=== PATIENT | female | born 1965 | race African-American/Black ===

== ENCOUNTER 2019-05-20 13:03 | Inpatient (IN) | payer MEDICAID ==
[~2019-05-20] VITALS: Ht 172.7 cm; Wt 117.5 kg
--- NOTE | 2019-05-20 13:17 | NUR ---
Patient BIBA ALS accompanied by DENNIS 183, transferred to bed 8. RN evaluating patient at bedside.
[2019-05-20 13:26] VITALS: BP 178/109
--- NOTE | 2019-05-20 13:53 | NUR ---
54 Y/O FEMALE BIB ALS C/O SOB AND DIFFICULTY BREATHING AND HEADACHE AND BILATERAL SHOULDER PAIN X 1 DAY . PT STATES WAS ADMITTED TO [facility] 05/16 FOR SIMILAR CC . PT STATES HAS A COUGH WITH INTERMITTENT YELLOW MUCOUS AND HAS BEEN SLEEPING SITTING UP. VS --> HR 63, RR 26, BP 160/104, TEMP 98.1, 100% ON MASK AT 6 LITERS. BED LOCKED AND IN LOW POSITION, 1 SIDERAIL UP. MEDICAL HX: HTN/CHF/COPD/DM/ASTHMA/SCIATIC PAIN ALLERGIES: MOTRIN/IBUPROFEN/TRAMADOL/KETAMINE
--- NOTE | 2019-05-20 15:02 | NUR ---
LAB AT BEDSIDE
--- NOTE | 2019-05-20 15:25 | NUR ---
PT SITTING UPRIGHT IN BED. VSS. WILL CONTINUE TO MONITOR .
[2019-05-20 15:33] LABS: ALBUMIN 2.9 g/dL (3.4-5.0); ANION GAP 11.9 (8-16); CARBON DIOXIDE 32.1 mmol/L (21-32); CREATININE 0.9 mg/dL (0.6-1.3); TOTAL BILIRUBIN 0.3 mg/dL (0.0-1.0)
[2019-05-20] MEDS ORDERED: MORPHINE SULFATE 4 MG/ML SYR IVP ONE (17:10)
[2019-05-20] MEDS ORDERED: FUROSEMIDE 100 MG/10 ML VIAL IVP ONE (17:15)
[2019-05-20] MEDS ORDERED: LANTUS SUBQ (17:38)
[2019-05-20] MEDS ORDERED: FURO-570 PO (17:38)
[2019-05-20] MEDS ORDERED: CARV3.12 PO (17:38)
--- NOTE | 2019-05-20 17:51 | NUR ---
PT ASSISTED TO BATHROOM VIA W/C.
--- NOTE | 2019-05-20 18:06 | NUR ---
PT SEMI-FOWLERS IN BED. RR EVEN AND UNLABORED. 1 SIDERAIL UP, BED LOW AND LOCKED. VSS. WILL CONTINUE TO MONITOR.
--- NOTE | 2019-05-20 18:16 | NUR ---
PER PT HER PCP HAS HER ON A 2 LITER FLUID RESTRICITON PER DAY. DR. PEDROZA MADE AWARE.
--- NOTE | 2019-05-20 19:15 | NUR ---
RECEIVED BEDSIDE REPORT FROM ER NURSE. PATIENT IS AWAKE, ALERT, AND COOPERATIVE. ADMITTING DIAGNOSIS RESPIRATORY DISTRESS. RESPIRATION EVEN UNLABORED ON 2L NC O2. NO DISTRESS NOTED. SKIN IS WARM AND DRY. IV PATENT AND INTACT. HEART RATE REGULAR. S1&S2 NOTED. BOWEL SOUNDS PRESENT IN ALL QUADRANTS. ABDOMEN SOFT AND NON-TENDER. LAST BM 05/20/19. MRSA SCREEN DONE. VITALS WERE TAKEN. PLAN OF CARE WAS DISCUSSED. ALL SAFETY MEASURES IN PLACE. ORIENT PATIENT TO THE ROOM, STAFF, AND CALL LIGHT. BED IS AT LOW POSITION. CALL LIGHT WITHIN REACH AND VERBALIZES ITS USE. WILL CONTINUE TO MONITOR.
[2019-05-20] MEDS ORDERED: GABA300C PO (19:16)
--- NOTE | 2019-05-20 19:17 | NUR ---
Patient will be admitted to care of DR KING. Admited to TELE. Will go to room 104B. Belongings list completed. Report to BELINDA LEVIN.
[2019-05-20] MEDS ORDERED: LORazepam 2 MG/ML VIAL IVP PRN (19:30)
[2019-05-20] MEDS ORDERED: ONDANSETRON 4 MG/2 ML VIAL IVP PRN (19:30)
[2019-05-20] MEDS ORDERED: ALBUTEROL 0.083% 2.5 MG/3 ML NEBU INH PRN (19:30)
[2019-05-20] MEDS ORDERED: HYDROcodone/APAP 5/325 MG 1 TAB TAB PO PRN (19:30)
[2019-05-20] MEDS ORDERED: ACETAMINOPHEN 325 MG TAB PO PRN (19:30)
[2019-05-20] MEDS ORDERED: DEXTROSE 50% 50 ML SYR IVP PRN (19:30)
[2019-05-20 20:30] LABS: HEMOGLOBIN 11.1 g/dL (12.0-16.0); RED BLOOD CELL COUNT(AUTO) 4.72 MIL/uL (4.20-5.40); WHITE BLOOD COUNT (AUTO) 5.9 K/uL (4.8-10.8)
[2019-05-20 20:31] LABS: MEAN CORPUSCULAR HEMOGLOBIN 24 pg (27-31); MEAN CORPUSCULAR HGB CONC 31 g/dL (33-37); PLATELET COUNT (AUTO) 300 K/uL (140-450); RED CELL DISTRIBUTION WIDTH 19.1 % (11.6-13.7)
--- NOTE | 2019-05-20 20:35 | NUR ---
PATIENT IS HUNGRY PROVIDED SANDWICH AND JUICE
--- NOTE | 2019-05-20 21:00 | NUR ---
[facility] CALLED REGARDING DR. FERNANDO GLOVER ORDER FOR LANTUS. ASKED PATIENT WHATS THE DOSAGE OF HER LANTUS MEDICATION AND THE FREQUENCY. PER PATIENT SHE TAKES 18UNITS OF LANTUS AT BEDTIME. CALLED DR. KING. TO NOTIFY AND VERIFY HIS ORDER. SAID OKAY TO ADMINISTER LANTUS DAILY AT BEDTIME 18 UNITS.
--- NOTE | 2019-05-20 21:40 | NUR ---
ALL SCHEDULED MEDS WERE GIVEN PER ORDER. PATIENT COMPLAINED OF 9/10 BACK PAIN. PRN PAIN MED ADMINISTERED PER ORDER. WILL CONTINUE TO MONITOR.
[2019-05-20] MEDS: MORPHINE SULFATE 2 MG/ML SYR IVP PRN (21:44)
[2019-05-20] MEDS: CARVEDILOL 3.125 MG TAB PO SCH (21:45)
[2019-05-20] MEDS: GABAPENTIN 300 MG CAP PO SCH (21:45)
[2019-05-20] MEDS: BLOOD GLUCOSE MONITORING 1 DEV DEV FS SCH (21:48)
[2019-05-20] MEDS: INSULIN LISPRO SLIDING SCALE 100 UNITS/ML VIAL SUBQ PRN (21:55)
[2019-05-20 21:58] LABS: LYMPHOCYTES % (MANUAL) 43 % (20-46)
[2019-05-20 21:59] LABS: BASOPHILS % (MANUAL) 0 % (0-2); EOSINOPHILS % (MANUAL) 0 % (0-4); MONOCYTES % (MANUAL) 0 % (5-12)
[2019-05-20 23:28] VITALS: BP 159/121
[2019-05-20 23:54] LABS: CREATINE KINASE MB 0.9 ng/mL (0-3.6)
[2019-05-21] VITALS: BP 129/52
--- NOTE | 2019-05-21 | NUR ---
VITALS WERE TAKEN. PATIENT IN STABLE CONDITION. NO DISTRESS NOTED. WILL CONTINUE TO MONITOR.
[2019-05-21] MEDS: IPRATROPIUM 0.02% 0.5 MG/2.5 ML NEBU INH SCH ×4 (01:23→20:08)
[2019-05-21] MEDS: MORPHINE SULFATE 2 MG/ML SYR IVP PRN ×3 (02:03→20:28)
--- NOTE | 2019-05-21 02:04 | NUR ---
PATIENT WOKE UP FROM BACK PAIN 01/03. PRN PAIN MED ADMINISTERED PER ORDER. WILL CONTINUE TO MONITOR.
[2019-05-21 04:00] VITALS: BP 150/100
--- NOTE | 2019-05-21 04:36 | NUR ---
VITALS WERE TAKEN. PATIENT IS IN STABLE CONDITION. NO DISTRESS NOTED. WILL CONTINUE TO MONITOR.
[2019-05-21] MEDS: BLOOD GLUCOSE MONITORING 1 DEV DEV FS SCH ×4 (06:39→21:44)
--- NOTE | 2019-05-21 07:16 | NUR ---
ENDORSED PATIENT TO DAY SHIFT NURSE. PATIENT IS IN STABLE CONDITION.
--- NOTE | 2019-05-21 07:17 | NUR ---
RECEIVED PATIENT FROM DYNAMITE CARTRIDGE CRIMPER NURSE LISA. RESPIRATIONS EVEN AND UNLABORED, ROOM AIR. SKIN ASSESSMENT COMPLETE. SKIN WARM, DRY AND INTACT. IV SITE PATENT AND INTACT. PATIENT IS AMBULATORY AND CONTINENT OF BOWEL AND BLADDER. NO C/O PAIN. NO S/SX ACUTE DISTRESS. PATIENT ORIENTED TO ROOM, STAFF AND CALL LIGHT. CALL LIGHT WITHIN REACH. WILL CONTINUE TO MONITOR.
[2019-05-21 08:00] VITALS: BP 153/99
[2019-05-21 08:22] LABS: BASOPHILS % (AUTO) 0.5 % (0.0-2.0); EOSINOPHILS # (AUTO) 0.1 K/uL (0-0.4); HEMATOCRIT 34.5 % (36-48); HEMOGLOBIN 10.6 g/dL (12.0-16.0); LYMPHOCYTES # (AUTO) 1.8 K/uL (2.5-16.5); MEAN CORPUSCULAR HEMOGLOBIN 23 pg (27-31); MEAN CORPUSCULAR HGB CONC 31 g/dL (33-37); MEAN CORPUSCULAR VOLUME 74.1 fL (80-94); MONOCYTES # (AUTO) 0.3 K/uL (0.8-1.0); MONOCYTES % (AUTO) 7.4 % (1.7-9.3); NEUTROPHILS # (AUTO) 2.4 K/uL (1.8-7.7); NEUTROPHILS % (AUTO) 52.1 % (42.2-75.2); PLATELET COUNT (AUTO) 269 K/uL (140-450); RED BLOOD CELL COUNT(AUTO) 4.65 MIL/uL (4.20-5.40); RED CELL DISTRIBUTION WIDTH 18.6 % (11.6-13.7); WHITE BLOOD COUNT (AUTO) 4.7 K/uL (4.8-10.8)
[2019-05-21 08:27] LABS: CARBON DIOXIDE 35.9 mmol/L (21-32); POTASSIUM 3.9 mmol/L (3.5-5.1)
--- NOTE | 2019-05-21 08:35 | NUR ---
DISCHARGE PLANNING: THIS IS A 54 Y/O OLD FEMALE PATIENT FROM HOME, WHO CAME IN DUE TO SOB. PAST MEDICAL HISTORY INCLUDE ASTHMA, CORONARY ARTERY DISEASE, COPD, DIABETES, CHF AND SCIATICA. INITIAL DIAGNOSIS OF RESPIRATORY DISTRESS. CURRENT LABS INCLUDE WBC 4.8, H/H 10.6/34.5, NA/K 143/3.9, BUN/CREA 17/1.0. MRSA NARES PENDING. ON LASIX IV. CARDIO AND PULMO CONSULTS IN PLACE. DC PLAN BACK TO HOME ONCE STABLE.
--- NOTE | 2019-05-21 08:38 | NUR ---
PATIENT HAS BEEN SCREENED AND CATEGORIZED MODERATE NUTRITION RISK. PATIENT WILL BE SEEN WITHIN 3-5 DAYS OF ADMISSION. 05/23/19 05/25/[address]
[2019-05-21 08:43] LABS: CREATINE KINASE MB 0.9 ng/mL (0-3.6)
[2019-05-21] MEDS: FUROSEMIDE 40 MG/4 ML VIAL IVP SCH ×2 (08:59→17:42)
[2019-05-21] MEDS ORDERED: INSULIN LANTUS 100 UNITS/ML 10 ML VIAL SUBQ SCH (09:00)
[2019-05-21] MEDS: GABAPENTIN 300 MG CAP PO SCH ×2 (09:00→21:32)
[2019-05-21] MEDS: CARVEDILOL 3.125 MG TAB PO SCH ×2 (09:00→21:33)
--- NOTE | 2019-05-21 09:00 | NUR ---
GAVE ORDERED DUE MEDICATIONS AT THIS TIME. PT TOLERATED WELL. BED IN LOW POSITION, CALL LIGHT AT BEDSIDE. WILL CONTINUE TO MONITOR.
[2019-05-21 11:17] LABS: MAGNESIUM 1.4 mg/dL (1.8-2.4)
--- NOTE | 2019-05-21 11:56 | NUR ---
PT IN RESTROOM AT THIS TIME. WILL CONTINUE TO MONITOR.
[2019-05-21 12:00] VITALS: BP 159/92
--- NOTE | 2019-05-21 13:13 | NUR ---
PT STATED DISLIKE FOR HOSPITAL FOOD. RETRIEVED BUTTER AND EXTRA SAUCE FOR MEAL FROM [facility]. PT IN STABLE CONDITION. BED IN LOW POSITION, CALL LIGHT AT BEDSIDE. WILL CONTINUE TO MONITOR.
--- NOTE | 2019-05-21 15:10 | NUR ---
GUY REPORTED TO DR KING PLACED I L N\C
[2019-05-21 16:00] VITALS: BP 158/98
--- NOTE | 2019-05-21 17:24 | NUR ---
PT EATING DINNER AT THIS TIME IN STABLE CONDITION. BED IN LOW POSITION, CALL LIGHT AT BEDSIDE. WILL CONTINUE TO MONITOR.
--- NOTE | 2019-05-21 19:24 | NUR ---
GAVE REPORT TO JUKE BOX SERVICER NURSE ZACHARY FOR CONTINUITY OF CARE. PT IN STABLE CONDITION.
--- NOTE | 2019-05-21 19:25 | NUR ---
RECEIVED BEDSIDE REPORT FROM AM SHIFT NURSE. PATIENT IS LYING ON BED, AWAKE AND ALERT. NO SOB OR DISTRESS NOTED ON 1 LPM VIA NASAL CANNULA. PATIENT IS AMBULATORY. IV ACCESS ON LEFT HAND 20 GAUGE, SALINE LOCK. PATENT AND INTACT. INITIAL ASSESSMENT DONE. BOARD UPDATED. BED IN LOW, SAFETY MEASURES IN PLACE. CALL LIGHT PLACED WITHIN PATIENT REACH. WILL CONTINUE TO MONITOR PATIENT.
[2019-05-21 20:00] VITALS: BP 147/95
--- NOTE | 2019-05-21 20:17 | NUR ---
RECEIVED PATIENT ON 1L NASAL CANNULA, PULSE OX SAT 98%. SCHEDULED BREATHING TREATMENT ADMINISTERED. TOLERATED TX WELL WITHOUT ADVERSE SIDE EFFECTS. PT MADE AWARE OF ORDERED MEDICATION FREQUENCY AND INSTRUCTED TO CALL NEEDED FOR SOB. NO ACUTE RESPIRATORY DISTRESS NOTED AT THIS TIME. WILL CONTINUE TO MONITOR.
[2019-05-21] MEDS: INSULIN LANTUS 100 UNITS/ML 10 ML VIAL SUBQ SCH (21:41)
[2019-05-21] MEDS: INSULIN LISPRO SLIDING SCALE 100 UNITS/ML VIAL SUBQ PRN (21:43)
--- NOTE | 2019-05-21 21:44 | NUR ---
PATIENT HAS A BLOOD GLUCOSE RESULT OF 244 WITH 4 UNITS OF REGULAR HUMALOG INSULIN GIVEN AT THIS TIME.
[2019-05-22 00:05] VITALS: BP 143/98
--- NOTE | 2019-05-22 00:05 | NUR ---
VITALS TAKEN AT THIS VISIBLE CHEST RISE AND FALL NOTED. WILL CONTINUE TO MONITOR PATIENT.
[2019-05-22] MEDS: IPRATROPIUM 0.02% 0.5 MG/2.5 ML NEBU INH SCH ×4 (01:50→18:49)
--- NOTE | 2019-05-22 01:59 | NUR ---
SCHEDULED BREATHING TREATMENT ADMINISTERED. TOLERATED TX WELL WITHOUT ADVERSE SIDE EFFECTS. NO ACUTE RESPIRATORY DISTRESS NOTED AT THIS TIME. WILL CONTINUE TO MONITOR.
--- NOTE | 2019-05-22 03:28 | NUR ---
ROUNDS DONE. NO SOB OR DISTRESS NOTED. CALL LIGHT PLACED WITHIN PATIENT REACH. WILL CONTINUE TO MONITOR PATIENT.
[2019-05-22 04:05] VITALS: BP 148/94
--- NOTE | 2019-05-22 04:05 | NUR ---
VITALS TAKEN AT THIS TIME. NO DISTRESS NOTED. WILL CONTINUE TO MONITOR PATIENT.
[2019-05-22] MEDS: BLOOD GLUCOSE MONITORING 1 DEV DEV FS SCH ×4 (06:50→20:55)
--- NOTE | 2019-05-22 06:51 | NUR ---
PATIENT HAD A BLOOD GLUCOSE OF 109. NO INSULIN COVERAGE NEEDED.
--- NOTE | 2019-05-22 07:15 | NUR ---
RECEIVED BEDSDIE REPORT FROM WOOD BORING MACHINE OPERATOR NURSE ZACHARY. PT IS AWAKE AND ALERT GETTING A BREATHING TX AT THIS TIME. PT IN NO ACUTE DISTRESS. PT NOT ON FALL PRECAUTIONS. PT IS ON 1 L O1 NC. IV SITE L HAND 20 G, SALINE LOCKED. SKIN IS INTACT. CALL LIGHT IS WITHIN REACH.
[2019-05-22 08:00] VITALS: BP 152/93
[2019-05-22] MEDS: GABAPENTIN 300 MG CAP PO SCH ×2 (09:35→20:57)
[2019-05-22] MEDS: FUROSEMIDE 40 MG/4 ML VIAL IVP SCH ×2 (09:35→16:30)
[2019-05-22] MEDS: CARVEDILOL 3.125 MG TAB PO SCH ×2 (09:35→20:57)
--- NOTE | 2019-05-22 09:45 | NUR ---
AM MEDS ADMINISTERED, PT TOLERATED WELL. PT IS CURRENTLY SATTING 94-97% ON ROOM AIR. DAUGHTER IS VISITING AT BEDSIDE. PT IN NO ACUTE RESPIRATORY DISTRESS. C/O BACK PAIN, WILL ADMINISTER PRN IV MORPHINE.
[2019-05-22] MEDS: MORPHINE SULFATE 2 MG/ML SYR IVP PRN ×3 (10:01→21:07)
--- NOTE | 2019-05-22 10:15 | NUR ---
PT ASKING TO TALK TO A DIETITIAN ABOUT HER MEAL OPTIONS. PT DOES NOT LIKE THE HOSPITAL'S MEAL OFFERS. I CALLED [facility] AND LEFT A MESSAGE FOR A DIETITIAN OR A GOLD LETTERER TO COME TALK TO THE PT.
[2019-05-22 12:00] VITALS: BP 152/91
[2019-05-22] MEDS: INSULIN LISPRO SLIDING SCALE 100 UNITS/ML VIAL SUBQ PRN ×2 (12:15→21:14)
[2019-05-22 16:00] VITALS: BP 135/91
--- NOTE | 2019-05-22 18:53 | NUR ---
RECEIVED PT FROM AM SHIFT. PT IN NO APPARENT RESPIRATORY DISTRESS AT THIS TIME; HR 94, RR 18, SPO2 96% ON ROOM AIR AND A CLEAR BREATH SOUNDS ON THE UPPER LOBES; DIMINISHED BREATH SOUNDS ON LOWER LOBES. HHN TX GIVEN ORDERED WITH NO ADVERSE REACTION. PT INFORMED TO CALL RN OR SUPPLY CHAIN ASSISTANT FOR HHN PRN TX WHEN EXPERIENCING SOB. HOB > 30. FAMILY AT BEDSIDE. WILL CONTINUE TO MONITOR PT.
--- NOTE | 2019-05-22 19:22 | NUR ---
RECIEVED PT AAOX4 , NID - 02 SAT WNL , IV SITE INTACT AND PATENT , C/O FUENTES - WILL MEDICATED . PLAN OF CARE DISCUSSED AND VERBALIZE UNDERSTANDING , ON SAFETY PRECAUTION PROTOCOL - CALL LIGHT WITHIN REACH . WILL CONT. TO MONITOR.
--- NOTE | 2019-05-22 19:22 | NUR ---
ENDORSED PT TO WIRE RIGGER NURSE IN STABLE CONDITION.
[2019-05-22 20:00] VITALS: BP 130/80
[2019-05-22] MEDS: INSULIN LANTUS 100 UNITS/ML 10 ML VIAL SUBQ SCH (21:02)
--- NOTE | 2019-05-22 22:00 | NUR ---
MADE ROUNDS , PROVIDE SANDWICH FOR SNACKS , REDUCED FUENTES SHE SAID , ISMAEL. TO MONITOR.
[2019-05-23] VITALS: BP 133/75
--- NOTE | 2019-05-23 | NUR ---
MADE ROUNDS , NO S/S OF ACUTE DISTRESS NOTED AT THIS TIME , WILL CONT. TO MONITOR , CALL LIGHT WITHIN REACH.
[2019-05-23] MEDS: IPRATROPIUM 0.02% 0.5 MG/2.5 ML NEBU INH SCH ×2 (00:18→11:00)
--- NOTE | 2019-05-23 01:40 | NUR ---
MADE ROUNDS , NO S/ S OF ACUTE DISTRESS NOTED AT THIS TIME . CALL LIGHT WITHIN REACH.
[2019-05-23] MEDS: MORPHINE SULFATE 2 MG/ML SYR IVP PRN (03:37)
[2019-05-23 04:00] VITALS: BP 125/80
--- NOTE | 2019-05-23 04:00 | NUR ---
MADE ROUNDS , NO S/ S OF ACUTE DISTRESS NOTED AT THIS TIME , JUST MEDICATED W/ MORPHINE - WILL CONT. TO MONITOR.
[2019-05-23] MEDS: BLOOD GLUCOSE MONITORING 1 DEV DEV FS SCH ×2 (05:58→11:30)
--- NOTE | 2019-05-23 06:09 | NUR ---
MADE ROUNDS , NO COMPLAIN MADE AT THIS TIME , LATEST HGT 11O
--- NOTE | 2019-05-23 07:10 | NUR ---
ENDORSED - PT -STABLE.
--- NOTE | 2019-05-23 07:15 | NUR ---
RECEIVED PT FROM HUMAN RESOURCES COORDINATOR NURSE, SEBAS, PT IS AWAKE AND SEATED ON THE BED WITH SIDE RAILS UP AND CALL LIGHT WITHIN REACH, IV LINE ON THE LEFT HAND G. 20 ON SALINE LOCK, PT IS ON ROOM AIR AND DENIES PAIN AND NO SIGN OF DISTRESS NOTED AND WILL MONITOR PT.
[2019-05-23 08:00] VITALS: BP 150/96
--- NOTE | 2019-05-23 08:22 | NUR ---
PATIENT HAS BEEN SCREENED AND CATEGORIZED MODERATE NUTRITION RISK. PATIENT WILL BE SEEN WITHIN 3-5 DAYS OF ADMISSION. 05/25/19 05/27/[address] Addendum: 05/23/19 at [address] DISREGARD NOTE ABOVE.
[2019-05-23] MEDS ORDERED: LANTUS SUBQ (08:56)
[2019-05-23] MEDS: GABAPENTIN 300 MG CAP PO SCH (09:03)
[2019-05-23] MEDS: FUROSEMIDE 40 MG/4 ML VIAL IVP SCH (09:03)
--- NOTE | 2019-05-23 09:03 | NUR ---
PT WAS GIVEN THE SCHEDULED AM MEDICATIONS, PARAMETER CHECKED, BP IS 150/96, TEMP IS 97.9,PULSE IS 80 MANUALLY, WILL MONITOR PT.
[2019-05-23] MEDS: CARVEDILOL 3.125 MG TAB PO SCH (09:05)
[2019-05-23 09:33] LABS: EOSINOPHILS # (AUTO) 0.1 K/uL (0-0.4); HEMOGLOBIN 10.6 g/dL (12.0-16.0); NEUTROPHILS # (AUTO) 2.2 K/uL (1.8-7.7); WHITE BLOOD COUNT (AUTO) 4.8 K/uL (4.8-10.8)
[2019-05-23 09:40] LABS: HEMATOCRIT 33.2 % (36-48); MEAN CORPUSCULAR HEMOGLOBIN 23 pg (27-31); MEAN CORPUSCULAR HGB CONC 32 g/dL (33-37); MEAN CORPUSCULAR VOLUME 70.9 fL (80-94); PLATELET COUNT (AUTO) 211 K/uL (140-450); RED BLOOD CELL COUNT(AUTO) 4.69 MIL/uL (4.20-5.40); RED CELL DISTRIBUTION WIDTH 19.3 % (11.6-13.7)
[2019-05-23 09:43] LABS: BASOPHILS # (AUTO) 0.1 K/uL (0.00-0.22); BASOPHILS % (AUTO) 1.5 % (0.0-2.0); EOSINOPHILS % (AUTO) 1.8 % (0.0-4.0); LYMPHOCYTES # (AUTO) 2.2 K/uL (2.5-16.5); LYMPHOCYTES % (AUTO) 44.9 % (20.5-51.1); MONOCYTES # (AUTO) 0.3 K/uL (0.8-1.0); MONOCYTES % (AUTO) 6.3 % (1.7-9.3); NEUTROPHILS % (AUTO) 45.5 % (42.2-75.2)
[2019-05-23 09:46] LABS: ANION GAP 7.3 (8-16); CARBON DIOXIDE 36.2 mmol/L (21-32); CREATININE 1.1 mg/dL (0.6-1.3); POTASSIUM 3.5 mmol/L (3.5-5.1)
--- NOTE | 2019-05-23 11:30 | NUR ---
PT'S BLOOD GLUCOSE WAS CHECKED AND RESULT IS 147, NO INSULIN COVERAGE NEEDED. WILL MONITOR PT.
[2019-05-23 12:00] VITALS: BP 136/87
--- NOTE | 2019-05-23 14:55 | NUR ---
DISCHARGED PT. TO HOME. ACCOMPANIED BY FAMILY. IV LINE AND ARMBANDS REMOVED. HEART MONITOR REMOVED. DISCHARGED TEACHING GIVEN TO PT. AND PT. VERBALIZES UNDERSTANDING. PT. DENIES PAIN AND STABLE AT THIS TIME.
== END 2019-05-23 14:55 | disposition home or self-care (01) | DRG 133 ==
LOC: MED 13:03 → MTU 18:44
PROVIDERS: ADMIT Preventive Medicine Preventive Medicine/Occupational Environmental Medicine; ATTEND Preventive Medicine Preventive Medicine/Occupational Environmental Medicine
DX: J96.01 Acute respiratory failure with hypoxia (principal); I42.9 Cardiomyopathy, unspecified; E11.40 Type 2 diabetes mellitus with diabetic neuropathy, unspecified; E11.65 Type 2 diabetes mellitus with hyperglycemia; E88.09 Other disorders of plasma-protein metabolism, not elsewhere classified; I50.9 Heart failure, unspecified; I11.0 Hypertensive heart disease with heart failure; I25.10 Atherosclerotic heart disease of native coronary artery without angina pectoris; J44.9 Chronic obstructive pulmonary disease, unspecified; M54.30 Sciatica, unspecified side; Z88.8 Allergy status to other drugs, medicaments and biological substances; Z98.51 Tubal ligation status
CPT/HCPCS: 36415; 36600; 71045; 80048; 80053; 82550; 82553; 82803; 82948; 83735; 83880; 84100; 84484; 85025; 87081; 93005; 94640; 96374; 96375; 99285; J1815; J1940; J2270; J7613; J7644; Q0092

== ENCOUNTER 2019-05-30 19:41 | Inpatient (IN) | payer MEDICAID ==
[~2019-05-30] VITALS: Ht 172.7 cm; Wt 115.2 kg
[~2019-05-30 19:41] MED LIST: CARV3.12 PO; FURO-570 PO; GABA300C PO; LANTUS SUBQ
[2019-05-30 19:45] VITALS: BP 161/120
[2019-05-30] MEDS ORDERED: methylPREDNISolone SS 125 MG in WATER STERILE 2 ML IVP ONE (20:50)
[2019-05-30] MEDS ORDERED: FUROSEMIDE 40 MG/4 ML VIAL IVP ONE (20:50)
[2019-05-30] MEDS ORDERED: ALBUTEROL SULFATE/IPRATROPIU 3 ML SOL IH ONE (20:50)
[2019-05-30] MEDS ORDERED: MORPHINE SULFATE 4 MG/ML SYR IVP ONE (20:50)
[2019-05-30] MEDS ORDERED: MAG SULF 2000 MG/WATER PREMIX 50 ML IV ONE (20:50)
[2019-05-30] MEDS ORDERED: ENALAPRILAT 2.5 MG/2 ML VIAL IVP ONE (20:50)
[2019-05-30] MEDS ORDERED: methylPREDNISolone SS 125 MG/2 ML VIAL ONE (20:57)
[2019-05-30] MEDS ORDERED: WATER STERILE 10 ML MC ONE (20:57)
[2019-05-30] MEDS ORDERED: ONDANSETRON 4 MG/2 ML VIAL IVP ONE (21:05)
[2019-05-30 21:28] LABS: BASOPHILS # (AUTO) 0.2 K/uL (0.00-0.22); BASOPHILS % (AUTO) 2.5 % (0.0-2.0); EOSINOPHILS # (AUTO) 0.1 K/uL (0-0.4); EOSINOPHILS % (AUTO) 1.7 % (0.0-4.0); HEMATOCRIT 35.5 % (36-48); HEMOGLOBIN 11.4 g/dL (12.0-16.0); LYMPHOCYTES # (AUTO) 2.4 K/uL (2.5-16.5); LYMPHOCYTES % (AUTO) 38.3 % (20.5-51.1); MEAN CORPUSCULAR HEMOGLOBIN 23 pg (27-31); MEAN CORPUSCULAR HGB CONC 32 g/dL (33-37); MEAN CORPUSCULAR VOLUME 71.4 fL (80-94); MONOCYTES # (AUTO) 0.5 K/uL (0.8-1.0); MONOCYTES % (AUTO) 7.5 % (1.7-9.3); NEUTROPHILS # (AUTO) 3.1 K/uL (1.8-7.7); PLATELET COUNT (AUTO) 192 K/uL (140-450); RED BLOOD CELL COUNT(AUTO) 4.97 MIL/uL (4.20-5.40); RED CELL DISTRIBUTION WIDTH 18.9 % (11.6-13.7); WHITE BLOOD COUNT (AUTO) 6.3 K/uL (4.8-10.8)
[2019-05-30 21:37] LABS: APPEARANCE,URINE CLEAR (CLEAR); BILIRUBIN,URINE NEGATIVE (NEGATIVE); BLOOD, URINE TRACE-I (NEGATIVE); COLOR,URINE YELLOW (YELLOW); LEUKOCYTE ESTERASE ,URINE NEGATIVE (NEGATIVE); NITRITE, URINE NEGATIVE (NEGATIVE); PH,URINE 5.5 (5.0-9.0); UGLUCOSE NEGATIVE (NEGATIVE)
[2019-05-30 21:38] LABS: ALBUMIN 3.3 g/dL (3.4-5.0); ANION GAP 12.4 (8-16); CARBON DIOXIDE 28.6 mmol/L (21-32); CREATININE 1.2 mg/dL (0.6-1.3); TOTAL BILIRUBIN 0.3 mg/dL (0.0-1.0)
[2019-05-31] MEDS ORDERED: ACETAMINOPHEN EXTRA STRENGTH 500 MG TAB PO ONE (01:10)
[2019-05-31] MEDS ORDERED: hydrALAZINE 20 MG/ML VIAL IVP ONE (01:10)
[2019-05-31 02:00] VITALS: BP 161/100
[2019-05-31] MEDS ORDERED: DEXTROSE 50% 50 ML SYR IVP PRN (02:55)
[2019-05-31] MEDS ORDERED: cloNIDine 0.1 MG TAB PO PRN (02:55)
[2019-05-31] MEDS ORDERED: HYDROcodone/APAP 5/325 MG 1 TAB TAB PO PRN ×2 (02:55→13:35)
[2019-05-31] MEDS ORDERED: HYDROcodone/APAP 10/325 MG 1 TAB TAB ONE (03:23)
[2019-05-31 04:00] VITALS: BP 129/81
[2019-05-31] MEDS: BLOOD GLUCOSE MONITORING 1 DEV DEV FS SCH ×4 (06:53→21:14)
[2019-05-31] MEDS: INSULIN LISPRO SLIDING SCALE 100 UNITS/ML VIAL SUBQ PRN ×4 (06:53→21:37)
[2019-05-31 07:22] LABS: HEMATOCRIT 35.1 % (36-48); HEMOGLOBIN 10.9 g/dL (12.0-16.0); MEAN CORPUSCULAR HEMOGLOBIN 23 pg (27-31); MEAN CORPUSCULAR HGB CONC 31 g/dL (33-37); MEAN CORPUSCULAR VOLUME 73.5 fL (80-94); PLATELET COUNT (AUTO) 166 K/uL (140-450); RED BLOOD CELL COUNT(AUTO) 4.78 MIL/uL (4.20-5.40); RED CELL DISTRIBUTION WIDTH 18.8 % (11.6-13.7); WHITE BLOOD COUNT (AUTO) 8.5 K/uL (4.8-10.8)
[2019-05-31 07:48] LABS: ALBUMIN 3.1 g/dL (3.4-5.0); ANION GAP 10.2 (8-16); CARBON DIOXIDE 30.3 mmol/L (21-32); CREATININE 1.3 mg/dL (0.6-1.3); POTASSIUM 4.5 mmol/L (3.5-5.1); TOTAL BILIRUBIN 0.4 mg/dL (0.0-1.0)
[2019-05-31 08:00] VITALS: BP 140/84
[2019-05-31] MEDS ORDERED: ONDANSETRON 4 MG/2 ML VIAL ONE (09:20)
[2019-05-31 09:30] LABS: LYMPHOCYTES % (MANUAL) 10 % (20-46); MONOCYTES % (MANUAL) 3 % (5-12)
[2019-05-31] MEDS ORDERED: ONDANSETRON 4 MG/2 ML VIAL IVP PRN (09:30)
[2019-05-31] MEDS: GABAPENTIN 300 MG CAP PO SCH ×2 (09:32→21:10)
[2019-05-31] MEDS: FUROSEMIDE 40 MG TAB PO SCH ×2 (09:32→21:10)
[2019-05-31] MEDS: CARVEDILOL 3.125 MG TAB PO SCH ×2 (09:33→21:10)
[2019-05-31] MEDS: methylPREDNISolone SS 40 MG/ML VIAL IVP SCH ×2 (09:33→21:09)
[2019-05-31 12:00] VITALS: BP 143/77
[2019-05-31] MEDS ORDERED: ACETAMINOPHEN 325 MG TAB PO PRN (13:35)
[2019-05-31] MEDS ORDERED: LORazepam 2 MG/ML VIAL IVP PRN (13:35)
[2019-05-31] MEDS ORDERED: ALBUTEROL 0.083% 2.5 MG/3 ML NEBU INH PRN (13:35)
[2019-05-31 14:14] LABS: CREATINE KINASE MB 1.3 ng/mL (0-3.6)
[2019-05-31 16:00] VITALS: BP 144/80
[2019-05-31] MEDS: IPRATROPIUM 0.02% 0.5 MG/2.5 ML NEBU INH SCH (19:09)
[2019-05-31 20:00] VITALS: BP 128/76
[2019-05-31] MEDS: INSULIN LANTUS 100 UNITS/ML 10 ML VIAL SUBQ SCH (21:13)
[2019-05-31] MEDS: ONDANSETRON 4 MG/2 ML VIAL IVP PRN (21:23)
[2019-06-01] VITALS: BP 148/78
[2019-06-01] MEDS: IPRATROPIUM 0.02% 0.5 MG/2.5 ML NEBU INH SCH ×4 (01:00→19:40)
[2019-06-01 04:00] VITALS: BP 145/85
[2019-06-01] MEDS: INSULIN LISPRO SLIDING SCALE 100 UNITS/ML VIAL SUBQ PRN ×4 (06:49→20:19)
[2019-06-01 07:18] LABS: BASOPHILS # (AUTO) 0.1 K/uL (0.00-0.22); BASOPHILS % (AUTO) 1.3 % (0.0-2.0); EOSINOPHILS % (AUTO) 0.1 % (0.0-4.0); HEMATOCRIT 34.8 % (36-48); HEMOGLOBIN 10.9 g/dL (12.0-16.0); LYMPHOCYTES # (AUTO) 1.4 K/uL (2.5-16.5); LYMPHOCYTES % (AUTO) 20.9 % (20.5-51.1); MEAN CORPUSCULAR HEMOGLOBIN 23 pg (27-31); MEAN CORPUSCULAR HGB CONC 31 g/dL (33-37); MEAN CORPUSCULAR VOLUME 73.5 fL (80-94); MONOCYTES # (AUTO) 0.2 K/uL (0.8-1.0); MONOCYTES % (AUTO) 3.4 % (1.7-9.3); NEUTROPHILS # (AUTO) 5.1 K/uL (1.8-7.7); NEUTROPHILS % (AUTO) 74.3 % (42.2-75.2); PLATELET COUNT (AUTO) 193 K/uL (140-450); RED BLOOD CELL COUNT(AUTO) 4.73 MIL/uL (4.20-5.40); RED CELL DISTRIBUTION WIDTH 18.9 % (11.6-13.7); WHITE BLOOD COUNT (AUTO) 6.8 K/uL (4.8-10.8)
[2019-06-01] MEDS: BLOOD GLUCOSE MONITORING 1 DEV DEV FS SCH ×4 (07:37→20:15)
[2019-06-01 07:38] LABS: ANION GAP 11.6 (8-16); CARBON DIOXIDE 29.7 mmol/L (21-32); CREATININE 1.3 mg/dL (0.6-1.3); POTASSIUM 4.3 mmol/L (3.5-5.1)
[2019-06-01 07:42] LABS: MAGNESIUM 1.7 mg/dL (1.8-2.4)
[2019-06-01 08:00] VITALS: BP 145/84
[2019-06-01] MEDS: ONDANSETRON 4 MG/2 ML VIAL IVP PRN ×3 (08:12→20:18)
[2019-06-01] MEDS: methylPREDNISolone SS 40 MG/ML VIAL IVP SCH ×2 (08:15→20:15)
[2019-06-01] MEDS: GABAPENTIN 300 MG CAP PO SCH ×2 (08:16→20:15)
[2019-06-01] MEDS: FUROSEMIDE 40 MG TAB PO SCH ×2 (08:16→20:15)
[2019-06-01] MEDS: CARVEDILOL 3.125 MG TAB PO SCH ×2 (08:17→20:15)
[2019-06-01 12:00] VITALS: BP 125/84
[2019-06-01 14:32] LABS: CREATINE KINASE MB 0.9 ng/mL (0-3.6)
[2019-06-01 16:00] VITALS: BP 138/78
[2019-06-01] MEDS: ACETAMINOPHEN 325 MG TAB PO PRN (18:23)
[2019-06-01] MEDS: HYDROcodone/APAP 10/325 MG 1 TAB TAB PO PRN (18:59)
[2019-06-01 20:00] VITALS: BP 139/67
[2019-06-01] MEDS: INSULIN LANTUS 100 UNITS/ML 10 ML VIAL SUBQ SCH (20:16)
[2019-06-01] MEDS: MORPHINE SULFATE 2 MG/ML SYR IVP PRN (23:22)
[2019-06-02] VITALS: BP 134/89
[2019-06-02] MEDS: IPRATROPIUM 0.02% 0.5 MG/2.5 ML NEBU INH SCH ×4 (01:00→19:52)
[2019-06-02] MEDS: CHLORHEXADINE GLUC 2% CLOTH TP SCH ×2 (01:48→13:03)
[2019-06-02 04:00] VITALS: BP 146/86
[2019-06-02] MEDS: MORPHINE SULFATE 2 MG/ML SYR IVP PRN ×4 (04:30→21:13)
[2019-06-02] MEDS: BLOOD GLUCOSE MONITORING 1 DEV DEV FS SCH ×4 (06:25→21:10)
[2019-06-02] MEDS: INSULIN LISPRO SLIDING SCALE 100 UNITS/ML VIAL SUBQ PRN ×4 (06:26→21:35)
[2019-06-02 08:00] VITALS: BP 134/88
[2019-06-02] MEDS: MUPIROCIN CA NASAL 2% 1GM TUBE NS SCH (08:11)
[2019-06-02] MEDS: FUROSEMIDE 40 MG TAB PO SCH ×2 (08:11→21:12)
[2019-06-02] MEDS: methylPREDNISolone SS 40 MG/ML VIAL IVP SCH ×2 (08:11→21:11)
[2019-06-02] MEDS: GABAPENTIN 300 MG CAP PO SCH ×2 (08:12→21:11)
[2019-06-02] MEDS: HYDROcodone/APAP 10/325 MG 1 TAB TAB PO PRN (08:12)
[2019-06-02] MEDS: CARVEDILOL 3.125 MG TAB PO SCH ×2 (08:12→21:11)
[2019-06-02] MEDS ORDERED: MUPIROCIN CA NASAL 2% 1GM TUBE NS SCH (09:00)
[2019-06-02 12:00] VITALS: BP 130/88
[2019-06-02 16:00] VITALS: BP 143/81
[2019-06-02 20:00] VITALS: BP 150/88
[2019-06-02] MEDS: INSULIN LANTUS 100 UNITS/ML 10 ML VIAL SUBQ SCH (21:13)
[2019-06-02] MEDS: ONDANSETRON 4 MG/2 ML VIAL IVP PRN (21:34)
[2019-06-03] VITALS: BP 158/100
[2019-06-03] MEDS: CHLORHEXADINE GLUC 2% CLOTH TP SCH ×2 (01:00→13:36)
[2019-06-03] MEDS: IPRATROPIUM 0.02% 0.5 MG/2.5 ML NEBU INH SCH ×3 (01:23→15:32)
[2019-06-03 04:00] VITALS: BP 140/88
[2019-06-03] MEDS: MORPHINE SULFATE 2 MG/ML SYR IVP PRN ×2 (04:32→11:32)
[2019-06-03] MEDS: BLOOD GLUCOSE MONITORING 1 DEV DEV FS SCH ×3 (06:20→17:03)
[2019-06-03] MEDS: INSULIN LISPRO SLIDING SCALE 100 UNITS/ML VIAL SUBQ PRN ×3 (07:07→17:53)
[2019-06-03 08:00] VITALS: BP 170/80
[2019-06-03] MEDS: MUPIROCIN CA NASAL 2% 1GM TUBE NS SCH (09:04)
[2019-06-03] MEDS: FUROSEMIDE 40 MG TAB PO SCH (09:05)
[2019-06-03] MEDS: GABAPENTIN 300 MG CAP PO SCH (09:05)
[2019-06-03] MEDS: CARVEDILOL 3.125 MG TAB PO SCH (09:05)
[2019-06-03] MEDS: ACETAMINOPHEN 325 MG TAB PO PRN (09:05)
[2019-06-03] MEDS: ONDANSETRON 4 MG/2 ML VIAL IVP PRN (09:11)
[2019-06-03] MEDS: methylPREDNISolone SS 40 MG/ML VIAL IVP SCH (09:18)
[2019-06-03 12:00] VITALS: BP 156/107
[2019-06-03 16:00] VITALS: BP 156/91
[2019-06-03] MEDS ORDERED: PRED20TA5 PO (17:41)
[2019-06-03] MEDS ORDERED: PRED10TA5 PO (17:41)
[2019-06-03 17:59] VITALS: BP 156/91
== END 2019-06-03 20:02 | disposition home or self-care (01) | DRG 140 ==
LOC: MED 19:41 → MTU 05-31 00:51
PROVIDERS: ADMIT Preventive Medicine Preventive Medicine/Occupational Environmental Medicine; ATTEND Preventive Medicine Preventive Medicine/Occupational Environmental Medicine
DX: J44.1 Chronic obstructive pulmonary disease with (acute) exacerbation (principal); J96.00 Acute respiratory failure, unspecified whether with hypoxia or hypercapnia; I11.0 Hypertensive heart disease with heart failure; I50.9 Heart failure, unspecified; E11.65 Type 2 diabetes mellitus with hyperglycemia; D64.9 Anemia, unspecified; E83.52 Hypercalcemia; E66.9 Obesity, unspecified; E88.09 Other disorders of plasma-protein metabolism, not elsewhere classified; Z88.8 Allergy status to other drugs, medicaments and biological substances; Z79.4 Long term (current) use of insulin; Z68.38 Body mass index [BMI] 38.0-38.9, adult
CPT/HCPCS: 36415; 71045; 80048; 80053; 81003; 82550; 82553; 82948; 83735; 83880; 84100; 84484; 85025; 87081; 93005; 94640; 96365; 96375; 99285; J0360; J1815; J1940; J2270; J2405; J2920; J2930; J3475; J3490; J7613; J7644

== ENCOUNTER 2019-06-05 12:30 | Inpatient (IN) | payer MEDICAID ==
[~2019-06-05] VITALS: Ht 172.7 cm; Wt 113.4 kg
[~2019-06-05 12:30] MED LIST changes: +PRED10TA5 PO; +PRED20TA5 PO
[2019-06-05 12:33] VITALS: BP 150/96
[2019-06-05] MEDS ORDERED: IPRATROPIUM 0.02% 0.5 MG/2.5 ML NEBU INH ONE (12:50)
[2019-06-05] MEDS ORDERED: LEVALBUTEROL 1.25 MG/0.5 ML NEBU INH ONE (12:50)
--- NOTE | 2019-06-05 12:50 | NUR ---
ERMD AT BEDSIDE EVALUATING PT
[2019-06-05] MEDS ORDERED: MORPHINE SULFATE 2 MG/ML SYR IVP ONE (12:55)
[2019-06-05] MEDS ORDERED: ASPIRIN 81 MG TAB.CHEW PO ONE (12:55)
[2019-06-05] MEDS ORDERED: ONDANSETRON 4 MG/2 ML VIAL IVP ONE (12:55)
--- NOTE | 2019-06-05 13:00 | NUR ---
BIBA W C/O INCREASING SOB/CHEST PAIN X2 DAYS. PT WAS RECENTLY D/C FROM [facility] 1 WEEK AGO FOR PNEUMONIA. BREATHING IS LABORED AND SHALLOW, PT IS TACHYPNEIC. O2 SAT 94% RA, PT ARRIVED TO ER ON BREATHING TX. PT CHEST PAIN 6/10, NON RADIATING. PT DENIES N/V. PT SKIN WARM/DRY. PT ALERT AND ANSWERING QUESTIONS APPROPRIATELY. SIDE RAIL UP X1, PT PLACED ON BEDSIDE SEO EXPERT AT THIS TIME.
[2019-06-05 13:47] LABS: BASOPHILS # (AUTO) 0.1 K/uL (0.00-0.22); EOSINOPHILS # (AUTO) 0.1 K/uL (0-0.4); EOSINOPHILS % (AUTO) 0.7 % (0.0-4.0); HEMATOCRIT 36.6 % (36-48); HEMOGLOBIN 11.5 g/dL (12.0-16.0); LYMPHOCYTES # (AUTO) 1.7 K/uL (2.5-16.5); MEAN CORPUSCULAR HEMOGLOBIN 23 pg (27-31); MEAN CORPUSCULAR HGB CONC 31 g/dL (33-37); MEAN CORPUSCULAR VOLUME 73.5 fL (80-94); MONOCYTES # (AUTO) 0.4 K/uL (0.8-1.0); MONOCYTES % (AUTO) 4.3 % (1.7-9.3); NEUTROPHILS # (AUTO) 6.3 K/uL (1.8-7.7); PLATELET COUNT (AUTO) 254 K/uL (140-450); RED BLOOD CELL COUNT(AUTO) 4.98 MIL/uL (4.20-5.40); RED CELL DISTRIBUTION WIDTH 18.8 % (11.6-13.7); WHITE BLOOD COUNT (AUTO) 8.6 K/uL (4.8-10.8)
[2019-06-05 14:10] LABS: ANION GAP 11.2 (8-16); CARBON DIOXIDE 34.2 mmol/L (21-32); POTASSIUM 3.4 mmol/L (3.5-5.1)
[2019-06-05 14:14] LABS: ALBUMIN 3.1 g/dL (3.4-5.0); TOTAL BILIRUBIN 0.5 mg/dL (0.0-1.0)
--- NOTE | 2019-06-05 14:40 | NUR ---
PT RESTING IN BED, NO NEW NEEDS AT THIS TIME. STATES CHEST PAIN IS 2/10 AT THIS TIME.
--- NOTE | 2019-06-05 15:54 | NUR ---
PT C/O HEADACHE & CHEST PAIN 09/03 RADIATING TO BACK AT THIS TIME, NOTIFIED DR. JONES
[2019-06-05] MEDS ORDERED: MORPHINE SULFATE 2 MG/ML SYR IVP SCH (16:15)
[2019-06-05] MEDS ORDERED: ACETAMINOPHEN EXTRA STRENGTH 500 MG TAB PO SCH (16:15)
--- NOTE | 2019-06-05 16:40 | NUR ---
RECEIVED PATIENT FROM ER VIA GURNEY. RECEIVED BEDSIDE REPORT FROM BELINDA ESCOBAR. PATIENT IS ALERT, AWAKE, AND ORIENTED X4. INTRODUCED SELF. PLANS OF CARE DISCUSSED. PATIENT WITH IV INTACT AND PATENT TO RIGHT HAND 22G. PT ON O2 @ 3L, O2 SAT 100%. PER REPORT PATIENT RECEIVED TYLENOL FOR HEADACHE AND MORPHINE FOR PAIN PRIOR TO TRANSFERRING TO UNIT. UPON TRANSFER TO UNIT PATIENT WAS ABLE TO AMBULATE TO THE RESTROOM WITH NO DISTRESS NOTED. SKIN INTACT. WILL CONTINUE TO MONITOR.
--- NOTE | 2019-06-05 16:43 | NUR ---
Patient will be admitted to care of DR. KING. Admited to TELEMETRY. Will go to room 115. Belongings list completed. Report to BELINDA AZAR.
[2019-06-05 16:45] VITALS: BP 165/100
--- NOTE | 2019-06-05 16:50 | NUR ---
PATIENT'S BP ELEVATED 165/100. WILL PAGE DR. KING.
--- NOTE | 2019-06-05 17:35 | NUR ---
NOTIFIED DR. KING IN REGARDS TO PATIENT'S ELEVATED BP 165/100. RECEIVED ORDER TO GIVE CLONIDINE 0.1MG PO Q6H PRN FOR SBP > 150.
[2019-06-05] MEDS ORDERED: LORazepam 2 MG/ML VIAL IVP PRN (17:50)
[2019-06-05] MEDS ORDERED: HYDROcodone/APAP 5/325 MG 1 TAB TAB PO PRN (17:50)
[2019-06-05] MEDS: cloNIDine 0.1 MG TAB PO PRN ×2 (18:01→23:41)
--- NOTE | 2019-06-05 19:05 | NUR ---
PATIENT IN STABLE CONDITION. WILL ENDORSE TO NIGHT NURSE FOR CONTINUITY OF CARE.
--- NOTE | 2019-06-05 19:06 | NUR ---
RECEIVED PT SITTING UP ON BED, NO SOB NOTED AT THIS TIME, ABLE TO SPEAK IN FULL SENTENCES, ON O2 AT 3L NC, PT COMPLAINING OF BACK PAIN, OFFERED NORCO BUT STATED IT'S NOT RELIEVING THE PAIN, WILL PAGE DR Dane KING, PLAN OF CARE DISCUSSED, SAFETY MEASURES IN PLACE, BED LOCKED AND IN LOWEST POSITION, CALL LIGHT WITHIN REACH.
[2019-06-05] MEDS: IPRATROPIUM 0.02% 0.5 MG/2.5 ML NEBU INH SCH (19:49)
[2019-06-05] MEDS: ALBUTEROL 0.083% 2.5 MG/3 ML NEBU INH PRN (19:49)
[2019-06-05 20:00] VITALS: BP 166/109
[2019-06-05] MEDS ORDERED: DEXTROSE 50% 50 ML SYR IVP PRN (20:00)
[2019-06-05] MEDS: MORPHINE SULFATE 2 MG/ML SYR IVP PRN ×2 (20:18→23:42)
[2019-06-05] MEDS: ONDANSETRON 4 MG/2 ML VIAL IVP PRN ×2 (20:22→23:42)
[2019-06-05] MEDS: CARVEDILOL 3.125 MG TAB PO SCH (20:30)
[2019-06-05] MEDS: GABAPENTIN 300 MG CAP PO SCH (20:30)
[2019-06-05] MEDS: methylPREDNISolone SS 40 MG/ML VIAL IVP SCH (20:30)
--- NOTE | 2019-06-05 20:30 | NUR ---
BLOOD SUGAR CHECKED WITH 158 RESULT, DUE MEDS ADMINISTERED WITH EDUCATION PROVIDED, BEDTIME SNACK GIVEN BUT PREFER ONLY FRUIT AND JUICE, ALL NEEDS ATTENDED.
[2019-06-05] MEDS: BLOOD GLUCOSE MONITORING 1 DEV DEV FS SCH (20:35)
[2019-06-05] MEDS: INSULIN LANTUS 100 UNITS/ML 10 ML VIAL SUBQ SCH (20:35)
[2019-06-05] MEDS: INSULIN LISPRO SLIDING SCALE 100 UNITS/ML VIAL SUBQ PRN (20:36)
[2019-06-05 22:18] LABS: CREATINE KINASE MB 0.5 ng/mL (0-3.6)
[2019-06-05 23:20] VITALS: BP 170/95
--- NOTE | 2019-06-05 23:27 | NUR ---
PT HAD A CHANGE OF MENTATION, PT SEEN WITH EYES CLOSED AND KEEP ON SPEAKING DA DA DA, OPEN EYES TO NAME AND SHAKING BUT WITH FLAT AFFECT, UNABLE TO FOLLOW COMMAND ,VITAL SIGNS TAKEN:SAT-98%, HR-103, BP-170/95, TEMP-102.4, RR-18, NO SOB NOTED, BLOOD SUGAR CHECKED WITH 204 RESULT, COOLING MEASURES INITIATED, FAMILY ARRIVED, DAUGHTER STATED THAT THEY ARE FACE TIMING ON THE PHONE AND SUDDENLY THE PT JUST DROPPED THE PHONE AND STOPPED RESPONDING, STILL NO CHANGE IN CONDITION, CALLED RAPID RESPONSE, AFTER SEVERAL MINUTES PT STARTED TO BE MORE AWAKE AND VERBALLY RESPONSIVE, DOESN'T REMEMBER WHAT HAPPENED, ABLE TO TAKE TYLENOL PO NOW, PT COMPLAINING OF BACK PAIN AND HEADACHE, WILL MEDICATE PRN, DR Shadi KING PAGED, AWAITNG CALL BACK, MONITORED CLOSELY.
[2019-06-06] MEDS ORDERED: FUROSEMIDE 40 MG/4 ML VIAL IVP SCH
--- NOTE | 2019-06-06 00:05 | NUR ---
PAGED DR Dane KING AND UPDATED ON PT'S CHANGE OF MENTATION AND ELEVATED BP, ORDERED CT OF HEAD AND TO GIVE 1 DOSE OF LASIX IVP, AND STATED NOT TO GIVE MORPHINE FOR THE MEANTIME, SANAM FROM RADIOLOGY MADE AWARE OF STAT ORDER, PT SLEEPING AT THIS TIME, PT'S FAMILY AT BEDSIDE MADE AWARE OF DOCTOR'S ORDERS, PT'S FAMILY REQUESTING DIAPER FOR PT BEFORE GIVING LASIX, MONITORED CLOSELY.
--- NOTE | 2019-06-06 01:18 | NUR ---
BP RECHECKED 124/73, HR-91, PT EASILY AROUSABLE BUT DROWSY, VERBALLY RESPONSIVE, LASIX IVP GIVEN ORDERED, I TOLD PT WE WILL PUT DIAPER BUT PT PREFER BEDSIDE COMMODE, FOR SAFETY REASON DUE TO WEAKNESS AND DROWSY, PT IS AMENABLE WITH DIAPER FOR NOW, MONITORED CLOSELY, FAMILY MEMBERS AT BEDSIDE.
--- NOTE | 2019-06-06 03:40 | NUR ---
PT SLEEPING, EASILY AROUSABLE, VITAL SIGNS STABLE, AFEBRILE, DENIES PAIN, NO SOB NOTED, MONITORED CLOSELY, DAUGHTER AT BEDSIDE.
[2019-06-06 04:00] VITALS: BP 123/65
--- NOTE | 2019-06-06 04:30 | NUR ---
PT AMBULATED TO BR WITH STANDBY ASSIST, VOIDED FREELY, BACK TO BED, NO SOB NOTED, PT WENT BACK TO SLEEP, MONITORED CLOSELY.
[2019-06-06] MEDS: INSULIN LISPRO SLIDING SCALE 100 UNITS/ML VIAL SUBQ PRN ×3 (05:53→21:17)
--- NOTE | 2019-06-06 05:55 | NUR ---
PT SLEEPING, EASILY AROUSABLE, BLOOD SUGAR CHECKED WITH 295 RESULT, COVERAGE GIVEN, NO C/O PAIN, NO SOB NOTED, CONTINUE TO O2 AT 3L NC, MONITORED CLOSELY, DAUGHTER AT BEDSIDE.
[2019-06-06] MEDS: BLOOD GLUCOSE MONITORING 1 DEV DEV FS SCH ×4 (06:37→21:03)
[2019-06-06 06:50] LABS: BASOPHILS # (AUTO) 0.1 K/uL (0.00-0.22); BASOPHILS % (AUTO) 1.3 % (0.0-2.0); EOSINOPHILS % (AUTO) 0.1 % (0.0-4.0); HEMATOCRIT 37.3 % (36-48); HEMOGLOBIN 11.7 g/dL (12.0-16.0); LYMPHOCYTES # (AUTO) 1.3 K/uL (2.5-16.5); LYMPHOCYTES % (AUTO) 12.9 % (20.5-51.1); MEAN CORPUSCULAR HEMOGLOBIN 23 pg (27-31); MEAN CORPUSCULAR HGB CONC 32 g/dL (33-37); MEAN CORPUSCULAR VOLUME 72.9 fL (80-94); MONOCYTES # (AUTO) 0.2 K/uL (0.8-1.0); MONOCYTES % (AUTO) 1.9 % (1.7-9.3); NEUTROPHILS # (AUTO) 8.5 K/uL (1.8-7.7); NEUTROPHILS % (AUTO) 83.8 % (42.2-75.2); PLATELET COUNT (AUTO) 254 K/uL (140-450); RED BLOOD CELL COUNT(AUTO) 5.12 MIL/uL (4.20-5.40)
[2019-06-06 07:10] LABS: ANION GAP 8.7 (8-16); CREATININE 1.3 mg/dL (0.6-1.3); POTASSIUM 4.7 mmol/L (3.5-5.1)
[2019-06-06 07:18] LABS: CREATINE KINASE MB 0.5 ng/mL (0-3.6)
--- NOTE | 2019-06-06 07:18 | NUR ---
SEEN PT AWAKE TALKING ON HER CELLPHONE, NO SIGNS OF DISTRESS, BEDSIDE REPORT GIVEN TO BELINDA ROBERTSON FOR CONTINUITY OF CARE.
--- NOTE | 2019-06-06 07:19 | NUR ---
RECEIVED REPORT FROM SUPPORT DBA NURSE AMEILA FOR CONTINUITY OF CARE. PT IN STABLE CONDITION. RESPIRATIONS EVEN AND UNLABORED. IV INTACT AND PATENT. SAFETY MEASURES IN PLACE. BED IN LOW POSITION. BED ALARM ON. CALL LIGHT AT BEDSIDE. WILL CONTINUE TO MONITOR.
[2019-06-06] MEDS: ALBUTEROL 0.083% 2.5 MG/3 ML NEBU INH PRN ×2 (07:29→13:06)
[2019-06-06] MEDS: IPRATROPIUM 0.02% 0.5 MG/2.5 ML NEBU INH SCH ×3 (07:30→19:00)
[2019-06-06 07:55] LABS: WHITE BLOOD COUNT (AUTO) 10.1 K/uL (4.8-10.8)
[2019-06-06 08:00] VITALS: BP 136/75
--- NOTE | 2019-06-06 08:23 | NUR ---
PATIENT HAS BEEN SCREENED AND CATEGORIZED MODERATE NUTRITION RISK. PATIENT WILL BE SEEN WITHIN 3-5 DAYS OF ADMISSION. 06/08/19 06/10/[address]
[2019-06-06] MEDS: FUROSEMIDE 40 MG/4 ML VIAL IVP SCH ×2 (09:29→17:05)
[2019-06-06] MEDS: GABAPENTIN 300 MG CAP PO SCH ×2 (09:30→21:02)
[2019-06-06] MEDS: methylPREDNISolone SS 40 MG/ML VIAL IVP SCH ×2 (09:30→21:01)
--- NOTE | 2019-06-06 09:30 | NUR ---
GAVE ORDERED DUE MEDICATIONS AT THIS TIME. PT TOLERATED WELL. BED IN LOW POSITION. CALL LIGHT AT BEDSIDE. WILL CONTINUE TO MONITOR.
[2019-06-06] MEDS: CARVEDILOL 3.125 MG TAB PO SCH ×2 (09:31→21:02)
--- NOTE | 2019-06-06 11:15 | NUR ---
PT SLEEP AT THIS TIME. RESPIRATIONS EVEN AND UNLABORED. BED IN LOW POSITION. CALL LIGHT AT BEDSIDE. WILL CONTINUE TO MONITOR.
[2019-06-06 12:00] VITALS: BP 144/84
--- NOTE | 2019-06-06 13:33 | NUR ---
PT TALKING WITH SON AT BEDSIDE. PT IN STABLE CONDITION. BED IN LOW POSITION. CALL LIGHT AT BEDSIDE. WILL CONTINUE TO MONITOR.
--- NOTE | 2019-06-06 14:00 | NUR ---
PT ASKING FOR ORANGE JUICE AND REGINA CRACKERS AT THIS TIME. EXPLAINED TO PT ABOUT DIABETIC DIET AT THIS TIME. PT VERBALIZED UNDERSTANDING. BED IN LOW POSITION. CALL LIGHT AT BEDSIDE. WILL CONTINUE TO MONITOR.
[2019-06-06 16:00] VITALS: BP 140/81
--- NOTE | 2019-06-06 17:50 | NUR ---
PT UPSET HAMBURGER FROM [employer] WAS COLD. PT CALLED DAUGHTER TO BRING OUTSIDE FOOD. PT IN STABLE CONDITION.
--- NOTE | 2019-06-06 19:15 | NUR ---
GAVE REPORT TO PROPOSAL MANAGER NURSE AMELIA FOR CONTINUITY OF CARE. PT IN STABLE CONDITION.
--- NOTE | 2019-06-06 19:16 | NUR ---
RECEIVED PT ON BED, AAOX4, ABLE TO MAKE NEEDS KNOWN, COMPLAINING OF MILD BACK PAIN BUT PT DOESN'T WANT TO TAKE ANY NARCOTIC AT THIS TIME, ON O2 AT 2L NC, NO SOB NOTED, PLAN OF CARE DISCUSSED, SAFETY MEASURES IN PLACE, MAINTAINED ON CONTACT PRECAUTION, CALL LIGHT WITHIN REACH.
--- NOTE | 2019-06-06 19:19 | NUR ---
PT REFUSED HHN TX. PT SAT 98% ON 2LNC. PT STATES SHE HAS NO SOB. WILL CONT TO MONITOR
[2019-06-06 20:00] VITALS: BP 153/94
[2019-06-06] MEDS: ACETAMINOPHEN 325 MG TAB PO PRN (20:24)
[2019-06-06] MEDS: guaiFENesin DM 200/20 MG-10 ML 10 ML UDC PO PRN (20:58)
--- NOTE | 2019-06-06 21:05 | NUR ---
BLOOD SUGAR CHECKED WITH 461 RESULT, PT ASYMPTOMATIC, PAGED DR KING, AWAITING CALL BACK, RISS AND DUE LANTUS 18 UNITS GIVEN, DUE MEDS ADMINISTERED, ALL NEEDS ATTENDED.
[2019-06-06] MEDS: INSULIN LANTUS 100 UNITS/ML 10 ML VIAL SUBQ SCH (21:17)
--- NOTE | 2019-06-06 23:40 | NUR ---
PT SLEEPING, EASILY AROUSABLE, VITAL SIGNS STABLE, DENIES PAIN, NO SOB NOTED, PT WENT BACK TO SLEEP, CONTINUE TO MONITOR CLOSELY.
[2019-06-07] VITALS: BP 142/90
[2019-06-07] MEDS: IPRATROPIUM 0.02% 0.5 MG/2.5 ML NEBU INH SCH ×4 (01:02→19:08)
--- NOTE | 2019-06-07 01:20 | NUR ---
BREATHING TX DONE BY RT [place], PT REQUESTING FOR REGINA CRACKERS AND APPLE JUICE, TOLERATED WELL, DENIES PAIN AT THIS TIME, NO SOB NOTED, MONITORED CLOSELY.
[2019-06-07 04:00] VITALS: BP 150/89
--- NOTE | 2019-06-07 04:00 | NUR ---
PT SLEEPING, EASILY AROUSABLE, VITAL SIGNS TAKEN, BP SLIGHTLY ELEVATED, DENIES ANY PAIN, NO SOB NOTED, MONITORED CLOSELY.
[2019-06-07] MEDS: ACETAMINOPHEN 325 MG TAB PO PRN ×3 (05:59→23:36)
[2019-06-07] MEDS: INSULIN LISPRO SLIDING SCALE 100 UNITS/ML VIAL SUBQ PRN ×2 (06:05→20:50)
--- NOTE | 2019-06-07 06:05 | NUR ---
PT EASILY AROUSABLE, AAOX4, BLOOD SUGAR CHECKED WITH 279 RESULT, COVERAGE GIVEN, COMPLAINING OF HEADACHE, MEDICATED PRN WITH TYLENOL, MONITORED CLOSELY.
[2019-06-07] MEDS: BLOOD GLUCOSE MONITORING 1 DEV DEV FS SCH ×4 (06:33→20:51)
[2019-06-07 06:35] LABS: BASOPHILS % (AUTO) 0.9 % (0.0-2.0); EOSINOPHILS % (AUTO) 0.1 % (0.0-4.0); HEMATOCRIT 39.5 % (36-48); HEMOGLOBIN 12.2 g/dL (12.0-16.0); LYMPHOCYTES # (AUTO) 1.4 K/uL (2.5-16.5); LYMPHOCYTES % (AUTO) 24.6 % (20.5-51.1); MEAN CORPUSCULAR HEMOGLOBIN 23 pg (27-31); MEAN CORPUSCULAR HGB CONC 31 g/dL (33-37); MEAN CORPUSCULAR VOLUME 72.8 fL (80-94); MONOCYTES # (AUTO) 0.2 K/uL (0.8-1.0); MONOCYTES % (AUTO) 4.1 % (1.7-9.3); NEUTROPHILS # (AUTO) 3.9 K/uL (1.8-7.7); NEUTROPHILS % (AUTO) 70.3 % (42.2-75.2); PLATELET COUNT (AUTO) 264 K/uL (140-450); RED BLOOD CELL COUNT(AUTO) 5.43 MIL/uL (4.20-5.40); RED CELL DISTRIBUTION WIDTH 19.1 % (11.6-13.7); WHITE BLOOD COUNT (AUTO) 5.6 K/uL (4.8-10.8)
[2019-06-07 07:14] LABS: MAGNESIUM 1.8 mg/dL (1.8-2.4)
--- NOTE | 2019-06-07 07:15 | NUR ---
PT SLEEPING, NO SIGNS OF DISTRESS, REPORT GIVEN TO BELINDA ROBERTSON FOR CONTINUITY OF CARE.
--- NOTE | 2019-06-07 07:16 | NUR ---
RECEIVED REPORT FROM SERVICE DEPARTMENT MANAGER NURSE AMELIA FOR CONTINUITY OF CARE. PT IN STABLE CONDITION. RESPIRATIONS EVEN AND UNLABORED. IV INTACT AND PATENT. SAFETY MEASURES IN PLACE. BED IN LOW POSITION. CALL LIGHT AT BEDSIDE. WILL CONTINUE TO MONITOR.
[2019-06-07 07:28] LABS: CARBON DIOXIDE 39.5 mmol/L (21-32); CREATININE 1.1 mg/dL (0.6-1.3); POTASSIUM 4.5 mmol/L (3.5-5.1)
[2019-06-07 08:00] VITALS: BP 115/82
[2019-06-07] MEDS: methylPREDNISolone SS 40 MG/ML VIAL IVP SCH ×2 (08:55→20:35)
[2019-06-07] MEDS: FUROSEMIDE 40 MG/4 ML VIAL IVP SCH ×2 (08:56→17:51)
[2019-06-07] MEDS: ONDANSETRON 4 MG/2 ML VIAL IVP PRN ×2 (08:56→20:41)
[2019-06-07] MEDS: GABAPENTIN 300 MG CAP PO SCH ×2 (08:57→20:36)
[2019-06-07] MEDS: CARVEDILOL 3.125 MG TAB PO SCH ×2 (08:57→20:35)
--- NOTE | 2019-06-07 09:13 | NUR ---
GAVE ORDERED DUE MEDICATIONS AT THIS TIME. PT TOLERATED WELL. BELEN YANEZ AT BEDSIDE FOR ASSESSMENT AT THIS TIME. PT IN STABLE CONDITION.
--- NOTE | 2019-06-07 10:40 | NUR ---
PT REQUEST TEMP CHECK AT THIS TIME. TEMP 99.0 PT IN STABLE CONDITION. WILL CONTINUE TO MONITOR.
[2019-06-07 12:00] VITALS: BP 132/89
--- NOTE | 2019-06-07 12:11 | NUR ---
DISCHARGE PLANNING: THIS IS A 54 Y/O FEMALE PATIENT FROM HOME, WHO CAME IN DUE TO SOB. PAST MEDICAL HISTORY INCLUDE ASTHMA, CHF, COPD, DIABETES AND HTN. INITIAL DIAGNOSIS OF CHF/COPD. CURRENT LABS INCLUDE WBC 5.6, H/H 12.2/39.5, BUN/CREA 137/4.5, BUN/CREA 20/1.1 AND GLU 298. MRSA NARES PENDING. CARDIO AND PULMO CONSULTS IN PLACE. ON SOLU MEDROL AND LASIX V. DC PLAN BACK TO HOME ONCE STABLE. Addendum: 06/08/19 at 1148 by Bhargavi Cannon CM DC PLANNING CONTINUE CURRENT MANAGEMENT AND TREATMENT AND WEANING FROM IV STEROIDS SOLU-MEDROL ,AWAITING FOR CARDIO AND PULMO CONSULT. CM TO FOLLOW
--- NOTE | 2019-06-07 14:22 | NUR ---
PT SLEEP AT THIS TIME. RESPIRATIONS EVEN AND UNLABORED. BED IN LOW POSITION. BED ALARM ON. CALL LIGHT AT BEDSIDE. WILL CONTINUE TO MONITOR.
[2019-06-07 16:00] VITALS: BP 164/95
--- NOTE | 2019-06-07 16:25 | NUR ---
PT TALKING ON PHONE AT THIS TIME. BED IN LOW POSITION. BED ALARM ON. CALL LIGHT AT BEDSIDE. WILL CONTINUE TO MONITOR.
--- NOTE | 2019-06-07 18:08 | NUR ---
PT C/PO HEADACHE. GAVE PRN MEDICATION AT THIS TIME. PT TOLERATED WELL. BED IN LOW POSITION. BED ALARM ON. CALL LIGHT AT BEDSIDE. WILL CONTINUE TO MONITOR.
--- NOTE | 2019-06-07 19:00 | NUR ---
RECEIVED REPORT FROM DAY SHIFT NURSE. PATIENT IS AWAKE, ALERT, AND COOPERATIVE. RESPIRATION EVEN UNLABORED ON 3L NC O2. NO DISTRESS NOTED. SKIN IS WARM AND DRY. IV PATENT AND INTACT. SALINE LOCKED. PLAN OF CARE WAS DISCUSSED. ALL SAFETY MEASURES IN PLACE. BED IS AT LOW POSITION. CALL LIGHT WITHIN REACH AND VERBALIZES ITS USE. WILL CONTINUE TO MONITOR.
--- NOTE | 2019-06-07 19:08 | NUR ---
GAVE REPORT TO SUPERVISOR INDUSTRIAL GARMENT NURSE AT THIS TIME. PT C/O PAIN AT THIS TIME. SUPERVISOR INDUSTRIAL GARMENT NURSE AWARE. PT IN STABLE CONDITION.
[2019-06-07 20:00] VITALS: BP 130/89
--- NOTE | 2019-06-07 20:00 | NUR ---
INITIAL ASSESSMENT DONE. VITALS WERE TAKEN. PATIENT IS IN STABLE CONDITION. WILL CONTINUE TO MONITOR.
--- NOTE | 2019-06-07 20:35 | NUR ---
ALL SCHEDULED MEDS WERE GIVEN PER ORDER. NO ASE NOTED. WILL CONTINUE TO MONITOR.
[2019-06-07] MEDS: guaiFENesin DM 200/20 MG-10 ML 10 ML UDC PO PRN (20:40)
--- NOTE | 2019-06-07 20:40 | NUR ---
PATIENT COMPLAINED OF COUGH. PRN COUGH MEDICINE IS GIVEN PER ORDER. PATIENT WANT ZOFRAN BEFORE GIVING SOLU-MEDROL. PER PATIENT SHE GETS NAUSEOUS WHENEVER SHE GETS SOLUMEDROL. WILL CONTINUE TO MONITOR.
[2019-06-07] MEDS: INSULIN LANTUS 100 UNITS/ML 10 ML VIAL SUBQ SCH (20:49)
--- NOTE | 2019-06-07 22:47 | NUR ---
ALL SCHEDULED MEDS WERE GIVEN PER ORDER. NO ASE NOTED. WILL CONTINUE TO MONITOR. Addendum: 06/07/19 at 2248 by Candelaria Izquierdo RN WRONG TIME
--- NOTE | 2019-06-07 22:48 | NUR ---
CHECKED PATIENT. PATIENT WATCHING TV. RESPIRATION EVEN UNLABORED ON 3L NC O2. NO DISTRESS NOTED. WILL CONTINUE TO MONITOR.
--- NOTE | 2019-06-07 23:36 | NUR ---
ROUNDS MADE. PATIENT VERBALIZED HEADACHE 06/03. TYLENOL GIVEN ORDERED. WILL CONTINUE TO MONITOR.
[2019-06-08] VITALS: BP 159/100
--- NOTE | 2019-06-08 | NUR ---
VITALS WERE TAKEN. PATIENT IS IN STABLE CONDITION. NO DISTRESS NOTED. WILL CONTINUE TO MONITOR.
[2019-06-08] MEDS: IPRATROPIUM 0.02% 0.5 MG/2.5 ML NEBU INH SCH ×3 (01:00→13:16)
--- NOTE | 2019-06-08 01:33 | NUR ---
no hhn tx given. pt refused tx and said to come back in the morning.saturations were good. pt remains on o2. will cont to monitor
--- NOTE | 2019-06-08 02:19 | NUR ---
ROUNDS MADE. PATIENT LYING IN BED SLEEPING. NO SIGNS OF DISTRESS NOTED. SAFETY MEASURES IN PLACE. BED IN LOWEST POSITION, SIDE RAILS RAISED, CALL LIGHT WITHIN REACH. KEPT COMFORTABLE. WILL CONTINUE TO MONITOR.
[2019-06-08 04:00] VITALS: BP 168/107
[2019-06-08] MEDS: cloNIDine 0.1 MG TAB PO PRN (04:18)
--- NOTE | 2019-06-08 04:18 | NUR ---
ROUNDS DONE. VITAL SIGNS TAKEN. BP 168/107. PRN CLONDINE GIVEN ORDERED. PATIENT DENIES ANY DISTRESS. SAFETY MEASURES IN PLACE. WILL CONTINUE TO MONITOR.
[2019-06-08] MEDS: INSULIN LISPRO SLIDING SCALE 100 UNITS/ML VIAL SUBQ PRN ×2 (06:09→12:25)
[2019-06-08 06:23] LABS: BASOPHILS # (AUTO) 0.1 K/uL (0.00-0.22); BASOPHILS % (AUTO) 0.8 % (0.0-2.0); EOSINOPHILS % (AUTO) 0.2 % (0.0-4.0); HEMATOCRIT 40.3 % (36-48); HEMOGLOBIN 12.7 g/dL (12.0-16.0); LYMPHOCYTES # (AUTO) 0.8 K/uL (2.5-16.5); LYMPHOCYTES % (AUTO) 9.1 % (20.5-51.1); MEAN CORPUSCULAR HEMOGLOBIN 23 pg (27-31); MEAN CORPUSCULAR HGB CONC 31 g/dL (33-37); MEAN CORPUSCULAR VOLUME 72.9 fL (80-94); MONOCYTES # (AUTO) 0.7 K/uL (0.8-1.0); MONOCYTES % (AUTO) 7.2 % (1.7-9.3); NEUTROPHILS # (AUTO) 7.6 K/uL (1.8-7.7); NEUTROPHILS % (AUTO) 82.7 % (42.2-75.2); PLATELET COUNT (AUTO) 263 K/uL (140-450); RED BLOOD CELL COUNT(AUTO) 5.53 MIL/uL (4.20-5.40); RED CELL DISTRIBUTION WIDTH 18.9 % (11.6-13.7); WHITE BLOOD COUNT (AUTO) 9.2 K/uL (4.8-10.8)
[2019-06-08] MEDS: BLOOD GLUCOSE MONITORING 1 DEV DEV FS SCH ×2 (06:32→11:17)
[2019-06-08 06:45] LABS: ANION GAP 7.6 (8-16); CARBON DIOXIDE 39.6 mmol/L (21-32); CREATININE 1.1 mg/dL (0.6-1.3); POTASSIUM 4.2 mmol/L (3.5-5.1)
--- NOTE | 2019-06-08 07:13 | NUR ---
ENDORSED TO DAY SHIFT NURSE. PATIENT IN STABLE CONDITION. NO PAIN NOTED AT THIS TIME. SAFETY MEASURES IN PLACE. KEPT COMFORTABLE.
--- NOTE | 2019-06-08 07:18 | NUR ---
RECEIVED PATIENT FROM MAIL CARRIER TECHNICIAN NURSE FOR CONTINUITY OF CARE. PATIENT IS SLEEPING AT THIS TIME. NO SIGNS OF DISTRESS NOTED. RESPIRATIONS EVEN AND UNLABORED, ON 2L O2 VIA NC. LUNG SOUNDS CLEAR. VISIBLE CHEST RISE NOTED. ON TELE MONITORING. SKIN WARM, DRY, AND INTACT. IV IN THE RIGHT HAND GAUGE 22, SALINE LOCK. FLUSHED WELL. PATIENT IS INCONTINENT. PATIENT IS ON CARDIAC DIET. STANDARD ISOLATION. UNIVERSAL FALL PRECAUTIONS. BED IN LOW POSITION. CALL LIGHT IS WITHIN REACH. WILL CONTINUE TO MONITOR.
[2019-06-08 08:00] VITALS: BP 156/98
[2019-06-08] MEDS: FUROSEMIDE 40 MG/4 ML VIAL IVP SCH (08:07)
[2019-06-08] MEDS: ONDANSETRON 4 MG/2 ML VIAL IVP PRN (08:08)
[2019-06-08] MEDS: methylPREDNISolone SS 40 MG/ML VIAL IVP SCH (08:08)
[2019-06-08] MEDS: CARVEDILOL 3.125 MG TAB PO SCH (08:08)
[2019-06-08] MEDS: GABAPENTIN 300 MG CAP PO SCH (08:08)
--- NOTE | 2019-06-08 08:10 | NUR ---
GIVEN MORNING MEDICATIONS PO. GIVEN ZOFRAN PRIOR TO SOLUMEDROL VIA IVP. EXPLAINED MEDICATIONS AND SIDE EFFECTS. PATIENT VERBALIZED UNDERSTANDING. BED IN LOW POSITION. CALL LIGHT IS WITHIN REACH. WILL CONTINUE TO MONITOR.
--- NOTE | 2019-06-08 10:07 | NUR ---
CHANGED NASAL CANNULA PER PATIENT'S REQUEST
--- NOTE | 2019-06-08 10:25 | NUR ---
TRYING TO WEAN OFF PATIENT FROM OXYGEN SUPPLEMENTATION 2L O2 VIA NC. EXPLAINED THAT IF SHE STARTS FEELING SOB, TO CALL ME SO I CAN PUT THE OXYGEN BACK. WILL RECHECK PATIENT'S O2SAT
[2019-06-08 10:28] VITALS: BP 156/98
--- NOTE | 2019-06-08 10:45 | NUR ---
PATIENT DENIES SOB. DENIES PAIN. BED IN LOW POSITION. CALL LIGHT IS WITHIN REACH. WILL CONTINUE TO MONITOR
--- NOTE | 2019-06-08 11:17 | NUR ---
BLOOD GLUCOSE CHECK: 183. WILL GIVE INSULIN COVERAGE
--- NOTE | 2019-06-08 11:32 | NUR ---
PATIENT'S O2SAT IS 83. PUT HER BACK TO 2L O2 VIA NC.
[2019-06-08 12:00] VITALS: BP 107/57
[2019-06-08] MEDS ORDERED: DEXT5SYR3 PO (14:35)
--- NOTE | 2019-06-08 15:24 | NUR ---
GIVEN DISCHARGE INSTRUCTIONS: BRING PRESCRIPTION GUAIFENESIN TO THE PREFERRED PHARMACY. EXPLAINED THAT IF HER SYMPTOMS GET WORSE, CALL 911 OR GO TO EMERGENCY DEPARTMENT. FOLLOW UP WITH PCP. PATIENT VERBALIZE UNDERSTANDING. PATIENT SIGNED DISCHARGE PAPERWORK. NO FURTHER QUESTIONS
--- NOTE | 2019-06-08 15:26 | NUR ---
PATIENT IS UP TO DATE WITH PNA AND FLU VACCINES.
--- NOTE | 2019-06-08 15:30 | NUR ---
DISCONTINUED IV AND REMOVED ID BAND.
--- NOTE | 2019-06-08 15:33 | NUR ---
DISCHARGE PATIENT VIA WHEELCHAIR AND ACCOMPANIED BY JACQUELYN CRUZ. PATIENT DENIES SOB. NO PAIN. PATIENT IS IN STABLE CONDITION.
== END 2019-06-08 15:35 | disposition home or self-care (01) | DRG 194 ==
LOC: MED 12:30 → MTU 15:16
PROVIDERS: ADMIT Preventive Medicine Preventive Medicine/Occupational Environmental Medicine; ATTEND Preventive Medicine Preventive Medicine/Occupational Environmental Medicine
DX: I13.0 Hypertensive heart and chronic kidney disease with heart failure and stage 1 through stage 4 chronic kidney disease, or unspecified chronic kidney disease (principal); J96.00 Acute respiratory failure, unspecified whether with hypoxia or hypercapnia; J44.1 Chronic obstructive pulmonary disease with (acute) exacerbation; I50.43 Acute on chronic combined systolic (congestive) and diastolic (congestive) heart failure; E11.22 Type 2 diabetes mellitus with diabetic chronic kidney disease; N18.9 Chronic kidney disease, unspecified; E11.65 Type 2 diabetes mellitus with hyperglycemia; E87.5 Hyperkalemia; E88.09 Other disorders of plasma-protein metabolism, not elsewhere classified; I25.10 Atherosclerotic heart disease of native coronary artery without angina pectoris; Z98.51 Tubal ligation status; Z95.810 Presence of automatic (implantable) cardiac defibrillator; D64.9 Anemia, unspecified; R79.89 Other specified abnormal findings of blood chemistry
CPT/HCPCS: 36415; 70450; 71045; 80048; 80053; 82550; 82553; 82948; 83735; 83880; 84100; 84484; 85025; 87081; 93005; 94640; 96374; 96375; 96376; 99285; J1815; J1940; J2270; J2405; J2920; J7612; J7613; J7644; Q0092

== ENCOUNTER 2019-07-30 22:59 | Inpatient (IN) | payer MEDICAID ==
[~2019-07-30] VITALS: Ht 170.2 cm; Wt 116.6 kg
--- NOTE | 2019-07-30 22:53 | NUR ---
REASSESSED BP ON PT. BP WAS 139/93. PT RESTING IN BED NO SIGNS OF DISTRESS NOTED. TELE MONITOR ATTACHED AND CALL LIGHT WITHIN REACH
[~2019-07-30 22:59] MED LIST changes: +DEXT5SYR3 PO; -PRED10TA5 PO; -PRED20TA5 PO
[2019-07-30 23:12] VITALS: BP 169/111
--- NOTE | 2019-07-30 23:12 | NUR ---
54/F presents to ED, c/o SOB, x2-3 days, exacerbated with activity/laying flat. Pt reports albuterol inh and home O2 2L not relieving SOB. Reports L sided chest pressure radiating to L neck and L arm, x2-3 days. Pt denies fever/chills, cough/congestion, n/v. Pt awake and alert, skin normal color warm and dry, Spo2 96-99% on RA, RR 20-24 even and mildly labored. Lung sounds clear BL. S1S2 present, ST@108 on monitor. BLE edema noted +2 Hx CHF, COPD, asthma, HTN, DM, sciatica, tubal ligation
--- NOTE | 2019-07-30 23:17 | NUR ---
pt walk in to ED c/o CP and SOB. Bedside triage in bed 10 done. Pt is aaax4, conversant. EKG on process. Pt care to Treva TREVINO. Dr Anglin at the bedside. Covid precautions initiated.
--- NOTE | 2019-07-30 23:20 | NUR ---
DR. BOONE AT BEDSIDE EVALUATING PT.
[2019-07-30] MEDS ORDERED: ONDANSETRON 4 MG/2 ML VIAL IVP ONE (23:30)
[2019-07-30] MEDS ORDERED: FUROSEMIDE 40 MG/4 ML VIAL IVP ONE (23:30)
[2019-07-30] MEDS ORDERED: MORPHINE SULFATE 4 MG/ML SYR IVP ONE (23:30)
[2019-07-30 23:39] LABS: BASOPHILS # (AUTO) 0.1 K/uL (0.00-0.22); BASOPHILS % (AUTO) 2.3 % (0.0-2.0); EOSINOPHILS # (AUTO) 0.1 K/uL (0-0.4); EOSINOPHILS % (AUTO) 1.9 % (0.0-4.0); HEMATOCRIT 35.4 % (36-48); HEMOGLOBIN 11.1 g/dL (12.0-16.0); LYMPHOCYTES # (AUTO) 2.3 K/uL (2.5-16.5); LYMPHOCYTES % (AUTO) 42.5 % (20.5-51.1); MEAN CORPUSCULAR HEMOGLOBIN 22 pg (27-31); MEAN CORPUSCULAR HGB CONC 31 g/dL (33-37); MEAN CORPUSCULAR VOLUME 71.6 fL (80-94); MONOCYTES # (AUTO) 0.2 K/uL (0.8-1.0); MONOCYTES % (AUTO) 3.8 % (1.7-9.3); NEUTROPHILS # (AUTO) 2.7 K/uL (1.8-7.7); NEUTROPHILS % (AUTO) 49.5 % (42.2-75.2); PLATELET COUNT (AUTO) 252 K/uL (140-450); RED BLOOD CELL COUNT(AUTO) 4.94 MIL/uL (4.20-5.40); WHITE BLOOD COUNT (AUTO) 5.4 K/uL (4.8-10.8)
--- NOTE | 2019-07-30 23:50 | NUR ---
XRAY AT BEDSIDE WEARING PROPER PPE
[2019-07-30 23:52] LABS: ANION GAP 9.7 (8-16); CARBON DIOXIDE 31.7 mmol/L (21-32); CREATININE 1.5 mg/dL (0.6-1.3); POTASSIUM 4.4 mmol/L (3.5-5.1); TOTAL BILIRUBIN 0.4 mg/dL (0.0-1.0)
--- NOTE | 2019-07-30 23:57 | NUR ---
INFORMED DR. BOONE BP IS 158/110. NO NEW ORDERS AT THIS TIME.
[2019-07-30 23:59] LABS: RED CELL DISTRIBUTION WIDTH 20.8 % (11.6-13.7)
--- NOTE | 2019-07-31 00:17 | NUR ---
RESTING IN BED, RR EVEN AND UNLABORED. BED IN LOWEST POSITION, SIDE RAIL UP X2. WILL CONTINUE TO MONITOR.
[2019-07-31] MEDS ORDERED: HUM SUBQ (01:16)
[2019-07-31] MEDS ORDERED: MORPHINE SULFATE 4 MG/ML SYR IVP ONE (01:30)
--- NOTE | 2019-07-31 01:30 | NUR ---
PT RESTING IN BED, GAVE ICE CHIPS, BED LOW AND LOCKED, 2 SIDERAILS UP, VSS, WILL CONTINUE TO MONITOR.
--- NOTE | 2019-07-31 01:35 | NUR ---
INFORMED PT C/O PAIN. HE STATED HE WILL PUT IN A NEW ORDER FOR PAIN MEDICATION .
[2019-07-31 01:55] VITALS: BP 160/114
--- NOTE | 2019-07-31 01:55 | NUR ---
RECEIVED PATIENT FROM ED VIA GURNEY. PATIENT WAS ESCORTED BY ED NURSE. OBTAINED BEDSIDE REPORT FROM NURSE VEGA FOR CONTINUITY OF CARE. PATIENT AWAKE AND ALERT X4. NO SIGNS OF DISTRESS NOTED. RESPIRATIONS EVEN AND UNLABORED ON RA. TELE MONITOR ATTACHED, SAFETY MEASURES IN PLACE AND CALL LIGHT WITHIN REACH. PT ORIENTED TO ROOM AND CALL LIGHT. PT COMPLAINED OF 7/10 PAIN WAS MEDICATED IN ED AT 0139. RECEIVED ON REPORT PATIENT HAD ELEVATED BP 163/114 BUT ED DOCTOR WAS AWARE AND DID NOT GIVE ORDERS FOR MEDICATION. ON ARRIVAL TO UNIT PT BP IS 160/114.
--- NOTE | 2019-07-31 01:55 | NUR ---
Patient will be admitted to care of . Admited to MST. Will go to room 105 B. Belongings list completed. Report GIVEN TO BELINDA ROSS, WHO ASSUMED CARE OF PT AT THIS TIME.
--- NOTE | 2019-07-31 03:18 | NUR ---
ADMITTING MD DR. BELEN KING WAS PAGED TO OBTAIN ORDERS FOR THE NEW ADMISSION. WAITING ON RESPONSE FROM MD. PT IS RESTING IN BED NO SIGNS OF DISTRESS NOTED. TELE MONITOR ATTACHED AND CALL LIGHT WITHIN REACH
[2019-07-31 04:00] VITALS: BP 162/110
[2019-07-31] MEDS ORDERED: cloNIDine 0.1 MG TAB PO PRN (04:55)
[2019-07-31] MEDS ORDERED: ACETAMINOPHEN 325 MG TAB PO PRN ×3 (05:15→13:24)
[2019-07-31] MEDS ORDERED: DEXTROSE 50% 50 ML SYR IVP PRN ×2 (05:15→13:10)
[2019-07-31] MEDS ORDERED: ONDANSETRON 4 MG/2 ML VIAL IVP PRN ×2 (05:15→13:10)
--- NOTE | 2019-07-31 05:15 | NUR ---
RECEIVED CALL BACK FROM DR. Dane KING. ORDERS READ BACK AND INPUT INTO THE SYSTEM PER MD REQUEST
--- NOTE | 2019-07-31 05:30 | NUR ---
CALLED MD TO OBTAIN PRN MEDICATION FOR PAIN AND NAUSEA FOR PATIENT
--- NOTE | 2019-07-31 06:32 | NUR ---
ADMINISTERED PRN CLONODINE FOR ELEVATED BP. REASSESS DUE AT 0802. WILL ENDORSE REASSESSMENT TO DAYSOKFT NURSE
[2019-07-31] MEDS: BLOOD GLUCOSE MONITORING 1 DEV DEV FS SCH ×4 (06:42→20:47)
[2019-07-31] MEDS: INSULIN LISPRO SLIDING SCALE 100 UNITS/ML VIAL SUBQ PRN ×3 (06:45→20:30)
--- NOTE | 2019-07-31 07:15 | NUR ---
ENDORSED PATIENT TO DAYSHIFT NURSE AT BEDSIDE FOR CONTINUITY OF CARE. PT IN STABLE CONDITION AWAKE AND ALERT IN BED NO SIGNS OF DISTRESS NOTED
--- NOTE | 2019-07-31 07:16 | NUR ---
RECEIVED REPORT FROM ACCOUNT RESOLUTION SPECIALIST. AOX4. NO SIGNS OF DISTRESS NOTED. NO C/O PAIN, RESPIRATIONS EVEN AND UNLABORED. ON RA. TELE MONITOR ATTACHED, SAFETY MEASURES IN PLACE AND CALL LIGHT WITHIN REACH. PLAN OF CARE DISCUSSED. PT VERBALIZED UNDERSTANDING. WILL CONT TO MONITOR
[2019-07-31 08:00] VITALS: BP 150/92
[2019-07-31] MEDS: CARVEDILOL 3.125 MG TAB PO SCH ×2 (08:18→20:33)
[2019-07-31] MEDS: GABAPENTIN 300 MG CAP PO SCH ×2 (08:18→20:33)
--- NOTE | 2019-07-31 08:45 | NUR ---
UE MORNING MEDS GIVEN. TOLERATED WELL
--- NOTE | 2019-07-31 09:00 | NUR ---
PATIENT HAS BEEN SCREENED AND CATEGORIZED HIGH NUTRITION RISK. PATIENT WILL BE SEEN WITHIN 1-2 DAYS OF ADMISSION. 07/31/19-08/01/[address]
[2019-07-31] MEDS: FUROSEMIDE 40 MG/4 ML VIAL IVP SCH (09:19)
--- NOTE | 2019-07-31 10:00 | NUR ---
PT IN BED TALKING TO FAMILY ON PHONE. ALL NEEDS MET AT THIS TIME
[2019-07-31 12:00] VITALS: BP 155/92
--- NOTE | 2019-07-31 12:10 | NUR ---
BLOOD SUGAR 244. COVERAGE GIVEN
[2019-07-31] MEDS ORDERED: LORazepam 2 MG/ML VIAL IVP PRN (13:10)
[2019-07-31] MEDS ORDERED: ALBUTEROL 0.083% 2.5 MG/3 ML NEBU INH PRN (13:10)
--- NOTE | 2019-07-31 13:13 | NUR ---
07/31/19 RD INITIAL ASSESSMENT COMPLETED PLEASE REFER TO NUTRITION ASSESSMENT UNDER CARE ACTIVITY FOR ESTIMATED NUTRITIONAL NEEDS. 1. CONTINUE CARDIAC AND CCHO 60GM DIET TOLERATED 2. RD TO GIVE NUTRITION EDUCATION ON CARDIAC DIET 3. RD TO FOLLOW-UP 3-5 DAYS, MODERATE RISK NKECHI TODD, RD
--- NOTE | 2019-07-31 14:10 | NUR ---
PT IN BED TALKING TO FAMILY ON PHONE. NO COMPLAINTS AT THIS TIME
--- NOTE | 2019-07-31 14:27 | NUR ---
DISCHARGE PLANNING: THIS IS A 54 Y/O FEMALE PATIENT FROM HOME, WHO CAME IN DUE TO SOB. PAST MEDICAL HISTORY INCLUDE HTN, COPD, HYPERTENSIVE CARDIOVASCULAR DISEASE, DM II, DYSLIPIDEMIA AND OBESITY. INITIAL DIAGNOSIS OF CONGESTIVE HEART FAILURE. CURRENT LABS INCLUDE WBC 5.4, H/H 11.1/35.4, NA/K 139/4.4, BUN/CREA 25/1.5 AND TROP 0.212 AND 0.233. BNP 2600. ON LASIX IV. CARDIO CONSULT IN PLACE. CXR ON ADMISSION SHOWED LEFT MID LUNG ATELECTASIS AND STABLE CARDIOMEGALY. DC PLAN BACK TO HOME ONCE STABLE. Addendum: 08/01/19 at 0977 by Tanya Sharif CM RECEIVED A CALL FROM JOSE COORDINATOR FROM [facility], REQUESTING UPDATES ON THE PATIENT'S CONDITION. UPDATES PROVIDED. SHE ALSO REQUESTED TO SEND CLINICALS TO [phone] FOR THEM TO REVIEW. CLINICALS SENT. SHE PROVIDED ME WITH HER DIRECT NUMBER [phone]. DARYA ROSE IS THE ASSIGNED CM FOR TODAY. PROVIDED HER WITH MY CONTACT NUMBER IF MORE INFO IS NEEDED. Addendum: 08/02/19 at 1543 by Tanya Sharif CM FOR DC TO HOME TODAY.
[2019-07-31 15:46] LABS: CREATINE KINASE MB 1.1 ng/mL (0-3.6)
[2019-07-31 16:00] VITALS: BP 124/84
--- NOTE | 2019-07-31 16:45 | NUR ---
BLOOD SUGAR 152. COVERAGE GIVEN.
[2019-07-31] MEDS: INSULIN LISPRO 100 UNITS/ML VIAL SUBQ SCH (17:00)
--- NOTE | 2019-07-31 19:05 | NUR ---
ENDORSED TO COMMISSARY PRODUCTION SUPERVISOR NURSE FOR CONTINUITY OF CARE. IN STABLE CONDITION
--- NOTE | 2019-07-31 19:06 | NUR ---
RECEIVED BEDSIDE REPORT FROM DAYSUTFT NURSE CHARLIE FOR CONTINUITY OF CARE. PATIENT AWAKE AND ALERT NO SIGNS OF DISTRESS NOTED RESPIRATIONS EVEN AND UNLABORED ON RA. IV SITE PATENT. TELE MONITOR ATTACHED BED IN LOW POSITION AND CALL LIGHT WITHIN REACH
[2019-07-31 20:00] VITALS: BP 102/81
[2019-07-31] MEDS: INSULIN LANTUS 100 UNITS/ML 10 ML VIAL SUBQ SCH (20:14)
--- NOTE | 2019-07-31 20:26 | NUR ---
ADMINISTERED 2100 MEDICATIONS TO PATIENT. PT REQUESTED SOMETHING STRONGER THAN TYLENOL FOR PAIN. ADMINISTERED PRN NORCO FOR A STATE PAIN LEVEL OF 6/10. NO SIGNS OF DISTRESS NOTED. ALSO PROVIDED EVENING SNACK FOR INSULIN AND PROVIDED 2 UNITS OF INSULIN COVERAGE. PT TOLERATED WELL NO SIGNS OF DISTRESS NOTED, CALL LIGHT WITHIN REACH AND TELE MONITOR ATTACHED. WILL CONTINUE TO MONITOR
[2019-07-31] MEDS: HYDROcodone/APAP 5/325 MG 1 TAB TAB PO PRN (20:33)
--- NOTE | 2019-07-31 22:53 | NUR ---
REASSESSED PT BP. BP IS 139/93. PT RESTING IN BED NO SIGNS OF DISTRESS NOTED. RESPIRATIONS EVEN AND UNLABORED. TELE MONITOR ATTACHED AND CALL LIGHT WITHIN REACH
[2019-08-01] VITALS: BP 127/98
--- NOTE | 2019-08-01 00:41 | NUR ---
ROUNDING PT RESTING NO SIGNS OF DISTRESS NOTED. RESPIRATIONS EVEN AND UNLABORED. BED IN LOW POSITION TELE MONITOR ATTACHED AND CALL LIGHT WITHIN REACH. WILL CONTNUE TO MONITOR
[2019-08-01] MEDS: HYDROcodone/APAP 5/325 MG 1 TAB TAB PO PRN ×2 (02:29→07:59)
--- NOTE | 2019-08-01 02:29 | NUR ---
ADMINISTERED PRN NORCO FOR PATIENTS COMPLAINT OF 6/10 PAIN DESCRIBED THROBBING HEAD PAIN. PT TOLERATED WELL. RESPIRATIONS 20, BP:129/98 HR 79 PRIOR TO ADMINISTERING MEDICATION
[2019-08-01 04:00] VITALS: BP 130/71
--- NOTE | 2019-08-01 04:20 | NUR ---
OBTAINED MORNING VITALS FROM PATIENT. PT TOLERATED WELL NO SIGNS OF DISTRESS NOTED. TELE MONITOR ATTACHED CALL LIGHT WITHIN REACH
[2019-08-01] MEDS: BLOOD GLUCOSE MONITORING 1 DEV DEV FS SCH ×4 (06:00→20:05)
--- NOTE | 2019-08-01 06:00 | NUR ---
OBTAINED A MORNING BS OF 122. NO COVERAGE REQUIRED. PT TOLERATED WELL. PT IS AWAKE AND ALERT NO SIGNS OF DISTRESS NOTED. TELE MONITOR ATTACHED AND CALL LIGHT WITHIN REACH
--- NOTE | 2019-08-01 07:15 | NUR ---
ENDORSED PATIENT TO DAYSHIFT NURSE FOR CONTINUITY OF CARE. PATIENT AWAKE AND ALERT IN BED NO SIGNS OF DISTRESS NOTED. TELE MONITOR ATTACHED AND CALL LIGHT WITHIN REACH
--- NOTE | 2019-08-01 07:16 | NUR ---
RECEIVED REPORT FROM FIBERGLASS BOAT FINISHER NURSE FOR CONTINUITY OF CARE. PT IS AA&OX4, SITTING UP IN BED. L HAND 2OG IV IS PATENT AND INTACT, SALINE LOCK. RESPIRATIONS ARE EVEN AND UNLABORED, BREATHING TO NC @ 2LPM. REVIEWED PLAN OF CARE. TELE MONITOR ATTACHED. SAFETY MEASURES IN PLACE, CALL LIGHT WITHIN REACH, BED IN LOW POSITION. NO DISTRESS NOTED. WILL CONTINUE TO MONITOR.
[2019-08-01 07:21] LABS: BASOPHILS # (AUTO) 0.1 K/uL (0.00-0.22); BASOPHILS % (AUTO) 1.6 % (0.0-2.0); EOSINOPHILS # (AUTO) 0.1 K/uL (0-0.4); EOSINOPHILS % (AUTO) 3.1 % (0.0-4.0); HEMATOCRIT 34.6 % (36-48); HEMOGLOBIN 10.6 g/dL (12.0-16.0); LYMPHOCYTES # (AUTO) 2.5 K/uL (2.5-16.5); LYMPHOCYTES % (AUTO) 53.6 % (20.5-51.1); MEAN CORPUSCULAR HEMOGLOBIN 22 pg (27-31); MEAN CORPUSCULAR HGB CONC 31 g/dL (33-37); MONOCYTES # (AUTO) 0.4 K/uL (0.8-1.0); MONOCYTES % (AUTO) 8.6 % (1.7-9.3); NEUTROPHILS # (AUTO) 1.6 K/uL (1.8-7.7); NEUTROPHILS % (AUTO) 33.1 % (42.2-75.2); PLATELET COUNT (AUTO) 217 K/uL (140-450); RED BLOOD CELL COUNT(AUTO) 4.81 MIL/uL (4.20-5.40); RED CELL DISTRIBUTION WIDTH 20.2 % (11.6-13.7); WHITE BLOOD COUNT (AUTO) 4.8 K/uL (4.8-10.8)
[2019-08-01 07:54] LABS: ANION GAP 7.8 (8-16); CARBON DIOXIDE 33.4 mmol/L (21-32); CREATININE 1.6 mg/dL (0.6-1.3); POTASSIUM 4.2 mmol/L (3.5-5.1)
--- NOTE | 2019-08-01 07:59 | NUR ---
PT COMPLAINED OF 6/10 RT SIDED HEAD AND NECK PAIN. PRN NORCO GIVEN.WILL REASSESS. SAFETY MEASURES IN PLACE, CALL LIGHT WITHIN REACH.
[2019-08-01 08:00] VITALS: BP 134/94
--- NOTE | 2019-08-01 08:59 | NUR ---
RECEIVED PHONE CALL FROM CYNTHIA FROM THE LAB , REPORTING A TROPONIN OF O.171. TROPONIN IS TRENDING DOWN; TROPONIN ON 07/31/2019: 0.233 AND 0.217.
[2019-08-01] MEDS: FUROSEMIDE 40 MG/4 ML VIAL IVP SCH (09:21)
[2019-08-01] MEDS: GABAPENTIN 300 MG CAP PO SCH ×2 (09:21→21:07)
[2019-08-01] MEDS: CARVEDILOL 3.125 MG TAB PO SCH ×2 (09:21→21:06)
[2019-08-01 09:33] LABS: MAGNESIUM 1.6 mg/dL (1.8-2.4); PHOSPHORUS 5.1 mg/dL (2.5-4.9)
[2019-08-01] MEDS: INSULIN LISPRO 100 UNITS/ML VIAL SUBQ SCH ×3 (09:36→17:35)
--- NOTE | 2019-08-01 09:39 | NUR ---
SCHEDULED MEDICATIONS GIVEN. MEDICATION EDUCATION PROVIDED, WITH PT VERBALIZING UNDERSTANDING. PT TOLERATED PO MEDS WELL. BGL: 257. BP: 134/94. L HAND IV WAS FLUSHED, BEFORE, AND AFTER, ADMINISTRATION OF IVP LASIX. NO DISTRESS NOTED. SAFETY MEASURES IN PLACE. WILL CONTINUE TO MONITOR.
--- NOTE | 2019-08-01 10:37 | NUR ---
PT COMPLAINS OF 7/10 RT SIDED HEAD PAIN, WHICH IS RADIATING DOWN HER NECK. DR KING CALLED. PER DR KING, PO IBUPROFEN SHOULD BE GIVEN; IBUPROFEN 600 MG PO TID.
--- NOTE | 2019-08-01 10:54 | NUR ---
PT ALLERGIC TO IBUPROFEN, WILL COORDINATE WITH MD. PT IS IN STABLE CONDITION.
--- NOTE | 2019-08-01 11:04 | NUR ---
MANAGER MEDICAL AFFAIRS NOTE: Basic Screen: Yes High Risk DC Screen Rosalie: NAYA SHELL [place] Relationship: CHILD Pre-Admission Living Arrangements: Lives with Other Prior ADL Needs Assistance Current Home Health Name/Tel: N/A Current DME/02 Name/Tel: WHEELCHAIR, OXYGEN, WALKER Current Hospice Name/Tel: N/A Current Dialysis Name/Tel: N/A Healthcare Decision Maker: Patient Advance Directive No Physician Orders for Life Sustaining Treatment Form No Patient/Family Have Educational Needs No Discipline: Case Mgt/Social Svcs Tentative Discharge Plan/Destination: No Needs Identified Will require assistance post discharge: No Referred to Metal Fabricating Inspector: No Tentative Discharge Plan Summary: PATIENT IS A 54 YEAR OLD FEMALE ADMITTED FOR CHF. PATIENT HAS PMHX OF ASTHMA, CHF, COPD, DIABETES AND HYPETENSION. PATIENT WAS ADMITTED FROM HOME WHERE SHE LIVES WITH HER DAUGHTER AND FOSTER CHILDREN. PATIENT CONTACTED NAYA SHELL [phone]. PER NAYA, SHE IS THE PRIMARY CAREGIVER OF PATIENT. NAYA STATED THAT SHE ASSISTS PATIENT WITH BATHING, PREPARING MEALS, AND TRANSPORTATION TO DOCTOR APPOINTMENTS. NAYA STATED THAT FOSTER CHILDREN ALSO ASSIST PATIENT. NAYA REPORTED NO HISTORY OF MENTAL HEATLH AND NO HISTORY OF SUBSTANCE ABUSE. Signature: BERTHA OSMAN Date: August 01, 2019 Time: 11:00
--- NOTE | 2019-08-01 11:19 | NUR ---
DR KING CALLED TO INFORM HIM,OF ABNORMAL LAB VALUE; MAGNESIUM: 1.6. MESSAGE LEFT.
--- NOTE | 2019-08-01 11:35 | NUR ---
PT FOUND LYING ON THE FLOOR. PT STATED THAT SHE GOT UP TO USE THE RESTROOM, LOST HER BALANCE TRYING TO PUT ON HER SANDAL, AND FELL. PT DENIES HITTING HER HEAD, STATED THAT SHE HAS PAIN IN HER RT KNEE AND THIGH. ASSISTED PT BACK TO BED, AND THEN TO THE RESTROOM. SHE CURRENTLY DENIES ANY DIZZINESS. HEAD BUCKER IN ROOM WITH PT. WILL CONTINUE TO MONITOR.
[2019-08-01 12:00] VITALS: BP 139/91
[2019-08-01] MEDS: IPRATROPIUM 0.02% 0.5 MG/2.5 ML NEBU INH SCH ×3 (12:59→19:00)
--- NOTE | 2019-08-01 15:06 | NUR ---
RECEIVED PHONE CALL FROM LAB INFORMING ME OF LAB RESULT; TROPONIN: 0.166.
[2019-08-01 16:00] VITALS: BP 135/93
--- NOTE | 2019-08-01 16:01 | NUR ---
DR KING INFORMED THAT BGL IS 120. PER DR KING, THE 1300 DOSE OF HUMALOG SHOULD NOT BE GIVEN. WILL REASSESS BGL FOR 1700 DOSE.
--- NOTE | 2019-08-01 16:45 | NUR ---
CALLED DR KING REGARDING MAGNESIUM LEVEL OF 1.6. PER DR KING, 2G MAG SULFATE TO BE GIVEN.
--- NOTE | 2019-08-01 17:25 | NUR ---
BGL: 185. SCHEDULED 12 UNITS OF INSULIN GIVEN.
--- NOTE | 2019-08-01 17:54 | NUR ---
MAGNESIUM HUNG, AND RUNNING PER ORDERS. MAG LEVEL: 1.6.
[2019-08-01] MEDS ORDERED: MAG SULF 2000 MG/WATER PREMIX 50 ML IV SCH (18:00)
[2019-08-01] MEDS ORDERED: HYDROcodone/APAP 10/325 MG 1 TAB TAB PO PRN (18:00)
--- NOTE | 2019-08-01 19:35 | NUR ---
ENDORSED TO ASSOCIATE PROFESSOR OF HISTORY NURSE FOR CONTINUITY OF CARE. PT IS IN STABLE CONDITION.
--- NOTE | 2019-08-01 19:36 | NUR ---
RECEIVED REPORT FROM INSTRUMENTATION AND CONTROL TECHNICIAN NURSE FOR CONTINUITY OF CARE. PT IS AA&OX4, SITTING UP IN BED. L HAND 2OG IV IS PATENT AND INTACT, SALINE LOCK. RESPIRATIONS ARE EVEN AND UNLABORED, RA, REVIEWED PLAN OF CARE. TELE MONITOR ATTACHED. SAFETY MEASURES IN PLACE, CALL LIGHT WITHIN REACH, BED IN LOW POSITION. NO DISTRESS NOTED. WILL CONTINUE TO MONITOR.
[2019-08-01 20:00] VITALS: BP 129/90
[2019-08-01] MEDS: INSULIN LISPRO SLIDING SCALE 100 UNITS/ML VIAL SUBQ PRN (20:20)
[2019-08-01] MEDS: INSULIN LANTUS 100 UNITS/ML 10 ML VIAL SUBQ SCH (20:40)
--- NOTE | 2019-08-01 20:48 | NUR ---
C/O OF PAIN BODY PAIN, RIGHT KNEE AND THIGH GIVEN NORCO ORDERED BY Dane YANEZ EARLIER DURING ROUNDS
--- NOTE | 2019-08-01 21:48 | NUR ---
REASSESSMENT FOR PAIN DONE, PT RESTING AT THIS TIME NO COMPLAINTS
[2019-08-02] VITALS: BP 127/87
--- NOTE | 2019-08-02 00:15 | NUR ---
PT SLEEPING NOW, ASSISTED TO BATHROOM, PT STANDBY ASSIST VOIDED WITH EASE
[2019-08-02] MEDS: IPRATROPIUM 0.02% 0.5 MG/2.5 ML NEBU INH SCH ×3 (01:00→13:25)
--- NOTE | 2019-08-02 01:27 | NUR ---
ENDORSED TO TAMIKA, SLEEPING, NO COMPLAINTS NOT IN RESPIRATORY DISTRESS WITH LEFT HAND G 20 SALINE LOCK.
--- NOTE | 2019-08-02 01:28 | NUR ---
RECEIVED BEDSIDE REPORT FROM ALISTAIR. PT IS SLEEPING COMFORTABLY IN BED WITH EYES CLOSED. CHEST RISE AND FALL NOTED. PT IS ON ROOM AIR NO S/S OF DISTRESS. SKIN INTACT PER RN. IV ON L HAND 20G SL. C/C CH SOB. DX CHF EXACERBATION. PT ON FALL PRECAUTION WITH BED ALARM ON. CALL LIGHT IS WITHIN REACH. WILL MONITOR FREQUENTLY.
[2019-08-02 04:00] VITALS: BP 122/88
--- NOTE | 2019-08-02 04:00 | NUR ---
VITAL SIGNS ARE WITHIN NORMAL LIMITS. NO S/S OF DISTRESS. CALL LIGHT IS WITHIN REACH. WILL CONTINUE TO MONITOR.
--- NOTE | 2019-08-02 05:30 | NUR ---
GAVE PT CUP OF ICE CHIPS PER REQUEST. CALL LIGHT IS WITHIN REACH
[2019-08-02 06:24] LABS: BASOPHILS # (AUTO) 0.2 K/uL (0.00-0.22); BASOPHILS % (AUTO) 2.5 % (0.0-2.0); EOSINOPHILS # (AUTO) 0.3 K/uL (0-0.4); EOSINOPHILS % (AUTO) 4.4 % (0.0-4.0); HEMATOCRIT 34.7 % (36-48); HEMOGLOBIN 10.7 g/dL (12.0-16.0); LYMPHOCYTES # (AUTO) 2.6 K/uL (2.5-16.5); LYMPHOCYTES % (AUTO) 39.9 % (20.5-51.1); MEAN CORPUSCULAR HEMOGLOBIN 23 pg (27-31); MEAN CORPUSCULAR HGB CONC 31 g/dL (33-37); MEAN CORPUSCULAR VOLUME 72.7 fL (80-94); MONOCYTES # (AUTO) 0.6 K/uL (0.8-1.0); MONOCYTES % (AUTO) 9.8 % (1.7-9.3); NEUTROPHILS # (AUTO) 2.8 K/uL (1.8-7.7); NEUTROPHILS % (AUTO) 43.4 % (42.2-75.2); PLATELET COUNT (AUTO) 317 K/uL (140-450); RED BLOOD CELL COUNT(AUTO) 4.77 MIL/uL (4.20-5.40); RED CELL DISTRIBUTION WIDTH 20.6 % (11.6-13.7); WHITE BLOOD COUNT (AUTO) 6.4 K/uL (4.8-10.8)
[2019-08-02] MEDS: BLOOD GLUCOSE MONITORING 1 DEV DEV FS SCH ×2 (06:41→13:12)
[2019-08-02 06:48] LABS: ANION GAP 7.3 (8-16); CARBON DIOXIDE 33.7 mmol/L (21-32); CREATININE 1.5 mg/dL (0.6-1.3)
--- NOTE | 2019-08-02 07:00 | NUR ---
BLOOD SUGAR 129 NO COVERAGE NEEDED. PT RESTING COMFORTABLY IN BED. WILL ENDORSE TO DAY RN. PT IS STABLE.
--- NOTE | 2019-08-02 07:11 | NUR ---
RECEIVED REPORT FROM FIELD MANAGER NURSE FOR CONTINUITY OF CARE. PT IS AA&OX4, LYING IN BED, SUPINE. L HAND 2OG IV IS PATENT AND INTACT, SALINE LOCK. RESPIRATIONS ARE EVEN AND UNLABORED, BREATHING TO NC @ 2LPM. REVIEWED PLAN OF CARE WITH PATIENT. TELE MONITOR ATTACHED. SAFETY MEASURES IN PLACE, CALL LIGHT WITHIN REACH, BED IN LOW POSITION. NO DISTRESS NOTED. WILL CONTINUE TO MONITOR.
[2019-08-02 07:52] VITALS: BP 146/84
--- NOTE | 2019-08-02 08:03 | NUR ---
CENTRAL SUPPLY CALLED FOR THE SCDS ORDERED FOR THE PATIENT.
--- NOTE | 2019-08-02 08:21 | NUR ---
ASSISTED PT TO THE RESTROOM AND BACK TO BED. BED ALARM ON. APPLIED SCDS TO PT'S LEGS, AND TURNED ON. PT IS SITTING UP IN BED GETTING READY TO EAT HER BREAKFAST. NO DISTRESS NOTED. SAFETY MEASURES IN PLACE. WILL CONTINUE TO MONITOR.
[2019-08-02] MEDS ORDERED: ACET-9525 PO (08:49)
[2019-08-02] MEDS: CARVEDILOL 3.125 MG TAB PO SCH (10:11)
[2019-08-02] MEDS: GABAPENTIN 300 MG CAP PO SCH (10:12)
[2019-08-02] MEDS: INSULIN LISPRO 100 UNITS/ML VIAL SUBQ SCH ×2 (10:22→13:00)
--- NOTE | 2019-08-02 10:27 | NUR ---
SCHEDULED MEDS GIVEN. MEDICATION EDUCATION GIVEN, WITH PT VERBALIZING UNDERSTANDING. PT TOLERATED PO MEDS WELL. BP: 146/84. BGL: 202. NO DISTRESS NOTED. WILL CONTINUE TO [id number].
--- NOTE | 2019-08-02 11:56 | NUR ---
POUNCER NOTE: TAMMY CONTACTED DR. BELEN KING'S OFFICE [phone] AND SPOKE TO LES TO SCHEDULE POST DISCHARGE APPOINTMENT. PER LES, PATIENT ARRANGED FOR APPOINTMENT TO BE ON 08/21/2019 @ 1400 AT [address] [facility] [address] [address] [place] [id number]. NO FURTHER NEEDS IDENTIFIED.
--- NOTE | 2019-08-02 12:05 | NUR ---
SPOKE TO DR. DALE KING AND MADE A TELEPHONE ORDER THAT PT IS STABLE FOR DISCHARGE.
--- NOTE | 2019-08-02 13:17 | NUR ---
DR. WAYNE GERMAIN CALLED AND MADE A TELEPHONE ORDER THAT PT IS STABLE FOR DISCHARGE, SAID THAT HE WILL BE ROUNDING AT 1400. RN INFORMED.
--- NOTE | 2019-08-02 16:20 | NUR ---
DISCHARGE PAPERWORK EXPLAINED, WITH PT VERBALIZING UNDERSTANDING. ALL DISCHARGE PAPERWORK SIGNED. PRESCRIPTION GIVEN. PT'S DAUGHTER TO PICK HER UP AND BRING HER HOME. ARM BANDS, TELE MONITOR, AND IV REMOVED, WITH CATHETER INTACT. PT ASSCORTED OFF UNIT IN A WHEEELCHAIR BY NANCY. PT IN STABLE CONDITION.
== END 2019-08-02 16:20 | disposition home or self-care (01) | DRG 190 ==
LOC: MED 22:59 → MTU 07-31 01:23
PROVIDERS: ADMIT Preventive Medicine Preventive Medicine/Occupational Environmental Medicine; ATTEND Preventive Medicine Preventive Medicine/Occupational Environmental Medicine
DX: I21.A1 Myocardial infarction type 2 (principal); J96.01 Acute respiratory failure with hypoxia; I50.43 Acute on chronic combined systolic (congestive) and diastolic (congestive) heart failure; N17.9 Acute kidney failure, unspecified; E11.22 Type 2 diabetes mellitus with diabetic chronic kidney disease; E66.01 Morbid (severe) obesity due to excess calories; I27.20 Pulmonary hypertension, unspecified; E11.40 Type 2 diabetes mellitus with diabetic neuropathy, unspecified; I13.0 Hypertensive heart and chronic kidney disease with heart failure and stage 1 through stage 4 chronic kidney disease, or unspecified chronic kidney disease; D64.9 Anemia, unspecified; E11.65 Type 2 diabetes mellitus with hyperglycemia; E83.51 Hypocalcemia; E88.09 Other disorders of plasma-protein metabolism, not elsewhere classified; I25.10 Atherosclerotic heart disease of native coronary artery without angina pectoris; N18.9 Chronic kidney disease, unspecified; Z88.4 Allergy status to anesthetic agent; Z88.8 Allergy status to other drugs, medicaments and biological substances; Z20.828 Contact with and (suspected) exposure to other viral communicable diseases; E66.9 Obesity, unspecified; I42.9 Cardiomyopathy, unspecified; J44.9 Chronic obstructive pulmonary disease, unspecified
CPT/HCPCS: 36415; 71045; 80048; 80053; 82550; 82553; 82948; 83735; 83880; 84100; 84484; 85025; 87081; 93005; 94640; 96374; 96375; 96376; 99285; J1644; J1815; J1940; J2270; J2405; J3475; J7644; Q0092

== ENCOUNTER 2019-08-10 23:27 | Inpatient (IN) | payer MEDICAID ==
[~2019-08-10] VITALS: Ht 170.2 cm; Wt 130.6 kg
[~2019-08-10 23:27] MED LIST changes: +ACET-9525 PO; -DEXT5SYR3 PO; +HUM SUBQ
[2019-08-10 23:30] VITALS: BP 182/119
--- NOTE | 2019-08-10 23:30 | NUR ---
PT TAKEN TO BED 11
--- NOTE | 2019-08-10 23:32 | NUR ---
Dr. Yan examining patient.
--- NOTE | 2019-08-10 23:40 | NUR ---
54 Y/O FEMALE PRESENTS TO ER WITH C/O EXACERBATION OF COPD, AND SOB X 1 DAY. C/O 10/10 IN BILATERAL LOWER EXTREMITY. CRACKLES AUSCULTATED BILATERALLY IN LOWER LOBES, DENIES COUGH, NO COUGH NOTED. BILATERAL EXTREMITY EDEMA WITH PITTING +1. BILATERAL POSTERIOR TIBIALIS AND PEDAL PULSE NOT FELT ON PALPATION. SIDE RAIL X 1, BED IN LOW POSITION, WILL CONTINUE TO MONITOR ALLERGIES: DEXAMETHASONE, IBUPROFEN, KETAMINE PMH: CHF, COPD, HTN, DM, ASTHMA, SCIATICA, PINCH NERVE RIGHT SHOULDER
[2019-08-11 00:09] LABS: HEMATOCRIT 35.8 % (36-48); HEMOGLOBIN 10.9 g/dL (12.0-16.0); MEAN CORPUSCULAR HEMOGLOBIN 22 pg (27-31); MEAN CORPUSCULAR HGB CONC 31 g/dL (33-37); MEAN CORPUSCULAR VOLUME 71.7 fL (80-94); PLATELET COUNT (AUTO) 241 K/uL (140-450); RED BLOOD CELL COUNT(AUTO) 4.99 MIL/uL (4.20-5.40); RED CELL DISTRIBUTION WIDTH 20.7 % (11.6-13.7)
[2019-08-11] MEDS: FUROSEMIDE 40 MG/4 ML VIAL IVP ONE ×2 (00:17→00:24)
[2019-08-11] MEDS: MORPHINE SULFATE 4 MG/ML SYR IVP ONE ×2 (00:19→00:25)
[2019-08-11] MEDS: ONDANSETRON 4 MG/2 ML VIAL IVP ONE ×2 (00:20→00:24)
[2019-08-11 00:31] LABS: ALBUMIN 2.9 g/dL (3.4-5.0); ANION GAP 10.7 (8-16); CARBON DIOXIDE 29.2 mmol/L (21-32); CREATININE 1.6 mg/dL (0.6-1.3); POTASSIUM 3.9 mmol/L (3.5-5.1); TOTAL BILIRUBIN 0.5 mg/dL (0.0-1.0)
[2019-08-11 00:35] LABS: EOSINOPHILS % (MANUAL) 3 % (0-4); LYMPHOCYTES % (MANUAL) 51 % (20-46); MONOCYTES % (MANUAL) 4 % (5-12)
--- NOTE | 2019-08-11 00:39 | NUR ---
X-Ray at bedside.
[2019-08-11 00:41] LABS: CREATINE KINASE MB 0.5 ng/mL (0-3.6)
[2019-08-11] MEDS ORDERED: ASPIRIN 325 MG TAB PO ONE (01:25)
[2019-08-11] MEDS ORDERED: MORPHINE SULFATE 10 MG/ML VIAL IVP ONE (01:25)
--- NOTE | 2019-08-11 02:10 | NUR ---
PT BROUGHT UP BY JUNIOR TO ROOM 111A AND AMBULATED TO BED B. PT IS AOX4 SHE HAS 2 LITERS RUNNING VIA N/C. PT SKIN INTACT, HOWEVER SHE DOES HAVE NON PITTING EDEMA OF BILATERAL LOWER LEGS. SHE 2 IV SITE BOTH IN THE RIGHT AND LEFT AC 20 G INTACT AND ASYMPTOMATIC. V/S FOLLOWS: T 97.6 P 88 R 18 B/P 157/105. 02 98% WITH 2 LITERS VIA N/C. FINGERSTICK IS 250. WILL PAGE MD KING FOR ADDITIONAL ORDERS.
--- NOTE | 2019-08-11 02:15 | NUR ---
Patient will be admitted to care of DR. KING. Admited to TELE. Will go to room 111A. Belongings list completed. Report to BELINDA MAURER.
--- NOTE | 2019-08-11 03:55 | NUR ---
MD KING PAGED X2 AWAITING CALL BACK PT IS IN BED ASLEEP WITH 2 LITERS VIA N/C. WILL RECHECK V/S AGAIN TRY AND REACH MD FOR ADDITIONAL ORDERS.
--- NOTE | 2019-08-11 04:47 | NUR ---
STILL AWAITING RETURN CALL FROM FERNANDO Vela REGARDING TO CONTINUE WITH HOME MEDS; ANY FLUID ORDERS AND ORDERS FOR FINGERSTICKS AND S/S. CHARGE NURSE AMELIA MADE AWARE, WILL ENDORSE TO AM SHIFT TO FOLLOW UP ORDERS.
[2019-08-11 05:07] VITALS: BP 157/105
--- NOTE | 2019-08-11 06:00 | NUR ---
FERNANDO CALLED BACK NEW ORDERS NOTED, PT SLEEPING SOUNDLY
[2019-08-11] MEDS ORDERED: HYDROcodone/APAP 5/325 MG 1 TAB TAB PO PRN ×2 (06:20→10:55)
[2019-08-11] MEDS ORDERED: DEXTROSE 50% 50 ML SYR IVP PRN (06:20)
--- NOTE | 2019-08-11 07:15 | NUR ---
RECEIVED REPORT FROM NIGHT NURSE PT IS ON 2LPM OXYGEN VIA NC ON TELEMETRY MONITORING. SAFETY MEASURES IN PLACE, CALL LIGHT WITHIN REACH. WILL CONTINUE TO MONITOR.
[2019-08-11] MEDS: BLOOD GLUCOSE MONITORING 1 DEV DEV FS SCH ×4 (07:30→20:49)
[2019-08-11 07:45] LABS: BASOPHILS # (AUTO) 0.1 K/uL (0.00-0.22); BASOPHILS % (AUTO) 2.1 % (0.0-2.0); EOSINOPHILS # (AUTO) 0.1 K/uL (0-0.4); HEMATOCRIT 35.1 % (36-48); WHITE BLOOD COUNT (AUTO) 5.3 K/uL (4.8-10.8)
[2019-08-11 07:53] LABS: EOSINOPHILS % (AUTO) 2.2 % (0.0-4.0); HEMOGLOBIN 10.8 g/dL (12.0-16.0); LYMPHOCYTES # (AUTO) 2.7 K/uL (2.5-16.5); LYMPHOCYTES % (AUTO) 50.9 % (20.5-51.1); MEAN CORPUSCULAR HEMOGLOBIN 22 pg (27-31); MEAN CORPUSCULAR HGB CONC 31 g/dL (33-37); MEAN CORPUSCULAR VOLUME 71.6 fL (80-94); MONOCYTES # (AUTO) 0.4 K/uL (0.8-1.0); NEUTROPHILS % (AUTO) 36.8 % (42.2-75.2); PLATELET COUNT (AUTO) 226 K/uL (140-450); RED CELL DISTRIBUTION WIDTH 20.2 % (11.6-13.7)
[2019-08-11 08:00] VITALS: BP_SYST 139; BP_SYST 147; BP_DIAS 107; BP_DIAS 114
[2019-08-11] MEDS: GABAPENTIN 300 MG CAP PO SCH ×2 (08:27→20:55)
[2019-08-11] MEDS: CARVEDILOL 3.125 MG TAB PO SCH ×2 (08:27→16:45)
[2019-08-11] MEDS: INSULIN LISPRO SLIDING SCALE 100 UNITS/ML VIAL SUBQ PRN ×3 (08:34→16:43)
--- NOTE | 2019-08-11 08:35 | NUR ---
BLOOD GLUCOSE MONITORING DONE, AND MEDICATIONS DUE GIVEN. CHECK VITAL SIGNS PRIOR TO MEDICATION. BP 139/107, NJ 77. PT COMPLAINS OF CHEST PAINS AND HEADACHE AND DID NOT SLEEP WELL LAST NIGHT. WILL CONTINUE TO MONITOR.
--- NOTE | 2019-08-11 08:49 | NUR ---
PT COMPLAINS OF CHEST PAIN AND HEADACHE, NAUSEA AND VOMITED. CALLED DR KING AND WAITING FOR HIS CALL. WILL CONTINUE TO MONITOR.
[2019-08-11] MEDS ORDERED: FUROSEMIDE 40 MG TAB PO SCH (09:00)
[2019-08-11 09:13] LABS: ANION GAP 15.8 (8-16); CARBON DIOXIDE 28.6 mmol/L (21-32); CREATININE 1.6 mg/dL (0.6-1.3); POTASSIUM 4.4 mmol/L (3.5-5.1)
--- NOTE | 2019-08-11 09:23 | NUR ---
RECEIVED CRITICAL VALUE FROM LAB TROPONIN 0.176. REPORTED TO DR KING AND REFERRED PAT TO CARDI CONSULT.
[2019-08-11] MEDS ORDERED: ONDANSETRON 4 MG/2 ML VIAL IVP PRN ×2 (10:55→17:15)
[2019-08-11] MEDS ORDERED: ACETAMINOPHEN EXTRA STRENGTH 500 MG TAB PO PRN (10:55)
--- NOTE | 2019-08-11 11:30 | NUR ---
CHECK BLOOD SUGAR 206 MG/DL GAVE INSULIN 4 UNITS. CHECK VITAL SIGNS BP 147/114 VT 86, INFORMED DR KING. SAFETY MEASURES IN PLACE CALL LIGHT WITHIN REACH. WILL CONTINUE TO MONITOR.
[2019-08-11 12:00] VITALS: BP 147/114
[2019-08-11] MEDS ORDERED: LOSARTAN 25 MG TAB PO SCH ×2 (13:00)
[2019-08-11] MEDS: FUROSEMIDE 20 MG/2 ML VIAL IVP SCH (13:43)
--- NOTE | 2019-08-11 13:47 | NUR ---
MEDICATIONS DUE GIVEN PT BP 136/84 MD 77. PT IS STABLE NO DISTRESS NOTED. SAFETY MEASURES IN PLACE AND CALL LIGHT WITHIN REACH. WILL CONTINUE TO MONITOR.
--- NOTE | 2019-08-11 14:30 | NUR ---
BLOOD GLUCOSE MONITORING DONE AND PT IS STABLE, SLEEPING COMFORTABLE, NO DISTRESS NOTED. SAFETY MEASURES IN PLACE, CALL LIGHT WITHIN REACH. WILL CONTINUE TO MONITOR.
--- NOTE | 2019-08-11 15:02 | NUR ---
DISCHARGE PLANNING: THIS IS A 54 Y/O FEMALE PATIENT FROM HOME, WHO CAME IN DUE SOB. PAST MEDICAL HISTORY INCLUDE ASTHMA, CHF, COPD, DIABETES AND HTN. INITIAL DIAGNOSIS OF CHF. CURRENT LABS INCLUDE WBC 5.2, H/H 10.8/35.1, BUN/CREA 27/1.6. TROPS 0.176, BNP 2190. CXR SHOWED CARDIOMEGALY, INCREASED DENSITY RIGHT LUNG BASE LATERALLY COULD REPRESENT ATELECTASIS OF INFILTRATE. ON LASIX IV. SEEN BY CARDIO - RECOMMENDED TO CONTINUE CURRENT CARDIAC THERAPIES. DC PLAN BACK TO HOME ONCE STABLE. Addendum: 08/12/19 at 1150 by Bhargavi Cannon CM DC PLANNING: SEEN BY A&P MECHANIC DR IONA Iyer RECOMMENDED CONTINUE WITH CURRENT CARDIAC MEDS AND FOLLOW UP WITH RENAL FUNCTIONS THAT IS BUN/CREATININE AND K+LEVEL. DC PLAN TO GO HOME WHEN STABLE . CM TO FOLLOW Addendum: 08/14/19 at 1145 by Bhargavi Cannon CM DC PLANNING: SEEN BY VITREO RETINAL SURGEON DR MARCELLUS BLACK ADJUSTED MEDS AND STATED STABLE FOR DISCHARGE AND RECOMMENDED TO FOLLOW UP IN OUTPATIENT CLINIC 2-4 WEEK POST DISCHARGE. DC PLAN TO GO HOME WHEN STABLE. CM TO FOLLOW Addendum: 08/14/19 at 1437 by Linda Keys CM CONTACTED PCP [phone] TO SCHEDULE APPOINTMENT. SPOKE TO KEMAR PATIENTS APPOINTMENT SCHEDULED NEXT Monday08/21/2019 AT 2:00 PM FOR A TELEPHONE APPOINTMENT.
[2019-08-11 16:00] VITALS: BP 137/89
[2019-08-11] MEDS ORDERED: LORazepam 2 MG/ML VIAL IVP PRN (17:15)
[2019-08-11] MEDS ORDERED: ACETAMINOPHEN 325 MG TAB PO PRN (17:15)
--- NOTE | 2019-08-11 18:51 | NUR ---
RECEIVED CRITICAL VALUE FROM THE LAB MATHIEU AT THIS TIME, REPORTED TO DR KING AND WAITING FOR ORDERS.
--- NOTE | 2019-08-11 19:10 | NUR ---
ENDORSED PT TO NIGHT NURSE. PT IS AWAKE AND STABLE.
--- NOTE | 2019-08-11 19:11 | NUR ---
RECEIVED BEDSIDE SHIFT REPORT FROM DAYSHIFT NURSE FOR CONTINUITY OF CARE. PATIENT AWAKE AND ALERT IN BED TALKING ON THE TELEPHONE. NO SIGNS OF DISTRESS NOTED. PT ON 2L O2 VIA NC RESPIRATIONS EVEN AND UNLABORED. CALL LIGHT WITHIN REACH. WILL CONTINUE TO MONITOR
--- NOTE | 2019-08-11 19:34 | NUR ---
[facility] NURSE ENDORSED THAT SHE PAGED FOR DR. Shadi KING TO REPORT A CRITICAL LAB VALUE WAITING ON Shadi KING TO CALL BACK. AT 193 RECEIVED A RETURN CALL FROM . REPORTED ELEVATED TROPONIN OF 0.170 THAT IS TRENDING DOWN PREVIOUS READING 0.176. NO NEW ORDERS OBTAINED FROM .
[2019-08-11 20:00] VITALS: BP 139/90
[2019-08-11] MEDS: IPRATROPIUM 0.02% 0.5 MG/2.5 ML NEBU INH SCH (20:14)
--- NOTE | 2019-08-11 20:14 | NUR ---
PATIENT TALKING ON PHONE AT THIS TIME. PATIENT REFUSED TX AT THIS TIME AND ASKED RT TO COME BACK AT LATER TIME FOR TREATMENT. NO ACUTE RESPIRATORY DISTRESS NOTED. WILL CONTINUE TO MONITOR.
[2019-08-11] MEDS: INSULIN LANTUS 100 UNITS/ML 10 ML VIAL SUBQ SCH (20:51)
[2019-08-11] MEDS: ATORVASTATIN 20 MG TAB PO SCH (20:55)
--- NOTE | 2019-08-11 20:55 | NUR ---
ADMINISTERED 2100 MEDICATIONS TO PATIENT WITH THE EXCEPTION OF LANTUS. OBTAINED A BEDSIDE BS OF 135. PT TOLERATED MEDICATION WELL NO SIGNS OF DISTRESS NOTED. CALL LIGHT WITHIN REACH WILL CONTINUE TO MONITOR
--- NOTE | 2019-08-11 22:56 | NUR ---
ROUNDING. PATIENT AWAKE IN BED WATCHING TELEVISION. NO SIGNS OF DISTRESS NOTED. RESPIRATIONS ARE EVEN AND UNLABORED ON 2L O2 VIA NC. CALL LIGHT WITHIN REACH. WILL CONTINUE TO MONITOR
[2019-08-12] VITALS: BP 149/94
--- NOTE | 2019-08-12 01:03 | NUR ---
ROUNDING, PATIENT AWAKE IN BED. NO SIGNS OF DISTRESS NOTED. RESPIRATIONS EVEN AND UNLABORED ON 2LO2 VIA NC. TELE MONITOR ATTACHED AND CALL LIGHT WITHIN REACH.
[2019-08-12] MEDS: IPRATROPIUM 0.02% 0.5 MG/2.5 ML NEBU INH SCH ×4 (01:32→19:44)
--- NOTE | 2019-08-12 03:16 | NUR ---
ROUNDING PATIENT RESTING NO SIGNS OF DISTRESS NOTED. CALL LIGHT WITHIN REACH
[2019-08-12 04:00] VITALS: BP 145/92
[2019-08-12] MEDS: BLOOD GLUCOSE MONITORING 1 DEV DEV FS SCH ×4 (06:20→20:17)
[2019-08-12 07:03] LABS: ALBUMIN 2.8 g/dL (3.4-5.0); ANION GAP 7.7 (8-16); CARBON DIOXIDE 33.7 mmol/L (21-32); CREATININE 1.4 mg/dL (0.6-1.3); MAGNESIUM 1.5 mg/dL (1.8-2.4); PHOSPHORUS 4.6 mg/dL (2.5-4.9); POTASSIUM 4.4 mmol/L (3.5-5.1); TOTAL BILIRUBIN 0.6 mg/dL (0.0-1.0)
--- NOTE | 2019-08-12 07:20 | NUR ---
RECEIVED REPORT FROM FINANCE CLERK NURSE FOR CONTINUITY OF CARE. PATIENT LYING DOWN IN BED SLEEPING, AROUSABLE BY VOICE. NO DISTRESS NOTED. DENIES ANY PAIN. AAOX4, CALM, COOPERATIVE, SKIN COLOR APPROPRIATE TO ETHNICITY, WARM TO TOUCH. SKIN INTACT. RESPIRATIONS EVEN, UNLABORED, ON O2 2L/MIN VIA NC. ABDOMEN SOFT, NON-DISTENDED. IV SITE INTACT, PATENT, ON SALINE LOCK. REVIEWED PLAN OF CARE WITH PATIENT. PATIENT VERBALIZED UNDERSTANDING. SAFETY MEASURES IN PLACE, CALL LIGHT WITHIN REACH. WILL CONTINUE TO MONITOR.
[2019-08-12 07:37] LABS: BASOPHILS # (AUTO) 0.1 K/uL (0.00-0.22); EOSINOPHILS # (AUTO) 0.1 K/uL (0-0.4); HEMATOCRIT 36.2 % (36-48); LYMPHOCYTES # (AUTO) 1.9 K/uL (2.5-16.5); LYMPHOCYTES % (AUTO) 39.8 % (20.5-51.1); MEAN CORPUSCULAR HEMOGLOBIN 22 pg (27-31); MEAN CORPUSCULAR HGB CONC 30 g/dL (33-37); MEAN CORPUSCULAR VOLUME 72.4 fL (80-94); MONOCYTES # (AUTO) 0.3 K/uL (0.8-1.0); MONOCYTES % (AUTO) 7.1 % (1.7-9.3); NEUTROPHILS # (AUTO) 2.3 K/uL (1.8-7.7); NEUTROPHILS % (AUTO) 48.1 % (42.2-75.2); PLATELET COUNT (AUTO) 209 K/uL (140-450); RED CELL DISTRIBUTION WIDTH 20.5 % (11.6-13.7); WHITE BLOOD COUNT (AUTO) 4.8 K/uL (4.8-10.8)
[2019-08-12 08:00] VITALS: BP 127/91
[2019-08-12] MEDS ORDERED: LOSARTAN 25 MG TAB PO SCH ×2 (09:00)
[2019-08-12] MEDS: FUROSEMIDE 20 MG/2 ML VIAL IVP SCH ×2 (09:44→14:46)
[2019-08-12] MEDS: CARVEDILOL 3.125 MG TAB PO SCH ×2 (09:44→17:45)
--- NOTE | 2019-08-12 09:44 | NUR ---
PATIENT HAS BEEN SCREENED AND CATEGORIZED MODERATE NUTRITION RISK. PATIENT WILL BE SEEN WITHIN 3-5 DAYS OF ADMISSION. 08/13/19 08/15/[address]
[2019-08-12] MEDS: GABAPENTIN 300 MG CAP PO SCH ×2 (09:45→21:41)
--- NOTE | 2019-08-12 09:51 | NUR ---
PATIENT SITTING IN BED TALKING WITH HER FAMILY AT BEDSIDE. NO DISTRESS NOTED. DENIES ANY PAIN. SCHEDULED MEDICATIONS DUE GIVEN. WILL CONTINUE TO MONITOR.
--- NOTE | 2019-08-12 10:10 | NUR ---
ASSUMED CARE FROM STOCK PLAN ADMINISTRATOR NURSE. PT AAOX4. NO SOB NOTED.
--- NOTE | 2019-08-12 11:24 | NUR ---
BELT WORKER NOTE: Basic Screen: Yes High Risk DC Screen [place]: NAYA SHELL Home Relationship: DAUGHTER Pre-Admission Living Arrangements: Lives with Other Prior ADL Needs Assistance Current Home Health Name/Tel: N/A Current DME/02 Name/Tel: [facility], WALKER Current Hospice Name/Tel: N/A Current Dialysis Name/Tel: N/A Healthcare Decision Maker: Patient Advance Directive No Physician Orders for Life Sustaining Treatment Form No Patient/Family Have Educational Needs No Information Taught: Community Resources Person Taught: Patient Teaching Tools: Community Resources Computer Generated Print Factors Affecting Learning: None Participation Level: Active Evaluation: Verbalizes Understanding Needs Additional Education: No Discipline: Case Mgt/Social Svcs Tentative Discharge Plan/Destination: No Needs Identified Will require assistance post discharge: No Referred to Storage Worker: No Tentative Discharge Plan Summary: PATIENT IS A 54-YEAR-OLD FEMALE ADMITTED FOR CHF. PATIENT WAS ADMITTED FOR ASTHMA, COPD, CHF, DIABETES, AND HYPERTENSION. PATIENT WAS ADMITTED FROM HOME WHERE SHE LIVES WITH HER DAUGHTER. SW SPOKE WITH PATIENT AT BEDSIDE TO VERIFY DEMOGRAPHICS. PER PATIENT, HER DAUGHTER NAYA SHELL IS HER PRIMARY CAREGIVER AND IS REIMBURSED THROUGH [facility]. PATIENT REQUESTED ADDITIONAL [facility] INFORMATION. SW PROVIDED SS RESOURCES. PATIENT STATED THAT SHE REQUIRES ASSISTANCE WITH BATHING, CLEANING, AND PREPARING MEALS. PATIENT REPORTED NO HISTORY OF MENTAL HEALTH OR SUBSTANCE ABUSE. TENTATIVE DISCHARGE PLAN IS FOR PATIENT TO RETURN HOME. NO FURTHER NEEDS IDENTIFIED. Signature: BERTHA OSMAN Date: August 12, 2019 Time: 11:23
[2019-08-12 12:00] VITALS: BP 145/96
[2019-08-12] MEDS: INSULIN LISPRO SLIDING SCALE 100 UNITS/ML VIAL SUBQ PRN (12:28)
[2019-08-12] MEDS ORDERED: MAG SULF 2000 MG/WATER PREMIX 50 ML IV SCH (14:15)
[2019-08-12 16:00] VITALS: BP 129/86
[2019-08-12 16:12] LABS: URINE TOTAL PROTEIN 15.1 mg/dL (0-12)
--- NOTE | 2019-08-12 19:10 | NUR ---
PT AWAKE, WATCHING TV. NO SOB NOTED. NO COMPLAINTS MADE. WILL ENDORSE TO NEXT SHIFT NURSE FOR CONTINUITY OF CARE.
--- NOTE | 2019-08-12 19:11 | NUR ---
URINE SPECIMEN COLLECTED AND SENT TO LAB.
--- NOTE | 2019-08-12 19:30 | NUR ---
RECEIVED BEDSIDE SHIFT REPORT FROM DAYSHIFT NURSE FOR CONTINUITY OF CARE. PATIENT AWAKE AND ALERT ON 2L O2 VIA NC. IV PATENT. TELE MONITOR ATTACHED AND CALL LIGHT WITHIN REACH. WILL CONTINUE TO MONITOR.
[2019-08-12] MEDS: ALBUTEROL 0.083% 2.5 MG/3 ML NEBU INH PRN (19:51)
[2019-08-12 20:00] VITALS: BP 150/95
--- NOTE | 2019-08-12 20:17 | NUR ---
OBTAINED BEDSIDE BLOOD GLUCOSE READING OF 130. PATIENT DID NOT REQUIRE COVERAGE PER MD SLIDING SCALE. THE SCHEDULED 18 UNITS OF LANTUS WAS HELD DUE TO THE LONG ACTING NATURE OF THE INSULIN AND CURRENT BS READING
[2019-08-12] MEDS: INSULIN LANTUS 100 UNITS/ML 10 ML VIAL SUBQ SCH (20:18)
[2019-08-12] MEDS: ATORVASTATIN 20 MG TAB PO SCH (21:41)
--- NOTE | 2019-08-12 21:41 | NUR ---
ADMINISTERED 2100 MEDICATIONS TO PATIENT. PATIENT TOLERATED WELL. NO SIGNS OF DISTRESS NOTED. DURING ADMINISTRATION OF MEDICATION PATIENT COMPLAINED OF HEADACHE 6/10 BUT "GETTING WORSE." PATIENT REQUESTED A DIFFERENT MEDICATION FOR PAIN BECAUSE STATES NORCO JUST PUTS HER TO SLEEP BUT DOES NOT HELP WITH PAIN. I EXPLAINED THAT I WOULD NEED TO PAGE THE PHYSICIAN TO HAVE HIM REQUEST A CHANGE IN PAIN MEDICATION IF HE CHOOSES. PATIENT OPTED FOR NORCO FOR NOW AND CALL MD TO SEE IF ORDER CAN BE CHANGES FOR NEXT TIME.
[2019-08-12] MEDS: HYDROcodone/APAP 5/325 MG 1 TAB TAB PO PRN (21:46)
--- NOTE | 2019-08-12 21:46 | NUR ---
MD Shadi KING RETURNED PAGE. STATES DUE TO PATIENTS CURRENT MEDICATION ALLERGY LIST HE WOULD FEEL BEST TO KEEP PATIENT ON NORCO FOR PAIN. I EXPLAINED THE RESPONSE TO THE PATIENT AND SHE WAS OK WITH MD RESPONSE. NO FURTHER ACTION REQUIRED.
[2019-08-12 21:54] LABS: APPEARANCE,URINE CLEAR (CLEAR); BILIRUBIN,URINE NEGATIVE (NEGATIVE); BLOOD, URINE NEGATIVE (NEGATIVE); COLOR,URINE YELLOW (YELLOW); LEUKOCYTE ESTERASE ,URINE NEGATIVE (NEGATIVE); NITRITE, URINE NEGATIVE (NEGATIVE); UGLUCOSE NEGATIVE (NEGATIVE)
--- NOTE | 2019-08-12 23:13 | NUR ---
ROUNDING. PATIENT RESTING IN BED. NO SIGNS OF DISTRESS NOTED. RESPIRATIONS EVEN AND UNLABORED ON 2L O2 VIA NC. TELE MONITOR ATTACHED AND CALL LIGHT WITHIN REACH WILL CONTINUE TO MONITOR HER.
[2019-08-13] VITALS: BP 128/76
--- NOTE | 2019-08-13 00:10 | NUR ---
ROUNDING PATIENT RESTING. NO SIGNS OF DISTRESS NOTED. RESPIRATIONS EVEN AND UNLABORED ON 2L O2 VIA NC. TELE MONITOR ATTACHED AND CALL LIGHT WITHIN REACH. WILL CONTINUE TO MONITOR
[2019-08-13] MEDS: IPRATROPIUM 0.02% 0.5 MG/2.5 ML NEBU INH SCH ×4 (01:00→19:23)
--- NOTE | 2019-08-13 02:31 | NUR ---
ROUNDING, PATIENT RESTING. NO SIGNS OF DISTRESS NOTED. RESPIRATIONS EVEN AND UNLABORED. TELE MONITOR ATTACHED AND CALL LIGHT WITHIN REACH
[2019-08-13 04:00] VITALS: BP 146/94
[2019-08-13] MEDS: HYDROcodone/APAP 5/325 MG 1 TAB TAB PO PRN ×3 (04:33→16:33)
--- NOTE | 2019-08-13 04:33 | NUR ---
OBTAINED AM VITALS AND MEDICATED PATIENT FOR A COMPLAINT OF FUENTES 6/10 PAIN. PATIENT TOLERATED WELL NO SIGNS OF DISTRESS NOTED. WILL CONTINUE TO MONITOR
[2019-08-13] MEDS: BLOOD GLUCOSE MONITORING 1 DEV DEV FS SCH ×4 (05:57→20:32)
[2019-08-13] MEDS: INSULIN LISPRO SLIDING SCALE 100 UNITS/ML VIAL SUBQ PRN ×2 (05:58→12:21)
--- NOTE | 2019-08-13 06:00 | NUR ---
OBTAINED MORNING BS OF 226. ADMINISTERED INSULIN PER MD SLIDING SCALE. PATIENT TOLERATED WELL NO SIGNS OF DISTRESS NOTED. RESPIRATIONS EVEN AND UNLABORED ON 2L O2. TELE MONITOR ATTACHED AND CALL LIGHT WITHIN REACH WILL CONTINUE TO MONITOR
[2019-08-13 06:45] LABS: BASOPHILS # (AUTO) 0.1 K/uL (0.00-0.22); BASOPHILS % (AUTO) 1.8 % (0.0-2.0); EOSINOPHILS # (AUTO) 0.1 K/uL (0-0.4); EOSINOPHILS % (AUTO) 3.2 % (0.0-4.0); HEMATOCRIT 32.5 % (36-48); HEMOGLOBIN 9.9 g/dL (12.0-16.0); LYMPHOCYTES # (AUTO) 1.7 K/uL (2.5-16.5); LYMPHOCYTES % (AUTO) 36.7 % (20.5-51.1); MEAN CORPUSCULAR HEMOGLOBIN 22 pg (27-31); MEAN CORPUSCULAR HGB CONC 31 g/dL (33-37); MEAN CORPUSCULAR VOLUME 71.1 fL (80-94); MONOCYTES # (AUTO) 0.4 K/uL (0.8-1.0); MONOCYTES % (AUTO) 9.5 % (1.7-9.3); NEUTROPHILS # (AUTO) 2.2 K/uL (1.8-7.7); NEUTROPHILS % (AUTO) 48.8 % (42.2-75.2); PLATELET COUNT (AUTO) 196 K/uL (140-450); RED BLOOD CELL COUNT(AUTO) 4.57 MIL/uL (4.20-5.40); RED CELL DISTRIBUTION WIDTH 20.3 % (11.6-13.7); WHITE BLOOD COUNT (AUTO) 4.6 K/uL (4.8-10.8)
[2019-08-13 07:07] LABS: MAGNESIUM 1.5 mg/dL (1.8-2.4); PHOSPHORUS 4.3 mg/dL (2.5-4.9)
--- NOTE | 2019-08-13 07:18 | NUR ---
ENDORSED PATIENT TO DAYSHIFT NURSE AT BEDSIDE FOR CONTINUITY OF CARE.PT IN STABLE CONDITION
[2019-08-13 07:23] LABS: ANION GAP 5.5 (8-16); CARBON DIOXIDE 35.5 mmol/L (21-32); CREATININE 1.3 mg/dL (0.6-1.3)
--- NOTE | 2019-08-13 07:28 | NUR ---
RECEIVED REPORT FROM SPANISH TRANSLATOR NURSE FOR CONTINUITY OF CARE. PT IS AAOX4, CALM, COOPERATIVE, SKIN COLOR APPROPRIATE TO ETHNICITY, WARM TO TOUCH. SKIN INTACT. RESPIRATIONS EVEN, UNLABORED, ON O2 2L/MIN VIA NC. ABDOMEN SOFT, NON-DISTENDED. IV SITE INTACT, PATENT, ON SALINE LOCK. REVIEWED PLAN OF CARE WITH PATIENT. PATIENT VERBALIZED UNDERSTANDING. SAFETY MEASURES IN PLACE, CALL LIGHT WITHIN REACH, BED IN LOW POSITION. WILL MONITOR PT CLOSELY THROUGHOUT THE SHIFT.
[2019-08-13 08:00] VITALS: BP 140/86
--- NOTE | 2019-08-13 08:02 | NUR ---
PAGED TO NOTIFY THAT T MAG IS 1.5 EVEN THOUGH PT HAD MAG MEE YESTERDAY FRO MAG OF 1.5. PER MD, REPEAT MAG MEE 2GM FRO PT. ORDER PLACED.
--- NOTE | 2019-08-13 08:40 | NUR ---
ADMINISTERED MORNING MEDS TO PT. PT TOLERATED WELL. ALL NEEDS MET. WILL CONTINUE TO ROUND FREQUENTLY ON PT.
[2019-08-13] MEDS: CARVEDILOL 3.125 MG TAB PO SCH ×2 (08:59→16:33)
[2019-08-13] MEDS: GABAPENTIN 300 MG CAP PO SCH ×2 (08:59→20:33)
[2019-08-13] MEDS: LOSARTAN 50 MG TAB PO SCH (08:59)
[2019-08-13] MEDS: FUROSEMIDE 20 MG/2 ML VIAL IVP SCH ×2 (08:59→14:09)
--- NOTE | 2019-08-13 11:14 | NUR ---
PT RESTING IN BED WATCHING TV. ALL NEEDS MET. WILL CONTINUE TO ROUND FREQUENTLY ON PT.
[2019-08-13 12:00] VITALS: BP 136/80
[2019-08-13] MEDS ORDERED: MAG SULF 2000 MG/WATER PREMIX 50 ML IV SCH (12:00)
--- NOTE | 2019-08-13 13:13 | NUR ---
PT TALKING ON PHONE WITH FAMILY. ALL NEEDS MET. WILL CONTINUE TO ROUND FREQUENTLY ON PT.
--- NOTE | 2019-08-13 15:48 | NUR ---
PT SLEEPING. ALL NEEDS MET. ORDER DISPATCHER REPOSITIONING PT. PT TOLERATING WELL. ALL NEEDS MET. WILL CONTINUE TO ROUND ON PT.
[2019-08-13 16:00] VITALS: BP 133/77
--- NOTE | 2019-08-13 16:21 | NUR ---
PT BLOOD SUGAR 156. PT REFUSING HUMALOG INSULIN AT THIS TIME. WILL GIVE OTHER MEDS DUE.
--- NOTE | 2019-08-13 18:55 | NUR ---
PT RESTING IN BED. ALL NEEDS MET.
--- NOTE | 2019-08-13 19:30 | NUR ---
RECEIVED PATIENT ON ROOM AIR, PULSE OX SAT 96%. SCHEDULED BREATHING TREATMENT ADMINISTERED. TOLERATED TX WELL WITHOUT ADVERSE SIDE EFFECTS. NO ACUTE RESPIRATORY DISTRESS NOTED AT THIS TIME. PT MADE AWARE OF ORDERED MEDICATION FREQUENCY ADN INSTRUCTED TO CALL NEEDED FOR SOB. WILL CONTINUE TO MONITOR.
--- NOTE | 2019-08-13 19:32 | NUR ---
RECEIVED PT IN STABLE CONDITION FROM AM NURSE. AWAKE, ALERT AND ORIENTED X4. ON TELE MONITOR. WITH NO S/S OF ANY DISCOMFORT NOR PAIN NOTED. HL ON THE LT AC g#20 . CLEAR AND PATENT. PLAN OF CARE DISCUSSED AND VERBALIZED UNDERSTANDING. FREQ ROUNDS NEEDED. SIDE RAILS UP X2 AND CALL LIGHT PLACED WITHIN EASY REACH. INSTRUCTED TO CALL FOR ANY ASSISTANCE. WILL CONTINUE TO MONITOR.
[2019-08-13 20:00] VITALS: BP 147/93
[2019-08-13] MEDS: ATORVASTATIN 20 MG TAB PO SCH (20:34)
--- NOTE | 2019-08-13 20:35 | NUR ---
BLOOD SUGAR WAS CHECKED RESULT 150. NO COVERAGE BUT LANTUS ROUTINE TONIGHT GIVEN . PROVIDED WITH SOME SANDWICH. WILL CONTINUE TO MONITOR.
[2019-08-13] MEDS: INSULIN LANTUS 100 UNITS/ML 10 ML VIAL SUBQ SCH (20:39)
--- NOTE | 2019-08-13 22:30 | NUR ---
STILL AWAKE. WATCHING TV. NO C/O [place] DISCOMFORT NOTED.
--- NOTE | 2019-08-13 23:00 | NUR ---
PT COMPLAINED OF PAIN /DISCOMFORT ON LT AC IV ACCESS. DISCONTINUED AND STARTED A NEW IV ON LT HAND G#22. CLEAR AND PATENT.
[2019-08-14 00:30] VITALS: BP 150/93
--- NOTE | 2019-08-14 00:45 | NUR ---
PT ASLEEP. ON O22L NC. NO SOB NOTED. WILL CONTINUE TO MONITOR.
--- NOTE | 2019-08-14 02:00 | NUR ---
MADE ROUNDS. PT AWAKE. TELE MONITOR PATCH CHANGED.
[2019-08-14] MEDS: IPRATROPIUM 0.02% 0.5 MG/2.5 ML NEBU INH SCH ×4 (02:22→19:00)
[2019-08-14 04:29] VITALS: BP 153/96
[2019-08-14] MEDS: HYDROcodone/APAP 5/325 MG 1 TAB TAB PO PRN (04:31)
[2019-08-14] MEDS: ALBUTEROL 0.083% 2.5 MG/3 ML NEBU INH PRN (05:12)
--- NOTE | 2019-08-14 05:22 | NUR ---
PT COMPLAINS OF FEELING SOB. PRN BREATHING TX ADMINISTERED. TOLERATED TX WELL WITHOUT ADVERSE SIDE EFFECTS. NO ACUTE DISTRESS NOTED. WILL CONTINUE TO MONITOR.
[2019-08-14 06:29] LABS: ANION GAP 5.3 (8-16); CARBON DIOXIDE 34.6 mmol/L (21-32); CREATININE 1.1 mg/dL (0.6-1.3); POTASSIUM 3.9 mmol/L (3.5-5.1)
[2019-08-14] MEDS: BLOOD GLUCOSE MONITORING 1 DEV DEV FS SCH ×3 (06:50→17:24)
--- NOTE | 2019-08-14 06:50 | NUR ---
MADE ROUNDS. PT ASLEEP. NO S/S OF ANY DISTRESS NOTED.
[2019-08-14 06:57] LABS: MAGNESIUM 1.5 mg/dL (1.8-2.4); PHOSPHORUS 3.5 mg/dL (2.5-4.9)
[2019-08-14 07:25] LABS: BASOPHILS # (AUTO) 0.1 K/uL (0.00-0.22); BASOPHILS % (AUTO) 1.5 % (0.0-2.0); EOSINOPHILS # (AUTO) 0.1 K/uL (0-0.4); EOSINOPHILS % (AUTO) 1.8 % (0.0-4.0); HEMATOCRIT 31.6 % (36-48); HEMOGLOBIN 9.9 g/dL (12.0-16.0); LYMPHOCYTES # (AUTO) 1.1 K/uL (2.5-16.5); LYMPHOCYTES % (AUTO) 20.8 % (20.5-51.1); MEAN CORPUSCULAR HEMOGLOBIN 22 pg (27-31); MEAN CORPUSCULAR HGB CONC 31 g/dL (33-37); MEAN CORPUSCULAR VOLUME 70.8 fL (80-94); MONOCYTES # (AUTO) 0.5 K/uL (0.8-1.0); MONOCYTES % (AUTO) 8.9 % (1.7-9.3); NEUTROPHILS # (AUTO) 3.5 K/uL (1.8-7.7); PLATELET COUNT (AUTO) 187 K/uL (140-450); RED BLOOD CELL COUNT(AUTO) 4.46 MIL/uL (4.20-5.40); RED CELL DISTRIBUTION WIDTH 20.6 % (11.6-13.7); WHITE BLOOD COUNT (AUTO) 5.2 K/uL (4.8-10.8)
--- NOTE | 2019-08-14 07:28 | NUR ---
RECEIVED REPORT FROM PARCEL CARRIER NURSE HAO-RN. PT AOX4, ON 2L/NC, WITH LEFT HAND #22G/HEPLOCK. DISCUSSED PLAN OF CARE AND PT VERBALIZED UNDERSTANDING. NO S/S OF RESPIRATORY DISTRESS OR DISCOMFORT NOTED AT THIS TIME. WILL CONTINUE TO MONITOR.
--- NOTE | 2019-08-14 07:28 | NUR ---
ENDORSED PT IN STABLE CONDITION TO AM NURSE FOR CONTINUITY OF CARE.
[2019-08-14 08:00] VITALS: BP 126/76
[2019-08-14] MEDS: FUROSEMIDE 20 MG/2 ML VIAL IVP SCH ×2 (08:26→14:45)
[2019-08-14] MEDS: CARVEDILOL 3.125 MG TAB PO SCH ×2 (08:27→17:24)
[2019-08-14] MEDS: GABAPENTIN 300 MG CAP PO SCH (08:27)
[2019-08-14] MEDS: LOSARTAN 50 MG TAB PO SCH (08:27)
--- NOTE | 2019-08-14 08:27 | NUR ---
SCHEDULED MEDICATIONS GIVEN AND TOLERATED WELL. NO S/S OF RESPIRATORY DISTRESS OR DISCOMFORT NOTED AT THIS TIME. WILL CONTINUE TO MONITOR.
--- NOTE | 2019-08-14 11:30 | NUR ---
BLOOD GLUCOSE 193- WILL ADMINISTER INSULIN COVERAGE.
[2019-08-14 12:00] VITALS: BP 139/96
[2019-08-14] MEDS ORDERED: MAG SULF 2000 MG/WATER PREMIX 100 ML IV SCH (12:00)
[2019-08-14] MEDS ORDERED: ATOR20TA40 PO (12:36)
[2019-08-14] MEDS ORDERED: LOSA50TA1 PO (12:36)
--- NOTE | 2019-08-14 12:44 | NUR ---
MAG RIDDER STARTED. PT TOLERATING WELL. NO S/S OF RESPIRATORY DISTRESS OR DISCOMFORT NOTED AT THIS TIME. WILL CONTINUE TO MONITOR.
[2019-08-14] MEDS: INSULIN LISPRO SLIDING SCALE 100 UNITS/ML VIAL SUBQ PRN ×2 (12:54→17:25)
--- NOTE | 2019-08-14 12:54 | NUR ---
INSULIN COVERAGE GIVEN. MAG-RIDDER CAUSING PAIN AND RATE WAS DECREASED TO 20ML/HR. ICE PACK GIVEN AND TOLERATING WELL. WILL CONTINUE TO MONITOR.
--- NOTE | 2019-08-14 14:45 | NUR ---
SCHEDULED MEDICATION LASIX GIVEN AND TOLERATED WELL. PT TOLERATING MAGNESIUM RIDDER WELL AND INCREASED TO 21ML/HR. NO S/S OF RESPIRATORY DISTRESS OR DISCOMFORT NOTED AT THIS TIME. WILL CONTINUE TO MONITOR.
[2019-08-14 16:00] VITALS: BP 151/96
--- NOTE | 2019-08-14 16:14 | NUR ---
SECOND BACK OF MAG RIDDER STARTED. PT RESTING IN BED. NO S/S OF RESPIRATORY DISTRESS OR DISCOMFORT NOTED AT THIS TIME. WILL CONTINUE TO MONITOR.
--- NOTE | 2019-08-14 16:27 | NUR ---
08/14/19 RD INITIAL ASSESSMENT COMPLETED PLEASE REFER TO NUTRITION ASSESSMENT UNDER CARE ACTIVITY FOR ESTIMATED NUTRITIONAL NEEDS. 1. CONTINUE CARDIAC AND CCHO 60GM DIET TOLERATED 2. RD PROVIDED PATIENT WITH RECOMMENDATIONS TO REDUCE SATURATED FAT INTAKE AND SODIUM INTAKE 3. RD TO FOLLOW-UP 3-5 DAYS, MODERATE RISK NKECHI TODD, RD
--- NOTE | 2019-08-14 17:25 | NUR ---
SCHEDULED MEDICATION COREG GIVEN AND TOLERATED WELL. INSULIN COVERAGE ALSO GIVEN AND TOLERATED WELL. NO S/S OF RESPIRATORY DISTRESS OR DISCOMFORT NOTED AT THIS TIME. WILL CONTINUE TO MONITOR.
--- NOTE | 2019-08-14 19:27 | NUR ---
RECEIVED BEDSIDE REPORT FROM DAY SHIFT NURSESHAWN. PT IN STABLE CONDITION. AWAKE, ALERT AND ORIENTED X4. ON TELE MONITOR. WITH NO S/S OF ANY DISCOMFORT NOR PAIN NOTED. IV SITE ON THE LAC G20. PATENT AND INTACT. WAITING FOR MAG LAB RESULT. IF IT IS WITHIN NORMAL RANGE, PT WILL BE DISCHARGE. SIDE RAILS UP X2 AND CALL LIGHT PLACED WITHIN REACH.
[2019-08-14 20:20] VITALS: BP 123/90
--- NOTE | 2019-08-14 20:30 | NUR ---
MAG 2.3, WITHIN NORMAL RANGE. INFORMED PT AND GOT SIGNATURE ON DISCHARGE DOCUMENT. GIVEN DISCHARGE EDUCATION. EXPLAINED PRESCRIPTION AND FOLLOW UP APPOINTMENT. PT VERBALIZED UNDERSTANDING.
--- NOTE | 2019-08-14 21:15 | NUR ---
FAMILY CAME IN FRONT OF MAIN LOBBY. REMOVED IV, TELEMONITOR, NAME ID BAND. JOHNSON CRUZ TOOK PATIENT TO MAIN LOBBY USING WHEELCHAIR. PT LEFT.
== END 2019-08-14 21:20 | disposition home or self-care (01) | DRG 469 ==
LOC: MED 23:27 → MTU 08-11 01:37
PROVIDERS: ADMIT Preventive Medicine Preventive Medicine/Occupational Environmental Medicine; ATTEND Preventive Medicine Preventive Medicine/Occupational Environmental Medicine
DX: N17.9 Acute kidney failure, unspecified (principal); J96.00 Acute respiratory failure, unspecified whether with hypoxia or hypercapnia; I21.A1 Myocardial infarction type 2; E83.42 Hypomagnesemia; E11.21 Type 2 diabetes mellitus with diabetic nephropathy; I42.8 Other cardiomyopathies; E11.65 Type 2 diabetes mellitus with hyperglycemia; J44.1 Chronic obstructive pulmonary disease with (acute) exacerbation; N18.3 Chronic kidney disease, stage 3 (moderate); I13.0 Hypertensive heart and chronic kidney disease with heart failure and stage 1 through stage 4 chronic kidney disease, or unspecified chronic kidney disease; J45.901 Unspecified asthma with (acute) exacerbation; E11.22 Type 2 diabetes mellitus with diabetic chronic kidney disease; E83.52 Hypercalcemia; I50.9 Heart failure, unspecified; E87.70 Fluid overload, unspecified; I25.10 Atherosclerotic heart disease of native coronary artery without angina pectoris; E78.5 Hyperlipidemia, unspecified; D64.9 Anemia, unspecified; D72.819 Decreased white blood cell count, unspecified; Z98.51 Tubal ligation status; Z88.6 Allergy status to analgesic agent; Z88.8 Allergy status to other drugs, medicaments and biological substances; Z79.899 Other long term (current) drug therapy; Z79.4 Long term (current) use of insulin
CPT/HCPCS: 36415; 71045; 80048; 80053; 81003; 82043; 82550; 82553; 82570; 82948; 83690; 83735; 83880; 84100; 84484; 85025; 85651; 87081; 93005; 94640; 96374; 96375; 96376; 99285; J1815; J1940; J2270; J2405; J3475; J7613; J7644; Q0092

== ENCOUNTER 2019-08-17 13:57 | Inpatient (IN) | payer MEDICAID, SELFPAY ==
[~2019-08-17] VITALS: Ht 172.7 cm; Wt 123.8 kg
[~2019-08-17 13:57] MED LIST changes: +ATOR20TA40 PO; +LOSA50TA1 PO
--- NOTE | 2019-08-17 14:04 | NUR ---
Patient ambulated to bed 6. RN evaluating patient at bedside.
[2019-08-17 14:06] VITALS: BP 170/110
--- NOTE | 2019-08-17 14:14 | NUR ---
Dr. Holguin is evaluating the patient at bedside.
--- NOTE | 2019-08-17 14:20 | NUR ---
PHLEB at bedside for blood draw.
--- NOTE | 2019-08-17 14:20 | NUR ---
PT C/O SOB, NAUSEA, AND LEFT-SIDED CP RADIATING TO LEFT SHOULDER SINCE THIS MORNING. PT STATES SHE IS NOT ABLE TO SLEEP DURING NIGHT TIME DUE TO THE SEVERE SOB AND SHE HAS TO SIT UP TO EASE SOB. PT DENIES COUGH, FEVER, ABDOMINAL PAIN, DIARRHEA OR VOMITING. SECONDARY TO CHF EXACERBATION. +3 PITTING EDEMA ON BILATERAL LOWER EXTREMITIES NOTICED UPON ASSESSMENT. PATIENT STATES PAIN OF 10/10 AT THIS TIME; VSS; PATIENT POSITIONED FOR COMFORT; HOB ELEVATED; BEDRAILS UP X2; BED DOWN. ER MD MADE AWARE OF PT STATUS. PT IS ON THE MONITOR.
[2019-08-17 14:38] LABS: BASOPHILS # (AUTO) 0.1 K/uL (0.00-0.22); EOSINOPHILS # (AUTO) 0.2 K/uL (0-0.4); EOSINOPHILS % (AUTO) 2.8 % (0.0-4.0); HEMATOCRIT 33.5 % (36-48); HEMOGLOBIN 10.3 g/dL (12.0-16.0); LYMPHOCYTES % (AUTO) 32.2 % (20.5-51.1); MEAN CORPUSCULAR HEMOGLOBIN 22 pg (27-31); MEAN CORPUSCULAR HGB CONC 31 g/dL (33-37); MEAN CORPUSCULAR VOLUME 71.3 fL (80-94); MONOCYTES # (AUTO) 0.4 K/uL (0.8-1.0); MONOCYTES % (AUTO) 5.8 % (1.7-9.3); NEUTROPHILS # (AUTO) 3.6 K/uL (1.8-7.7); NEUTROPHILS % (AUTO) 58.2 % (42.2-75.2); PLATELET COUNT (AUTO) 232 K/uL (140-450); RED CELL DISTRIBUTION WIDTH 20.5 % (11.6-13.7); WHITE BLOOD COUNT (AUTO) 6.2 K/uL (4.8-10.8)
--- NOTE | 2019-08-17 14:42 | NUR ---
X-Ray at bedside.
[2019-08-17] MEDS ORDERED: FUROSEMIDE 40 MG/4 ML VIAL IVP ONE (14:45)
[2019-08-17 14:53] LABS: ALBUMIN 2.8 g/dL (3.4-5.0); CARBON DIOXIDE 29.7 mmol/L (21-32); CREATININE 1.1 mg/dL (0.6-1.3); POTASSIUM 3.7 mmol/L (3.5-5.1); TOTAL BILIRUBIN 0.6 mg/dL (0.0-1.0)
[2019-08-17] MEDS ORDERED: MORPHINE SULFATE 4 MG/ML SYR IVP ONE ×2 (15:20→17:30)
[2019-08-17] MEDS ORDERED: hydrALAZINE 20 MG/ML VIAL IVP ONE (16:10)
--- NOTE | 2019-08-17 16:29 | NUR ---
PT IS RESTING IN THE BED. BP 161/103 MMHG AFTER 10MH HYDRALAZINE IV PUSH. WILL CONTINUE MONITOR PT'S VITAL SIGNS.
--- NOTE | 2019-08-17 17:26 | NUR ---
pt states she has 10/[address] Holguin notified.
--- NOTE | 2019-08-17 17:58 | NUR ---
PT IS EATING CARDIAC DINNER IN THE BED.
--- NOTE | 2019-08-17 18:40 | NUR ---
RECEIVED PATIENT FROM ED NURSE FOR CONTINUITY OF CARE. PATIENT IS AAOX4, FAROESE SPEAKING. RESPIRATIONS EVEN AND UNALBORED, ON 2L O2 VIA NC. CC: SOB. DENIES SOB AT THIS TIME. PATIENT HAS HX OF ASTHMA AND COPD. VISIBLE CHEST RISE AND FALL NOTED. DX OF CHF. PATIENT HAS HX OF HTN, CHF. ON TELE MONITORING. SKIN WARM, DRY, AND INTACT. IV ON THE RIGHT HAND G22, SALINE LOCK. PATIENT IS AMBULATORY WITH ASSIST/WALKER. BED IN LOW POSITION. CALL LIGHT IS WITHIN REACH. WILL CONTINUE TO MONITOR.
--- NOTE | 2019-08-17 18:40 | NUR ---
Patient will be admitted to care of CHF. Admited to TELEMTERY. Will go to room 121B. Belongings list completed. Report to BELINDA LEVIN.
--- NOTE | 2019-08-17 18:47 | NUR ---
MRSA NARES SWAB COLLECTED. PATIENT TOLERATED WELL. VS CHECKED. Addendum: 08/17/19 at 1901 by Princess Myra Hernandez RN BP 178/121, HR 116, O2SAT 98% ON 2L O2 VIA NC, RESP 20, TEMP 98.4.
--- NOTE | 2019-08-17 18:52 | NUR ---
PAGED DR. Shadi KING FOR ORDERS. BP IS HIGH 171/120, HR 116. WILL WAIT FOR CALL BACK
[2019-08-17] MEDS ORDERED: cloNIDine 0.1 MG TAB PO PRN (19:15)
--- NOTE | 2019-08-17 19:15 | NUR ---
RECEIVED ORDER FROM A PALIWAL, CLONIDINE 0.1 MG PO PRN Q6H FOR ELEVATED BP. WILL CARRY OUT ORDER
--- NOTE | 2019-08-17 19:29 | NUR ---
ENDORSED TO MACHINE TOOL REBUILDER NURSE FOR CONTINUITY OF CARE, REPORTED NEW ORDER FROM A PALIWAL FOR CLONIDINE. SITTING UP IN BED ON 2L NC.
[2019-08-17 19:45] VITALS: BP 168/113
[2019-08-17] MEDS ORDERED: DEXTROSE 50% 50 ML SYR IVP PRN ×2 (21:15→23:15)
[2019-08-17] MEDS ORDERED: INSULIN LISPRO SLIDING SCALE 100 UNITS/ML VIAL SUBQ PRN (21:15)
--- NOTE | 2019-08-17 21:30 | NUR ---
PAGED DR KING EARLIER TO OBTAIN AN ORDER FOR BLOOD SUGAR CHECK AND INSULIN COVERAGE. DR KING CALLED BACK AND SPOKE WITH HIM. NEW ORDERS GIVEN AND WILL CARRY IT OUT.
--- NOTE | 2019-08-17 21:55 | NUR ---
PATIENT BLOOD PRESSURE STILL HIGH AFTER GIVING CLONIDINE 0.1MG . BP IS 163/106. PAGED DR KING AGAIN TO NOTIFY MD OF THE PATIENT BP AND TO GET AN ORDER TO RESUME THE PATIENT HOME MEDICATIONS. SPOKE WITH MD AND NEW ORDERS GIVEN AND CARRIED OUT. WILL CONTINUE POC AND MONITORING.
[2019-08-17] MEDS ORDERED: HYDROcodone/APAP 5/325 MG 1 TAB TAB PO PRN (22:00)
[2019-08-17] MEDS ORDERED: BLOOD GLUCOSE MONITORING 1 DEV DEV FS SCH ×2 (22:00)
--- NOTE | 2019-08-17 22:03 | NUR ---
RECEIVED REPORT FROM AM RN REGARDING THE PATIENT. RECEIVED PATIENT A/A/OX4,SITTING UP IN BED WATCHING TV. PATIENT DENIES ANY PAIN,CHEST PAIN AND SOB AT THIS TIME. ON 2L/NC [id number] PATIENT ABLE TO WALKED IN THE BATHROOM WITH NO ASSISTANCE. ADMISSION HISTORY OBTAINED FROM THE PATIENT. ST WITH BBB ON DISABILITY HEARING OFFICER,HR-112. ORIENTED THE PATIENT TO THE ROOM SETTING AND USE OF CALL LIGHT SYSTEM. FALL PRECAUTION IMPLEMENTED. INSTRUCTED TO CALL FOR ASSISTANCE AT ALL TIMES. PATIENT VERBALIZED UNDERSTANDING WITH THE PLAN OF CARE. CALL LIGHT WITHIN REACH. WILL CONTINUE MONITORING AND POC.
[2019-08-17] MEDS ORDERED: ONDANSETRON 4 MG/2 ML VIAL IVP PRN (23:15)
[2019-08-17] MEDS ORDERED: LORazepam 2 MG/ML VIAL IVP PRN (23:15)
[2019-08-17] MEDS ORDERED: ALBUTEROL 0.083% 2.5 MG/3 ML NEBU INH PRN (23:15)
[2019-08-17] MEDS ORDERED: ACETAMINOPHEN 325 MG TAB PO PRN (23:15)
[2019-08-17] MEDS: CARVEDILOL 3.125 MG TAB PO SCH (23:23)
[2019-08-17] MEDS: ATORVASTATIN 20 MG TAB PO SCH (23:23)
[2019-08-17] MEDS: HYDROcodone/APAP 5/325 MG 1 TAB TAB PO PRN (23:26)
[2019-08-17] MEDS: INSULIN LANTUS 100 UNITS/ML 10 ML VIAL SUBQ SCH (23:26)
[2019-08-18 00:12] LABS: CREATINE KINASE MB 0.8 ng/mL (0-3.6)
[2019-08-18 00:37] VITALS: BP 123/84
--- NOTE | 2019-08-18 00:37 | NUR ---
LATEST BP TAKEN 123/84,HR-90. NO C/O ANY PAIN NOTED.
--- NOTE | 2019-08-18 02:30 | NUR ---
PT WOKE UP AND ASKED FOR ICE CHIPS. PLACED PT ON FLUID RESTRICTION. PT AWARE AND COMPLIANT SO FAR. NO COMPALIN AT THIS TIME. CALL LIGHT WITHIN REACH. WILL CONTINUE POC AND MONITORING.
--- NOTE | 2019-08-18 03:00 | NUR ---
SCD MACHINE TO BLE APPLIED ORDERED. PT AWARE OF THE PURPOSE/BENEFIT OF THE MACHINE.
[2019-08-18 04:00] VITALS: BP 125/80
[2019-08-18] MEDS: HYDROcodone/APAP 5/325 MG 1 TAB TAB PO PRN (04:31)
--- NOTE | 2019-08-18 04:45 | NUR ---
CHECKED PT VS EARLIER AND PT COMPLAINED THAT SHE HAS A HEADACHE 12/04. PRN NORCO GIVEN ORDERED. WILL RE ASSESS PATIENT PAIN IN AN HOUR.
--- NOTE | 2019-08-18 05:31 | NUR ---
PT ASLEEP AND EASILY TO AROUSED. REASSESSED THE PT PAIN AND STATED THAT HER PAIN IS 0/10. SAFETY PRECAUTION IMPLEMENTED.
[2019-08-18 06:01] LABS: BASOPHILS # (AUTO) 0.1 K/uL (0.00-0.22); BASOPHILS % (AUTO) 1.8 % (0.0-2.0); EOSINOPHILS # (AUTO) 0.3 K/uL (0-0.4); EOSINOPHILS % (AUTO) 5.5 % (0.0-4.0); HEMATOCRIT 31.2 % (36-48); HEMOGLOBIN 9.6 g/dL (12.0-16.0); LYMPHOCYTES # (AUTO) 1.6 K/uL (2.5-16.5); LYMPHOCYTES % (AUTO) 33.3 % (20.5-51.1); MEAN CORPUSCULAR HEMOGLOBIN 22 pg (27-31); MEAN CORPUSCULAR HGB CONC 31 g/dL (33-37); MEAN CORPUSCULAR VOLUME 71.1 fL (80-94); MONOCYTES # (AUTO) 0.4 K/uL (0.8-1.0); MONOCYTES % (AUTO) 7.9 % (1.7-9.3); NEUTROPHILS # (AUTO) 2.4 K/uL (1.8-7.7); NEUTROPHILS % (AUTO) 51.5 % (42.2-75.2); PLATELET COUNT (AUTO) 193 K/uL (140-450); RED CELL DISTRIBUTION WIDTH 21.1 % (11.6-13.7); WHITE BLOOD COUNT (AUTO) 4.7 K/uL (4.8-10.8)
[2019-08-18] MEDS: BLOOD GLUCOSE MONITORING 1 DEV DEV FS SCH ×4 (06:12→21:30)
[2019-08-18 06:18] LABS: ANION GAP 7.2 (8-16); CARBON DIOXIDE 34.1 mmol/L (21-32); CREATININE 1.2 mg/dL (0.6-1.3); POTASSIUM 3.3 mmol/L (3.5-5.1)
[2019-08-18 06:23] LABS: MAGNESIUM 1.3 mg/dL (1.8-2.4); PHOSPHORUS 4.6 mg/dL (2.5-4.9)
--- NOTE | 2019-08-18 06:28 | NUR ---
CHECKED THE PATIENT BLOOD SUGAR, 145. NO SLIDING SCALE INSULIN NEEDED PER ORDER.CALL LIGHT WITHIN REACH.
[2019-08-18] MEDS: IPRATROPIUM 0.02% 0.5 MG/2.5 ML NEBU INH SCH ×3 (06:48→19:32)
--- NOTE | 2019-08-18 06:48 | NUR ---
PAGED DR KING TO NOTIFY MD OF THE PATIENT ABNORMAL LAB RESULTS FOR TODAY. SPOKE WITH THE EXCHANGE AND AWAITING FOR MD TO CALL BACK.
--- NOTE | 2019-08-18 07:25 | NUR ---
ENDORSED THE PATIENT TO THE ONCOMING RN FOR CONTINUITY OF CARE. PT AWAKE AND LAYING IN BED. NOT IN ANY DISTRESS. NO COMPLAIN OF ANYTHING FROM THE PATIENT AT THIS TIME. UNEVENTFUL SHIFT THROUGHOUT THE NIGHT. ENDORSED TO AM RN THAT WE PAGED DR KING REGARDING THE PATIENT LATEST LAB RESULTS THIS MORNING.ALL NEEDS ATTENDED. CALL LIGHT WITHIN REACH. SIGNING OFF.
--- NOTE | 2019-08-18 07:25 | NUR ---
RECEIVED BEDSIDE REPORT FROM PM RN. PT IS AWAKE IN BED, AAOX4 SPEAKS [place]EN[place], ABLE TO MAKE NEEDS KNOWN. PT IS ON 2LPM O2 VIA NC, RESPIRATION EVEN AND UNLABORED, WITHOUT ANY SIGN AND SYMPTOMS OF ACUTE DISTRESS. IV SITE AT RIGHT HAND 22 GAUGE, DRY, INTACT, SALINE LOCKED. SKIN IS DRY AND INTACT. PT IS AMBULATORY AND CONTINENT. BED IN LOW, BED LOCKED. FALL PRECAUTION AND SAFETY MEASURES IN PLACE. CALL LIGHT WITHIN REACH. TELE MONITOR IN PLACE. WILL CONTINUE TO MONITOR.
[2019-08-18 08:00] VITALS: BP 128/88
[2019-08-18] MEDS ORDERED: FUROSEMIDE 40 MG TAB PO SCH (09:00)
[2019-08-18] MEDS: GABAPENTIN 300 MG CAP PO SCH ×2 (09:24→21:27)
[2019-08-18] MEDS: LOSARTAN 50 MG TAB PO SCH (09:25)
[2019-08-18] MEDS: CARVEDILOL 3.125 MG TAB PO SCH ×2 (09:25→21:27)
--- NOTE | 2019-08-18 09:30 | NUR ---
CHECKED BP PRIOR TO MED ADMINISTER, BP 136/99, MAP 111, PULSE 79, ADMINISTERED SCHEDULED MEDS, MEDS EDUCATION PROVIDED TO PT, PT VERBALIZED UNDERSTANDING. PT TOLERATED PO MEDS WELL. PT AWAKE AND RESTING ON BED AT THIS TIME. ALL NEEDS MET. NO SIGNS OF DISTRESS NOTED. TELE MONITOR ATTACHED. SAFETY MEASURES IN PLACE.
--- NOTE | 2019-08-18 09:37 | NUR ---
DR FERNANDO Vela IS TALKING TO PT AT BEDSIDE.
--- NOTE | 2019-08-18 09:39 | NUR ---
INFORMED DR FERNANDO Hsu THAT MAG IS 1.3L AND K 3.3L FROM AM LAB. DR KING WAS AWARE AND SAID HE WILL INPUT ORDER.
--- NOTE | 2019-08-18 11:03 | NUR ---
US TECH IS DOING U/S LOW EXTREMITIES AT BEDSIDE. NO SIGNS OF DISTRESS NOTED. TELE MONITOR ATTACHED.
[2019-08-18 12:00] VITALS: BP 131/90
--- NOTE | 2019-08-18 12:00 | NUR ---
CHECKED VITAL SIGNS, ALL WITHIN NORMAL LIMIT. CHECKED BLOOD GLUCOSE LEVEL, 165. NO INSULIN COVERAGE IS NEEDED. PT IS TALKING ON THE PHONE, ALERT AND ORIENTED. NO SIGN OF ACUTE DISTRESS NOTED. CALL LIGHT WITHIN REACH. TELE MONITOR ATTACHED. BED IS LOCKED, IN LOW POSITION. SAFETY MEASURE IN PLACE. Addendum: 08/18/19 at 1318 by Valarie Connelly RN 2 UNIT OF HUMALOG GIVEN.
--- NOTE | 2019-08-18 12:30 | NUR ---
OBTAINED CONSENT FOR CT ANGIO CHEST, AND COMPLETED QUESTIONNAIRE. PT REQUESTED TO CHANGE HER LUNCH TRAY, CALLED [facility] AND SWITCHED GRILLED CHICKEN WITH GRAVEY. PT IS TALKING ON HER PHONE AT THIS TIME. NO SIGNS OF DISTRESS NOTED. TELE MONITOR ATTACHED. SAFETY MEASURES IN PLACE.
--- NOTE | 2019-08-18 12:47 | NUR ---
DR JORDAN IS TALKING TO PATIENT AT BEDSIDE. NO SIGNS OF DISTRESS. TELE MONITOR ATTACHED.
[2019-08-18] MEDS ORDERED: POTASSIUM CHLORIDE 10 MEQ TABER PO SCH (12:50)
[2019-08-18] MEDS ORDERED: FUROSEMIDE 40 MG/4 ML VIAL IVP SCH (12:54)
[2019-08-18] MEDS: INSULIN LISPRO SLIDING SCALE 100 UNITS/ML VIAL SUBQ PRN ×3 (12:55→21:32)
[2019-08-18] MEDS ORDERED: MAG SULF 2000 MG/WATER PREMIX 50 ML IV SCH (13:00)
--- NOTE | 2019-08-18 13:10 | NUR ---
ADMINISTERED MEDS PER MD ORDER, MEDS ED PROVIDED, AND PT TOLERATED WELL. PT IS EATING LUNCH, ADMINISTERED 2 UNITS OF HUMALOG FOR BG 165. NO SIGNS OF DISTRESS NOTED. TELE MONITOR ATTACHED. SAFETY MEASURES IN PLACE.
--- NOTE | 2019-08-18 14:20 | NUR ---
ATTEMPTED TO START IV ON AC, TRIED TWICE, UNABLE TO ESTABLISH. WILL RE-ATTEMPT AGAIN. ASSISTED PT TO GO BATHROOM AND WENT BACK ON BED SAFELY. PT IS TALKING ON HER CELLPHONE, NO SIGNS OF DISTRESS NOTED. TELE MONITOR ATTACHED.SAFETY MEASURES IN PLACE.
--- NOTE | 2019-08-18 14:45 | NUR ---
IV INFILTRATED ON R HAND, REMOVED IV AND CANNULA INTACT, NO BLEEDING ON IV SITE.
--- NOTE | 2019-08-18 15:38 | NUR ---
PT IS SLEEP ON BED AT THIS TIME. RESPIRATION EVEN AND UNLABORED, VISIBLE CHEST RISE AND FALL NOTED. NO SIGN OF DISTRESS. ROLLS MILL OPERATOR ATTEMPTED TO START IV ON LEFT AC, NOT SUCCEED. CALL ED AND AWAITING FOR ED NURSE TO START IV. CALL LIGHT WITHIN PT'S REACH. BED LOCKED, IN LOW POSITION. TELE MONITOR ATTACHED. ALL SAFETY MEASURE IN PLACE.
--- NOTE | 2019-08-18 15:55 | NUR ---
ED RN HOLLEY STARTED IV ON RAC 20G, CONTINUE INFUSING MAG RIDER AT 25 ML/HR. CALLED [facility] DEPT AND TALK TO RAD FREELANCE MAKEUP ARTIST THAT IV ESTABLISHED AND CONSENT SIGNED. PER TECH, HE HAS SOME PTS FROM ED, ONCE HE FINISHES HE WILL GET PT SOON HE CAN. PT IS AWAKE AND RESTING ON BED. NO SIGNS OF DISTRESS NOTED. TELE MONITOR ATTACHED. SAFETY MEASURE IN PLACE.
[2019-08-18 16:00] VITALS: BP 136/97
[2019-08-18] MEDS: FUROSEMIDE 40 MG/4 ML VIAL IVP SCH (17:02)
--- NOTE | 2019-08-18 17:14 | NUR ---
CHECKED BP AND 132/88, MAP 99, PULSE 79. CHECKED BG AND RECEIVED 159. ADMINISTERED SCHEDULED MED LASIX VIA IVP PER MD ORDER, MED ED PROVIDED AND PT VERBALIZED UNDERSTANDING. WILL ADMINISTER INSULIN COVERAGE WHEN DINNER ARRIVES. PT COMPLAINED 9/10 SHOULDER PAIN, AND STATED "NORCO DOESN'T HELP AND I NEED SOME IV MED." REPOSITIONED AND TAUGHT RELAXATION TECHNIQUE, AND SHE SAID, " THE PAIN DIDN'T GO AWAY." WILL MEDICATED FOR PAIN. PT IS RESTING ON BED AT THIS TIME. TELE MONITOR ATTACHED. SAFETY MEASURES IN PLACE.
[2019-08-18] MEDS: MORPHINE SULFATE 2 MG/ML SYR IVP PRN ×2 (17:32→22:24)
--- NOTE | 2019-08-18 17:33 | NUR ---
ASSISTED PT TO BATHROOM AND BACK ON BED SAFELY. SCD ON BILATERALLY. MEDICATED WITH PRN MORPHINE VIA IVP FOR 9/10 PAIN, MED ED PROVIDED AND PT VERBALIZED UNDERSTANDING. PT IS TALKING ON HER PHONE AT THIS TIME. NO ACUTE DISTRESS NOTED. TELE MONITOR ATTACHED. SAFETY MEASURES IN PLACE.
--- NOTE | 2019-08-18 17:38 | NUR ---
DINNER ARRIVES. ADMINISTERED 2 UNIT OF HUMALOG FOR BG 159, MED ED PROVIDED. PT IS TALKING ON HER CELLPHONE AT THIS TIME. NO SIGNS OF DISTRESS NOTED. TELE MONITOR ATTACHED. SAFETY MEASURES IN PLACE.
--- NOTE | 2019-08-18 18:00 | NUR ---
CALLED CT SCAN [phone] ANGIO CHEST 2X, NO ONE ANSWER AND NO MAIL BOX SET UP.
--- NOTE | 2019-08-18 19:07 | NUR ---
ENDORSED PT TO [place] STILL OPERATOR RN AT BEDSIDE. PT IS TALKING ON THE PHONE. PT IS IN STABLE CONDITION. SAFETY MEASURE IN PLACE.
--- NOTE | 2019-08-18 19:20 | NUR ---
RECEIVED PT IN STABLE CONDITION FROM A M NURSE. ON TELE MONITOR. WITH O2 2L/NC . NO SOB NOTED. NO C/O ANY DISCOMFORT NOR PAIN NOTED AT THIS TIME. CAN BE BRP WITH STANDBY ASSIST. HAS HL ON THE RT AC G#20 . FLUSHED WITH NS 10 ML . CLEAR AND PATENT. BED ON LOW POSITION. SIDE RAILS UP X2/ CALL LIGHT PLACED WITHIN EASY REACH. PLAN OF CARE DISCUSSED AND VERBALIZED UNDERSTANDING. WILL CONTINUE TO MONITOR.
--- NOTE | 2019-08-18 19:40 | NUR ---
RECEIVED PATIENT ON 2L NASAL CANNULA, PULSE OX SAT 100%. SCHEDULED BREATHING TREATMENT ADMINISTERED. TOLERATED TX WELL WITHOUT ADVERSE SIDE EFFECTS. PT MADE AWARE OF ORDERED MEDICATION FREQUENCY AND INSTRUCTED TO CALL NEEDED FOR SOB. NO ACUTE RESPIRATORY DISTRESS NOTED AT THIS TIME. WILL CONTINUE TO MONITOR.
--- NOTE | 2019-08-18 19:40 | NUR ---
SYSTEMS CHECKOUT MECHANIC CALLED REGARDING CT ANGIO CHEST WIT CONTRAST. PT JUST HAD A REGINA CRACKERS . TECH MADE AWARE, NEEDED TO BE NPO FOR 1 HOUR. INSTRUCTED PT NOT TO TAKE ANYTHING FOR THE TEST. VERBALIZED UNDERSTANDING.
[2019-08-18 20:00] VITALS: BP 141/90
--- NOTE | 2019-08-18 20:50 | NUR ---
PICKED UP BY RUBBER CALENDER HELPER BY WHEELCHAIR AND O2 2L/NC. IV ACCESS CLEAR AND PATENT ON THE RT AC G#20. .
--- NOTE | 2019-08-18 21:10 | NUR ---
BACK FROM CT DEPT BY WHEELCHAIR. WILL FOLLOW UP RESULT OF CT ANGIO /CHEST WITH CONTRAST.
[2019-08-18] MEDS: ATORVASTATIN 20 MG TAB PO SCH (21:27)
[2019-08-18] MEDS: INSULIN LANTUS 100 UNITS/ML 10 ML VIAL SUBQ SCH (21:31)
--- NOTE | 2019-08-18 21:32 | NUR ---
BLOOD SUGAR WAS CHECKED RESULT 156. INSULIN COVERAGE GIVEN AND PROVIDED WITH SOME SNACK , SANDWICH REQUESTED.
[2019-08-19] VITALS: BP 142/89
[2019-08-19 00:07] LABS: CREATINE KINASE MB 0.9 ng/mL (0-3.6)
--- NOTE | 2019-08-19 00:30 | NUR ---
MADE ROUNDS. ASLEEP. NO S/S OF ANY DISCOMFORT NOTED.
--- NOTE | 2019-08-19 01:45 | NUR ---
SCHEDULED BREATHING TREATMENT ADMINISTERED. TOLERATED TX WELL WITHOUT ADVERSE SIDE EFFECTS. NO ACUTE RESPIRATORY DISTRESS NOTED AT THIS TIME. WILL CONTINUE TO MONITOR.
[2019-08-19] MEDS: IPRATROPIUM 0.02% 0.5 MG/2.5 ML NEBU INH SCH ×4 (01:46→19:06)
--- NOTE | 2019-08-19 03:00 | NUR ---
MADE ROUNDS ASLEEP. NO S/S OF ANY DISCOMFORT NOR PAIN NOTED.
[2019-08-19 04:15] VITALS: BP 140/92
--- NOTE | 2019-08-19 04:30 | NUR ---
GOT UP TO THE BATHROOM . VOIDED. THEN BACK TO BED. C/O SEVERE HEADACHE. MEDICATED ORDERED.
[2019-08-19] MEDS: MORPHINE SULFATE 2 MG/ML SYR IVP PRN ×3 (04:37→20:46)
[2019-08-19 05:44] LABS: BASOPHILS # (AUTO) 0.1 K/uL (0.00-0.22); BASOPHILS % (AUTO) 1.3 % (0.0-2.0); EOSINOPHILS # (AUTO) 0.2 K/uL (0-0.4); EOSINOPHILS % (AUTO) 5.8 % (0.0-4.0); HEMATOCRIT 34.1 % (36-48); HEMOGLOBIN 10.6 g/dL (12.0-16.0); LYMPHOCYTES # (AUTO) 1.9 K/uL (2.5-16.5); LYMPHOCYTES % (AUTO) 44.9 % (20.5-51.1); MEAN CORPUSCULAR HEMOGLOBIN 22 pg (27-31); MEAN CORPUSCULAR HGB CONC 31 g/dL (33-37); MEAN CORPUSCULAR VOLUME 71.2 fL (80-94); MONOCYTES # (AUTO) 0.3 K/uL (0.8-1.0); MONOCYTES % (AUTO) 6.2 % (1.7-9.3); NEUTROPHILS # (AUTO) 1.7 K/uL (1.8-7.7); NEUTROPHILS % (AUTO) 41.8 % (42.2-75.2); PLATELET COUNT (AUTO) 221 K/uL (140-450); RED BLOOD CELL COUNT(AUTO) 4.79 MIL/uL (4.20-5.40); RED CELL DISTRIBUTION WIDTH 21.2 % (11.6-13.7); WHITE BLOOD COUNT (AUTO) 4.1 K/uL (4.8-10.8)
[2019-08-19] MEDS: BLOOD GLUCOSE MONITORING 1 DEV DEV FS SCH ×4 (06:04→20:49)
--- NOTE | 2019-08-19 06:05 | NUR ---
BLOOD SUGAR CHECKED RESULT 131. NO INSULIN NEEDED THIS AM.
[2019-08-19 06:06] LABS: ANION GAP 8.2 (8-16); CARBON DIOXIDE 33.8 mmol/L (21-32); CREATININE 1.2 mg/dL (0.6-1.3)
[2019-08-19 06:18] LABS: MAGNESIUM 1.6 mg/dL (1.8-2.4); PHOSPHORUS 5.3 mg/dL (2.5-4.9)
--- NOTE | 2019-08-19 07:15 | NUR ---
ENDORSED PT IN STABLE CONDITION TO AM NURSE.
--- NOTE | 2019-08-19 07:15 | NUR ---
ENDORSED PT IN STABLE CONDITION TO AM VAHID. Addendum: 08/19/19 at 0730 by Lisa Sweet RN CANCEL ABOVE NOTES. DUPLICATE.
--- NOTE | 2019-08-19 07:17 | NUR ---
RECEIVED BEDSIDE REPORT FROM CARD ASSEMBLER NURSE HAO FOR CONTINUITY OF CARE. PT IS ASLEEP AT THIS TIME AND AROUSABLE TO VOICE. RESPIRATION EVEN AND UNLABORED ON 2 LPM VIA NC. NO SIGNS OF ACUTE DISTRESS NOTED. IV SITE AT [facility] 20 GAUGE, DRY, INTACT, SL PER MD ORDER. SKIN DRY AND INTACT. PT IS AMBULATORY WITH STANDBY ASSIST AND CONTINENT. TELE MONITOR ATTACHED. SAFETY MEASURES IN PLACE. BED IN LOW, BED LOCKED. CALL LIGHT WITHIN REACH. SCD ON BILATERALLY.
[2019-08-19 08:00] VITALS: BP 151/96
[2019-08-19] MEDS: GABAPENTIN 300 MG CAP PO SCH ×2 (08:53→20:46)
[2019-08-19] MEDS: LOSARTAN 50 MG TAB PO SCH (08:53)
[2019-08-19] MEDS: CARVEDILOL 3.125 MG TAB PO SCH ×2 (08:54→20:46)
[2019-08-19] MEDS: FUROSEMIDE 40 MG/4 ML VIAL IVP SCH ×2 (08:54→17:50)
--- NOTE | 2019-08-19 09:00 | NUR ---
ATTENDED TO CALL LIGHT AND PT COMPLAINED OF 9/10 PAIN ON HER SHOULDERS. CHECKED BP AND RECEIVED 146/85 PULSE 78, MEDICATED WITH PRN PAIN MED MORPHINE VIA IVP, MED ED PROVIDED. ADMINISTERED AM SCHEDULED MED PER MD ORDER, MEDS EDUCATION PROVIDED AND PT VERBALIZED UNDERSTANDING. PT IS FACE TIMING WITH HER FAMILY AT THIS TIME. NO SIGNS OF ACUTE DISTRESS NOTED. SAFETY MEASURES IN PLACE. TELE MONITOR ATTACHED.
[2019-08-19] MEDS ORDERED: MAG SULF 2000 MG/WATER PREMIX 50 ML IV SCH (10:00)
--- NOTE | 2019-08-19 10:29 | NUR ---
DR MAHAN IS TALKING TO PATIENT AT BEDSIDE.
--- NOTE | 2019-08-19 10:42 | NUR ---
ADMINISTERED MAG SULFATE FOR LOW AM LAB 1.6, MED ED PROVIDED AND PT VERBALIZED UNDERSTANDING. PT IS FACE TIMING WITH HER SON AT THIS TIME. NO SIGNS OF DISTRESS NOTED. TELE MONITOR ATTACHED. SAFETY MEASURES IN PLACE.
--- NOTE | 2019-08-19 11:23 | NUR ---
CHECKED BG AND RECEIVED 185, WILL ADMINISTER COVERAGE WHEN LUNCH ARRIVES. VITAL SIGNS TAKEN. PT AWAKE AND TALKING ON HER PHONE ON BED AT THIS TIME. NO SIGNS OF DISTRESS NOTED. TELE MONITOR ATTACHED. SAFETY MEASURES IN PLACE.
--- NOTE | 2019-08-19 11:36 | NUR ---
PATIENT HAS BEEN SCREENED AND CATEGORIZED HIGH NUTRITION RISK. PATIENT WILL BE SEEN WITHIN 1-2 DAYS OF ADMISSION. 08/18/19 - 08/19/19 AMMON ROJAS MBA, RD
[2019-08-19 12:00] VITALS: BP 139/87
--- NOTE | 2019-08-19 12:03 | NUR ---
ATTENDED TO CALL LIGHT. ASSISTED PT TO GO BATHROOM AND BACK ON BED SAFELY. NO SIGNS OF DISTRESS NOTED. TELE MONITOR ATTACHED. SAFETY MEASURES IN PLACE. SCD ON BILATERALLY.
[2019-08-19] MEDS: INSULIN LISPRO SLIDING SCALE 100 UNITS/ML VIAL SUBQ PRN ×3 (12:18→20:48)
--- NOTE | 2019-08-19 12:19 | NUR ---
RECEIVED LUNCH TRAY, ADMINISTERED 2 UNITS OF HUMALOG, PT TOLERATED WELL. PT IS TALKING ON THE PHONE AT THIS TIME. NO SIGNS OF DISTRESS NOTED. TELE MONITOR ATTACHED.
--- NOTE | 2019-08-19 13:26 | NUR ---
PT IS TALKING ON HER PHONE AT THIS TIME. NO SIGNS OF DISTRESS NOTED. TELE MONITOR ATTACHED. SAFETY MEASURES IN PLACE.
--- NOTE | 2019-08-19 15:26 | NUR ---
PT IS ASLEEP COMFORTABLY ON BED. AROUSABLE TO VOICE. RESPIRATION EVEN AND UNLABORED ON 2 LPM VIA NC. NO SIGNS OF DISTRESS NOTED. TELE MONITOR ATTACHED. CALL LIGHT WITHIN REACH. BED IN LOW POSITION. SAFETY MEASURES IN PLACE.
[2019-08-19 16:00] VITALS: BP 142/87
--- NOTE | 2019-08-19 16:34 | NUR ---
CHECKED BG AND RECEIVED 181, WILL ADMINISTER COVERAGE WHEN DINNER ARRIVES. PT AWAKE AND WATCHING TV ON BED AT THIS TIME. NO SIGNS OF DISTRESS NOTED. TELE MONITOR ATTACHED. SAFETY MEASURES IN PLACE.
--- NOTE | 2019-08-19 17:56 | NUR ---
ECHO WAS DONE 05/21/2019 BELEN BONILLA SAID DONT REPEAT ECHOCARDIOGRAM
--- NOTE | 2019-08-19 17:58 | NUR ---
PT RECEIVED DINNER TRAY. ADMINISTERED 2 UNITS HUMALOG FOR BG 181, AND SCHEDULED MED PER MD ORDER, MED ED PROVIDED. PT COMPLAINED SHE DOESN'T LIKE HER DINNER. CALLED [facility] AND REQUESTED [employer] WITH [facility]. NO SIGNS OF DISTRESS NOTED. TELE MONITOR ATTACHED. SAFETY MEASURES IN PLACE.
--- NOTE | 2019-08-19 19:23 | NUR ---
RECEIVED BEDSIDE REPORT FROM AM SHIFT NURSE. PATIENT IS LYING IN BED IN HIGH FOWLERS, AWAKE AND ALERT. NO SOB OR DISTRESS NOTED. PATIENT IS RECEIVING BREATHING TREATMENT FROM RT AT THIS TIME. IV ACCESS ON RIGHT AC 20 GAUGE, SALINE LOCK. INITIAL ASSESSMENT DONE. SKIN IS INTACT. BED IN LOW, BED LOCKED. SAFETY MEASURES IN PLACE. CALL LIGHT WITHIN PATIENT REACH. WILL CONTINUE TO MONITOR PATIENT.
--- NOTE | 2019-08-19 19:23 | NUR ---
ENDORSED PATIENT TO DAYSHIFT NURSE FOR CONTINUITY OF CARE. PATIENT IS GETTING BREATHING TREATMENT AT THIS TIME, RT BY BEDSIDE. PT IS IN STABLE CONDITION. TELE MONITOR ATTACHED.
[2019-08-19 20:20] VITALS: BP 121/79
--- NOTE | 2019-08-19 20:46 | NUR ---
PRN MORPHINE GIVEN PER PATIENT REQUEST FOR SEVERE PAIN. WILL CONTINUE TO MONITOR PATIENT.
[2019-08-19] MEDS: MAGNESIUM OXIDE 400 MG TAB PO SCH (20:47)
[2019-08-19] MEDS: ATORVASTATIN 20 MG TAB PO SCH (20:47)
--- NOTE | 2019-08-19 20:48 | NUR ---
PATIENT HAD A BLOOD GLUCOSE RESULT OF 185 WITH 2 UNITS OF REGULAR HUMALOG INSULIN GIVEN.
[2019-08-19] MEDS: INSULIN LANTUS 100 UNITS/ML 10 ML VIAL SUBQ SCH (20:49)
[2019-08-20 00:20] VITALS: BP 125/65
[2019-08-20] MEDS: IPRATROPIUM 0.02% 0.5 MG/2.5 ML NEBU INH SCH ×4 (00:53→19:44)
--- NOTE | 2019-08-20 00:53 | NUR ---
PATIENT SAID SHE DID NOT NEED HHNTX AT THIS TIME. WILL CALL IF SHE NEEDS ONE. NO SOB NOTED. PATIENT WEARING NC AT 2L
[2019-08-20] MEDS: MORPHINE SULFATE 2 MG/ML SYR IVP PRN ×3 (00:54→19:51)
--- NOTE | 2019-08-20 00:54 | NUR ---
PRN MORPHINE GIVEN PER PATIENT REQUEST FOR SEVERE PAIN. WILL CONTINUE TO MONITOR PATIENT.
--- NOTE | 2019-08-20 02:15 | NUR ---
ROUNDS DONE. PATIENT RESTING WITH EYES CLOSED. NO DISTRESS NOTED. CALL LIGHT WITHIN PATIENT REACH. WILL CONTINUE TO MONITOR PATIENT.
--- NOTE | 2019-08-20 04:15 | NUR ---
VITALS TAKEN. VISIBLE CHEST RISE AND FALL NOTED. CALL LIGHT WITHIN PATIENT REACH. WILL CONTINUE TO MONITOR PATIENT.
[2019-08-20 04:20] VITALS: BP 124/72
[2019-08-20 05:40] LABS: ANION GAP 8.3 (8-16); CARBON DIOXIDE 35.4 mmol/L (21-32); CREATININE 1.1 mg/dL (0.6-1.3); POTASSIUM 3.7 mmol/L (3.5-5.1)
--- NOTE | 2019-08-20 05:43 | NUR ---
PRN MORPHINE GIVEN AT THIS TIME PER PATIENT REQUEST FOR SEVERE PAIN.
[2019-08-20 05:48] LABS: MAGNESIUM 1.5 mg/dL (1.8-2.4); PHOSPHORUS 5.1 mg/dL (2.5-4.9)
[2019-08-20 05:52] LABS: BASOPHILS # (AUTO) 0.1 K/uL (0.00-0.22); BASOPHILS % (AUTO) 1.9 % (0.0-2.0); EOSINOPHILS # (AUTO) 0.3 K/uL (0-0.4); EOSINOPHILS % (AUTO) 6.7 % (0.0-4.0); HEMATOCRIT 32.1 % (36-48); LYMPHOCYTES # (AUTO) 1.6 K/uL (2.5-16.5); MEAN CORPUSCULAR HEMOGLOBIN 22 pg (27-31); MEAN CORPUSCULAR HGB CONC 31 g/dL (33-37); MEAN CORPUSCULAR VOLUME 70.6 fL (80-94); MONOCYTES # (AUTO) 0.3 K/uL (0.8-1.0); MONOCYTES % (AUTO) 7.5 % (1.7-9.3); NEUTROPHILS # (AUTO) 1.7 K/uL (1.8-7.7); NEUTROPHILS % (AUTO) 42.9 % (42.2-75.2); PLATELET COUNT (AUTO) 219 K/uL (140-450); RED BLOOD CELL COUNT(AUTO) 4.54 MIL/uL (4.20-5.40); RED CELL DISTRIBUTION WIDTH 20.5 % (11.6-13.7)
[2019-08-20] MEDS: INSULIN LISPRO SLIDING SCALE 100 UNITS/ML VIAL SUBQ PRN ×2 (06:22→17:44)
--- NOTE | 2019-08-20 06:22 | NUR ---
PATIENT HAD A BLOOD GLUCOSE OF 161 WITH 2 UNITS OF REGULAR HUMALOG INSULIN GIVEN. WILL CONTINUE TO MONITOR PATIENT.
[2019-08-20] MEDS: BLOOD GLUCOSE MONITORING 1 DEV DEV FS SCH ×4 (07:03→20:39)
--- NOTE | 2019-08-20 07:20 | NUR ---
PATIENT IN STABLE CONDITION. NO SOB OR DISTRESS NOTED. ENDORSED TO AM SHIFT NURSE FOR CONTINUITY OF CARE.
--- NOTE | 2019-08-20 07:21 | NUR ---
REPORT RECEIVED FROM MEDICAL TECHNOLOGIST MICROBIOLOGY NURSE. PATIENT IN STABLE CONDITION LYING IN BED WATCHING TV. RESPIRATIONS EVEN AND UNLABORED. NO DISTRESS NOTED. PATIENT DENIES PAIN AT THIS TIME. IV SITE IS PATENT AND INTACT. WILL CONTINUE TO MONITOR.
[2019-08-20 08:00] VITALS: BP 133/67
[2019-08-20] MEDS: FUROSEMIDE 40 MG/4 ML VIAL IVP SCH ×2 (08:52→17:39)
[2019-08-20] MEDS: LOSARTAN 50 MG TAB PO SCH (08:52)
[2019-08-20] MEDS: MAGNESIUM OXIDE 400 MG TAB PO SCH ×2 (08:52→20:46)
[2019-08-20] MEDS: CARVEDILOL 3.125 MG TAB PO SCH ×2 (08:53→20:45)
[2019-08-20] MEDS: GABAPENTIN 300 MG CAP PO SCH ×2 (08:53→20:45)
--- NOTE | 2019-08-20 09:04 | NUR ---
SCHEDULED MEDICATIONS GIVEN. PATIENT TOLERATED WELL. MEDICATION EDUCATION GIVEN TO PATIENT, PT VERBALIZED UNDERSTANDING. WILL CONTINUE TO MONITOR.
--- NOTE | 2019-08-20 10:33 | NUR ---
BUSINESS INTEGRATION ANALYST NOTE: Basic Screen: Yes High Risk DC Screen Yes Re-Admission: Other Name: NAYA SHELL Home Relationship: DAUGHTER Pre-Admission Living Arrangements: Lives with Other Prior ADL Needs Assistance Current Home Health Name/Tel: N/A Current DME/02 Name/Tel: N/A Current Hospice Name/Tel: N/A Current Dialysis Name/Tel: N/A Discipline: Case Mgt/Social Svcs Tentative Discharge Plan/Destination: No Needs Identified Tentative Discharge Plan Summary: SW MET WITH PATIENT AT BEDSIDE. ASSESSMENT IS CONSISTENT WITH THAT OF PREVIOUS HOSPITALIZATION ON 08-11-2019. PATIENT IS A 54-YEAR-OLD FEMALE ADMITTED FOR CHF. PATIENT WAS ADMITTED FOR ASTHMA, COPD, CHF, DIABETES, AND HYPERTENSION. PATIENT WAS ADMITTED FROM HOME WHERE SHE LIVES WITH HER DAUGHTER. SW SPOKE WITH PATIENT AT BEDSIDE TO VERIFY DEMOGRAPHICS. PER PATIENT, HER DAUGHTER NAYA SHELL IS HER PRIMARY CAREGIVER AND IS REIMBURSED THROUGH [facility]. PATIENT REQUESTED ADDITIONAL SS INFORMATION. SW PROVIDED IHSS RESOURCES. PATIENT STATED THAT SHE REQUIRES ASSISTANCE WITH BATHING, CLEANING, AND PREPARING MEALS. PATIENT REPORTED NO HISTORY OF MENTAL HEALTH OR SUBSTANCE ABUSE. TENTATIVE DISCHARGE PLAN IS FOR PATIENT TO RETURN HOME. NO FURTHER NEEDS IDENTIFIED. Signature: BERTHA OSMAN Date: August 20, 2019 Time: 10:33
--- NOTE | 2019-08-20 11:15 | NUR ---
DC PLANNIN YRS OLD FEMALE PATIENT WAS ADMITTED FROM HOME WITH A DX OF CHF. PATIENT WAS DISCHARGED FROM THE HOSPITAL A WEEK AGO. PATIENT HAS A HX OF COPD ,CHF, AND DM. PT HAS HOME O2. CXR SHOWED MILD LEFT BASILAR PROBABLE ATELECTASIS AND STABLE MILD CARDIOMEGALY. ADMINISTERED BREATHING TREATMENT PER RT PROTOCOL , CONTINUE HOME MEDS, CARDIO AND PULMO CONSULT. DC PLAN TO GO HOME WITH HOME HEALTH FOR SAFETY EVAL. FAXED THE REQUEST TO [employer] [facility] . DARYA TO FOLLOW. Addendum: 08/20/19 at 1333 by Linda Keys CM FAXED OVER PACKET TO DARYA GARCIA AT [facility] [phone] FAX NUMBER [phone] FOR AUTH FOR PROCEDURE TO BE DONE AT [facility]. I WILL FOLLOW UP TO SEE IF IT HAS BEEN APPROVED. Addendum: 08/20/19 at 1500 by Tanya Sharif CM SPOKE TO DARYA GARCIA OF [facility], SHE STATED SHE NEEDED THE CPT CODE FOR THE PROCEDURE AND WILL FIND OUT IF [facility] AND DR. Antoni KING ARE CONTRACTED WITH THEM. INFORMED HER THAT I WILL FIND OUT. SPOKE TO JESUS OF [employer], SHE STATED SHE COULD NOT PROVIDE THE EXACT CODES UNTIL THE PROCEDURE IS DONE BUT MAY USE [id number]. PROVIDED THE CPT CODES TO DARYA GARCIA. SHE ALSO STATED THAT [facility] AND DR Jaylon KING ARE ALL CONTRACTED WITH [facility] AND SHE WILL ETIENNE ME BACK WITH THE AUTH. CONTACTED [employer]AXON [facility] OR OUTSIDE LABORER AND MADE HER AWARE OF THE REFERRAL AND PENDING AUTH. JAXON PROVIDED ME WITH FAX NUMBER [phone]. REFERRAL SENT. WILL FOLLOW UP. DR. Antoni KING MADE AWARE. Addendum: 08/20/19 at 1637 by Tanya Sharif RECEIVED A CALL FROM JAXON OF [facility], ASKING IF THE PATIENT HAS BEEN TESTED FOR COVID AND INFORMED HER THAT PATIENT HAS NOT BEEN TESTED SINCE NO SYMPTOMS. SHE STATED THAT IT IS THEIR POLICY NOW TO DO COVID TESTING FOR ALL THEIR OUTPATIENTS. DR Jaylon KING MADE AWARE AND STATED TO PLACE ORDER. Addendum: 08/20/19 at 1642 by Tanya Sharif CONT. I ALSO ASKED HIM IF HE WANTS ME TO SEND IT OVER TO [facility] INSTEAD. HE STATED HE SPOKE TO THE INSURANCE ALREADY. CHARGE NURSE MADE AWARE THAT ORDER FOR COVID TEST IS IN. Addendum: 08/21/19 at 0925 by Linda Keys SPOKE TO BRET AT [facility], THEY WILL BE ACCEPTING PATIENT FOR HOME HEALTH [phone], WILL FOLLOW UP ONCE PATIENTS PROCEDURE IS DONE AND WE RECEIVE DISCHARGE ORDER. WE RECEIVED AUTH FOR PATIENT TO HAVE PROCEDURE DONE AT [facility]. Addendum: 08/21/19 at 1237 by Bhargavi Cannon DC PLANNING: CALLED [facility] SPOKE WITH BRYAN STATED WAITING FOR THE BUSINESS OFFICE TO CLEAR THE CASE TO SCHEDULE THE CARDIAC CATH. CALLED [facility] [phone] SPOKE WITH JOSE LACKEY CLARIFIED THE AUTHORIZATION. NILA ADAMS NEEDS TO CLARIFY FROM THE BUSINESS OFFICE AND WILL CALL BACK TO SCHEDULE THE PROCEDURE. CM TO FOLLOW Addendum: 08/21/19 at 1501 by Bhargavi Cannon CM DC PLANNING: CALLED [facility] SPOKE WITH BRYAN ,STATED WAS APPROVED BY THE BUSINESS OFFICE , THE PROCEDURE SCHEDULED AT 11 AM MEDICAL RECORD TECHNICIAN TIME WILL BE 7 AM . ARRANGED TRANSPORT WITH [employer] [phone] [facility] FAXED THE REQUEST TO [phone] MEDICAL RECORD TECHNICIAN TIME 7AM. REFERENCE NUMBER [id number] WILL CALL FOR ETA. DARYA TO FOLLOW . NOTIFIED KATIE CHARGE NURSE. Addendum: 08/21/19 at 1509 by Linda Keys CM PROVIDED PATIENT WILL FOLLOW UP APPOINTMENT ON August AT 315 PM. APPOINTMENT WILL BE A TELEPHONE APPY Addendum: 08/23/19 at 1056 by Linda Keys CM AUTH PROVIDED BY JOSE [facility]ATH[facility] [id number]. Addendum: 08/23/19 at 1156 by Linda Keys CM SPOKE TO BRET AT [facility] AND PROVIDED AUTH # [id number]. HOME HEALTH NURSE WILL BE OUT TOMORROW ON Monday08/24/2019
--- NOTE | 2019-08-20 11:30 | NUR ---
BLOOD SUGAR CHECKED. WNL, NO COVERAGE NEEDED. WILL CONTINUE TO MONITOR
[2019-08-20 12:00] VITALS: BP 119/76
--- NOTE | 2019-08-20 13:18 | NUR ---
PT STATES SHE IS DOING GOOD WITH HER BREATHING HAS REFUSED TX NO SIGNS OF SOB OR DISTRESS NOTED AT THIS TIME. O2 SAT ON ROOM AIR IS 99%
--- NOTE | 2019-08-20 13:30 | NUR ---
PATIENT IS IN BED ON HER CELL PHONE. NO DISTRESS NOTED. RESPIRATIONS EVEN AND UNLABORED. 02 SAT IS 98% ON ROOM AIR. REPORTS NO SOB. WILL CONTINUE TO MONITOR.
--- NOTE | 2019-08-20 15:37 | NUR ---
PATIENT RESTING IN BED WATCHING TV. NO DISTRESS NOTED. O2 SAT 99% ON ROOM AIR. WILL CONTINUE TO MONITOR.
[2019-08-20 16:00] VITALS: BP 134/86
--- NOTE | 2019-08-20 17:46 | NUR ---
SCHEDULED MEDICATIONS GIVEN. PT TOLERATED WELL. MEDICATION EDUCATION PROVIDED, PATIENT VERBALIZED UNDERSTANDING. PT IS REFUSING COVID TESTING AT THIS TIME, PROVIDER NOTIFIED. WILL CONTINUE TO MONITOR.
--- NOTE | 2019-08-20 19:25 | NUR ---
GAVE REPORT TO NIGHT NURSE FOR CONTINUITY OF CARE, PT IS STABLE.
--- NOTE | 2019-08-20 19:26 | NUR ---
RECEIVED BEDSIDE REPORT FROM DAY RN. PT IS AAOX4. RESPIRATIONS ARE EQUAL AND UNLABORED ON ROOM AIR. PT TALKING ON CELLPHONE NO S/S OF DISTRESS. IV ON RAC 20G SL. SKIN IS WARM AND DRY AND INTACT. PT ON FALL PRECAUTIONS. C/C SOB AND CHEST PAIN. DX CHF. PLAN TO TX FOR R&L CARDIAC CATH AND POSSIBLE STENT PLACEMENT. NEW ORDER TO SWAB FOR COVID-19 SINCE PT WILL BE TRANSFERRED PT VERBALIZED UNDERSTANDING. POC DISCUSSED. CALL LIGHT IS WITHIN REACH. WILL CONTINUE TO MONITOR.
--- NOTE | 2019-08-20 19:51 | NUR ---
ADMINISTERED PRN MORPHINE FOR BACK PAIN 01/03. COVID SWAB OBTAINED AND SENT TO LAB. PT TOLERATED WELL. WILL CONTINUE TO MONITOR.
--- NOTE | 2019-08-20 19:56 | NUR ---
RECEIVED PATIENT ON ROOM AIR, PULSE OX SAT 97%. SCHEDULED BREATHING TREATMENT ADMINISTERED. TOLERATED TX WELL WITHOUT ADVERSE SIDE EFFECTS. PT MADE AWARE OF SCHEDULED MEDICATION FREQUENCY AND INSTRUCTED TO CALL NEEDED FOR SOB. NO ACUTE RESPIRATORY DISTRESS NOTED AT THIS TIME. WILL CONTINUE TO MONITOR.
[2019-08-20 20:00] VITALS: BP 149/96
[2019-08-20] MEDS: INSULIN LANTUS 100 UNITS/ML 10 ML VIAL SUBQ SCH (20:44)
[2019-08-20] MEDS: ATORVASTATIN 20 MG TAB PO SCH (20:45)
--- NOTE | 2019-08-20 20:45 | NUR ---
VSS. BG 143. LING MEDICATIONS GIVEN PER ORDERS. PT TOLERATED WELL. SAFETY MEASURES ARE IN PLACE. WILL CONTINUE TO MONITOR.
--- NOTE | 2019-08-20 22:00 | NUR ---
PT SITTING COMFORTABLY IN BED TALKING ON CELLPHONE. NO S/S OF DISTRESS. SAFETY MEASURES ARE IN PLACE. WILL CONTINUE TO MONITOR.
[2019-08-21] VITALS: BP 141/91
[2019-08-21] MEDS: MORPHINE SULFATE 2 MG/ML SYR IVP PRN ×5 (00:05→21:25)
--- NOTE | 2019-08-21 00:05 | NUR ---
VSS. ADMINISTERED PRN MORPHINE FOR PAIN 11/03. PT TOLERATED WELL. ALL SAFETY MEASURES ARE IN PLACE. CALL LIGHT IS WITHIN REACH.
--- NOTE | 2019-08-21 02:14 | NUR ---
PATIENT IS SLEEPING COMFORTABLY IN BED WITH EYES CLOSED. CHEST RISE AND FALL NOTED. NO S/S OF DISTRESS. CALL LIGHT IS WITHIN REACH.
[2019-08-21] MEDS: IPRATROPIUM 0.02% 0.5 MG/2.5 ML NEBU INH SCH ×4 (02:49→19:26)
--- NOTE | 2019-08-21 02:50 | NUR ---
SCHEDULED BREATHING TREATMENT ADMINISTERED. TOLERATED TX WELL WITHOUT ADVERSE SIDE EFFECTS. NO ACUTE RESPIRATORY DISTRESS NOTED AT THIS TIME. WILL CONTINUE TO MONITOR.
[2019-08-21 04:00] VITALS: BP 119/80
--- NOTE | 2019-08-21 04:13 | NUR ---
VSS. ADMINISTERED PRN MORPHINE FOR PAIN 11/03. PT TOLERATED WELL. ALL SAFETY MEASURES ARE IN PLACE. WILL CONTINUE TO MONITOR.
[2019-08-21 06:16] LABS: BASOPHILS # (AUTO) 0.1 K/uL (0.00-0.22); BASOPHILS % (AUTO) 1.6 % (0.0-2.0); EOSINOPHILS # (AUTO) 0.2 K/uL (0-0.4); EOSINOPHILS % (AUTO) 3.8 % (0.0-4.0); HEMOGLOBIN 10.4 g/dL (12.0-16.0); LYMPHOCYTES # (AUTO) 1.9 K/uL (2.5-16.5); LYMPHOCYTES % (AUTO) 47.5 % (20.5-51.1); MEAN CORPUSCULAR HEMOGLOBIN 22 pg (27-31); MEAN CORPUSCULAR HGB CONC 31 g/dL (33-37); MEAN CORPUSCULAR VOLUME 71.2 fL (80-94); MONOCYTES # (AUTO) 0.4 K/uL (0.8-1.0); MONOCYTES % (AUTO) 9.8 % (1.7-9.3); NEUTROPHILS # (AUTO) 1.5 K/uL (1.8-7.7); NEUTROPHILS % (AUTO) 37.3 % (42.2-75.2); PLATELET COUNT (AUTO) 242 K/uL (140-450); RED BLOOD CELL COUNT(AUTO) 4.63 MIL/uL (4.20-5.40); RED CELL DISTRIBUTION WIDTH 20.6 % (11.6-13.7); WHITE BLOOD COUNT (AUTO) 4.1 K/uL (4.8-10.8)
[2019-08-21 06:22] LABS: ANION GAP 5.4 (8-16); CREATININE 1.2 mg/dL (0.6-1.3); POTASSIUM 3.4 mmol/L (3.5-5.1)
[2019-08-21 06:26] LABS: MAGNESIUM 1.6 mg/dL (1.8-2.4); PHOSPHORUS 3.9 mg/dL (2.5-4.9)
[2019-08-21] MEDS: INSULIN LISPRO SLIDING SCALE 100 UNITS/ML VIAL SUBQ PRN ×3 (06:38→21:46)
--- NOTE | 2019-08-21 06:38 | NUR ---
BG 155 ADMINISTERED INSULIN PER SLIDING SCALE. ALL NEEDS MET AT THIS TIME. CALL LIGHT IS WITHIN REACH.
[2019-08-21] MEDS: BLOOD GLUCOSE MONITORING 1 DEV DEV FS SCH ×4 (06:39→21:20)
--- NOTE | 2019-08-21 07:10 | NUR ---
GAVE BEDSIDE REPORT TO DAY RN. PT ENDORSED IN STABLE CONDITION. ALL SAFETY MEASURES ARE IN PLACE.
--- NOTE | 2019-08-21 07:11 | NUR ---
RECEIVED BEDSIDE REPORT FROM AUTO CLOCKS REPAIRER NURSE. AOX4, NO SOB, FLACC 0, RESPIRATIONS ARE EVEN UNLABORED. SKIN INTACT. PT IS AMBULATORY. WITH 2L O2 VIA NC. IV INTACT AND PATENT. IV SITE RAC 20G ON SL. PLAN OF CARE UPDATED. SAFETY MEASURES IN PLACE. BED IN LOW POSITION. CALL LIGHT WITHIN REACH. WILL CONTINUE TO MONITOR.
[2019-08-21 08:00] VITALS: BP 150/94
[2019-08-21] MEDS: FUROSEMIDE 40 MG/4 ML VIAL IVP SCH ×2 (08:30→17:15)
[2019-08-21] MEDS: CARVEDILOL 3.125 MG TAB PO SCH ×2 (08:30→21:14)
[2019-08-21] MEDS: MAGNESIUM OXIDE 400 MG TAB PO SCH ×2 (08:30→21:15)
[2019-08-21] MEDS: LOSARTAN 50 MG TAB PO SCH (08:30)
[2019-08-21] MEDS: GABAPENTIN 300 MG CAP PO SCH ×2 (08:30→21:15)
--- NOTE | 2019-08-21 08:30 | NUR ---
DUE MEDS GIVEN. TOLERATED WELL
--- NOTE | 2019-08-21 09:00 | NUR ---
WITH C/O BACK PAIN 11/03. MORPHINE IVP GIVEN ORDERED
--- NOTE | 2019-08-21 10:45 | NUR ---
PT IN BED TALKING TO FAMILY ON THE PHONE. NO C/O PAIN, NO SOB
[2019-08-21] MEDS ORDERED: POTASSIUM CHLORIDE 10 MEQ TABER PO SCH (11:00)
[2019-08-21] MEDS ORDERED: MAG SULF 2000 MG/WATER PREMIX 50 ML IV SCH (11:00)
--- NOTE | 2019-08-21 11:20 | NUR ---
BLOOD SUGAR 140. NO COVERAGE NEEDED
[2019-08-21 12:00] VITALS: BP 138/85
--- NOTE | 2019-08-21 12:30 | NUR ---
PT IN BED EATING LUNCH. NO COMPLAINTS AT THIS TIME
--- NOTE | 2019-08-21 15:02 | NUR ---
PT ASLEEP IN BED. NO APPARENT DISTRESS
[2019-08-21 16:00] VITALS: BP 147/96
--- NOTE | 2019-08-21 16:45 | NUR ---
BLOOD SUGAR 202. COVERAGE GIVEN
--- NOTE | 2019-08-21 19:00 | NUR ---
NO C/O PAIN, NO SOB. IN STABLE CONDITION. WILL ENDORSE TO NEXT SHIFT.
--- NOTE | 2019-08-21 19:15 | NUR ---
RECEIVED PT AAOX4 , NID 02 SAT WNL - RA , C/O PAIN - LEGS PAIN , ON TELE MONITOR . ON SL - INTACT AND PATENT . FOR TRANSFER TO [facility] - FOR CARDIO ANGIOGRAM - NPO POST [place] . SAFETY MEASURES IN PLACE . POC DISCUSSED AND VERBALIZE UNDERSTANDING . WILL CONT. TO MONITOR.
[2019-08-21 20:00] VITALS: BP 122/76
[2019-08-21] MEDS: ATORVASTATIN 20 MG TAB PO SCH (21:14)
[2019-08-21] MEDS: INSULIN LANTUS 100 UNITS/ML 10 ML VIAL SUBQ SCH (21:20)
--- NOTE | 2019-08-21 22:00 | NUR ---
MADE ROUNDS , REDUCED PAIN SWETHA SAID - WILL CONT. TO MONITOR
[2019-08-22] VITALS: BP 122/69
[2019-08-22] MEDS: IPRATROPIUM 0.02% 0.5 MG/2.5 ML NEBU INH SCH (01:00)
--- NOTE | 2019-08-22 01:52 | NUR ---
PT REFUSED Tx PT WAS SLEEPING COMFORTABLY SAT IN 90S HR IN 80S PT FELL BACK ASLEEP
--- NOTE | 2019-08-22 02:00 | NUR ---
SLEEPING - CHEST RISE AND FALL EQUALLY.
[2019-08-22 03:57] VITALS: BP 118/69
[2019-08-22 04:00] VITALS: BP 140/80
--- NOTE | 2019-08-22 04:00 | NUR ---
MADE ROUNDS . NO S/S OF ACUTE DISTRESS NOTED , WILL CONT. TO MONITOR.
[2019-08-22] MEDS: MORPHINE SULFATE 2 MG/ML SYR IVP PRN (04:52)
--- NOTE | 2019-08-22 05:40 | NUR ---
PT'S SIGNED THE DISCHARGE PAPERS - MAINTAIN NPO REMINDS PT.
[2019-08-22 05:53] LABS: BASOPHILS # (AUTO) 0.1 K/uL (0.00-0.22); BASOPHILS % (AUTO) 2.5 % (0.0-2.0); EOSINOPHILS # (AUTO) 0.2 K/uL (0-0.4); EOSINOPHILS % (AUTO) 5.9 % (0.0-4.0); HEMATOCRIT 33.7 % (36-48); HEMOGLOBIN 10.4 g/dL (12.0-16.0); LYMPHOCYTES # (AUTO) 1.7 K/uL (2.5-16.5); LYMPHOCYTES % (AUTO) 42.9 % (20.5-51.1); MEAN CORPUSCULAR HEMOGLOBIN 22 pg (27-31); MEAN CORPUSCULAR HGB CONC 31 g/dL (33-37); MEAN CORPUSCULAR VOLUME 70.9 fL (80-94); MONOCYTES # (AUTO) 0.4 K/uL (0.8-1.0); MONOCYTES % (AUTO) 10.9 % (1.7-9.3); NEUTROPHILS # (AUTO) 1.5 K/uL (1.8-7.7); NEUTROPHILS % (AUTO) 37.8 % (42.2-75.2); PLATELET COUNT (AUTO) 234 K/uL (140-450); RED BLOOD CELL COUNT(AUTO) 4.75 MIL/uL (4.20-5.40); RED CELL DISTRIBUTION WIDTH 20.3 % (11.6-13.7)
[2019-08-22] MEDS: BLOOD GLUCOSE MONITORING 1 DEV DEV FS SCH (06:05)
[2019-08-22 06:16] LABS: ANION GAP 7.5 (8-16); CARBON DIOXIDE 36.5 mmol/L (21-32); CREATININE 1.2 mg/dL (0.6-1.3)
[2019-08-22 06:33] LABS: MAGNESIUM 1.9 mg/dL (1.8-2.4); PHOSPHORUS 4.1 mg/dL (2.5-4.9)
--- NOTE | 2019-08-22 06:38 | NUR ---
INFORM MYRA / KETTLE LOADER THRU RECORDER MACHINE - PT FOR TRANSFER TODAY FOR THE ORDERED PROCEDURE. Addendum: 08/22/19 at 0759 by Lizeth Barnhart RN CHARGE NURSE [place] AWARE ABOUT CYNTHIA SCHUMACHER
--- NOTE | 2019-08-22 07:15 | NUR ---
SEISMIC PLOTTER BY EMS - PT STABLE - DICHARGE PAPERS GIVEN , ON SL . REPORT GIVEN TO EMS .
[2019-09-15] MEDS ORDERED: BACL10TA4 PO (10:06)
== END 2019-08-22 07:10 | disposition short-term general hospital (02) | DRG 190 ==
LOC: MED 13:57 → MTU 18:20 → EEVIPCON 18:20
PROVIDERS: ADMIT Preventive Medicine Preventive Medicine/Occupational Environmental Medicine; ATTEND Preventive Medicine Preventive Medicine/Occupational Environmental Medicine
DX: I21.4 Non-ST elevation (NSTEMI) myocardial infarction (principal); J96.21 Acute and chronic respiratory failure with hypoxia; I50.41 Acute combined systolic (congestive) and diastolic (congestive) heart failure; N17.9 Acute kidney failure, unspecified; I13.0 Hypertensive heart and chronic kidney disease with heart failure and stage 1 through stage 4 chronic kidney disease, or unspecified chronic kidney disease; I11.0 Hypertensive heart disease with heart failure; E11.21 Type 2 diabetes mellitus with diabetic nephropathy; E87.6 Hypokalemia; E83.42 Hypomagnesemia; E83.52 Hypercalcemia; J44.9 Chronic obstructive pulmonary disease, unspecified; D64.9 Anemia, unspecified; N18.9 Chronic kidney disease, unspecified; E11.65 Type 2 diabetes mellitus with hyperglycemia; E83.51 Hypocalcemia; E78.5 Hyperlipidemia, unspecified; E11.22 Type 2 diabetes mellitus with diabetic chronic kidney disease; D72.819 Decreased white blood cell count, unspecified; Z20.828 Contact with and (suspected) exposure to other viral communicable diseases; E66.2 Morbid (severe) obesity with alveolar hypoventilation; Z68.41 Body mass index [BMI] 40.0-44.9, adult; Z98.51 Tubal ligation status; Z95.0 Presence of cardiac pacemaker; Z79.899 Other long term (current) drug therapy; Z88.6 Allergy status to analgesic agent; Z88.8 Allergy status to other drugs, medicaments and biological substances; I25.2 Old myocardial infarction
CPT/HCPCS: 36415; 36600; 71045; 71275; 80048; 80053; 82550; 82553; 82803; 82948; 83735; 83880; 84100; 84484; 85025; 85379; 87081; 93005; 93970; 94640; 96374; 96375; 96376; 99285; J0360; J1815; J1940; J2270; J3475; J7613; J7644; Q0092; Q9967; U0003-CS

== ENCOUNTER 2019-09-02 02:13 | Inpatient (IN) | payer MEDICAID, SELFPAY ==
[~2019-09-02] VITALS: Ht 172.7 cm; Wt 117.0 kg
[2019-09-02 02:20] VITALS: BP 160/111
--- NOTE | 2019-09-02 02:20 | NUR ---
54 YEAR OLD FEMALE COMPLAINS OF CHEST PAIN THAT RADIATES TO LEFT ARM AND BACK THROUGHOUT THE DAY, HAS WORSENED IN THE LAST 1-2 HOURS. PT STATES PAIN IS THROBBING SENSATION. PT DENIES SHORTNESS OF BREATHE. PT AOX4, BREATHING LABORED/EVEN, SKIN WARM AND DRY. EMT AT BEDSIDE WITH CHANDELIER MAKER. BED IN LOWEST POSITION, LOCKED, BED RAIL UPX1. PT PLACED ON MONITOR, ERMD MADE AWARE OF STATUS. PMH - CHF, COPD, DM2, HTN ALLERGIES - IBUPROFEN, TRAMADOL, PREDNISONE, KETAMINE
--- NOTE | 2019-09-02 02:30 | NUR ---
ERMD AT BEDSIDE
--- NOTE | 2019-09-02 03:02 | NUR ---
PT STATES STILL PAIN, ERMD MADE AWARE
[2019-09-02 03:03] LABS: ALBUMIN 3.1 g/dL (3.4-5.0); ANION GAP 11.1 (8-16); CARBON DIOXIDE 27.7 mmol/L (21-32); CREATININE 1.3 mg/dL (0.6-1.3); POTASSIUM 3.8 mmol/L (3.5-5.1); TOTAL BILIRUBIN 0.4 mg/dL (0.0-1.0)
[2019-09-02] MEDS ORDERED: ONDANSETRON 4 MG/2 ML VIAL IVP ONE (03:05)
[2019-09-02] MEDS ORDERED: MORPHINE SULFATE 4 MG/ML SYR IVP ONE ×2 (03:05→05:25)
[2019-09-02 03:19] LABS: BASOPHILS # (AUTO) 0.1 K/uL (0.00-0.22); BASOPHILS % (AUTO) 1.9 % (0.0-2.0); EOSINOPHILS # (AUTO) 0.2 K/uL (0-0.4); EOSINOPHILS % (AUTO) 3.7 % (0.0-4.0); HEMATOCRIT 34.5 % (36-48); HEMOGLOBIN 10.7 g/dL (12.0-16.0); LYMPHOCYTES # (AUTO) 2.5 K/uL (2.5-16.5); LYMPHOCYTES % (AUTO) 46.2 % (20.5-51.1); MEAN CORPUSCULAR HEMOGLOBIN 22 pg (27-31); MEAN CORPUSCULAR HGB CONC 31 g/dL (33-37); MEAN CORPUSCULAR VOLUME 71.5 fL (80-94); MONOCYTES # (AUTO) 0.3 K/uL (0.8-1.0); MONOCYTES % (AUTO) 5.8 % (1.7-9.3); NEUTROPHILS # (AUTO) 2.3 K/uL (1.8-7.7); NEUTROPHILS % (AUTO) 42.4 % (42.2-75.2); PLATELET COUNT (AUTO) 258 K/uL (140-450); RED BLOOD CELL COUNT(AUTO) 4.83 MIL/uL (4.20-5.40); WHITE BLOOD COUNT (AUTO) 5.4 K/uL (4.8-10.8)
[2019-09-02 03:34] LABS: RED CELL DISTRIBUTION WIDTH 20.7 % (11.6-13.7)
--- NOTE | 2019-09-02 03:43 | NUR ---
PT RESTING WITH EYES CLOSED, BREATHING EVEN AND UNLABORED
[2019-09-02] MEDS ORDERED: FUROSEMIDE 40 MG/4 ML VIAL IVP ONE (04:00)
--- NOTE | 2019-09-02 04:23 | NUR ---
BEDSIDE COMMODE PLACED BY PATIENT
--- NOTE | 2019-09-02 04:37 | NUR ---
PT O2 SATURATION DIPPED TO 90%, PLACED ON 2L NC. ERMD MADE AWARE
--- NOTE | 2019-09-02 04:39 | NUR ---
O2 SATURATION 100%
--- NOTE | 2019-09-02 05:22 | NUR ---
PT REQUESTING PAIN MEDICATION, ERMD AWARE
--- NOTE | 2019-09-02 06:35 | NUR ---
Patient will be admitted to care of Dr Crystal. Admited to Tele. Will go to room 107B. Belongings list completed. Report to Leda TREVINO.
--- NOTE | 2019-09-02 06:40 | NUR ---
RECEIVED PT FROM ER VIA JUNIOR REPORT GIVEN AT BED SIDE PT IS AAOX4 AMBULATORY HL ON LEFT HAND GAUGE # 22 PATENT, ON TELEMETRY SR N , SKIN IS INTACT, MRSA NARES SWAB PROTOCOL TAKEN AND SENT TO LAB , PT VOIDING WELL AND PT IS ORIENTED TO THE FLOOR CALL LIGHT WITHIN REACH
--- NOTE | 2019-09-02 06:56 | NUR ---
PT WILL BE ENDORSED TO DAY SHIFT NURSE FOR CONTINUE OF CARE
[2019-09-02 07:10] VITALS: BP 145/92
--- NOTE | 2019-09-02 07:10 | NUR ---
RECEIVED REPORT FROM BUTADIENE CONVERTER UTILITY OPERATOR NURSE CECE. PT WAS IN BED AT THE TIME OF GIVING REPORT. PT IS AWAKE AND RESPONSIVE. IV LINE INTACT. NO DISTRESS OF COMPLAINS OF CHEST PAIN REPORTED. SAFETY MEASURES IN PLACE. LUNG ASSESSMENT CLEAR. SKIN INTACT. ADMISSION ASSESSMENT DONE. CALL LIGHT IN REACH.
--- NOTE | 2019-09-02 09:08 | NUR ---
PATIENT HAS BEEN SCREENED AND CATEGORIZED MODERATE NUTRITION RISK. PATIENT WILL BE SEEN WITHIN 3-5 DAYS OF ADMISSION. 09/03/19 09/05/[address]
--- NOTE | 2019-09-02 09:30 | NUR ---
PT IS IN BED TAKING TO FAMILY OVER PHONE. MORNING MEDICATIONS GIVEN PER DR KING ORDERED OVER PHONE. WILL CONTINUE TO MONITOR. CALL LIGHT IN REACH.
[2019-09-02] MEDS: FUROSEMIDE 40 MG TAB PO SCH ×2 (09:32→17:16)
[2019-09-02] MEDS: GABAPENTIN 300 MG CAP PO SCH ×2 (09:32→20:03)
[2019-09-02] MEDS: LOSARTAN 50 MG TAB PO SCH (09:33)
[2019-09-02] MEDS: CARVEDILOL 3.125 MG TAB PO SCH ×2 (09:33→20:03)
[2019-09-02] MEDS ORDERED: ONDANSETRON 4 MG/2 ML VIAL IVP PRN (09:55)
--- NOTE | 2019-09-02 10:39 | NUR ---
DC PLANNIN YRS OLD FEMALE PATIENT WAS ADMITTED FROM HOME WITH A DX OF CHF. PT HAS A HX OF CARDIAC DISORDER RECENTLY D/C FROM [facility] TO [facility] FOR CARDIAC CATHETERIZATION BY DR FERNANDO Corrales. CXR SHOWED CLEAR LUNGS AND STABLE CARDIOMEGALY. TROPONIN ELEVATED X2 AND BNP. ADMINISTERED IV LASIX AND IV MORPHINE. CONSULTED WITH PEDIATRIC PHYSIATRIST DR FERNANDO Corrales. DC PLAN TO GO HOME WHEN STABLE CM TO FOLLOW. Addendum: 09/03/19 at 1119 by Tanya Sharif CM SEEN BY PULGINNY - PLAN FOR SLEEP STUDY AND BE PLACED ON CPAP OR BIPAP AND SHOULD BE FOLLOWED OP WITH HER CONTRACTED INSURANCE. COORDINATOR JOSE OF [facility] MADE AWARE. INFORMED HER THAT NO ORDERS YET AT THIS TIME BUT THAT'S PULMO'S RECOMMENDATION. SHE STATED IF IN ANY CASE WE GET THE ORDER TO SEND IT OVER TO [facility]. SHE STATED THE CM IN CHARGE FOR THIS PATIENT IS DARYA ROSE AND SHE IS THE COORDINATOR. Addendum: 09/03/19 at 1420 by Tanya Sharif CM TROP TRENDING - LATEST 0.177. Addendum: 09/04/19 at 1101 by Tanya Sharif CM PT COORDINATOR JOSE OF [facility] UPDATED OF THE PATIENT'S CONDITION AND MIGHT BE NEEDING SLEEP STUDY AND CPAP/BIPAP PENDING ORDER. SHE STATED JUST TO GO AHEAD AND FAX THE ORDER IN ONCE I HAVE IT. Addendum: 09/04/19 at 1545 by Tanya Sharif CM [facility]TA[facility]ED [facility] [phone], NO ANSWER. LEFT MESSAGE. WILL FOLLOW UP Addendum: 09/05/19 at 1212 by Linda Keys CALLED TO SCHEDULED A FOLLOW UP APPOINTMENT FOR PATIENT [phone]. OFFICE IS CLOSED DAILY FOR LUNCH FROM 12:00-2:00 PM, WILL CALL BACK AFTER 2:00 Addendum: 09/05/19 at 1342 by Tanya Sharif DISCUSSED LUCIA'S RECOMMENDATIONS FOR SLEEP STUDY AND CPAP/BIPAP. HE STATED HE WILL HAVE HIS OFFICE PROCESS THE REQUEST. I ALSO INFORMED HIM THAT THE INSURANCE IS AWARE. JOSE [facility] MADE AWARE.
--- NOTE | 2019-09-02 11:39 | NUR ---
PT IS SITTING IN BED. NO COMPLAINS OF PAIN REPORTED. PT TALKING TO FAMILY OVER PHONE. SAFETY MEASURES IN PLACE. CALL LIGHT IN REACH.
--- NOTE | 2019-09-02 11:51 | NUR ---
HAIRPIECE STYLIST NOTE: Basic Screen: Yes High Risk DC Screen [place]: NAYA SHELL Home Relationship: DAUGHTER Pre-Admission Living Arrangements: Lives with Other Prior ADL Independent Current Home Health Name/Tel: N/A Current DME/02 Name/Tel: [facility], [facility] Current Hospice Name/Tel: N/A Current Dialysis Name/Tel: N/A Healthcare Decision Maker: Patient Advance Directive No Physician Orders for Life Sustaining Treatment Form No Patient/Family Have Educational Needs No Information Taught: Community Resources Person Taught: Patient Teaching Tools: Verbal Factors Affecting Learning: None Participation Level: Active Evaluation: Verbalizes Understanding Needs Additional Education: No Discipline: Case Mgt/Social Svcs Tentative Discharge Plan/Destination: No Needs Identified Will require assistance post discharge: No Referred to Plunger Machine Operator: No Tentative Discharge Plan Summary: PATIENT IS A 54-YEAR-OLD FEMALE ADMITTED FOR CHF. PATIENT HAS PMHX OF ASTHMA, CHF, COPD, DIABETES, AND HYPERTENSION. PATIENT WAS ADMITTED FROM HOME WHERE SHE LIVES WITH HER DAUGHTER. SW MET PATIENT AT BEDSIDE TO VERIFY DEMOGRAPHICS. PATIENT STATED THAT SHE REQUIRES ASSISTANCE WITH ADLS. PATIENT STATED THAT HER DAUGHTER NAYA SHELL LIVES WITH HER AND IS HER IHSS WORKER. PATIENT STATED THAT PATIENT RECEIVES 55 HOURS MONTHLY THROUGH IHSS. PATIENT STATED THAT HER DAUGHTER ASSISTS WITH PREPARING MEALS, TOILETING, AND SHOWERING. PATIENT STATED THAT ALL OF HER NEEDS ARE BEING MET AND REQUESTED IHSS RESOURCES FOR ADDITIONAL HOURS. SW PROVIDED IHSS RESOURCES TO PATIENT. PATIENT REPORTS NO HISTORY OF SUBSTANCE ABUSE OR MENTAL HEALTH. TENTATIVE DISCHARGE PLAN IS FOR PATIENT TO RETURN HOME. NO FURTHER NEEDS IDENTIFIED. Signature: BERTHA OSMAN Date: Sep 02, 2019 Time: 11:51
[2019-09-02 12:00] VITALS: BP 163/97
[2019-09-02] MEDS ORDERED: cloNIDine 0.1 MG TAB PO PRN (12:25)
[2019-09-02] MEDS: BLOOD GLUCOSE MONITORING 1 DEV DEV FS SCH ×3 (12:26→20:03)
--- NOTE | 2019-09-02 12:30 | NUR ---
DR KING ASSESSED PATIENT. PT WAS EATING LUNCH AT THIS TIME. NO DISTRESS NOTED. NO COMPLAINS OF PAIN REPORTED. WILL CONTINUE TO MONITOR. CALL LIGHT IN REACH.
[2019-09-02] MEDS: INSULIN LISPRO SLIDING SCALE 100 UNITS/ML VIAL SUBQ PRN ×3 (12:33→20:09)
[2019-09-02] MEDS ORDERED: ACETAMINOPHEN 325 MG TAB PO PRN (13:00)
[2019-09-02] MEDS ORDERED: DEXTROSE 50% 50 ML SYR IVP PRN (13:00)
[2019-09-02] MEDS ORDERED: LORazepam 2 MG/ML VIAL IVP PRN (13:00)
[2019-09-02] MEDS ORDERED: HYDROcodone/APAP 5/325 MG 1 TAB TAB PO PRN (13:00)
[2019-09-02 13:53] LABS: CREATINE KINASE MB 0.8 ng/mL (0-3.6)
--- NOTE | 2019-09-02 14:30 | NUR ---
PT IS RESTING IN BED WITH EYES OPEN. PT IS COMFORTABLE. NO C/O OF CHEST PAIN. NO DISTRESS NOTED. CALL LIGHT IN REACH. WILL CONTINUE TO MONITOR
--- NOTE | 2019-09-02 14:42 | NUR ---
DR BORREGO WAS INFORMED OF ABG RESULTS PH 7.30 CO2 54.1 HCO3 26.3 PO2 62.9 BE -0.7 DR BORREGO STATED HE WOULD LIKE PT ON NOC BIPAP FOR 6 H 02/28 12
[2019-09-02 16:00] VITALS: BP 107/97
--- NOTE | 2019-09-02 17:57 | NUR ---
PT IS HAVING DINNER AT THIS TIME. PT IS COMFORTABLE. NO C/O OF CHEST PAIN. NO DISTRESS NOTED. CALL LIGHT IN REACH. WILL CONTINUE TO MONITOR
--- NOTE | 2019-09-02 19:22 | NUR ---
SHIFT REPORT GIVEN TO SCALE EXPERT NURSE FOR CONTINUATION OF CARE. PT STABLE. CALL LIGHT IN REACH.
--- NOTE | 2019-09-02 19:23 | NUR ---
RECEIVED BEDSIDE REPORT FROM DAY SHIFT NURSEBELTRAN. PT RESTING IN THE BED, BREATHING EVEN AND UNLABORED TO O2 3LPM VIA NC. SKIN INTACT, WARM AND DRY TO TOUCH. IV SITED ON LH 22G, SL, PATENT, INTACT AND ASYMPTOMATIC. POC REVIEWED WITH PT AND DISCUSSED, PT VERBALIZED UNDERSTANDING. BED IN LOW POSITION, CALL LIGHT WITHIN REACH.
[2019-09-02 20:00] VITALS: BP 128/89
[2019-09-02] MEDS: ATORVASTATIN 20 MG TAB PO SCH (20:03)
[2019-09-02] MEDS: INSULIN LANTUS 100 UNITS/ML 10 ML VIAL SUBQ SCH (20:09)
--- NOTE | 2019-09-02 20:09 | NUR ---
BS CHECKED, 228, GIVEN HUMALOG AND SCHEDULE LANTUS MD ORDERED. GIVEN COREG, LIPITOR, GABAPENTIN MD ORDERED. PT TOLERATED WELL. PUT MEDICATIONS MANUALLY D/T SCANNER WAS NOT WORKING.
--- NOTE | 2019-09-02 21:00 | NUR ---
PT C/O 01/03 BACK PAIN AND WANTED STRONGER PAIN MED THAN NORCO WHEN RN OFFERED IT. PAGED DR. KING REGARDING PT'S PAIN.
[2019-09-02] MEDS ORDERED: MORPHINE SULFATE 2 MG/ML SYR IVP ONE (21:25)
--- NOTE | 2019-09-02 21:28 | NUR ---
RECEIVED CALL FROM DR. FERNANDO Hsu AND RECEIVED ORDER FOR MORPHINE 2MG IVP ONCE. FERNANDO
--- NOTE | 2019-09-02 21:39 | NUR ---
GIVEN MORPHINE MD ORDERED. PT TOLERATED WELL.
--- NOTE | 2019-09-02 22:10 | NUR ---
PT RESTING IN BED. NO ACUTE DISTRESS NOTED.
--- NOTE | 2019-09-02 23:04 | NUR ---
RECEIVED CALL FROM LAB FOR TROPONIN 0.207. NOT REPORTED TO SINCE IT IS TRENDING DOWN.
[2019-09-03] VITALS: BP 120/90
--- NOTE | 2019-09-03 | NUR ---
VS WITHIN PT'S BASELINE. WILL CONTINUE TO MONITOR.
--- NOTE | 2019-09-03 02:10 | NUR ---
PT SLEEPING IN BED COMFORTABLY. NO ACUTE DISTRESS NOTED.
[2019-09-03] MEDS: HYDROcodone/APAP 5/325 MG 1 TAB TAB PO PRN (03:47)
--- NOTE | 2019-09-03 03:47 | NUR ---
PT C/O 09/03 BACK PAIN, GIVEN NORCO MD ORDERED. PT TOLERATED WELL.
[2019-09-03 04:00] VITALS: BP 140/103
--- NOTE | 2019-09-03 04:00 | NUR ---
VS CHECKED, WITHIN PT'S BASELINE. WILL CONTINUE TO MONITOR.
[2019-09-03] MEDS: BLOOD GLUCOSE MONITORING 1 DEV DEV FS SCH ×4 (05:56→21:15)
--- NOTE | 2019-09-03 05:56 | NUR ---
BS CHECKED, 127. NO INSULIN COVERAGE NEEDED.
--- NOTE | 2019-09-03 06:49 | NUR ---
PT IN STABLE CONDITION. WILL ENDORSE TO DAY SHIFT NURSE FOR CONTINUOUS CARE.
[2019-09-03 07:03] LABS: CARBON DIOXIDE 29.5 mmol/L (21-32); CREATININE 1.4 mg/dL (0.6-1.3); POTASSIUM 4.5 mmol/L (3.5-5.1)
--- NOTE | 2019-09-03 07:10 | NUR ---
RECEIVED REPORT FROM NIGHT NURSE FOR CONTINUITY OF CARE, PT IS ASLEEP BUT WOKE UP AND INTRODUCE SELF, PT IS AAOX4, PT AMBULATES, PT HAS LEFT HAND 22G SALINE LOCK, PT IS STABLE, NO SIGNS OF DISTRESS NOTED, RESPIRATIONS ARE EVEN AND UNLABORED ON 2 LITERS NASAL CANNULA, UPDATED WHITEBOARD, SAFETY MEASURES IN PLACE, ALL NEEDS MET AT THIS TIME, WILL CONTINUE TO MONITOR, CALL LIGHT WITHIN REACH.
[2019-09-03 07:26] LABS: BASOPHILS # (AUTO) 0.1 K/uL (0.00-0.22); BASOPHILS % (AUTO) 1.4 % (0.0-2.0); EOSINOPHILS # (AUTO) 0.3 K/uL (0-0.4); EOSINOPHILS % (AUTO) 5.8 % (0.0-4.0); HEMATOCRIT 33.5 % (36-48); HEMOGLOBIN 10.4 g/dL (12.0-16.0); LYMPHOCYTES # (AUTO) 1.8 K/uL (2.5-16.5); LYMPHOCYTES % (AUTO) 36.6 % (20.5-51.1); MEAN CORPUSCULAR HEMOGLOBIN 22 pg (27-31); MEAN CORPUSCULAR HGB CONC 31 g/dL (33-37); MEAN CORPUSCULAR VOLUME 71.4 fL (80-94); MONOCYTES # (AUTO) 0.5 K/uL (0.8-1.0); MONOCYTES % (AUTO) 9.5 % (1.7-9.3); NEUTROPHILS # (AUTO) 2.3 K/uL (1.8-7.7); NEUTROPHILS % (AUTO) 46.7 % (42.2-75.2); PLATELET COUNT (AUTO) 233 K/uL (140-450); RED BLOOD CELL COUNT(AUTO) 4.69 MIL/uL (4.20-5.40); RED CELL DISTRIBUTION WIDTH 20.7 % (11.6-13.7)
[2019-09-03 08:00] VITALS: BP 120/80
[2019-09-03] MEDS: CARVEDILOL 3.125 MG TAB PO SCH ×2 (08:15→21:14)
[2019-09-03] MEDS: GABAPENTIN 300 MG CAP PO SCH ×2 (08:16→21:13)
[2019-09-03] MEDS: LOSARTAN 50 MG TAB PO SCH (08:16)
[2019-09-03] MEDS: FUROSEMIDE 40 MG TAB PO SCH ×2 (08:16→17:19)
--- NOTE | 2019-09-03 08:18 | NUR ---
ADMINISTERED SCHEDULED MEDICATION, MEDICATION EDUCATION GIVEN, PT VERBALIZED UNDERSTANDING, PT IS STABLE, NO SIGNS OF DISTRESS NOTED, RESPIRATIONS ARE EVEN AND UNLABORED ON 2L NASAL CANNULA, CALL LIGHT WITHIN REACH.
--- NOTE | 2019-09-03 10:43 | NUR ---
CALLED DR. RENE NARANJO AT [facility] [phone] TO CLARIFY FREQUENCY ON BIPAP ORDER PLACED AT 1021 SPOKE TO KENNY AVALOS MD NOT IN OFFICE WILL PAGE GAVE CALL BACK NO. [phone] Addendum: 09/03/19 at 1101 by Efraín Oropeza RT REVIEWED PLAN/REPORT AT 0419
--- NOTE | 2019-09-03 11:11 | NUR ---
PT IS RESTING IN BED, PT TALKING ON THE PHONE, PT IS STABLE, NO SIGNS OF DISTRESS NOTED, RESPIRATIONS ARE EVEN AND UNLABORED ON 2L OXYGEN VIA NASAL CANNULA, CALL LIGHT WITHIN REACH.
[2019-09-03 12:00] VITALS: BP 127/94
[2019-09-03] MEDS: INSULIN LISPRO SLIDING SCALE 100 UNITS/ML VIAL SUBQ PRN ×2 (12:14→21:16)
--- NOTE | 2019-09-03 12:16 | NUR ---
ADMINISTERED HUMALOG 2 UNITS FOR BLOOD GLUCOSE OF 167, MEDICATION EDUCATION GIVEN, PT VERBALIZED UNDERSTANDING, PT STABLE, PT TOLERATED WELL, CALL LIGHT WITHIN REACH.
[2019-09-03 12:30] LABS: CREATINE KINASE MB 1.2 ng/mL (0-3.6)
--- NOTE | 2019-09-03 13:30 | NUR ---
PT ASLEEP IN BED, NO SIGNS OF DISTRESS NOTED, RESPIRATIONS ARE EVEN AND UNLABORED ON 2L NASAL CANNULA OXYGEN, PT IS STABLE, CALL LIGHT WITHIN REACH.
--- NOTE | 2019-09-03 15:56 | NUR ---
PT RESTING IN BED, PT ON HER CELLPHONE TALKING TO FAMILY, PT IS STABLE, NO SIGNS OF DISTRESS NOTED, RESPIRATIONS ARE EVEN AND UNLABORED ON 2L NASAL CANNULA OXYGEN, CALL LIGHT WITHIN REACH.
[2019-09-03 16:00] VITALS: BP 131/91
--- NOTE | 2019-09-03 17:26 | NUR ---
ADMINISTERED SCHEDULED MEDICATION, MEDICATION EDUCATION GIVEN, PT VERBALIZED UNDERSTANDING, PT TOLERATED WELL, PT IS STABLE, RESPIRATIONS ARE EVEN AND UNLABORED ON 2L NASAL CANULA O2, CALL LIGHT WITHIN REACH.
[2019-09-03] MEDS ORDERED: MUPIROCIN CA NASAL 2% 1GM TUBE NS SCH (18:00)
[2019-09-03] MEDS ORDERED: CHLORHEXADINE GLUC 2% CLOTH TP SCH (18:00)
--- NOTE | 2019-09-03 19:14 | NUR ---
RECEIVED TORB FOR MORPHINE IVP 2MG ONCE FOR SEVERE PAIN, WILL INPUT ORDERS Addendum: 09/03/19 at 1925 by Anahi Cruz RN TORB FROM [facility]
--- NOTE | 2019-09-03 19:20 | NUR ---
GAVE REPORT TO NIGHT NURSE FOR CONTINUITY OF CARE, PT IS STABLE
[2019-09-03] MEDS ORDERED: MORPHINE SULFATE 2 MG/ML SYR IVP ONE (19:30)
--- NOTE | 2019-09-03 19:30 | NUR ---
RECEIVED REPORT FROM AM RN REGARDING THE PT FOR CONTINUITY OF CARE. PATIENT A/A/OX4, SITTING UPRIGHT IN BED TALKING ON THE PHONE. DENIES PAIN,CHEST PAIN AND SOB AT THIS TIME. ON MOTORIZED SQUAD CAPTAIN, SHOWING SR WITH BBB & ST DEPRESSION,HR-80'S. DISCUSSED POC WITH THE PT AND VERBALIZED UNDERSTANDING.CALL LIGHT WITHIN REACH. WILL CONTINUE POC AND MONITORING.
[2019-09-03 20:00] VITALS: BP 124/87
[2019-09-03] MEDS ORDERED: MORPHINE SULFATE 2 MG/ML SYR ONE (21:10)
[2019-09-03] MEDS: ATORVASTATIN 20 MG TAB PO SCH (21:13)
[2019-09-03] MEDS: INSULIN LANTUS 100 UNITS/ML 10 ML VIAL SUBQ SCH (21:18)
--- NOTE | 2019-09-03 21:30 | NUR ---
ADMINISTERED ALL THE SCHEDULED MEDICATIONS ORDERED AND PT TOLERATED IT WELL. SAFETY PRECAUTION IN PLACED. CALL LIGHT WITHIN REACH.
--- NOTE | 2019-09-03 23:50 | NUR ---
NEW BIPAP NOC START. SKIN GEL BARRIER IN PLACE. SKIN INTACT. EDUCATED PATIENT ON DONNING AND DOFFING OF EQUIPMENT. WILL CONTINUE TO MONITOR.
[2019-09-04] VITALS: BP 117/67
[2019-09-04] MEDS: HYDROcodone/APAP 5/325 MG 1 TAB TAB PO PRN ×2 (00:10→14:08)
--- NOTE | 2019-09-04 00:10 | NUR ---
PT COMPLAINING OF GENERALIZED PAIN AND REQUESTED TO HAVE HER NORCO, GIVEN ORDERED. VSS, AFEBRILE, SATING 99% ON 2L/NC. PT IS ON BIPAP AT THIS TIME ORDERED.
--- NOTE | 2019-09-04 00:15 | NUR ---
PT REQUESTED TO TAKE OFF THE BIPAP AND STATED " I COULDN'T TAKE IT, IT MAKES ME FEEL CLAUSTROPHOBIC". EXPLAINED TO THE PATIENT WHY SHE HAS TO WEAR IT BEFORE GOING TO SLEEP AND THE BENIFIT OF THE BIPAP. PT VERBALIZED UNDERSTANDING AND REQUESTED TO TAKE THE BIPAP OFF. RESPIRATORY THERAPIST IS OUTSIDE AND MADE HER AWARE THAT THE PT IS OFF THE BIPAP MACHINE.CALL LIGHT WITHIN REACH.
--- NOTE | 2019-09-04 00:15 | NUR ---
NOTIFIED BY RN THAT PATIENT WANTED TO REMOVE BIPAP. BIPAP ON STANDBY.
--- NOTE | 2019-09-04 00:30 | NUR ---
PATIENT STATED SHE WOULD LIKE TO TRY BIPAP AGAIN. PLACED PATIENT BACK ON BIPAP. COMFORT NEEDS MET AT THIS TIME. PATIENT TOLERATING BIPAP AT THIS TIME. WILL CONTINUE TO MONITOR.
--- NOTE | 2019-09-04 01:00 | NUR ---
WENT TO CHECK THE PT AND NOTICE THAT THE PT IS BACK ON THE BIPAP MACHINE AND CURRENTLY ASLEEP. SAFETY MEASURES IN PLACED.
[2019-09-04 04:00] VITALS: BP 124/79
--- NOTE | 2019-09-04 04:00 | NUR ---
PT STILL ASLEEP AND TOLERATING THE BIPAP WELL. CHECKED PT VS. ITS STABLE,AFEBRILE,SATING 100% ON FiO2 OF 28%. CALL LIGHT WITHIN REACH.
--- NOTE | 2019-09-04 05:20 | NUR ---
PATIENT TAKEN OFF BIPAP.
[2019-09-04] MEDS: BLOOD GLUCOSE MONITORING 1 DEV DEV FS SCH ×2 (06:14→11:15)
[2019-09-04 06:21] LABS: HEMATOCRIT 33.3 % (36-48); HEMOGLOBIN 10.4 g/dL (12.0-16.0); MEAN CORPUSCULAR HEMOGLOBIN 22 pg (27-31); MEAN CORPUSCULAR HGB CONC 31 g/dL (33-37); MEAN CORPUSCULAR VOLUME 71.4 fL (80-94); PLATELET COUNT (AUTO) 209 K/uL (140-450); RED BLOOD CELL COUNT(AUTO) 4.67 MIL/uL (4.20-5.40); RED CELL DISTRIBUTION WIDTH 20.8 % (11.6-13.7); WHITE BLOOD COUNT (AUTO) 4.2 K/uL (4.8-10.8)
--- NOTE | 2019-09-04 06:23 | NUR ---
PT STABLE. NO ACUTE EVENTS OVERNIGHT. NO S/SX OF DISTRESS NOTED AT THIS TIME. CALL LIGHT WITHIN REACH.WILL ENDORSE THE PT TO THE ONCOMING RN FOR CONTINUITY OF CARE.
[2019-09-04 07:02] LABS: ANION GAP 11.5 (8-16); CARBON DIOXIDE 32.3 mmol/L (21-32); CREATININE 1.3 mg/dL (0.6-1.3); POTASSIUM 3.8 mmol/L (3.5-5.1)
--- NOTE | 2019-09-04 07:20 | NUR ---
RECEIVED REPORT FROM LINING STUFFER RN, [place], FOR CONTINUITY OF CARE. PT IS ASLEEP AND IN BED. BIPAP USED BY PT. LAST NIGHT. AAOX4, PT AMBULATES, PT HAS LEFT HAND 22G SALINE LOCK, PT IS STABLE, NO SIGNS OF DISTRESS NOTED, RESPIRATIONS ARE EVEN AND UNLABORED ON 2 LITERS NASAL CANNULA, UPDATED WHITEBOARD, SAFETY MEASURES IN PLACE, ALL NEEDS MET AT THIS TIME, CALL LIGHT WITHIN REACH, POC DISCUSSED, WILL CONTINUE TO MONITOR.
[2019-09-04 07:50] LABS: EOSINOPHILS % (MANUAL) 2 % (0-4); LYMPHOCYTES % (MANUAL) 45 % (20-46); MONOCYTES % (MANUAL) 10 % (5-12)
[2019-09-04 08:00] VITALS: BP 119/80
--- NOTE | 2019-09-04 09:54 | NUR ---
[facility] V60 BIPAP AT BEDSIDE
[2019-09-04] MEDS: CARVEDILOL 3.125 MG TAB PO SCH (10:13)
[2019-09-04] MEDS: LOSARTAN 50 MG TAB PO SCH (10:13)
[2019-09-04] MEDS: GABAPENTIN 300 MG CAP PO SCH (10:16)
[2019-09-04] MEDS: FUROSEMIDE 40 MG TAB PO SCH (10:17)
--- NOTE | 2019-09-04 11:15 | NUR ---
BLOOD GLUCOSE TAKEN WITH VALUE OF 154. INSULIN COVERAGE NEEDED. WILL CONTINUE TO MONITOR.
[2019-09-04] MEDS: INSULIN LISPRO SLIDING SCALE 100 UNITS/ML VIAL SUBQ PRN (11:18)
--- NOTE | 2019-09-04 11:20 | NUR ---
2 UNITS OF HUMALOG GIVEN. NO SIGNS OF DISTRESS. PT. COMPLAINS OF HEADACHE 09/03. WILL MEDICATE WITH NORCO PO. WILL CONTINUE TO MONITOR.
[2019-09-04 12:00] VITALS: BP 129/77
--- NOTE | 2019-09-04 12:50 | NUR ---
DR. KING BY THE BEDSIDE. NEW ORDERS FOR DISCHARGE GIVEN. DISCHARGE TEACHINGS GIVEN TO PT. BY DR. KING. WILL FOLLOW THROUGH.
[2019-09-04 13:57] VITALS: BP 129/77
--- NOTE | 2019-09-04 14:25 | NUR ---
PT. DISCHARGED TO HOME WITH DAUGHTER VIA WHEELCHAIR. NO SIGNS OF DISTRESS NOTED AND PT. VERBALIZES NO PAIN. DISCHARGE TEACHINGS GIVEN, PT. VERBALIZES UNDERSTANDING. DISCHARGE PAPERWORKS SIGNED. IV SITE REMOVED, TELE MONITOR REMOVED AND ARMBANDS REMOVED.
--- NOTE | 2019-09-05 14:23 | NUR ---
SCHEDULED PATIENT FOLLOW UP APPOINTMENT WITH DR. FERNANDO GLOVER ON Monday AT 2:45 PM. SCHEDULED TWO WEEK FOLLOW UP WITH DR. DALE KING ON MONDAY SEPTEMBER 16, 2019 AT 4:30 PM. [phone]. [address] [place] [address] [place] [address]. CALLED PATIENT AND NOTIFIED THEM OF APPOINTMENTS.
[2019-09-15] MEDS ORDERED: BACL10TA4 PO (10:06)
== END 2019-09-04 14:25 | disposition home or self-care (01) | DRG 469 ==
LOC: MED 02:13 → MTU 06:17 → EEVIPCON 06:17
PROVIDERS: ADMIT Preventive Medicine Preventive Medicine/Occupational Environmental Medicine; ATTEND Preventive Medicine Preventive Medicine/Occupational Environmental Medicine
PROC: 5A09357 Assistance with Respiratory Ventilation, Less than 24 Consecutive Hours, Continuous Positive Airway Pressure (ICD-10-PCS; principal; 2019-09-03)
DX: N17.0 Acute kidney failure with tubular necrosis (principal); I50.43 Acute on chronic combined systolic (congestive) and diastolic (congestive) heart failure; J96.10 Chronic respiratory failure, unspecified whether with hypoxia or hypercapnia; I27.20 Pulmonary hypertension, unspecified; E44.0 Moderate protein-calorie malnutrition; E66.2 Morbid (severe) obesity with alveolar hypoventilation; E11.22 Type 2 diabetes mellitus with diabetic chronic kidney disease; E83.51 Hypocalcemia; E11.65 Type 2 diabetes mellitus with hyperglycemia; R07.89 Other chest pain; I25.10 Atherosclerotic heart disease of native coronary artery without angina pectoris; I13.0 Hypertensive heart and chronic kidney disease with heart failure and stage 1 through stage 4 chronic kidney disease, or unspecified chronic kidney disease; D64.9 Anemia, unspecified; E78.5 Hyperlipidemia, unspecified; I27.21 Secondary pulmonary arterial hypertension; I42.0 Dilated cardiomyopathy; N18.9 Chronic kidney disease, unspecified; J44.1 Chronic obstructive pulmonary disease with (acute) exacerbation; Z22.322 Carrier or suspected carrier of Methicillin resistant Staphylococcus aureus; Z86.74 Personal history of sudden cardiac arrest; Z88.8 Allergy status to other drugs, medicaments and biological substances; Z79.4 Long term (current) use of insulin; Z79.899 Other long term (current) drug therapy; Z68.39 Body mass index [BMI] 39.0-39.9, adult; Z83.3 Family history of diabetes mellitus; Z82.3 Family history of stroke; Z82.49 Family history of ischemic heart disease and other diseases of the circulatory system
CPT/HCPCS: 36415; 71045; 80048; 80053; 82550; 82553; 82948; 83880; 84484; 85025; 85610; 85730; 87081; 93005; 94660; 96374; 96375; 96376; 99285; J1815; J1940; J2270; J2405; Q0092

== ENCOUNTER 2019-09-27 22:36 | Emergency (ER) | payer MEDICAID ==
[~2019-09-27] VITALS: Ht 172.7 cm; Wt 117.0 kg
[~2019-09-27 22:36] MED LIST changes: +ALBU0.0912 INH; +ATRMDI IH; +BACL10TA4 PO; -HUM SUBQ
[2019-09-27 22:55] VITALS: BP 160/97
--- NOTE | 2019-09-27 23:25 | NUR ---
PT TRANSFERRED TO BED 04 VIA W/C.
--- NOTE | 2019-09-27 23:40 | NUR ---
54 Y/O FEMALE C/O CHEST PAIN AND SOB X 7 HOURS. 10/10 SHARP, STABBING CHEST PAIN. RADIATING TO NECK AREA. PT TOOK A NORCO AND A COREG. PT USES OXYGEN AT HOME. PLACED ON 2 L NASAL CANNULA. O2 SATURATION 100%. PMH: CHF, COPD, HTN, DM, ASTHMA. ALLX: TRAMADOL, PREDNISONE, IBUPROFEN, KETAMINE.
[2019-09-28] MEDS ORDERED: ONDANSETRON 4 MG/2 ML VIAL IVP ONE (00:15)
[2019-09-28] MEDS ORDERED: ASPIRIN 325 MG TAB PO ONE (00:15)
[2019-09-28] MEDS ORDERED: MORPHINE SULFATE 4 MG/ML SYR IVP ONE ×2 (00:15→02:35)
[2019-09-28] MEDS ORDERED: ALBUTEROL SULFATE/IPRATROPIU 3 ML SOL IH ONE (00:15)
--- NOTE | 2019-09-28 00:45 | NUR ---
PT AT 3L NC WITH SPO2 BEING AT 100%. NO RESP DISTRESS NOTED.
--- NOTE | 2019-09-28 00:47 | NUR ---
CALLED LAB TO DRAW BLOOD AT THIS TIME.
--- NOTE | 2019-09-28 00:59 | NUR ---
LAB AT BEDSIDE.
[2019-09-28 01:15] LABS: BASOPHILS # (AUTO) 0.1 K/uL (0.00-0.22); BASOPHILS % (AUTO) 1.7 % (0.0-2.0); EOSINOPHILS # (AUTO) 0.2 K/uL (0-0.4); EOSINOPHILS % (AUTO) 4.8 % (0.0-4.0); HEMATOCRIT 33.8 % (36-48); HEMOGLOBIN 10.4 g/dL (12.0-16.0); LYMPHOCYTES % (AUTO) 41.6 % (20.5-51.1); MEAN CORPUSCULAR HEMOGLOBIN 22 pg (27-31); MEAN CORPUSCULAR HGB CONC 31 g/dL (33-37); MEAN CORPUSCULAR VOLUME 71.2 fL (80-94); MONOCYTES # (AUTO) 0.2 K/uL (0.8-1.0); MONOCYTES % (AUTO) 4.8 % (1.7-9.3); NEUTROPHILS # (AUTO) 2.2 K/uL (1.8-7.7); NEUTROPHILS % (AUTO) 47.1 % (42.2-75.2); PLATELET COUNT (AUTO) 226 K/uL (140-450); RED BLOOD CELL COUNT(AUTO) 4.74 MIL/uL (4.20-5.40); RED CELL DISTRIBUTION WIDTH 20.3 % (11.6-13.7); WHITE BLOOD COUNT (AUTO) 4.8 K/uL (4.8-10.8)
--- NOTE | 2019-09-28 01:40 | NUR ---
CRITICAL LAB REPORTING: TROP: 0.267 MIRA MACE.
[2019-09-28 01:43] LABS: CREATINE KINASE MB 0.6 ng/mL (0-3.6)
[2019-09-28 01:59] LABS: ALBUMIN 3.2 g/dL (3.4-5.0); ANION GAP 17.1 (8-16); CREATININE 1.3 mg/dL (0.6-1.3); POTASSIUM 4.1 mmol/L (3.5-5.1); TOTAL BILIRUBIN 0.4 mg/dL (0.0-1.0)
--- NOTE | 2019-09-28 02:43 | NUR ---
MEDICATING WITH MORPHINE IVP. NO DISTRESS NOTED.
[2019-09-28 03:24] VITALS: BP 106/70
--- NOTE | 2019-09-28 03:24 | NUR ---
Patient discharged with v/s stable. Written and verbal after care instructions given and explained. Patient verbalized understanding. Wheel Chair Assisted with to car. All questions addressed prior to discharge. ID Band Removed. Advised to follow up with PMD.
== END 2019-09-28 03:24 | disposition home or self-care (01) ==
LOC: MED 22:36
DX: I50.9 Heart failure, unspecified (principal); E11.9 Type 2 diabetes mellitus without complications; I10 Essential (primary) hypertension; J44.9 Chronic obstructive pulmonary disease, unspecified; J45.909 Unspecified asthma, uncomplicated; Z88.6 Allergy status to analgesic agent; Z88.8 Allergy status to other drugs, medicaments and biological substances; Z88.4 Allergy status to anesthetic agent; Z79.899 Other long term (current) drug therapy
CPT/HCPCS: 36415; 71045; 80053; 82550; 82553; 83690; 83880; 84484; 85025; 94640; 96374; 96375; 96376; 99284; J2270; J2405; Q0092

== ENCOUNTER 2019-09-30 08:29 | Inpatient (IN) | payer MEDICAID ==
[~2019-09-30] VITALS: Ht 172.7 cm; Wt 116.6 kg
[2019-09-30 08:30] VITALS: BP 175/122
--- NOTE | 2019-09-30 08:33 | NUR ---
54 Y/O FEMALE FROM HOME C/O CHEST PAIN WITH SOB SINCE LAST NIGHT. PT STATES CONSTANT SHARP/PRESSURE TO LT SIDE OF CHEST THAT RADIATES TO LT ARM AND BACK. 10/10 PAIN AT THIS TIME. RR EVEN AND DEEP, PT SLIGHTLY USING ACCESSORY MUSCLES WITH INCREASED WORK OF BREATHING. HOB IN FOWLERS POSITION FOR COMFORT. AWAKE AND ALERT PLACED ON TERMITE CONTROL REPRESENTATIVE, PULSE OX, AND BP CUFF. MEDHX: HTN, DM, CHF, COPD ALLERGIES: PREDNISONE, IBUPROFEN, TRAMADOL, KETAMINE
--- NOTE | 2019-09-30 08:34 | NUR ---
DR BANKS AT BEDSIDE EXAMINING PT
[2019-09-30] MEDS ORDERED: MORPHINE SULFATE 4 MG/ML SYR IVP ONE ×2 (08:45→10:30)
[2019-09-30] MEDS ORDERED: ONDANSETRON 4 MG/2 ML VIAL IVP ONE (08:45)
[2019-09-30 08:55] LABS: BASOPHILS # (AUTO) 0.1 K/uL (0.00-0.22); BASOPHILS % (AUTO) 1.5 % (0.0-2.0); EOSINOPHILS # (AUTO) 0.2 K/uL (0-0.4); EOSINOPHILS % (AUTO) 3.7 % (0.0-4.0); HEMATOCRIT 34.5 % (36-48); HEMOGLOBIN 10.4 g/dL (12.0-16.0); LYMPHOCYTES # (AUTO) 1.9 K/uL (2.5-16.5); LYMPHOCYTES % (AUTO) 36.5 % (20.5-51.1); MEAN CORPUSCULAR HEMOGLOBIN 22 pg (27-31); MEAN CORPUSCULAR HGB CONC 30 g/dL (33-37); MEAN CORPUSCULAR VOLUME 71.4 fL (80-94); MONOCYTES # (AUTO) 0.3 K/uL (0.8-1.0); NEUTROPHILS # (AUTO) 2.7 K/uL (1.8-7.7); NEUTROPHILS % (AUTO) 52.3 % (42.2-75.2); PLATELET COUNT (AUTO) 256 K/uL (140-450); RED BLOOD CELL COUNT(AUTO) 4.83 MIL/uL (4.20-5.40); RED CELL DISTRIBUTION WIDTH 19.9 % (11.6-13.7); WHITE BLOOD COUNT (AUTO) 5.2 K/uL (4.8-10.8)
--- NOTE | 2019-09-30 09:03 | NUR ---
XRAY AT BEDSIDE
[2019-09-30 09:04] LABS: ANION GAP 10.9 (8-16); CARBON DIOXIDE 29.2 mmol/L (21-32); CREATININE 1.3 mg/dL (0.6-1.3); POTASSIUM 4.1 mmol/L (3.5-5.1)
[2019-09-30 09:09] LABS: PROTHROMBIN TIME 11.4 secs (10.8-13.4)
[2019-09-30 09:10] LABS: ALBUMIN 3.1 g/dL (3.4-5.0); TOTAL BILIRUBIN 0.4 mg/dL (0.0-1.0)
--- NOTE | 2019-09-30 09:33 | NUR ---
TROPONIN 0.282-- CRITICAL VALUE RECEIVED FROM LAB
--- NOTE | 2019-09-30 10:21 | NUR ---
PT RESTING IN BED ON CELL PHONE AWAKE AND ALERT. RR EVEN AND UNLABORED. TOLERABLE PAIN AT THIS TIME. VSS. WILL CONTINUE TO MONITOR
--- NOTE | 2019-09-30 10:28 | NUR ---
PT C/O INCREASED PAIN AT THIS TIME, DR BANKS MADE AWARE
--- NOTE | 2019-09-30 11:23 | NUR ---
DECREASE IN PAIN AFTER MORPHINE. AWAKE AND ALERT. RR EVEN AND UNLABORED. VSS
[2019-09-30 13:05] VITALS: BP 150/100
--- NOTE | 2019-09-30 13:05 | NUR ---
RECEIVED PATIENT VIA GURNEY FROM ER NURSE, RHONDA, FOR CONTINUITY OF CARE. PATIENT IS ABLE TO AMBULATE TOWARDS BED. AAOX4, ABLE TO MAKE NEEDS KNOWN AND FOLLOW COMMANDS. MRSA SWAB TAKEN, NO SIGNS OF DISTRESS NOTED. PATIENT ON UNIVERSAL FALL PRECAUTION. PATIENT IS ON 2LPM O2 VIA NC, RESPIRATIONS EVEN AND UNLABORED, WITH SAO2 AT 100%. IV SITE ON THE RIGHT HAND 20G SL, PATENT AND ABLE TO FLUSH WELL. POC DISCUSSED AND PATIENT VERBALIZES UNDERSTANDING. BED ON LOW, CALL LIGHT WITHIN REACH. WILL CONTINUE TO MONITOR.
--- NOTE | 2019-09-30 13:10 | NUR ---
Patient will be admitted to care of DR MEJIA. Admited to TELE. Will go to room 126B. Belongings list completed. Report to BELINDA LEAVITT.
[2019-09-30] MEDS ORDERED: ACETAMINOPHEN 325 MG TAB PO PRN (13:15)
[2019-09-30] MEDS ORDERED: LORazepam 2 MG/ML VIAL IVP PRN (13:15)
[2019-09-30] MEDS ORDERED: HYDROcodone/APAP 5/325 MG 1 TAB TAB PO PRN ×3 (13:15)
[2019-09-30] MEDS ORDERED: ALBUTEROL HFA MDI 90 MCG/ACTUATION 8 GM INH PRN (13:15)
[2019-09-30] MEDS ORDERED: DEXTROSE 50% 50 ML SYR IVP PRN (13:15)
[2019-09-30] MEDS ORDERED: ONDANSETRON 4 MG/2 ML VIAL IVP PRN (13:15)
--- NOTE | 2019-09-30 13:20 | NUR ---
DR. KING BY THE BEDSIDE. PATIENT IS ASSESSED AND ADMIT ORDERS WERE GIVEN. WILL FOLLOW THROUGH. WILL CONTINUE TO MONITOR.
[2019-09-30] MEDS ORDERED: IPRATROPIUM 0.02% 0.5 MG/2.5 ML NEBU INH PRN (13:40)
[2019-09-30 14:38] LABS: CREATINE KINASE MB 0.9 ng/mL (0-3.6)
[2019-09-30 16:00] VITALS: BP 155/116
[2019-09-30] MEDS: FUROSEMIDE 40 MG TAB PO SCH (16:09)
[2019-09-30] MEDS: BLOOD GLUCOSE MONITORING 1 DEV DEV FS SCH ×2 (16:13→20:20)
[2019-09-30] MEDS: BACLOFEN 10 MG TAB PO SCH (16:13)
--- NOTE | 2019-09-30 16:15 | NUR ---
2 UNITS OF INSULIN GIVEN FOR BLOOD GLUCOSE OF 197. NO SIGNS OF DISTRESS NOTED. AFTERNOON MEDICATIONS GIVEN. WILL CONTINUE TO MONITOR.
[2019-09-30] MEDS: INSULIN LISPRO SLIDING SCALE 100 UNITS/ML VIAL SUBQ PRN ×2 (16:16→20:27)
[2019-09-30] MEDS ORDERED: NON-FORMULARY ITEM (Ipratropium Bromide* (Atrovent Hfa Mdi*) 2 PUFF) IH SCH (17:00)
--- NOTE | 2019-09-30 17:02 | NUR ---
RECEIVED CRITICAL TROPONIN VALUE FROM LAB, CYNTHIA, OF 0.283. REPORTED TO DR. KING, NO NEW ORDERS GIVEN. WILL CONTINUE TO MONITOR.
--- NOTE | 2019-09-30 17:25 | NUR ---
CALLED DR. IKNG REGARDING PATIENT'S HIGH BLOOD PRESSURE OF 155/116. NEW ORDERS TO GIVE CLONIDINE PRN. WILL FOLLOW THROUGH.
--- NOTE | 2019-09-30 19:05 | NUR ---
RECEIVED REPORT FROM DAY SHIFT NURSE. PATIENT IN BED. AWAKE, ALERT, AND ORIENTED. RESPIRATIONS EVEN AND UNLABORED. ON O2 2LPM/NC. SKIN IS WARM, DR, AND INTACT. ABDOMEN IS SOFT AND NON-TENDER. IV ACCESS NOTED ON RIGHT HAND GAUGE 20, SALINE LOCKED. PT DENIES ANY PAIN OR DISTRESS AT THIS TIME. NO REQUESTS MADE. PLAN OF CARE DISCUSSED. PT VERBALIZED UNDERSTANDING. PT KEPT COMFORTABLE. SAFETY MEASURES IN PLACE. CALL LIGHT WITHIN REACH. WILL CONTINUE TO MONITOR.
[2019-09-30] MEDS: CLONIDINE HYDROCHLORIDE 0.1 MG TAB PO PRN (19:29)
--- NOTE | 2019-09-30 19:39 | NUR ---
PT COMPLAINS OF 10/10 PAIN ON HER HEAD,NECK, AND SHOULDERS. PRN PAIN MEDICATION GIVEN ORDERED. WILL CONTINUE TO MONITOR.
[2019-09-30 20:00] VITALS: BP 144/93
[2019-09-30] MEDS: carvediloL 3.125 MG TAB PO SCH (20:18)
[2019-09-30] MEDS: ATORVASTATIN 20 MG TAB PO SCH (20:19)
[2019-09-30] MEDS: GABAPENTIN 300 MG CAP PO SCH (20:19)
[2019-09-30] MEDS: INSULIN LANTUS 100 UNITS/ML 10 ML VIAL SUBQ SCH (20:27)
--- NOTE | 2019-09-30 20:28 | NUR ---
ROUNDS MADE. PT IN BED RESTING. VITAL SIGNS STABLE AT THIS TIME. NO COMPLAINTS OF PAIN AT THIS TIME. SCHEDULED MEDS GIVEN ORDERED. BLOOD SUGAR 231. INSULIN COVERAGE GIVEN ORDERED. NO REQUESTS MADE AT THIS TIME. PT KEPT COMFORTABLE. CALL LIGHT WITHIN REACH. WILL CONTINUE TO MONITOR.
--- NOTE | 2019-09-30 22:11 | NUR ---
PT ASLEEP. HOB ELEVATED. RESPIRATIONS EVEN AND UNLABORED. O2 IN PLACE. SAFETY MEASURES IN PLACE. CALL LIGHT WITHIN REACH. WILL CONTINUE TO MONITOR.
[2019-10-01] VITALS: BP 128/89
--- NOTE | 2019-10-01 00:20 | NUR ---
ROUNDS MADE. VITAL SIGNS STABLE. PT DENIES ANY PAIN OR DISCOMFORT AT THIS TIME. PROVIDED ICE CHIPS REQUESTED. PT KEPT COMFORTABLE. CALL LIGHT WITHIN REACH. WILL CONTINUE TO MONITOR.
--- NOTE | 2019-10-01 02:14 | NUR ---
PT ASLEEP. HOB ELEVATED. O2 IN PLACE. RESPIRATIONS EVEN AND UNLABORED. NO S/SX OF DISTRESS NOTED. PT KEPT COMFORTABLE. WILL CONTINUE TO MONITOR.
[2019-10-01 04:00] VITALS: BP 160/102
[2019-10-01] MEDS: CLONIDINE HYDROCHLORIDE 0.1 MG TAB PO PRN (04:15)
--- NOTE | 2019-10-01 04:15 | NUR ---
VITAL SIGNS TAKEN. BP 160/102. PRN CLONIDINE GIVEN ORDERED. PT DENIES ANY PAIN OR DISCOMFORT AT THIS TIME. ICE CHIPS PROVIDED PER PATIENT REQUEST. SAFETY MEASURES IN PLACE. CALL LIGHT WITHIN REACH. WILL CONTINUE TO MONITOR.
[2019-10-01] MEDS: BLOOD GLUCOSE MONITORING 1 DEV DEV FS SCH ×4 (06:00→21:27)
[2019-10-01] MEDS: INSULIN LISPRO SLIDING SCALE 100 UNITS/ML VIAL SUBQ PRN ×3 (06:06→21:16)
--- NOTE | 2019-10-01 06:08 | NUR ---
BLOOD SUGAR 152. INSULIN COVERAGE GIVEN ORDERED. NO REQUESTS MADE AT THIS TIME. KEPT COMFORTABLE. CALL LIGHT WITHIN REACH. WILL CONTINUE TO MONITOR.
[2019-10-01 06:35] LABS: ANION GAP 9.5 (8-16); CARBON DIOXIDE 31.9 mmol/L (21-32); CREATININE 1.5 mg/dL (0.6-1.3); POTASSIUM 4.4 mmol/L (3.5-5.1)
[2019-10-01 06:47] LABS: MAGNESIUM 1.8 mg/dL (1.8-2.4); PHOSPHORUS 5.7 mg/dL (2.5-4.9)
[2019-10-01 06:57] LABS: BASOPHILS # (AUTO) 0.1 K/uL (0.00-0.22); BASOPHILS % (AUTO) 2.7 % (0.0-2.0); EOSINOPHILS # (AUTO) 0.2 K/uL (0-0.4); EOSINOPHILS % (AUTO) 4.4 % (0.0-4.0); HEMATOCRIT 34.3 % (36-48); HEMOGLOBIN 10.4 g/dL (12.0-16.0); LYMPHOCYTES # (AUTO) 1.6 K/uL (2.5-16.5); LYMPHOCYTES % (AUTO) 37.9 % (20.5-51.1); MEAN CORPUSCULAR HEMOGLOBIN 22 pg (27-31); MEAN CORPUSCULAR HGB CONC 30 g/dL (33-37); MEAN CORPUSCULAR VOLUME 72.7 fL (80-94); MONOCYTES # (AUTO) 0.3 K/uL (0.8-1.0); MONOCYTES % (AUTO) 6.6 % (1.7-9.3); NEUTROPHILS % (AUTO) 48.4 % (42.2-75.2); PLATELET COUNT (AUTO) 246 K/uL (140-450); RED BLOOD CELL COUNT(AUTO) 4.72 MIL/uL (4.20-5.40); RED CELL DISTRIBUTION WIDTH 20.5 % (11.6-13.7); WHITE BLOOD COUNT (AUTO) 4.2 K/uL (4.8-10.8)
--- NOTE | 2019-10-01 07:05 | NUR ---
ENDORSED TO DAY SHIFT NURSE FOR CONTINUITY OF CARE. PT IS IN STABLE CONDITION.
--- NOTE | 2019-10-01 07:05 | NUR ---
RECEIVED REPORT FROM NIGHT NURSE FOR CONTINUITY OF CARE, PT IS STABLE, PT AAOX4, PT IS ASLEEP, NO SIGNS OF DISTRESS NOTED, PT HAS RIGHT HAND 20G SALINE LOCK, PT ON 2L NASAL CANNULA OXYGEN, BED IN LOW POSITION, SAFETY MEASURES IN PLACE, CALL LIGHT WITHIN REACH, WILL CONTINUE TO MONITOR,
[2019-10-01 08:00] VITALS: BP 148/128
[2019-10-01] MEDS: GABAPENTIN 300 MG CAP PO SCH ×2 (08:26→21:25)
[2019-10-01] MEDS: BACLOFEN 10 MG TAB PO SCH ×3 (08:27→17:38)
[2019-10-01] MEDS: carvediloL 3.125 MG TAB PO SCH ×2 (08:27→21:27)
[2019-10-01] MEDS: FUROSEMIDE 40 MG TAB PO SCH ×2 (08:27→17:38)
[2019-10-01] MEDS: LOSARTAN 50 MG TAB PO SCH (08:27)
--- NOTE | 2019-10-01 08:27 | NUR ---
PATIENT HAS BEEN SCREENED AND CATEGORIZED MODERATE NUTRITION RISK. PATIENT WILL BE SEEN WITHIN 3-5 DAYS OF ADMISSION. 10/02/19 10/04/[address]
--- NOTE | 2019-10-01 08:31 | NUR ---
ADMINISTERED SCHEDULED MEDICATION, MEDICATION EDUCATION GIVEN, PT VERBALIZED UNDERSTANDING, PT TOLERATED MEDICATION, PT IS STABLE, NO SIGNS OF DISTRESS NOTED, CALL LIGHT WITHIN REACH.
--- NOTE | 2019-10-01 08:44 | NUR ---
PAN RECLAIM PROCESSOR NOTE: Patient's Orientation Person Situation Place Time Information Provided By PATIENT Comments SW MET WITH PATIENT AT BEDSIDE. PATIENT WAS LAST DISCHARGED 09/21/2019. PREVIOUS ASSESSMENT IS CONSISTENT. Satellite Project Site Monitor, Realtionship and Phone Number ESTEFANIA BOWENS DAUGHTER [phone] Healthcare Power of Wind Turbine Electrical Engineer No Does Patient Have a POLST No Identifying Problems No Social Work Triggers Is A Social Work Consult Needed No Mandate Report Filed No Explanation Of Identifying Problems PATIENT IS A 54-YEAR-OLD FEMALE ADMITTED FOR CHEST PAIN. PATIENT HAS PMHX OF ASTHMA, CHF, COPD, DIABETES, AND HYPERTENSION. Admitted From Home Pre-Admission Level Of Functioning Status Total Care Prior Resources/Services Used In Last 12 Months [facility] Prior Resources/Service Comments PATIENT RECEIVES 40 HOURS A MONTH FROM [facility]. Prior DME Home Oxygen Walker Living Situation Lives With Family House Patient Had Caregiver Yes Name and Contact Number Of Designated Caregiver NAYA SHELL - [phone] Home Support CG/Fam Able To Meet Need Explanation Of Home Support PATIENT'S CAREGIVER/DAUGHTER NAYA SHELL LIVES WITH PATIENT. Financial Issues No Known Financial Issue Referral To The Financial Counselor Needed No Factors/Needs No D/C Needs Identified Pt/Rep Participated In Discharge Plan Yes Patient/Family Agress With Discharge Plan Yes Discharge Plan Comments TENTATIVE DISCHARGE PLAN IS FOR PATIENT TO RETURN HOME. DC Plan Status Initiated
--- NOTE | 2019-10-01 11:30 | NUR ---
PT BLOOD GLUCOSE WAS 147, NO COVERAGE NEEDED
--- NOTE | 2019-10-01 11:35 | NUR ---
PT IS STABLE, RESTING IN BED, NO SIGNS OF DISTRESS NOTED, CALL LIGHT WITHIN REACH.
[2019-10-01 12:00] VITALS: BP 93/73
--- NOTE | 2019-10-01 13:19 | NUR ---
ADMINISTERED SCHEDULED MEDICATION, MEDICATION EDUCATION GIVEN, PT VERBALIZED UNDERSTANDING, PT TOLERATED MEDICATION WELL, PT IS STABLE, NO SIGNS OF DISTRESS NOTED, CALL LIGHT WITHIN REACH.
--- NOTE | 2019-10-01 14:32 | NUR ---
REPORTED TO DR BELEN KING PT COMPLAINING OF SEVERE ABDOMINAL PAIN, PT STATES SHE NEEDS TO POOP, RECEIVED TORB FOR COLACE 100MG BID, GIVE TYLENOL FOR ABDOMINAL PAIN, WILL INPUT THE ORDERS AND CARRY THEM OUT.
[2019-10-01 14:48] LABS: CREATINE KINASE MB 1.3 ng/mL (0-3.6)
--- NOTE | 2019-10-01 14:51 | NUR ---
ADMINISTERED TYLENOL FOR ABDOMINAL PAIN PER MD ORDER, MEDICATION EDUCATION GIVEN, PT STATES IT MAY NOT HELP BUT SHE WOULD TRY IT, PT TOLERATED MEDICATION OKAY, PT IS STABLE, CALL LIGHT WITHIN REACH.
[2019-10-01 16:00] VITALS: BP 132/84
--- NOTE | 2019-10-01 17:40 | NUR ---
ADMINISTERED SCHEDULED MEDICATION, MEDICATION EDUCATION GIVEN, PT VERBALIZED UNDERSTANDING, PT TOLERATED WELL, PT IS STABLE, NO SIGNS OF DISTRESS NOTED, CALL LIGHT WITHIN REACH.
--- NOTE | 2019-10-01 19:14 | NUR ---
ENDORSE PT TO NIGHT NURSE FOR CONTINUITY OF CARE, PT STABLE
--- NOTE | 2019-10-01 19:15 | NUR ---
RECEIVED BEDSIDE REPORT FROM DAY SHIFT NURSE. PT IS AWAKE AND ALERT. A&O X 4. PT IS ON 2L NC AND RESPIRATIONS ARE EVEN AND UNLABORED. SKIN IS WARM, DRY, AND INTACT. RIGHT HAND IV 22 GAUGE SALINE LOCK. IV IS PATENT AND NO SIGNS OF INFECTION. BED IS IN LOWEST POSITION AND CALL LIGHT IS WITHIN REACH. PLAN OF CARE WAS DISCUSSED.
[2019-10-01 20:00] VITALS: BP 158/98
--- NOTE | 2019-10-01 21:00 | NUR ---
PT IS AWAKE AND ALERT. A&O X 4. SHE IS UP TO THE RESTROOM AND HAD A BOWEL MOVEMENT. RESPIRATIONS ARE EVEN AND UNLABORED AT THIS TIME. PT IS STABLE AT THIS TIME.
[2019-10-01] MEDS: INSULIN LANTUS 100 UNITS/ML 10 ML VIAL SUBQ SCH (21:16)
[2019-10-01] MEDS: ATORVASTATIN 20 MG TAB PO SCH (21:25)
[2019-10-01] MEDS: DOCUSATE SODIUM 100 MG GELCAP PO SCH (21:25)
--- NOTE | 2019-10-01 21:53 | NUR ---
PT COMPLAINS OF PAIN IN HER HEAD AND BACK AT A RATING OF 6/10. PT STATES THAT IT IS AN ACHING PAIN. PT WAS GIVEN 5/325 MG TAB OF NORCO. WILL CONTINUE TO MONITOR PT'S PAIN LEVEL.
--- NOTE | 2019-10-01 22:20 | NUR ---
RECEIVED REPORT FROM AM SHIFT. PT SEEN AND ASSESSED. FOUND PT ON 2L NASAL CANNULA WITH SPO2 98%. PT IN NO APPARENT RESPIRATORY DISTRESS AT THIS TIME. PRN TX NOT INDICATED AT THIS TIME. WILL CONTINUE TO MONITOR.
--- NOTE | 2019-10-01 23:45 | NUR ---
PT IS AWAKE IN BED. PT WAS ASSISTED TO THE RESTROOM TO VOID. PT WAS A LITTLE DROWSY FROM PAIN MEDICATION, SHE WAS INSTRUCTED TO USE THE CALL LIGHT FOR A BEDPAN NEXT TIME TILL SHE WAS MORE ALERT. VERBALIZED UNDERSTANDING AND WILL CONTINUE TO MONITOR PT. PT IS ON 2L NC WITH O2 SAT AT 98%. BP READING WAS 125/88. NO DISTRESS NOTED.
[2019-10-02] VITALS: BP 125/88
--- NOTE | 2019-10-02 02:05 | NUR ---
PT IS ASLEEP, CHEST RISE IS SYMMETRICAL, AND BREATHING IS UNLABORED. PT IS ON 2 LC NC AND NO RESPIRATORY DISTRESS IS NOTED. NO APPARENT SIGNS OF PAIN AT THIS TIME. CALL LIGHT IS WITHIN REACH, BED ALARM IS ON, AND BED IS IN THE LOWEST POSITION. WILL CONTINUE TO MONITOR.
--- NOTE | 2019-10-02 03:00 | NUR ---
PT IS AWAKE AND ANSWERING QUESTIONS APPROPRIATELY. PT IS ON 2L NC WITH SATURATION OF 98%. NO RESPIRATORY DISTRESS OR SOB. TWITCHING OF THE HANDS WAS NOTED WHEN SHE WAS AWAKE. SOON PT FELL ASLEEP NO TWITCHING OF THE HANDS WAS NOTED. WILL CONTINUE TO MONITOR.
[2019-10-02 04:00] VITALS: BP 141/97
--- NOTE | 2019-10-02 05:00 | NUR ---
PT IS ASLEEP BUT WOKE UP WHEN CALLED BY NAME. O2 SAT IS 99% ON 2L NC. NO RESPIRATORY DISTRESS NOTED AND NO SOB. BP WAS 142/94 AND HR IS 73 ON TELE MONITORING. TELE MONITORING SHOWS SINUS RHYTHM WITH FIRST DEGREE AV AND BBB. CHEST RISE AND FALL IS SYMMETRICAL. PT IS RESTING WITH NO SIGNS OF DISTRESS.
[2019-10-02] MEDS ORDERED: NALOXONE 0.4 MG/ML VIAL ONE (06:29)
[2019-10-02] MEDS ORDERED: NALOXONE 0.4 MG/ML VIAL IVP ONE (06:30)
--- NOTE | 2019-10-02 06:30 | NUR ---
INFORMED DR. DUNCAN BY PHONE THAT PT IS DROWSY AND HAS TWITCHING OF THE ARMS. INFORMED DOCTOR THAT PT RECEIVED NORCO 3/325 MG ALONG COLACE, COREG, LIPITOR, AND NEURONTIN ORDERED AT 2100. DOCTOR VERBALIZED ORDER FOR CT SCAN OF THE HEAD WITH OUT CONTRAST AND NALAXONE 0.4 MG.
[2019-10-02 06:40] LABS: BASOPHILS # (AUTO) 0.1 K/uL (0.00-0.22); BASOPHILS % (AUTO) 1.8 % (0.0-2.0); EOSINOPHILS # (AUTO) 0.2 K/uL (0-0.4); EOSINOPHILS % (AUTO) 3.5 % (0.0-4.0); HEMATOCRIT 32.3 % (36-48); HEMOGLOBIN 9.9 g/dL (12.0-16.0); LYMPHOCYTES % (AUTO) 21.7 % (20.5-51.1); MEAN CORPUSCULAR HEMOGLOBIN 22 pg (27-31); MEAN CORPUSCULAR HGB CONC 31 g/dL (33-37); MEAN CORPUSCULAR VOLUME 71.1 fL (80-94); MONOCYTES # (AUTO) 0.3 K/uL (0.8-1.0); MONOCYTES % (AUTO) 6.2 % (1.7-9.3); NEUTROPHILS # (AUTO) 3.2 K/uL (1.8-7.7); NEUTROPHILS % (AUTO) 66.8 % (42.2-75.2); PLATELET COUNT (AUTO) 243 K/uL (140-450); RED BLOOD CELL COUNT(AUTO) 4.55 MIL/uL (4.20-5.40); RED CELL DISTRIBUTION WIDTH 20.3 % (11.6-13.7); WHITE BLOOD COUNT (AUTO) 4.8 K/uL (4.8-10.8)
--- NOTE | 2019-10-02 06:50 | NUR ---
PT IS BACK FROM CT SCAN OF THE HEAD. PT TOLERATED PROCEDURE WELL. WILL CONTINUE TO MONITOR.
[2019-10-02 07:00] LABS: ANION GAP 10.5 (8-16); CARBON DIOXIDE 32.7 mmol/L (21-32); CREATININE 1.2 mg/dL (0.6-1.3); POTASSIUM 4.2 mmol/L (3.5-5.1)
--- NOTE | 2019-10-02 07:00 | NUR ---
PT RECEIVED 0.4 MG OF NARCAN IVP TO REVERSE THE POSSIBLE EFFECTS OF THE NORCO 5/325 MG TABLET. PT IS AWAKE AND ALERT. A&O X 4. PT IS LESS DROWSY THAN BEFORE. RESPIRATIONS ARE EVEN AND UNLABORED. NO DISTRESS NOTED. BED IS IN LOWEST POSITION, CALL LIGHT IS IN REACH, AND BED ALARM IS ON.
[2019-10-02] MEDS: BLOOD GLUCOSE MONITORING 1 DEV DEV FS SCH ×2 (07:05→11:30)
--- NOTE | 2019-10-02 07:20 | NUR ---
PT IS LESS DROWSY AND A&O X 4. NO SIGNS OF DISTRESS NOTED. BEDSIDE REPORT WAS GIVEN TO DAY SHIFT NURSE FOR CONTINUITY OF CARE.
--- NOTE | 2019-10-02 07:21 | NUR ---
RECEIVED REPORT FROM NIGHT NURSE FOR CONTINUITY OF CARE, PT IS LESS LETHARGIC, PT IS AA0X4, PT IS STABLE, PT ON 2L OXYGEN VIA NC, PT HAS RIGHT HAND 20G SALINE LOCK, PT NEEDS HELP AMBULATING, BED IN LOW POSITION, SAFETY MEASURES IN PLACE, WILL CONTINUE TO MONITOR, CALL LIGHT WITHIN REACH.
[2019-10-02 08:00] VITALS: BP 135/86
--- NOTE | 2019-10-02 08:57 | NUR ---
GAVE REPORT TO NURSE GOMEZ FOR CONTINUITY OF CARE, PT IS STABLE
[2019-10-02] MEDS: LOSARTAN 50 MG TAB PO SCH (09:00)
--- NOTE | 2019-10-02 09:11 | NUR ---
DISCHARGE PLANNING: RECEIVED A CALL FROM [facility] REQUESTING UPDATED CLINICALS. UPDATED CLINICALS SENT TO [phone] Addendum: 10/02/19 at 1153 by Tanya Sharif CM THIS IS A 54 Y/O FEMALE PATIENT FROM HOME, WHO CAME IN DUE TO ACUTE ONSET OF LEFT SUBSTERNAL CHEST PAIN AND SOB. PAST MEDICAL HISTORY INCLUDE ASTHMA, CHF, COPD, DIABETES AND HTN. CURRENT LABS INCLUDE WBC 4.8, H/H 9.9/32.3, NA/K 140/4.2, BUN/CREA 24/1.2, BNP 397. HEAD CT NEGATIVE. PULMO AND CARDIO CONSULT IN PLACE. DC PLAN BACK TO HOME ONCE STABLE. Addendum: 10/03/19 at 4475 by Tanya Sharif CM RECEIVED A CALL FROM [facility], REQUEST[facility] FOR DISCHARGE SUMMARY. COPY SENT.
[2019-10-02] MEDS: FUROSEMIDE 40 MG TAB PO SCH (11:00)
[2019-10-02] MEDS: BACLOFEN 10 MG TAB PO SCH ×2 (11:00→13:35)
[2019-10-02] MEDS: GABAPENTIN 300 MG CAP PO SCH (11:01)
[2019-10-02] MEDS: carvediloL 3.125 MG TAB PO SCH (11:01)
[2019-10-02] MEDS: DOCUSATE SODIUM 100 MG GELCAP PO SCH (11:01)
[2019-10-02] MEDS ORDERED: DOCU-299 PO (13:18)
[2019-10-02] MEDS: INSULIN LISPRO SLIDING SCALE 100 UNITS/ML VIAL SUBQ PRN (13:35)
[2019-10-02 17:23] VITALS: BP 135/86
[2019-10-14] MEDS ORDERED: CALC200T38 PO (12:41)
[2019-10-14] MEDS ORDERED: FAMO20TA13 PO (12:41)
[2019-10-14] MEDS ORDERED: AMOX250C31 PO (12:41)
[2019-10-21] MEDS ORDERED: NITR0.4T2 SL (13:55)
== END 2019-10-02 18:50 | disposition home or self-care (01) | DRG 198 ==
LOC: MED 08:29 → MMU 10:09
PROVIDERS: ADMIT Preventive Medicine Preventive Medicine/Occupational Environmental Medicine; ATTEND Preventive Medicine Preventive Medicine/Occupational Environmental Medicine
DX: I24.8 Other forms of acute ischemic heart disease (principal); I11.0 Hypertensive heart disease with heart failure; M50.30 Other cervical disc degeneration, unspecified cervical region; D64.9 Anemia, unspecified; E11.65 Type 2 diabetes mellitus with hyperglycemia; J44.9 Chronic obstructive pulmonary disease, unspecified; I25.10 Atherosclerotic heart disease of native coronary artery without angina pectoris; I27.20 Pulmonary hypertension, unspecified; Z88.8 Allergy status to other drugs, medicaments and biological substances; E88.09 Other disorders of plasma-protein metabolism, not elsewhere classified; I50.33 Acute on chronic diastolic (congestive) heart failure; E44.1 Mild protein-calorie malnutrition; J96.10 Chronic respiratory failure, unspecified whether with hypoxia or hypercapnia
CPT/HCPCS: 36415; 70450; 71045; 72052; 80048; 80053; 82550; 82553; 82948; 83690; 83735; 83880; 84100; 84484; 85025; 85610; 85730; 87081; 93005; 96374; 96375; 96376; 99285; J1815; J2270; J2310; J2405; J3535; Q0092

== ENCOUNTER 2019-10-09 21:09 | Emergency (ER) | payer MEDICAID ==
[~2019-10-09] VITALS: Ht 172.7 cm; Wt 117.0 kg
[~2019-10-09 21:09] MED LIST changes: +DOCU-299 PO
[2019-10-09 21:23] VITALS: BP 153/109
--- NOTE | 2019-10-09 21:27 | NUR ---
PT BROUGHT TO BED 03 VIA W/C
--- NOTE | 2019-10-09 22:11 | NUR ---
54 Y/O FEMALE C/O CHEST PAIN AND SOB. PT STATES CHEST PRESSURE PAIN 10/10 RADIATING TO RIGHT SIDE. LUNGS SOUNDS CLEAR, ON NASAL CANNULA 2L. O2 SAT 100%. NON PITTING EDEMA ON BLE. PT ALSO C/O ABD PAIN. ACTIVE BS. ABD SOFT, NON TENDER. PMH: CHF, COPD, HTN, DM, ASTHMA, 2L OXYGEN DEPENDENT. ALLERGIES: NSAID, KETAMINE, TRAMADOL, PREDNISONE
[2019-10-09] MEDS ORDERED: MORPHINE SULFATE 4 MG/ML SYR IVP ONE (22:25)
[2019-10-09 22:49] LABS: BASOPHILS # (AUTO) 0.1 K/uL (0.00-0.22); HEMOGLOBIN 10.1 g/dL (12.0-16.0); MEAN CORPUSCULAR HEMOGLOBIN 22 pg (27-31); MONOCYTES # (AUTO) 0.3 K/uL (0.8-1.0); RED BLOOD CELL COUNT(AUTO) 4.66 MIL/uL (4.20-5.40)
[2019-10-09 22:56] LABS: BASOPHILS % (AUTO) 3.1 % (0.0-2.0); EOSINOPHILS # (AUTO) 0.2 K/uL (0-0.4); EOSINOPHILS % (AUTO) 3.1 % (0.0-4.0); HEMATOCRIT 32.7 % (36-48); LYMPHOCYTES # (AUTO) 1.9 K/uL (2.5-16.5); LYMPHOCYTES % (AUTO) 39.5 % (20.5-51.1); MEAN CORPUSCULAR HGB CONC 31 g/dL (33-37); MEAN CORPUSCULAR VOLUME 70.2 fL (80-94); MONOCYTES % (AUTO) 6.7 % (1.7-9.3); NEUTROPHILS # (AUTO) 2.3 K/uL (1.8-7.7); NEUTROPHILS % (AUTO) 47.6 % (42.2-75.2); PLATELET COUNT (AUTO) 228 K/uL (140-450); WHITE BLOOD COUNT (AUTO) 4.9 K/uL (4.8-10.8)
[2019-10-09 23:04] LABS: ALBUMIN 3.1 g/dL (3.4-5.0); ANION GAP 13.1 (8-16); CARBON DIOXIDE 27.9 mmol/L (21-32); CREATININE 1.2 mg/dL (0.6-1.3); TOTAL BILIRUBIN 0.5 mg/dL (0.0-1.0)
[2019-10-09 23:07] LABS: RED CELL DISTRIBUTION WIDTH 19.9 % (11.6-13.7)
--- NOTE | 2019-10-09 23:36 | NUR ---
Dr. Weiner examining patient.
[2019-10-09] MEDS ORDERED: FUROSEMIDE 40 MG/4 ML VIAL IVP ONE (23:55)
[2019-10-10] MEDS ORDERED: HYDROcodone/APAP 5/325 MG 1 TAB TAB PO ONE (00:50)
[2019-10-10] MEDS ORDERED: ONDANSETRON 4 MG ODT PO ONE (00:50)
[2019-10-10 02:45] VITALS: BP 146/107
--- NOTE | 2019-10-10 02:45 | NUR ---
Patient discharged with v/s stable. Written and verbal after care instructions given and explained. Patient alert, oriented and verbalized understanding of instructions. Wheel Chair Assisted with to car. All questions addressed prior to discharge. ID band removed. IV removed Patient advised to follow up with PMD. Opportunity to ask questions provided and answered.
== END 2019-10-10 02:45 | disposition home or self-care (01) ==
LOC: MED 21:09
DX: R07.9 Chest pain, unspecified (principal); E11.9 Type 2 diabetes mellitus without complications; I10 Essential (primary) hypertension; I50.9 Heart failure, unspecified; J44.9 Chronic obstructive pulmonary disease, unspecified
CPT/HCPCS: 36415; 71045; 80053; 82948; 83880; 84484; 85025; 93005; 96374; 96375; 99285; J1940; J2270; Q0092; Q0162

== ENCOUNTER 2019-10-27 21:36 | Emergency (ER) | payer MEDICAID ==
[~2019-10-27] VITALS: Ht 165.1 cm; Wt 107.0 kg
[~2019-10-27 21:36] MED LIST changes: +AMOX250C31 PO; +CALC200T38 PO; +FAMO20TA13 PO; +NITR0.4T2 SL
[2019-10-27 21:54] VITALS: BP 155/106
[2019-10-27 22:28] LABS: BASOPHILS # (AUTO) 0.1 K/uL (0.00-0.22); BASOPHILS % (AUTO) 1.5 % (0.0-2.0); EOSINOPHILS # (AUTO) 0.1 K/uL (0-0.4); EOSINOPHILS % (AUTO) 2.1 % (0.0-4.0); HEMATOCRIT 31.5 % (36-48); HEMOGLOBIN 9.5 g/dL (12.0-16.0); LYMPHOCYTES % (AUTO) 45.3 % (20.5-51.1); MEAN CORPUSCULAR HEMOGLOBIN 21 pg (27-31); MEAN CORPUSCULAR HGB CONC 30 g/dL (33-37); MEAN CORPUSCULAR VOLUME 70.6 fL (80-94); MONOCYTES # (AUTO) 0.4 K/uL (0.8-1.0); MONOCYTES % (AUTO) 9.7 % (1.7-9.3); NEUTROPHILS # (AUTO) 1.9 K/uL (1.8-7.7); NEUTROPHILS % (AUTO) 41.4 % (42.2-75.2); PLATELET COUNT (AUTO) 257 K/uL (140-450); RED BLOOD CELL COUNT(AUTO) 4.45 MIL/uL (4.20-5.40); WHITE BLOOD COUNT (AUTO) 4.5 K/uL (4.8-10.8)
[2019-10-27 22:41] LABS: RED CELL DISTRIBUTION WIDTH 20.5 % (11.6-13.7)
[2019-10-27 22:44] LABS: ALBUMIN 3.3 g/dL (3.4-5.0); CARBON DIOXIDE 27.8 mmol/L (21-32); CREATININE 1.2 mg/dL (0.6-1.3); POTASSIUM 3.8 mmol/L (3.5-5.1); TOTAL BILIRUBIN 0.4 mg/dL (0.0-1.0)
[2019-10-27 22:50] VITALS: BP 150/100
== END 2019-10-27 23:21 | disposition home or self-care (01) ==
LOC: MED 21:36
DX: F45.8 Other somatoform disorders (principal); R07.9 Chest pain, unspecified; J44.9 Chronic obstructive pulmonary disease, unspecified; I11.0 Hypertensive heart disease with heart failure; I50.9 Heart failure, unspecified; E11.9 Type 2 diabetes mellitus without complications; Z79.4 Long term (current) use of insulin; Z79.899 Other long term (current) drug therapy; Z88.5 Allergy status to narcotic agent; Z88.8 Allergy status to other drugs, medicaments and biological substances
CPT/HCPCS: 36415; 71045; 80053; 82948; 83880; 84484; 85025; 93005; 99285

== ENCOUNTER 2019-10-31 01:50 | Emergency (ER) | payer MEDICAID ==
[~2019-10-31] VITALS: Ht 172.7 cm; Wt 117.0 kg
[2019-10-31 01:50] VITALS: BP 169/114
[2019-10-31] MEDS ORDERED: MORPHINE SULFATE 4 MG/ML SYR IM ONE (02:30)
[2019-10-31] MEDS ORDERED: ONDANSETRON 4 MG ODT ONE (02:37)
[2019-10-31] MEDS ORDERED: ONDANSETRON 4 MG ODT PO ONE (02:40)
[2019-10-31 02:50] VITALS: BP 169/114
== END 2019-10-31 02:50 | disposition home or self-care (01) ==
LOC: MED 01:50
DX: R06.02 Shortness of breath (principal); R07.9 Chest pain, unspecified; I11.0 Hypertensive heart disease with heart failure; I50.9 Heart failure, unspecified; E11.9 Type 2 diabetes mellitus without complications; J44.9 Chronic obstructive pulmonary disease, unspecified; Z88.6 Allergy status to analgesic agent; Z88.8 Allergy status to other drugs, medicaments and biological substances; Z79.899 Other long term (current) drug therapy; Z79.4 Long term (current) use of insulin
CPT/HCPCS: 71045; 96372; 99283; J2270; Q0092; Q0162

== ENCOUNTER 2019-11-06 20:22 | Emergency (ER) | payer MEDICAID ==
[~2019-11-06] VITALS: Ht 172.7 cm; Wt 115.7 kg
[2019-11-06 20:29] VITALS: BP 178/114
--- NOTE | 2019-11-06 20:29 | NUR ---
PT W/C ASSITED TO BED #12
--- NOTE | 2019-11-06 20:40 | NUR ---
EKG PERFORMED AT BEDSIDE. SINUS TACHYCARDIA @ 107
--- NOTE | 2019-11-06 21:05 | NUR ---
IV ESTABLISHED, LABS DRAWN AND AT BEDSIDE
--- NOTE | 2019-11-06 21:23 | NUR ---
PT C/O CHEST TIGHTNESS AND PRESSURE X 2 DAYS WITH SYMPTOMS INCREASINGLY WORSE TODAY. PAIN IS TO LEFT CHEST RADIATING INTO LEFT ARM, BILATERAL SHOULDERS, AND NECK. PT STATES SHE TOOK A NITRO 2 HRS PRIOR TO ARRIVAL WITH NO RELIEF. PT DENIES N/T TO EXTREMITIES, NO N/V/D, C/O DIZZINESS. PT RATES PAIN 10/10. ALSO C/O OF BILATERAL LEG PAIN DUE TO PITTING EDEMA (+2) . PT HAS HX OF CHF, COPD, STATES SHE TAKES HER MEDS REGULARLY BUT CONTINUES TO HAVE THESE SAME SYMPTOMS. PT PLACED ON BEDSIDE MONITOR AND EKG DONE, SHOWING SINUS TACHY AT 107. BED IN LOWEST POSITION AND SIDERAIL UP X 1. ALLERGIES - DEXAMETHASONE, IBUPROFEN, KETAMINE HX - CHF, COPD, DM, KIDNEY DX
[2019-11-06] MEDS ORDERED: MORPHINE SULFATE 4 MG/ML SYR IVP ONE (22:05)
--- NOTE | 2019-11-06 22:18 | NUR ---
X-RAY AT BEDSIDE, LAB PICKED OF BLOOD
[2019-11-06 22:24] LABS: BASOPHILS # (AUTO) 0.1 K/uL (0.00-0.22); EOSINOPHILS # (AUTO) 0.2 K/uL (0-0.4); HEMATOCRIT 32.5 % (36-48); LYMPHOCYTES # (AUTO) 2.3 K/uL (2.5-16.5); LYMPHOCYTES % (AUTO) 44.5 % (20.5-51.1); MEAN CORPUSCULAR HEMOGLOBIN 21 pg (27-31); MEAN CORPUSCULAR HGB CONC 31 g/dL (33-37); MEAN CORPUSCULAR VOLUME 68.6 fL (80-94); MONOCYTES # (AUTO) 0.3 K/uL (0.8-1.0); MONOCYTES % (AUTO) 5.8 % (1.7-9.3); NEUTROPHILS # (AUTO) 2.3 K/uL (1.8-7.7); NEUTROPHILS % (AUTO) 44.7 % (42.2-75.2); PLATELET COUNT (AUTO) 277 K/uL (140-450); RED BLOOD CELL COUNT(AUTO) 4.73 MIL/uL (4.20-5.40); RED CELL DISTRIBUTION WIDTH 20.3 % (11.6-13.7); WHITE BLOOD COUNT (AUTO) 5.1 K/uL (4.8-10.8)
[2019-11-06 22:31] LABS: ANION GAP 11.4 (8-16); CARBON DIOXIDE 32.1 mmol/L (21-32); CREATININE 1.1 mg/dL (0.6-1.3); POTASSIUM 3.5 mmol/L (3.5-5.1)
--- NOTE | 2019-11-06 22:35 | NUR ---
PT STAES PAIN IS A LITTLE BETTER 11/03 NOW. PT REMAINS ON BEDSIDE MONITOR. NO DISTRESS NOTED, RESPIRATIONS REGULAR AND UNLABORED.
[2019-11-06] MEDS ORDERED: FUROSEMIDE 40 MG/4 ML VIAL IVP ONE (23:00)
--- NOTE | 2019-11-06 23:09 | NUR ---
COMMODE PLACED AT BEDSIDE WITHIN REACH OF PT, ALONG WITH WIPES.
[2019-11-07] MEDS ORDERED: ASPIRIN 81 MG TAB.CHEW PO ONE (00:10)
--- NOTE | 2019-11-07 00:14 | NUR ---
PT REMAINS ON BEDSIDE MONITOR, RESPIRATIONS REGULAR, EVEN, AND UNLABORED. WILL CONTINUE TO MONITOR PT.
[2019-11-07] MEDS ORDERED: ASPIRIN 81 MG TAB.CHEW ONE (00:26)
--- NOTE | 2019-11-07 00:28 | NUR ---
PT GIVEN ASPIRIN 162MG PO ORDERED. TOLERATED WELL.
[2019-11-07] MEDS ORDERED: HYDROcodone/APAP 5/325 MG 1 TAB TAB PO ONE (00:35)
[2019-11-07 02:14] VITALS: BP 141/95
== END 2019-11-07 02:14 | disposition home or self-care (01) ==
LOC: MED 20:22
DX: R07.9 Chest pain, unspecified (principal)
CPT/HCPCS: 36415; 71045; 80048; 83880; 84484; 85025; 93005; 96374; 96375; 99285; J1940; J2270

== ENCOUNTER 2019-11-12 01:55 | Emergency (ER) | payer MEDICAID ==
[~2019-11-12] VITALS: Ht 170.2 cm; Wt 115.7 kg
[2019-11-12 02:05] VITALS: BP 158/105
--- NOTE | 2019-11-12 02:07 | NUR ---
PT TAKEN TO BED 11
--- NOTE | 2019-11-12 02:08 | NUR ---
LAB AT BEDSIDE.
[2019-11-12] MEDS ORDERED: FUROSEMIDE 100 MG/10 ML VIAL IVP ONE (02:20)
[2019-11-12 02:23] LABS: BASOPHILS # (AUTO) 0.1 K/uL (0.00-0.22); EOSINOPHILS # (AUTO) 0.1 K/uL (0-0.4)
[2019-11-12 02:30] LABS: BASOPHILS % (AUTO) 1.1 % (0.0-2.0); EOSINOPHILS % (AUTO) 2.3 % (0.0-4.0); HEMOGLOBIN 10.5 g/dL (12.0-16.0); LYMPHOCYTES # (AUTO) 2.1 K/uL (2.5-16.5); LYMPHOCYTES % (AUTO) 34.4 % (20.5-51.1); MEAN CORPUSCULAR HEMOGLOBIN 21 pg (27-31); MEAN CORPUSCULAR HGB CONC 31 g/dL (33-37); MEAN CORPUSCULAR VOLUME 68.2 fL (80-94); MONOCYTES # (AUTO) 0.4 K/uL (0.8-1.0); MONOCYTES % (AUTO) 6.1 % (1.7-9.3); NEUTROPHILS # (AUTO) 3.5 K/uL (1.8-7.7); NEUTROPHILS % (AUTO) 56.1 % (42.2-75.2); PLATELET COUNT (AUTO) 214 K/uL (140-450); RED BLOOD CELL COUNT(AUTO) 4.98 MIL/uL (4.20-5.40); WHITE BLOOD COUNT (AUTO) 6.2 K/uL (4.8-10.8)
[2019-11-12 02:34] LABS: RED CELL DISTRIBUTION WIDTH 20.2 % (11.6-13.7)
[2019-11-12 02:37] LABS: ALBUMIN 3.1 g/dL (3.4-5.0); ANION GAP 10.9 (8-16); CARBON DIOXIDE 32.5 mmol/L (21-32); CREATININE 1.2 mg/dL (0.6-1.3); POTASSIUM 3.4 mmol/L (3.5-5.1); TOTAL BILIRUBIN 0.7 mg/dL (0.0-1.0)
[2019-11-12] MEDS ORDERED: MORPHINE SULFATE 4 MG/ML SYR IVP ONE (02:50)
--- NOTE | 2019-11-12 02:58 | NUR ---
CHEST PAIN WITH SOB X1 DAY. 10/ PAIN AND DESCRIBES IT TIGHTNESS. +LABORED, = TACHYPNEA, AND SHALLOW BREATHING NOTED. EQUAL CHEST RISE AND FALL. +SOB, SPO2 IS 100% ON 2L NC. LUNG SOUNDS ARE CRACKLES THORUGHOUT AND DIMINISHED AT THE BASES. HEART SOUNDS S1S2 PRESENT. +2 PITTING EDEMA ON RT FOOT. A&O X4. W/C ASSIST. MEDHX- HTN, CHF, COPD, DM ALLX- KETAMINE, TRAMADOL, MOTRIN, PREDNISONE
--- NOTE | 2019-11-12 02:58 | NUR ---
CRITICAL LAB VALUE REPORTING: TROP 0.285, MIRA PEDROZA MADE AWARE.
[2019-11-12] MEDS ORDERED: ONDANSETRON 4 MG/2 ML VIAL IVP ONE (03:05)
[2019-11-12] MEDS ORDERED: ONDANSETRON 4 MG/2 ML VIAL ONE (03:06)
--- NOTE | 2019-11-12 03:53 | NUR ---
Dr. Johnson examining patient.
--- NOTE | 2019-11-12 04:26 | NUR ---
MIRA MADE AWARE ABOUT PT BP. STILL OKAY FOR D/C.
[2019-11-12 04:32] VITALS: BP 171/116
--- NOTE | 2019-11-12 04:32 | NUR ---
Patient discharged with v/s stable. Written and verbal after care instructions given and explained. Patient alert, oriented and verbalized understanding of instructions. Wheel Chair Assisted with steady gait. All questions addressed prior to discharge. ID band removed. Patient advised to follow up with PMD. Rx of NORCO given. Patient educated on indication of medication including possible reaction and side effects. Opportunity to ask questions provided and answered.
== END 2019-11-12 04:32 | disposition home or self-care (01) ==
LOC: MED 01:55
DX: R07.89 Other chest pain (principal); R06.02 Shortness of breath; I11.0 Hypertensive heart disease with heart failure; I50.9 Heart failure, unspecified; J44.9 Chronic obstructive pulmonary disease, unspecified; E11.9 Type 2 diabetes mellitus without complications; Z79.4 Long term (current) use of insulin; Z79.899 Other long term (current) drug therapy; Z98.890 Other specified postprocedural states; Z88.5 Allergy status to narcotic agent; Z88.8 Allergy status to other drugs, medicaments and biological substances
CPT/HCPCS: 36415; 71045; 80053; 83880; 84484; 85025; 93005; 96374; 96375; 99285; J2270; J2405; Q0092

== ENCOUNTER 2019-11-15 12:35 | Emergency (ER) | payer MEDICAID ==
[~2019-11-15] VITALS: Ht 170.2 cm; Wt 104.3 kg
[2019-11-15 12:42] VITALS: BP 157/110
--- NOTE | 2019-11-15 12:48 | NUR ---
Pt w/c assisted to bed 7.
--- NOTE | 2019-11-15 12:59 | NUR ---
ticketer at bedside for blood draw
--- NOTE | 2019-11-15 13:24 | NUR ---
54/F C/O LEFT UPPER CHEST PAIN RADIATING TO LEFT ARM AND LEFT NECK AREA, PRESSURE/SHARP SENSATION X 1 DAY. 10/10 PAIN, EXERTIONAL, NOTHING ALLEVIATES X 1 DAY. PER PT EPISODES OF SHORTNESS OF BREATH. DENIES NVD. PT PRESENTS EUPNIC, CALM, CLEAR SPEECH FULL SENTENCES. HX CHF,COPD,DM,HTN,[place], [place] (1996)
--- NOTE | 2019-11-15 13:27 | NUR ---
DR BOONE AT BEDSIDE
--- NOTE | 2019-11-15 13:38 | NUR ---
guitar technician at bedside.
[2019-11-15] MEDS ORDERED: ONDANSETRON 4 MG ODT PO ONE (13:40)
[2019-11-15] MEDS ORDERED: MORPHINE SULFATE 4 MG/ML SYR IM ONE (13:40)
[2019-11-15 14:13] LABS: BASOPHILS # (AUTO) 0.1 K/uL (0.00-0.22); BASOPHILS % (AUTO) 2.3 % (0.0-2.0); EOSINOPHILS # (AUTO) 0.1 K/uL (0-0.4); EOSINOPHILS % (AUTO) 2.1 % (0.0-4.0); HEMATOCRIT 33.3 % (36-48); LYMPHOCYTES # (AUTO) 1.7 K/uL (2.5-16.5); LYMPHOCYTES % (AUTO) 39.9 % (20.5-51.1); MEAN CORPUSCULAR HEMOGLOBIN 21 pg (27-31); MEAN CORPUSCULAR HGB CONC 30 g/dL (33-37); MEAN CORPUSCULAR VOLUME 68.6 fL (80-94); MONOCYTES # (AUTO) 0.3 K/uL (0.8-1.0); MONOCYTES % (AUTO) 6.1 % (1.7-9.3); NEUTROPHILS # (AUTO) 2.1 K/uL (1.8-7.7); NEUTROPHILS % (AUTO) 49.6 % (42.2-75.2); PLATELET COUNT (AUTO) 201 K/uL (140-450); RED BLOOD CELL COUNT(AUTO) 4.86 MIL/uL (4.20-5.40); RED CELL DISTRIBUTION WIDTH 20.4 % (11.6-13.7); WHITE BLOOD COUNT (AUTO) 4.3 K/uL (4.8-10.8)
[2019-11-15 14:30] LABS: ALBUMIN 2.9 g/dL (3.4-5.0); ANION GAP 12.5 (8-16); CARBON DIOXIDE 29.9 mmol/L (21-32); CREATININE 1.4 mg/dL (0.6-1.3); POTASSIUM 3.4 mmol/L (3.5-5.1); TOTAL BILIRUBIN 0.5 mg/dL (0.0-1.0)
--- NOTE | 2019-11-15 15:04 | NUR ---
Patient discharged with v/s stable. Written and verbal after care instructions given and explained. Patient verbalized understanding. Wheel Chair Assisted LOBBY TO WAIT FOR FAMILY MEMBER TO HISTOLOGY TECH PT. All questions addressed prior to discharge. Advised to follow up with PMD.
[2019-11-15 15:07] VITALS: BP 150/105
== END 2019-11-15 15:04 | disposition home or self-care (01) ==
LOC: MED 12:35
DX: R07.9 Chest pain, unspecified (principal); I11.0 Hypertensive heart disease with heart failure; E11.9 Type 2 diabetes mellitus without complications; J44.9 Chronic obstructive pulmonary disease, unspecified; Z88.6 Allergy status to analgesic agent; Z88.8 Allergy status to other drugs, medicaments and biological substances; Z88.2 Allergy status to sulfonamides; Z79.899 Other long term (current) drug therapy
CPT/HCPCS: 36415; 71045; 80053; 83880; 84484; 85025; 93005; 96372; 99285; J2270; Q0092; Q0162

== ENCOUNTER 2019-11-30 10:10 | Emergency (ER) | payer MEDICAID ==
[~2019-11-30] VITALS: Ht 172.7 cm; Wt 117.0 kg
[~2019-11-30 10:10] MED LIST changes: -ATRMDI IH
[2019-11-30 10:15] VITALS: BP_SYST 177; BP_SYST 187; BP_DIAS 105
--- NOTE | 2019-11-30 10:25 | NUR ---
ERMD AT BEDSIDE
--- NOTE | 2019-11-30 10:28 | NUR ---
54 YEAR OLD COMPLAINS OF CHEST PAIN AND SOB X LAST NIGHT. PT STATES SHE TOOK NITRO PATCH LAST NIGHT BUT DID NOT HELP MUCH. PT STATES CHEST PAIN IS SHARP 10/10. PT HAS BILATERAL EDEMA ON BOTH LEGS. PT AOX4, BREATHING TACHYPNIC AT 28 RR, SPO2 100%, LUNGS CLEAR BL. SKIN WARM AND DRY. BED IN LOWEST POSITION, LOCKED, BED RAIL UPX1. PT PLACED ON MONITOR. PMH - ASTHMA, COPD, HTN, DM2, CHF
--- NOTE | 2019-11-30 10:31 | NUR ---
PT BP 177/105, HR 101 MITALID MADE AWARE
[2019-11-30] MEDS ORDERED: NITROGLYCERIN 0.4 MG TAB SL ONE (10:35)
[2019-11-30] MEDS ORDERED: FUROSEMIDE 40 MG/4 ML VIAL IVP ONE ×2 (10:35→13:00)
--- NOTE | 2019-11-30 10:41 | NUR ---
1ST NITRO GIVEN, BP 177/105, HR 104
--- NOTE | 2019-11-30 10:46 | NUR ---
PT STATES STILL REALLY BAD HEADACHE AND CHEST PAIN. BP 162/104, HR 91. PT GIVEN 2ND DOSE OF NITRO
--- NOTE | 2019-11-30 10:46 | NUR ---
Tea montero in ED - 11/30/19 at 1046 by MEDBANDAR 1ST TINY DUMONT, BP 177/105, HR 104
--- NOTE | 2019-11-30 10:50 | NUR ---
PT STATES STILL HAS CHEST PAIN AND THAT THE MED IS ONLY MAKING HEADACHE WORSE, STATES SHE DOES NOT WANT THE THIRD DOSE. BP 175/108, HR 96. ERMD MADE AWARE
[2019-11-30] MEDS ORDERED: MORPHINE SULFATE 4 MG/ML SYR IVP ONE (10:55)
--- NOTE | 2019-11-30 10:55 | NUR ---
XRAY AT BEDSIDE
--- NOTE | 2019-11-30 11:00 | NUR ---
PT ON BEDPAN
[2019-11-30 11:13] LABS: BASOPHILS # (AUTO) 0.1 K/uL (0.00-0.22); BASOPHILS % (AUTO) 2.2 % (0.0-2.0); EOSINOPHILS # (AUTO) 0.1 K/uL (0-0.4); EOSINOPHILS % (AUTO) 2.3 % (0.0-4.0); HEMATOCRIT 33.1 % (36-48); LYMPHOCYTES # (AUTO) 2.1 K/uL (2.5-16.5); LYMPHOCYTES % (AUTO) 44.6 % (20.5-51.1); MEAN CORPUSCULAR HEMOGLOBIN 20 pg (27-31); MEAN CORPUSCULAR HGB CONC 30 g/dL (33-37); MEAN CORPUSCULAR VOLUME 66.4 fL (80-94); MONOCYTES # (AUTO) 0.3 K/uL (0.8-1.0); MONOCYTES % (AUTO) 7.1 % (1.7-9.3); NEUTROPHILS % (AUTO) 43.8 % (42.2-75.2); PLATELET COUNT (AUTO) 279 K/uL (140-450); RED BLOOD CELL COUNT(AUTO) 4.98 MIL/uL (4.20-5.40); RED CELL DISTRIBUTION WIDTH 20.5 % (11.6-13.7); WHITE BLOOD COUNT (AUTO) 4.6 K/uL (4.8-10.8)
[2019-11-30 11:16] LABS: ANION GAP 14.1 (8-16); CARBON DIOXIDE 28.4 mmol/L (21-32); CREATININE 1.3 mg/dL (0.6-1.3); POTASSIUM 3.5 mmol/L (3.5-5.1); TOTAL BILIRUBIN 0.8 mg/dL (0.0-1.0)
[2019-11-30 11:19] LABS: PROTHROMBIN TIME 12.7 secs (10.8-13.4)
[2019-11-30] MEDS ORDERED: INSULIN REGULAR, HUMAN 100 UNIT/ML VIAL SUBQ ONE ×2 (11:55→12:05)
--- NOTE | 2019-11-30 12:55 | NUR ---
PT STATES SHE IS DOING FINE ON PAIN AND MUCH MORE TOLERABLE NOW. PT ALERT AND AWAKE, BREATHING EVEN AND UNLABORED. NO DISTRESS NOTED. 300ML URINE OUTPUT, ERMD MADE AWARE
--- NOTE | 2019-11-30 14:00 | NUR ---
PT RESTING WITH EYES CLOSED, BREATHING EVEN AND UNLABORED. NO DISTRESS NOTED.
[2019-11-30] MEDS ORDERED: HYDROcodone/APAP 5/325 MG 1 TAB TAB PO ONE (14:20)
--- NOTE | 2019-11-30 15:30 | NUR ---
Patient discharged with v/s stable. Written and verbal after care instructions about COPD and heart failure given and explained. Patient verbalized understanding. Ambulatory with steady gait. All questions addressed prior to discharge. Advised to follow up with PMD.
[2019-11-30 15:43] VITALS: BP 154/111
[2019-12-04] MEDS ORDERED: CARV6.25 PO (06:38)
== END 2019-11-30 15:30 | disposition home or self-care (01) ==
LOC: MED 10:10
DX: I11.0 Hypertensive heart disease with heart failure (principal); I50.9 Heart failure, unspecified; J44.9 Chronic obstructive pulmonary disease, unspecified; E11.9 Type 2 diabetes mellitus without complications; Z79.4 Long term (current) use of insulin; Z79.899 Other long term (current) drug therapy; Z88.5 Allergy status to narcotic agent; Z88.8 Allergy status to other drugs, medicaments and biological substances
CPT/HCPCS: 36415; 71045; 80053; 83880; 84484; 85025; 85610; 85730; 93005; 96372; 96374; 96375; 96376; 99285; J1815; J1940; J2270; Q0092

== ENCOUNTER 2020-01-13 02:10 | Emergency (ER) | payer MEDICAID ==
[~2020-01-13] VITALS: Ht 172.7 cm; Wt 122.5 kg
[~2020-01-13 02:10] MED LIST changes: -AMOX250C31 PO; -BACL10TA4 PO; -CALC200T38 PO; -CARV3.12 PO; +CARV6.25 PO; -FAMO20TA13 PO; -GABA300C PO
[2020-01-13 02:19] VITALS: BP 177/105
[2020-01-13] MEDS ORDERED: FUROSEMIDE 100 MG/10 ML VIAL IVP ONE (02:35)
[2020-01-13] MEDS ORDERED: MORPHINE SULFATE 4 MG/ML SYR IVP ONE ×2 (02:35→05:10)
[2020-01-13] MEDS ORDERED: ONDANSETRON 4 MG/2 ML VIAL ONE (02:42)
[2020-01-13] MEDS ORDERED: ONDANSETRON 4 MG/2 ML VIAL IVP ONE (02:45)
[2020-01-13 03:03] LABS: HEMATOCRIT 31.1 % (36-48); HEMOGLOBIN 9.5 g/dL (12.0-16.0); MEAN CORPUSCULAR HEMOGLOBIN 20 pg (27-31); MEAN CORPUSCULAR HGB CONC 31 g/dL (33-37); MEAN CORPUSCULAR VOLUME 64.3 fL (80-94); PLATELET COUNT (AUTO) 267 K/uL (140-450); RED BLOOD CELL COUNT(AUTO) 4.84 MIL/uL (4.20-5.40); RED CELL DISTRIBUTION WIDTH 21.1 % (11.6-13.7); WHITE BLOOD COUNT (AUTO) 5.3 K/uL (4.8-10.8)
[2020-01-13 03:04] LABS: ANION GAP 10.3 (8-16); CREATININE 1.3 mg/dL (0.6-1.3); POTASSIUM 4.3 mmol/L (3.5-5.1); TOTAL BILIRUBIN 0.7 mg/dL (0.0-1.0)
[2020-01-13] MEDS ORDERED: HUM SUBQ (03:45)
[2020-01-13 03:47] LABS: BASOPHILS % (MANUAL) 0 % (0-2); EOSINOPHILS % (MANUAL) 3 % (0-4); LYMPHOCYTES % (MANUAL) 32 % (20-46); MONOCYTES % (MANUAL) 8 % (5-12)
[2020-01-13] MEDS ORDERED: MORPHINE SULFATE 4 MG/ML SYR ONE (05:10)
[2020-01-13] MEDS ORDERED: ENALAPRILAT 2.5 MG/2 ML VIAL IVP ONE ×2 (06:45)
[2020-01-13 07:00] VITALS: BP 173/112
== END 2020-01-13 07:06 | disposition short-term general hospital (02) ==
LOC: MED 02:10
DX: I11.0 Hypertensive heart disease with heart failure (principal); I50.9 Heart failure, unspecified; J44.9 Chronic obstructive pulmonary disease, unspecified; E11.9 Type 2 diabetes mellitus without complications; Z98.890 Other specified postprocedural states; Z79.4 Long term (current) use of insulin; Z79.899 Other long term (current) drug therapy; Z88.5 Allergy status to narcotic agent; Z88.8 Allergy status to other drugs, medicaments and biological substances
CPT/HCPCS: 36415; 71045; 80053; 83880; 84484; 85025; 87426; 93005; 96374; 96375; 96376; 99285; J1940; J2270; J2405; J3490; Q0092

== ENCOUNTER 2020-02-09 21:52 | Emergency (ER) | payer MEDICAID, SELFPAY ==
[~2020-02-09] VITALS: Ht 172.7 cm; Wt 121.1 kg
[~2020-02-09 21:52] MED LIST changes: +CLON0.1T42 PO; +HUM SUBQ; +HYDR-4420 PO; -LOSA50TA1 PO
--- NOTE | 2020-02-09 22:11 | NUR ---
triaged and waiting in lobby.
[2020-02-09 22:14] VITALS: BP 144/102
--- NOTE | 2020-02-09 22:38 | NUR ---
PT TAKEN TO BED 7
--- NOTE | 2020-02-09 22:38 | NUR ---
Tea montero in [facility] - 02/09/20 at 2253 by [email or web address] ERMD AT BEDSIDE.
--- NOTE | 2020-02-09 22:50 | NUR ---
Note winston in EDM - 02/09/20 at 2253 by [email or web address] Patient discharged with v/s stable. Written and verbal after care instructions given and explained to parent/guardian. Parent/Guardian verbalized understanding of instructions. Carried with by parent. All questions addressed prior to discharge. ID band removed. Parent/Guardian advised to follow up with PMD. Rx of MINERAL OIL, GLYCERIN SUPPOSITORY given. Parent/Guardian educated on indication of medication including possible reaction and side effects. Opportunity to ask questions provided and answered.
--- NOTE | 2020-02-09 23:21 | NUR ---
Dr. Yan examining patient.
[2020-02-09] MEDS ORDERED: FUROSEMIDE 40 MG/4 ML VIAL IVP ONE (23:25)
[2020-02-09] MEDS ORDERED: MORPHINE SULFATE 4 MG/ML SYR IVP ONE (23:25)
--- NOTE | 2020-02-09 23:30 | NUR ---
49 YO F BIB SELF WITH C/C OF THROBBING/PRESSURE LIKE 10/10 ON AND OFF CHEST PAIN X1DAY. PT STATED PAIN RADIATES TO SHOULDERS AND ARMS. PT STATED SHE USED 2 NITRO PATCHES PRIOR TO ARRIVAL AND TOOK ASPIRIN WITH NO RELIEF. PT HAS NAUSEA, DENIED VOMITTING . PT ON MUSIC SUPERVISOR AND PULSE OX. SIDE RAILS X2, BED LOCKED IN LOWEST POSITION. PT STATED SHE HAS A RIDE HOME. HX: COPD AND CHF ALLERG: DEXAMETHASONE, IBUPROFEN, KETAMINE, TRAMADOL
--- NOTE | 2020-02-09 23:52 | NUR ---
X-Ray at bedside.
[2020-02-09] MEDS ORDERED: ONDANSETRON 4 MG/2 ML VIAL ONE (23:54)
[2020-02-10] MEDS ORDERED: ONDANSETRON 4 MG/2 ML VIAL IVP ONE (00:20)
--- NOTE | 2020-02-10 00:40 | NUR ---
PT IN STABLE CONDITION. EQUAL RISE AND FALL OF CHEST WALL, UNLABORED BREATHING. PT ON FINANCIAL OPERATIONS CLERK AND PULSE OX. SIDE RAILS X2, BED LOCKED IN LOWEST POSITION.
[2020-02-10 01:12] VITALS: BP 153/96
--- NOTE | 2020-02-10 01:12 | NUR ---
Patient discharged with v/s stable. Written and verbal after care instructions given and explained. Patient verbalized understanding. Ambulatory with steady gait. All questions addressed prior to discharge. Advised to follow up with PMD.
== END 2020-02-10 01:12 | disposition home or self-care (01) ==
LOC: MED 21:52
DX: I50.9 Heart failure, unspecified (principal); R06.00 Dyspnea, unspecified; I11.0 Hypertensive heart disease with heart failure; J45.909 Unspecified asthma, uncomplicated; J44.9 Chronic obstructive pulmonary disease, unspecified; E11.9 Type 2 diabetes mellitus without complications; Z79.4 Long term (current) use of insulin; Z79.899 Other long term (current) drug therapy; Z88.5 Allergy status to narcotic agent; Z88.8 Allergy status to other drugs, medicaments and biological substances
CPT/HCPCS: 71045; 93005; 96374; 96375; 99284; J1940; J2270; J2405

== ENCOUNTER 2020-02-15 22:48 | Emergency (ER) | payer MEDICAID, SELFPAY ==
[~2020-02-15] VITALS: Ht 172.7 cm; Wt 121.1 kg
[2020-02-15 23:10] VITALS: BP 144/109
--- NOTE | 2020-02-15 23:15 | NUR ---
pt connected to the monitoring manager
--- NOTE | 2020-02-15 23:15 | NUR ---
54 Y/O FEMALE C/O 01/03 CHEST PAIN X2 DAYS THAT IS INTERMITTENT AND RADIATES DOWN BILATERAL ARMS. S1, S2 NOTED. CRACKLES NOTED IN BILATERAL BASES OF LUNGS. SWELLING, 2+ PITTING EDEMA IN BILATERAL LOWER EXTREMITIES. PT DENIES, FEVER, N/V AND DIARRHEA. PT IS ON HER PHONE AND NOT IN ANY ACUTE DISTRESS AT THIS TIME. PT CONNECTED TO ETL INFORMATICA ARCHITECT. SAO2 @ 96%. BED IS LOCKED AND IN LOWEST POSITION. SIDE RAILS X1. PMH: HTN, CHF, COPD, CKD STAGE 3 ALLERGIES: NOTED IN CHART
--- NOTE | 2020-02-15 23:26 | NUR ---
XRAY AT BEDSIDE
--- NOTE | 2020-02-16 00:15 | NUR ---
ERMD AT BEDSIDE
[2020-02-16] MEDS ORDERED: MORPHINE SULFATE 2 MG/ML SYR IVP ONE (00:30)
[2020-02-16] MEDS ORDERED: ONDANSETRON 4 MG/2 ML VIAL IVP ONE (00:30)
--- NOTE | 2020-02-16 01:00 | NUR ---
PT IS SITTING IN UPRIGHT POSITION WITH HOB IN HIGH FOWLERS. PT IS NOT IN ANY ACUTE DISTRESS AT THIS TIME. SIDE RAILS X1. BED IS LOCKED AND IN LOWEST POSITION. SAO2 99%.
--- NOTE | 2020-02-16 01:25 | NUR ---
ERMD AWARE OF V/S AND ERMD STATES PT IS READY FOR DISCHARGE
[2020-02-16 01:30] VITALS: BP 144/109
--- NOTE | 2020-02-16 01:30 | NUR ---
Patient discharged with v/s stable. Written and verbal after care instructions given and explained. Patient verbalized understanding. Wheel Chair Assisted with by EMT. All questions addressed prior to discharge. Advised to follow up with PMD.
== END 2020-02-16 01:30 | disposition home or self-care (01) ==
LOC: MED 22:48
DX: R07.9 Chest pain, unspecified (principal); I10 Essential (primary) hypertension; I51.89 Other ill-defined heart diseases; J45.909 Unspecified asthma, uncomplicated; J44.9 Chronic obstructive pulmonary disease, unspecified; Z88.4 Allergy status to anesthetic agent; Z88.6 Allergy status to analgesic agent; Z88.8 Allergy status to other drugs, medicaments and biological substances; Z79.899 Other long term (current) drug therapy
CPT/HCPCS: 71045; 93005; 96374; 96375; 99284; J2270; J2405; 99285

== ENCOUNTER 2020-09-16 00:30 | Inpatient (IN) | payer MEDICAID, SELFPAY ==
[~2020-09-16] VITALS: Ht 172.7 cm; Wt 112.5 kg
[~2020-09-16 00:30] MED LIST changes: +APIX5TAB PO; -HUM SUBQ; -HYDR-4420 PO; +[UNRECOGNIZED DRUG - CODE] PO
[2020-09-16 00:35] VITALS: BP 165/102
--- NOTE | 2020-09-16 00:35 | NUR ---
TO BED VIA WHEELCHAIR
--- NOTE | 2020-09-16 00:52 | NUR ---
55 Y.O FEMALE C/O DIFF OF BREATHING FOR 2 DAYS, BODYACHES, NAUSEA , LIGHTHEADEDNESS. BILATERAL SWELLING OF LOWER EXTREMITY WITH +2 AND +1 PITTING ALONG WITH PAIN UPON PALPATION OF THE LEGS. PAIN A 10/10. AUSCULTATION TO LUNGS DIMINISHED BASES. AAOX4 PMH: CHF, COPD, STAGE 3 KIDNEY FAILURE, HTN, DM ALLERGIES: IBUPROFEN, KETAMINE, TRAMADOL, PREDNISONE
--- NOTE | 2020-09-16 00:58 | NUR ---
EKG PERFORMED AT BEDSIDE. EKG READS SINUS TACHYCARDIA @ 102
[2020-09-16 01:40] LABS: BASOPHILS # (AUTO) 0.1 K/uL (0.00-0.22); BASOPHILS % (AUTO) 2.4 % (0.0-2.0); EOSINOPHILS # (AUTO) 0.1 K/uL (0-0.4); EOSINOPHILS % (AUTO) 1.8 % (0.0-4.0); HEMATOCRIT 36.9 % (36-48); HEMOGLOBIN 11.8 g/dL (12.0-16.0); LYMPHOCYTES # (AUTO) 1.5 K/uL (2.5-16.5); LYMPHOCYTES % (AUTO) 34.6 % (20.5-51.1); MEAN CORPUSCULAR HEMOGLOBIN 26 pg (27-31); MEAN CORPUSCULAR HGB CONC 32 g/dL (33-37); MEAN CORPUSCULAR VOLUME 79.6 fL (80-94); MONOCYTES # (AUTO) 0.3 K/uL (0.8-1.0); NEUTROPHILS # (AUTO) 2.4 K/uL (1.8-7.7); NEUTROPHILS % (AUTO) 54.2 % (42.2-75.2); PLATELET COUNT (AUTO) 198 K/uL (140-450); RED BLOOD CELL COUNT(AUTO) 4.63 MIL/uL (4.20-5.40); RED CELL DISTRIBUTION WIDTH 16.9 % (11.6-13.7); WHITE BLOOD COUNT (AUTO) 4.4 K/uL (4.8-10.8)
[2020-09-16] MEDS ORDERED: ONDANSETRON 4 MG/2 ML VIAL IVP ONE (01:50)
[2020-09-16] MEDS ORDERED: MORPHINE SULFATE 4 MG/ML SYR IVP ONE (01:50)
--- NOTE | 2020-09-16 01:51 | NUR ---
Maricruz swab done and collected. Sent to lab, received by [facility]
[2020-09-16 02:15] LABS: PROTHROMBIN TIME 10.8 secs (10.8-13.4)
--- NOTE | 2020-09-16 02:45 | NUR ---
PER ESAU, NURSE SUPERVISOR MACHINE TO RUN COVID MELVIN IS DOWN AND SPECIMENT WILL BE SENT TO [facility] THEREFORE RESULTS WILL BE DELAY. MIRA MADE AWARE.
--- NOTE | 2020-09-16 03:37 | NUR ---
Dimmed lights, Patient appears to be resting in bed semi-fowlers. Respirations even and unlabored with 2L of O2 going. Safety measures in place. Will continue to monitor patient.
[2020-09-16 03:50] LABS: ALBUMIN 3.3 g/dL (3.4-5.0); ANION GAP 18.2 (8-16); CARBON DIOXIDE 25.4 mmol/L (21-32); CREATININE 1.1 mg/dL (0.6-1.3); POTASSIUM 3.6 mmol/L (3.5-5.1); TOTAL BILIRUBIN 0.6 mg/dL (0.0-1.0)
--- NOTE | 2020-09-16 04:42 | NUR ---
Patient c/o pain that feels like it's starting to slowly creep up but still tolerable. Gave another warm blanket and repositioned for comfort and relieving pain measures. Safety measures in place. Will continue to monitor patient.
--- NOTE | 2020-09-16 05:09 | NUR ---
Patient complaining of pain from the body. ERMD made aware.
--- NOTE | 2020-09-16 05:34 | NUR ---
Called BELINDA Ramirez for report-no answer at this time
--- NOTE | 2020-09-16 05:47 | NUR ---
Patient will be admitted to care of Valdemar Earl MD. Admited to Telemetry. Will go to room 111B. Belongings list completed. Report to BELINDA Ramirez.
--- NOTE | 2020-09-16 06:00 | NUR ---
RECD. PATIENT FROM ER VIA GURNEY, AWAKE, A/OX4. RESPIRATION EVEN AND UNLABORED. ON 02 AT 2 LITERS VIA N/C, SATURATING 97%. SALINE LOCK AT THE LEFT WRIST G22, PATENT AND INTACT. USES CANE AT HOME TO AMBULATE. SKIN IS INTACT. MRSA DONE AND SENT TO LAB. V/S STABLE. DENIES PAIN 0/10. WILL ENDORSE TO AM SHIFT NURSE FOR ADMISSION.
--- NOTE | 2020-09-16 07:35 | NUR ---
RECEIVED REPORT FROM POURER METAL NURSE. PATIENT LYING DOWN IN BED SLEEPING, AROUSABLE BY VOICE. NO DISTRESS NOTED. DENIES ANY PAIN. ON O2 1L/MIN VIA NC. DENIES DYSPNEA. AAOX4, CALM, COOPERATIVE, APPROPRIATE AFFECT. SKIN INTACT. IV SITE INTACT, PATENT, AND ON SALINE LOCK. REVIEWED PLAN OF CARE WITH PATIENT. PATIENT VERBALIZED UNDERSTANDING. SAFETY MEASURES IN PLACE, CALL LIGHT WITHIN REACH. WILL CONTINUE TO MONITOR.
[2020-09-16 08:00] VITALS: BP 146/95
--- NOTE | 2020-09-16 10:45 | NUR ---
PATIENT HAS BEEN SCREENED AND CATEGORIZED MODERATE NUTRITION RISK. PATIENT WILL BE SEEN WITHIN 3-5 DAYS OF ADMISSION. 09/19/20 09/21/[address]
--- NOTE | 2020-09-16 11:30 | NUR ---
PATIENT LYING DOWN IN BED TALKING ON HER PHONE. CONDITION UNCHANGED. WILL CONTINUE TO MONITOR.
[2020-09-16 12:00] VITALS: BP 150/79
[2020-09-16] MEDS ORDERED: ONDANSETRON 4 MG/2 ML VIAL IVP PRN ×2 (12:35→13:05)
[2020-09-16] MEDS ORDERED: HYDROcodone/APAP 10/325 MG 1 TAB TAB PO PRN (13:05)
[2020-09-16] MEDS ORDERED: HYDROcodone/APAP 5/325 MG 1 TAB TAB PO PRN (13:05)
[2020-09-16] MEDS ORDERED: NITROGLYCERIN 0.4 MG TAB SL PRN (13:05)
[2020-09-16] MEDS ORDERED: ACETAMINOPHEN 325 MG TAB PO PRN (13:05)
[2020-09-16] MEDS ORDERED: MORPHINE SULFATE 2 MG/ML SYR IVP PRN (13:05)
[2020-09-16] MEDS ORDERED: CLONIDINE HYDROCHLORIDE 0.1 MG TAB PO PRN (13:05)
[2020-09-16] MEDS ORDERED: LORazepam 2 MG/ML VIAL IVP PRN (13:05)
[2020-09-16] MEDS ORDERED: ALBUTEROL 0.083% 2.5 MG/3 ML NEBU INH PRN (13:30)
--- NOTE | 2020-09-16 14:26 | NUR ---
PATIENT OFF UNIT FOR XRAY OF SPINE. WILL CONTINUE TO MONITOR WHEN PATIENT RETURNS ON UNIT
[2020-09-16 14:47] LABS: CREATINE KINASE MB 1.3 ng/mL (0-3.6)
--- NOTE | 2020-09-16 14:48 | NUR ---
DC PLANNIN YRS OLD FEMALE PATIENT WAS ADMITTED FROM HOME WITH A DX OF CHF. PT HAS A HX OF CHF AND COPD. CXR SHOWED NO ACUTE CARDIOPULMONARY DISEASE AND ENLARGED CARDIAC SILHOUETTE. RAPID COVID TEST NEGATIVE. ON O2 2L/NC SATING 100%. ADMINISTERED LASIX IV, CONTINUED HOME MEDS RT PROTOCOL. TROP 0.328, 0.280 CONSULTED WITH PULMO AND LEAD SECURITY OFFICER. DC PLAN TO GO HOME WHEN STABLE. DARYA TO FOLLOW. Addendum: 09/16/20 at 1508 by Bhargavi Cannon RN DC PLANNING: [facility] [employer] [facility] [phone] SPOKE WITH AVRIL LACKEY NOTIFIED HER THE INPT STATUS. SHE REQUESTED THE CLINICAL TO BE FAXED AND PROVIDE THE AUTH [id number]. FAXED ALL PAPERWORK TO [phone] DARYA TO FOLLOW
[2020-09-16 16:00] VITALS: BP 144/103
[2020-09-16] MEDS ORDERED: hydrALAZINE 20 MG/ML VIAL IVP PRN (16:25)
[2020-09-16] MEDS ORDERED: ALBUTEROL SULFATE/IPRATROPIU 3 ML SOL IH PRN (16:25)
[2020-09-16] MEDS: FUROSEMIDE 40 MG TAB PO SCH (17:52)
--- NOTE | 2020-09-16 17:52 | NUR ---
SCHEDULED MEDICATIONS DUE GIVEN. WILL CONTINUE TO MONITOR.
[2020-09-16] MEDS ORDERED: INSULIN LISPRO SLIDING SCALE 100 UNITS/ML VIAL SUBQ PRN (19:25)
[2020-09-16] MEDS ORDERED: DEXTROSE 50% 50 ML SYR IVP PRN (19:25)
--- NOTE | 2020-09-16 19:26 | NUR ---
GAVE REPORT TO CREDIT RESOLUTION REPRESENTATIVE NURSE FOR CONTINUITY OF CARE. PATIENT IN STABLE CONDITION.
--- NOTE | 2020-09-16 19:27 | NUR ---
RECEIVED BEDSIDE REPORT FROM DAY RN. PATIENT LYING DOWN IN BED APPEARS TO BE ASLEEP. RESPIRATIONS ARE EQUAL AND UNLABORED ON ROOM AIR. NO DISTRESS NOTED. SKIN IS WARM, DRY AND INTACT. IV SITE ON LW22G SL AND LORY 20G SL PT NPO FOR PENDING CT ANGIO TONIGHT. SAFETY MEASURES IN PLACE, CALL LIGHT WITHIN REACH. WILL CONTINUE TO MONITOR.
[2020-09-16 20:00] VITALS: BP 149/101
--- NOTE | 2020-09-16 20:48 | NUR ---
BLOOD SUGAR 218 ADMIN LANTUS PER ORDERS. PO LING MEDICATION HELD PT PENDING CT ANGIO AT 2230. WILL ADMIN AFTER CT ANGIO. PT VERBALIZED UNDERSTANDING. CALL LIGHT IS WITHIN REACH
[2020-09-16] MEDS: ATORVASTATIN 20 MG TAB PO SCH ×2 (20:51→23:40)
[2020-09-16] MEDS: DOCUSATE SODIUM 100 MG GELCAP PO SCH ×2 (20:51→23:40)
[2020-09-16] MEDS: carvediloL 6.25 MG TAB PO SCH ×2 (20:52→23:41)
[2020-09-16] MEDS: APIXABAN 2.5 MG TAB PO SCH ×2 (20:53→23:47)
[2020-09-16] MEDS ORDERED: DOCUSATE SODIUM 250 MG GELCAP PO SCH (21:00)
[2020-09-16] MEDS ORDERED: INSULIN LANTUS 100 UNITS/ML 10 ML VIAL SUBQ SCH (21:00)
[2020-09-16] MEDS: BLOOD GLUCOSE MONITORING 1 DEV DEV FS SCH (21:22)
--- NOTE | 2020-09-16 22:04 | NUR ---
PT RESTING IN BED WAITING FOR PROCEDURE. DENIES ANY S/SX OF DISTRESS. CALL LIGHT IS WITHIN REACH.
--- NOTE | 2020-09-16 22:41 | NUR ---
F/U WITH SANAM BROWN. WILL BE COMING DOWN FOR PATIENT SOON FOR CT ANGIO.
--- NOTE | 2020-09-16 23:23 | NUR ---
PATIENT OFF THE FLOOR FOR CT ANGIO. PT IN STABLE CONDITION.
--- NOTE | 2020-09-16 23:41 | NUR ---
PATIENT IS BACK ON THE FLOOR 2100 LING MEDICATIONS GIVEN NOW AT 2341. MED EDUCATION GIVEN PT VERBALIZED UNDERSTANDING. ASSISTED PT TO BEDSIDE COMMODE. PT BACK IN BED WITH CUP OF ICE CHIPS PER REQUEST. EDUCATED PATIENT ON FLUID RESTRICTIONS. PT VERBALIZED UNDERSTANDING. ALL NEEDS MET. CALL LIGHT IS WITHIN REACH. WILL CONTINUE TO MONITOR.
[2020-09-17] VITALS: BP 152/94
--- NOTE | 2020-09-17 02:10 | NUR ---
ROUNDS MADE. PT APPEARS TO BE ASLEEP. CHEST RISE AND FALL NOTED. CALL LIGHT IS WITHIN REACH.
[2020-09-17 04:00] VITALS: BP 146/103
[2020-09-17 04:59] LABS: BASOPHILS # (AUTO) 0.1 K/uL (0.00-0.22); BASOPHILS % (AUTO) 2.3 % (0.0-2.0); EOSINOPHILS # (AUTO) 0.1 K/uL (0-0.4); HEMATOCRIT 36.1 % (36-48); HEMOGLOBIN 11.6 g/dL (12.0-16.0); LYMPHOCYTES # (AUTO) 1.3 K/uL (2.5-16.5); LYMPHOCYTES % (AUTO) 30.8 % (20.5-51.1); MEAN CORPUSCULAR HEMOGLOBIN 26 pg (27-31); MEAN CORPUSCULAR HGB CONC 32 g/dL (33-37); MEAN CORPUSCULAR VOLUME 80.4 fL (80-94); MONOCYTES # (AUTO) 0.3 K/uL (0.8-1.0); MONOCYTES % (AUTO) 7.9 % (1.7-9.3); NEUTROPHILS # (AUTO) 2.4 K/uL (1.8-7.7); PLATELET COUNT (AUTO) 164 K/uL (140-450); RED BLOOD CELL COUNT(AUTO) 4.49 MIL/uL (4.20-5.40); RED CELL DISTRIBUTION WIDTH 16.6 % (11.6-13.7); WHITE BLOOD COUNT (AUTO) 4.2 K/uL (4.8-10.8)
[2020-09-17 05:31] LABS: CHOL/HDL RATIO 2.8 (1-4.5); THYROID STIMULATING HORMONE 1.61 uIU/mL (0.34-3.74)
--- NOTE | 2020-09-17 06:15 | NUR ---
VITAL SIGNS ARE WITHIN NORMAL LIMITS. ALL SAFETY MEASURE ARE IN PLACE. WILL CONTINUE TO MONITOR
[2020-09-17] MEDS: BLOOD GLUCOSE MONITORING 1 DEV DEV FS SCH ×2 (06:44→12:11)
--- NOTE | 2020-09-17 07:26 | NUR ---
GAVE BEDSIDE REPORT TO DAY RN. PT ENDORSED IN STABLE CONDITION.
[2020-09-17 08:00] VITALS: BP 136/87
[2020-09-17] MEDS: DOCUSATE SODIUM 100 MG GELCAP PO SCH (08:50)
[2020-09-17] MEDS: carvediloL 6.25 MG TAB PO SCH (08:50)
[2020-09-17] MEDS: FUROSEMIDE 40 MG TAB PO SCH (08:50)
[2020-09-17] MEDS: APIXABAN 2.5 MG TAB PO SCH (08:53)
--- NOTE | 2020-09-17 08:54 | NUR ---
SCHEDULED MEDICATIONS DUE GIVEN. WILL CONTINUE TO MONITOR.
--- NOTE | 2020-09-17 10:30 | NUR ---
ASSISTED PATIENT TO BEDSIDE COMMODE AND BACK TO BED. WILL CONTINUE TO MONITOR.
[2020-09-17 12:00] VITALS: BP 131/90
--- NOTE | 2020-09-17 12:34 | NUR ---
REFUSED LUNCH. TALKING WITH EXCHANGE SPECIALIST AT THIS TIME. WILL CONTINUE TO MONITOR.
[2020-09-17 14:04] LABS: CREATINE KINASE MB 1.5 ng/mL (0-3.6)
--- NOTE | 2020-09-17 15:10 | NUR ---
DISCHARGE INSTRUCTIONS PROVIDED TO PATIENT IN PREFERRED LANGUAGE OF [place]. INSTRUCTIONS ON FOLLOW-UP WITH PCP IN 1 WEEK, ADA DIET REGIMEN, TO MAINTAIN FLUID RESTRICTION AT HOME, AND DISEASE PROCESS/MANAGEMENT OF CHF. ANSWERED ALL OF PATIENT'S QUESTIONS REGARDING DISCHARGE. IV SITE REMOVED WITH MINIMAL BLOOD AND LUMEN COMPLETELY INTACT. ID BANDS REMOVED. PATIENT'S SON AT LOBBY. ESCORTED PATIENT DOWN TO LOBBY VIA WHEELCHAIR. PATIENT DISCHARGED AT THIS TIME IN STABLE CONDITION IN PRIVATE VEHICLE.
[2020-09-17 22:08] LABS: ANION GAP 21.5 (8-16); CARBON DIOXIDE 25.6 mmol/L (21-32); CREATININE 1.3 mg/dL (0.6-1.3); POTASSIUM 4.1 mmol/L (3.5-5.1)
[2020-09-17 22:15] LABS: MAGNESIUM 1.6 mg/dL (1.8-2.4)
== END 2020-09-17 15:10 | disposition home or self-care (01) | DRG 133 ==
LOC: MED 00:30 → MTU 03:57
PROVIDERS: ADMIT Preventive Medicine Preventive Medicine/Occupational Environmental Medicine; ATTEND Preventive Medicine Preventive Medicine/Occupational Environmental Medicine
DX: J96.01 Acute respiratory failure with hypoxia (principal); I50.33 Acute on chronic diastolic (congestive) heart failure; E11.22 Type 2 diabetes mellitus with diabetic chronic kidney disease; E11.65 Type 2 diabetes mellitus with hyperglycemia; J44.9 Chronic obstructive pulmonary disease, unspecified; I13.0 Hypertensive heart and chronic kidney disease with heart failure and stage 1 through stage 4 chronic kidney disease, or unspecified chronic kidney disease; E83.51 Hypocalcemia; N18.30 Chronic kidney disease, stage 3 unspecified; E78.5 Hyperlipidemia, unspecified; K59.00 Constipation, unspecified; Z20.822 Contact with and (suspected) exposure to COVID-19; D72.819 Decreased white blood cell count, unspecified; E88.09 Other disorders of plasma-protein metabolism, not elsewhere classified; G89.4 Chronic pain syndrome; I25.10 Atherosclerotic heart disease of native coronary artery without angina pectoris; M54.9 Dorsalgia, unspecified; R79.89 Other specified abnormal findings of blood chemistry; Z79.01 Long term (current) use of anticoagulants; Z79.899 Other long term (current) drug therapy; Z88.8 Allergy status to other drugs, medicaments and biological substances; Z79.4 Long term (current) use of insulin
CPT/HCPCS: 36415; 71045; 71275; 72100; 74018; 80048; 80053; 82550; 82553; 82948; 83735; 83880; 84100; 84443; 84484; 85025; 85610; 85730; 87081; 93005; 96374; 96375; 99291; J1815; J2270; J2405; Q9967

== ENCOUNTER 2020-10-01 22:58 | Inpatient (IN) | payer MEDICAID, SELFPAY ==
[~2020-10-01] VITALS: Ht 172.7 cm; Wt 112.5 kg
[2020-10-01 23:05] VITALS: BP 150/90
--- NOTE | 2020-10-01 23:05 | NUR ---
TO BED VIA WHEELCHAIR
--- NOTE | 2020-10-01 23:46 | NUR ---
Dr. Vu with pt for MSE
[2020-10-01] MEDS ORDERED: MORPHINE SULFATE 4 MG/ML SYR IVP ONE (23:50)
[2020-10-01] MEDS ORDERED: ONDANSETRON 4 MG/2 ML VIAL ONE (23:50)
[2020-10-01] MEDS ORDERED: FUROSEMIDE 40 MG/4 ML VIAL IVP ONE ×2 (23:50→23:51)
[2020-10-01] MEDS ORDERED: NITROGLYCERIN 0.4 MG TAB SL ONE (23:50)
[2020-10-01] MEDS ORDERED: ENOXAPARIN 100 MG/ML SYR SUBQ ONE (23:50)
[2020-10-01] MEDS ORDERED: NITROGLYCERIN 2% 1 GM PKT TP ONE (23:50)
[2020-10-01] MEDS ORDERED: ASPIRIN 325 MG TAB PO ONE (23:50)
[2020-10-01] MEDS ORDERED: ASPIRIN 325 MG TAB ONE (23:51)
[2020-10-01] MEDS ORDERED: MORPHINE SULFATE 4 MG/ML SYR ONE (23:51)
--- NOTE | 2020-10-02 | NUR ---
covid swab collected and sent to lab.
[2020-10-02 00:10] LABS: BASOPHILS % (AUTO) 0.7 % (0.0-2.0); EOSINOPHILS # (AUTO) 0.1 K/uL (0-0.4); EOSINOPHILS % (AUTO) 1.3 % (0.0-4.0); HEMATOCRIT 36.9 % (36-48); HEMOGLOBIN 11.9 g/dL (12.0-16.0); LYMPHOCYTES # (AUTO) 1.1 K/uL (2.5-16.5); LYMPHOCYTES % (AUTO) 22.9 % (20.5-51.1); MEAN CORPUSCULAR HEMOGLOBIN 26 pg (27-31); MEAN CORPUSCULAR HGB CONC 32 g/dL (33-37); MEAN CORPUSCULAR VOLUME 79.3 fL (80-94); MONOCYTES # (AUTO) 0.2 K/uL (0.8-1.0); MONOCYTES % (AUTO) 4.9 % (1.7-9.3); NEUTROPHILS # (AUTO) 3.2 K/uL (1.8-7.7); NEUTROPHILS % (AUTO) 70.2 % (42.2-75.2); PLATELET COUNT (AUTO) 210 K/uL (140-450); RED BLOOD CELL COUNT(AUTO) 4.65 MIL/uL (4.20-5.40); RED CELL DISTRIBUTION WIDTH 17.6 % (11.6-13.7); WHITE BLOOD COUNT (AUTO) 4.6 K/uL (4.8-10.8)
[2020-10-02 00:22] LABS: ALBUMIN 3.1 g/dL (3.4-5.0); ANION GAP 12.2 (8-16); CARBON DIOXIDE 32.3 mmol/L (21-32); CREATININE 1.4 mg/dL (0.6-1.3); POTASSIUM 3.5 mmol/L (3.5-5.1); TOTAL BILIRUBIN 0.8 mg/dL (0.0-1.0)
[2020-10-02] MEDS ORDERED: ONDANSETRON 4 MG/2 ML VIAL IVP ONE (00:40)
[2020-10-02] MEDS ORDERED: NITROGLYCERIN 0.4 MG TAB SL ONE (00:45)
--- NOTE | 2020-10-02 00:57 | NUR ---
provided pt with bedside commode.
--- NOTE | 2020-10-02 01:28 | NUR ---
Assisted patient to beside commode. Urinated 300ml of yellow urine, no foul ordor noted. Patient remains on cardiac moniot. VSS.
[2020-10-02] MEDS ORDERED: MORPHINE SULFATE 4 MG/ML SYR IVP ONE (01:55)
--- NOTE | 2020-10-02 02:02 | NUR ---
reports of pain increasing to 9/[address] Vu made aware
[2020-10-02] MEDS ORDERED: FURO-570 PO (02:10)
--- NOTE | 2020-10-02 04:38 | NUR ---
NAD at this time. pt currently asleep. on 2lpm n/c.
[2020-10-02] MEDS ORDERED: ONDANSETRON 4 MG/2 ML VIAL IVP PRN (04:55)
[2020-10-02] MEDS ORDERED: ACETAMINOPHEN 325 MG TAB PO PRN (04:55)
--- NOTE | 2020-10-02 08:22 | NUR ---
Tea montero in EDM - 10/02/20 at 0879 by MEDBANDAR PT STATES SHE IS HAVNG BILATERAL LEG PAIN AND BACK PAIN 01/03. DR HURT NOTIFIED BY PAGER
--- NOTE | 2020-10-02 08:27 | NUR ---
PT STATES SHE IS HAVNG BILATERAL LEG PAIN AND BACK PAIN 10/10. DR ESCAMILLA NOTIFIED
[2020-10-02] MEDS ORDERED: NITROGLYCERIN 0.4 MG TAB SL SCH (08:30)
[2020-10-02] MEDS ORDERED: CLONIDINE HYDROCHLORIDE 0.1 MG TAB PO PRN (08:30)
[2020-10-02] MEDS ORDERED: HYDROcodone/APAP 5/325 MG 1 TAB TAB PO PRN (08:30)
[2020-10-02] MEDS ORDERED: ALBUTEROL HFA MDI 90 MCG/ACTUATION 8 GM INH PRN (08:30)
[2020-10-02] MEDS: MORPHINE SULFATE 2 MG/ML SYR IVP PRN ×3 (08:52→20:10)
[2020-10-02] MEDS ORDERED: FUROSEMIDE 40 MG/4 ML VIAL IVP SCH (09:00)
--- NOTE | 2020-10-02 09:01 | NUR ---
PATIENT HAS BEEN SCREENED AND CATEGORIZED MODERATE NUTRITION RISK. PATIENT WILL BE SEEN WITHIN 3-5 DAYS OF ADMISSION. 10/04/20 10/06/[address]
[2020-10-02] MEDS: DOCUSATE SODIUM 100 MG GELCAP PO SCH ×2 (09:20→20:14)
[2020-10-02] MEDS: carvediloL 6.25 MG TAB PO SCH ×2 (09:21→20:14)
[2020-10-02] MEDS: APIXABAN 2.5 MG TAB PO SCH ×2 (09:21→20:14)
--- NOTE | 2020-10-02 11:09 | NUR ---
Patient will be admitted to care of Dr Rodriguez. Admited to Tele. Will go to room 125A. Belongings list completed. Report to Loco TREVINO.
--- NOTE | 2020-10-02 11:15 | NUR ---
RECEIVED BEDSIDE REPORT FROM ER NURSE. ADMITTED 55 Y/O FEMALE FROM HOME WITH A CC OF CHEST PAIN AND SOB X1 DAY. ADMITTING DX OF CHF. AOX4, ABLE TO MAKE NEEDS KNOWN. NO C/O PAIN. ON 2L O2 NC, NO RESPIRATORY DISTRESS, WITH C/O MILD SOB. B/B CONTINENT. AMBULATORY. WITH IV LAC 20G ON SL. SKIN S INTACT. CALL LIGHT WITHIN REACH. WILL CONTINUE TO MONITOR
[2020-10-02 11:38] VITALS: BP 161/83
--- NOTE | 2020-10-02 13:30 | NUR ---
PT IN BED EATING LUNCH. NO C/O PAIN, NO APPARENT DISTRESS
[2020-10-02] MEDS: FUROSEMIDE 40 MG/4 ML VIAL IVP SCH (14:05)
[2020-10-02] MEDS ORDERED: POTASSIUM CHLORIDE 10 MEQ TABER PO SCH (14:30)
[2020-10-02 16:00] VITALS: BP 153/85
--- NOTE | 2020-10-02 19:20 | NUR ---
RECEIVED PATIENT FROM AM SHIFT NURSE FOR CONTINUITY OF CARE. ALERT AND ABLE TO MAKE NEEDS KNOWN. RESPIRATIONS EVEN, UNLABORED. CONTINUES ON O2 2L VIA NC, O2SAT 100%. NO S/S RESPIRATORY DISTRESS. S1/S2 AUSCULTATED. TELE MONITORING. SKIN WARM, DRY. SALINE LOCK TO RIGHT WRIST 20G PATENT/INTACT. NO C/O PAIN. ABDOMEN SOFT, NONTENDER, NONDISTENDED. BOWEL SOUNDS ACTIVE x4 QUADRANTS. PATIENT IS CONTINENT OF B/B. PLAN OF CARE DISCUSSED. SAFETY PRECAUTIONS IN PLACE. CALL LIGHT IN REACH.
[2020-10-02 20:00] VITALS: BP 152/84
[2020-10-02] MEDS: INSULIN LANTUS 100 UNITS/ML 10 ML VIAL SUBQ SCH (20:15)
[2020-10-02] MEDS: ATORVASTATIN 20 MG TAB PO SCH (20:15)
--- NOTE | 2020-10-02 21:34 | NUR ---
DUE MEDS GIVEN. PATIENT RESTING COMFORTABLY IN BED. NO S/S ACUTE DISTRESS. NO C/O PAIN. NO S/S RESPIRATORY DISTRESS. CALL LIGHT IN REACH.
--- NOTE | 2020-10-02 23:40 | NUR ---
PATIENT RESTING COMFORTABLY IN BED. NO C/O PAIN. NO S/S RESPIRATORY DISTRESS. CALL LIGHT WITHIN REACH AT ALL TIMES.
[2020-10-03] VITALS: BP 127/87
[2020-10-03] MEDS: MORPHINE SULFATE 2 MG/ML SYR IVP PRN ×3 (00:11→12:42)
--- NOTE | 2020-10-03 01:15 | NUR ---
MADE ROUNDS. PATIENT IS ASLEEP. NO S/S ACUTE DISTRESS. CALL LIGHT IN REACH AT ALL TIMES.
--- NOTE | 2020-10-03 03:07 | NUR ---
PATIENT ASLEEP. NO S/S ACUTE DISTRESS. CALL LIGHT WITHIN REACH AT ALL TIMES.
[2020-10-03 04:00] VITALS: BP 136/76
--- NOTE | 2020-10-03 05:08 | NUR ---
PATIENT IS SLEEPING. NO S/S ACUTE DISTRESS. CALL LIGHT IN REACH AT ALL TIMES.
[2020-10-03 05:59] LABS: BASOPHILS # (AUTO) 0.1 K/uL (0.00-0.22); BASOPHILS % (AUTO) 1.5 % (0.0-2.0); EOSINOPHILS # (AUTO) 0.1 K/uL (0-0.4); EOSINOPHILS % (AUTO) 3.3 % (0.0-4.0); HEMATOCRIT 34.8 % (36-48); HEMOGLOBIN 11.1 g/dL (12.0-16.0); LYMPHOCYTES # (AUTO) 1.2 K/uL (2.5-16.5); LYMPHOCYTES % (AUTO) 29.9 % (20.5-51.1); MEAN CORPUSCULAR HEMOGLOBIN 25 pg (27-31); MEAN CORPUSCULAR HGB CONC 32 g/dL (33-37); MEAN CORPUSCULAR VOLUME 79.7 fL (80-94); MONOCYTES # (AUTO) 0.5 K/uL (0.8-1.0); MONOCYTES % (AUTO) 12.1 % (1.7-9.3); NEUTROPHILS # (AUTO) 2.1 K/uL (1.8-7.7); NEUTROPHILS % (AUTO) 53.2 % (42.2-75.2); PLATELET COUNT (AUTO) 198 K/uL (140-450); RED BLOOD CELL COUNT(AUTO) 4.37 MIL/uL (4.20-5.40); RED CELL DISTRIBUTION WIDTH 17.2 % (11.6-13.7); WHITE BLOOD COUNT (AUTO) 3.9 K/uL (4.8-10.8)
[2020-10-03 06:44] LABS: ANION GAP 7.2 (8-16); CARBON DIOXIDE 33.9 mmol/L (21-32); CREATININE 1.3 mg/dL (0.6-1.3); POTASSIUM 4.1 mmol/L (3.5-5.1)
[2020-10-03 06:47] LABS: MAGNESIUM 1.6 mg/dL (1.8-2.4)
[2020-10-03 08:00] VITALS: BP 123/73
[2020-10-03] MEDS: ASPIRIN 81 MG TAB.CHEW PO SCH (08:25)
[2020-10-03] MEDS: FUROSEMIDE 40 MG/4 ML VIAL IVP SCH ×2 (08:26→12:31)
[2020-10-03] MEDS: carvediloL 6.25 MG TAB PO SCH ×2 (08:26→20:09)
[2020-10-03] MEDS: DOCUSATE SODIUM 100 MG GELCAP PO SCH ×2 (08:27→20:09)
[2020-10-03] MEDS: APIXABAN 2.5 MG TAB PO SCH ×2 (08:28→20:16)
--- NOTE | 2020-10-03 08:38 | NUR ---
CHECKED BP PRIOR TO MED ADMINISTER, BP 126/69 PULSE 75. ADMINISTERED SCHEDULED AM MEDS, MEDS EDUCATION PROVIDED TO PATIENT, PATIENT VERBALIZED UNDERSTANDING. PATIENT REFUSED COLACE AND SAYING " I DON'T NEED IT. I AM GOING TO TO BATHROOM FINE." HOLD COLACE. PATIENT TOLERATED PO AND IV PUSH MEDS WELL. PATIENT IS SITTING UP ON BED AND EATING HER BREAKFAST, DENIED OF ANY DISTRESS. NO SIGNS OF ACUTE DISTRESS NOTED. SAFETY MEASURES IN PLACE. INSTRUCTED PATIENT TO USE THE CALL LIGHT FOR ANY ASSISTANCE AND PATIENT AWARE.
--- NOTE | 2020-10-03 11:05 | NUR ---
PATIENT IS AWAKE AND RESTING ON BED. DENIED OF ANY DISTRESS. SAFETY MEASURES IN PLACE.
[2020-10-03 12:00] VITALS: BP 127/69
--- NOTE | 2020-10-03 12:31 | NUR ---
SCHEDULED LASIX GIVEN, PATIENT IS EATING LUNCH AT THIS TIME. DENIED OF ANY DISTRESS. SAFETY MEASURES IN PLACE.
--- NOTE | 2020-10-03 12:45 | NUR ---
ATTENDED TO CALL LIGHT, PATIENT COMPLAINED SHE HAS 9/10 PAIN ON HER BACK AND LEGS, NON-RADIANT. PATIENT IS FEELING RESTLESS, MOANING, MEDICATED WITH PRN PAIN MED, MED EDUCATION PROVIDED, PATIENT VERBALIZED UNDERSTANDING. PATIENT IS RESTING ON BED AT THIS TIME. SAFETY MEASURES IN PLACE.
--- NOTE | 2020-10-03 13:51 | NUR ---
RECEIVED CRITICAL LAB FOR TROPONIN 0.180, TRENDING DOWN, NOT REPORTED.
--- NOTE | 2020-10-03 15:15 | NUR ---
RECEIVED TORB ORDER FROM DR FERNANDO Vela FOR 2 GM MAG RIDER ONCE VIA IV TO REPLENISH MAG 1.6L FROM AM LAB.
--- NOTE | 2020-10-03 15:25 | NUR ---
ADMINISTERED MAG RIDER 2G FOR LOW MAG FROM AM LAB 1.6, MED EDUCATION PROVIDED TO PATIENT, PATIENT VERBALIZED UNDERSTANDING. SAFETY MEASURES IN PLACE.
[2020-10-03 16:00] VITALS: BP 126/69
[2020-10-03] MEDS ORDERED: MAG SULF 2000 MG/WATER PREMIX 50 ML IV SCH (16:00)
--- NOTE | 2020-10-03 17:34 | NUR ---
ATTENDED TO CALL LIGHT, PATIENT REQUEST FOR CRACKERS, PROVIDED. PATIENT AWAKE AND RESTING ON BED. DENIED OF ANY DISTRESS. SAFETY MEASURES IN PLACE.
--- NOTE | 2020-10-03 19:22 | NUR ---
RECEIVED PATIENT FROM AM SHIFT NURSE FOR CONTINUITY OF CARE. ALERT AND ABLE TO MAKE NEEDS KNOWN. RESPIRATIONS EVEN, UNLABORED. CONTINUES ON O2 2L VIA NC, O2SAT 100%. NO S/S RESPIRATORY DISTRESS. S1/S2 AUSCULTATED. TELE MONITORING. SKIN WARM, DRY. SALINE LOCK TO RIGHT WRIST 20G PATENT/INTACT. NO C/O PAIN. ABDOMEN SOFT, NONTENDER, NONDISTENDED. BOWEL SOUNDS ACTIVE x4 QUADRANTS. PATIENT IS CONTINENT OF B/B. PLAN OF CARE DISCUSSED. SAFETY PRECAUTIONS IN PLACE. CALL LIGHT IN REACH. Addendum: 10/03/20 at 1931 by Pearl Don RN PATIENT IS ON ROOM AIR.
--- NOTE | 2020-10-03 19:22 | NUR ---
ENDORSED PATIENT TO GRAPHIC ENGINEER NURSE FOR CONTINUITY OF CARE. PATIENT IS IN STABLE CONDITION.
[2020-10-03 20:00] VITALS: BP 153/98
[2020-10-03] MEDS: BUMETANIDE 1 MG/4 ML VIAL IV SCH (20:09)
[2020-10-03] MEDS: ATORVASTATIN 20 MG TAB PO SCH (20:16)
[2020-10-03] MEDS: INSULIN LANTUS 100 UNITS/ML 10 ML VIAL SUBQ SCH (20:16)
--- NOTE | 2020-10-03 21:31 | NUR ---
DUE MEDS GIVEN. PATIENT RESTING COMFORTABLY IN BED. CALL LIGHT IN REACH AT ALL TIMES.
--- NOTE | 2020-10-03 23:31 | NUR ---
PATIENT RESTING COMFORTABLY IN BED. CALL LIGHT IN REACH AT ALL TIMES.
[2020-10-04] VITALS: BP 141/75
[2020-10-04] MEDS: MORPHINE SULFATE 2 MG/ML SYR IVP PRN ×4 (00:10→20:48)
--- NOTE | 2020-10-04 01:07 | NUR ---
MADE ROUNDS. PATIENT IS ASLEEP. NO S/S ACUTE DISTRESS. NO S/S RESPIRATORY DISTRESS. CALL LIGHT IN REACH AT ALL TIMES.
--- NOTE | 2020-10-04 03:05 | NUR ---
PATIENT IS ASLEEP.
[2020-10-04 04:00] VITALS: BP 135/81
[2020-10-04 06:22] LABS: ANION GAP 8.6 (8-16); CARBON DIOXIDE 35.1 mmol/L (21-32); CREATININE 1.1 mg/dL (0.6-1.3); POTASSIUM 3.7 mmol/L (3.5-5.1)
[2020-10-04 06:23] LABS: MAGNESIUM 1.6 mg/dL (1.8-2.4); PHOSPHORUS 4.5 mg/dL (2.5-4.9)
[2020-10-04 06:48] LABS: BASOPHILS % (AUTO) 1.1 % (0.0-2.0); EOSINOPHILS # (AUTO) 0.1 K/uL (0-0.4); EOSINOPHILS % (AUTO) 2.6 % (0.0-4.0); HEMATOCRIT 35.5 % (36-48); HEMOGLOBIN 11.3 g/dL (12.0-16.0); LYMPHOCYTES # (AUTO) 1.3 K/uL (2.5-16.5); LYMPHOCYTES % (AUTO) 39.2 % (20.5-51.1); MEAN CORPUSCULAR HEMOGLOBIN 25 pg (27-31); MEAN CORPUSCULAR HGB CONC 32 g/dL (33-37); MEAN CORPUSCULAR VOLUME 79.7 fL (80-94); MONOCYTES # (AUTO) 0.4 K/uL (0.8-1.0); MONOCYTES % (AUTO) 10.7 % (1.7-9.3); NEUTROPHILS # (AUTO) 1.6 K/uL (1.8-7.7); NEUTROPHILS % (AUTO) 46.4 % (42.2-75.2); PLATELET COUNT (AUTO) 207 K/uL (140-450); RED BLOOD CELL COUNT(AUTO) 4.45 MIL/uL (4.20-5.40); RED CELL DISTRIBUTION WIDTH 17.4 % (11.6-13.7); WHITE BLOOD COUNT (AUTO) 3.4 K/uL (4.8-10.8)
[2020-10-04 08:00] VITALS: BP 140/77
[2020-10-04] MEDS: carvediloL 6.25 MG TAB PO SCH ×2 (08:36→20:47)
[2020-10-04] MEDS: ASPIRIN 81 MG TAB.CHEW PO SCH (08:37)
[2020-10-04] MEDS: BUMETANIDE 1 MG/4 ML VIAL IV SCH ×2 (08:37→20:46)
[2020-10-04] MEDS: metOLazone 5 MG TAB PO SCH (08:37)
[2020-10-04] MEDS: APIXABAN 2.5 MG TAB PO SCH ×2 (08:40→20:50)
[2020-10-04] MEDS: DOCUSATE SODIUM 100 MG GELCAP PO SCH ×2 (08:41→20:46)
--- NOTE | 2020-10-04 08:45 | NUR ---
BP CHECKED PRIOR TO MED ADMINISTER, BP 144/88 PULSE 78. ADMINISTERED SCHEDULED MEDS PER MD ORDER, MEDS EDUCATION PROVIDED, PATIENT VERBALIZED UNDERSTANDING, AND PATIENT REFUSED COLACE. PATIENT TOLERATED PO WELL. DISCUSSED PLAN OF CARE WITH PATIENT, PATIENT VERBALIZED UNDERSTANDING. PATIENT AWAKE AND RESTING ON BED AT THIS TIME, USING HER PHONE AT THIS TIME. DENIED OF ANY DISTRESS. SAFETY MEASURES IN PLACE. BED IN LOW POSITION, CALL LIGHT WITHIN REACH. INSTRUCTED PATIENT TO USE THE CALL LIGHT FOR ANY ASSISTANCE.
--- NOTE | 2020-10-04 10:20 | NUR ---
ATTENDED TO CALL LIGHT, PATIENT COMPLAINED 9/10 BACK PAIN, NON-RADIANT, [place], SHE FEELS RESTLESS. MEDICATED WITH PRN PAIN MED, MED EDUCATION PROVIDED. PATIENT VERBALIZED UNDERSTANDING. PATIENT IS RESTING AND LOOKING HER PHONE. SAFETY MEASURES IN PLACE.
--- NOTE | 2020-10-04 11:50 | NUR ---
PATIENT IS RESTING ON BED AND USING HER PHONE AT THIS TIME. DENIED OF ANY DISTRESS. RESPIRATION EVEN, UNLABORED ON ROOM AIR. SAFETY MEASURES IN PLACE.
[2020-10-04 12:00] VITALS: BP 142/72
--- NOTE | 2020-10-04 13:14 | NUR ---
PATIENT AWAKE AND WATCHING TV ON BED AT THIS TIME. NO SIGNS OF ACUTE DISTRESS NOTED. SAFETY MEASURES IN PLACE.
--- NOTE | 2020-10-04 14:06 | NUR ---
DR FERNANDO Hsu MADE AWARE OF LOW MAG 1.6 FROM AM LAB AT NURSING STATION. RECEIVED TORB ORDER FOR 2 GM MAG RIDER VIA IV ONCE, REPEATED AND CONFIRMED ORDER WITH DR FERNANDO Hsu
[2020-10-04] MEDS ORDERED: MAG SULF 2000 MG/WATER PREMIX 50 ML IV SCH (15:00)
--- NOTE | 2020-10-04 15:31 | NUR ---
2 GM MAG RIDER GIVEN, MED EDUCATION PROVIDED. PATIENT STATED SHE HAS 8/10 PAIN ON HER BACK, WILL MEDICATED. PATIENT IS RESTING ON BED AT THIS TIME. SAFETY MEASURES IN PLACE.
--- NOTE | 2020-10-04 15:46 | NUR ---
ATTENDED TO CALL LIGHT, PATIENT STATED SHE HAS 8/10 PAIN ON HER BACK, MEDICATED WITH PRN MORPHINE, MED EDUCATION PROVIDED, PATIENT VERBALIZED UNDERSTANDING. PATIENT ALSO REQUESTS FOR CRACKER AND ICE CHIPS, PROVIDED. PATIENT IS RESTING ON BED AT THIS TIME. SAFETY MEASURES IN PLACE.
[2020-10-04 16:00] VITALS: BP 137/69
--- NOTE | 2020-10-04 17:55 | NUR ---
PATIENT IS EATING DINNER ON BED AT THIS TIME. NO SIGNS OF ACUTE DISTRESS NOTED. SAFETY MEASURES IN PLACE.
--- NOTE | 2020-10-04 19:25 | NUR ---
ENDORSED PATIENT AT BEDSIDE TO LOCKSTITCH LINING SETTER NURSE CARROLL FOR CONTINUITY OF CARE. PATIENT AWAKE AND WATCHING TV ON BED. NO SIGNS OF ACUTE DISTRESS NOTED. PATIENT IS IN STABLE CONDITION.
[2020-10-04 20:00] VITALS: BP 136/84
--- NOTE | 2020-10-04 20:00 | NUR ---
RECEIVED BEDSIDE REPORT EARLIER FROM DAY RN REGARDING THE PATIENT FOR CONTINUITY OF CARE. RECEIVED PATIENT A/A/OX4, SITTING IN BED WATCHING TV. NO S/SX OF DISTRESS NOTED. NOT COMPLAIN AT THIS TIME. VITAL SIGNS STABLE, AFEBRILE, SATING 96% ON RA. FALL PRECAUTION IMPLEMENTED. INSTRUCTED TO CALL FO ASSISTANCE AT ALL TIMES. PT VERBALIZED UNDERSTANDING WITH THE POC. CALL LIGHT WITHIN REACH. WILL CONTINUE POC AND OBSERVATION.
[2020-10-04] MEDS: ATORVASTATIN 20 MG TAB PO SCH (20:47)
[2020-10-04] MEDS: ACETAZOLAMIDE SOD 250 MG TAB PO SCH (20:48)
[2020-10-04] MEDS: INSULIN LANTUS 100 UNITS/ML 10 ML VIAL SUBQ SCH (20:51)
[2020-10-04] MEDS: BLOOD GLUCOSE MONITORING 1 DEV DEV FS SCH (21:00)
--- NOTE | 2020-10-04 22:00 | NUR ---
ADMINISTERED ALL THE SCHEDULED MEDICATIONS ORDERED. PATIENT TOLERATED IT WELL. NO ADVERSE DRUG REACTIONS NOTED. NO COMPLAIN FROM THE PATIENT. WILL CONTINUE TO OBSERVE THE PATIENT.
[2020-10-04] MEDS ORDERED: INSULIN LISPRO SLIDING SCALE 100 UNITS/ML VIAL SUBQ PRN (22:50)
--- NOTE | 2020-10-05 | NUR ---
PATIENT STILL AWAKE AND ASKING FOR SNACKS AGAIN. USED THE BEDSIDE COMMODE ON HER OWN AND TOLERATED IT WELL.
--- NOTE | 2020-10-05 02:00 | NUR ---
Patient asleep at this time. Visible chest rise and fall noted. No sign and symptoms of distress noted. Will continue to observe. Safety measures in placed.
[2020-10-05] MEDS: MORPHINE SULFATE 2 MG/ML SYR IVP PRN ×2 (02:05→13:34)
[2020-10-05 04:00] VITALS: BP 145/84
--- NOTE | 2020-10-05 04:00 | NUR ---
VITAL SIGNS STABLE, AFEBRILE, SATING 97% ON RA. NO S/SX OF DISTRESS NOTED. NO COMPLAIN OF PAIN AT THIS TIME. CALL LIGHT WITHIN REACH.
[2020-10-05 05:52] LABS: BASOPHILS % (AUTO) 0.8 % (0.0-2.0); EOSINOPHILS # (AUTO) 0.1 K/uL (0-0.4); EOSINOPHILS % (AUTO) 2.6 % (0.0-4.0); HEMATOCRIT 36.7 % (36-48); HEMOGLOBIN 11.7 g/dL (12.0-16.0); LYMPHOCYTES % (AUTO) 26.6 % (20.5-51.1); MEAN CORPUSCULAR HEMOGLOBIN 25 pg (27-31); MEAN CORPUSCULAR HGB CONC 32 g/dL (33-37); MEAN CORPUSCULAR VOLUME 79.4 fL (80-94); MONOCYTES # (AUTO) 0.5 K/uL (0.8-1.0); NEUTROPHILS # (AUTO) 2.2 K/uL (1.8-7.7); PLATELET COUNT (AUTO) 215 K/uL (140-450); RED BLOOD CELL COUNT(AUTO) 4.62 MIL/uL (4.20-5.40); RED CELL DISTRIBUTION WIDTH 17.4 % (11.6-13.7); WHITE BLOOD COUNT (AUTO) 3.9 K/uL (4.8-10.8)
--- NOTE | 2020-10-05 06:00 | NUR ---
NO ACUTE EVENTS THROUGHOUT THE NIGHT. PT STABLE. NOT IN ANY DISTRESS AND NO COMPLAIN AT THIS TIME. ALL NEEDS ATTENDED. CALL LIGHT WITHIN REACH. WILL ENDORSE THE PATIENT TO THE ONCOMING RN FOR CONTINUITY OF CARE.
[2020-10-05] MEDS: BLOOD GLUCOSE MONITORING 1 DEV DEV FS SCH ×2 (06:14→11:30)
[2020-10-05 06:17] LABS: ALBUMIN 3.3 g/dL (3.4-5.0); ANION GAP 6.8 (8-16); CARBON DIOXIDE 36.7 mmol/L (21-32); CREATININE 1.3 mg/dL (0.6-1.3); MAGNESIUM 1.9 mg/dL (1.8-2.4); PHOSPHORUS 4.7 mg/dL (2.5-4.9); POTASSIUM 3.5 mmol/L (3.5-5.1); TOTAL BILIRUBIN 0.6 mg/dL (0.0-1.0)
--- NOTE | 2020-10-05 07:36 | NUR ---
ENDORSED THE PATIENT TO BELINDA SOLORIO FOR CONTINUITY OF CARE. PATIENT STABLE. SIGNING OFF.
[2020-10-05] MEDS: BUMETANIDE 1 MG/4 ML VIAL IV SCH (10:39)
[2020-10-05] MEDS: carvediloL 6.25 MG TAB PO SCH (10:40)
[2020-10-05] MEDS: ASPIRIN 81 MG TAB.CHEW PO SCH (10:40)
[2020-10-05] MEDS: APIXABAN 2.5 MG TAB PO SCH (10:42)
[2020-10-05] MEDS: DOCUSATE SODIUM 100 MG GELCAP PO SCH (10:43)
[2020-10-05] MEDS: metOLazone 5 MG TAB PO SCH (10:43)
[2020-10-05] MEDS: ACETAZOLAMIDE SOD 250 MG TAB PO SCH (10:44)
[2020-10-05] MEDS ORDERED: ASPI81CT95 PO (13:53)
[2020-10-05] MEDS ORDERED: BUME1TAB92 PO (13:53)
[2020-10-05] MEDS ORDERED: DIA250 PO (13:53)
[2020-10-05] MEDS ORDERED: METO5TAB9 PO (13:53)
[2020-10-05 15:45] VITALS: BP 130/62
== END 2020-10-05 17:40 | disposition home or self-care (01) | DRG 194 ==
LOC: MED 22:58 → MTU 10-02 04:57 → MMU 10-02 10:58
PROVIDERS: ADMIT Preventive Medicine Preventive Medicine/Occupational Environmental Medicine; ATTEND Preventive Medicine Preventive Medicine/Occupational Environmental Medicine
DX: I13.0 Hypertensive heart and chronic kidney disease with heart failure and stage 1 through stage 4 chronic kidney disease, or unspecified chronic kidney disease (principal); I21.A1 Myocardial infarction type 2; N17.9 Acute kidney failure, unspecified; I82.403 Acute embolism and thrombosis of unspecified deep veins of lower extremity, bilateral; R07.89 Other chest pain; I50.23 Acute on chronic systolic (congestive) heart failure; E11.21 Type 2 diabetes mellitus with diabetic nephropathy; I42.8 Other cardiomyopathies; E66.01 Morbid (severe) obesity due to excess calories; E11.22 Type 2 diabetes mellitus with diabetic chronic kidney disease; E83.51 Hypocalcemia; E88.09 Other disorders of plasma-protein metabolism, not elsewhere classified; D64.9 Anemia, unspecified; D72.819 Decreased white blood cell count, unspecified; Z68.37 Body mass index [BMI] 37.0-37.9, adult; E78.5 Hyperlipidemia, unspecified; I25.10 Atherosclerotic heart disease of native coronary artery without angina pectoris; J44.9 Chronic obstructive pulmonary disease, unspecified; N18.2 Chronic kidney disease, stage 2 (mild); G89.29 Other chronic pain; E03.9 Hypothyroidism, unspecified; I42.9 Cardiomyopathy, unspecified; Z91.19 Patient's noncompliance with other medical treatment and regimen; E11.65 Type 2 diabetes mellitus with hyperglycemia; Z86.718 Personal history of other venous thrombosis and embolism; Z98.51 Tubal ligation status; Z20.822 Contact with and (suspected) exposure to COVID-19
CPT/HCPCS: 36415; 71045; 80048; 80053; 82948; 83735; 83880; 84100; 84443; 84484; 85025; 87081; 93005; 96372; 96374; 96375; 96376; 99291; J1650; J1815; J1940; J2270; J2405; J3475; J3490

== ENCOUNTER 2020-12-12 21:02 | Emergency (ER) | payer MEDICAID, SELFPAY ==
[~2020-12-12] VITALS: Ht 172.7 cm; Wt 112.5 kg
[~2020-12-12 21:02] MED LIST changes: +ASPI81CT95 PO; +BUME1TAB92 PO; +DIA250 PO; +DOCU250C39 PO; -FURO-570 PO; +METO5TAB9 PO; -[UNRECOGNIZED DRUG - CODE] PO
[2020-12-12 21:04] VITALS: BP 176/102
--- NOTE | 2020-12-12 21:04 | NUR ---
TO BED VIA WHEELCHAIR
--- NOTE | 2020-12-12 21:15 | NUR ---
EMT at bedside for EKG
--- NOTE | 2020-12-12 21:15 | NUR ---
55 y/o F BIB self from home with c/c chest pain, SOB and bilateral LE edema x 3-4 days. Patient A&Ox4, wheelchair assisted, states seen at [facility] 3 days ago and discharged home. Ptaient reports chest pain remained since discharge, given Lasix without relief. Reports sternal 9/10, throbbing/pressure/intermittent, radiating to bilateral shoulders and neck. Reports SOB and swelling to bilateral thighs. Denies nausea, vomiting, fever, chills, dizziness, headache. States 81mg ASA x 6 doses and Nitro patch prior to arrival. Pt placed onto school bus monitor and gown. VSS; RR even/unlabored. SpO2 99% on room air; Lung sounds CTA. Skin warm/dry. Bed locked in lowest position, side rails x 2 for pt safety, call light in reach. PMH: Asthma, CHF, COPD, Diabetes, Hypertension A: see list
--- NOTE | 2020-12-12 21:18 | NUR ---
RAD at bedside
--- NOTE | 2020-12-12 21:18 | NUR ---
Lab at bedside for blood draw
[2020-12-12 21:28] LABS: BASOPHILS # (AUTO) 0.1 K/uL (0.00-0.22); BASOPHILS % (AUTO) 1.8 % (0.0-2.0); EOSINOPHILS # (AUTO) 0.1 K/uL (0-0.4); EOSINOPHILS % (AUTO) 2.1 % (0.0-4.0); HEMATOCRIT 34.2 % (36-48); HEMOGLOBIN 11.3 g/dL (12.0-16.0); LYMPHOCYTES # (AUTO) 1.8 K/uL (2.5-16.5); LYMPHOCYTES % (AUTO) 34.5 % (20.5-51.1); MEAN CORPUSCULAR HEMOGLOBIN 25 pg (27-31); MEAN CORPUSCULAR HGB CONC 33 g/dL (33-37); MEAN CORPUSCULAR VOLUME 76.6 fL (80-94); MONOCYTES # (AUTO) 0.3 K/uL (0.8-1.0); MONOCYTES % (AUTO) 5.5 % (1.7-9.3); NEUTROPHILS % (AUTO) 56.1 % (42.2-75.2); PLATELET COUNT (AUTO) 187 K/uL (140-450); RED BLOOD CELL COUNT(AUTO) 4.47 MIL/uL (4.20-5.40); RED CELL DISTRIBUTION WIDTH 19.3 % (11.6-13.7); WHITE BLOOD COUNT (AUTO) 5.3 K/uL (4.8-10.8)
[2020-12-12 21:43] LABS: ALBUMIN 3.1 g/dL (3.4-5.0); CARBON DIOXIDE 31.8 mmol/L (21-32); CREATININE 1.3 mg/dL (0.6-1.3); POTASSIUM 3.8 mmol/L (3.5-5.1); TOTAL BILIRUBIN 0.5 mg/dL (0.0-1.0)
[2020-12-12] MEDS ORDERED: BUMETANIDE 1 MG/4 ML VIAL IV ONE (22:05)
--- NOTE | 2020-12-12 22:11 | NUR ---
Dr. Anglin examining patient.
[2020-12-12] MEDS ORDERED: ONDANSETRON 4 MG ODT PO ONE (22:15)
[2020-12-12] MEDS ORDERED: oxyCODONE/APAP 5/325 MG 1 TAB TAB PO ONE (22:15)
--- NOTE | 2020-12-12 23:10 | NUR ---
Bedside commode provided
[2020-12-12 23:14] VITALS: BP 169/100
--- NOTE | 2020-12-12 23:14 | NUR ---
Patient reports + relief to pain and nausea. Rates pain 8/10 at this time. All pt needs met.
--- NOTE | 2020-12-12 23:31 | NUR ---
Patient ambulated from bed onto bedside commode
== END 2020-12-13 00:05 | disposition home or self-care (01) ==
LOC: MED 21:02
DX: E87.70 Fluid overload, unspecified (principal); G89.29 Other chronic pain; R06.02 Shortness of breath; F43.9 Reaction to severe stress, unspecified; I11.0 Hypertensive heart disease with heart failure; I50.9 Heart failure, unspecified; J44.9 Chronic obstructive pulmonary disease, unspecified; E11.9 Type 2 diabetes mellitus without complications; Z79.899 Other long term (current) drug therapy; Z79.4 Long term (current) use of insulin; Z88.6 Allergy status to analgesic agent; Z88.5 Allergy status to narcotic agent; Z88.8 Allergy status to other drugs, medicaments and biological substances
CPT/HCPCS: 36415; 71045; 80053; 83880; 84484; 85025; 93005; 96374; 99285; J3490; Q0092; Q0162

== ENCOUNTER 2021-05-04 15:29 | Observation (INO) | payer MEDICAID, SELFPAY ==
[~2021-05-04] VITALS: Ht 172.7 cm; Wt 118.8 kg
[~2021-05-04 15:29] MED LIST changes: +AMLO2.5T PO; -DIA250 PO; -DOCU-299 PO; -DOCU250C39 PO; +FURO-570 PO; +HUM SUBQ; +LOSA50TA1 PO; +OXYC5TAB4 PO; +PENI500T20 PO; +SPIR25TA PO
[2021-05-04 15:36] VITALS: BP 173/118
--- NOTE | 2021-05-04 16:00 | NUR ---
COVID MELVIN SWAB DONE.
--- NOTE | 2021-05-04 16:03 | NUR ---
PT TAKEN TO XRAY VIA W/C
--- NOTE | 2021-05-04 16:10 | NUR ---
PT RETURNED FROM XRAY
[2021-05-04 16:33] LABS: BASOPHILS # (AUTO) 0.1 K/uL (0.00-0.22); BASOPHILS % (AUTO) 2.1 % (0.0-2.0); EOSINOPHILS # (AUTO) 0.1 K/uL (0-0.4); EOSINOPHILS % (AUTO) 1.4 % (0.0-4.0); HEMATOCRIT 36.3 % (36-48); HEMOGLOBIN 11.6 g/dL (12.0-16.0); LYMPHOCYTES # (AUTO) 1.1 K/uL (2.5-16.5); LYMPHOCYTES % (AUTO) 27.8 % (20.5-51.1); MEAN CORPUSCULAR HEMOGLOBIN 25 pg (27-31); MEAN CORPUSCULAR HGB CONC 32 g/dL (33-37); MEAN CORPUSCULAR VOLUME 77.8 fL (80-94); MONOCYTES # (AUTO) 0.3 K/uL (0.8-1.0); MONOCYTES % (AUTO) 6.8 % (1.7-9.3); NEUTROPHILS # (AUTO) 2.5 K/uL (1.8-7.7); NEUTROPHILS % (AUTO) 61.9 % (42.2-75.2); PLATELET COUNT (AUTO) 217 K/uL (140-450); RED BLOOD CELL COUNT(AUTO) 4.67 MIL/uL (4.20-5.40); RED CELL DISTRIBUTION WIDTH 17.4 % (11.6-13.7)
[2021-05-04 16:50] LABS: ANION GAP 11.3 (8-16); CARBON DIOXIDE 27.8 mmol/L (21-32); CREATININE 1.3 mg/dL (0.6-1.3); POTASSIUM 4.1 mmol/L (3.5-5.1)
[2021-05-04] MEDS ORDERED: FUROSEMIDE 100 MG/10 ML VIAL IVP ONE (16:50)
--- NOTE | 2021-05-04 17:15 | NUR ---
PATIENT W/C ASSISTED TO BED 13
[2021-05-04] MEDS ORDERED: MORPHINE SULFATE 4 MG/ML SYR IVP ONE (17:20)
--- NOTE | 2021-05-04 17:25 | NUR ---
56/F PRESENTS TO ED WITH C/O CHEST PAIN, SOB AND BILATERAL LEG SWELLING X1 WEEK. PATIENT STATES PAIN HAS BEEN WORSENING, STATES 10/10 SHARP, PRESSURE LIKE PAIN THAT IS RADIATING TO HER LEFT ARM. PATIENT STATES SHE HAS BEEN TAKING NORCO AND HER LASIX AT HOME WITH NO RELIEF, DENIES FEVER, CHILLS, N/V/D, DYSURIA OR ABDOMINAL PAIN.
--- NOTE | 2021-05-04 18:15 | NUR ---
PATIENT ASSISTED TO RESTROOM VIA WHEELCHAIR.
--- NOTE | 2021-05-04 18:22 | NUR ---
PATIENT ASSISTED BACK TO BED VIA WHEELCHAIR, RECONNECTED TO BEDSIDE MONITOR. SAFETY PRECAUTIONS PUT INTO PLACE. WILL CONTINUE TO MONITOR.
[2021-05-04 18:45] LABS: TOTAL BILIRUBIN 0.5 mg/dL (0.0-1.0)
[2021-05-04] MEDS ORDERED: KCL 20 MEQ/WATER INJ PREMIX 200 ML IV PRN (18:55)
[2021-05-04] MEDS ORDERED: MAGNESIUM OXIDE 400 MG TAB PO PRN (18:55)
[2021-05-04] MEDS ORDERED: ACETAMINOPHEN 325 MG TAB PO PRN (18:55)
[2021-05-04] MEDS ORDERED: POTASSIUM CHLORIDE 10 MEQ TABER PO PRN (18:55)
[2021-05-04] MEDS ORDERED: MAG SULF 2000 MG/WATER PREMIX 50 ML IV PRN (18:55)
[2021-05-04] MEDS ORDERED: DEXTROSE 50% 50 ML SYR IVP PRN (19:00)
--- NOTE | 2021-05-04 19:15 | NUR ---
Pt report given to BELINDA WILEY. Transfer of care at this time.
--- NOTE | 2021-05-04 19:57 | NUR ---
Assisted patient to restroom via wheelchair.
--- NOTE | 2021-05-04 20:08 | NUR ---
[facility] , patient refused.
--- NOTE | 2021-05-04 20:31 | NUR ---
Med rec reviewed with patient.
[2021-05-04] MEDS: MORPHINE SULFATE 4 MG/ML SYR IVP PRN (20:43)
--- NOTE | 2021-05-04 20:43 | NUR ---
Patient request more pain medication for chest pain, given Morphine 4 mg IV as PRN order for pain.
[2021-05-04] MEDS: BLOOD GLUCOSE MONITORING 1 DEV DEV FS SCH (21:05)
[2021-05-04] MEDS: INSULIN LISPRO SLIDING SCALE 100 UNITS/ML VIAL SUBQ PRN (21:28)
--- NOTE | 2021-05-04 21:28 | NUR ---
Reported second trop to Dr. Collier , Dr. Collier is aware.
--- NOTE | 2021-05-04 22:31 | NUR ---
BS 200. Provided Crakers as patient request.
[2021-05-04] MEDS ORDERED: oxyCODONE 5 MG TAB PO PRN (22:40)
[2021-05-04] MEDS ORDERED: ALBUTEROL HFA MDI 90 MCG/ACTUATION 8 GM INH PRN (22:40)
[2021-05-04] MEDS ORDERED: CLONIDINE HYDROCHLORIDE 0.1 MG TAB PO PRN (22:40)
[2021-05-04] MEDS ORDERED: HYDROcodone/APAP 5/325 MG 1 TAB TAB PO PRN (22:40)
[2021-05-04] MEDS ORDERED: NITROGLYCERIN 0.4 MG TAB SL PRN (22:40)
--- NOTE | 2021-05-04 23:18 | NUR ---
Assisted patient to restroom via wheelchair.
--- NOTE | 2021-05-04 23:48 | NUR ---
Patient appears to be resting comfortably in bed. Vital Signs within normal limits. Respirations even and unlabored.
[2021-05-05] MEDS: ONDANSETRON 4 MG/2 ML VIAL IVP PRN ×2 (00:54→08:42)
--- NOTE | 2021-05-05 00:54 | NUR ---
pt had episode of vomiting. PRN zofran given.
[2021-05-05] MEDS: MORPHINE SULFATE 4 MG/ML SYR IVP PRN ×4 (01:08→19:56)
--- NOTE | 2021-05-05 01:16 | NUR ---
Moved to bed 3, place patient on cream ripener and pulse ox.
--- NOTE | 2021-05-05 01:35 | NUR ---
BP 171/110- given Clonidine 0.2 mg PO as protocol for High BP.
--- NOTE | 2021-05-05 02:40 | NUR ---
Patient appears to be resting comfortably in bed. Vital Signs within normal limits. Respirations even and unlabored.
--- NOTE | 2021-05-05 03:32 | NUR ---
Patient appears to be resting comfortably in bed. Vital Signs within normal limits. Respirations even and unlabored.
--- NOTE | 2021-05-05 04:16 | NUR ---
BP 149/104, Patient reported, started chest pain, pain rate 8/10
[2021-05-05] MEDS ORDERED: MORPHINE SULFATE 2 MG/ML SYR ONE (04:49)
--- NOTE | 2021-05-05 05:47 | NUR ---
Patien is sleeping, BP 151/81, HR 90
--- NOTE | 2021-05-05 07:06 | NUR ---
BS 127. No insulin given as protocol
--- NOTE | 2021-05-05 07:25 | NUR ---
Report and continuation of care received from BELINDA Winkler.
[2021-05-05] MEDS: BLOOD GLUCOSE MONITORING 1 DEV DEV FS SCH ×4 (07:42→21:49)
[2021-05-05] MEDS: INSULIN LISPRO 100 UNITS/ML VIAL SUBQ SCH ×4 (08:00→21:58)
--- NOTE | 2021-05-05 08:01 | NUR ---
Patient presents with both eyes closed; patient awaken A&Ox4 GCS. lunchroom monitor in place. VSS. Respirations even/unlabored. Bed locked in lowest position, side rails x 1, call light in reach.
--- NOTE | 2021-05-05 08:26 | NUR ---
Breakfast mealtray at bedside. Patient awaken, assisted to high-fowlers position; completing meal at this time. All pt needs met.
[2021-05-05] MEDS ORDERED: amLODIPine 5 MG TAB ONE (08:30)
[2021-05-05] MEDS ORDERED: APIXABAN 2.5 MG TAB PO SCH (09:00)
[2021-05-05] MEDS ORDERED: ASPIRIN 81 MG TAB.CHEW PO SCH (09:00)
[2021-05-05] MEDS ORDERED: FUROSEMIDE 40 MG TAB PO SCH (09:00)
[2021-05-05] MEDS ORDERED: BUMETANIDE 1 MG TAB PO SCH (09:00)
[2021-05-05] MEDS: ASPIRIN 81 MG TAB.CHEW PO SCH (09:23)
[2021-05-05] MEDS: carvediloL 6.25 MG TAB PO SCH ×2 (09:24→21:50)
[2021-05-05] MEDS: DOCUSATE SODIUM 100 MG GELCAP PO SCH (09:24)
[2021-05-05 09:25] LABS: BASOPHILS # (AUTO) 0.1 K/uL (0.00-0.22); BASOPHILS % (AUTO) 1.7 % (0.0-2.0); EOSINOPHILS # (AUTO) 0.1 K/uL (0-0.4); EOSINOPHILS % (AUTO) 2.4 % (0.0-4.0); HEMATOCRIT 38.4 % (36-48); HEMOGLOBIN 12.4 g/dL (12.0-16.0); LYMPHOCYTES # (AUTO) 1.3 K/uL (2.5-16.5); LYMPHOCYTES % (AUTO) 37.4 % (20.5-51.1); MEAN CORPUSCULAR HEMOGLOBIN 25 pg (27-31); MEAN CORPUSCULAR HGB CONC 32 g/dL (33-37); MEAN CORPUSCULAR VOLUME 77.6 fL (80-94); MONOCYTES # (AUTO) 0.4 K/uL (0.8-1.0); MONOCYTES % (AUTO) 10.8 % (1.7-9.3); NEUTROPHILS # (AUTO) 1.7 K/uL (1.8-7.7); NEUTROPHILS % (AUTO) 47.7 % (42.2-75.2); PLATELET COUNT (AUTO) 232 K/uL (140-450); RED BLOOD CELL COUNT(AUTO) 4.95 MIL/uL (4.20-5.40); RED CELL DISTRIBUTION WIDTH 17.1 % (11.6-13.7); WHITE BLOOD COUNT (AUTO) 3.6 K/uL (4.8-10.8)
[2021-05-05] MEDS: amLODIPine 5 MG TAB PO SCH (09:25)
[2021-05-05] MEDS: metOLazone 5 MG TAB PO SCH (09:25)
[2021-05-05 09:35] LABS: ALBUMIN 3.3 g/dL (3.4-5.0); ANION GAP 12.7 (8-16); CARBON DIOXIDE 29.5 mmol/L (21-32); CREATININE 1.4 mg/dL (0.6-1.3); MAGNESIUM 1.8 mg/dL (1.8-2.4); POTASSIUM 4.2 mmol/L (3.5-5.1); TOTAL BILIRUBIN 0.7 mg/dL (0.0-1.0)
[2021-05-05] MEDS ORDERED: ALBUTEROL HFA MDI 90 MCG/ACTUATION 8 GM INH PRN (10:56)
--- NOTE | 2021-05-05 11:01 | NUR ---
Patient c/o pain 10/10; Morphine IVP to be given. RR 15 SpO2 100% on 2L by NC.
--- NOTE | 2021-05-05 11:05 | NUR ---
IV site to L hand flushed with NS; patent; no swelling/redness/coolness noted.
--- NOTE | 2021-05-05 12:05 | NUR ---
Lunch mealtray at bedside. Patient awaken, assisted to high-fowlers position; completing meal at this time. All pt needs met.
--- NOTE | 2021-05-05 12:10 | NUR ---
Pt reports + relief to pain 04/05 at this time. All pt needs met. Respirations even/unlabored.
--- NOTE | 2021-05-05 13:15 | NUR ---
Patient appears to be resting comfortably in bed. Vital Signs within normal limits. Respirations even and unlabored.
--- NOTE | 2021-05-05 14:12 | NUR ---
Patient resting in high-fowlers; monitor technician in place. RR 11 even/unlabored; SpO2 99% on 2L by NC. Bed locked in lowest position, side rails x 2. Patient states 7/10 pain, but tolerable no request for additional pain medications at this time.
[2021-05-05] MEDS: ISOSORBIDE DINITRATE 20 MG TAB PO SCH ×2 (14:18→17:36)
[2021-05-05] MEDS: INSULIN LISPRO SLIDING SCALE 100 UNITS/ML VIAL SUBQ PRN ×2 (16:56→22:01)
--- NOTE | 2021-05-05 17:12 | NUR ---
PATIENT HAS BEEN SCREENED AND CATEGORIZED MODERATE NUTRITION RISK. PATIENT WILL BE SEEN WITHIN 3-[address]. [address]
[2021-05-05] MEDS: FUROSEMIDE 40 MG/4 ML VIAL IVP SCH (17:17)
--- NOTE | 2021-05-05 17:25 | NUR ---
Purewick in place.
--- NOTE | 2021-05-05 17:38 | NUR ---
Patient voided 625 clear/yellow urine from pure wick. Urine discarded.
--- NOTE | 2021-05-05 19:19 | NUR ---
Report and transfer of care endorsed to BELINDA Argueta
--- NOTE | 2021-05-05 19:34 | NUR ---
Tea montero in [facility] - 05/05/21 at 1934 by MOSHE gave transfer of care report to karly leal
[2021-05-05] MEDS ORDERED: INSULIN LANTUS 100 UNITS/ML 10 ML VIAL SUBQ SCH (21:00)
[2021-05-05] MEDS ORDERED: ATORVASTATIN 20 MG TAB PO SCH (21:00)
--- NOTE | 2021-05-05 21:00 | NUR ---
Patient will be admitted to care of DR WELCH. Admited to TELE. Will go to room 121A. Belongings list completed. Report to TOMAS TREVINO.
[2021-05-05 21:10] VITALS: BP 119/82
--- NOTE | 2021-05-05 21:10 | NUR ---
PATIENT ARRIVED VIA GURNEY FROM ED TO TELEMETRY ROOM 121A. PATIENT IS AXO X4, ABLE TO TRANSFER SELF FROM [facility] TO HOSPITAL BED. COMPLAINS OF 6/10 BILATERAL LEG PAIN DUE TO CHF - EDEMA NOTED +2 BILATERALLY. MORPHINE GIVEN IN ED BEFORE TRANSFER. SKIN INTACT. VITAL SIGNS STABLE. PERIWICK IN PLACE. 22G NOTED TO LEFT HAND, PATENT AND FLUSHING, NO SIGNS OF INFECTIONS NOTED. CALL LIGHT WITHIN REACH, BED LOCKED AND LOWEST POSITION. WILL CONTINUE TO MONITOR.
[2021-05-05] MEDS: HYDROcodone/APAP 5/325 MG 1 TAB TAB PO PRN (21:55)
[2021-05-06] VITALS: BP 127/79
[2021-05-06] MEDS: MORPHINE SULFATE 4 MG/ML SYR IVP PRN ×3 (00:50→14:47)
[2021-05-06 04:00] VITALS: BP 118/70
[2021-05-06] MEDS: HYDROcodone/APAP 5/325 MG 1 TAB TAB PO PRN ×2 (04:34→08:53)
[2021-05-06 06:00] LABS: BASOPHILS # (AUTO) 0.1 K/uL (0.00-0.22); BASOPHILS % (AUTO) 1.5 % (0.0-2.0); EOSINOPHILS # (AUTO) 0.2 K/uL (0-0.4); EOSINOPHILS % (AUTO) 4.6 % (0.0-4.0); HEMATOCRIT 38.6 % (36-48); HEMOGLOBIN 12.4 g/dL (12.0-16.0); LYMPHOCYTES # (AUTO) 1.2 K/uL (2.5-16.5); LYMPHOCYTES % (AUTO) 25.5 % (20.5-51.1); MEAN CORPUSCULAR HEMOGLOBIN 25 pg (27-31); MEAN CORPUSCULAR HGB CONC 32 g/dL (33-37); MEAN CORPUSCULAR VOLUME 78.4 fL (80-94); MONOCYTES # (AUTO) 0.5 K/uL (0.8-1.0); MONOCYTES % (AUTO) 11.8 % (1.7-9.3); NEUTROPHILS # (AUTO) 2.6 K/uL (1.8-7.7); NEUTROPHILS % (AUTO) 56.6 % (42.2-75.2); PLATELET COUNT (AUTO) 238 K/uL (140-450); RED BLOOD CELL COUNT(AUTO) 4.93 MIL/uL (4.20-5.40); RED CELL DISTRIBUTION WIDTH 17.3 % (11.6-13.7); WHITE BLOOD COUNT (AUTO) 4.6 K/uL (4.8-10.8)
[2021-05-06] MEDS: INSULIN LISPRO 100 UNITS/ML VIAL SUBQ SCH ×3 (06:14→17:30)
[2021-05-06] MEDS: BLOOD GLUCOSE MONITORING 1 DEV DEV FS SCH ×3 (06:14→17:23)
[2021-05-06 06:36] LABS: ALBUMIN 3.2 g/dL (3.4-5.0); ANION GAP 11.1 (8-16); CARBON DIOXIDE 34.4 mmol/L (21-32); MAGNESIUM 1.8 mg/dL (1.8-2.4); POTASSIUM 4.5 mmol/L (3.5-5.1); TOTAL BILIRUBIN 0.6 mg/dL (0.0-1.0)
--- NOTE | 2021-05-06 07:30 | NUR ---
OPENING NOTES: PATIENT IS RESTING IN BED QUIETLY. AAOX4, ABLE TO MAKE NEEDS KNOWN, ABLE TO TURN SELF IN BED. USES A WALKER AT HOME. HOWEVER, PATIENT HAS NOT AMBULATE IN THE HOSPITAL DUE TO SOB ON EXERTION AND WEAKNESS. NO C/O DISTRESS OR PAIN AT THIS TIME. IV TO THE 2 GAUGE SL, SITE IS C/D/I. EXPLAINED POC AND PATIENT VERBALIZED UNDERSTANDING. CURRENTLY ON 2L NC 02 SAT 100%. BED IN LOW AND LOCK POSITION. CALL LIGHT WITHIN REACH. AWAITING FOR DR AMADOR FOR CONSULT TODAY. WILL CONT TO MONITOR.
[2021-05-06 08:00] VITALS: BP_SYST 134; BP_DIAS 74; BP_DIAS 75
[2021-05-06] MEDS: ASPIRIN 81 MG TAB.CHEW PO SCH (08:53)
--- NOTE | 2021-05-06 08:53 | NUR ---
NORCO 1 TAB: PATIENT C/O GENERALIZED PAIN, MOSTLY ON BLE, AND L SIDE BODY PAIN (ACHING) 10/10. HOWEVER, PATIENT IS RESTING IN BED PLAYING WITH HER PHONE, NO FACIAL GRIMACING OR MOANING. GAVE NORCO 1 TAB PO (SEE EMAR). WILL CONT TO MONITOR.
[2021-05-06] MEDS: ISOSORBIDE DINITRATE 20 MG TAB PO SCH ×3 (08:54→17:41)
[2021-05-06] MEDS: metOLazone 5 MG TAB PO SCH (08:54)
[2021-05-06] MEDS: carvediloL 6.25 MG TAB PO SCH (08:55)
[2021-05-06] MEDS: FUROSEMIDE 40 MG/4 ML VIAL IVP SCH ×2 (08:55→17:41)
[2021-05-06] MEDS: amLODIPine 5 MG TAB PO SCH (08:55)
[2021-05-06] MEDS: DOCUSATE SODIUM 100 MG GELCAP PO SCH (08:56)
[2021-05-06] MEDS ORDERED: LOSARTAN 25 MG TAB PO SCH (09:00)
[2021-05-06] MEDS: ONDANSETRON 4 MG/2 ML VIAL IVP PRN (09:02)
--- NOTE | 2021-05-06 10:50 | NUR ---
PAGED DR AMADOR: DUE TO PATIENT IS TAKING ELIQUIS 5MG PO BID, CURRENTLY ON HEPARIN 5000 U SQ. PER RX, NEEDS CLARIFICATION WHETHER THE PATIENT IS GOING TO BE ON HEPARIN AND ELIQUIS. SPOKE WITH DR AMADOR. NEW ORDER RECEIVED: DC HEPARIN, AND CONT START ON ELIQUIS 5MG PO BID.
--- NOTE | 2021-05-06 11:17 | NUR ---
dc planning: CALLED [facility] [phone] SPOKE WITH A[place] CM NOTIFIED HER PT HAS AN ORDER TO F/U WITH PRODUCT SUPPORT SPECIALIST AND RECOMMENDED FOR OUTPATIENT ELECTROPHYSIOLOGY. PER A[place] ONCE THEY RECEIVE THE ORDER WILL SCHEDULE AND CONTACT PATIENT. NOTIFIED PATIENT.
[2021-05-06 12:00] VITALS: BP 166/54
[2021-05-06 16:00] VITALS: BP 141/82
[2021-05-06] MEDS ORDERED: SPIR50TA PO (16:12)
[2021-05-06] MEDS ORDERED: LOSA25TA1 PO (16:12)
[2021-05-06 16:16] VITALS: BP 141/82
[2021-05-06] MEDS: INSULIN LISPRO SLIDING SCALE 100 UNITS/ML VIAL SUBQ PRN (17:23)
--- NOTE | 2021-05-06 17:50 | NUR ---
DC HOME: 1730: PATIENT STATED THAT ER RIDE WAS OUTSIDE (SON). PATIENT APOLOGIZED FOR BEING INCONVENIENT. SHE DID NOT KNOW THAT HER SON WAS GOING TO PICK HER UP BOB. DC INSTRUCTION GIVEN AND EXPLAINED. WELL ER PRECAUTION. PATIENT VERBALIZED UNDERSTANDING. IV REMOVED FROM THE L HAND. IV CATH INTACT WHEN REMOVED. ASKED PATIENT IF SON BROUGHT HER PORTABLE 02 TANK (HX OF COPD). PER PATIENT, HER SON FORGOT TO BRING IT. PATIENT STATES THAT SHE WILL BE OK WITHOUT THE 02 AND WILL USED IT WHEN SHE GETS HOME. PATIENT IS IN THE HURRY AND WAS TRYING TO CATCH THE PHARMACY BEFORE THEY CLOSED AT 6PM. EXPLAINED RISK AND BENEFIT. PATIENT VERBALIZED UNDERSTANDING. NO C/O SOB OR DISTRESS AT THIS TIME. PATIENT ABLE TO DRESS HERSELF AND TRANSFER WITH MINIMAL ASSIST TO THE W/C. ALL PERSONAL BELONGINGS RETURN TO PATIENT AND PATIENT DENIES MISSING ITEMS. 1749: PATIENT WHEELED OUT BY BREAKER UP MACHINE OPERATOR IN A STABLE CONDITION. NO ADDITIONAL DISTRESS NOTED. Addendum: 05/06/21 at 1816 by Agency Nurse Joseph RN RN IV SITE NO BLEEDING. COVER WITH GAUZE AND SECURE WITH TAPE.
[2021-05-06] MEDS ORDERED: APIXABAN 2.5 MG TAB PO SCH (21:00)
== END 2021-05-06 17:40 | disposition home or self-care (01) ==
LOC: MED 15:29 → INTOOBSV 18:55 → MTU 18:55
PROVIDERS: ADMIT Hospitalist; ATTEND Hospitalist
DX: R07.89 Other chest pain (principal); Z20.822 Contact with and (suspected) exposure to COVID-19; J44.9 Chronic obstructive pulmonary disease, unspecified; E11.22 Type 2 diabetes mellitus with diabetic chronic kidney disease; I13.0 Hypertensive heart and chronic kidney disease with heart failure and stage 1 through stage 4 chronic kidney disease, or unspecified chronic kidney disease; N18.30 Chronic kidney disease, stage 3 unspecified; I50.22 Chronic systolic (congestive) heart failure; I25.2 Old myocardial infarction; I48.91 Unspecified atrial fibrillation; I44.7 Left bundle-branch block, unspecified; E66.9 Obesity, unspecified; R77.8 Other specified abnormalities of plasma proteins; I25.5 Ischemic cardiomyopathy; I25.10 Atherosclerotic heart disease of native coronary artery without angina pectoris; E11.65 Type 2 diabetes mellitus with hyperglycemia; Z95.810 Presence of automatic (implantable) cardiac defibrillator; Z79.899 Other long term (current) drug therapy
CPT/HCPCS: 36415; 71045; 80053; 82948; 83735; 83880; 84484; 85025; 87081; 87426; 93005; 94760; 96372; 96374; 96375; 96376; 99285; G0378; J1644; J1815; J1940; J2270; J2405

== ENCOUNTER 2021-05-19 22:58 | Emergency (ER) | payer MEDICAID, SELFPAY ==
[~2021-05-19] VITALS: Ht 172.7 cm; Wt 119.7 kg
[~2021-05-19 22:58] MED LIST changes: -AMLO2.5T PO; -CLON0.1T42 PO; -FURO-570 PO; +LOSA25TA1 PO; -LOSA50TA1 PO; -PENI500T20 PO; -SPIR25TA PO; +SPIR50TA PO
[2021-05-19 23:42] VITALS: BP 157/105
--- NOTE | 2021-05-19 23:50 | NUR ---
PT TAKEN TO BED 1
--- NOTE | 2021-05-20 00:20 | NUR ---
assumed patient care, here for generalized weakness and chest pain. Connected to clinical nutritionist, IV line started and blood samples collected.
[2021-05-20 00:55] LABS: BASOPHILS # (AUTO) 0.1 K/uL (0.00-0.22); BASOPHILS % (AUTO) 2.4 % (0.0-2.0); EOSINOPHILS # (AUTO) 0.1 K/uL (0-0.4); EOSINOPHILS % (AUTO) 2.4 % (0.0-4.0); HEMATOCRIT 39.2 % (36-48); HEMOGLOBIN 12.7 g/dL (12.0-16.0); LYMPHOCYTES # (AUTO) 1.6 K/uL (2.5-16.5); MEAN CORPUSCULAR HEMOGLOBIN 25 pg (27-31); MEAN CORPUSCULAR HGB CONC 32 g/dL (33-37); MEAN CORPUSCULAR VOLUME 77.3 fL (80-94); MONOCYTES # (AUTO) 0.4 K/uL (0.8-1.0); NEUTROPHILS # (AUTO) 2.9 K/uL (1.8-7.7); NEUTROPHILS % (AUTO) 56.2 % (42.2-75.2); PLATELET COUNT (AUTO) 198 K/uL (140-450); RED BLOOD CELL COUNT(AUTO) 5.07 MIL/uL (4.20-5.40); RED CELL DISTRIBUTION WIDTH 17.7 % (11.6-13.7); WHITE BLOOD COUNT (AUTO) 5.2 K/uL (4.8-10.8)
[2021-05-20] MEDS: MORPHINE SULFATE 4 MG/ML SYR IVP ONE (00:57)
--- NOTE | 2021-05-20 01:20 | NUR ---
critical result received troponin 0.409, informed Dr. Horan.
[2021-05-20 01:38] LABS: ANION GAP 11.2 (8-16); CARBON DIOXIDE 30.9 mmol/L (21-32); POTASSIUM 4.1 mmol/L (3.5-5.1)
[2021-05-20 01:39] LABS: ALBUMIN 3.1 g/dL (3.4-5.0); CREATININE 1.2 mg/dL (0.6-1.3); TOTAL BILIRUBIN 0.5 mg/dL (0.0-1.0)
[2021-05-20] MEDS: INSULIN REGULAR, HUMAN 100 UNIT/ML VIAL SUBQ ONE (03:16)
[2021-05-20] MEDS: HYDROcodone/APAP 5/325 MG 1 TAB TAB PO ONE (04:08)
--- NOTE | 2021-05-20 04:45 | NUR ---
blood sugar rechecked post insulin 371mg/dl. Patient cleared for dc with Dr. Horan. Instructions reinforced and verbalized understanding. IV line discontinued, VS rechecked and stable on dc. Wheeled to lobby for family to warehouse order picker.
[2021-05-20 05:00] VITALS: BP 168/79
== END 2021-05-20 04:45 | disposition home or self-care (01) ==
LOC: MED 22:58
DX: R07.89 Other chest pain (principal); E11.65 Type 2 diabetes mellitus with hyperglycemia; E11.22 Type 2 diabetes mellitus with diabetic chronic kidney disease; I12.9 Hypertensive chronic kidney disease with stage 1 through stage 4 chronic kidney disease, or unspecified chronic kidney disease; N18.30 Chronic kidney disease, stage 3 unspecified; R53.1 Weakness; I50.9 Heart failure, unspecified; J44.9 Chronic obstructive pulmonary disease, unspecified; Z79.4 Long term (current) use of insulin; Z79.899 Other long term (current) drug therapy; Z88.5 Allergy status to narcotic agent; Z88.8 Allergy status to other drugs, medicaments and biological substances
CPT/HCPCS: 36415; 71045; 80053; 82948; 83690; 84484; 85025; 93005; 96372; 96374; 99285; J1815; J2270; Q0092

== ENCOUNTER 2021-05-25 21:43 | Inpatient (IN) | payer MEDICAID, SELFPAY ==
[~2021-05-25] VITALS: Ht 172.7 cm; Wt 118.4 kg
[2021-05-25 21:57] VITALS: BP 150/99
--- NOTE | 2021-05-25 22:02 | NUR ---
PT TAKEN TO BED 7
--- NOTE | 2021-05-25 22:08 | NUR ---
56 YO/F BIB SELF W C/O CHEST PAIN 10/10 PRESSURE/THROBBING INTERMITTENT RADIATING TO BL ARMS AND BACK X12 HOURS, + SOB, + BL LEG SWELLING, + FATIGUE. PT REPORTS CHEST PAIN WORSENS WHEN TALKING, OR MOVING. PT REPORTS SHE WAS SEEN AT [facility] X2 DAYS AGO, RECEIVED BREATHING TRT AND LEG SWELLING BEGAN SHORTLY AFTER, PT REPORTS NORMALLY AMBU W WALKER BUT UNABLE TO AMBULATE D/T THE LEG SWELLING/PAIN. PT HAS BL LEG SWELLING NO PITTING. PT TOOK NORCO W/O RELIEF OF PAIN. PT VSS, 99% O2 SAT ON RA. PT SITTING IN BED LOCKED IN LOWEST POSITION W X2 SIDERAILS UP FOR SAFETY. PT CONNECTED TO MONITOR. BREATHING EVEN AND UNLABORED. NAD NOTED, WILL CONTINUE TO MONITOR. PMH: CHF, COPD, HTN, DIABETES, STAGE 3 KIDNEY FAILURE W/O DIALYSIS ALLERGIES: IBUPROFEN, TORADOL, TRAMADOL, PREDNISONE, KETAMINE
--- NOTE | 2021-05-25 22:24 | NUR ---
Dr. Moctezuma examining patient.
[2021-05-25 22:25] LABS: BASOPHILS # (AUTO) 0.2 K/uL (0.00-0.22); BASOPHILS % (AUTO) 3.7 % (0.0-2.0); EOSINOPHILS # (AUTO) 0.2 K/uL (0-0.4); EOSINOPHILS % (AUTO) 3.7 % (0.0-4.0); HEMATOCRIT 37.5 % (36-48); HEMOGLOBIN 12.2 g/dL (12.0-16.0); LYMPHOCYTES # (AUTO) 1.5 K/uL (2.5-16.5); LYMPHOCYTES % (AUTO) 31.3 % (20.5-51.1); MEAN CORPUSCULAR HEMOGLOBIN 25 pg (27-31); MEAN CORPUSCULAR HGB CONC 33 g/dL (33-37); MEAN CORPUSCULAR VOLUME 76.6 fL (80-94); MONOCYTES # (AUTO) 0.3 K/uL (0.8-1.0); MONOCYTES % (AUTO) 5.2 % (1.7-9.3); NEUTROPHILS # (AUTO) 2.7 K/uL (1.8-7.7); NEUTROPHILS % (AUTO) 56.1 % (42.2-75.2); PLATELET COUNT (AUTO) 211 K/uL (140-450); RED CELL DISTRIBUTION WIDTH 18.1 % (11.6-13.7); WHITE BLOOD COUNT (AUTO) 4.9 K/uL (4.8-10.8)
[2021-05-25 22:43] LABS: ALBUMIN 3.1 g/dL (3.4-5.0); ANION GAP 12.4 (8-16); CREATININE 1.7 mg/dL (0.6-1.3); POTASSIUM 4.4 mmol/L (3.5-5.1); TOTAL BILIRUBIN 0.7 mg/dL (0.0-1.0)
[2021-05-25] MEDS ORDERED: NITROGLYCERIN 0.4 MG TAB SL ONE (22:45)
[2021-05-25] MEDS ORDERED: ASPIRIN 325 MG TAB PO ONE (22:45)
[2021-05-25] MEDS ORDERED: NACL 0.9% 1,000 ML IV ONE (22:55)
--- NOTE | 2021-05-25 23:30 | NUR ---
SWAB FOR MELVIN SENT TO LAB
--- NOTE | 2021-05-25 23:37 | NUR ---
NAKUL ODONNELL FROM [facility] FOR UPDATE ON PT.
--- NOTE | 2021-05-25 23:40 | NUR ---
X3 NITRO STAT ADMIN 5 MIN APART. CHEST PAIN UNRESOLVED. ERMD MADE AWARE.
[2021-05-25] MEDS ORDERED: ONDANSETRON 4 MG/2 ML VIAL IVP ONE (23:50)
[2021-05-25] MEDS ORDERED: MORPHINE SULFATE 2 MG/ML SYR IVP ONE (23:50)
--- NOTE | 2021-05-26 00:10 | NUR ---
Pt report given to BELINDA PARISI. Transfer of care at this time.
--- NOTE | 2021-05-26 00:22 | NUR ---
PT APPEARS TO BE ERESTING W EYES CLOSED IN SUOINE POSITION W HOB ELEVATED. BREATHING EVEN AND UNLABORED. NAD NOTED, WILL CONTINUE TO MONITOR.
--- NOTE | 2021-05-26 00:40 | NUR ---
Patient will be admitted to care of DR. KING. Admited to TELEMETRY. Will go to room 120B. Belongings list completed. Report to BELINDA PARISI.
[2021-05-26 00:45] VITALS: BP 142/93
--- NOTE | 2021-05-26 00:45 | NUR ---
RECEIVED PT FROM ER NURSE FOR CONTINUITY OF CARE. PT ARRIVED VIA GURNEY. AWAKE, ALERT AND ORIENTED. PT ON ROOM AIR. BREATHING EQUAL AND UNLABORED. IV ON R HAND G 22, PATENT AND INTACT.SKIN WARM, DRY AND INTACT. BILATERAL LOWER EXTREMITY EDEMA NOTED. COMPLAINS OF PAIN ON CHEST RADIATING TO BOTH ARMS AND BACK AND BLE PAIN. PT WAS GIVEN PAIN MEDICATION IN ER PRIOR ARRIVAL ON UNIT. MRSA SWAB DONE. ORIENTED TO ROOM AND CALL LIGHT. BED IN LOW LOCKED POSITION. AWAITING ORDERS FROM DR KING. CALL LIGHT WITHIN REACH. WILL CONTINUE TO MONITOR.
--- NOTE | 2021-05-26 02:30 | NUR ---
PT REQUESTED WARM BLANKETS. NO DISTRESS NOTED. WILL CONTINUE TO MONITOR.
[2021-05-26 04:00] VITALS: BP 145/91
--- NOTE | 2021-05-26 04:30 | NUR ---
PT ASLEEP. BREATHING EQUAL AND UNLABORED. NO DISTRESS NOTED. WILL CONTINUE TO MONITOR.
[2021-05-26] MEDS ORDERED: DEXTROSE 50% 50 ML SYR IVP PRN (06:35)
[2021-05-26] MEDS ORDERED: LORazepam 2 MG/ML VIAL IVP PRN (06:35)
[2021-05-26] MEDS ORDERED: NITROGLYCERIN 0.4 MG TAB SL SCH (06:35)
[2021-05-26] MEDS ORDERED: ACETAMINOPHEN 325 MG TAB PO PRN (06:35)
[2021-05-26] MEDS ORDERED: ONDANSETRON 4 MG/2 ML VIAL IVP PRN (06:35)
[2021-05-26] MEDS ORDERED: HYDROcodone/APAP 5/325 MG 1 TAB TAB PO PRN (06:35)
[2021-05-26] MEDS ORDERED: ALBUTEROL HFA MDI 90 MCG/ACTUATION 8 GM INH PRN (06:35)
[2021-05-26] MEDS ORDERED: HYDROcodone/APAP 10/325 MG 1 TAB TAB PO PRN (06:35)
--- NOTE | 2021-05-26 06:38 | NUR ---
PT IS STABLE. NO ACUTE EVENTS THROUGHOUT THE NIGHT. NO S/SX OF DISTRESS OF THE MOMENT. ALL NEEDS ATTENDED. ALL PRECAUTIONS IN PLACE. WILL ENDORSE TO AM SHIFT NURSE.
[2021-05-26] MEDS ORDERED: ALBUTEROL 0.083% 2.5 MG/3 ML NEBU INH PRN (07:05)
[2021-05-26] MEDS ORDERED: NITROGLYCERIN 0.4 MG TAB SL PRN (07:18)
--- NOTE | 2021-05-26 07:30 | NUR ---
RECEIVED REPORT FROM CHURN TENDER NURSE FOR CONTINUITY OF CARE. PT IN BED AT THIS TIME. AWAKE AND ALERT X4. ABLE TO VERBALIZE NEEDS TO STAFF. RESPIRATIONS ARE EVEN AND UNLABORED, ON ROOM AIR. NO SIGNS OF DISTRESS NOTED. PT ABD IS NON-TENDER, NONDISTENDED WITH BOWEL SOUNDS PRESENT. LAST BOWEL MOVEMENT WAS LAST NIGHT. PT ON CARDIAC DIET. PT SKIN IS WARM, DRY, AND INTACT. BILATERAL LOWER LEG EDEMA NOTED. NO COMPLAINTS OF PAIN OR DISCOMFORT. CALL LIGHT WITHIN REACH. ALL SAFETY MEASURES IN PLACE. WILL CONTINUE TO MONITOR.
[2021-05-26] MEDS: BLOOD GLUCOSE MONITORING 1 DEV DEV FS SCH ×4 (07:59→21:56)
[2021-05-26] MEDS: INSULIN LISPRO SLIDING SCALE 100 UNITS/ML VIAL SUBQ PRN ×3 (07:59→21:57)
[2021-05-26 08:00] VITALS: BP 167/89
--- NOTE | 2021-05-26 08:00 | NUR ---
Patient's Plan of Care was discussed and reviewed with AUTOMOTIVE MECHANIC: NKECHI MCKEON
[2021-05-26 08:43] LABS: ANION GAP 12.5 (8-16); CREATININE 1.6 mg/dL (0.6-1.3); POTASSIUM 4.5 mmol/L (3.5-5.1)
[2021-05-26 08:44] LABS: BASOPHILS # (AUTO) 0.1 K/uL (0.00-0.22); EOSINOPHILS # (AUTO) 0.1 K/uL (0-0.4); EOSINOPHILS % (AUTO) 3.1 % (0.0-4.0); HEMOGLOBIN 11.6 g/dL (12.0-16.0); LYMPHOCYTES # (AUTO) 1.6 K/uL (2.5-16.5); LYMPHOCYTES % (AUTO) 36.5 % (20.5-51.1); MEAN CORPUSCULAR HEMOGLOBIN 24 pg (27-31); MEAN CORPUSCULAR HGB CONC 31 g/dL (33-37); MEAN CORPUSCULAR VOLUME 77.9 fL (80-94); MONOCYTES # (AUTO) 0.4 K/uL (0.8-1.0); MONOCYTES % (AUTO) 7.9 % (1.7-9.3); NEUTROPHILS # (AUTO) 2.2 K/uL (1.8-7.7); NEUTROPHILS % (AUTO) 49.5 % (42.2-75.2); PLATELET COUNT (AUTO) 187 K/uL (140-450); RED BLOOD CELL COUNT(AUTO) 4.75 MIL/uL (4.20-5.40); RED CELL DISTRIBUTION WIDTH 17.6 % (11.6-13.7); WHITE BLOOD COUNT (AUTO) 4.4 K/uL (4.8-10.8)
[2021-05-26] MEDS ORDERED: LOSARTAN 25 MG TAB PO SCH (09:00)
[2021-05-26] MEDS ORDERED: carvediloL 6.25 MG TAB PO SCH (09:00)
[2021-05-26] MEDS ORDERED: metOLazone 5 MG TAB PO SCH (09:00)
--- NOTE | 2021-05-26 09:04 | NUR ---
LAB CALLED TO REPORT PT TROPONIN LEVEL THIS MORNING AT 0.01. MADE AWARE. WILL CONTINUE TO MONITOR. Addendum: 05/26/21 at 1008 by Swati Butt LVN TROPONIN 0.301
[2021-05-26] MEDS: APIXABAN 2.5 MG TAB PO SCH ×2 (09:14→21:52)
[2021-05-26] MEDS: SPIRONOLACTONE 50 MG TAB PO SCH (09:18)
[2021-05-26] MEDS: ASPIRIN 81 MG TAB.CHEW PO SCH (09:18)
[2021-05-26] MEDS: BUMETANIDE 1 MG TAB PO SCH ×2 (09:20→21:50)
[2021-05-26 09:30] LABS: MAGNESIUM 1.8 mg/dL (1.8-2.4); PHOSPHORUS 5.1 mg/dL (2.5-4.9)
--- NOTE | 2021-05-26 10:53 | NUR ---
DC PLANNIN YRS OLD FEMALE PATIENT WAS ADMITTED FROM HOME [facility] A DX OF CHES PAIN PATIENT HAS A HX OF CO, COPD, CHF AND [place] ONSET OF DVT. TROP 0.360, 0.301. CXR SHOWED NO SIGNIFICANT INTERVAL CHANGE CARDIOMEGALY WITH PULMONARY VASCULARE CONGESTION AND POSSIBLE INTERSTITIAL EDEMA. CONTINUE TO ADMINISTER HOME MEDS. ECHO ORDERED. CONSULTED WITH TEST DECK SUPERVISOR, AND NEPHRO. DC PLAN TO GO HOME WHEN STABLE. CALLED [facility] [phone] SPOKE WITH DARYA GARCIA UPDATED PT'S CLINICALS AND OBSERVATION STATUS, DARYA REQUESTED ALL CLINICALS TO BE FAXED TO [phone], FAXED ALL PAPERWORK. CM PROVIDE THE AUTH# [id number] FOR HOSPITAL STAY. CM TO FOLLOW Addendum: 05/26/21 at 1110 by Bhargavi Cannon RN DC PLANNING: SPOKE WITH DR FERNANDO Hsu REGARDING THE OBSERVATION , STATED IF CARDIO CLEARS AND NO SYMPTOMS PLAN TO DC TOMORROW. CM TO FOLLOW Addendum: 05/27/21 at 1628 by Bhargavi Cannon RN DC PLANNING: CONTINUE IV LASIX , AWAITING FOR ECHO RESULT , NOTIFIED PROSPECT CM INPT STATUS,FAXED CLINICALS TO [phone] DC PLAN TO GO HOME WHEN STABLE CM TO FOLLOW
[2021-05-26] MEDS ORDERED: CLONIDINE HYDROCHLORIDE 0.1 MG TAB PO PRN (11:35)
[2021-05-26 12:00] VITALS: BP 131/97
--- NOTE | 2021-05-26 12:00 | NUR ---
PT BLOOD GLUCOSE WAS 252. COVERED WITH 6 UNITS INSULIN PER SLIDING SCALE. WILL CONTINUE TO MONITOR.
[2021-05-26 15:17] LABS: APPEARANCE,URINE CLEAR (CLEAR); BILIRUBIN,URINE NEGATIVE (NEGATIVE); BLOOD, URINE TRACE-I (NEGATIVE); LEUKOCYTE ESTERASE ,URINE NEGATIVE (NEGATIVE); NITRITE, URINE NEGATIVE (NEGATIVE); PH,URINE 5.5 (5.0-9.0); UGLUCOSE NEGATIVE (NEGATIVE)
[2021-05-26 15:20] LABS: COLOR,URINE STRAW (YELLOW)
--- NOTE | 2021-05-26 15:30 | NUR ---
ASSISTED PT TO BED SIDE COMMODE. PT TOLERATED WELL. WILL CONTINUE TO MONITOR.
[2021-05-26 15:35] LABS: RBC,URINE 0-5 /HPF (0-5); WBC,URINE NONE SEEN /HPF (0-5)
[2021-05-26 16:00] VITALS: BP 121/75
--- NOTE | 2021-05-26 16:16 | NUR ---
PATIENT HAS BEEN SCREENED AND CATEGORIZED MODERATE NUTRITION RISK. PATIENT WILL BE SEEN WITHIN 3-[address]. [address]
--- NOTE | 2021-05-26 17:09 | NUR ---
PT CALLED AND STATED IF SHE CAN PLACE HER LUNCH AND DINNER ORDER FOR TOMORROW. INFORMED PT THAT I WILL ASK DIETARY FOR MENU FOR TOMORROW AND SHE CAN WRITE DOWN WHAT SHE WOULD LIKE. PT AGREED. WILL CONTINUE TO MONITOR.
--- NOTE | 2021-05-26 19:25 | NUR ---
ENDORSED PT TO PASTE WORKER NURSE FOR CONTINUITY OF CARE. PT IN BED RESTING AT THIS TIME. RESPIRATIONS ARE EVEN AND UNLABORED. NO SIGNS OF DISTRESS NOTED. ALL NEEDS MET THROUGHOUT SHIFT. PT IS STABLE.
[2021-05-26 20:00] VITALS: BP 119/84
--- NOTE | 2021-05-26 20:12 | NUR ---
RECEIVED BEDSIDE REPORT FROM DAY SHIFT RN FOR CONTINUITY OF CARE. PT IS AWAKE ON RA. FOOD BY BEDSIDE. PT IS NOT IN ANY DISTRESS. PT HAS RIGHT HAND 22 GAUGE SALINE LOCK. CALL LIGHT WITHIN REACH. ALL SAFETY MEASURES TAKEN. WILL CONTINUE TO MONITOR THE PT.
[2021-05-26] MEDS: ATORVASTATIN 20 MG TAB PO SCH (21:50)
[2021-05-26] MEDS: carvediloL 12.5 MG TAB PO SCH (21:56)
[2021-05-26] MEDS: INSULIN LANTUS 100 UNITS/ML 10 ML VIAL SUBQ SCH (21:57)
--- NOTE | 2021-05-26 22:00 | NUR ---
ALL DUE MEDS GIVEN. NO ADVERSE REACTION NOTED. WILL CONTINUE TO MONITOR THE PT. PT COMPLAIN OF LEG PAIN 01/03. CALLED DR. KING. ORDERED MORPHINE 1MG IVP PRN Q6H. NO OTHER COMPLAINS. ALL SAFETY MEASURES TAKEN. WILL CONTINUE TO MONITOR THE PT.
[2021-05-27] VITALS: BP 127/83
--- NOTE | 2021-05-27 00:30 | NUR ---
PT IS SLEEPING IN BED COMFORTABLY. PT IS NOT IN ANY DISTRESS. BREATHING RHYTHMIC AND UNLABORED. PT IS ON RA. CALL LIGHT WITHIN REACH. ALL SAFETY MEASURES TAKEN. WILL CONTINUE TO MONITOR THE PT.
[2021-05-27] MEDS: MORPHINE SULFATE 2 MG/ML SYR IVP PRN ×2 (01:12→21:12)
--- NOTE | 2021-05-27 03:20 | NUR ---
ASSUMED PT CARE FROM BELINDA BRADEN. PT ASLEEP AND IN STABLE CONDITION. NO DISTRESS NOTED. WILL CONTINUE TO MONITOR.
--- NOTE | 2021-05-27 03:29 | NUR ---
ENDORSE PT TO PRODUCT TESTER BELINDA PAIRSI. PT IS STABLE.
[2021-05-27 04:00] VITALS: BP 115/84
[2021-05-27] MEDS: BLOOD GLUCOSE MONITORING 1 DEV DEV FS SCH ×4 (07:01→21:30)
--- NOTE | 2021-05-27 07:37 | NUR ---
ENDORSED TO AM SHIFT NURSE FOR CONTINUITY OF CARE. PT IS STABLE.
--- NOTE | 2021-05-27 07:38 | NUR ---
RECEIVED REPORT FROM CANCER GENETICS ASSISTANT NURSE FOR CONTINUITY OF CARE. PT IN BED RESTING AT THIS TIME. RESPIRATIONS ARE EVEN AND UNLABORED, ON ROOM AIR. NO SIGNS OF DISTRESS NOTED. PT IS ALERT AND ORIENTED X4. ABLE TO MAKE NEEDS KNOWN. ABD IS NONTENDER, NONDISTENDED, WITH BOWEL SOUNDS PRESENT. PT IS ON CARDIAC DIET. PT SKIN IS WARM, DRY, AND INTACT. PT HAS IV TO R HAND, 22G. SALINE LOCKED. CALL LIGHT WITHIN REACH. ALL SAFETY MEASURES IN PLACE. WILL CONTINUE TO MONITOR.
[2021-05-27 07:40] LABS: ANION GAP 11.9 (8-16); CARBON DIOXIDE 30.3 mmol/L (21-32); CREATININE 1.9 mg/dL (0.6-1.3); POTASSIUM 4.2 mmol/L (3.5-5.1)
[2021-05-27 07:45] LABS: MAGNESIUM 1.6 mg/dL (1.8-2.4); PHOSPHORUS 5.8 mg/dL (2.5-4.9)
--- NOTE | 2021-05-27 07:45 | NUR ---
LAB CALLED TO REPORT TROPONIN 0.247, DR KING MADE AWARE. AWAITING REPLY. WILL CONTINUE TO MONITOR.
[2021-05-27 07:53] LABS: BASOPHILS # (AUTO) 0.1 K/uL (0.00-0.22); BASOPHILS % (AUTO) 1.7 % (0.0-2.0); EOSINOPHILS # (AUTO) 0.2 K/uL (0-0.4); EOSINOPHILS % (AUTO) 3.5 % (0.0-4.0); HEMATOCRIT 36.3 % (36-48); HEMOGLOBIN 11.4 g/dL (12.0-16.0); LYMPHOCYTES # (AUTO) 1.4 K/uL (2.5-16.5); MEAN CORPUSCULAR HEMOGLOBIN 25 pg (27-31); MEAN CORPUSCULAR HGB CONC 32 g/dL (33-37); MEAN CORPUSCULAR VOLUME 77.7 fL (80-94); MONOCYTES # (AUTO) 0.4 K/uL (0.8-1.0); MONOCYTES % (AUTO) 7.8 % (1.7-9.3); NEUTROPHILS # (AUTO) 2.8 K/uL (1.8-7.7); PLATELET COUNT (AUTO) 208 K/uL (140-450); RED BLOOD CELL COUNT(AUTO) 4.67 MIL/uL (4.20-5.40); RED CELL DISTRIBUTION WIDTH 18.1 % (11.6-13.7); WHITE BLOOD COUNT (AUTO) 4.9 K/uL (4.8-10.8)
[2021-05-27 08:00] VITALS: BP 116/90
[2021-05-27] MEDS ORDERED: MAG SULF 2000 MG/WATER PREMIX 50 ML IV SCH (09:00)
[2021-05-27] MEDS: APIXABAN 2.5 MG TAB PO SCH ×2 (09:04→21:38)
[2021-05-27] MEDS: carvediloL 12.5 MG TAB PO SCH ×2 (09:06→23:00)
[2021-05-27] MEDS: ASPIRIN 81 MG TAB.CHEW PO SCH (09:10)
[2021-05-27] MEDS: BUMETANIDE 1 MG TAB PO SCH (09:10)
--- NOTE | 2021-05-27 09:10 | NUR ---
ADMINISTERED ALL SCHEDULED MEDICATIONS. EDUCATED PT REGARDING MEDS ADMINISTERED. PT VERBALIZED UNDERSTANDING. WILL CONTINUE TO MONITOR.
[2021-05-27] MEDS: SPIRONOLACTONE 50 MG TAB PO SCH (09:11)
[2021-05-27 09:18] LABS: CREATINE KINASE MB 0.6 ng/mL (0-3.6)
[2021-05-27] MEDS ORDERED: MAG SULF 2000 MG/WATER PREMIX 50 ML IV ONE (09:30)
[2021-05-27] MEDS ORDERED: FUROSEMIDE 40 MG/4 ML VIAL IVP SCH (10:00)
[2021-05-27] MEDS: INSULIN LISPRO SLIDING SCALE 100 UNITS/ML VIAL SUBQ PRN ×2 (11:39→17:27)
--- NOTE | 2021-05-27 11:41 | NUR ---
PT BLOOD GLUCOSE WAS 175. COVERED WITH 2 UNITS INSULIN PER SLIDING SCALE. WILL CONTINUE TO MONITOR.
[2021-05-27 12:00] VITALS: BP 121/96
--- NOTE | 2021-05-27 14:21 | NUR ---
DID ROUNDS ON PT. PT IN BED SLEEPING AT THIS TIME. RESPIRATIONS ARE EVEN AND UNLABORED ON ROOM AIR. NO SIGNS OF DISTRESS NOTED. NO SIGNS OF PAIN OR DISCOMFORT NOTED. CALL LIGHT WITHIN REACH. ALL SAFETY MEASURES IN PLACE. WILL CONTINUE TO MONITOR.
[2021-05-27 16:00] VITALS: BP 118/78
--- NOTE | 2021-05-27 16:02 | NUR ---
PT PRESSED CALL LIGHT AND STATED THAT SHE WANTED TO ORDER SOMETHING FROM [employer] FOR DINNER, BECAUSE SHE DOES NOT "EAT ANY OF THE FOOD HERE". PT STATED SHE WANTED A GRILLED HAM AND CHEESE SANDWICH WITH KHALIL, SOME MASHED POTATOES, SODA, AND ICE CREAM. REMINDED PT THAT SHE IS ON [facility] DIET. ASSISTED PT TO MAKE BETTER DIETARY CHOICES. PT AGREED TO ORDER A SALAD WITH A TURKEY SANDWICH. WILL CONTINUE TO MONITOR.
[2021-05-27] MEDS: FUROSEMIDE 40 MG/4 ML VIAL IVP SCH (17:26)
--- NOTE | 2021-05-27 17:27 | NUR ---
PT BLOOD GLUCOSE WAS 166. COVERED WITH 2 UNITS INSULIN PER SLIDING SCALE. WILL CONTINUE TO MONITOR.
--- NOTE | 2021-05-27 19:22 | NUR ---
ENDORSED PT TO BARREL AND RECEIVER ALIGNER NURSE FOR CONTINUITY OF CARE. PT IS AWAKE AND ALERT, RESPIRATIONS ARE EVEN AND UNLABORED. NO SIGNS OF DISTRESS NOTED. ALL NEEDS MET THROUGHOUT SHIFT. PT IS STABLE.
--- NOTE | 2021-05-27 19:22 | NUR ---
RECEIVED PT AAO4X4 , NID - O2 SAT WNL , SHE TALKING OVER THE PHONE - NO COMPLAIN OF PAIN AT THIS TIME , BEDSIDE COMMODE AT BEDSIDE , CALL LIGHT WITHIN REACH . ON TELE MONITOR , ON FALL RISK PREVENTION PROTOCOL - REMINDS HER TO USE THE CALL LIGHT WHENEVER SHE NEEDED HELP . ON TELE MONITOR , WILL CONT. TO MONITOR . Addendum: 05/27/21 at 1946 by Lizeth Barnhart RN THE WORD [id number] IN THE ABOVE NURSE'S NOTE IS AN ERROR ENTRY , INSTEAD OF AAOX4 - ENDY
[2021-05-27 20:00] VITALS: BP 151/93
[2021-05-27] MEDS: INSULIN LANTUS 100 UNITS/ML 10 ML VIAL SUBQ SCH (21:00)
--- NOTE | 2021-05-27 21:00 | NUR ---
C/O OF MUSCLE PAIN ON THE BACK NON RADIATING SHE DESCRIBE - ON TELE MONITOR - SR - WILL MEDICATE .
--- NOTE | 2021-05-27 21:12 | NUR ---
MORPHINE 1MG TIV PUSH GIVEN ORDERED - O2 SAT WNL . WILL CONT. TO MONITOR , CALL LIGHT WITHIN REACH .
[2021-05-27] MEDS: ATORVASTATIN 20 MG TAB PO SCH (21:31)
[2021-05-28] VITALS: BP 98/61
--- NOTE | 2021-05-28 | NUR ---
RESTING ON BED , EATING SANDWICH , CALL LIGHT WITHIN REACH . WILL CONT. TO MONITOR .
--- NOTE | 2021-05-28 02:01 | NUR ---
SLEEPING , CHEST RISE AND FALL EQUALLY . ON TELE MONITOR , CALL LIGHT WITHIN REACH . WILL CONT. TO MONITOR .
[2021-05-28] MEDS: MORPHINE SULFATE 2 MG/ML SYR IVP PRN (03:46)
[2021-05-28 04:00] VITALS: BP 133/62
[2021-05-28 05:48] LABS: ANION GAP 11.6 (8-16); BASOPHILS # (AUTO) 0.1 K/uL (0.00-0.22); CARBON DIOXIDE 34.4 mmol/L (21-32); CREATININE 1.7 mg/dL (0.6-1.3); EOSINOPHILS # (AUTO) 0.2 K/uL (0-0.4); EOSINOPHILS % (AUTO) 4.4 % (0.0-4.0); HEMATOCRIT 37.4 % (36-48); HEMOGLOBIN 11.7 g/dL (12.0-16.0); LYMPHOCYTES # (AUTO) 1.6 K/uL (2.5-16.5); LYMPHOCYTES % (AUTO) 36.3 % (20.5-51.1); MEAN CORPUSCULAR HEMOGLOBIN 24 pg (27-31); MEAN CORPUSCULAR HGB CONC 31 g/dL (33-37); MEAN CORPUSCULAR VOLUME 77.7 fL (80-94); MONOCYTES # (AUTO) 0.4 K/uL (0.8-1.0); MONOCYTES % (AUTO) 9.4 % (1.7-9.3); NEUTROPHILS # (AUTO) 2.1 K/uL (1.8-7.7); NEUTROPHILS % (AUTO) 47.9 % (42.2-75.2); PLATELET COUNT (AUTO) 203 K/uL (140-450); RED BLOOD CELL COUNT(AUTO) 4.82 MIL/uL (4.20-5.40); RED CELL DISTRIBUTION WIDTH 17.6 % (11.6-13.7); WHITE BLOOD COUNT (AUTO) 4.5 K/uL (4.8-10.8)
[2021-05-28 06:03] LABS: MAGNESIUM 1.8 mg/dL (1.8-2.4); PHOSPHORUS 5.4 mg/dL (2.5-4.9)
[2021-05-28] MEDS: INSULIN LISPRO SLIDING SCALE 100 UNITS/ML VIAL SUBQ PRN ×2 (06:59→12:05)
[2021-05-28] MEDS: BLOOD GLUCOSE MONITORING 1 DEV DEV FS SCH ×2 (07:34→12:00)
--- NOTE | 2021-05-28 07:44 | NUR ---
RECEIVED REPORT FROM AUTOMOTIVE MECHANIC NURSE. PT STABLE
--- NOTE | 2021-05-28 07:44 | NUR ---
ENDORSED - PT - STABLE , AWAKE .
[2021-05-28 08:00] VITALS: BP 148/91
[2021-05-28] MEDS: SPIRONOLACTONE 50 MG TAB PO SCH (08:45)
[2021-05-28] MEDS: ASPIRIN 81 MG TAB.CHEW PO SCH (08:45)
[2021-05-28] MEDS: carvediloL 12.5 MG TAB PO SCH (08:45)
[2021-05-28] MEDS: FUROSEMIDE 40 MG/4 ML VIAL IVP SCH (08:46)
[2021-05-28] MEDS: APIXABAN 2.5 MG TAB PO SCH (08:50)
--- NOTE | 2021-05-28 10:37 | NUR ---
PT DID NOT LIKE BREAKFAST FOODS PROVIDE, PT REQUEST AND WAS PROVIDED WITH A GRILLED CHEESE SANDWICH. CALL LIGHT IN REACH. ALL SAFETY MEASURES IN PLACE
[2021-05-28] MEDS ORDERED: CLON0.1T16 PO (11:52)
[2021-05-28] MEDS ORDERED: CARV12.52 PO (11:52)
[2021-05-28 12:00] VITALS: BP 121/75
--- NOTE | 2021-05-28 14:03 | NUR ---
pt discharged home with family. Personal belongings in possession. IV REMOVED, CANULA INTACT. ID BANDS REMOVED. PT STABLE. ALL SAFETY MEASURES IN PLACE
[2021-05-28] MEDS ORDERED: BUMETANIDE 1 MG TAB PO SCH (21:00)
== END 2021-05-28 13:40 | disposition home or self-care (01) | DRG 194 ==
LOC: MED 21:43 → MTU 23:44 → OBSVTOIN 05-27 09:23
PROVIDERS: ADMIT Preventive Medicine Preventive Medicine/Occupational Environmental Medicine; ATTEND Preventive Medicine Preventive Medicine/Occupational Environmental Medicine
DX: I13.0 Hypertensive heart and chronic kidney disease with heart failure and stage 1 through stage 4 chronic kidney disease, or unspecified chronic kidney disease (principal); N17.9 Acute kidney failure, unspecified; J96.10 Chronic respiratory failure, unspecified whether with hypoxia or hypercapnia; I24.8 Other forms of acute ischemic heart disease; E83.39 Other disorders of phosphorus metabolism; E88.09 Other disorders of plasma-protein metabolism, not elsewhere classified; E11.22 Type 2 diabetes mellitus with diabetic chronic kidney disease; D64.9 Anemia, unspecified; D72.819 Decreased white blood cell count, unspecified; I25.10 Atherosclerotic heart disease of native coronary artery without angina pectoris; I50.43 Acute on chronic combined systolic (congestive) and diastolic (congestive) heart failure; I25.5 Ischemic cardiomyopathy; E11.65 Type 2 diabetes mellitus with hyperglycemia; E78.5 Hyperlipidemia, unspecified; I34.0 Nonrheumatic mitral (valve) insufficiency; J44.9 Chronic obstructive pulmonary disease, unspecified; E83.42 Hypomagnesemia; N18.30 Chronic kidney disease, stage 3 unspecified; E01.0 Iodine-deficiency related diffuse (endemic) goiter; G89.4 Chronic pain syndrome; I44.7 Left bundle-branch block, unspecified; K76.0 Fatty (change of) liver, not elsewhere classified; E66.01 Morbid (severe) obesity due to excess calories; I16.0 Hypertensive urgency; Z20.822 Contact with and (suspected) exposure to COVID-19; I48.91 Unspecified atrial fibrillation; Z86.74 Personal history of sudden cardiac arrest; Z95.810 Presence of automatic (implantable) cardiac defibrillator; Z88.8 Allergy status to other drugs, medicaments and biological substances; Z88.6 Allergy status to analgesic agent; Z79.899 Other long term (current) drug therapy; Z79.82 Long term (current) use of aspirin; I25.2 Old myocardial infarction; Z86.718 Personal history of other venous thrombosis and embolism; Z99.81 Dependence on supplemental oxygen; Z82.5 Family history of asthma and other chronic lower respiratory diseases; Z82.3 Family history of stroke; Z83.3 Family history of diabetes mellitus; Z68.41 Body mass index [BMI] 40.0-44.9, adult; Z87.440 Personal history of urinary (tract) infections
CPT/HCPCS: 96361; 96374; 96375; 99285; G0378; 36415; 71045; 76770; 80048; 80053; 81001; 82550; 82553; 82948; 83735; 83880; 84100; 84484; 85025; 87081; 93005; 93970; 94640; J1815; J1940; J2270; J2405; J3475; J7613; Q0092

== ENCOUNTER 2021-07-17 05:53 | Observation (INO) | payer MEDICAID ==
[~2021-07-17] VITALS: Ht 172.7 cm; Wt 117.0 kg
[~2021-07-17 05:53] MED LIST changes: +CARV12.52 PO; -CARV6.25 PO; +CLON0.1T16 PO; -LOSA25TA1 PO; -METO5TAB9 PO
[2021-07-17 05:56] VITALS: BP 161/112
--- NOTE | 2021-07-17 06:01 | NUR ---
Wheel chair to bed 7.
[2021-07-17] MEDS ORDERED: MORPHINE SULFATE 4 MG/ML SYR IVP ONE (06:10)
[2021-07-17] MEDS ORDERED: ASPIRIN 325 MG TAB PO ONE (06:10)
[2021-07-17] MEDS ORDERED: INSULIN REGULAR, HUMAN 100 UNIT/ML VIAL IVP ONE (06:15)
--- NOTE | 2021-07-17 06:17 | NUR ---
56 Y/O FEMALE BIBS, C/O CP, SOB, AND BILATERAL LEG PAIN. PATIENT PRESENTS TO ED WITH HYPERGLYCEMIA, HTN, PAIN, NO PEDAL EDEMA, AND SPEAKING IN FULL SENTENCES. PT STATES SHE WAS SEEN 3 DAYS AGO AT [facility] FOR SAME AND THAT THE PAIN FEELS LIKE PRESSURE ON HER CHEST. CONFIRMS N/V/D; SKIN IS PINK/WARM/DRY; AAOX4 WITH EVEN AND STEADY GAIT; LUNGS CLEAR BL; PATIENT STATES PAIN OF 10/10 AT THIS TIME THAT RADIATES TO HER SHOULDERS AND ARMS; VSS; PATIENT POSITIONED FOR COMFORT; HOB ELEVATED; BEDRAILS UP X2; BED DOWN. ER MD MADE AWARE OF PT STATUS. HX: CHF, COPD, DM, HTN, KIDNEY FAILURE STAGE 3 MEDS: CARVEDILOL, INSULIN, NORCO, NORVASC...
--- NOTE | 2021-07-17 06:40 | NUR ---
lab at bedside.
--- NOTE | 2021-07-17 06:41 | NUR ---
BRAZER INDUCTION AT BEDSIDE
[2021-07-17] MEDS ORDERED: FUROSEMIDE 40 MG/4 ML VIAL IVP ONE (06:55)
--- NOTE | 2021-07-17 06:58 | NUR ---
APRIL/MELVIN SWABBED AND WALKED TO LAB
[2021-07-17 07:11] LABS: BASOPHILS # (AUTO) 0.1 K/uL (0.00-0.22); BASOPHILS % (AUTO) 1.9 % (0.0-2.0); EOSINOPHILS # (AUTO) 0.2 K/uL (0-0.4); EOSINOPHILS % (AUTO) 4.1 % (0.0-4.0); HEMOGLOBIN 12.2 g/dL (12.0-16.0); LYMPHOCYTES # (AUTO) 1.5 K/uL (2.5-16.5); LYMPHOCYTES % (AUTO) 31.9 % (20.5-51.1); MEAN CORPUSCULAR HEMOGLOBIN 24 pg (27-31); MEAN CORPUSCULAR HGB CONC 32 g/dL (33-37); MEAN CORPUSCULAR VOLUME 75.8 fL (80-94); MONOCYTES # (AUTO) 0.3 K/uL (0.8-1.0); MONOCYTES % (AUTO) 6.4 % (1.7-9.3); NEUTROPHILS # (AUTO) 2.7 K/uL (1.8-7.7); NEUTROPHILS % (AUTO) 55.7 % (42.2-75.2); PLATELET COUNT (AUTO) 183 K/uL (140-450); RED BLOOD CELL COUNT(AUTO) 5.02 MIL/uL (4.20-5.40); RED CELL DISTRIBUTION WIDTH 18.9 % (11.6-13.7); WHITE BLOOD COUNT (AUTO) 4.9 K/uL (4.8-10.8)
--- NOTE | 2021-07-17 07:16 | NUR ---
Pt report given to BELINDA LAMBERT. Transfer of care at this time.
--- NOTE | 2021-07-17 07:16 | NUR ---
Report and continuation of care received from BELINDA Argueta.
[2021-07-17 07:22] LABS: ALBUMIN 2.9 g/dL (3.4-5.0); CARBON DIOXIDE 29.2 mmol/L (21-32); CREATININE 1.2 mg/dL (0.6-1.3); POTASSIUM 4.2 mmol/L (3.5-5.1); TOTAL BILIRUBIN 0.4 mg/dL (0.0-1.0)
--- NOTE | 2021-07-17 07:30 | NUR ---
Purewick in place. Chucks and diaper applied. All pt needs met. SpO2 100% on 2L via N/C. HOB elevated. No complaints of SOB at this time. Pt states generalized body pain 11/03.
--- NOTE | 2021-07-17 07:35 | NUR ---
24G R Hand flushed with NS. IV patent; no coolness, infiltration noted.
[2021-07-17 07:39] LABS: MAGNESIUM 1.7 mg/dL (1.8-2.4); PHOSPHORUS 4.2 mg/dL (2.5-4.9)
--- NOTE | 2021-07-17 07:40 | NUR ---
Note winston in EDM - 07/17/21 at 0750 by WALTERMD PT STATES PAIN IS NOW 5/10 FROM 11/03, DULL IN THE RIGHT FLANK RADIATING TO THE BACK WHEN THEY MOVE.
--- NOTE | 2021-07-17 07:49 | NUR ---
BP 166/123; Dr. Tyler made aware.
--- NOTE | 2021-07-17 08:30 | NUR ---
RECEIVED PT IN [facility] AOX4. PLAN TO ADMIT FOR CHF EXACERBATION. DENIES PAIN AT THIS TIME. IV SL. WEBSTER. SAFETY MAINTAINED
[2021-07-17] MEDS ORDERED: ONDANSETRON 4 MG/2 ML VIAL IVP PRN (09:10)
[2021-07-17] MEDS ORDERED: HYDROcodone/APAP 5/325 MG 1 TAB TAB PO PRN ×2 (09:10→09:15)
[2021-07-17] MEDS ORDERED: LORazepam 2 MG/ML VIAL IVP PRN (09:10)
[2021-07-17] MEDS ORDERED: DEXTROSE 50% 50 ML SYR IVP PRN (09:10)
[2021-07-17] MEDS ORDERED: ALBUTEROL HFA MDI 90 MCG/ACTUATION 8 GM INH PRN (09:15)
[2021-07-17] MEDS ORDERED: CLONIDINE HYDROCHLORIDE 0.1 MG TAB PO PRN (09:15)
[2021-07-17] MEDS ORDERED: NITROGLYCERIN 0.4 MG TAB SL PRN (09:15)
[2021-07-17 09:45] VITALS: BP 150/103
--- NOTE | 2021-07-17 09:45 | NUR ---
RECEIVED PATIENT FROM ER NURSE. PT TRANSPORTED BY [facility]. PT ADMITTED FOR CHF. PT IS AOX4, ABLE TO MAKE NEEDS KNOWN. RESPIRATIONS EVEN AND UNLABORED. ON ROOM AIR AND S/S OF RESPIRATORY DISTRESS NOTED. SKIN IS WARM, DRY, AND INTACT. PITTING EDEMA +2 BILATERAL UPPER AND LOWER EXTREMITIES. IV SITE ON RH 24G AND LH 20G. SALINE LOCKED, INTACT, AND PATENT. ABD IS SOFT, FLAT, AND NON-DISTENDED. BOWEL SOUNDS ACTIVE IN ALL QUADRANTS. CC OF CHEST PAIN 10/10 PAIN THAT RADIATES TO SHOULDER AND BACK. WILL MEDICATE WITH PRN PAIN MEDS PER MD ORDERED. PLAN OF CARE DISCUSSED. SAFETY PRECAUTIONS IN PLACE. CALL LIGHT WITHIN REACH. WILL CONTINUE TO MONITOR.
[2021-07-17 10:31] LABS: CREATINE KINASE MB 1.2 ng/mL (0-3.6)
[2021-07-17] MEDS ORDERED: KETOROLAC 30 MG/ML VIAL IVP PRN (11:10)
[2021-07-17] MEDS: BLOOD GLUCOSE MONITORING 1 DEV DEV FS SCH ×3 (11:26→20:24)
[2021-07-17] MEDS ORDERED: ALBUTEROL 0.083% 2.5 MG/3 ML NEBU INH PRN (11:40)
[2021-07-17] MEDS: INSULIN LISPRO SLIDING SCALE 100 UNITS/ML VIAL SUBQ PRN ×2 (11:53→16:47)
--- NOTE | 2021-07-17 11:53 | NUR ---
PT CC OF CHEST PAIN 10/10 RADIATES SHOULDER AND BACK. ADMINISTERED PRN PAIN MEDS PER MD ORDERED.
[2021-07-17 12:00] VITALS: BP 167/107
[2021-07-17] MEDS: lisinopriL 5 MG TAB PO SCH (12:55)
--- NOTE | 2021-07-17 15:22 | NUR ---
CHECKED ON PATIENT. PATIENT IS STABLE. NO DISTRESS NOTED. WILL CONTINUE TO MONITOR.
[2021-07-17 16:00] VITALS: BP 156/100
[2021-07-17] MEDS: BUMETANIDE 1 MG/4 ML VIAL IV SCH (16:37)
[2021-07-17] MEDS: MORPHINE SULFATE 2 MG/ML SYR IVP PRN ×2 (16:44→23:51)
[2021-07-17] MEDS: ACETAMINOPHEN 325 MG TAB PO PRN (18:33)
--- NOTE | 2021-07-17 18:33 | NUR ---
PATIENT COMPLAINED OF TOOTH PAIN 3/10 PAIN. ADMINISTERED PRN PAIN MEDS PER MD ORDERED.
--- NOTE | 2021-07-17 19:27 | NUR ---
ENDORSED TO SANDER PORTABLE MACHINE NURSE FOR CONTINUITY OF CARE. PT IS STABLE.
--- NOTE | 2021-07-17 19:30 | NUR ---
RECEIVED PATIENT FROM DAY NURSE FOR CONTINUITY OF CARE. PT IS AOX4,RESPIRATIONS EVEN AND UNLABORED. ON O2 2L VIA NC, NO S/SX OF RESPIRATORY DISTRESS NOTED. SKIN IS WARM, DRY, AND INTACT.EDEMA ON BILATERAL UPPER AND LOWER EXTREMITIES. IV SITE ON RH 24G AND LH 20G. SALINE LOCKED, INTACT, AND PATENT. ALL SAFETY PRECAUTIONS IN PLACE. CALL LIGHT WITHIN REACH. WILL CONTINUE TO MONITOR.
--- NOTE | 2021-07-17 19:50 | NUR ---
PT LAYING IN BED IN SUPINE POSITION, HOB ELEVATED, NO SIGNS OF RESPIRATORY DISTRESS NOTED AT THIS TIME PT IS CURRENTLY SATING 99% ON 2L N/C, NORMAL RR, NO USE OF ACCESSORY MUSCLES NOTED. ANTERIOR AUSCULTATIONS REVEALED CLEAR BS THROUGHOUT ALL LUNG SHELL, STRONG NON PRODUCTIVE COUGH NOTED, WILL CONTINUE TO MONITOR.
[2021-07-17 20:00] VITALS: BP 155/95
[2021-07-17] MEDS: APIXABAN 2.5 MG TAB PO SCH (20:15)
[2021-07-17] MEDS: carvediloL 12.5 MG TAB PO SCH (20:24)
[2021-07-17] MEDS ORDERED: ATORVASTATIN 20 MG TAB PO SCH (21:00)
[2021-07-17] MEDS ORDERED: FUROSEMIDE 40 MG/4 ML VIAL IVP SCH (21:00)
[2021-07-17] MEDS ORDERED: INSULIN LANTUS 100 UNITS/ML 10 ML VIAL SUBQ SCH (21:00)
--- NOTE | 2021-07-17 21:00 | NUR ---
DUE MEDICATIONS GIVEN. BLOOD SUGAR WAS 150, NO INSULIN COVERAGE NEEDED.PT TOLERATED WELL. CALL LIGHT WITHIN REACH. WILL CONTINUE TO MONITOR.
--- NOTE | 2021-07-17 23:53 | NUR ---
PT COMPLAINED OF 10/10 HEADACHE AND PAIN ON THE BACK.PRN PAIN MEDICATION GIVEN. BP 135/81. WILL CONTINUE TO MONITOR.
[2021-07-18] VITALS: BP 131/85
--- NOTE | 2021-07-18 02:15 | NUR ---
PT ASLEEP. NO S/SX OF DISTRESS NOTED. BREATHING EQUAL AND UNLABORED. ALL PRECAUTIONS IN PLACE.CALL LIGHT WITHIN REACH. WILL CONTINUE TO MONITOR.
[2021-07-18 04:00] VITALS: BP 131/83
[2021-07-18] MEDS: MORPHINE SULFATE 2 MG/ML SYR IVP PRN ×2 (06:46→12:39)
[2021-07-18] MEDS: INSULIN LISPRO SLIDING SCALE 100 UNITS/ML VIAL SUBQ PRN ×2 (06:58→12:20)
[2021-07-18] MEDS: BLOOD GLUCOSE MONITORING 1 DEV DEV FS SCH ×3 (06:59→16:30)
--- NOTE | 2021-07-18 07:00 | NUR ---
BLOOD SUGAR WAS 189.2 UNITS OF INSULIN GIVEN PER PROTOCOL. PT CLEANED. ALL NEEDS ATTENDED. WILL CONTINUE TO MONITOR.
--- NOTE | 2021-07-18 07:01 | NUR ---
PT IS STABLE. NO ACUTE EVENTS THROUGHOUT THE NIGHT. ALL NEEDS ATTENDED. NO S/SX OF DISTRESS NOTED. BREATHING EQUAL AND UNLABORED. ALL PRECAUTIONS IN PLACE. CALL LIGHT WITHIN REACH. WILL ENDORSE TO AM SHIFT NURSE.
[2021-07-18 08:00] VITALS: BP 136/74
[2021-07-18] MEDS ORDERED: ASPIRIN 81 MG TAB.CHEW PO SCH (09:00)
[2021-07-18] MEDS ORDERED: SPIRONOLACTONE 25 MG TAB PO SCH (09:00)
[2021-07-18] MEDS: APIXABAN 2.5 MG TAB PO SCH (09:00)
[2021-07-18] MEDS: carvediloL 12.5 MG TAB PO SCH (09:23)
[2021-07-18] MEDS: lisinopriL 5 MG TAB PO SCH (09:23)
[2021-07-18] MEDS: BUMETANIDE 1 MG/4 ML VIAL IV SCH ×2 (09:25→17:00)
[2021-07-18 09:31] LABS: BASOPHILS % (AUTO) 0.9 % (0.0-2.0); EOSINOPHILS # (AUTO) 0.2 K/uL (0-0.4); EOSINOPHILS % (AUTO) 4.6 % (0.0-4.0); HEMATOCRIT 37.8 % (36-48); HEMOGLOBIN 11.9 g/dL (12.0-16.0); LYMPHOCYTES # (AUTO) 1.1 K/uL (2.5-16.5); LYMPHOCYTES % (AUTO) 20.3 % (20.5-51.1); MEAN CORPUSCULAR HEMOGLOBIN 24 pg (27-31); MEAN CORPUSCULAR HGB CONC 32 g/dL (33-37); MEAN CORPUSCULAR VOLUME 76.1 fL (80-94); MONOCYTES # (AUTO) 0.3 K/uL (0.8-1.0); NEUTROPHILS # (AUTO) 3.6 K/uL (1.8-7.7); NEUTROPHILS % (AUTO) 69.2 % (42.2-75.2); PLATELET COUNT (AUTO) 191 K/uL (140-450); RED BLOOD CELL COUNT(AUTO) 4.97 MIL/uL (4.20-5.40); RED CELL DISTRIBUTION WIDTH 18.9 % (11.6-13.7); WHITE BLOOD COUNT (AUTO) 5.2 K/uL (4.8-10.8)
[2021-07-18] MEDS: ACETAMINOPHEN 325 MG TAB PO PRN ×2 (09:42→17:26)
[2021-07-18 09:54] LABS: ALBUMIN 2.6 g/dL (3.4-5.0); ANION GAP 10.3 (8-16); CARBON DIOXIDE 32.2 mmol/L (21-32); CREATININE 1.6 mg/dL (0.6-1.3); MAGNESIUM 1.8 mg/dL (1.8-2.4); POTASSIUM 4.5 mmol/L (3.5-5.1); TOTAL BILIRUBIN 0.4 mg/dL (0.0-1.0)
[2021-07-18 10:01] LABS: CREATINE KINASE MB 1.7 ng/mL (0-3.6)
[2021-07-18 12:00] VITALS: BP 128/84
[2021-07-18] MEDS ORDERED: LISI5TAB24 PO (12:45)
[2021-07-18 16:56] VITALS: BP 128/84
--- NOTE | 2021-07-18 18:45 | NUR ---
PT DC HOME BOTH IVS TAKEN OUT AND PATENT. PT IS STABLE. DAUGHTER PICKED UP PT IN FRONT OF HOSPITAL .
== END 2021-07-18 18:45 | disposition home or self-care (01) ==
LOC: MED 05:53 → MMU 09:12 → MTU 09:27
PROVIDERS: ADMIT Hospitalist; ATTEND Hospitalist
DX: I13.2 Hypertensive heart and chronic kidney disease with heart failure and with stage 5 chronic kidney disease, or end stage renal disease (principal); Z20.822 Contact with and (suspected) exposure to COVID-19; E11.22 Type 2 diabetes mellitus with diabetic chronic kidney disease; I50.23 Acute on chronic systolic (congestive) heart failure; N18.30 Chronic kidney disease, stage 3 unspecified; J81.1 Chronic pulmonary edema; J96.21 Acute and chronic respiratory failure with hypoxia; J44.9 Chronic obstructive pulmonary disease, unspecified; I25.5 Ischemic cardiomyopathy; Z79.899 Other long term (current) drug therapy
CPT/HCPCS: 36415; 71045; 80053; 82550; 82553; 82948; 83605; 83735; 83880; 84100; 84484; 85025; 87040; 87081; 87426; 93005; 94760; 96372; 96374; 96375; 96376; 99291; G0378; J1815; J1885; J1940; J2270; J3490; Q0092

== ENCOUNTER 2021-07-28 16:42 | Emergency (ER) | payer MEDICAID ==
[~2021-07-28] VITALS: Ht 172.7 cm; Wt 117.0 kg
[~2021-07-28 16:42] MED LIST changes: +LISI5TAB24 PO
--- NOTE | 2021-07-28 17:05 | NUR ---
56 Y/O F BIB [facility] FOR R ARM, R HAND AND R MID BACK PAIN 10 SINCE THIS MORNING. PT ALSO C/O DIFFICULTY BREATHING. ALLERGIES: DEXAMETHASONE, IBUPROFEN, KETAMINE, TRAMADOL PMH: HTN, DM 2, STAGE 3 KIDNEY FAILURE, COPD, HEART FAILURE
[2021-07-28 17:10] VITALS: BP 186/121
--- NOTE | 2021-07-28 17:38 | NUR ---
MELVIN SWABED AND WALKED TO THE LAB.
[2021-07-28] MEDS ORDERED: MORPHINE SULFATE 4 MG/ML SYR IM ONE (17:45)
[2021-07-28 18:16] LABS: BASOPHILS # (AUTO) 0.1 K/uL (0.00-0.22); BASOPHILS % (AUTO) 1.9 % (0.0-2.0); EOSINOPHILS # (AUTO) 0.1 K/uL (0-0.4); EOSINOPHILS % (AUTO) 2.3 % (0.0-4.0); HEMATOCRIT 37.4 % (36-48); LYMPHOCYTES # (AUTO) 1.7 K/uL (2.5-16.5); LYMPHOCYTES % (AUTO) 28.7 % (20.5-51.1); MEAN CORPUSCULAR HEMOGLOBIN 25 pg (27-31); MEAN CORPUSCULAR HGB CONC 32 g/dL (33-37); MEAN CORPUSCULAR VOLUME 76.5 fL (80-94); MONOCYTES # (AUTO) 0.3 K/uL (0.8-1.0); MONOCYTES % (AUTO) 4.7 % (1.7-9.3); NEUTROPHILS # (AUTO) 3.6 K/uL (1.8-7.7); NEUTROPHILS % (AUTO) 62.4 % (42.2-75.2); PLATELET COUNT (AUTO) 204 K/uL (140-450); RED BLOOD CELL COUNT(AUTO) 4.89 MIL/uL (4.20-5.40); RED CELL DISTRIBUTION WIDTH 19.9 % (11.6-13.7); WHITE BLOOD COUNT (AUTO) 5.8 K/uL (4.8-10.8)
[2021-07-28 18:38] LABS: ALBUMIN 3.1 g/dL (3.4-5.0); ANION GAP 12.2 (8-16); CARBON DIOXIDE 28.9 mmol/L (21-32); CREATININE 1.2 mg/dL (0.6-1.3); POTASSIUM 4.1 mmol/L (3.5-5.1); TOTAL BILIRUBIN 0.5 mg/dL (0.0-1.0)
[2021-07-28 18:45] LABS: LIPASE 47 U/L (73-393)
--- NOTE | 2021-07-28 19:23 | NUR ---
GAVE REPORT TO PJ TREVINO.
[2021-07-28] MEDS ORDERED: ONDANSETRON 4 MG/2 ML VIAL IVP ONE (20:00)
[2021-07-28] MEDS ORDERED: MORPHINE SULFATE 4 MG/ML SYR IVP ONE (20:15)
[2021-07-28 20:30] VITALS: BP 129/86
--- NOTE | 2021-07-28 20:30 | NUR ---
Patient discharged with v/s stable. Written and verbal after care instructions given and explained. Patient verbalized understanding. Wheel Chair Assisted with to car. All questions addressed prior to discharge. Advised to follow up with PMD.
== END 2021-07-28 20:30 | disposition home or self-care (01) ==
LOC: MED 16:42
DX: R06.02 Shortness of breath (principal); Z20.822 Contact with and (suspected) exposure to COVID-19; G89.29 Other chronic pain; R77.8 Other specified abnormalities of plasma proteins; I50.9 Heart failure, unspecified; J44.9 Chronic obstructive pulmonary disease, unspecified; E11.9 Type 2 diabetes mellitus without complications; I11.0 Hypertensive heart disease with heart failure; Z79.4 Long term (current) use of insulin; Z79.899 Other long term (current) drug therapy; Z79.82 Long term (current) use of aspirin; Z88.5 Allergy status to narcotic agent; Z88.6 Allergy status to analgesic agent; Z88.8 Allergy status to other drugs, medicaments and biological substances
CPT/HCPCS: 36415; 71045; 80053; 83690; 83880; 84484; 85025; 87426; 93005; 96372; 96374; 96375; 99285; J2270; J2405; Q0092

== ENCOUNTER 2021-08-24 22:43 | Inpatient (IN) | payer MEDICAID ==
[~2021-08-24] VITALS: Ht 172.7 cm; Wt 127.9 kg
[2021-08-24 23:07] VITALS: BP 165/102
--- NOTE | 2021-08-24 23:26 | NUR ---
MD BALDWIN AT BEDSIDE ASSESSING PATIENT
[2021-08-24] MEDS ORDERED: hydrALAZINE 20 MG/ML VIAL IVP ONE (23:30)
[2021-08-24] MEDS ORDERED: ONDANSETRON 4 MG/2 ML VIAL IVP ONE (23:30)
[2021-08-24] MEDS ORDERED: MORPHINE SULFATE 4 MG/ML SYR IVP ONE (23:30)
[2021-08-24] MEDS ORDERED: NITROGLYCERIN 2% 1 GM PKT TP ONE (23:30)
--- NOTE | 2021-08-24 23:38 | NUR ---
PATIENT PLACED IN GOWN, BED LOCKED AND IN LOWEST POSITION. FABIO SIDE RAILS UP FOR SAFETY. ALL NEEDS MET AT THIS TIME.
--- NOTE | 2021-08-24 23:40 | NUR ---
IV ESTABLISHED 22G RIGHT HAND
--- NOTE | 2021-08-24 23:43 | NUR ---
PATIENT BP 199/109. PATIENT STATED THAT SHE MISSED HER LAST DOSE OF BP MEDS. MD MACE
--- NOTE | 2021-08-24 23:44 | NUR ---
LAB AT BEDSIDE
--- NOTE | 2021-08-24 23:45 | NUR ---
56/F BIB SELF C/O CP INTERMITTENTLY, 10/10 AND SOB X3DAYS. PATIENT STATED "FEELS LIKE PRESSURE AND ITS SHARP, GOES TO MY UPPER AND LOWER BACK FABIO. PATIENT STATED SHE WENT TO [facility] X2DAYS AGO, AND WAS TOLD RESULTS WERE GOOD, SO SHE LEFT HOME, BUT THE PAIN PRESISTED. PATIENT HAS BEEN TAKING NORCO PRESCRIBED HER LAST DOSE WAS 08/22/21 AT 2200, WITH NO RELIEF. PATIENT DENIES N/V/C/D/FEVER AT THIS TIME. PMHX CHF, COPD, STAGE 3 KIDNEY FAILURE, HTN, DM ALLERGIES CHECK CHART MEDS CHECK MED REC.
--- NOTE | 2021-08-24 23:46 | NUR ---
RAD AT BEDSIDE
[2021-08-24 23:57] LABS: BASOPHILS # (AUTO) 0.1 K/uL (0.00-0.22); BASOPHILS % (AUTO) 1.9 % (0.0-2.0); EOSINOPHILS # (AUTO) 0.2 K/uL (0-0.4); EOSINOPHILS % (AUTO) 3.6 % (0.0-4.0); HEMATOCRIT 35.4 % (36-48); HEMOGLOBIN 11.4 g/dL (12.0-16.0); LYMPHOCYTES # (AUTO) 1.5 K/uL (2.5-16.5); LYMPHOCYTES % (AUTO) 28.2 % (20.5-51.1); MEAN CORPUSCULAR HEMOGLOBIN 25 pg (27-31); MEAN CORPUSCULAR HGB CONC 32 g/dL (33-37); MEAN CORPUSCULAR VOLUME 76.6 fL (80-94); MONOCYTES # (AUTO) 0.3 K/uL (0.8-1.0); MONOCYTES % (AUTO) 6.2 % (1.7-9.3); NEUTROPHILS # (AUTO) 3.3 K/uL (1.8-7.7); NEUTROPHILS % (AUTO) 60.1 % (42.2-75.2); PLATELET COUNT (AUTO) 230 K/uL (140-450); RED BLOOD CELL COUNT(AUTO) 4.62 MIL/uL (4.20-5.40); RED CELL DISTRIBUTION WIDTH 19.4 % (11.6-13.7); WHITE BLOOD COUNT (AUTO) 5.4 K/uL (4.8-10.8)
[2021-08-25 00:10] LABS: ANION GAP 10.8 (8-16); CARBON DIOXIDE 27.7 mmol/L (21-32); CREATININE 1.2 mg/dL (0.6-1.3); POTASSIUM 3.5 mmol/L (3.5-5.1); TOTAL BILIRUBIN 0.5 mg/dL (0.0-1.0)
--- NOTE | 2021-08-25 00:50 | NUR ---
BP REASSESSED 146/66
--- NOTE | 2021-08-25 00:56 | NUR ---
MELVIN COLLECTED AND WALKED TO LAB
[2021-08-25] MEDS ORDERED: HYDR-3233 PO (00:59)
--- NOTE | 2021-08-25 01:00 | NUR ---
ASSISTED PATIENT WITH ERIN CARE. PLACED CLEAN SHEETS AND GOWN ON. BED LOW AND LOCKED. ALL NEEDS MET AT THIS TIME.
[2021-08-25] MEDS ORDERED: FUROSEMIDE 40 MG/4 ML VIAL IVP ONE (01:50)
[2021-08-25] MEDS ORDERED: MORPHINE SULFATE 4 MG/ML SYR IVP ONE (01:50)
--- NOTE | 2021-08-25 03:51 | NUR ---
HANDED PATIENT MORE BLANKETS. REPOSITIONED COMFORTABLY IN BED. ALL NEEDS MET
--- NOTE | 2021-08-25 04:00 | NUR ---
ASSISTED PATIENT WITH ERIN CARE, BED LOW AND LOCKED. FABIO SIDE RAILS UP FOR SAFETY. ALL NEEDS MET AT THIS TIME.
--- NOTE | 2021-08-25 06:10 | NUR ---
PATIENT SLEEPING QUIETLY IN BED. BED LOW AND LOCKED. FABIO SIDE RAILS UP FOR SAFETY. ALL NEEDS MET AT THIS TIME.
--- NOTE | 2021-08-25 07:15 | NUR ---
Patient will be admitted to care of Marino Russ. Admited to Telemetry . Will go to room ICU 6 . Belongings list completed. Report to June.
--- NOTE | 2021-08-25 07:20 | NUR ---
RECEIVED PT ALERT AND ORIENTED X4. BREATHING EVEN AND UNLABORED ON ROOM AIR. PT C/O CHEST PAIN 6/10 INTERMITTENTLY LASTING A FEW MINUTES BUT DENIES ANY PAIN AT THIS TIME. ABD SOFT WITH ACTIVE BOWEL SOUNDS X4 QUADS. CONTINENT BOTH BOWEL AND BLADDER. VSS. CALL LIGHT WITHIN REACH.
--- NOTE | 2021-08-25 07:40 | NUR ---
SEEN AND EXAMINED BY DR. RODRIGUEZ.
--- NOTE | 2021-08-25 08:30 | NUR ---
SEEN AND EXAMINED BY DR. JIM. NEW ORDERS RECEIVED.
[2021-08-25 09:49] VITALS: BP 136/78
--- NOTE | 2021-08-25 10:36 | NUR ---
PATIENT HAS BEEN SCREENED AND CATEGORIZED MODERATE NUTRITION RISK. PATIENT WILL BE SEEN WITHIN 3-[address]. [address]
[2021-08-25] MEDS ORDERED: ACETAMINOPHEN 325 MG TAB PO PRN (11:45)
[2021-08-25 12:00] VITALS: BP 137/98
--- NOTE | 2021-08-25 12:11 | NUR ---
DC PLANNIN YRS OLD FEMALE PATIENT WAS ADMITTED FROM HOME WITH A DX OF ACUTE CHF, ELEVATED TROPONIN. TROPONIN 350,338. PATIENT WAS RECENTLY DISCHARGED FOR [facility] ON 08/12/21 HAS A HX OF HTN, CHF AND COPD. CXR SHOWED ENLARGED CARDIAC SILHOUETTE WITH PERIHILAR INTERSTITIAL PROMINENCE SUGGESTING CONGESTION. RAPID COVID TEST NEGATIVE. ADMINISTERED HOME MEDS WELL PAIN MEDICATION. CONSULTED WITH PULMO AND CARDIO. DC PLAN TO GO HOME WHEN STABLE. CM TO FOLLOW Addendum: 08/26/21 at 1333 by Bhargavi Cannon RN DC PLANNING: RECEIVED A CALL FROM [employer] [phone] SPOKE WITH CM NAME [facility]RIL, REQUESTED CLINICALS TO BE FAXED TO [phone]. [facility] PROVIDE THE PENDING AUTH# [id number]. FAXED ALL PAPERWORK. CM TO FOLLOW
[2021-08-25] MEDS ORDERED: MAG SULF 2000 MG/WATER PREMIX 50 ML IV PRN (14:40)
[2021-08-25] MEDS ORDERED: KCL 20 MEQ/WATER INJ PREMIX 200 ML IV PRN (14:40)
[2021-08-25] MEDS ORDERED: POTASSIUM CHLORIDE 10 MEQ TABER PO PRN (14:40)
[2021-08-25] MEDS ORDERED: MAGNESIUM OXIDE 400 MG TAB PO PRN (14:40)
[2021-08-25] MEDS ORDERED: HYDROcodone/APAP 5/325 MG 1 TAB TAB PO PRN (14:40)
[2021-08-25] MEDS ORDERED: CLONIDINE HYDROCHLORIDE 0.1 MG TAB PO PRN (14:45)
[2021-08-25] MEDS ORDERED: ALBUTEROL HFA MDI 90 MCG/ACTUATION 8 GM INH PRN (14:45)
[2021-08-25] MEDS ORDERED: NITROGLYCERIN 0.4 MG TAB SL PRN (14:45)
--- NOTE | 2021-08-25 14:45 | NUR ---
ENDORSED TO CHLOE FOR CONTINUITY OF CARE. TRANSFERRED FROM ICU BED 6 TO TELE ROOM 123A. VSS.
--- NOTE | 2021-08-25 14:46 | NUR ---
PATIENT TRANSFERRED TO [facility] UNIT, NO DISTRESS NOTED. DENIES ANY PAIN, ON ROOM AIR. REQUESTING CHANGE IN PURWICK. ORIENTED PATIENT TO ROOM AND CALL LIGHT. SAFETY MEASURES IN PLACE, CALL LIGHT WITHIN REACH. WILL CONTINUE TO MONITOR.
[2021-08-25] MEDS ORDERED: DEXTROSE 50% 50 ML SYR IVP PRN (14:50)
[2021-08-25] MEDS ORDERED: ALBUTEROL 0.083% 2.5 MG/3 ML NEBU INH PRN (15:25)
[2021-08-25 16:00] VITALS: BP 121/80
[2021-08-25] MEDS: BLOOD GLUCOSE MONITORING 1 DEV DEV FS SCH ×2 (16:30→21:22)
[2021-08-25] MEDS: INSULIN LISPRO SLIDING SCALE 100 UNITS/ML VIAL SUBQ PRN ×2 (17:37→21:27)
[2021-08-25] MEDS: hydrALAZINE 10 MG TAB PO SCH (17:37)
--- NOTE | 2021-08-25 17:39 | NUR ---
SCHEDULED MEDICATIONS DUE GIVEN. WILL CONTINUE TO MONITOR.
--- NOTE | 2021-08-25 18:27 | NUR ---
PATIENT SITTING IN BED TALKING ON HER CELLPHONE. NO DISTRESS NOTED. DENIES ANY PAIN. SAFETY MEASURES IN PLACE, CALL LIGHT WITHIN REACH. WILL CONTINUE TO MONITOR.
[2021-08-25] MEDS ORDERED: INSULIN LANTUS 100 UNITS/ML 10 ML VIAL SUBQ SCH (21:00)
[2021-08-25] MEDS ORDERED: ATORVASTATIN 20 MG TAB PO SCH (21:00)
[2021-08-25] MEDS: BUMETANIDE 1 MG TAB PO SCH (21:45)
[2021-08-25] MEDS: carvediloL 12.5 MG TAB PO SCH (21:45)
[2021-08-25] MEDS: APIXABAN 2.5 MG TAB PO SCH (21:46)
[2021-08-25] MEDS: MORPHINE SULFATE 4 MG/ML SYR IVP PRN (21:58)
[2021-08-26] MEDS: MORPHINE SULFATE 4 MG/ML SYR IVP PRN ×2 (03:24→12:12)
[2021-08-26] MEDS: BLOOD GLUCOSE MONITORING 1 DEV DEV FS SCH ×2 (05:39→11:41)
[2021-08-26 06:14] LABS: ALBUMIN 2.8 g/dL (3.4-5.0); CARBON DIOXIDE 31.8 mmol/L (21-32); CREATININE 1.3 mg/dL (0.6-1.3); MAGNESIUM 1.6 mg/dL (1.8-2.4); POTASSIUM 3.8 mmol/L (3.5-5.1); TOTAL BILIRUBIN 0.4 mg/dL (0.0-1.0)
[2021-08-26 06:55] LABS: BASOPHILS # (AUTO) 0.1 K/uL (0.00-0.22); BASOPHILS % (AUTO) 1.3 % (0.0-2.0); EOSINOPHILS # (AUTO) 0.2 K/uL (0-0.4); EOSINOPHILS % (AUTO) 4.6 % (0.0-4.0); HEMATOCRIT 34.2 % (36-48); HEMOGLOBIN 10.8 g/dL (12.0-16.0); LYMPHOCYTES # (AUTO) 1.2 K/uL (2.5-16.5); LYMPHOCYTES % (AUTO) 22.3 % (20.5-51.1); MEAN CORPUSCULAR HEMOGLOBIN 24 pg (27-31); MEAN CORPUSCULAR HGB CONC 32 g/dL (33-37); MEAN CORPUSCULAR VOLUME 76.7 fL (80-94); MONOCYTES # (AUTO) 0.4 K/uL (0.8-1.0); MONOCYTES % (AUTO) 8.6 % (1.7-9.3); NEUTROPHILS # (AUTO) 3.3 K/uL (1.8-7.7); NEUTROPHILS % (AUTO) 63.2 % (42.2-75.2); PLATELET COUNT (AUTO) 214 K/uL (140-450); RED BLOOD CELL COUNT(AUTO) 4.45 MIL/uL (4.20-5.40); RED CELL DISTRIBUTION WIDTH 19.4 % (11.6-13.7); WHITE BLOOD COUNT (AUTO) 5.2 K/uL (4.8-10.8)
[2021-08-26 07:18] VITALS: BP 159/96
--- NOTE | 2021-08-26 07:45 | NUR ---
END OF SHIFT REPORT TO INCOMING RN. PT RESTING IN BED, SPEAKING ON THE PHONE. PT IS STABLE AT THIS TIME.
--- NOTE | 2021-08-26 07:48 | NUR ---
RECEIVED PT ASLEEP, RESPIRATION IS EVEN, VISIBLE CHEST RISE AND FALL, SAFETY PRECAUTION IN PLACE, IV LINE NOTED ON THE RT HAND G. 22 ON SALINE LOCK, PT IS ON RA, NO SIGN OF DISTRESS NOTED AND WILL CONTINUE TO MONITOR PT.
[2021-08-26 08:00] VITALS: BP 129/87
[2021-08-26] MEDS ORDERED: lisinopriL 5 MG TAB PO SCH (09:00)
[2021-08-26] MEDS ORDERED: ASPIRIN 81 MG TAB.CHEW PO SCH (09:00)
[2021-08-26] MEDS ORDERED: SPIRONOLACTONE 25 MG TAB PO SCH (09:00)
[2021-08-26] MEDS: carvediloL 12.5 MG TAB PO SCH (09:14)
[2021-08-26] MEDS: BUMETANIDE 1 MG TAB PO SCH (09:14)
[2021-08-26] MEDS: APIXABAN 2.5 MG TAB PO SCH (09:15)
[2021-08-26] MEDS: hydrALAZINE 10 MG TAB PO SCH ×2 (09:16→12:24)
--- NOTE | 2021-08-26 09:16 | NUR ---
PT WAS GIVEN THE SCHEDULED AM MEDICATIONS NOW, PARAMETERS CHECKED, BP IS 137/82, PULSE IS 77.
[2021-08-26 12:00] VITALS: BP 127/79
--- NOTE | 2021-08-26 12:05 | NUR ---
RECEIVED A CALL FROM DR. DALE KING MADE TELEPHONE ORDER TO DO EKG AND TROPONIN DRAW TO PT NOW, ORDERS VERIFIED AND WILL BE CARRIED OUT.
[2021-08-26] MEDS: INSULIN LISPRO SLIDING SCALE 100 UNITS/ML VIAL SUBQ PRN (12:14)
--- NOTE | 2021-08-26 12:54 | NUR ---
DC PLANNING PATIENT WAS ADMITTED TO [facility] ON 08/25 W/ ACUTE CHF, ELEVATED TROPONIN. SW MET WITH PATIENT AT BEDSIDE FOR THE PURPOSE OF GATHERING COLLATERAL INFORMATION. PATIENT REPORTS LIVING AT THE ADDRESS ON FILE WITH HER TWO ADULT CHILDREN, TWO GRANDCHILDREN AND TWO GREAT NEPHEWS. PATIENT REPORTS EMERGENCY CONTACT AND MEDICAL DECISION MAKER HER TWO DAUGHTERS ESTEFANIA BOWENS [phone] AND NAYA SHELL [phone]. PATIENT DECLINED A.D PACKET OFFERED BY TAMMY AND REPORTED HAVING A DPOA IN PLACE. PATIENT REPORTS MEETING WITH PCP REGULARLY, REPORTS LAST VISIT IN JUNE, AND NEXT VISIT FOR 08/[address] KING. PATIENT REPORTED BEING COMPLAINT WITH MEDICATIONS SINCE LAST HOSPITAL VISITS. PATIENT DENIES BARRIERS IN ACCESSING MEDICATIONS AND REPORTS RECEIVING MEDICATIONS FROM [facility] IN [place], WHEN NEEDED . PATIENT REPORTS BEING AMBULATORY WITH DME ASSISTANCE. PATIENT REPORTS DME WALKER, WHEELCHAIR, BEDSIDE COMMODE, O2 AND GLUCOMETER. PATIENT REPORTS THAT DAUGHTER IS HER IHSS WORKER. PATIENT DENIES RECEIVING DIALYSIS AND REPORTS RECEIVING HOME HEALTH IN THE PAST (2019) BUT STRUGGLED TO REMEMBER NAME OF COMPANY. PATIENT REPORTS ADEQUATE FRIEND AND FAMILY SUPPORT AND REPORTS THAT HER FAMILY WILL PROVIDE TRANSPORTATION AND AID IN HER CARE IF REQUIRED. PATIENT DC PLAN IS TO RETURN HOME WITH ELDEST DAUGHTER PROVIDING TRANSPORTATION. SW TO FOLLOW, NEEDED.
--- NOTE | 2021-08-26 17:20 | NUR ---
DISCHARGED PT TO HOME ACCOMPANIED BY [facility], DISCHARGE INSTRUCTIONS GIVEN TO PT AND VERBALIZED UNDERSTANDING, IV LINE REMOVED AND PT IS STABLE AT THIS TIME.
== END 2021-08-26 17:20 | disposition home or self-care (01) | DRG 190 ==
LOC: MED 22:43 → MTU 08-25 02:34 → MIC 08-25 07:10 → MTU 08-25 14:45
PROVIDERS: ADMIT Internal Medicine; ATTEND Internal Medicine
DX: I21.4 Non-ST elevation (NSTEMI) myocardial infarction (principal); I50.9 Heart failure, unspecified; E11.22 Type 2 diabetes mellitus with diabetic chronic kidney disease; I13.0 Hypertensive heart and chronic kidney disease with heart failure and stage 1 through stage 4 chronic kidney disease, or unspecified chronic kidney disease; Z20.822 Contact with and (suspected) exposure to COVID-19; I48.91 Unspecified atrial fibrillation; Z88.4 Allergy status to anesthetic agent; Z88.8 Allergy status to other drugs, medicaments and biological substances; Z79.899 Other long term (current) drug therapy; Z79.891 Long term (current) use of opiate analgesic; Z79.82 Long term (current) use of aspirin; J44.9 Chronic obstructive pulmonary disease, unspecified; N18.9 Chronic kidney disease, unspecified
CPT/HCPCS: 36415; 71045; 80053; 82948; 83735; 83880; 84484; 85025; 85379; 87081; 93005; 96374; 96375; 96376; 99291; J0360; J1644; J1815; J1940; J2270; J2405; Q0092

== ENCOUNTER 2021-09-06 21:48 | Emergency (ER) | payer MEDICAID ==
[~2021-09-06] VITALS: Ht 172.7 cm; Wt 117.0 kg
[~2021-09-06 21:48] MED LIST changes: +HYDR-3233 PO
[2021-09-06 21:50] VITALS: BP 175/110
--- NOTE | 2021-09-06 21:55 | NUR ---
PT DILLON GALLARDO, TAKEN TO BED 1
[2021-09-06] MEDS ORDERED: MORPHINE SULFATE 2 MG/ML SYR IVP ONE (22:20)
--- NOTE | 2021-09-06 23:05 | NUR ---
56 YO BIBA FROM HOME WITH C/O DIFF OF BREATHING , WHEEZING , RALES, 2 DOSES OF NITRO WAS GIVEN ENROUTE. PMH: CHF, DM, HTN
[2021-09-06 23:15] LABS: ALBUMIN 3.1 g/dL (3.4-5.0); ANION GAP 4.7 (8-16); CARBON DIOXIDE 31.8 mmol/L (21-32); CREATININE 1.2 mg/dL (0.6-1.3); POTASSIUM 3.5 mmol/L (3.5-5.1); TOTAL BILIRUBIN 0.6 mg/dL (0.0-1.0)
[2021-09-06 23:20] LABS: BASOPHILS # (AUTO) 0.1 K/uL (0.00-0.22); BASOPHILS % (AUTO) 1.6 % (0.0-2.0); EOSINOPHILS # (AUTO) 0.2 K/uL (0-0.4); EOSINOPHILS % (AUTO) 3.7 % (0.0-4.0); HEMOGLOBIN 11.6 g/dL (12.0-16.0); LYMPHOCYTES # (AUTO) 1.5 K/uL (2.5-16.5); LYMPHOCYTES % (AUTO) 28.8 % (20.5-51.1); MEAN CORPUSCULAR HEMOGLOBIN 24 pg (27-31); MEAN CORPUSCULAR HGB CONC 31 g/dL (33-37); MEAN CORPUSCULAR VOLUME 76.4 fL (80-94); MONOCYTES # (AUTO) 0.3 K/uL (0.8-1.0); MONOCYTES % (AUTO) 6.4 % (1.7-9.3); NEUTROPHILS % (AUTO) 59.5 % (42.2-75.2); PLATELET COUNT (AUTO) 201 K/uL (140-450); RED BLOOD CELL COUNT(AUTO) 4.84 MIL/uL (4.20-5.40); RED CELL DISTRIBUTION WIDTH 18.6 % (11.6-13.7); WHITE BLOOD COUNT (AUTO) 5.1 K/uL (4.8-10.8)
[2021-09-06] MEDS ORDERED: BUMETANIDE 1 MG/4 ML VIAL IV ONE (23:30)
[2021-09-06] MEDS ORDERED: hydrALAZINE 20 MG/ML VIAL IVP ONE (23:50)
[2021-09-06] MEDS ORDERED: FUROSEMIDE 100 MG/10 ML VIAL IVP ONE (23:50)
[2021-09-07] MEDS ORDERED: LABETALOL 100 MG/20 ML VIAL IVP ONE (01:05)
--- NOTE | 2021-09-07 01:30 | NUR ---
Patient appears to be resting comfortably in bed. Vital Signs within normal limits. Respirations even and unlabored.
[2021-09-07] MEDS ORDERED: LORazepam 1 MG TAB PO ONE (01:50)
[2021-09-07] MEDS ORDERED: LABETALOL 200 MG TAB ONE (01:54)
[2021-09-07] MEDS ORDERED: LABETALOL 100 MG/20 ML VIAL ONE (02:15)
[2021-09-07 02:22] LABS: APPEARANCE,URINE CLEAR (CLEAR); BILIRUBIN,URINE NEGATIVE (NEGATIVE); BLOOD, URINE 1+ (NEGATIVE); COLOR,URINE YELLOW (YELLOW); LEUKOCYTE ESTERASE ,URINE NEGATIVE (NEGATIVE); NITRITE, URINE NEGATIVE (NEGATIVE); UGLUCOSE NEGATIVE (NEGATIVE)
[2021-09-07 02:25] LABS: RBC,URINE 0-5 /HPF (0-5); WBC,URINE 0-5 /HPF (0-5)
[2021-09-07] MEDS ORDERED: cephALEXin 500 MG CAP PO ONE (03:00)
[2021-09-07] MEDS ORDERED: HYDROcodone/APAP 10/325 MG 1 TAB TAB PO STA (03:00)
[2021-09-07 04:48] VITALS: BP 147/83
== END 2021-09-07 04:48 | disposition home or self-care (01) ==
LOC: MED 21:48
DX: E11.22 Type 2 diabetes mellitus with diabetic chronic kidney disease (principal); I13.0 Hypertensive heart and chronic kidney disease with heart failure and stage 1 through stage 4 chronic kidney disease, or unspecified chronic kidney disease; N18.30 Chronic kidney disease, stage 3 unspecified; I50.9 Heart failure, unspecified; J44.9 Chronic obstructive pulmonary disease, unspecified; K21.9 Gastro-esophageal reflux disease without esophagitis; Z79.899 Other long term (current) drug therapy; Z79.01 Long term (current) use of anticoagulants; Z79.82 Long term (current) use of aspirin; Z79.4 Long term (current) use of insulin; Z79.891 Long term (current) use of opiate analgesic; Z88.8 Allergy status to other drugs, medicaments and biological substances; Z88.6 Allergy status to analgesic agent; Z88.5 Allergy status to narcotic agent; Z88.4 Allergy status to anesthetic agent
CPT/HCPCS: 36415; 71045; 80053; 81001; 83880; 84484; 85025; 87086; 93005; 96374; 96375; 99285; J0360; J1940; J2270; J3490

== ENCOUNTER 2021-10-29 21:29 | Observation (INO) | payer MEDICAID ==
[~2021-10-29] VITALS: Ht 172.7 cm; Wt 117.0 kg
[~2021-10-29 21:29] MED LIST changes: +DIPH25TA53 PO
[2021-10-29] MEDS ORDERED: NITROGLYCERIN 2% 1 GM PKT TP ONE ×2 (21:40→23:17)
[2021-10-29] MEDS ORDERED: MORPHINE SULFATE 4 MG/ML SYR IVP ONE (21:40)
[2021-10-29] MEDS ORDERED: ASPIRIN 325 MG TAB PO ONE (21:40)
[2021-10-29] MEDS ORDERED: FUROSEMIDE 100 MG/10 ML VIAL IVP ONE (21:45)
--- NOTE | 2021-10-29 21:52 | NUR ---
PT BIBA BLS TO BED 11
[2021-10-29 21:53] VITALS: BP 161/101
[2021-10-29 21:56] LABS: BASOPHILS # (AUTO) 0.1 K/uL (0.00-0.22); BASOPHILS % (AUTO) 1.6 % (0.0-2.0); EOSINOPHILS # (AUTO) 0.4 K/uL (0-0.4); EOSINOPHILS % (AUTO) 7.6 % (0.0-4.0); HEMATOCRIT 36.1 % (36-48); HEMOGLOBIN 11.5 g/dL (12.0-16.0); LYMPHOCYTES # (AUTO) 1.1 K/uL (2.5-16.5); LYMPHOCYTES % (AUTO) 21.9 % (20.5-51.1); MEAN CORPUSCULAR HEMOGLOBIN 24 pg (27-31); MEAN CORPUSCULAR HGB CONC 32 g/dL (33-37); MEAN CORPUSCULAR VOLUME 75.9 fL (80-94); MONOCYTES # (AUTO) 0.4 K/uL (0.8-1.0); MONOCYTES % (AUTO) 7.3 % (1.7-9.3); NEUTROPHILS % (AUTO) 61.6 % (42.2-75.2); PLATELET COUNT (AUTO) 200 K/uL (140-450); RED BLOOD CELL COUNT(AUTO) 4.75 MIL/uL (4.20-5.40); RED CELL DISTRIBUTION WIDTH 19.2 % (11.6-13.7); WHITE BLOOD COUNT (AUTO) 4.9 K/uL (4.8-10.8)
[2021-10-29 22:12] LABS: ALBUMIN 3.1 g/dL (3.4-5.0); ANION GAP 10.6 (8-16); CARBON DIOXIDE 29.7 mmol/L (21-32); CREATININE 1.5 mg/dL (0.6-1.3); POTASSIUM 3.3 mmol/L (3.5-5.1); TOTAL BILIRUBIN 0.5 mg/dL (0.0-1.0)
[2021-10-29] MEDS ORDERED: ENALAPRILAT 2.5 MG/2 ML VIAL IVP ONE (22:25)
[2021-10-29] MEDS ORDERED: hydrALAZINE 20 MG/ML VIAL IVP ONE (22:25)
--- NOTE | 2021-10-29 22:46 | NUR ---
xray at bedside
[2021-10-29] MEDS ORDERED: FUROSEMIDE 100 MG/10 ML VIAL ONE (23:17)
[2021-10-29] MEDS ORDERED: ASPIRIN 325 MG TAB ONE (23:18)
[2021-10-29] MEDS ORDERED: MORPHINE SULFATE 4 MG/ML SYR ONE (23:18)
[2021-10-30] VITALS (7 sets, daily range): BP systolic 99–158; BP diastolic 46–100
--- NOTE | 2021-10-30 00:01 | NUR ---
56 y/o female biba from home, c/o cp x2 hrs. pt state the pain is pressure 6/10 radiating to bilateral neck. per medic pt was given x3 sprays of nitro with relief and placed on 2 l/min nasal canula while en route. pt is a/ox4, gcs-15; unlabored breathing, speaking in full sentences; ambulatory with assistance. skin pink/dry/warm. denies cough, fever, n/v/d.
--- NOTE | 2021-10-30 00:08 | NUR ---
pt given pure-wick with bedside commode.
[2021-10-30] MEDS ORDERED: INSULIN REGULAR, HUMAN 100 UNIT/ML VIAL IV ONE (00:35)
[2021-10-30] MEDS ORDERED: POTASSIUM CHLORIDE 20% 40 MEQ/15 ML UDC PO ONE (00:35)
--- NOTE | 2021-10-30 00:38 | NUR ---
spoke with Rita from [facility] pertaining to pt admit.
[2021-10-30] MEDS ORDERED: MAGNESIUM OXIDE 400 MG TAB PO PRN (01:10)
[2021-10-30] MEDS ORDERED: KCL 20 MEQ/WATER INJ PREMIX 200 ML IV PRN (01:10)
[2021-10-30] MEDS ORDERED: ACETAMINOPHEN 325 MG TAB PO PRN (01:10)
[2021-10-30] MEDS ORDERED: MORPHINE SULFATE 4 MG/ML SYR IVP PRN (01:10)
[2021-10-30] MEDS ORDERED: HYDROcodone/APAP 5/325 MG 1 TAB TAB PO PRN (01:10)
[2021-10-30] MEDS ORDERED: MAG SULF 2000 MG/WATER PREMIX 50 ML IV PRN (01:10)
[2021-10-30] MEDS ORDERED: POTASSIUM CHLORIDE 10 MEQ TABER PO PRN (01:10)
[2021-10-30] MEDS ORDERED: DEXTROSE 50% 50 ML SYR IVP PRN (01:15)
[2021-10-30] MEDS ORDERED: hydrALAZINE 20 MG/ML VIAL IVP PRN (01:15)
--- NOTE | 2021-10-30 02:00 | NUR ---
PATIENT ATE HER LUNCH. 1100 URINE OUTPUT DISCARDED FROM PUREWICK SUCTION.
[2021-10-30] MEDS ORDERED: MORPHINE SULFATE 4 MG/ML SYR IVP ONE (02:10)
[2021-10-30] MEDS ORDERED: KCL 20 MEQ/WATER INJ PREMIX 100 ML IV ONE (02:15)
[2021-10-30] MEDS: MORPHINE SULFATE 2 MG/ML SYR IVP PRN ×2 (02:25→20:40)
--- NOTE | 2021-10-30 02:39 | NUR ---
pt seated semi hughes in bed. unlabored breathing. pt states she is uncomfortable, given morphine for pain. vss.
--- NOTE | 2021-10-30 07:22 | NUR ---
Pt report given to elvis rose. Transfer of care at this time.
--- NOTE | 2021-10-30 07:29 | NUR ---
Report received from Kendall. Transfer of care at this time.
--- NOTE | 2021-10-30 07:45 | NUR ---
Patient will be admitted to care of Dr Mota. Admited to ICU. Will go to bed 2. Belongings list completed. Report to BELINDA Munroe.
--- NOTE | 2021-10-30 08:00 | NUR ---
REPORT RECEIVED FROM ER NURSE.
[2021-10-30] MEDS: FUROSEMIDE 40 MG/4 ML VIAL IVP SCH ×2 (09:00→22:50)
[2021-10-30] MEDS ORDERED: ATORVASTATIN 20 MG TAB PO SCH (09:00)
[2021-10-30] MEDS: ASPIRIN 81 MG TAB.CHEW PO SCH (09:00)
[2021-10-30] MEDS: BLOOD GLUCOSE MONITORING 1 DEV DEV FS SCH ×4 (09:42→21:00)
[2021-10-30] MEDS: INSULIN LISPRO SLIDING SCALE 100 UNITS/ML VIAL SUBQ PRN ×3 (09:57→23:00)
--- NOTE | 2021-10-30 10:00 | NUR ---
PATIENT A&O X4 AND ABLE TO MAKE NEEDS KNOWN. 02 3L VIA NASAL CANULA. LUNGS CLEAR TO AUSCULTATION. CONSISTENT CARB DIET, NO DYSPHAGIA. PATIENT WITH PUREWICK SUCTION. SINUS RHYTHM , PERIPHERAL PULSES FELT ON ALL EXTREMITIES. 18 GAUGE PERIPHERAL IV ACCESS ON LAC. PATIENT IS DIABETIC, LAST BS - 214. SKIN IS INTACT. PATIENT RESTING AT THIS TIME.
[2021-10-30] MEDS ORDERED: CLONIDINE HYDROCHLORIDE 0.1 MG TAB PO PRN (10:05)
[2021-10-30] MEDS ORDERED: ALBUTEROL HFA MDI 90 MCG/ACTUATION 8 GM INH PRN (10:05)
[2021-10-30] MEDS ORDERED: NITROGLYCERIN 0.4 MG TAB SL PRN (10:05)
--- NOTE | 2021-10-30 10:10 | NUR ---
RT CALLED FOR MDI TREATMENT. SATURATION 99 ON 3L. BREATH SOUNDS WERE DIMINISHED BILATERALLY. AFTER TREATMENT ,BETTER AERATION IN THE APICES, DIMINISHED IN THE BASES. PT STATED SHE FEELS A LITTLE BETTER.
[2021-10-30] MEDS ORDERED: ALBUTEROL 0.083% 2.5 MG/3 ML NEBU INH PRN (10:20)
--- NOTE | 2021-10-30 10:40 | NUR ---
PATIENT HAS BEEN SCREENED AND CATEGORIZED MODERATE NUTRITION RISK. PATIENT WILL BE SEEN WITHIN 3-[address]. [address]
[2021-10-30] MEDS ORDERED: POTASSIUM CHLORIDE 10 MEQ TABER PO SCH (11:00)
--- NOTE | 2021-10-30 12:00 | NUR ---
K LEVEL 3.3L. DR. JIM ORDERED POTASSIUM CHLORIDE TAB 20 MEQ. ALSO ORDERED TO TITRATE PT 02 DOWN.
[2021-10-30] MEDS: hydrALAZINE 10 MG TAB PO SCH ×2 (13:04→17:09)
--- NOTE | 2021-10-30 15:59 | NUR ---
PATIENT SLEEPING. TEMP 97.2.
--- NOTE | 2021-10-30 16:30 | NUR ---
PATIENT BS 121. NO INSULIN COVERAGE NEEDED.
[2021-10-30] MEDS: carvediloL 12.5 MG TAB PO SCH (17:09)
--- NOTE | 2021-10-30 19:30 | NUR ---
ENDORSED TO SALE PROFESSIONAL DIGITAL MARKETING RN IRIS.
[2021-10-30] MEDS: APIXABAN 2.5 MG TAB PO SCH (22:52)
[2021-10-31] VITALS: BP 155/46
--- NOTE | 2021-10-31 01:00 | NUR ---
PATIENT AWAKE ALERT ON 2 LITERS N/C SAT 99% LUNGS DIMINISH ON MONITOR SINUS HEART RATE 84 TEMP 98.4 PATIENT IS OBESE HAS A PURWICK TO URINATE. PATIENT IS OBESE. HAS 18 GA IN RIGHT WRIST.PATIENT C/O OF BACK PAIN GIVEN MORPHINE 2 MG IVP 2039. BLOOD SUGAR 0 128 NO COVERAGE NEEDED.
[2021-10-31] MEDS: MORPHINE SULFATE 2 MG/ML SYR IVP PRN ×2 (02:25→09:06)
[2021-10-31 04:00] VITALS: BP 126/66
[2021-10-31 06:12] LABS: ALBUMIN 2.9 g/dL (3.4-5.0); ANION GAP 10.2 (8-16); CARBON DIOXIDE 32.2 mmol/L (21-32); CREATININE 1.4 mg/dL (0.6-1.3); MAGNESIUM 1.3 mg/dL (1.8-2.4); POTASSIUM 4.4 mmol/L (3.5-5.1); TOTAL BILIRUBIN 0.5 mg/dL (0.0-1.0)
[2021-10-31 06:28] LABS: BASOPHILS # (AUTO) 0.1 K/uL (0.00-0.22); BASOPHILS % (AUTO) 0.9 % (0.0-2.0); EOSINOPHILS # (AUTO) 0.4 K/uL (0-0.4); EOSINOPHILS % (AUTO) 6.9 % (0.0-4.0); HEMATOCRIT 38.2 % (36-48); HEMOGLOBIN 12.2 g/dL (12.0-16.0); LYMPHOCYTES # (AUTO) 0.9 K/uL (2.5-16.5); LYMPHOCYTES % (AUTO) 15.5 % (20.5-51.1); MEAN CORPUSCULAR HEMOGLOBIN 24 pg (27-31); MEAN CORPUSCULAR HGB CONC 32 g/dL (33-37); MONOCYTES # (AUTO) 0.4 K/uL (0.8-1.0); MONOCYTES % (AUTO) 7.4 % (1.7-9.3); NEUTROPHILS # (AUTO) 3.9 K/uL (1.8-7.7); NEUTROPHILS % (AUTO) 69.3 % (42.2-75.2); PLATELET COUNT (AUTO) 219 K/uL (140-450); RED BLOOD CELL COUNT(AUTO) 5.03 MIL/uL (4.20-5.40); WHITE BLOOD COUNT (AUTO) 5.6 K/uL (4.8-10.8)
[2021-10-31] MEDS: BLOOD GLUCOSE MONITORING 1 DEV DEV FS SCH ×2 (06:36→11:43)
[2021-10-31] MEDS: INSULIN LISPRO SLIDING SCALE 100 UNITS/ML VIAL SUBQ PRN ×2 (06:37→11:44)
--- NOTE | 2021-10-31 07:29 | NUR ---
RECEIVED REPORT FROM DIRECTORY COMPILER BELINDA BIRD.
--- NOTE | 2021-10-31 07:52 | NUR ---
PATIENT A&O X4, ABLE TO MAKE NEEDS KNOWN. LUNGS CLEAR TO AUSCULTATION AND PATIENT ON 02 2L VIA NASAL CANULA. NO COMPLAINTS OF SOB. ON CARB DIET AND BOWEL SOUNDS ACTIVE. PATIENT USING PUREWICK SUCTION TO ASSIST WITH URINATION. PATIENT ON SR, PERIPHERAL PULSES FELT ON ALL EXTREMITIES. PERIPHERAL IV ACCESS ON LEFT HAND. SKIN INTACT. PATIENT C/O PAIN TO HEAD AND SHOULDER. PAIN LEVEL 8/10. NO OTHER COMPLAINTS AT THIS TIME.
[2021-10-31 08:00] VITALS: BP 143/46
[2021-10-31] MEDS: FUROSEMIDE 40 MG/4 ML VIAL IVP SCH (08:21)
[2021-10-31] MEDS: ASPIRIN 81 MG TAB.CHEW PO SCH (08:23)
[2021-10-31] MEDS: APIXABAN 2.5 MG TAB PO SCH (08:23)
[2021-10-31] MEDS: hydrALAZINE 10 MG TAB PO SCH (08:23)
[2021-10-31] MEDS: carvediloL 12.5 MG TAB PO SCH (08:24)
--- NOTE | 2021-10-31 09:20 | NUR ---
AT BEDSIDE. HE IS OK WITH PATIENT GOING HOME BUT HE WANTS TO KNOW HOW SHE WALKS WITH A WALKER FIRST.
--- NOTE | 2021-10-31 10:22 | NUR ---
PATIENT TOLERATED WALK AROUND THE UNIT WELL, VITALS STABLE.
--- NOTE | 2021-10-31 11:32 | NUR ---
SEEN AND EXAMINED BY DR STANLEY. NO NEW ORDERS.
[2021-10-31 11:36] VITALS: BP 106/60
[2021-10-31 12:00] VITALS: BP 112/71
--- NOTE | 2021-10-31 12:30 | NUR ---
PROVIDED DISCHARGE TEACHING, PT VERBALIZED UNDERSTANDING. PT SIGNED DISCHARGE PAPERWORK. ID BAND REMOVED. LW 18G REMOVED. TOLERATED WELL. TAKEN TO LOBBY VIA WHEELCHAIR WITH MYSELF AND HEATH RN. TRANSFERRED TO FAMILY VEHICLE. PT IN NO ACUTE DISTRESS, STABLE.
[2021-10-31] MEDS ORDERED: ATORVASTATIN 20 MG TAB PO SCH (21:00)
== END 2021-10-31 12:30 | disposition home or self-care (01) ==
LOC: MED 21:29 → MTU 10-30 01:07 → MIC 10-30 06:46
PROVIDERS: ADMIT Internal Medicine; ATTEND Internal Medicine
DX: R07.89 Other chest pain (principal); Z20.822 Contact with and (suspected) exposure to COVID-19; I21.4 Non-ST elevation (NSTEMI) myocardial infarction; I13.0 Hypertensive heart and chronic kidney disease with heart failure and stage 1 through stage 4 chronic kidney disease, or unspecified chronic kidney disease; I50.9 Heart failure, unspecified; N18.9 Chronic kidney disease, unspecified; N17.9 Acute kidney failure, unspecified; J44.9 Chronic obstructive pulmonary disease, unspecified; I20.9 Angina pectoris, unspecified; I48.91 Unspecified atrial fibrillation; E11.22 Type 2 diabetes mellitus with diabetic chronic kidney disease; E78.5 Hyperlipidemia, unspecified; K21.9 Gastro-esophageal reflux disease without esophagitis; E66.9 Obesity, unspecified; Z79.899 Other long term (current) drug therapy
CPT/HCPCS: 36415; 71045; 80053; 82948; 83735; 83880; 84484; 85025; 87081; 87426; 93005; 94664; 94760; 96372; 96374; 96375; 96376; 99291; G0378; J0360; J1644; J1815; J1940; J2270; J3480; J3490; Q0092

== ENCOUNTER 2021-12-15 20:14 | Inpatient (IN) | payer MEDICAID ==
[~2021-12-15] VITALS: Ht 172.7 cm; Wt 119.5 kg
--- NOTE | 2021-12-15 20:16 | NUR ---
DILLON GALLARDO TAKEN TO BED #4
[2021-12-15 20:21] VITALS: BP 142/94
--- NOTE | 2021-12-15 20:22 | NUR ---
Dr. Johnson examining patient.
[2021-12-15] MEDS ORDERED: ONDANSETRON 4 MG/2 ML VIAL IVP ONE (20:30)
[2021-12-15] MEDS ORDERED: MORPHINE SULFATE 4 MG/ML SYR IVP ONE (20:30)
[2021-12-15] MEDS ORDERED: NACL 0.9% 500 ML IV ONE (20:30)
[2021-12-15 20:48] LABS: BASOPHILS # (AUTO) 0.1 K/uL (0.00-0.22); EOSINOPHILS # (AUTO) 0.2 K/uL (0-0.4); EOSINOPHILS % (AUTO) 2.2 % (0.0-4.0)
[2021-12-15 20:52] LABS: BASOPHILS % (AUTO) 1.9 % (0.0-2.0); HEMOGLOBIN 13.6 g/dL (12.0-16.0); LYMPHOCYTES # (AUTO) 2.4 K/uL (2.5-16.5); LYMPHOCYTES % (AUTO) 35.5 % (20.5-51.1); MEAN CORPUSCULAR HEMOGLOBIN 22 pg (27-31); MEAN CORPUSCULAR HGB CONC 30 g/dL (33-37); MEAN CORPUSCULAR VOLUME 75.3 fL (80-94); MONOCYTES # (AUTO) 0.6 K/uL (0.8-1.0); MONOCYTES % (AUTO) 8.7 % (1.7-9.3); NEUTROPHILS # (AUTO) 3.5 K/uL (1.8-7.7); NEUTROPHILS % (AUTO) 51.7 % (42.2-75.2); PLATELET COUNT (AUTO) 63 K/uL (140-450); RED CELL DISTRIBUTION WIDTH 18.7 % (11.6-13.7); WHITE BLOOD COUNT (AUTO) 6.8 K/uL (4.8-10.8)
[2021-12-15 21:05] LABS: ALBUMIN 2.8 g/dL (3.4-5.0); ANION GAP 14.3 (8-16); CARBON DIOXIDE 26.1 mmol/L (21-32); CREATININE 1.6 mg/dL (0.6-1.3); POTASSIUM 5.4 mmol/L (3.5-5.1); TOTAL BILIRUBIN 0.2 mg/dL (0.0-1.0)
[2021-12-15] MEDS ORDERED: INSULIN REGULAR, HUMAN 100 UNIT/ML VIAL IVP ONE (21:25)
[2021-12-15] MEDS ORDERED: HYDROcodone/APAP 5/325 MG 1 TAB TAB PO PRN (21:55)
[2021-12-15] MEDS ORDERED: ZOLPIDEM 5 MG TAB PO PRN (21:55)
[2021-12-15] MEDS ORDERED: ONDANSETRON 4 MG/2 ML VIAL IVP PRN (21:55)
[2021-12-15] MEDS ORDERED: POTASSIUM CHLORIDE 10 MEQ TABER PO PRN (21:55)
[2021-12-15] MEDS ORDERED: NITROGLYCERIN 0.4 MG TAB SL SCH (21:55)
[2021-12-15] MEDS ORDERED: ACETAMINOPHEN 325 MG TAB PO PRN (21:55)
[2021-12-15] MEDS ORDERED: CLONIDINE HYDROCHLORIDE 0.1 MG TAB PO PRN (21:55)
[2021-12-15] MEDS ORDERED: LORazepam 1 MG TAB PO PRN (21:55)
[2021-12-15] MEDS: INSULIN LANTUS 100 UNITS/ML 10 ML VIAL SUBQ SCH (23:46)
--- NOTE | 2021-12-15 23:56 | NUR ---
Patient stated her pain is "7/10," but she "does not want Mousie." Dr. Farnsworth verbally informed over phone that patient is declining Mousie. Dr. Benoit verbally acknowledged understanding. Dr. Benoit stated he "Will not prescribe other pain medication." Patient verbally informed of Dr. Benoit's decision, patient verbalized understanding. Patient still declines Mousie.
--- NOTE | 2021-12-16 00:10 | NUR ---
Patient will be admitted to care of Janay TREVINO. Admited to Telemetry. Will go to room 126B. Belongings list completed. Bedside report given to Janay TREVINO. Janay TREVINO verbalized understanding, no further questions.
--- NOTE | 2021-12-16 00:20 | NUR ---
PT WAS ADMITTED TO [facility] DEPARTMENT FROM [facility] WITH THE DX OF CHF AND CHEST PAIN WITH COPD EXACERBATION. PT IS AOX4, BEDREST, ABLE TO VERBALIZE NEEDS AND FOLLOW COMMANDS. PT IS ON CARDIAC DIET AND ON ROOM AIR. PT HAS SALINE LOCK ON LEFT WRIST GAUGE 20. PT SKIN IS INTACT. PT COMPLAIN OF PAIN ON CHEST 8/10 BUT REFUSED TO TAKE NORCO. ORIENTED PT TO HOSPITAL/ROOM, BED BUTTONS, AND CALL LIGHT. ALL SAFETY MEASURES IMPLEMENTED. BED IN LOW POSITION, BED WHEELS ON LOCKED AND CALL LIGHT WITHIN REACH.
--- NOTE | 2021-12-16 00:51 | NUR ---
NOTIFIED DR. CONTRERAS REGARDING PAIN MEDICATION FOR THE PT WHO REFUSED NORCO AND ASKING IF HE CAN ORDER MORPHINE. DR. CONTRERAS REPLIED "NO MORPHINE. NO DRUG DISPENSARY HERE". WILL TELL AND EDUCATE THE PT TO TAKE NORCO INSTEAD OF MORPHINE TO LESSEN THE PAIN.
--- NOTE | 2021-12-16 00:55 | NUR ---
PT WAS EDUCATED TO TAKE NORCO INSTEAD OF MORPHINE BUT THE PT STILL REFUSED.
--- NOTE | 2021-12-16 01:03 | NUR ---
PT WAS GIVEN ZOFRAN PER PT REQUEST. PT TOLERATED IT WELL. ALL SAFETY MEASURES IMPLEMENTED. BED WHEELS ON LOCKED, BED IN LOW POSITION AND CALL LIGHT WITHIN REACH.
--- NOTE | 2021-12-16 01:15 | NUR ---
NOTIFIED DR. CONTRERAS IF HE CAN ORDER ACCUCHECK ACHS BECAUSE PT HAS HISTORY OF DM AND LATEST BLOOD GLUCOSE IN ER BEFORE TRANSFER HERE IN [facility] IS 335. DR CONTRERAS REPLIED AND SAID, "PAGE IN THE MORNING". WILL ENDORSE IT TO THE MORNING SHIFT NURSE.
--- NOTE | 2021-12-16 03:25 | NUR ---
PT IS SLEEPING. CHEST RISE AND FALL SYMMETRICALLY NOTED. RESPIRATION IS EVEN AND UNLABORED. NO S/S OF RESPIRATORY DISTRESS. ALL SAFETY MEASURES IMPLEMENTED. BED WHEELS ON LOCKED, BED IN LOW POSITION AND CALL LIGHT WITHIN REACH.
[2021-12-16 04:00] VITALS: BP 123/84
[2021-12-16 06:01] LABS: BASOPHILS # (AUTO) 0.1 K/uL (0.00-0.22); BASOPHILS % (AUTO) 1.4 % (0.0-2.0); EOSINOPHILS # (AUTO) 0.1 K/uL (0-0.4); EOSINOPHILS % (AUTO) 2.7 % (0.0-4.0); HEMATOCRIT 39.5 % (36-48); HEMOGLOBIN 12.7 g/dL (12.0-16.0); LYMPHOCYTES # (AUTO) 1.7 K/uL (2.5-16.5); LYMPHOCYTES % (AUTO) 33.1 % (20.5-51.1); MEAN CORPUSCULAR HEMOGLOBIN 24 pg (27-31); MEAN CORPUSCULAR HGB CONC 32 g/dL (33-37); MEAN CORPUSCULAR VOLUME 74.5 fL (80-94); MONOCYTES # (AUTO) 0.4 K/uL (0.8-1.0); MONOCYTES % (AUTO) 8.1 % (1.7-9.3); NEUTROPHILS # (AUTO) 2.8 K/uL (1.8-7.7); NEUTROPHILS % (AUTO) 54.7 % (42.2-75.2); PLATELET COUNT (AUTO) 189 K/uL (140-450); RED CELL DISTRIBUTION WIDTH 18.7 % (11.6-13.7); WHITE BLOOD COUNT (AUTO) 5.1 K/uL (4.8-10.8)
[2021-12-16 06:43] LABS: ALBUMIN 2.6 g/dL (3.4-5.0); ANION GAP 11.8 (8-16); CARBON DIOXIDE 27.1 mmol/L (21-32); CREATININE 1.4 mg/dL (0.6-1.3); MAGNESIUM 1.8 mg/dL (1.8-2.4); POTASSIUM 4.9 mmol/L (3.5-5.1); TOTAL BILIRUBIN 0.2 mg/dL (0.0-1.0)
--- NOTE | 2021-12-16 06:45 | NUR ---
RECEIVED CALL FROM LAB. PT BLOOD GLUCOSE IS 407. NOTIFIED DR. CONTRERAS FOR ORDER. WILL WAIT FOR ORDER.
[2021-12-16 08:00] VITALS: BP 138/97
[2021-12-16] MEDS: BLOOD GLUCOSE MONITORING 1 DEV DEV FS SCH ×4 (08:04→21:36)
[2021-12-16] MEDS: BUDESONIDE 0.5 MG/2 ML NEBU INH SCH ×2 (08:05→20:19)
--- NOTE | 2021-12-16 08:06 | NUR ---
PT IS STABLE. ENDORSE PT TO MORNING SHIFT NURSE FOR CONTINUITY OF CARE.
[2021-12-16] MEDS: carvediloL 12.5 MG TAB PO SCH ×3 (09:00→21:00)
[2021-12-16] MEDS ORDERED: SPIRONOLACTONE 50 MG TAB PO SCH (09:00)
[2021-12-16] MEDS: DOCUSATE SODIUM 100 MG GELCAP PO SCH (09:00)
--- NOTE | 2021-12-16 09:14 | NUR ---
PATIENT HAS BEEN SCREENED AND CATEGORIZED MODERATE NUTRITION RISK. PATIENT WILL BE SEEN WITHIN 3-5 DAYS OF ADMISSION. 12/18/21-12/20/21 REVIEWED BY DAVIDSON PETE [address]
[2021-12-16] MEDS: lisinopriL 5 MG TAB PO SCH (09:18)
[2021-12-16] MEDS: hydrALAZINE 10 MG TAB PO SCH ×3 (09:18→18:00)
[2021-12-16] MEDS: ASPIRIN 81 MG TAB.CHEW PO SCH (09:18)
[2021-12-16] MEDS: SPIRONOLACTONE 25 MG TAB PO SCH (09:19)
[2021-12-16] MEDS: INSULIN LISPRO SLIDING SCALE 100 UNITS/ML VIAL SUBQ PRN ×4 (09:20→21:40)
--- NOTE | 2021-12-16 09:20 | NUR ---
ALL SCHEDULED MEDS GIVEN. PT IS STABLE. NO DISTRESS NOTED. WILL CONTINUE TO MONITOR.
[2021-12-16] MEDS: APIXABAN 2.5 MG TAB PO SCH ×2 (09:27→21:41)
[2021-12-16 12:00] VITALS: BP 115/81
--- NOTE | 2021-12-16 12:23 | NUR ---
BS CHECK WAS 440. NOTIFIED AND RECEIVED NEW ORDERS TO ADMINISTER 16 UNITS OF INSULIN.
[2021-12-16] MEDS ORDERED: NITROGLYCERIN 0.4 MG TAB SL PRN (14:55)
--- NOTE | 2021-12-16 15:08 | NUR ---
DC PLANNING SW MET WITH PATIENT AT BEDSIDE TO GATHERING COLLATERAL INFORMATION. PATIENT REPORTS LIVING AT HOME W/ FAMILY AT THE ADDRESS ON FILE WITH HER TWO ADULT CHILDREN, TWO GRANDCHILDREN AND TWO GREAT NEPHEWS. PATIENT REPORTS EMERGENCY CONTACT AND MEDICAL DECISION MAKER ESTEFANIA BOWENS [phone]. PATIENT DECLINED A.D PACKET OFFERED BY TAMMY, AND REPORTED HAVING A DPOA IN PLACE WITH HER CHILDREN. PATIENT REPORTS MEETING WITH PCP REGULARLY, REPORTS LAST FOLLOW UP "A FEW MONTHS AGO", WITH DR KING. PATIENT REPORTED BEING COMPLAINT WITH MEDICATIONS. PATIENT DENIES BARRIERS IN ACCESSING MEDICATIONS AND REPORTS RECEIVING MEDICATIONS FROM [facility] [employer] [facility] IN [place], WHEN NEEDED . PATIENT REPORTS BEING AMBULATORY WITH DME ASSISTANCE. PATIENT REPORTS DME WALKER, WHEELCHAIR, BEDSIDE COMMODE, O2 AND GLUCOMETER. PATIENT REPORTS THAT SON CLARE BANKS IS HER SS CAREGIVER HER DAUGHTER JUST RECENTLY MOVED TO [place]. PATIENT DENIES RECEIVING DIALYSIS AND REPORTS RECEIVING HOME HEALTH IN THE PAST (2019) BUT STRUGGLES TO REMEMBER NAME OF AGENCY. PATIENT REPORTS ADEQUATE FRIEND AND FAMILY SUPPORT AND REPORTS THAT HER FAMILY WILL PROVIDE TRANSPORTATION AND AID IN HER CARE IF REQUIRED. PATIENT REPORTS DC PLAN IS TO RETURN HOME WITH ONE OF HER CHILDREN PROVIDING TRANSPORTATION AND AIDING IN REQUIRED CARE IF NEEDED.
[2021-12-16 16:00] VITALS: BP 118/74
--- NOTE | 2021-12-16 18:06 | NUR ---
BS CHECK WAS 205. ADMINISTERED 4 UNITS OF INSULIN SQ PER MD ORDERED.
--- NOTE | 2021-12-16 19:10 | NUR ---
PT RECEIVED FROM DAY SHIFT RT RESTING COMFORTABLY IN BED ON ROOM AIR SATIN 95%. PT WAS GIVEN TX AND TOLERATED IT WELL.
--- NOTE | 2021-12-16 19:45 | NUR ---
RECEIVED REPORT FROM DAYSHIFT NURSE. NO S/S OF DISTRESS. PT STATED PAIN 01/03, INFORMED OF PT REQUEST FOR MEDICATION. PT REFUSED ORDERED PRN FOR PAIN STATING "I DON'T WANT A PILL". CALL LIGHT IN REACH. ALL SAFETY MEASURES IN PLACE. PURWICK CONNECTED TO SUCTION AND WORKING.
--- NOTE | 2021-12-16 19:49 | NUR ---
ENDORSED TO PROPOSAL ENGINEER NURSE FOR CONTINUITY OF CARE. PT IS STABLE.
[2021-12-16 20:00] VITALS: BP 125/80
[2021-12-16] MEDS ORDERED: ATORVASTATIN 20 MG TAB PO SCH (21:00)
--- NOTE | 2021-12-16 21:19 | NUR ---
PT REFUSED COREG ORDERED. DAYSHIFT RN ENDORSED MEDICATION WAS REFUSED ALSO, MD WAS NOTIFIED PER DONALDO RN.
[2021-12-16] MEDS: INSULIN LANTUS 100 UNITS/ML 10 ML VIAL SUBQ SCH (21:40)
[2021-12-17] VITALS: BP 149/88
--- NOTE | 2021-12-17 00:20 | NUR ---
PT RESTING IN BED, EYES CLOSED. NO S/S OF DISTRESS. PUREWICK IN PLACE AND SUCTIONING. CALL LIGHT IN REACH. ALL SAFETY MEASURES IN PLACE
[2021-12-17 04:00] VITALS: BP 125/82
--- NOTE | 2021-12-17 04:00 | NUR ---
PT RESTING IN BED, EYES CLOSED. NO S/S OF DISTRESS. CALL LIGHT IN REACH. ALL SAFETY MEASURES IN PLACE
[2021-12-17 05:46] LABS: BASOPHILS # (AUTO) 0.1 K/uL (0.00-0.22); BASOPHILS % (AUTO) 1.2 % (0.0-2.0); EOSINOPHILS # (AUTO) 0.2 K/uL (0-0.4); EOSINOPHILS % (AUTO) 5.2 % (0.0-4.0); HEMATOCRIT 42.1 % (36-48); HEMOGLOBIN 13.5 g/dL (12.0-16.0); LYMPHOCYTES # (AUTO) 1.6 K/uL (2.5-16.5); LYMPHOCYTES % (AUTO) 33.6 % (20.5-51.1); MEAN CORPUSCULAR HEMOGLOBIN 24 pg (27-31); MEAN CORPUSCULAR HGB CONC 32 g/dL (33-37); MEAN CORPUSCULAR VOLUME 74.3 fL (80-94); MONOCYTES # (AUTO) 0.3 K/uL (0.8-1.0); NEUTROPHILS # (AUTO) 2.5 K/uL (1.8-7.7); PLATELET COUNT (AUTO) 180 K/uL (140-450); RED BLOOD CELL COUNT(AUTO) 5.67 MIL/uL (4.20-5.40); WHITE BLOOD COUNT (AUTO) 4.8 K/uL (4.8-10.8)
[2021-12-17 06:15] LABS: ALBUMIN 2.5 g/dL (3.4-5.0); ANION GAP 11.7 (8-16); CREATININE 1.3 mg/dL (0.6-1.3); MAGNESIUM 1.8 mg/dL (1.8-2.4); POTASSIUM 4.7 mmol/L (3.5-5.1); TOTAL BILIRUBIN 0.2 mg/dL (0.0-1.0)
[2021-12-17] MEDS: BLOOD GLUCOSE MONITORING 1 DEV DEV FS SCH ×2 (06:44→12:14)
[2021-12-17] MEDS: INSULIN LISPRO SLIDING SCALE 100 UNITS/ML VIAL SUBQ PRN ×2 (06:44→12:16)
[2021-12-17] MEDS: BUDESONIDE 0.5 MG/2 ML NEBU INH SCH (07:30)
--- NOTE | 2021-12-17 07:37 | NUR ---
ENDORSED PT TO DAYSHIFT NURSE. NO S/S OF DISTRESS. CALL LIGHT IN REACH. ALL SAFETY MEASURES IN PLACE
--- NOTE | 2021-12-17 07:45 | NUR ---
RT NOTES WENT TO SEE PT FOR HER TX. PT REFUSED AND STATED " I DON'T WANT MY TX IT MAKES MY SUGAR GO UP" PT ALSO STATED SHE DID NOT NEED IT HER BREATHING WAS FINE AND RT ASSESSED PT NO SIGN OF DISTRESS NOTED. HR 84 96% .
[2021-12-17 08:00] VITALS: BP 146/92
[2021-12-17] MEDS: carvediloL 12.5 MG TAB PO SCH (09:00)
[2021-12-17] MEDS: DOCUSATE SODIUM 100 MG GELCAP PO SCH (09:00)
[2021-12-17] MEDS: SPIRONOLACTONE 25 MG TAB PO SCH (09:42)
[2021-12-17] MEDS: lisinopriL 5 MG TAB PO SCH (09:43)
[2021-12-17] MEDS: hydrALAZINE 10 MG TAB PO SCH ×2 (09:43→12:23)
[2021-12-17] MEDS: ASPIRIN 81 MG TAB.CHEW PO SCH (09:43)
[2021-12-17] MEDS: APIXABAN 2.5 MG TAB PO SCH (09:47)
--- NOTE | 2021-12-17 09:50 | NUR ---
ALL SCHEDULED MEDS GIVEN. PT IS STABLE. NO DISTRESS NOTED. WILL CONTINUE TO MONITOR.
[2021-12-17 12:00] VITALS: BP 136/89
--- NOTE | 2021-12-17 12:16 | NUR ---
BS CHECK WAS 277. ADMINISTERED 6 UNITS OF INSULIN SQ PER MD ORDERED.
[2021-12-17 15:07] VITALS: BP 136/89
--- NOTE | 2021-12-17 15:30 | NUR ---
ENDORSED DISCHARGE INSTRUCTIONS TO PATIENT. PT VERBALIZED UNDERSTANDING AND SIGNED DISCHARGE FORMS. REMOVED IV ACCESS. PT TOLERATED PROCEDURE
--- NOTE | 2021-12-17 15:36 | NUR ---
PATIENT DISCHARGED OFF THE UNIT. PT WAS ESCORTED TO FRONT LOBBY. PT WAS STABLE PRIOR TO DISCHARGE.
== END 2021-12-17 16:08 | disposition home or self-care (01) | DRG 194 ==
LOC: MED 20:14 → MTU 22:28 → MMU 23:18
PROVIDERS: ADMIT Hospitalist; ATTEND Hospitalist
DX: I11.0 Hypertensive heart disease with heart failure (principal); I21.A1 Myocardial infarction type 2; I27.20 Pulmonary hypertension, unspecified; N17.9 Acute kidney failure, unspecified; R65.10 Systemic inflammatory response syndrome (SIRS) of non-infectious origin without acute organ dysfunction; M94.0 Chondrocostal junction syndrome [Tietze]; I50.21 Acute systolic (congestive) heart failure; E11.22 Type 2 diabetes mellitus with diabetic chronic kidney disease; E11.65 Type 2 diabetes mellitus with hyperglycemia; Z20.822 Contact with and (suspected) exposure to COVID-19; E66.01 Morbid (severe) obesity due to excess calories; N18.9 Chronic kidney disease, unspecified; I20.9 Angina pectoris, unspecified; J44.9 Chronic obstructive pulmonary disease, unspecified; K21.9 Gastro-esophageal reflux disease without esophagitis; Z79.4 Long term (current) use of insulin; Z98.51 Tubal ligation status; Z79.899 Other long term (current) drug therapy; Z88.8 Allergy status to other drugs, medicaments and biological substances; Z79.82 Long term (current) use of aspirin; Z68.41 Body mass index [BMI] 40.0-44.9, adult
CPT/HCPCS: 36415; 71045; 80053; 82948; 83735; 83880; 84484; 85025; 87081; 93005; 94640; 96361; 96372; 96374; 96375; 99285; J1815; J2270; J2405; J7626; Q0092

== ENCOUNTER 2022-02-27 17:31 | Observation (INO) | payer MEDICAID ==
[~2022-02-27] VITALS: Ht 172.7 cm; Wt 120.7 kg
[2022-02-27 17:37] VITALS: BP 172/83
[2022-02-27] MEDS ORDERED: ALBUTEROL SULFATE/IPRATROPIU 3 ML SOL IH ONE (17:40)
--- NOTE | 2022-02-27 17:56 | NUR ---
pt in room 1, recently dc'd from [place] dx [place], receiving duoneb at this time, better about sob
[2022-02-27 17:57] LABS: BASOPHILS # (AUTO) 0.1 K/uL (0.00-0.22); BASOPHILS % (AUTO) 1.3 % (0.0-2.0); EOSINOPHILS # (AUTO) 0.2 K/uL (0-0.4); EOSINOPHILS % (AUTO) 2.5 % (0.0-4.0); HEMATOCRIT 37.1 % (36-48); HEMOGLOBIN 12.1 g/dL (12.0-16.0); LYMPHOCYTES # (AUTO) 2.3 K/uL (2.5-16.5); MEAN CORPUSCULAR HEMOGLOBIN 26 pg (27-31); MEAN CORPUSCULAR HGB CONC 33 g/dL (33-37); MEAN CORPUSCULAR VOLUME 78.2 fL (80-94); MONOCYTES # (AUTO) 0.4 K/uL (0.8-1.0); MONOCYTES % (AUTO) 6.7 % (1.7-9.3); NEUTROPHILS # (AUTO) 3.7 K/uL (1.8-7.7); NEUTROPHILS % (AUTO) 55.5 % (42.2-75.2); PLATELET COUNT (AUTO) 252 K/uL (140-450); RED BLOOD CELL COUNT(AUTO) 4.74 MIL/uL (4.20-5.40); RED CELL DISTRIBUTION WIDTH 17.5 % (11.6-13.7); WHITE BLOOD COUNT (AUTO) 6.6 K/uL (4.8-10.8)
[2022-02-27] MEDS ORDERED: MORPHINE SULFATE 2 MG/ML SYR IM STA (18:26)
[2022-02-27] MEDS ORDERED: ASPIRIN 81 MG TAB.CHEW PO ONE (18:30)
[2022-02-27 18:38] LABS: ALBUMIN 2.7 g/dL (3.4-5.0); ANION GAP 12.3 (8-16); CARBON DIOXIDE 30.6 mmol/L (21-32); CREATININE 1.3 mg/dL (0.6-1.3); POTASSIUM 3.9 mmol/L (3.5-5.1); TOTAL BILIRUBIN 0.2 mg/dL (0.0-1.0)
[2022-02-27] MEDS ORDERED: MORPHINE SULFATE 2 MG/ML SYR IVP STA (18:41)
--- NOTE | 2022-02-27 18:46 | NUR ---
medicated for angelo legs pain, back pain 11/03, sr on cm, o2 sat 99% 4 l/m via nc, sr up times 2
--- NOTE | 2022-02-27 19:20 | NUR ---
report to overnight babysitter nurse, BELINDA Reyes
[2022-02-27] MEDS ORDERED: FUROSEMIDE 40 MG/4 ML VIAL IVP SCH (19:40)
[2022-02-27] MEDS ORDERED: HYDROcodone/APAP 5/325 MG 1 TAB TAB PO PRN (21:40)
[2022-02-27] MEDS ORDERED: ACETAMINOPHEN 325 MG TAB PO PRN (21:40)
[2022-02-27] MEDS ORDERED: ONDANSETRON 4 MG/2 ML VIAL IVP PRN (21:40)
[2022-02-27] MEDS ORDERED: MAGNESIUM OXIDE 400 MG TAB PO PRN (21:40)
[2022-02-27] MEDS ORDERED: POTASSIUM CHLORIDE 10 MEQ TABER PO PRN (21:40)
[2022-02-28] MEDS: MORPHINE SULFATE 2 MG/ML SYR IVP PRN ×4 (01:00→20:09)
[2022-02-28 07:56] LABS: BASOPHILS % (AUTO) 0.8 % (0.0-2.0); EOSINOPHILS # (AUTO) 0.1 K/uL (0-0.4); EOSINOPHILS % (AUTO) 2.3 % (0.0-4.0); HEMATOCRIT 34.5 % (36-48); HEMOGLOBIN 11.1 g/dL (12.0-16.0); LYMPHOCYTES # (AUTO) 1.4 K/uL (2.5-16.5); LYMPHOCYTES % (AUTO) 27.4 % (20.5-51.1); MEAN CORPUSCULAR HEMOGLOBIN 25 pg (27-31); MEAN CORPUSCULAR HGB CONC 32 g/dL (33-37); MEAN CORPUSCULAR VOLUME 78.3 fL (80-94); MONOCYTES # (AUTO) 0.4 K/uL (0.8-1.0); MONOCYTES % (AUTO) 8.5 % (1.7-9.3); NEUTROPHILS # (AUTO) 3.2 K/uL (1.8-7.7); PLATELET COUNT (AUTO) 238 K/uL (140-450); RED BLOOD CELL COUNT(AUTO) 4.41 MIL/uL (4.20-5.40); RED CELL DISTRIBUTION WIDTH 16.9 % (11.6-13.7); WHITE BLOOD COUNT (AUTO) 5.3 K/uL (4.8-10.8)
[2022-02-28 08:01] LABS: ANION GAP 9.4 (8-16); CARBON DIOXIDE 34.9 mmol/L (21-32); CREATININE 1.2 mg/dL (0.6-1.3); POTASSIUM 4.3 mmol/L (3.5-5.1)
[2022-02-28 08:05] LABS: MAGNESIUM 1.4 mg/dL (1.8-2.4); PHOSPHORUS 4.9 mg/dL (2.5-4.9)
[2022-02-28] MEDS ORDERED: ASPIRIN 81 MG TAB.CHEW PO SCH (09:00)
[2022-02-28] MEDS ORDERED: FUROSEMIDE 40 MG/4 ML VIAL IVP SCH (09:00)
[2022-02-28] MEDS: DOCUSATE SODIUM 100 MG GELCAP PO SCH (09:36)
[2022-02-28] MEDS: FUROSEMIDE 40 MG/4 ML VIAL IVP SCH (17:00)
[2022-02-28 17:07] LABS: APPEARANCE,URINE CLEAR (CLEAR); BILIRUBIN,URINE NEGATIVE (NEGATIVE); BLOOD, URINE NEGATIVE (NEGATIVE); COLOR,URINE YELLOW (YELLOW); LEUKOCYTE ESTERASE ,URINE NEGATIVE (NEGATIVE); NITRITE, URINE NEGATIVE (NEGATIVE); UGLUCOSE 3+ (NEGATIVE)
--- NOTE | 2022-02-28 17:23 | NUR ---
Report given to receiving RN. VSS. Pt aware and agreeable to admission. Pt has all belongings. Transported via gurney.
--- NOTE | 2022-02-28 19:10 | NUR ---
ADMISSION OF A 56 YEAR OLD FEMALE UNDER THE CARE OF DOCTOR RUDD FOR CHF EXACERBATION TO TELEMETRY BED 120A.
[2022-02-28 20:00] VITALS: BP 145/90
--- NOTE | 2022-02-28 20:00 | NUR ---
C/O PAIN SHE RATES 8/ 10 - WILL MEDICATE , BP 150/90 , HR 92 , O2 SAT 100 % , ON TELE MONITOR .
[2022-02-28] MEDS ORDERED: ATORVASTATIN 20 MG TAB PO SCH (21:00)
[2022-02-28] MEDS ORDERED: INSULIN LANTUS 100 UNITS/ML 10 ML VIAL SUBQ SCH (21:00)
--- NOTE | 2022-02-28 22:45 | NUR ---
BP RE CHECK 145/95 , HR 90 , O2 SAT 100 5 - WILL GIVE SCHED MEDS .
[2022-02-28] MEDS: carvediloL 12.5 MG TAB PO SCH (22:48)
[2022-02-28] MEDS: APIXABAN 2.5 MG TAB PO SCH (22:48)
--- NOTE | 2022-02-28 23:00 | NUR ---
REFUSED LANTUS , PER PT'S REQUEST SHE WANTS LANTUS TO BE SCHED . IN AM - WILL ENDORSE .
[2022-03-01] VITALS: BP 147/88
--- NOTE | 2022-03-01 | NUR ---
TROPONOIN TRENDING UP - ON TITI - RELAYED TO DR. TRUONG - NO FURTHER ORDERS MADE , WILL CONT. TO MONITOR . Addendum: 03/01/22 at 0338 by Lizeth Barnhart RN THE WORD TROPONOIN IS AN ERROR ENTRY , INSTEAD OF TROPONIN - ENDY
[2022-03-01 04:00] VITALS: BP 150/80
--- NOTE | 2022-03-01 04:00 | NUR ---
ROUNDS , NO S/SX OF ACUTE DISTRESS NOTED , WILL CONT. TO MONITOR
[2022-03-01 05:11] LABS: BASOPHILS % (AUTO) 0.8 % (0.0-2.0); EOSINOPHILS # (AUTO) 0.2 K/uL (0-0.4); EOSINOPHILS % (AUTO) 2.7 % (0.0-4.0); HEMATOCRIT 35.7 % (36-48); HEMOGLOBIN 11.5 g/dL (12.0-16.0); MEAN CORPUSCULAR HEMOGLOBIN 25 pg (27-31); MEAN CORPUSCULAR HGB CONC 32 g/dL (33-37); MONOCYTES # (AUTO) 0.3 K/uL (0.8-1.0); MONOCYTES % (AUTO) 5.5 % (1.7-9.3); NEUTROPHILS # (AUTO) 4.5 K/uL (1.8-7.7); PLATELET COUNT (AUTO) 226 K/uL (140-450); RED BLOOD CELL COUNT(AUTO) 4.58 MIL/uL (4.20-5.40); RED CELL DISTRIBUTION WIDTH 17.1 % (11.6-13.7)
[2022-03-01 05:27] LABS: CARBON DIOXIDE 35.5 mmol/L (21-32); CREATININE 1.2 mg/dL (0.6-1.3); POTASSIUM 4.5 mmol/L (3.5-5.1)
[2022-03-01 05:32] LABS: MAGNESIUM 1.5 mg/dL (1.8-2.4); PHOSPHORUS 3.9 mg/dL (2.5-4.9)
[2022-03-01] MEDS: MORPHINE SULFATE 2 MG/ML SYR IVP PRN (05:44)
--- NOTE | 2022-03-01 07:10 | NUR ---
PATIENT HAS BEEN SCREENED AND CATEGORIZED MODERATE NUTRITION RISK. PATIENT WILL BE SEEN WITHIN 3-5 DAYS OF ADMISSION. 03/02/2212 REFERRAL RECEIVED NOT APPLICABLE [address]
--- NOTE | 2022-03-01 07:20 | NUR ---
ENDORSED FOR COHNT. OF CARE , AWAKE , CALL LIGHT WITHIN REACH Addendum: 03/01/22 at 0842 by Lizeth Barnhart RN ENDORSE TO BELINDA JALLOH - RELAY TO THE LATEST MAGNESIUM LEVEL , BELINDA JALLOH VERBALIZES UNDERSTANDING .
[2022-03-01] MEDS ORDERED: lisinopriL 5 MG TAB PO SCH (09:00)
[2022-03-01] MEDS: carvediloL 12.5 MG TAB PO SCH (09:00)
[2022-03-01] MEDS ORDERED: ASPIRIN 81 MG TAB.CHEW PO SCH (09:00)
[2022-03-01] MEDS: DOCUSATE SODIUM 100 MG GELCAP PO SCH (09:00)
[2022-03-01] MEDS: APIXABAN 2.5 MG TAB PO SCH (09:31)
[2022-03-01 09:39] VITALS: BP 144/98
[2022-03-01] MEDS: FUROSEMIDE 40 MG/4 ML VIAL IVP SCH (09:43)
--- NOTE | 2022-03-01 09:57 | NUR ---
DIETARY CONSULT NEEDS MADE KNOWN TO KITCHEN STAFF PATIENT REQUEST FOR DIET ITEMS OUTSIDE OF CARDIAC DIET, SAUSAGE FOR EXAMPLE.
[2022-03-01 12:00] VITALS: BP 148/97
--- NOTE | 2022-03-01 12:11 | NUR ---
DC PLANNING PT READMISSION FROM 02/08. PT REPORTS NO CHANGES SINCE LAST ADMISSION. TAMMY MET WITH PATIENT AT BEDSIDE TO COMPLETE ASSESSMENT. PATIENT REPORTS LIVING IN A SINGLE STORY HOME W/ FAMILY (TWO ADULT CHILDREN, TWO GRANDCHILDREN AND TWO GREAT NEPHEWS) AT THE ADDRESS ON FILE. PT IDENTIFIES EMERGENCY CONTACT AND MEDICAL DECISION MAKER ESTEFANIA BOWENS, DAUGHTER, [phone] BRENDEN SHELL, DAUGHTER, AND CLARE BANKS, SON/SS CAREGIVER, . PATIENT DECLINED A.D PACKET OFFERED BY TAMMY, AND REPORTED HAVING A DPOA IN PLACE WITH HER CHILDREN. PATIENT REPORTS MEETING WITH PCP REGULARLY, LAST VISIT; ONE MONTH AGO. SPOKE TO PT ABOUT IMPORTANCE OF FOLLOW UP CARE, PT RECEPTIVE AND DECLINED FOR TAMMY TO SCHEDULE F/U SHE HAS UPCOMING APPT WITH BOTH PCP AND MEDICAL DOSIMETRIST. PATIENT REPORTED BEING COMPLAINT WITH MEDICATIONS. PATIENT DENIES BARRIERS IN ACCESSING MEDICATIONS AND REPORTS RECEIVING MEDICATIONS FROM [facility] ON [facility] IN [place], WHEN NEEDED . PATIENT REPORTS BEING AMBULATORY WITH DME ASSISTANCE. PATIENT REPORTS DME WALKER, WHEELCHAIR, BEDSIDE COMMODE, O2 AND GLUCOMETER. PATIENT REPORTS THAT SON CLARE BANKS IS HER SS CAREGIVER HER DAUGHTER JUST RECENTLY MOVED TO [place]. PATIENT DENIES RECEIVING DIALYSIS AND REPORTS RECEIVING HOME HEALTH IN THE PAST (2019) BUT STRUGGLED TO REMEMBER NAME OF AGENCY. PATIENT REPORTS ADEQUATE FRIEND AND FAMILY SUPPORT AND REPORTS THAT HER FAMILY WILL PROVIDE TRANSPORTATION AND AID IN HER CARE IF REQUIRED. PATIENT REPORTS DC PLAN IS TO RETURN HOME WITH HER CHILDREN PROVIDING TRANSPORTATION AND AIDING IN REQUIRED CARE, IF NEEDED. Addendum: 03/01/22 at 1213 by Derian SALINAS Amended: Links added.
[2022-03-01 12:47] VITALS: BP 148/97
--- NOTE | 2022-03-01 13:35 | NUR ---
PATIENT DISCHARGE TO HOME WITH A COPY OF DISCHARGE INSTRUCTIONS AND ALL BELONGINGS. INTACT 22 GAUGE CATHETER TIP OF IV SITE REMOVAL OF NOTE. PATIENT DEPARTURE IN PRIVATE AUTO WITH SON PERFORMING ARTS ROAD MANAGER.
== END 2022-03-01 13:47 | disposition home or self-care (01) ==
LOC: MED 17:31 → MTU 21:53
PROVIDERS: ADMIT Hospitalist; ATTEND Hospitalist
DX: I11.0 Hypertensive heart disease with heart failure (principal); Z20.822 Contact with and (suspected) exposure to COVID-19; I50.33 Acute on chronic diastolic (congestive) heart failure; I21.4 Non-ST elevation (NSTEMI) myocardial infarction; D64.9 Anemia, unspecified; E83.42 Hypomagnesemia; E88.09 Other disorders of plasma-protein metabolism, not elsewhere classified; J44.9 Chronic obstructive pulmonary disease, unspecified; Z79.899 Other long term (current) drug therapy
CPT/HCPCS: 36415; 36600; 71045; 80048; 80053; 81003; 82803; 82948; 83735; 83880; 84100; 84484; 85025; 87426; 94640; 94760; 96372; 96374; 96375; 96376; 99285; C8929; G0378; J1644; J1815; J1940; J2270; J2405; Q0092

== ENCOUNTER 2022-03-20 19:56 | Observation (INO) | payer MEDICAID ==
[~2022-03-20] VITALS: Ht 172.7 cm; Wt 121.6 kg
[~2022-03-20 19:56] MED LIST changes: -DIPH25TA53 PO
[2022-03-20 20:00] VITALS: BP 180/120
--- NOTE | 2022-03-20 20:00 | NUR ---
PT DILLON ALS. TAKEN TO BED 3
--- NOTE | 2022-03-20 20:22 | NUR ---
Patient lying in bed, A/Ox4, chest rise and fall symmetrical, no s/s of distress. Addendum: 03/21/22 at 0651 by [id number] Patient lying in bed, A/Ox4, chest rise and fall symmetrical, no s/s of distress, patient on monitor.
[2022-03-20] MEDS ORDERED: METOPROLOL 5 MG/5 ML VIAL IVP ONE (20:55)
[2022-03-20 21:23] LABS: BASOPHILS # (AUTO) 0.1 K/uL (0.00-0.22); BASOPHILS % (AUTO) 1.3 % (0.0-2.0); EOSINOPHILS # (AUTO) 0.2 K/uL (0-0.4); EOSINOPHILS % (AUTO) 3.7 % (0.0-4.0); HEMATOCRIT 37.3 % (36-48); LYMPHOCYTES # (AUTO) 1.3 K/uL (2.5-16.5); LYMPHOCYTES % (AUTO) 27.1 % (20.5-51.1); MEAN CORPUSCULAR HEMOGLOBIN 26 pg (27-31); MEAN CORPUSCULAR HGB CONC 32 g/dL (33-37); MEAN CORPUSCULAR VOLUME 81.1 fL (80-94); MONOCYTES # (AUTO) 0.5 K/uL (0.8-1.0); MONOCYTES % (AUTO) 9.1 % (1.7-9.3); NEUTROPHILS # (AUTO) 2.9 K/uL (1.8-7.7); NEUTROPHILS % (AUTO) 58.8 % (42.2-75.2); PLATELET COUNT (AUTO) 189 K/uL (140-450); RED BLOOD CELL COUNT(AUTO) 4.59 MIL/uL (4.20-5.40); RED CELL DISTRIBUTION WIDTH 16.7 % (11.6-13.7)
[2022-03-20] MEDS ORDERED: ASPIRIN 325 MG TAB PO ONE (21:35)
[2022-03-20] MEDS ORDERED: NITROGLYCERIN 2% 1 GM PKT TP ONE (21:35)
[2022-03-20] MEDS ORDERED: MORPHINE SULFATE 4 MG/ML SYR IVP ONE (21:35)
[2022-03-20 21:50] LABS: ALBUMIN 2.8 g/dL (3.4-5.0); ANION GAP 11.5 (8-16); CARBON DIOXIDE 31.4 mmol/L (21-32); CREATININE 1.7 mg/dL (0.6-1.3); POTASSIUM 3.9 mmol/L (3.5-5.1); TOTAL BILIRUBIN 0.3 mg/dL (0.0-1.0)
[2022-03-20] MEDS ORDERED: INSULIN REGULAR, HUMAN 100 UNIT/ML VIAL IVP ONE (22:05)
--- NOTE | 2022-03-20 22:22 | NUR ---
Patient lying in bed, A/Ox4, chest rise and fall symmetrical, no s/s of distress. Addendum: 03/21/22 at 0651 by [email or web address] Patient lying in bed, A/Ox4, chest rise and fall symmetrical, no s/s of distress, patient on monitor.
--- NOTE | 2022-03-20 23:58 | NUR ---
Dr. Vu examining patient.
[2022-03-21] MEDS ORDERED: MORPHINE SULFATE 4 MG/ML SYR IVP ONE
--- NOTE | 2022-03-21 00:27 | NUR ---
Patient lying in bed, A/Ox4, chest rise and fall symmetrical, no s/s of distress. Addendum: 03/21/22 at 0651 by [id number] Patient lying in bed, A/Ox4, chest rise and fall symmetrical, no s/s of distress, patient on monitor.
[2022-03-21] MEDS ORDERED: MORPHINE SULFATE 4 MG/ML SYR IVP PRN (01:25)
[2022-03-21] MEDS ORDERED: MAGNESIUM OXIDE 400 MG TAB PO PRN (01:25)
[2022-03-21] MEDS ORDERED: KCL 20 MEQ/WATER INJ PREMIX 200 ML IV PRN (01:25)
[2022-03-21] MEDS ORDERED: ONDANSETRON 4 MG/2 ML VIAL IVP PRN (01:25)
[2022-03-21] MEDS ORDERED: ACETAMINOPHEN 325 MG TAB PO PRN (01:25)
[2022-03-21] MEDS ORDERED: HYDROcodone/APAP 5/325 MG 1 TAB TAB PO PRN (01:25)
[2022-03-21] MEDS ORDERED: MAG SULF 2000 MG/WATER PREMIX 50 ML IV PRN (01:25)
[2022-03-21] MEDS ORDERED: POTASSIUM CHLORIDE 10 MEQ TABER PO PRN (01:25)
--- NOTE | 2022-03-21 01:32 | NUR ---
Patient lying in bed, A/Ox4, chest rise and fall symmetrical, no s/s of distress. Addendum: 03/21/22 at 0651 by [id number] Patient lying in bed, A/Ox4, chest rise and fall symmetrical, no s/s of distress, patient on monitor.
[2022-03-21] MEDS ORDERED: INSULIN LISPRO SLIDING SCALE 100 UNITS/ML VIAL SUBQ PRN (01:35)
[2022-03-21] MEDS ORDERED: DEXTROSE 50% 50 ML SYR IVP PRN (01:35)
--- NOTE | 2022-03-21 02:55 | NUR ---
Patient lying in bed, A/Ox4, chest rise and fall symmetrical, no s/s of distress. Addendum: 03/21/22 at 0650 by [id number] Patient lying in bed, A/Ox4, chest rise and fall symmetrical, no s/s of distress, patient on monitor.
--- NOTE | 2022-03-21 04:42 | NUR ---
Patient lying in bed, A/Ox4, chest rise and fall symmetrical, no s/s of distress. Addendum: 03/21/22 at 0650 by [id number] Patient lying in bed, A/Ox4, chest rise and fall symmetrical, no s/s of distress, patient on monitor.
[2022-03-21 04:45] LABS: BARBITURATE, URINE NEGATIVE ng/ml (NEG <=200); BENZODIAZEPINE, URINE NEGATIVE ng/mL (NEG <=200); CANNABINOID, URINE NEGATIVE ng/mL (NEG <=50); COCAINE, URINE NEGATIVE ng/mL (NEG <=300); OPIATE, URINE POSITIVE ng/mL (NEG <=2000); PHENCYCLIDINE SCREEN,URINE NEGATIVE ng/mL (NEG <=25)
--- NOTE | 2022-03-21 06:55 | NUR ---
Patient lying in bed, A/Ox4, chest rise and fall symmetrical, no s/s of distress, patient on monitor.
[2022-03-21] MEDS ORDERED: BLOOD GLUCOSE MONITORING 1 DEV DEV FS SCH (07:30)
--- NOTE | 2022-03-21 07:31 | NUR ---
Change of shift report given to AM shift Nurse Rey TREVINO. AM shift Nurse Rey RN verbalized understanding of report, no further questions.
[2022-03-21] MEDS ORDERED: ATORVASTATIN 20 MG TAB PO SCH (09:00)
[2022-03-21] MEDS ORDERED: ASPIRIN 81 MG TAB.CHEW PO SCH (09:00)
[2022-03-21] MEDS ORDERED: INSULIN LANTUS 100 UNITS/ML 10 ML VIAL SUBQ SCH (09:00)
--- NOTE | 2022-03-21 09:30 | NUR ---
Pt placed on purewick.
[2022-03-21 10:08] LABS: ANION GAP 16.7 (8-16); CARBON DIOXIDE 27.6 mmol/L (21-32); CREATININE 1.7 mg/dL (0.6-1.3); POTASSIUM 4.3 mmol/L (3.5-5.1); TOTAL BILIRUBIN 0.3 mg/dL (0.0-1.0)
--- NOTE | 2022-03-21 10:15 | NUR ---
Urine output through purewick 500ml.
[2022-03-21 10:57] VITALS: BP 153/81
[2022-03-21 11:17] VITALS: BP 153/81
== END 2022-03-21 11:18 | disposition home or self-care (01) ==
LOC: MED 19:56 → MTU 03-21 01:29
PROVIDERS: ADMIT Hospitalist; ATTEND Hospitalist
DX: R07.89 Other chest pain (principal); Z20.822 Contact with and (suspected) exposure to COVID-19; F41.9 Anxiety disorder, unspecified; I25.119 Atherosclerotic heart disease of native coronary artery with unspecified angina pectoris; I42.8 Other cardiomyopathies; I48.91 Unspecified atrial fibrillation; I13.0 Hypertensive heart and chronic kidney disease with heart failure and stage 1 through stage 4 chronic kidney disease, or unspecified chronic kidney disease; E11.22 Type 2 diabetes mellitus with diabetic chronic kidney disease; N18.30 Chronic kidney disease, stage 3 unspecified; E78.5 Hyperlipidemia, unspecified; J44.9 Chronic obstructive pulmonary disease, unspecified; E66.01 Morbid (severe) obesity due to excess calories; I25.2 Old myocardial infarction; Z79.01 Long term (current) use of anticoagulants; Z86.718 Personal history of other venous thrombosis and embolism; Z79.899 Other long term (current) drug therapy
CPT/HCPCS: 36415; 71045; 80053; 80305; 83880; 84484; 85025; 85379; 87426; 93005; 96372; 96374; 96375; 96376; 99291; G0378; J1644; J1815; J2270; J2405; J3490; Q0092

== ENCOUNTER 2022-03-28 19:53 | Inpatient (IN) | payer MEDICAID ==
[~2022-03-28] VITALS: Ht 172.7 cm; Wt 121.6 kg
[2022-03-28 19:53] VITALS: BP 162/103
--- NOTE | 2022-03-28 19:57 | NUR ---
PT DILLON ALS. TAKEN TO BED 7
--- NOTE | 2022-03-28 19:58 | NUR ---
Dr. Yan examining patient.
[2022-03-28] MEDS ORDERED: MORPHINE SULFATE 5 MG/ML VIAL IM ONE (20:00)
--- NOTE | 2022-03-28 20:14 | NUR ---
Respiratory Therapist at bedside for respiratory intervention.
[2022-03-28] MEDS ORDERED: MORPHINE SULFATE 10 MG/ML VIAL ONE (20:17)
--- NOTE | 2022-03-28 20:25 | NUR ---
X-Ray at bedside.
--- NOTE | 2022-03-28 20:25 | NUR ---
pt caame is ith short of breath, sating at 97 %, sinus atrial tachy. pt is alert and oriented x4. X ray on the bed side
--- NOTE | 2022-03-28 20:27 | NUR ---
2014 ABG DRAWN ON ROOM AIR. POST ABG RESULTS PLACED PT ON 2LNC.
[2022-03-28 20:59] LABS: BASOPHILS % (AUTO) 0.7 % (0.0-2.0); EOSINOPHILS # (AUTO) 0.1 K/uL (0-0.4); EOSINOPHILS % (AUTO) 2.1 % (0.0-4.0); HEMOGLOBIN 11.7 g/dL (12.0-16.0); LYMPHOCYTES # (AUTO) 1.7 K/uL (2.5-16.5); LYMPHOCYTES % (AUTO) 33.5 % (20.5-51.1); MEAN CORPUSCULAR HEMOGLOBIN 26 pg (27-31); MEAN CORPUSCULAR HGB CONC 32 g/dL (33-37); MONOCYTES # (AUTO) 0.3 K/uL (0.8-1.0); MONOCYTES % (AUTO) 6.7 % (1.7-9.3); PLATELET COUNT (AUTO) 228 K/uL (140-450); RED BLOOD CELL COUNT(AUTO) 4.57 MIL/uL (4.20-5.40); RED CELL DISTRIBUTION WIDTH 16.7 % (11.6-13.7); WHITE BLOOD COUNT (AUTO) 5.2 K/uL (4.8-10.8)
[2022-03-28 21:21] LABS: ALBUMIN 2.8 g/dL (3.4-5.0); ANION GAP 12.6 (8-16); CARBON DIOXIDE 30.7 mmol/L (21-32); CREATININE 1.5 mg/dL (0.6-1.3); POTASSIUM 4.3 mmol/L (3.5-5.1); TOTAL BILIRUBIN 0.4 mg/dL (0.0-1.0)
[2022-03-28] MEDS ORDERED: HYDROcodone/APAP 5/325 MG 1 TAB TAB PO ONE (21:50)
[2022-03-28] MEDS ORDERED: FUROSEMIDE 40 MG/4 ML VIAL IVP SCH (22:15)
[2022-03-28] MEDS ORDERED: MORPHINE SULFATE 4 MG/ML SYR IVP ONE (22:15)
[2022-03-28] MEDS ORDERED: ASPIRIN 325 MG TAB PO ONE (22:15)
[2022-03-29] MEDS ORDERED: hydrALAZINE 20 MG/ML VIAL IVP ONE (03:05)
--- NOTE | 2022-03-29 07:30 | NUR ---
REPORT RECEIVED FROM DANK TREVINO. ASSUMED CARE AT THIS TIME
--- NOTE | 2022-03-29 07:45 | NUR ---
pt w/ new onset of chest pain. no admit orders. MD KING PAGED. PENDING CALLBACK
--- NOTE | 2022-03-29 08:09 | NUR ---
Patient will be admitted to care of MD KING. Admited to TELE . Will go to room 104B. Belongings list completed. Report to ABIGAIL TREVINO.
--- NOTE | 2022-03-29 09:23 | NUR ---
The patient's care was reviewed and supervised by Ashford 04 ED, RN.
[2022-03-29] MEDS ORDERED: CLONIDINE HYDROCHLORIDE 0.1 MG TAB PO PRN (10:30)
[2022-03-29] MEDS ORDERED: ALBUTEROL 0.083% 2.5 MG/3 ML NEBU INH PRN (10:30)
[2022-03-29] MEDS ORDERED: ACETAMINOPHEN 325 MG TAB PO PRN (10:30)
[2022-03-29] MEDS ORDERED: LORazepam 2 MG/ML VIAL IVP PRN (10:30)
[2022-03-29] MEDS ORDERED: NITROGLYCERIN 0.4 MG TAB SL PRN (10:30)
[2022-03-29] MEDS ORDERED: oxyCODONE 5 MG TAB PO PRN (10:30)
--- NOTE | 2022-03-29 10:39 | NUR ---
PATIENT HAS BEEN SCREENED AND CATEGORIZED MODERATE NUTRITION RISK. PATIENT WILL BE SEEN WITHIN 3-5 DAYS OF ADMISSION. REVIEWED BY DAVIDSON PETE RD
[2022-03-29] MEDS ORDERED: INSULIN REGULAR, HUMAN 100 UNIT/ML VIAL IVP SCH (11:04)
[2022-03-29] MEDS: BUMETANIDE 1 MG/4 ML VIAL IV SCH ×2 (11:19→21:50)
[2022-03-29] MEDS: ONDANSETRON 4 MG/2 ML VIAL IVP PRN (11:19)
[2022-03-29 12:00] VITALS: BP 155/91
[2022-03-29] MEDS ORDERED: DEXTROSE 50% 50 ML SYR IVP PRN (12:10)
[2022-03-29] MEDS: HYDROcodone/APAP 5/325 MG 1 TAB TAB PO PRN (12:11)
[2022-03-29] MEDS: INSULIN LISPRO SLIDING SCALE 100 UNITS/ML VIAL SUBQ PRN ×3 (12:35→22:00)
[2022-03-29] MEDS: hydrALAZINE 10 MG TAB PO SCH ×2 (14:42→17:56)
[2022-03-29] MEDS: MORPHINE SULFATE 2 MG/ML SYR IVP PRN ×2 (14:47→20:58)
[2022-03-29 16:00] VITALS: BP 149/98
[2022-03-29] MEDS: BLOOD GLUCOSE MONITORING 1 DEV DEV FS SCH ×2 (16:30→21:55)
--- NOTE | 2022-03-29 19:25 | NUR ---
RECD REPORT FROM AM NURSE, PATIENT RESTING IN BED, AWAKE, A/OX4. RESPIRATION EVEN AND UNLABORED. IV SALINE LOCK AT THE RIGHT AC G20, PATENT AND INTACT. WATCHING TV. ABLE TO VERBALIZED NEEDS. WITH PUREWICK ATTACHED TO SUCTION, DRAINING CLEAR YELLOW URINE. DENIES PAIN 0/10.
[2022-03-29] MEDS ORDERED: BUMETANIDE 1 MG TAB PO SCH (21:00)
[2022-03-29] MEDS: carvediloL 12.5 MG TAB PO SCH (21:00)
[2022-03-29] MEDS: INSULIN LANTUS 100 UNITS/ML 10 ML VIAL SUBQ SCH (21:00)
[2022-03-29] MEDS: APIXABAN 2.5 MG TAB PO SCH (21:20)
[2022-03-29] MEDS: ATORVASTATIN 20 MG TAB PO SCH (21:21)
--- NOTE | 2022-03-29 21:50 | NUR ---
REFUSED SNACK OF APPLE SAUCE. WANTS REGINA CRACKERS, GIVEN REQUESTED BY PATIENT.
--- NOTE | 2022-03-29 23:00 | NUR ---
CLEANSED PATIENT, WITH SOME URINE IN THE PADS. PUT BACK PUREWICK AND MADE COMFORTABLE IN BED WITH PILLOWS.
[2022-03-30 02:30] VITALS: BP 155/91
[2022-03-30] MEDS: MORPHINE SULFATE 2 MG/ML SYR IVP PRN ×4 (02:55→20:43)
[2022-03-30] MEDS: BLOOD GLUCOSE MONITORING 1 DEV DEV FS SCH ×4 (06:47→20:30)
[2022-03-30] MEDS: INSULIN LISPRO SLIDING SCALE 100 UNITS/ML VIAL SUBQ PRN ×4 (06:48→20:39)
[2022-03-30 07:38] LABS: BASOPHILS # (AUTO) 0.1 K/uL (0.00-0.22); BASOPHILS % (AUTO) 1.3 % (0.0-2.0); EOSINOPHILS # (AUTO) 0.2 K/uL (0-0.4); HEMATOCRIT 36.8 % (36-48); HEMOGLOBIN 11.7 g/dL (12.0-16.0); LYMPHOCYTES # (AUTO) 1.1 K/uL (2.5-16.5); LYMPHOCYTES % (AUTO) 24.2 % (20.5-51.1); MEAN CORPUSCULAR HEMOGLOBIN 26 pg (27-31); MEAN CORPUSCULAR HGB CONC 32 g/dL (33-37); MEAN CORPUSCULAR VOLUME 81.3 fL (80-94); MONOCYTES # (AUTO) 0.4 K/uL (0.8-1.0); MONOCYTES % (AUTO) 8.7 % (1.7-9.3); NEUTROPHILS # (AUTO) 2.9 K/uL (1.8-7.7); NEUTROPHILS % (AUTO) 61.8 % (42.2-75.2); PLATELET COUNT (AUTO) 210 K/uL (140-450); RED BLOOD CELL COUNT(AUTO) 4.52 MIL/uL (4.20-5.40); RED CELL DISTRIBUTION WIDTH 16.1 % (11.6-13.7); WHITE BLOOD COUNT (AUTO) 4.7 K/uL (4.8-10.8)
[2022-03-30 07:51] LABS: ALBUMIN 2.7 g/dL (3.4-5.0); ANION GAP 10.1 (8-16); CARBON DIOXIDE 33.1 mmol/L (21-32); CREATININE 1.5 mg/dL (0.6-1.3); MAGNESIUM 1.5 mg/dL (1.8-2.4); PHOSPHORUS 5.6 mg/dL (2.5-4.9); POTASSIUM 4.2 mmol/L (3.5-5.1); TOTAL BILIRUBIN 0.3 mg/dL (0.0-1.0)
[2022-03-30 08:00] VITALS: BP 142/93
[2022-03-30] MEDS: hydrALAZINE 10 MG TAB PO SCH ×3 (08:54→17:09)
[2022-03-30] MEDS: lisinopriL 5 MG TAB PO SCH (08:55)
[2022-03-30] MEDS: SPIRONOLACTONE 25 MG TAB PO SCH (08:55)
[2022-03-30] MEDS: ASPIRIN 81 MG TAB.CHEW PO SCH (08:55)
[2022-03-30] MEDS: BUMETANIDE 1 MG/4 ML VIAL IV SCH (08:55)
[2022-03-30] MEDS: carvediloL 12.5 MG TAB PO SCH ×2 (08:55→20:31)
[2022-03-30] MEDS: APIXABAN 2.5 MG TAB PO SCH ×2 (09:02→20:30)
[2022-03-30] MEDS: ONDANSETRON 4 MG/2 ML VIAL IVP PRN (09:23)
[2022-03-30] MEDS ORDERED: MAG SULF 2000 MG/WATER PREMIX 50 ML IV SCH (09:48)
[2022-03-30 12:00] VITALS: BP 142/83
[2022-03-30 16:00] VITALS: BP 146/83
[2022-03-30] MEDS: BUMETANIDE 1 MG TAB PO SCH (17:09)
--- NOTE | 2022-03-30 18:27 | NUR ---
PATIENT REMAINS STABLE. NO DISTRESS NOTED THROUGHOUT SHIFT. DR. MORTON AND DR. TRUONG SEEN AND EXAMINED THE PATIENT. ALL NEEDS ANTICIPATED AND MET. WILL CONTINUE TO MONITOR.
--- NOTE | 2022-03-30 19:30 | NUR ---
RECEIVED REPORT FROM DAY SHIFT NURSE HELDER FOR CONTINUITY OF CARE. PATIENT IS A&O X4. PATIENT IS ON NC 2L; BREATHING IS NORMAL WITH SYMMETRICAL RISE AND FALL OF CHEST. PATIENT'S IV IS A 20G RAC; NO FLUIDS RUNNING AT THIS TIME (SALINE LOCK). PATIENT IS AWAKE SITTING UP IN BED WATCHING TV. BED IS IN LOWEST POSITION, WHEELS LOCKED, CALL LIGHT IN PLACE. WILL CONTINUE TO OBSERVE PATIENT.
[2022-03-30 20:00] VITALS: BP 149/90
[2022-03-30] MEDS: ATORVASTATIN 20 MG TAB PO SCH (20:30)
[2022-03-30] MEDS: INSULIN LANTUS 100 UNITS/ML 10 ML VIAL SUBQ SCH (20:36)
--- NOTE | 2022-03-31 | NUR ---
ADMINISTERED 2100 MEDICATIONS TO PATIENT. PATIENT TOLERATED WELL. PATIENT REFUSED 2100 MEDICATION COREG, STATING THAT SHE DOESN'T WANT TO TAKE THAT ONE. REFUSAL WAS DOCUMENTED IN EMAR. PATIENT ALSO REQUESTED MORPHINE FOR 7/10 PAIN. BP WAS 149/90, HR 97, TEMP 98.3, O2 99%, RR 20. CHECKED PATIENT'S CHART, MORPHINE WAS APPROPRIATE TO ADMINISTER. ADMINISTERED MORPHINE AT 3; PATIENT TOLERATED WELL. LOOKED IN ON PATIENT AT 2200, PATIENT WAS SITTING UP WATCHING TV. PATIENT INDICATED THAT PAIN WAS REDUCED TO 4/10. BREATHING WAS NORMAL WITH SYMMETRICAL RISE AND FALL OF CHEST. WILL CONTINUE TO OBSERVE PATIENT.
[2022-03-31] MEDS: MORPHINE SULFATE 2 MG/ML SYR IVP PRN (03:03)
[2022-03-31 04:00] VITALS: BP 153/84
--- NOTE | 2022-03-31 04:00 | NUR ---
PATIENT CALLED AND REQUESTED MORPHINE AT 0303 FOR 7/10 PAIN. MORPHINE WAS ADMINISTERED TO PATIENT. PATIENT TOLERATED WELL. PATIENT'S BP WAS 153/84; EDUCATED PATIENT ON THE IMPORTANCE OF TAKING HER COREG BECAUSE HER BP WAS HIGH. PATIENT REFUSED. WILL CONTINUE TO OBSERVE PATIENT.
[2022-03-31] MEDS: BLOOD GLUCOSE MONITORING 1 DEV DEV FS SCH ×2 (06:59→11:30)
[2022-03-31 07:12] LABS: BASOPHILS # (AUTO) 0.1 K/uL (0.00-0.22); BASOPHILS % (AUTO) 1.2 % (0.0-2.0); EOSINOPHILS # (AUTO) 0.2 K/uL (0-0.4); HEMOGLOBIN 11.9 g/dL (12.0-16.0); LYMPHOCYTES # (AUTO) 1.1 K/uL (2.5-16.5); LYMPHOCYTES % (AUTO) 21.8 % (20.5-51.1); MEAN CORPUSCULAR HEMOGLOBIN 26 pg (27-31); MEAN CORPUSCULAR HGB CONC 32 g/dL (33-37); MEAN CORPUSCULAR VOLUME 80.9 fL (80-94); MONOCYTES # (AUTO) 0.4 K/uL (0.8-1.0); MONOCYTES % (AUTO) 8.1 % (1.7-9.3); NEUTROPHILS # (AUTO) 3.1 K/uL (1.8-7.7); NEUTROPHILS % (AUTO) 64.9 % (42.2-75.2); PLATELET COUNT (AUTO) 225 K/uL (140-450); RED BLOOD CELL COUNT(AUTO) 4.58 MIL/uL (4.20-5.40); RED CELL DISTRIBUTION WIDTH 16.1 % (11.6-13.7); WHITE BLOOD COUNT (AUTO) 4.8 K/uL (4.8-10.8)
--- NOTE | 2022-03-31 07:30 | NUR ---
ENDORSED CONTINUITY OF CARE TO DAY SHIFT NURSE CHARLEE. PATIENT IS STABLE.
[2022-03-31 07:34] LABS: ANION GAP 10.2 (8-16); CREATININE 1.1 mg/dL (0.6-1.3); POTASSIUM 4.2 mmol/L (3.5-5.1)
[2022-03-31 07:41] LABS: MAGNESIUM 1.7 mg/dL (1.8-2.4); PHOSPHORUS 4.7 mg/dL (2.5-4.9)
--- NOTE | 2022-03-31 08:00 | NUR ---
Patient's Plan of Care was discussed and reviewed with PROFESSOR OF FOREST PLANNING: CHARLEE VILLAFANA
[2022-03-31] MEDS: APIXABAN 2.5 MG TAB PO SCH (09:19)
[2022-03-31] MEDS: ASPIRIN 81 MG TAB.CHEW PO SCH (09:20)
[2022-03-31] MEDS: lisinopriL 5 MG TAB PO SCH (09:20)
[2022-03-31] MEDS: BUMETANIDE 1 MG TAB PO SCH (09:20)
[2022-03-31] MEDS: carvediloL 12.5 MG TAB PO SCH (09:21)
[2022-03-31] MEDS: SPIRONOLACTONE 25 MG TAB PO SCH (09:21)
[2022-03-31] MEDS: hydrALAZINE 10 MG TAB PO SCH ×2 (09:21→13:12)
[2022-03-31] MEDS: HYDROcodone/APAP 5/325 MG 1 TAB TAB PO PRN (09:27)
[2022-03-31] MEDS ORDERED: CARV12.52 PO (09:57)
== END 2022-03-31 14:00 | disposition home or self-care (01) | DRG 133 ==
LOC: MED 19:53 → MTU 23:01
PROVIDERS: ADMIT Preventive Medicine Preventive Medicine/Occupational Environmental Medicine; ATTEND Preventive Medicine Preventive Medicine/Occupational Environmental Medicine
DX: J96.21 Acute and chronic respiratory failure with hypoxia (principal); N17.0 Acute kidney failure with tubular necrosis; I50.23 Acute on chronic systolic (congestive) heart failure; I13.0 Hypertensive heart and chronic kidney disease with heart failure and stage 1 through stage 4 chronic kidney disease, or unspecified chronic kidney disease; R07.9 Chest pain, unspecified; I25.10 Atherosclerotic heart disease of native coronary artery without angina pectoris; E11.22 Type 2 diabetes mellitus with diabetic chronic kidney disease; J44.9 Chronic obstructive pulmonary disease, unspecified; Z20.822 Contact with and (suspected) exposure to COVID-19; E66.01 Morbid (severe) obesity due to excess calories; I48.0 Paroxysmal atrial fibrillation; I44.7 Left bundle-branch block, unspecified; I25.5 Ischemic cardiomyopathy; E78.5 Hyperlipidemia, unspecified; Z79.4 Long term (current) use of insulin; Z88.5 Allergy status to narcotic agent; Z88.8 Allergy status to other drugs, medicaments and biological substances; Z68.41 Body mass index [BMI] 40.0-44.9, adult; N18.31 Chronic kidney disease, stage 3a
CPT/HCPCS: 36415; 36600; 70450; 71045; 80048; 80053; 82803; 82948; 83735; 83880; 84100; 84484; 85025; 87081; 96372; 96374; 96375; 99285; J0360; J1815; J1940; J2270; J2405; J3475; J3490

== ENCOUNTER 2022-04-08 07:14 | Inpatient (IN) | payer MEDICAID ==
[~2022-04-08] VITALS: Ht 172.7 cm; Wt 121.6 kg
[2022-04-08 07:15] VITALS: BP 160/100
--- NOTE | 2022-04-08 07:15 | NUR ---
PT DILLON BLS. TAKEN TO BED 3
--- NOTE | 2022-04-08 07:20 | NUR ---
PT RECEIVED, CARE ASSUMED. PT C/O FABIO CHEST PAIN WITH RADIATION OF FABIO NECK AREA. PT PLACED IN BED 3, CONNECTED TO TELE MONITOR: ST 111, AWAITING TO BE SEEN BY
[2022-04-08 08:52] LABS: ALBUMIN 3.5 g/dL (3.4-5.0); CARBON DIOXIDE 30.5 mmol/L (21-32); CREATININE 1.3 mg/dL (0.6-1.3); POTASSIUM 4.5 mmol/L (3.5-5.1); TOTAL BILIRUBIN 0.2 mg/dL (0.0-1.0)
[2022-04-08 08:58] LABS: CORRECTED WHITE BLOOD COUNT 4.6 K/uL (4.5-11.0); HEMATOCRIT 38.7 % (36-48); HEMOGLOBIN 12.6 g/dL (12.0-16.0); MEAN CORPUSCULAR VOLUME 78.3 fL (80-94); RED BLOOD CELL COUNT(AUTO) 4.98 MIL/uL (4.20-5.40); WHITE BLOOD COUNT (AUTO) 4.6 K/uL (4.8-10.8)
[2022-04-08 08:59] LABS: BASOPHILS % (AUTO) 3.1 % (0.0-2.0); EOSINOPHILS % (AUTO) 2.9 % (0.0-4.0); LYMPHOCYTES % (AUTO) 28.1 % (20.5-51.1); MEAN CORPUSCULAR HEMOGLOBIN 26 pg (27-31); MEAN CORPUSCULAR HGB CONC 33 g/dL (33-37); MONOCYTES % (AUTO) 5.7 % (1.7-9.3); NEUTROPHILS % (AUTO) 60.2 % (42.2-75.2); PLATELET COUNT (AUTO) 223 K/uL (140-450); RED CELL DISTRIBUTION WIDTH 15.5 % (11.6-13.7)
[2022-04-08 09:00] LABS: BASOPHILS # (AUTO) 0.1 K/uL (0.00-0.22); EOSINOPHILS # (AUTO) 0.1 K/uL (0-0.4); LYMPHOCYTES # (AUTO) 1.3 K/uL (2.5-16.5); MONOCYTES # (AUTO) 0.3 K/uL (0.8-1.0); NEUTROPHILS # (AUTO) 2.8 K/uL (1.8-7.7)
[2022-04-08] MEDS ORDERED: MORPHINE SULFATE 4 MG/ML SYR ONE (10:17)
[2022-04-08] MEDS ORDERED: MORPHINE SULFATE 4 MG/ML SYR IVP ONE (10:20)
[2022-04-08] MEDS ORDERED: FUROSEMIDE 40 MG/4 ML VIAL IVP ONE ×2 (11:10→13:26)
[2022-04-08] MEDS ORDERED: ONDANSETRON 4 MG/2 ML VIAL IVP PRN (15:05)
[2022-04-08] MEDS ORDERED: ACETAMINOPHEN 325 MG TAB PO PRN (15:05)
[2022-04-08] MEDS ORDERED: LORazepam 2 MG/ML VIAL IVP PRN (15:05)
--- NOTE | 2022-04-08 17:03 | NUR ---
PATIENT HAS BEEN SCREENED AND CATEGORIZED MODERATE NUTRITION RISK. PATIENT WILL BE SEEN WITHIN 3-5 DAYS OF ADMISSION. REVIEWED BY DAVIDSON PETE RD
[2022-04-08] MEDS: FUROSEMIDE 40 MG/4 ML VIAL IVP SCH (17:13)
--- NOTE | 2022-04-08 17:13 | NUR ---
ACCU CHECK 366
--- NOTE | 2022-04-08 17:30 | NUR ---
Patient will be admitted to [facility]. Admited to 107A. Will go to room. Belongings list completed. Report to .
--- NOTE | 2022-04-08 17:40 | NUR ---
PT HAS BEEN BROUGHT FROM ED IN STABLE CONDITION, ON 3L NC CHEST RISING AND FALLING EVEN AND UNLABORED. DENIES CHEST PAIN OR SOB AT THIS TIME. ALERT AND ORIENTED X4, ABLE TO MAKE NEEDS KNOWN. SKIN INTACT. MRSA SWAB COLLECTED. LAST BM NOTED 04/08/2022. ON TELE MONITOR SHOWING ST AT 105. PUREE WICK CONNECTED TO SUCTION. IV IS IN RIGHT HAND 22G, PATENT AND INTACT. ALL SAFETY MEASURES IN PLACE, CALL LIGHT WITHIN REACH. WILL CONTINUE TO MONITOR.
--- NOTE | 2022-04-08 19:30 | NUR ---
ADMITTED THIS 57 YEAR OLD FEMALE FROM ER WITH CC OF SOB AND CHEST PAIN, ASSESSMENT DONE, VITAL SIGNS STABLE, ON 2L O2 VIA NC, DENIES SOB BUT COMPLAINING OF CHEST PAIN, WILL MEDICATE PRN, PLAN OF CARE DISCUSSED, SAFETY MEASURES IN PLACE, CALL LIGHT WITHIN REACH.
[2022-04-08 20:00] VITALS: BP 145/93
[2022-04-08] MEDS ORDERED: DEXTROSE 50% 50 ML SYR IVP PRN (20:00)
[2022-04-08] MEDS: BLOOD GLUCOSE MONITORING 1 DEV DEV FS SCH (20:14)
[2022-04-08] MEDS: MORPHINE SULFATE 2 MG/ML SYR IVP PRN (20:14)
[2022-04-08] MEDS: INSULIN LISPRO SLIDING SCALE 100 UNITS/ML VIAL SUBQ PRN (20:15)
--- NOTE | 2022-04-08 22:35 | NUR ---
PT COMPLAINING OF NAUSEA BUT NO VOMITING, MEDICATED PRN WITH ZOFRAN IVP, PROVIDED WITH SALTINE CRACKERS PER REQUEST, MONITORED CLOSELY.
[2022-04-09] VITALS: BP 134/97
[2022-04-09 04:00] VITALS: BP 125/89
[2022-04-09] MEDS: INSULIN LISPRO SLIDING SCALE 100 UNITS/ML VIAL SUBQ PRN ×2 (06:39→12:27)
[2022-04-09] MEDS: BLOOD GLUCOSE MONITORING 1 DEV DEV FS SCH ×2 (06:52→12:25)
[2022-04-09] MEDS: MORPHINE SULFATE 2 MG/ML SYR IVP PRN ×2 (06:57→12:48)
--- NOTE | 2022-04-09 07:20 | NUR ---
PT SLEEPING, NO SIGNS OF DISTRESS, REPORT GIVEN TO BELINDA MARROQUIN FOR CONTINUITY OF CARE.`
[2022-04-09 07:26] LABS: BASOPHILS # (AUTO) 0.1 K/uL (0.00-0.22); BASOPHILS % (AUTO) 2.2 % (0.0-2.0); EOSINOPHILS # (AUTO) 0.2 K/uL (0-0.4); EOSINOPHILS % (AUTO) 4.9 % (0.0-4.0); HEMATOCRIT 40.1 % (36-48); LYMPHOCYTES # (AUTO) 1.5 K/uL (2.5-16.5); LYMPHOCYTES % (AUTO) 29.9 % (20.5-51.1); MEAN CORPUSCULAR HEMOGLOBIN 26 pg (27-31); MEAN CORPUSCULAR HGB CONC 33 g/dL (33-37); MEAN CORPUSCULAR VOLUME 79.1 fL (80-94); MONOCYTES # (AUTO) 0.5 K/uL (0.8-1.0); MONOCYTES % (AUTO) 10.4 % (1.7-9.3); NEUTROPHILS # (AUTO) 2.6 K/uL (1.8-7.7); NEUTROPHILS % (AUTO) 52.6 % (42.2-75.2); PLATELET COUNT (AUTO) 237 K/uL (140-450); RED BLOOD CELL COUNT(AUTO) 5.06 MIL/uL (4.20-5.40); RED CELL DISTRIBUTION WIDTH 15.8 % (11.6-13.7); WHITE BLOOD COUNT (AUTO) 4.9 K/uL (4.8-10.8)
[2022-04-09 08:00] VITALS: BP 128/81
[2022-04-09 08:06] LABS: ALBUMIN 3.5 g/dL (3.4-5.0); ANION GAP 11.2 (8-16); CARBON DIOXIDE 33.3 mmol/L (21-32); CREATININE 1.4 mg/dL (0.6-1.3); MAGNESIUM 1.8 mg/dL (1.8-2.4); POTASSIUM 4.5 mmol/L (3.5-5.1); TOTAL BILIRUBIN 0.3 mg/dL (0.0-1.0)
[2022-04-09] MEDS: FUROSEMIDE 40 MG/4 ML VIAL IVP SCH (09:32)
[2022-04-09 12:00] VITALS: BP 131/84
[2022-04-09 16:00] VITALS: BP 132/86
[2022-04-09 16:25] VITALS: BP 131/84
== END 2022-04-09 16:56 | disposition home or self-care (01) | DRG 194 ==
LOC: EDBD → MED 07:14 → MTU 15:04
PROVIDERS: ADMIT Hospitalist; ATTEND Hospitalist
DX: I13.0 Hypertensive heart and chronic kidney disease with heart failure and stage 1 through stage 4 chronic kidney disease, or unspecified chronic kidney disease (principal); E11.22 Type 2 diabetes mellitus with diabetic chronic kidney disease; I50.23 Acute on chronic systolic (congestive) heart failure; E11.9 Type 2 diabetes mellitus without complications; J44.9 Chronic obstructive pulmonary disease, unspecified; E66.01 Morbid (severe) obesity due to excess calories; J45.909 Unspecified asthma, uncomplicated; Z68.41 Body mass index [BMI] 40.0-44.9, adult; Z20.822 Contact with and (suspected) exposure to COVID-19; Z88.8 Allergy status to other drugs, medicaments and biological substances; N18.30 Chronic kidney disease, stage 3 unspecified; Z79.4 Long term (current) use of insulin
CPT/HCPCS: 36415; 71045; 80053; 82948; 83036; 83735; 83880; 84484; 85025; 87081; 93005; 96374; 96375; 99285; J1940; J2270; J2405; Q0092

== ENCOUNTER 2022-04-21 21:29 | Emergency (ER) | payer MEDICAID ==
[~2022-04-21] VITALS: Ht 172.7 cm; Wt 121.6 kg
[2022-04-21 21:29] VITALS: BP 158/108
--- NOTE | 2022-04-21 21:30 | NUR ---
TO LOBBY A/W BED VIA W/C, BIBA C/O FLU LIKE SYMPTOMS
--- NOTE | 2022-04-22 01:42 | NUR ---
Patient walked out of ER.
--- NOTE | 2022-04-22 01:42 | NUR ---
PATIENT LEFT WITHOUT BEING SEEN BY DR. Yan. NO FURTHER CARE PROVIDED FOR PATIENT.
== END 2022-04-22 01:42 | disposition left against medical advice (07) ==
LOC: MED 21:29
DX: M79.10 Myalgia, unspecified site (principal); R53.1 Weakness; R06.02 Shortness of breath; Z53.21 Procedure and treatment not carried out due to patient leaving prior to being seen by health care provider

== ENCOUNTER 2022-05-04 21:04 | Inpatient (IN) | payer MEDICAID ==
[~2022-05-04] VITALS: Ht 172.7 cm; Wt 121.6 kg
[2022-05-04 21:15] VITALS: BP 151/119
--- NOTE | 2022-05-04 21:15 | NUR ---
TO BED VIA W/C
--- NOTE | 2022-05-04 21:31 | NUR ---
Patient resting in bed, A/Ox4, chest rise and fall symmetrical, no s/s of distress.
--- NOTE | 2022-05-04 21:31 | NUR ---
57 Y/O F presents with intermittent aching chest pain,cough, and SOB. pt states chest pain is 9/10. pt is A&Ox4, skin intact. pt is ambulatory but needs assistance due to pain and muscle spasm bilateral legs. pt is on 2L NC, purewick applied at request of pt. PMH-asthma, COPD, Diabetes, HTN, Renal disease, chronic kidney disease III, cardiac disorders allergies- dexamethasone, ibuprofen, ketamine
--- NOTE | 2022-05-04 21:46 | NUR ---
X-Ray at bedside.
[2022-05-04 22:44] LABS: BASOPHILS # (AUTO) 0.1 K/uL (0.00-0.22); BASOPHILS % (AUTO) 0.9 % (0.0-2.0); EOSINOPHILS # (AUTO) 0.1 K/uL (0-0.4); EOSINOPHILS % (AUTO) 0.6 % (0.0-4.0); HEMATOCRIT 37.6 % (36-48); HEMOGLOBIN 12.2 g/dL (12.0-16.0); LYMPHOCYTES # (AUTO) 1.1 K/uL (2.5-16.5); LYMPHOCYTES % (AUTO) 12.5 % (20.5-51.1); MEAN CORPUSCULAR HEMOGLOBIN 25 pg (27-31); MEAN CORPUSCULAR HGB CONC 32 g/dL (33-37); MEAN CORPUSCULAR VOLUME 78.4 fL (80-94); MONOCYTES # (AUTO) 0.5 K/uL (0.8-1.0); MONOCYTES % (AUTO) 5.8 % (1.7-9.3); NEUTROPHILS # (AUTO) 7.3 K/uL (1.8-7.7); NEUTROPHILS % (AUTO) 80.2 % (42.2-75.2); PLATELET COUNT (AUTO) 245 K/uL (140-450); RED BLOOD CELL COUNT(AUTO) 4.79 MIL/uL (4.20-5.40); RED CELL DISTRIBUTION WIDTH 15.6 % (11.6-13.7); WHITE BLOOD COUNT (AUTO) 9.1 K/uL (4.8-10.8)
[2022-05-04] MEDS ORDERED: MORPHINE SULFATE 4 MG/ML SYR IVP ONE (22:45)
[2022-05-04] MEDS ORDERED: ONDANSETRON 4 MG/2 ML VIAL IVP ONE (22:45)
--- NOTE | 2022-05-04 22:45 | NUR ---
Purewick applied to pt
[2022-05-04 23:01] LABS: PROTHROMBIN TIME 10.5 secs (10.8-13.4)
[2022-05-04 23:06] LABS: LIPASE 274 U/L (73-393)
[2022-05-04 23:10] LABS: ALBUMIN 3.4 g/dL (3.4-5.0); ANION GAP 11.2 (8-16); CARBON DIOXIDE 30.8 mmol/L (21-32); CREATININE 1.4 mg/dL (0.6-1.3); TOTAL BILIRUBIN 0.4 mg/dL (0.0-1.0)
--- NOTE | 2022-05-04 23:30 | NUR ---
pt resting in room, on cardiac rehabilitation program director
[2022-05-05] MEDS ORDERED: BUMETANIDE 1 MG/4 ML VIAL IV ONE (01:30)
--- NOTE | 2022-05-05 01:35 | NUR ---
BELONGINGS LIST DONE.
--- NOTE | 2022-05-05 01:38 | NUR ---
ok to admit inpatient tele auth #[id number]
[2022-05-05] MEDS ORDERED: oxyCODONE/APAP 5/325 MG 1 TAB TAB PO ONE (01:40)
--- NOTE | 2022-05-05 03:15 | NUR ---
Patient will be admitted to care of Dr. Earl. Admited to Tele. Will go to room 104B. Belongings list completed. Report to Yamel TREVINO.
--- NOTE | 2022-05-05 03:30 | NUR ---
PT WAS ADMITTED TO [facility] WITH DIAGNOSIS OF CHF. PT IS AOX4, AMBULATORY, ABLE TO FOLLOW COMMANDS AND ABLE TO VERBALIZE NEEDS. PT IS ON 2L NC AND HAS PUREWICK. PT HAS IV ON RIGHT HAND GAUGE 20, SALINE LOCK. PT SKIN IS INTACT. PT DENIES PAIN AT THIS TIME. NO S/S OF RESPIRATORY DISTRESS NOTED. PT WAS ORIENTED TO HOSPITAL/ROOM, BED BUTTONS AND CALL LIGHT. ALL SAFETY MEASURES IMPLEMENTED. BED IN LOW POSITION, BED WHEELS ON LOCK AND CALL LIGHT WITHIN REACH.
[2022-05-05 04:00] VITALS: BP 145/94
[2022-05-05] MEDS ORDERED: INSULIN LISPRO SLIDING SCALE 100 UNITS/ML VIAL SUBQ PRN (04:55)
--- NOTE | 2022-05-05 05:00 | NUR ---
MORNING CARE WAS DONE TO PT. CHANGED GOWN, LINENS, PUREWICK AND CHUCKS. ALL SAFETY MEASURES IMPLEMENTED. BED IN LOW POSITION, BED WHEELS ON LOCKED AND CALL LIGHT WITHIN REACH.
--- NOTE | 2022-05-05 06:16 | NUR ---
NOTIFIED DR. KING DUE TO PT'S BACK PAIN WITH PAIN SCALE OF 8/10. WILL WAIT FOR DR. KING ORDER.
[2022-05-05] MEDS ORDERED: HYDROcodone/APAP 5/325 MG 1 TAB TAB PO PRN ×2 (06:40→09:40)
--- NOTE | 2022-05-05 07:08 | NUR ---
PT IS STABLE. ENDORSED PT TO MORNING SHIFT NURSE FOR CONTINUITY OF CARE.
[2022-05-05] MEDS ORDERED: BLOOD GLUCOSE MONITORING 1 DEV DEV FS SCH (07:30)
--- NOTE | 2022-05-05 07:33 | NUR ---
GOT REPORT FROM THE NIGHT NURSE , PT IS SLEEPING NO SOB [id number]
[2022-05-05 08:00] VITALS: BP 127/80
--- NOTE | 2022-05-05 09:33 | NUR ---
PATIENT HAS BEEN SCREENED AND CATEGORIZED MODERATE NUTRITION RISK. PATIENT WILL BE SEEN WITHIN 3-5 DAYS OF ADMISSION. REVIEWED BY DAVIDSON PETE RD
[2022-05-05] MEDS ORDERED: CLONIDINE HYDROCHLORIDE 0.1 MG TAB PO PRN (09:40)
[2022-05-05] MEDS ORDERED: ONDANSETRON 4 MG/2 ML VIAL IVP PRN (09:40)
[2022-05-05] MEDS ORDERED: ACETAMINOPHEN 325 MG TAB PO PRN (09:40)
[2022-05-05] MEDS ORDERED: DEXTROSE 50% 50 ML SYR IVP PRN (09:40)
[2022-05-05] MEDS ORDERED: LORazepam 2 MG/ML VIAL IVP PRN (09:40)
[2022-05-05] MEDS ORDERED: HYDROcodone/APAP 10/325 MG 1 TAB TAB PO PRN (09:40)
[2022-05-05] MEDS ORDERED: NITROGLYCERIN 0.4 MG TAB SL SCH (09:40)
[2022-05-05] MEDS ORDERED: ALBUTEROL HFA MDI 90 MCG/ACTUATION 8 GM INH PRN (09:40)
[2022-05-05] MEDS: ASPIRIN 81 MG TAB.CHEW PO SCH (10:12)
[2022-05-05] MEDS: SPIRONOLACTONE 50 MG TAB PO SCH (10:12)
[2022-05-05] MEDS ORDERED: ALBUTEROL 0.083% 2.5 MG/3 ML NEBU INH PRN (11:00)
[2022-05-05 11:01] LABS: EOSINOPHILS # (AUTO) 0.2 K/uL (0-0.4)
[2022-05-05 11:04] LABS: EOSINOPHILS % (AUTO) 1.5 % (0.0-4.0); HEMATOCRIT 39.2 % (36-48); HEMOGLOBIN 12.4 g/dL (12.0-16.0); MEAN CORPUSCULAR HEMOGLOBIN 25 pg (27-31); MEAN CORPUSCULAR HGB CONC 32 g/dL (33-37); MEAN CORPUSCULAR VOLUME 79.8 fL (80-94); MONOCYTES % (AUTO) 8.3 % (1.7-9.3); NEUTROPHILS # (AUTO) 9.2 K/uL (1.8-7.7); NEUTROPHILS % (AUTO) 73.2 % (42.2-75.2); PLATELET COUNT (AUTO) 187 K/uL (140-450); RED BLOOD CELL COUNT(AUTO) 4.92 MIL/uL (4.20-5.40); RED CELL DISTRIBUTION WIDTH 15.8 % (11.6-13.7); WHITE BLOOD COUNT (AUTO) 12.5 K/uL (4.8-10.8)
[2022-05-05 11:23] LABS: BASOPHILS # (AUTO) 0.1 K/uL (0.00-0.22)
[2022-05-05 11:48] LABS: ANION GAP 12.5 (8-16); CARBON DIOXIDE 30.5 mmol/L (21-32); CREATININE 1.6 mg/dL (0.6-1.3)
[2022-05-05] MEDS: INSULIN LISPRO SLIDING SCALE 100 UNITS/ML VIAL SUBQ PRN ×3 (11:50→20:54)
[2022-05-05] MEDS: BLOOD GLUCOSE MONITORING 1 DEV DEV FS SCH ×3 (11:51→20:42)
[2022-05-05] MEDS ORDERED: NITROGLYCERIN 0.4 MG TAB SL PRN (11:59)
[2022-05-05 12:00] VITALS: BP 111/69
[2022-05-05] MEDS: hydrALAZINE 10 MG TAB PO SCH ×2 (12:45→17:22)
[2022-05-05 16:00] VITALS: BP 121/76
--- NOTE | 2022-05-05 19:15 | NUR ---
RECEIVED PATIENT LYING ON THE BED, IS AWAKE, ALERT AND ORIENTED, IV SITE ON RIGHT HAND, G20, PATENT AND INTACT. CALL LIGHT WITHIN REACH.
[2022-05-05 20:00] VITALS: BP 159/99
[2022-05-05] MEDS: APIXABAN 2.5 MG TAB PO SCH (20:37)
[2022-05-05] MEDS: carvediloL 12.5 MG TAB PO SCH (20:42)
[2022-05-05] MEDS: BUMETANIDE 1 MG TAB PO SCH (20:42)
[2022-05-05] MEDS: oxyCODONE 5 MG TAB PO SCH (20:56)
--- NOTE | 2022-05-05 20:58 | NUR ---
SCHEDULED MEDICATIONS GIVEN ORDERED, PATIENT REFUSED COREG. WILL CONTINUE TO MONITOR THE PATIENT.
[2022-05-05] MEDS ORDERED: INSULIN LANTUS 100 UNITS/ML 10 ML VIAL SUBQ SCH (21:00)
[2022-05-05] MEDS ORDERED: ATORVASTATIN 20 MG TAB PO SCH (21:00)
[2022-05-05] MEDS ORDERED: lisinopriL 5 MG TAB PO SCH (21:00)
[2022-05-06] VITALS: BP 123/91
--- NOTE | 2022-05-06 00:03 | NUR ---
PATIENT IS ASLEEP, NO SIGNS OF PAIN/DISCOMFORT NOTED, NO SIGNS OF DISTRESS NOTED. VITALS TEMP 97.7, P 105, BP 123/91, RESP 20 AND O2 96%. ALL SAFETY MEASURES IN PLACE. PATIENT HAS PUREWICK IN PLACE.
[2022-05-06 04:00] VITALS: BP 129/91
--- NOTE | 2022-05-06 04:05 | NUR ---
VITALS TAKEN TEMP 98.0, P 101, BP 129/91, RESP 20 AND 02 SATS 94% @2LPM NC. BEDSIDE CARE DONE, LINENS CHANGED, ALL SAFETY MEASURES IN PLACE.
[2022-05-06] MEDS: BLOOD GLUCOSE MONITORING 1 DEV DEV FS SCH (06:31)
[2022-05-06] MEDS: INSULIN LISPRO SLIDING SCALE 100 UNITS/ML VIAL SUBQ PRN (06:32)
--- NOTE | 2022-05-06 07:13 | NUR ---
ENDORSED PATIENT TO DAY NURSE FOR CONTINUITY OF CARE. NEEDS MET THROUGHOUT THE SHIFT. PATIENT IN STABLE CONDITION.
--- NOTE | 2022-05-06 07:35 | NUR ---
05/06/2022 0735: RECEIVED PT FROM KENNY TREVINO. PT RESTING IN BED NO GUARDING OR GRIMACING. NO ACUTE DISTRESS NOTED AT THIS TIME. [id number].
[2022-05-06 07:36] LABS: BASOPHILS # (AUTO) 0.1 K/uL (0.00-0.22); BASOPHILS % (AUTO) 1.2 % (0.0-2.0); EOSINOPHILS # (AUTO) 0.2 K/uL (0-0.4); EOSINOPHILS % (AUTO) 1.9 % (0.0-4.0); HEMATOCRIT 39.9 % (36-48); HEMOGLOBIN 12.7 g/dL (12.0-16.0); LYMPHOCYTES # (AUTO) 1.1 K/uL (2.5-16.5); MEAN CORPUSCULAR HEMOGLOBIN 26 pg (27-31); MEAN CORPUSCULAR HGB CONC 32 g/dL (33-37); MEAN CORPUSCULAR VOLUME 80.2 fL (80-94); MONOCYTES # (AUTO) 0.6 K/uL (0.8-1.0); MONOCYTES % (AUTO) 6.6 % (1.7-9.3); NEUTROPHILS # (AUTO) 7.7 K/uL (1.8-7.7); NEUTROPHILS % (AUTO) 79.3 % (42.2-75.2); PLATELET COUNT (AUTO) 172 K/uL (140-450); RED BLOOD CELL COUNT(AUTO) 4.97 MIL/uL (4.20-5.40); RED CELL DISTRIBUTION WIDTH 15.9 % (11.6-13.7); WHITE BLOOD COUNT (AUTO) 9.8 K/uL (4.8-10.8)
[2022-05-06 07:40] LABS: ALBUMIN 3.2 g/dL (3.4-5.0); ANION GAP 10.7 (8-16); CARBON DIOXIDE 34.1 mmol/L (21-32); CREATININE 1.6 mg/dL (0.6-1.3); MAGNESIUM 1.8 mg/dL (1.8-2.4); PHOSPHORUS 5.2 mg/dL (2.5-4.9); POTASSIUM 4.8 mmol/L (3.5-5.1); TOTAL BILIRUBIN 0.4 mg/dL (0.0-1.0)
[2022-05-06 08:00] VITALS: BP 130/92
[2022-05-06] MEDS: hydrALAZINE 10 MG TAB PO SCH (08:29)
[2022-05-06] MEDS: ASPIRIN 81 MG TAB.CHEW PO SCH (08:29)
[2022-05-06] MEDS: SPIRONOLACTONE 50 MG TAB PO SCH (08:29)
[2022-05-06] MEDS: BUMETANIDE 1 MG TAB PO SCH (08:30)
[2022-05-06] MEDS: carvediloL 12.5 MG TAB PO SCH (08:30)
[2022-05-06] MEDS: APIXABAN 2.5 MG TAB PO SCH (08:30)
[2022-05-06] MEDS: oxyCODONE 5 MG TAB PO SCH ×2 (08:32→09:00)
--- NOTE | 2022-05-06 18:25 | NUR ---
05/06/2022 12:40: PT DISCHARGED VIA W/C. NO C/O PAIN. NO GUARDING OR GRIMACING. TRANSFERED FROM / TO TRANSPORT VAN WITH NO INCIDENT. WALKED WITH A STEADY GAIT FROM [facility] TO [place]. NO SOB. NO ACUTE DISTRESS NOTED AT THIS TIME. [id number].
--- NOTE | 2022-05-06 18:33 | NUR ---
05/06/2022 13:15: PREVIOUS ENTRY OF 12:40 IS ON ERROR. IV DISCONTINUED CATHETER INTACT. PT. AMBULATED TO W/C WITH A STEADY GAIT. NO C/O PAIN, SOB, NO GUARDING OR GRIMACING. NO ACUTE DISTRESS NOTED AT THIS TIME. PT DISCHARGED HOME WITH RADHA. CHAR FILTER OPERATOR RETRIEVED. NO ACUTE DISTRESS NOTED AT THIS TIME. [id number].
== END 2022-05-06 14:16 | disposition home or self-care (01) | DRG 194 ==
LOC: MED 21:04 → EDBD 21:04 → MTU 05-05 02:49
PROVIDERS: ADMIT Preventive Medicine Preventive Medicine/Occupational Environmental Medicine; ATTEND Preventive Medicine Preventive Medicine/Occupational Environmental Medicine
DX: I13.0 Hypertensive heart and chronic kidney disease with heart failure and stage 1 through stage 4 chronic kidney disease, or unspecified chronic kidney disease (principal); E44.0 Moderate protein-calorie malnutrition; E87.1 Hypo-osmolality and hyponatremia; E83.39 Other disorders of phosphorus metabolism; E11.21 Type 2 diabetes mellitus with diabetic nephropathy; Z79.01 Long term (current) use of anticoagulants; I48.0 Paroxysmal atrial fibrillation; E88.09 Other disorders of plasma-protein metabolism, not elsewhere classified; I50.23 Acute on chronic systolic (congestive) heart failure; E11.22 Type 2 diabetes mellitus with diabetic chronic kidney disease; E11.65 Type 2 diabetes mellitus with hyperglycemia; Z20.822 Contact with and (suspected) exposure to COVID-19; N18.30 Chronic kidney disease, stage 3 unspecified; E83.52 Hypercalcemia; G89.4 Chronic pain syndrome; I25.10 Atherosclerotic heart disease of native coronary artery without angina pectoris; E78.5 Hyperlipidemia, unspecified; I25.5 Ischemic cardiomyopathy; I44.7 Left bundle-branch block, unspecified; J44.9 Chronic obstructive pulmonary disease, unspecified; Z88.1 Allergy status to other antibiotic agents; Z88.8 Allergy status to other drugs, medicaments and biological substances; Z79.899 Other long term (current) drug therapy; Z68.41 Body mass index [BMI] 40.0-44.9, adult
CPT/HCPCS: 36415; 71045; 80048; 80053; 82948; 83605; 83690; 83735; 83880; 84100; 84484; 85025; 85610; 85730; 86870; 86886; 86900; 86901; 87040; 87081; 93005; 94664; 99285; J1815; J2270; J2405; J3490; Q0092

== ENCOUNTER 2022-05-12 02:38 | Emergency (ER) | payer MEDICAID ==
[~2022-05-12] VITALS: Ht 172.7 cm; Wt 121.6 kg
[2022-05-12 02:41] VITALS: BP 134/79
--- NOTE | 2022-05-12 02:47 | NUR ---
Patient in bed 4, on monitor. event crew technician at bedside performing EKG.
--- NOTE | 2022-05-12 02:51 | NUR ---
Received patient to ER w/ c/o chest pain, sob, and generalized body pain. Patient seen at various hospital for similar c/o but per patient "Sx do not go away.". Introduced self to patient, positioned patient for comfort and safety w/ bed to low position sr up, continue to monitor.
[2022-05-12] MEDS ORDERED: MORPHINE SULFATE 4 MG/ML SYR IM ONE (02:55)
--- NOTE | 2022-05-12 03:04 | NUR ---
patient medicated as ordered w/ 6mg of morphine im to left deltoid. Will observe for any adverse reaction. bed to low position sr up, continue to monitor.
--- NOTE | 2022-05-12 03:53 | NUR ---
no adverse reaction noted to morphine im. patient asleep resting comfortably at this time. NSR on groundwater monitoring technician. Bed to low position sr up, continue to monitor.
--- NOTE | 2022-05-12 04:15 | NUR ---
patient b/p elevated at 184/123 hr at 111, pox noted at 88%. patient placed in position of comfort. placed on 2l n/c. aware of b/p
[2022-05-12 05:02] VITALS: BP 166/111
== END 2022-05-12 05:01 | disposition home or self-care (01) ==
LOC: MED 02:38
DX: I50.9 Heart failure, unspecified (principal); J45.909 Unspecified asthma, uncomplicated; I10 Essential (primary) hypertension; J44.9 Chronic obstructive pulmonary disease, unspecified; N18.9 Chronic kidney disease, unspecified; E11.9 Type 2 diabetes mellitus without complications; Z79.4 Long term (current) use of insulin; Z79.899 Other long term (current) drug therapy; Z88.5 Allergy status to narcotic agent; Z88.8 Allergy status to other drugs, medicaments and biological substances; Z79.1 Long term (current) use of non-steroidal anti-inflammatories (NSAID)
CPT/HCPCS: 71045; 93005; 96372; 99283; J2270; Q0092

== ENCOUNTER 2022-05-27 21:11 | Observation (INO) | payer MEDICAID ==
[~2022-05-27] VITALS: Ht 172.7 cm; Wt 121.1 kg
[2022-05-27 21:20] VITALS: BP 179/121
--- NOTE | 2022-05-27 21:20 | NUR ---
to bed via wheelchair
--- NOTE | 2022-05-27 21:30 | NUR ---
RECEIVED IN BED 1 WITH C/O diff of breathing, cough, body aches,weak, for a week
[2022-05-27] MEDS ORDERED: ALBUTEROL 0.083% 2.5 MG/3 ML NEBU INH ONE (21:55)
[2022-05-27] MEDS ORDERED: IPRATROPIUM 0.02% 0.5 MG/2.5 ML NEBU INH ONE (21:55)
[2022-05-27 22:22] LABS: BASOPHILS # (AUTO) 0.1 K/uL (0.00-0.22); BASOPHILS % (AUTO) 1.7 % (0.0-2.0); EOSINOPHILS # (AUTO) 0.2 K/uL (0-0.4); HEMATOCRIT 35.2 % (36-48); HEMOGLOBIN 11.4 g/dL (12.0-16.0); LYMPHOCYTES # (AUTO) 1.2 K/uL (2.5-16.5); LYMPHOCYTES % (AUTO) 19.9 % (20.5-51.1); MEAN CORPUSCULAR HEMOGLOBIN 25 pg (27-31); MEAN CORPUSCULAR HGB CONC 33 g/dL (33-37); MONOCYTES # (AUTO) 0.6 K/uL (0.8-1.0); MONOCYTES % (AUTO) 9.5 % (1.7-9.3); NEUTROPHILS # (AUTO) 3.9 K/uL (1.8-7.7); NEUTROPHILS % (AUTO) 65.9 % (42.2-75.2); PLATELET COUNT (AUTO) 234 K/uL (140-450); RED BLOOD CELL COUNT(AUTO) 4.63 MIL/uL (4.20-5.40); RED CELL DISTRIBUTION WIDTH 16.4 % (11.6-13.7)
[2022-05-27 22:45] LABS: ALBUMIN 3.2 g/dL (3.4-5.0); ANION GAP 9.7 (8-16); CARBON DIOXIDE 29.9 mmol/L (21-32); CREATININE 1.3 mg/dL (0.6-1.3); POTASSIUM 3.6 mmol/L (3.5-5.1); TOTAL BILIRUBIN 0.4 mg/dL (0.0-1.0)
--- NOTE | 2022-05-27 23:00 | NUR ---
ASSISTED WITH REPOSITIONING. PUREWICK PLACED AT THIS TIME
[2022-05-27] MEDS ORDERED: FUROSEMIDE 40 MG/4 ML VIAL IVP ONE (23:15)
[2022-05-28] MEDS ORDERED: MORPHINE SULFATE 4 MG/ML SYR IVP ONE (00:55)
[2022-05-28] MEDS ORDERED: MORPHINE SULFATE 2 MG/ML SYR IVP SCH ×2 (05:45→20:15)
--- NOTE | 2022-05-28 07:15 | NUR ---
PT SLEEPING, NO AC DISTRESS, SR ON CM, NO FACIAL GRIMACING OR GRUNTING, O2 SAT 97-99% RA, SR UP TIMES 2, SL PATENT RIGHT HAND, 1300 URINED DC'D, NO PAIN AT THIS TIME, WILL BE TRANSFERRED TO FLOOR
--- NOTE | 2022-05-28 07:37 | NUR ---
PT ARRIVED TO [facility] VIA GURNEY. ORIENTED TO UNIT, ROOM, RESTROOM, CALL LIGHT. PT AOX4, ABLE TO VERBALIZE NEEDS. RESPIRATIONS EVEN AND UNLABORED ON RA, PT STATES SHE NEEDS OXYGEN AND USES 2L NC AT HOME. PT PLACED ON 2L VIA NC. SKIN WARM AND DRY TO TOUCH. ON PUREWICK. IV ON R HAND 20G, SL. NO DISTRESS NOTED. CALL LIGHT WITHIN REACH. ALL SAFETY PRECAUTIONS IN PLACE.
[2022-05-28 08:00] VITALS: BP 175/95
[2022-05-28] MEDS ORDERED: FUROSEMIDE 20 MG/2 ML VIAL IVP SCH (09:00)
--- NOTE | 2022-05-28 09:01 | NUR ---
INFORMED DR CONNER OF PT ELEVATED BP. PT UBALDO STATES HE WILL BE MAKING ROUNDS AND TAKE A LOOK. NO NEW ORDERS AT THIS TIME.
--- NOTE | 2022-05-28 09:36 | NUR ---
PT GIVEN IV LASIX BY BELINDA JORDAN.
[2022-05-28] MEDS ORDERED: INSULIN LISPRO SLIDING SCALE 100 UNITS/ML VIAL SUBQ PRN (09:45)
--- NOTE | 2022-05-28 09:47 | NUR ---
DR ARCE IN MED ORDER FOR HYDRALAZINE SCHEDULED FOR AFTERNOON.
--- NOTE | 2022-05-28 10:35 | NUR ---
PATIENT HAS BEEN SCREENED AND CATEGORIZED MODERATE NUTRITION RISK. PATIENT WILL BE SEEN WITHIN 3-[address]. [address]
[2022-05-28] MEDS ORDERED: DEXTROSE 50% 50 ML SYR IVP PRN (10:40)
[2022-05-28] MEDS: BLOOD GLUCOSE MONITORING 1 DEV DEV FS SCH ×2 (11:33→15:57)
--- NOTE | 2022-05-28 11:33 | NUR ---
BS CHECK DONE. PT GIVEN INSULIN PER SLIDING SCALE.
[2022-05-28] MEDS: INSULIN LISPRO SLIDING SCALE 100 UNITS/ML VIAL SUBQ PRN ×2 (11:37→16:00)
[2022-05-28 12:00] VITALS: BP 162/91
[2022-05-28] MEDS: hydrALAZINE 10 MG TAB PO SCH ×2 (13:03→16:47)
[2022-05-28] MEDS ORDERED: ACETAMINOPHEN EXTRA STRENGTH 500 MG TAB PO PRN (15:15)
[2022-05-28 16:00] VITALS: BP 125/77
--- NOTE | 2022-05-28 17:55 | NUR ---
MAKING ROUNDS PT IN BED SLEEPING. RESPIRATIONS EVEN AND UNLABORED. CALL LIGHT WITHIN REACH.
--- NOTE | 2022-05-28 19:29 | NUR ---
ENDORSED PT TO SENIOR UI UX DEVELOPER NURSE FOR CONTINUITY OF CARE. PT STABLE.
[2022-05-28 19:36] VITALS: BP 149/94
[2022-05-28 19:37] VITALS: BP 148/94
[2022-05-28] MEDS: APIXABAN 2.5 MG TAB PO SCH (21:03)
[2022-05-28] MEDS: carvediloL 12.5 MG TAB PO SCH (21:03)
[2022-05-28] MEDS: BUMETANIDE 1 MG/4 ML VIAL IV SCH (21:03)
[2022-05-28] MEDS ORDERED: ACETAMINOPHEN 325 MG TAB PO PRN (23:50)
[2022-05-28] MEDS ORDERED: POTASSIUM CHLORIDE 10 MEQ TABER PO PRN (23:50)
[2022-05-28] MEDS ORDERED: DOCUSATE SODIUM 100 MG GELCAP PO PRN (23:50)
[2022-05-28] MEDS ORDERED: ZOLPIDEM 10 MG TAB PO PRN (23:50)
[2022-05-28] MEDS ORDERED: LORazepam 2 MG/ML VIAL IVP PRN (23:50)
[2022-05-28] MEDS ORDERED: ONDANSETRON 4 MG/2 ML VIAL IVP PRN (23:50)
[2022-05-29 00:56] VITALS: BP 128/78
[2022-05-29 04:23] VITALS: BP 138/89
[2022-05-29 06:25] LABS: ANION GAP 9.7 (8-16); CREATININE 1.4 mg/dL (0.6-1.3); POTASSIUM 3.7 mmol/L (3.5-5.1)
[2022-05-29 06:58] LABS: BASOPHILS # (AUTO) 0.1 K/uL (0.00-0.22); EOSINOPHILS # (AUTO) 0.2 K/uL (0-0.4); EOSINOPHILS % (AUTO) 3.8 % (0.0-4.0); HEMATOCRIT 35.5 % (36-48); HEMOGLOBIN 11.5 g/dL (12.0-16.0); LYMPHOCYTES % (AUTO) 19.3 % (20.5-51.1); MEAN CORPUSCULAR HEMOGLOBIN 25 pg (27-31); MEAN CORPUSCULAR HGB CONC 32 g/dL (33-37); MEAN CORPUSCULAR VOLUME 75.9 fL (80-94); MONOCYTES # (AUTO) 0.4 K/uL (0.8-1.0); MONOCYTES % (AUTO) 8.2 % (1.7-9.3); NEUTROPHILS # (AUTO) 3.5 K/uL (1.8-7.7); NEUTROPHILS % (AUTO) 66.7 % (42.2-75.2); PLATELET COUNT (AUTO) 227 K/uL (140-450); RED BLOOD CELL COUNT(AUTO) 4.69 MIL/uL (4.20-5.40); RED CELL DISTRIBUTION WIDTH 16.7 % (11.6-13.7); WHITE BLOOD COUNT (AUTO) 5.3 K/uL (4.8-10.8)
[2022-05-29] MEDS: BLOOD GLUCOSE MONITORING 1 DEV DEV FS SCH ×5 (07:30→20:43)
[2022-05-29] MEDS: INSULIN LISPRO SLIDING SCALE 100 UNITS/ML VIAL SUBQ PRN ×4 (07:36→20:43)
[2022-05-29] MEDS: MAG SULF 2000 MG/WATER PREMIX 50 ML IV PRN (07:45)
[2022-05-29] MEDS: BUMETANIDE 1 MG/4 ML VIAL IV SCH ×3 (07:52→20:44)
[2022-05-29 08:00] VITALS: BP 125/56
[2022-05-29] MEDS ORDERED: ATORVASTATIN 20 MG TAB PO SCH (09:00)
[2022-05-29] MEDS: ATORVASTATIN 20 MG TAB PO SCH (09:45)
[2022-05-29] MEDS: carvediloL 12.5 MG TAB PO SCH ×2 (09:46→20:44)
[2022-05-29] MEDS: SPIRONOLACTONE 25 MG TAB PO SCH (09:46)
[2022-05-29] MEDS: lisinopriL 5 MG TAB PO SCH (09:47)
[2022-05-29] MEDS: ECOTRIN 81 MG TABEC PO SCH (09:47)
[2022-05-29] MEDS: APIXABAN 2.5 MG TAB PO SCH ×2 (09:49→20:46)
[2022-05-29 12:00] VITALS: BP 131/75
[2022-05-29] MEDS: MORPHINE SULFATE 4 MG/ML SYR IVP PRN ×2 (14:50→22:03)
[2022-05-29 16:00] VITALS: BP 119/62
--- NOTE | 2022-05-29 19:28 | NUR ---
ENDORSE PATIENT IN STABLE CONDITION TO PM SHIFT NURSE WHILE PATIENT REST IN BED. PATIENT COME FROM HOME FOR SOB, COUGH, CHEST PAIN WHICH DIAGNOSIS WITH CHF EXACERBATION, ACUTE ON CHRONIC SYSTOLIC HEART FAILURE WITH EF=20-25%. HX OF COPD, CKD, A. FIB, HLD, HTN, DM, DVT, & CAD. PATIENT ALLERGY TO TRAMADOL, KETAMINE, DEXAMETHASONE, IBUPROFEN, & PREDNISOL. PIV AT L. HAND 22G SALINE LOCK, AMBULATORY. OBSERVATION STATUS.
[2022-05-29 20:00] VITALS: BP 135/78
--- NOTE | 2022-05-29 22:08 | NUR ---
C/O OF ARM PAIN NON RADIATING SHE SAID , BP 124/ 82 , HR 79 , ON TELE MONITOR - WILL MEDICATE
[2022-05-30] VITALS: BP 128/77
[2022-05-30 04:00] VITALS: BP 122/68
--- NOTE | 2022-05-30 04:00 | NUR ---
BP 122/68 , WV 82 , C/O PAIN ON ARM NON RADIATING SHE SAID - WILL MEDICATE
[2022-05-30] MEDS: MORPHINE SULFATE 4 MG/ML SYR IVP PRN ×2 (04:28→10:32)
--- NOTE | 2022-05-30 05:15 | NUR ---
BP RE CHECK 90/61 - WILL CONT. TO MONITOR , CALL LIGHT WITHIN RTEACH , NO S/SX OF ACUTE DISTRESS NOTED
[2022-05-30] MEDS: BUMETANIDE 1 MG/4 ML VIAL IV SCH (05:19)
[2022-05-30 06:30] LABS: BASOPHILS # (AUTO) 0.1 K/uL (0.00-0.22); BASOPHILS % (AUTO) 1.8 % (0.0-2.0); EOSINOPHILS # (AUTO) 0.3 K/uL (0-0.4); HEMATOCRIT 34.9 % (36-48); HEMOGLOBIN 11.1 g/dL (12.0-16.0); LYMPHOCYTES # (AUTO) 1.1 K/uL (2.5-16.5); LYMPHOCYTES % (AUTO) 21.8 % (20.5-51.1); MEAN CORPUSCULAR HEMOGLOBIN 25 pg (27-31); MEAN CORPUSCULAR HGB CONC 32 g/dL (33-37); MEAN CORPUSCULAR VOLUME 77.8 fL (80-94); MONOCYTES # (AUTO) 0.5 K/uL (0.8-1.0); MONOCYTES % (AUTO) 9.5 % (1.7-9.3); NEUTROPHILS # (AUTO) 3.1 K/uL (1.8-7.7); NEUTROPHILS % (AUTO) 60.9 % (42.2-75.2); PLATELET COUNT (AUTO) 220 K/uL (140-450); RED BLOOD CELL COUNT(AUTO) 4.49 MIL/uL (4.20-5.40); RED CELL DISTRIBUTION WIDTH 16.4 % (11.6-13.7)
[2022-05-30] MEDS: INSULIN LISPRO SLIDING SCALE 100 UNITS/ML VIAL SUBQ PRN ×2 (06:42→11:48)
[2022-05-30] MEDS: BLOOD GLUCOSE MONITORING 1 DEV DEV FS SCH ×2 (06:42→11:47)
[2022-05-30 06:48] LABS: ANION GAP 4.4 (8-16); CARBON DIOXIDE 37.4 mmol/L (21-32); CREATININE 1.3 mg/dL (0.6-1.3); POTASSIUM 3.8 mmol/L (3.5-5.1)
--- NOTE | 2022-05-30 07:20 | NUR ---
endorsed pt . for cont. of care , refused change gown .
[2022-05-30 08:00] VITALS: BP 137/76
[2022-05-30] MEDS: lisinopriL 5 MG TAB PO SCH (10:33)
[2022-05-30] MEDS: ECOTRIN 81 MG TABEC PO SCH (10:33)
[2022-05-30] MEDS: carvediloL 12.5 MG TAB PO SCH (10:34)
[2022-05-30] MEDS: SPIRONOLACTONE 25 MG TAB PO SCH (10:34)
[2022-05-30] MEDS: ATORVASTATIN 20 MG TAB PO SCH (10:35)
[2022-05-30] MEDS ORDERED: BUME1TAB92 PO (10:35)
[2022-05-30] MEDS: APIXABAN 2.5 MG TAB PO SCH (10:35)
[2022-05-30] MEDS: MAG SULF 2000 MG/WATER PREMIX 50 ML IV PRN (10:37)
[2022-05-30 12:00] VITALS: BP 136/83
[2022-05-30] MEDS ORDERED: BUMETANIDE 1 MG TAB PO SCH (13:00)
[2022-05-30 13:45] VITALS: BP 137/83
--- NOTE | 2022-05-30 14:36 | NUR ---
DISCHARGE PATIENT HOME PER PATIENT'S REQUEST AND PCP ORDER. IV ACCESS, WRIST BAND, AND TEL MONITOR REMOVE BEFORE WHEEL PATIENT OUT THE FACILITY. DISCHARGE CONSENT SIGNED, DISCHARGE INSTRUCTION GIVEN. PATIENT IS STABLE WHEN WHEEL OUT.
== END 2022-05-30 14:15 | disposition home or self-care (01) ==
LOC: MED 21:11 → MTU 05-28 01:26
PROVIDERS: ADMIT Family Medicine; ATTEND Family Medicine
DX: I13.0 Hypertensive heart and chronic kidney disease with heart failure and stage 1 through stage 4 chronic kidney disease, or unspecified chronic kidney disease (principal); Z20.822 Contact with and (suspected) exposure to COVID-19; E11.22 Type 2 diabetes mellitus with diabetic chronic kidney disease; I50.23 Acute on chronic systolic (congestive) heart failure; N18.9 Chronic kidney disease, unspecified; J96.21 Acute and chronic respiratory failure with hypoxia; I25.5 Ischemic cardiomyopathy; I44.7 Left bundle-branch block, unspecified; I48.0 Paroxysmal atrial fibrillation; E78.5 Hyperlipidemia, unspecified; J44.9 Chronic obstructive pulmonary disease, unspecified; Z79.899 Other long term (current) drug therapy
CPT/HCPCS: 36415; 71045; 80048; 80053; 82948; 83036; 83735; 83880; 84484; 85025; 87081; 94640; 96365; 96366; 96372; 96375; 96376; 99284; G0378; J1940; J2060; J2270; J2405; J3475; J3490; J7613; J7644; Q0092

== ENCOUNTER 2022-06-12 22:36 | Inpatient (IN) | payer MEDICAID ==
[~2022-06-12] VITALS: Ht 172.7 cm; Wt 121.6 kg
[2022-06-12 22:45] VITALS: BP 175/102
--- NOTE | 2022-06-12 22:55 | NUR ---
Patient taken to bed 8.
--- NOTE | 2022-06-12 23:00 | NUR ---
X-Ray at bedside.
--- NOTE | 2022-06-12 23:00 | NUR ---
Patient received on bed lying and awake. Alert and oriented x4. No acute distress. Patient is on 2 L/min oxygen via nasal cannula. Patient complained of chest pain with scale of 10/10.
[2022-06-12 23:33] LABS: BASOPHILS # (AUTO) 0.1 K/uL (0.00-0.22); BASOPHILS % (AUTO) 1.1 % (0.0-2.0); EOSINOPHILS # (AUTO) 0.2 K/uL (0-0.4); EOSINOPHILS % (AUTO) 2.9 % (0.0-4.0); HEMATOCRIT 37.5 % (36-48); HEMOGLOBIN 11.9 g/dL (12.0-16.0); LYMPHOCYTES # (AUTO) 1.2 K/uL (2.5-16.5); LYMPHOCYTES % (AUTO) 20.7 % (20.5-51.1); MEAN CORPUSCULAR HEMOGLOBIN 25 pg (27-31); MEAN CORPUSCULAR HGB CONC 32 g/dL (33-37); MEAN CORPUSCULAR VOLUME 77.3 fL (80-94); MONOCYTES # (AUTO) 0.4 K/uL (0.8-1.0); MONOCYTES % (AUTO) 6.5 % (1.7-9.3); NEUTROPHILS # (AUTO) 4.1 K/uL (1.8-7.7); NEUTROPHILS % (AUTO) 68.8 % (42.2-75.2); PLATELET COUNT (AUTO) 257 K/uL (140-450); RED BLOOD CELL COUNT(AUTO) 4.85 MIL/uL (4.20-5.40); RED CELL DISTRIBUTION WIDTH 16.8 % (11.6-13.7)
[2022-06-12 23:59] LABS: CREATININE 1.8 mg/dL (0.6-1.3); POTASSIUM 4.2 mmol/L (3.5-5.1)
--- NOTE | 2022-06-13 00:04 | NUR ---
Patient received on bed lying comfortably and awake. Alert and oriented x4. No acute distress. Complained of chest pain with scale of 10/10. Patient was placed on 2 L/min oxygen via nasal cannula.
[2022-06-13] MEDS ORDERED: ALBUTEROL 0.083% 2.5 MG/3 ML NEBU INH ONE (00:25)
[2022-06-13] MEDS ORDERED: IPRATROPIUM 0.02% 0.5 MG/2.5 ML NEBU INH ONE (00:25)
[2022-06-13] MEDS ORDERED: MAG SULF 2000 MG/WATER PREMIX 50 ML IV ONE (00:25)
[2022-06-13] MEDS ORDERED: FUROSEMIDE 40 MG/4 ML VIAL IVP ONE (00:25)
[2022-06-13] MEDS ORDERED: INSULIN REGULAR, HUMAN 100 UNIT/ML VIAL IVP ONE (00:30)
[2022-06-13] MEDS ORDERED: MORPHINE SULFATE 4 MG/ML SYR IVP ONE (02:00)
[2022-06-13 02:24] LABS: ANION GAP 12.7 (8-16); CARBON DIOXIDE 29.5 mmol/L (21-32); TOTAL BILIRUBIN 0.5 mg/dL (0.0-1.0)
[2022-06-13] MEDS ORDERED: CLONIDINE HYDROCHLORIDE 0.1 MG TAB PO ONE (05:05)
[2022-06-13] MEDS ORDERED: CLONIDINE HYDROCHLORIDE 0.1 MG TAB ONE (05:06)
--- NOTE | 2022-06-13 07:32 | NUR ---
Gave report to BELINDA Luna for continuation of care.
[2022-06-13 08:04] VITALS: BP 148/90
--- NOTE | 2022-06-13 08:04 | NUR ---
PT BROUGHT IN FROM ED IN STABLE CONDITION, ON 5L NC. WILL TITRATE DOWN TO BASELINE, 2L. PT REPORTS 8/10 PAIN IN BACK, MD AWARE, PENDING PRN ORDERS. FULL ASSESSMENT COMPLETE, VSS. CALL LIGHT WITHIN REACH, ALL SAFETY MEASURES IN PLACE.
[2022-06-13] MEDS: oxyCODONE 5 MG TAB PO SCH ×2 (09:00→20:27)
--- NOTE | 2022-06-13 09:22 | NUR ---
PATIENT HAS BEEN SCREENED AND CATEGORIZED MODERATE NUTRITION RISK. PATIENT WILL BE SEEN WITHIN 3-5 DAYS OF ADMISSION. 06/13/22-06/18/[address]
--- NOTE | 2022-06-13 10:05 | NUR ---
Patient will be admitted to care of DR KING. Admited to [facility]. Will go to room 121B. Belongings list completed. Report to MELITON.
[2022-06-13] MEDS ORDERED: LORazepam 2 MG/ML VIAL IVP PRN (10:10)
[2022-06-13] MEDS ORDERED: DEXTROSE 50% 50 ML SYR IVP PRN (10:10)
[2022-06-13] MEDS ORDERED: NITROGLYCERIN 0.4 MG TAB SL SCH (10:10)
[2022-06-13] MEDS ORDERED: HYDROcodone/APAP 5/325 MG 1 TAB TAB PO PRN (10:10)
[2022-06-13] MEDS ORDERED: CLONIDINE HYDROCHLORIDE 0.1 MG TAB PO PRN (10:10)
[2022-06-13] MEDS ORDERED: ALBUTEROL 0.083% 2.5 MG/3 ML NEBU INH PRN (10:10)
[2022-06-13] MEDS ORDERED: ONDANSETRON 4 MG/2 ML VIAL IVP PRN (10:10)
[2022-06-13] MEDS ORDERED: ACETAMINOPHEN 325 MG TAB PO PRN (10:10)
[2022-06-13] MEDS ORDERED: CRUSHER, PILL MC ONE (11:06)
[2022-06-13] MEDS: SPIRONOLACTONE 50 MG TAB PO SCH (11:09)
[2022-06-13] MEDS: ASPIRIN 81 MG TAB.CHEW PO SCH (11:09)
[2022-06-13] MEDS: carvediloL 12.5 MG TAB PO SCH ×2 (11:09→20:42)
[2022-06-13] MEDS: APIXABAN 2.5 MG TAB PO SCH ×2 (11:09→20:41)
[2022-06-13] MEDS: MORPHINE SULFATE 2 MG/ML SYR IVP PRN ×3 (11:52→22:06)
[2022-06-13 12:00] VITALS: BP 151/92
[2022-06-13] MEDS: BLOOD GLUCOSE MONITORING 1 DEV DEV FS SCH ×3 (12:03→20:21)
[2022-06-13] MEDS: INSULIN LISPRO SLIDING SCALE 100 UNITS/ML VIAL SUBQ PRN ×3 (12:04→20:48)
[2022-06-13] MEDS: hydrALAZINE 10 MG TAB PO SCH ×2 (13:28→17:32)
[2022-06-13] MEDS: BUMETANIDE 1 MG TAB PO SCH ×2 (13:29→17:33)
--- NOTE | 2022-06-13 14:23 | NUR ---
SPOKE WITH CARDIOLOGY MD REGARDING RECENT ECHO FROM 3 MONTHS PRIOR STATES OK TO DC CURRENT ECHO ORDER
[2022-06-13 16:00] VITALS: BP 106/71
--- NOTE | 2022-06-13 16:26 | NUR ---
STACI CARREON AT BEDSIDE, NO ACUTE S/S OF DISTRESS.
[2022-06-13 17:30] VITALS: BP 140/90
[2022-06-13] MEDS ORDERED: metOLazone 5 MG TAB PO SCH (18:00)
--- NOTE | 2022-06-13 18:57 | NUR ---
PT. CURRENTLY EATING, ALL NEEDS MET, CALL LIGHT IN REACH, NO CURRENT DISTRESS.
--- NOTE | 2022-06-13 19:16 | NUR ---
REPORT GIVEN TO DAVE DREW
--- NOTE | 2022-06-13 19:51 | NUR ---
RECEIVED REPORT FROM DAY SHIFT NURSE FOR CONTINUITY OF CARE. PT IS AWAKE, ALERT AND ORIENTED X4. CURRENTLY ON 2 LITERS NASAL CANULA WITH NO APPARENT SIGNS OF ACUTE DISTRESS NOTED. PT IS COMPLAINING OF BACK PAIN ON A SCALE OF 8/10. PT IS ABLE TO AMBULATE WITH A CANE TO THE RESTROOM BUT PREFERS THE PUREWICK. IV SITE LOCATED AT LEFT HAND 20 GAUGE, INTACT AND PATENT, SALINE LOCK. SAFETY MEASURES IN PLACE, CALL LIGHT WITHIN REACH, WILL MAKE FREQUENT ROUNDS.
[2022-06-13] MEDS ORDERED: lisinopriL 5 MG TAB PO SCH (21:00)
[2022-06-13] MEDS ORDERED: INSULIN LANTUS 100 UNITS/ML 10 ML VIAL SUBQ SCH (21:00)
[2022-06-13] MEDS ORDERED: ATORVASTATIN 20 MG TAB PO SCH (21:00)
[2022-06-13 23:18] VITALS: BP 150/89
--- NOTE | 2022-06-14 01:32 | NUR ---
PT 2100 BG CHECK = 192. 2 UNITS OF INSULIN WAS ADMINISTERED. MORPHINE 2MG PRN WAS ADMINISTERED BY REGISTRY NURSE STEVAN. ALL OTHER SCHEDULED MEDICATIONS ADMINISTERED WITH NO COMPLICATIONS, WILL CONTINUE TO MONITOR.
[2022-06-14] MEDS: MORPHINE SULFATE 2 MG/ML SYR IVP PRN ×3 (02:37→13:18)
[2022-06-14 04:00] VITALS: BP 134/76
[2022-06-14] MEDS: BUMETANIDE 1 MG/4 ML VIAL IV SCH ×2 (05:37→12:47)
[2022-06-14] MEDS: BLOOD GLUCOSE MONITORING 1 DEV DEV FS SCH ×2 (07:05→11:30)
[2022-06-14 07:06] LABS: BASOPHILS # (AUTO) 0.1 K/uL (0.00-0.22); BASOPHILS % (AUTO) 1.6 % (0.0-2.0); EOSINOPHILS # (AUTO) 0.3 K/uL (0-0.4); EOSINOPHILS % (AUTO) 4.4 % (0.0-4.0); HEMATOCRIT 36.9 % (36-48); HEMOGLOBIN 11.6 g/dL (12.0-16.0); LYMPHOCYTES # (AUTO) 1.4 K/uL (2.5-16.5); MEAN CORPUSCULAR HEMOGLOBIN 24 pg (27-31); MEAN CORPUSCULAR HGB CONC 31 g/dL (33-37); MEAN CORPUSCULAR VOLUME 76.7 fL (80-94); MONOCYTES # (AUTO) 0.4 K/uL (0.8-1.0); MONOCYTES % (AUTO) 6.8 % (1.7-9.3); NEUTROPHILS # (AUTO) 3.7 K/uL (1.8-7.7); NEUTROPHILS % (AUTO) 63.2 % (42.2-75.2); PLATELET COUNT (AUTO) 270 K/uL (140-450); RED BLOOD CELL COUNT(AUTO) 4.81 MIL/uL (4.20-5.40); RED CELL DISTRIBUTION WIDTH 16.6 % (11.6-13.7); WHITE BLOOD COUNT (AUTO) 5.8 K/uL (4.8-10.8)
[2022-06-14] MEDS: INSULIN LISPRO SLIDING SCALE 100 UNITS/ML VIAL SUBQ PRN ×2 (07:06→12:49)
[2022-06-14 07:24] LABS: MAGNESIUM 1.5 mg/dL (1.8-2.4); PHOSPHORUS 5.9 mg/dL (2.5-4.9)
[2022-06-14 07:25] LABS: ANION GAP 7.6 (8-16); CARBON DIOXIDE 35.6 mmol/L (21-32); CREATININE 1.6 mg/dL (0.6-1.3); POTASSIUM 4.2 mmol/L (3.5-5.1)
--- NOTE | 2022-06-14 07:30 | NUR ---
RECEIVED REPORT WITH SHADE RN FROM ELECTRICAL JOURNEYMAN NURSE, DAVE DREW, FOR CONTINUITY OF CARE. ALL NIGHT EVENTS DISCUSSED. PT STABLE IN BED ABLE TO MAKE NEEDS KNOWN. NO ACUTE S/S OF DISTRESS. ALL SAFETY MEASURES IN PLACE, CALL LIGHT WITHIN REACH.
--- NOTE | 2022-06-14 07:43 | NUR ---
PT SLEPT WELL THROUGHOUT THE NIGHT. LAST GLUCOSE CHECK = 164, 2 UNITS OF HUMALOG WAS ADMINISTERED. NO BM DURING VOUCHER EXAMINER, 1700 ML'S DRAINED FROM PUREWICK. ENDORSED PT TO DAY SHIFT NURSE IN STABLE CONDITION.
[2022-06-14 08:00] VITALS: BP 142/82
--- NOTE | 2022-06-14 08:05 | NUR ---
CALLED [facility] REGARDING PT STATING SHE ONLY RECEIVED TOAST FOR BREAKFAST, REQUESTING SOMETHING ELSE TO GO WITH IT.
[2022-06-14] MEDS: ASPIRIN 81 MG TAB.CHEW PO SCH (08:27)
[2022-06-14] MEDS: hydrALAZINE 10 MG TAB PO SCH ×2 (08:28→12:46)
[2022-06-14] MEDS: carvediloL 12.5 MG TAB PO SCH (08:28)
[2022-06-14] MEDS: APIXABAN 2.5 MG TAB PO SCH (08:29)
[2022-06-14] MEDS: oxyCODONE 5 MG TAB PO SCH (08:31)
[2022-06-14] MEDS: SPIRONOLACTONE 50 MG TAB PO SCH (08:32)
[2022-06-14] MEDS ORDERED: FUROSEMIDE 40 MG/4 ML VIAL IVP SCH (09:00)
[2022-06-14] MEDS ORDERED: metOLazone 5 MG TAB PO SCH (09:00)
[2022-06-14] MEDS ORDERED: NITROGLYCERIN 0.4 MG TAB SL PRN (10:16)
[2022-06-14] MEDS ORDERED: MAG SULF 2000 MG/WATER PREMIX 50 ML IV SCH (12:00)
[2022-06-14 13:31] VITALS: BP 116/76
[2022-06-14 14:19] VITALS: BP 116/76
--- NOTE | 2022-06-14 15:38 | NUR ---
DISCUSSED DISCHARGE TEACHING WITH PATIENT, INFORMED WHERE TO NUCLEAR PLANT OPERATOR MEDICATIONS, REINFORCED EDUCATION ON HEART FAILURE DIET AND EXERCISE. PER PT. GRANDSON WILL NOT BE BRINGING O2 TANK WITH HIM STATES SHE ONLY USES OXYGEN NEEDED AND WILLBE FINE FOR RIDE HOME WITHOUT IT. PT. SATTING 98% ON ROOM AIR. REMOVED TELE BOX AND IV. PT. ESCORTED TO LOBBY BY STAFF
== END 2022-06-14 15:35 | disposition home or self-care (01) | DRG 140 ==
LOC: MED 22:36 → MTU 06-13 04:05
PROVIDERS: ADMIT Preventive Medicine Preventive Medicine/Occupational Environmental Medicine; ATTEND Preventive Medicine Preventive Medicine/Occupational Environmental Medicine
DX: J44.1 Chronic obstructive pulmonary disease with (acute) exacerbation (principal); N17.0 Acute kidney failure with tubular necrosis; I50.23 Acute on chronic systolic (congestive) heart failure; E44.0 Moderate protein-calorie malnutrition; J96.10 Chronic respiratory failure, unspecified whether with hypoxia or hypercapnia; E87.1 Hypo-osmolality and hyponatremia; I48.0 Paroxysmal atrial fibrillation; I13.0 Hypertensive heart and chronic kidney disease with heart failure and stage 1 through stage 4 chronic kidney disease, or unspecified chronic kidney disease; Z68.41 Body mass index [BMI] 40.0-44.9, adult; E11.22 Type 2 diabetes mellitus with diabetic chronic kidney disease; E78.5 Hyperlipidemia, unspecified; E66.01 Morbid (severe) obesity due to excess calories; E11.65 Type 2 diabetes mellitus with hyperglycemia; N18.30 Chronic kidney disease, stage 3 unspecified; Z20.822 Contact with and (suspected) exposure to COVID-19; I25.5 Ischemic cardiomyopathy; I44.7 Left bundle-branch block, unspecified; Z88.6 Allergy status to analgesic agent; Z88.8 Allergy status to other drugs, medicaments and biological substances
CPT/HCPCS: 36415; 71045; 80048; 80053; 82948; 83735; 83880; 84100; 84484; 85025; 87081; 94640; 96365; 96375; 99285; J1815; J1940; J2270; J3475; J3490; J7613; J7644; Q0092

== ENCOUNTER 2022-07-04 20:43 | Inpatient (IN) | payer MEDICAID ==
[~2022-07-04] VITALS: Ht 172.7 cm; Wt 121.6 kg
[2022-07-04 20:45] VITALS: BP 164/104
--- NOTE | 2022-07-04 21:07 | NUR ---
Pt triaged and placed in WR. EKG done and reported to MD Navarro. Pt in no acute distress at this time.
[2022-07-04 21:43] LABS: BASOPHILS # (AUTO) 0.1 K/uL (0.00-0.22); EOSINOPHILS # (AUTO) 0.1 K/uL (0-0.4); EOSINOPHILS % (AUTO) 2.1 % (0.0-4.0); HEMATOCRIT 41.8 % (36-48); HEMOGLOBIN 13.6 g/dL (12.0-16.0); LYMPHOCYTES # (AUTO) 1.7 K/uL (2.5-16.5); LYMPHOCYTES % (AUTO) 28.2 % (20.5-51.1); MEAN CORPUSCULAR HEMOGLOBIN 24 pg (27-31); MEAN CORPUSCULAR HGB CONC 33 g/dL (33-37); MONOCYTES # (AUTO) 0.4 K/uL (0.8-1.0); NEUTROPHILS # (AUTO) 3.7 K/uL (1.8-7.7); NEUTROPHILS % (AUTO) 61.7 % (42.2-75.2); PLATELET COUNT (AUTO) 214 K/uL (140-450); RED BLOOD CELL COUNT(AUTO) 5.57 MIL/uL (4.20-5.40); RED CELL DISTRIBUTION WIDTH 16.7 % (11.6-13.7)
[2022-07-04 21:56] LABS: ALBUMIN 2.9 g/dL (3.4-5.0); ANION GAP 10.2 (8-16); CARBON DIOXIDE 30.1 mmol/L (21-32); CREATININE 1.6 mg/dL (0.6-1.3); POTASSIUM 4.3 mmol/L (3.5-5.1); TOTAL BILIRUBIN 0.2 mg/dL (0.0-1.0)
--- NOTE | 2022-07-04 22:21 | NUR ---
MD Alcantara assessing pt at this time.
[2022-07-04] MEDS ORDERED: ASPIRIN 325 MG TAB PO ONE (22:40)
--- NOTE | 2022-07-04 23:27 | NUR ---
Patient resting in bed A/Ox4, chest rise and fall symmetrical, no s/s of distress, patient on monitor.
--- NOTE | 2022-07-05 01:53 | NUR ---
Patient resting in bed A/Ox4, chest rise and fall symmetrical, no s/s of distress, patient on monitor.
[2022-07-05] MEDS ORDERED: HYDROcodone/APAP 5/325 MG 1 TAB TAB PO PRN ×2 (02:25→10:00)
[2022-07-05] MEDS ORDERED: ACETAMINOPHEN 325 MG TAB PO PRN (02:25)
[2022-07-05] MEDS ORDERED: HYDROcodone/APAP 10/325 MG 1 TAB TAB PO PRN ×2 (02:25→10:00)
--- NOTE | 2022-07-05 02:28 | NUR ---
Received telephone orders from Dr. Dolan, admitting physician. Dr. Dolan verbalized that he is aware of patient's allergy list and is ok to give ordered medications. Addendum: 07/05/22 at 0508 by [id number] Received telephone orders from Dr. Dolan, admitting physician. Dr. Dolan verbalized that he is aware of patient's allergy list and is ok to give ordered medications. Dr. Dolan verbalized understanding of patient's heart rate.
[2022-07-05] MEDS ORDERED: HYDROcodone/APAP 10/325 MG 1 TAB TAB ONE (02:30)
--- NOTE | 2022-07-05 02:45 | NUR ---
Patient resting in bed A/Ox4, chest rise and fall symmetrical, no s/s of distress, patient on monitor.
--- NOTE | 2022-07-05 04:00 | NUR ---
Patient resting in bed A/Ox4, chest rise and fall symmetrical, no s/s of distress, patient on monitor.
[2022-07-05] MEDS ORDERED: DEXTROSE 50% 50 ML SYR IVP PRN (06:10)
--- NOTE | 2022-07-05 06:12 | NUR ---
Patient resting in bed A/Ox4, chest rise and fall symmetrical, no s/s of distress, patient on monitor.
[2022-07-05] MEDS: BLOOD GLUCOSE MONITORING 1 DEV DEV FS SCH ×4 (06:30→21:49)
[2022-07-05] MEDS: INSULIN LISPRO SLIDING SCALE 100 UNITS/ML VIAL SUBQ PRN ×4 (06:32→21:51)
--- NOTE | 2022-07-05 07:31 | NUR ---
Change of shift report given to AM shift nurse Jeremy RN. Jeremy RN verbalized understanding of report, no further questions.
--- NOTE | 2022-07-05 09:30 | NUR ---
Patient will be admitted to care of DR KING. Admited to TELE. Will go to room 112B. Belongings list completed. Report to BREA.
--- NOTE | 2022-07-05 09:37 | NUR ---
PATIENT HAS BEEN SCREENED AND CATEGORIZED MODERATE NUTRITION RISK. PATIENT WILL BE SEEN WITHIN 3-5 DAYS OF ADMISSION. REVIEWED BY DAVIDSON PETE RD
[2022-07-05] MEDS ORDERED: NITROGLYCERIN 0.4 MG TAB SL SCH (10:00)
[2022-07-05] MEDS ORDERED: CLONIDINE HYDROCHLORIDE 0.1 MG TAB PO PRN (10:00)
[2022-07-05 13:21] VITALS: BP 142/86
[2022-07-05] MEDS: BUMETANIDE 1 MG TAB PO SCH ×2 (13:30→17:51)
[2022-07-05] MEDS: hydrALAZINE 10 MG TAB PO SCH ×2 (13:31→17:51)
[2022-07-05] MEDS: MORPHINE SULFATE 2 MG/ML SYR IVP PRN ×2 (14:29→21:40)
[2022-07-05 16:50] LABS: APPEARANCE,URINE CLEAR (CLEAR); BILIRUBIN,URINE NEGATIVE (NEGATIVE); BLOOD, URINE 3+ (NEGATIVE); COLOR,URINE YELLOW (YELLOW); LEUKOCYTE ESTERASE ,URINE NEGATIVE (NEGATIVE); NITRITE, URINE NEGATIVE (NEGATIVE); UGLUCOSE 3+ (NEGATIVE)
[2022-07-05 17:01] LABS: RBC,URINE 11-20 (MOD) /HPF (0-5)
[2022-07-05 17:02] LABS: WBC,URINE 0-5 /HPF (0-5)
--- NOTE | 2022-07-05 19:40 | NUR ---
GAVE REPORT TO THE NIGHT NURSE,ASHA
[2022-07-05 20:00] VITALS: BP 136/87
--- NOTE | 2022-07-05 20:00 | NUR ---
PATIENT AWAKE ALERT VERBALLY RESPONSIVE. NO SOB NOTED ON ROOM AIR. IV SITE TO THE LEFT AC SALINE LOCK. CALL LIGHT WITHIN REACH. SAFETY MEASURES IN PLACE. NEEDS ATTENDED TO.
[2022-07-05] MEDS: oxyCODONE 5 MG TAB PO SCH ×2 (21:00→21:36)
[2022-07-05] MEDS: carvediloL 12.5 MG TAB PO SCH (21:34)
--- NOTE | 2022-07-05 21:34 | NUR ---
SCHEDULED DUE MEDICATIONS ADMINISTERED.
[2022-07-05] MEDS: ATORVASTATIN 20 MG TAB PO SCH (21:35)
[2022-07-05] MEDS: APIXABAN 2.5 MG TAB PO SCH (21:44)
[2022-07-05] MEDS: INSULIN LANTUS 100 UNITS/ML 10 ML VIAL SUBQ SCH (21:52)
[2022-07-06] VITALS: BP 91/61
[2022-07-06 04:00] VITALS: BP 119/81
[2022-07-06] MEDS: MORPHINE SULFATE 2 MG/ML SYR IVP PRN ×3 (06:17→22:27)
--- NOTE | 2022-07-06 06:17 | NUR ---
PATIENT COMPLAINED OF SEVERE BACK PAIN 12/04, MEDICATED WITH MORPHINE IVP.
--- NOTE | 2022-07-06 06:33 | NUR ---
CHECKED BLOOD SUGAR WAS 318, HUMALOG INSULIN ADMINISTERED ORDERED PER SLIDING SCALE.
[2022-07-06] MEDS: INSULIN LISPRO SLIDING SCALE 100 UNITS/ML VIAL SUBQ PRN ×4 (06:35→21:16)
[2022-07-06] MEDS: BLOOD GLUCOSE MONITORING 1 DEV DEV FS SCH ×4 (06:35→20:40)
[2022-07-06 07:00] LABS: BASOPHILS # (AUTO) 0.1 K/uL (0.00-0.22); BASOPHILS % (AUTO) 1.2 % (0.0-2.0); EOSINOPHILS # (AUTO) 0.1 K/uL (0-0.4); HEMATOCRIT 42.8 % (36-48); HEMOGLOBIN 13.5 g/dL (12.0-16.0); LYMPHOCYTES # (AUTO) 1.6 K/uL (2.5-16.5); LYMPHOCYTES % (AUTO) 33.4 % (20.5-51.1); MEAN CORPUSCULAR HEMOGLOBIN 24 pg (27-31); MEAN CORPUSCULAR HGB CONC 32 g/dL (33-37); MEAN CORPUSCULAR VOLUME 75.3 fL (80-94); MONOCYTES # (AUTO) 0.3 K/uL (0.8-1.0); MONOCYTES % (AUTO) 7.2 % (1.7-9.3); NEUTROPHILS # (AUTO) 2.6 K/uL (1.8-7.7); NEUTROPHILS % (AUTO) 55.2 % (42.2-75.2); PLATELET COUNT (AUTO) 190 K/uL (140-450); RED BLOOD CELL COUNT(AUTO) 5.68 MIL/uL (4.20-5.40); RED CELL DISTRIBUTION WIDTH 17.1 % (11.6-13.7); WHITE BLOOD COUNT (AUTO) 4.7 K/uL (4.8-10.8)
--- NOTE | 2022-07-06 07:16 | NUR ---
ENDORSED PATIENT TO AM NURSE SHIFT FOR CONTINUITY OF CARE.
--- NOTE | 2022-07-06 07:22 | NUR ---
GOT REPORT FROM THE NIGHT NURSE, PT IS SLEEPING.[id number]
[2022-07-06 07:23] LABS: ALBUMIN 2.5 g/dL (3.4-5.0); ANION GAP 11.8 (8-16); CARBON DIOXIDE 30.4 mmol/L (21-32); CREATININE 1.5 mg/dL (0.6-1.3); MAGNESIUM 1.5 mg/dL (1.8-2.4); PHOSPHORUS 5.2 mg/dL (2.5-4.9); POTASSIUM 4.2 mmol/L (3.5-5.1); TOTAL BILIRUBIN 0.3 mg/dL (0.0-1.0)
[2022-07-06 08:00] VITALS: BP 122/71
[2022-07-06] MEDS: BUMETANIDE 1 MG TAB PO SCH ×3 (08:13→16:35)
[2022-07-06] MEDS: ASPIRIN 81 MG TAB.CHEW PO SCH (08:13)
[2022-07-06] MEDS: lisinopriL 5 MG TAB PO SCH (08:14)
[2022-07-06] MEDS: hydrALAZINE 10 MG TAB PO SCH ×3 (08:14→16:36)
[2022-07-06] MEDS: SPIRONOLACTONE 50 MG TAB PO SCH (08:14)
[2022-07-06] MEDS: carvediloL 12.5 MG TAB PO SCH ×2 (08:15→21:00)
[2022-07-06] MEDS: oxyCODONE 5 MG TAB PO SCH ×2 (08:15→21:00)
[2022-07-06] MEDS: APIXABAN 2.5 MG TAB PO SCH ×2 (08:18→21:10)
[2022-07-06] MEDS ORDERED: ONDANSETRON 4 MG/2 ML VIAL IVP PRN (10:55)
[2022-07-06 12:00] VITALS: BP 108/65
[2022-07-06 16:00] VITALS: BP 99/61
--- NOTE | 2022-07-06 17:28 | NUR ---
PT BP 94\67 HELD HYDRALAZINE AND BUMETANIDE, DR KING AWARE , WILL MONITOR. [id number]
[2022-07-06] MEDS ORDERED: MAG SULF 2000 MG/WATER PREMIX 50 ML IV ONE (17:53)
[2022-07-06] MEDS ORDERED: MAG SULF 2000 MG/WATER PREMIX 50 ML IV SCH (18:00)
--- NOTE | 2022-07-06 19:32 | NUR ---
GAVE REPORT TO THE NIGHT NURSE, OFF THE SHIFT.[id number]
[2022-07-06 20:00] VITALS: BP 98/74
--- NOTE | 2022-07-06 21:00 | NUR ---
PT REFUSED TO TAKE ROXICODONE, PT STATED SHE FEELS SICK WHEN TAKING THIS MEDICATION.
--- NOTE | 2022-07-06 21:00 | NUR ---
CARVEDILOL IS HELD AT THIS TIME, PT BP IS 98/74. PT REFUSE TO TAKE THIS MEDICATION.
[2022-07-06] MEDS: ATORVASTATIN 20 MG TAB PO SCH (21:10)
--- NOTE | 2022-07-06 21:16 | NUR ---
BLOOD SUGAR CHECKED = 245 = 4 UNITS HUMALOG INSULIN ADMINISTERED.
--- NOTE | 2022-07-06 21:16 | NUR ---
BLOOD SUGAR CHECKED = 245 = 4 UNITS OF HUMALOG INSULIN ADMINISTERED ORDER.
[2022-07-06] MEDS: INSULIN LANTUS 100 UNITS/ML 10 ML VIAL SUBQ SCH (21:18)
--- NOTE | 2022-07-06 22:27 | NUR ---
PT COMPLAINTS OF BODY ACHE AND PAIN ON LEFT CHEST, PAIN MEDICATION MORPHINE ADMINISTERED ORDER.
--- NOTE | 2022-07-06 23:27 | NUR ---
PT STATED, PAIN IS REDUCED FROM 7/10 TO 1/10. PT VERBALIZED OF COMFORT.
[2022-07-07] VITALS: BP 103/69
[2022-07-07 04:00] VITALS: BP 106/67
[2022-07-07] MEDS: BLOOD GLUCOSE MONITORING 1 DEV DEV FS SCH ×4 (06:45→21:08)
[2022-07-07] MEDS: INSULIN LISPRO SLIDING SCALE 100 UNITS/ML VIAL SUBQ PRN ×3 (06:51→21:09)
--- NOTE | 2022-07-07 06:51 | NUR ---
BLOOD SUGAR CHECKED = 159 = 2 UNITS OF HUMOLOG INSULIN.
--- NOTE | 2022-07-07 07:00 | NUR ---
V/S CHECKED BP-124/71, P-79, T-97.3, O2 SAT 98% AT 2 LPM, R-18. PT IS ON STABLE CONDITION.
--- NOTE | 2022-07-07 07:30 | NUR ---
RECEIVED PATIENT FROM PM NURSE FOR CONTINUATION OF CARE. PATIENT SEEN ON BED ASLEEP. SNORING NORMAL RISE AND FALL OF CHEST. CARE AND OBSERVATION RESUMED.
--- NOTE | 2022-07-07 07:30 | NUR ---
PT IS ON STABLE CONDITION, NO SOB OR DISTRESS. SAFETY MEASURES ARE IN PLACE, ENDORSED TO DAY SHIFT NURSE ILIANA FOR CONTINUITY OF CARE.
[2022-07-07 08:00] VITALS: BP_SYST 115; BP_SYST 120; BP_DIAS 66; BP_DIAS 88
[2022-07-07] MEDS: carvediloL 12.5 MG TAB PO SCH ×2 (09:00→21:20)
[2022-07-07] MEDS: BUMETANIDE 1 MG TAB PO SCH (09:38)
[2022-07-07] MEDS: oxyCODONE 5 MG TAB PO SCH ×2 (09:38→21:00)
[2022-07-07] MEDS: hydrALAZINE 10 MG TAB PO SCH ×3 (09:38→17:20)
[2022-07-07] MEDS: ASPIRIN 81 MG TAB.CHEW PO SCH (09:39)
[2022-07-07] MEDS: SPIRONOLACTONE 50 MG TAB PO SCH (09:39)
[2022-07-07] MEDS: lisinopriL 5 MG TAB PO SCH (09:40)
[2022-07-07] MEDS: APIXABAN 2.5 MG TAB PO SCH ×2 (09:40→21:25)
[2022-07-07 10:21] LABS: BASOPHILS # (AUTO) 0.1 K/uL (0.00-0.22); BASOPHILS % (AUTO) 1.5 % (0.0-2.0); EOSINOPHILS # (AUTO) 0.2 K/uL (0-0.4); EOSINOPHILS % (AUTO) 3.6 % (0.0-4.0); HEMATOCRIT 42.5 % (36-48); HEMOGLOBIN 13.4 g/dL (12.0-16.0); LYMPHOCYTES # (AUTO) 1.5 K/uL (2.5-16.5); LYMPHOCYTES % (AUTO) 26.2 % (20.5-51.1); MEAN CORPUSCULAR HEMOGLOBIN 24 pg (27-31); MEAN CORPUSCULAR HGB CONC 32 g/dL (33-37); MONOCYTES # (AUTO) 0.5 K/uL (0.8-1.0); MONOCYTES % (AUTO) 7.9 % (1.7-9.3); NEUTROPHILS # (AUTO) 3.5 K/uL (1.8-7.7); NEUTROPHILS % (AUTO) 60.8 % (42.2-75.2); PLATELET COUNT (AUTO) 214 K/uL (140-450); RED BLOOD CELL COUNT(AUTO) 5.59 MIL/uL (4.20-5.40); RED CELL DISTRIBUTION WIDTH 16.9 % (11.6-13.7); WHITE BLOOD COUNT (AUTO) 5.8 K/uL (4.8-10.8)
[2022-07-07] MEDS: MORPHINE SULFATE 2 MG/ML SYR IVP PRN ×2 (10:45→17:21)
[2022-07-07 11:06] LABS: ANION GAP 12.2 (8-16); CARBON DIOXIDE 31.7 mmol/L (21-32); POTASSIUM 4.9 mmol/L (3.5-5.1)
[2022-07-07 12:00] VITALS: BP 119/86
--- NOTE | 2022-07-07 12:00 | NUR ---
PATIENT VITALS STABLE. PATIENT COMMUNICATES AND NO ABNORMALITIES IN BLOOD PRESSURE PATTERNS.
[2022-07-07 16:00] VITALS: BP 129/73
--- NOTE | 2022-07-07 16:08 | NUR ---
07/07/22 RD INITIAL ASSESSMENT COMPLETED PLEASE REFER TO NUTRITION ASSESSMENT UNDER CARE ACTIVITY FOR ESTIMATED NUTRITIONAL NEEDS. 1. RECOMMEND ADDING CARDIAC TO [id number] DIET TOLERATED 2. MONITOR PO INTAKE AND NUTRITION RELATED LAB VALUES 3. RD TO FOLLOW-UP 7 DAYS, LOW RISK REVIEWED BY DAVIDSON PETE RD
--- NOTE | 2022-07-07 19:47 | NUR ---
ENDORSED TO PM NURSE FOR CONTINUATION OF CARE
--- NOTE | 2022-07-07 19:48 | NUR ---
RECEIVED SHIFT REPORT FOR CONTINUITY OF CARE FROM ILIANA RN, PATIENT WAS IN BED RESTING. RESPOND WHEN NAME WAS CALLED. NO COMPLAINTS OF PAIN/DISCOMFORT. NO S/S OF RESPIRATORY DISTRESS. OXYGEN SATURATION WAS 90 BUT SHE ADJUSTED IN BED TO BRING IT UP. SIDE RAILS UP X 2 AND CALL LIGHT IN REACH. [email or web address]
[2022-07-07 20:00] VITALS: BP 116/68
--- NOTE | 2022-07-07 20:00 | NUR ---
Patient's Plan of Care was discussed and reviewed with MICHAEL DREW:
[2022-07-07] MEDS: INSULIN LANTUS 100 UNITS/ML 10 ML VIAL SUBQ SCH (21:11)
[2022-07-07] MEDS: ATORVASTATIN 20 MG TAB PO SCH (21:21)
--- NOTE | 2022-07-07 23:34 | NUR ---
PATIENT WANTED PAIN MEDICATION BUT BLOOD PRESSURE WAS NOTED TOO LOW FOR MORPHINE. PATIENT DECLINED ANY OTHER MEDICATION. PATIENT WAS EDUCATED ON THE IMPORTANCE OF THE BLOOD PRESSURE NEEDING TO BE WITHIN STANDARD OF CARE LEVELS BEFORE ADMINISTRATION. PATIENT UNDERSTOOD AND AGREED. [email or web address]
[2022-07-08] VITALS: BP 98/67
[2022-07-08] MEDS: MORPHINE SULFATE 2 MG/ML SYR IVP PRN ×2 (00:20→09:20)
--- NOTE | 2022-07-08 00:32 | NUR ---
PATIENT HAD A LOW MAGNESIUM SINCE 0500 AND NO NOTIFICATION TO MD. NURSING ADVISED MD OF THE LAB AND AWAITING RESPONSE. [email or web address] Addendum: 07/08/22 at 0318 by Heather Slater LVN WRONG NOTATION....PATIENT VALUES WERE WITHIN NORMAL LIMITS. [email or web address]
--- NOTE | 2022-07-08 03:18 | NUR ---
PATIENT IN BED ASLEEP. NO NOTED S/S OF PAIN/DISCOMFORT. ALL NEEDS WERE MET. SIDE RAILS UP X 2 CALL LIGHT WITHIN REACH. [email or web address]
[2022-07-08 04:00] VITALS: BP 109/79
[2022-07-08] MEDS: BLOOD GLUCOSE MONITORING 1 DEV DEV FS SCH ×2 (06:43→11:30)
[2022-07-08 06:52] LABS: EOSINOPHILS # (AUTO) 0.2 K/uL (0-0.4); EOSINOPHILS % (AUTO) 3.5 % (0.0-4.0); HEMOGLOBIN 12.6 g/dL (12.0-16.0); LYMPHOCYTES # (AUTO) 1.5 K/uL (2.5-16.5); LYMPHOCYTES % (AUTO) 31.7 % (20.5-51.1); MEAN CORPUSCULAR HEMOGLOBIN 24 pg (27-31); MEAN CORPUSCULAR HGB CONC 32 g/dL (33-37); MEAN CORPUSCULAR VOLUME 75.2 fL (80-94); MONOCYTES # (AUTO) 0.5 K/uL (0.8-1.0); NEUTROPHILS # (AUTO) 2.5 K/uL (1.8-7.7); NEUTROPHILS % (AUTO) 52.8 % (42.2-75.2); PLATELET COUNT (AUTO) 174 K/uL (140-450); RED BLOOD CELL COUNT(AUTO) 5.32 MIL/uL (4.20-5.40); RED CELL DISTRIBUTION WIDTH 16.9 % (11.6-13.7); WHITE BLOOD COUNT (AUTO) 4.8 K/uL (4.8-10.8)
[2022-07-08 06:58] LABS: ALBUMIN 2.5 g/dL (3.4-5.0); ANION GAP 7.7 (8-16); CARBON DIOXIDE 34.8 mmol/L (21-32); CREATININE 1.6 mg/dL (0.6-1.3); MAGNESIUM 1.7 mg/dL (1.8-2.4); PHOSPHORUS 5.4 mg/dL (2.5-4.9); POTASSIUM 4.5 mmol/L (3.5-5.1); TOTAL BILIRUBIN 0.3 mg/dL (0.0-1.0)
--- NOTE | 2022-07-08 07:24 | NUR ---
ENDORSE PATIENT CARE TO CARA TREVINO FOR CONTINUITY OF CARE, PATIENT WAS STABLE AT CHANGE OF SHIFT. [email or web address] Addendum: 07/08/22 at 0724 by Heather Slater LVN ENDORSE PATIENT CARE TO ILIANA TREVINO FOR CONTINUITY OF CARE, PATIENT WAS STABLE AT CHANGE OF SHIFT. [email or web address]
[2022-07-08] MEDS ORDERED: NITROGLYCERIN 0.4 MG TAB SL PRN (07:25)
--- NOTE | 2022-07-08 07:25 | NUR ---
RECEIVED PATIENT FROM PM NURSE FOR CONTINUATION OF CARE. PATIENT SEEN ON BED AWAKE. PATIENT MONITORING AND CARE RESUMED.
[2022-07-08 08:00] VITALS: BP 133/82
[2022-07-08] MEDS: APIXABAN 2.5 MG TAB PO SCH (08:53)
[2022-07-08] MEDS: ASPIRIN 81 MG TAB.CHEW PO SCH (08:55)
[2022-07-08] MEDS: carvediloL 12.5 MG TAB PO SCH (08:56)
[2022-07-08] MEDS: oxyCODONE 5 MG TAB PO SCH (08:56)
[2022-07-08] MEDS: hydrALAZINE 10 MG TAB PO SCH ×2 (08:56→13:00)
[2022-07-08] MEDS ORDERED: BUMETANIDE 1 MG TAB PO SCH (09:00)
[2022-07-08] MEDS ORDERED: BUME1TAB92 PO (09:13)
[2022-07-08] MEDS ORDERED: MAG SULF 2000 MG/WATER PREMIX 50 ML IV SCH (09:30)
[2022-07-08 12:00] VITALS: BP 129/71
--- NOTE | 2022-07-08 12:30 | NUR ---
PATIENT SEEN BY MD. CLEARED FOR DISCHARGE. DISCHARGE DOCUMENTATION STARTED.
[2022-07-08 14:21] VITALS: BP 129/71
--- NOTE | 2022-07-08 15:20 | NUR ---
PATIENT DISCHARGED. BROUGHT OUT ON WHEELCHAIR, VITALS STABLE.
--- NOTE | 2022-07-12 13:34 | NUR ---
CALLED DR TEAGUE OFFICE LOCATED AT [address] [phone]. MULTIPLE TIME ON SEVERAL DIFFERENT OCCASIONS. AND I AM NOT ABLE TO REACH ANYONE THAT CAN BOOK A FOLLOW UP APPOINTMENT JUST THE ANSWERING MACHINE.
== END 2022-07-08 15:36 | disposition home or self-care (01) | DRG 190 ==
LOC: MED 20:43 → MTU 23:44
PROVIDERS: ADMIT Preventive Medicine Preventive Medicine/Occupational Environmental Medicine; ATTEND Preventive Medicine Preventive Medicine/Occupational Environmental Medicine
DX: I21.4 Non-ST elevation (NSTEMI) myocardial infarction (principal); N17.0 Acute kidney failure with tubular necrosis; I50.23 Acute on chronic systolic (congestive) heart failure; E44.0 Moderate protein-calorie malnutrition; E87.1 Hypo-osmolality and hyponatremia; E83.39 Other disorders of phosphorus metabolism; E11.22 Type 2 diabetes mellitus with diabetic chronic kidney disease; D64.9 Anemia, unspecified; E11.65 Type 2 diabetes mellitus with hyperglycemia; E78.5 Hyperlipidemia, unspecified; G89.4 Chronic pain syndrome; Z20.822 Contact with and (suspected) exposure to COVID-19; E83.42 Hypomagnesemia; I25.5 Ischemic cardiomyopathy; E88.09 Other disorders of plasma-protein metabolism, not elsewhere classified; I44.7 Left bundle-branch block, unspecified; J44.9 Chronic obstructive pulmonary disease, unspecified; I13.0 Hypertensive heart and chronic kidney disease with heart failure and stage 1 through stage 4 chronic kidney disease, or unspecified chronic kidney disease; N18.32 Chronic kidney disease, stage 3b; Z88.5 Allergy status to narcotic agent; Z88.8 Allergy status to other drugs, medicaments and biological substances; Z79.899 Other long term (current) drug therapy; Z83.3 Family history of diabetes mellitus; Z82.3 Family history of stroke; Z82.49 Family history of ischemic heart disease and other diseases of the circulatory system; Z68.41 Body mass index [BMI] 40.0-44.9, adult
CPT/HCPCS: 36415; 71045; 72050; 76770; 80048; 80053; 81001; 82948; 83735; 83880; 84100; 84484; 85025; 85651; 87081; 87086; 97116; 97163-GP; 97530; 99285; J1815; J2270; J2405; J3475; Q0092

== ENCOUNTER 2022-07-26 18:56 | Inpatient (IN) | payer MEDICAID ==
[~2022-07-26] VITALS: Ht 172.7 cm; Wt 119.3 kg
[~2022-07-26 18:56] MED LIST changes: -SPIR50TA PO
[2022-07-26 19:28] VITALS: BP 154/98
[2022-07-26] MEDS ORDERED: NITROGLYCERIN 0.4 MG TAB SL ONE (20:55)
[2022-07-26 21:28] LABS: BASOPHILS % (AUTO) 0.1 % (0.0-2.0); EOSINOPHILS # (AUTO) 0.2 K/uL (0-0.4); EOSINOPHILS % (AUTO) 3.1 % (0.0-4.0); HEMATOCRIT 39.1 % (36-48); HEMOGLOBIN 12.6 g/dL (12.0-16.0); LYMPHOCYTES # (AUTO) 1.6 K/uL (2.5-16.5); LYMPHOCYTES % (AUTO) 23.8 % (20.5-51.1); MEAN CORPUSCULAR HEMOGLOBIN 24 pg (27-31); MEAN CORPUSCULAR HGB CONC 32 g/dL (33-37); MEAN CORPUSCULAR VOLUME 75.1 fL (80-94); MONOCYTES # (AUTO) 0.3 K/uL (0.8-1.0); MONOCYTES % (AUTO) 4.3 % (1.7-9.3); NEUTROPHILS # (AUTO) 4.7 K/uL (1.8-7.7); NEUTROPHILS % (AUTO) 68.7 % (42.2-75.2); PLATELET COUNT (AUTO) 224 K/uL (140-450); RED CELL DISTRIBUTION WIDTH 17.3 % (11.6-13.7); WHITE BLOOD COUNT (AUTO) 6.9 K/uL (4.8-10.8)
--- NOTE | 2022-07-26 21:29 | NUR ---
PT TO BED 09 BY WC.
[2022-07-26 21:47] LABS: ALBUMIN 2.9 g/dL (3.4-5.0); ANION GAP 12.2 (8-16); CARBON DIOXIDE 29.8 mmol/L (21-32); CREATININE 1.4 mg/dL (0.6-1.3); TOTAL BILIRUBIN 0.4 mg/dL (0.0-1.0)
[2022-07-26] MEDS ORDERED: ASPIRIN 81 MG TAB.CHEW PO ONE ×2 (21:55→22:45)
[2022-07-26] MEDS ORDERED: MORPHINE SULFATE 4 MG/ML SYR IVP ONE (21:55)
[2022-07-26] MEDS ORDERED: carvediloL 6.25 MG TAB PO ONE (22:45)
--- NOTE | 2022-07-26 23:00 | NUR ---
Patient resting in bed, A/Ox4, chest rise and fall symmetrical, no s/s of distress, on monitor.
[2022-07-26] MEDS ORDERED: FUROSEMIDE 40 MG/4 ML VIAL IVP ONE (23:05)
[2022-07-26] MEDS ORDERED: ACETAMINOPHEN 325 MG TAB PO PRN (23:35)
[2022-07-26] MEDS ORDERED: ONDANSETRON 4 MG/2 ML VIAL IVP PRN (23:35)
[2022-07-26] MEDS ORDERED: HYDROcodone/APAP 5/325 MG 1 TAB TAB PO PRN ×2 (23:35)
--- NOTE | 2022-07-27 00:22 | NUR ---
COVID SWAB COLLECTED AND SENT TO LAB. PUREWIC PUT IN PLACE ON PT
--- NOTE | 2022-07-27 00:44 | NUR ---
Patient resting in bed, A/Ox4, chest rise and fall symmetrical, no c/o pain or s/s of distress, on monitor.
--- NOTE | 2022-07-27 02:04 | NUR ---
Patient resting in bed with eyes closed, A/Ox4, chest rise and fall symmetrical, no c/o pain or s/s of distress, on monitor.
--- NOTE | 2022-07-27 04:55 | NUR ---
Patient resting in bed with eyes closed, A/Ox4, chest rise and fall symmetrical, no c/o pain or s/s of distress, on monitor.
--- NOTE | 2022-07-27 06:15 | NUR ---
Patient resting in bed with eyes closed, A/Ox4, chest rise and fall symmetrical, no c/o pain or s/s of distress, on monitor.
--- NOTE | 2022-07-27 07:13 | NUR ---
Change of shift report given to AM shift nurses Dennise RN and Bev RN. AM shift nurses Dennise RN and Bev RN verbalized understanding of report, no further questions.
[2022-07-27 08:15] VITALS: BP 159/108
--- NOTE | 2022-07-27 08:34 | NUR ---
Patient will be admitted to care of MD FAYE. Admited to TELE. Will go to room 125-B. Belongings list completed. Report to SHARONDA TREVINO.
[2022-07-27] MEDS ORDERED: APIXABAN 2.5 MG TAB PO SCH (09:00)
[2022-07-27] MEDS ORDERED: lisinopriL 10 MG TAB PO SCH (09:00)
[2022-07-27] MEDS ORDERED: ASPIRIN 81 MG TAB.CHEW PO SCH (09:00)
[2022-07-27] MEDS ORDERED: FUROSEMIDE 40 MG/4 ML VIAL IVP SCH (09:00)
[2022-07-27] MEDS ORDERED: carvediloL 3.125 MG TAB PO SCH (09:00)
--- NOTE | 2022-07-27 09:00 | NUR ---
[facility]. STABLE, NO SIGNS OF DISTRESS. WILL CONTINUE WITH CARE.
[2022-07-27 12:00] VITALS: BP 147/86
[2022-07-27 14:47] LABS: CARBON DIOXIDE 31.7 mmol/L (21-32); CREATININE 1.6 mg/dL (0.6-1.3); POTASSIUM 3.7 mmol/L (3.5-5.1)
[2022-07-27 14:50] LABS: BASOPHILS # (AUTO) 0.1 K/uL (0.00-0.22); BASOPHILS % (AUTO) 1.1 % (0.0-2.0); EOSINOPHILS # (AUTO) 0.2 K/uL (0-0.4); EOSINOPHILS % (AUTO) 3.2 % (0.0-4.0); HEMATOCRIT 39.4 % (36-48); HEMOGLOBIN 12.5 g/dL (12.0-16.0); LYMPHOCYTES # (AUTO) 1.4 K/uL (2.5-16.5); LYMPHOCYTES % (AUTO) 26.4 % (20.5-51.1); MEAN CORPUSCULAR HEMOGLOBIN 24 pg (27-31); MEAN CORPUSCULAR HGB CONC 32 g/dL (33-37); MEAN CORPUSCULAR VOLUME 75.7 fL (80-94); MONOCYTES # (AUTO) 0.3 K/uL (0.8-1.0); MONOCYTES % (AUTO) 6.3 % (1.7-9.3); NEUTROPHILS # (AUTO) 3.4 K/uL (1.8-7.7); PLATELET COUNT (AUTO) 184 K/uL (140-450); RED CELL DISTRIBUTION WIDTH 17.9 % (11.6-13.7); WHITE BLOOD COUNT (AUTO) 5.4 K/uL (4.8-10.8)
[2022-07-27 14:53] VITALS: BP 147/86
--- NOTE | 2022-07-27 15:08 | NUR ---
CALLED DR TEAGUE OFFICE LOCATED AT [address] [facility] [place] [place] [phone]. SPOKE WITH NATHALIA WHO WAS ABLE TO SET UP FOLLOW UP APPOINTMENT FOR 08/04/2022 AT 1430. WENT TO BEDSIDE TO INFORM PATIENT AND GIVE APPOINTMENT SLIP.
[2022-07-27] MEDS ORDERED: INSULIN LISPRO SLIDING SCALE 100 UNITS/ML VIAL SUBQ PRN ×2 (15:50→16:15)
[2022-07-27] MEDS ORDERED: INSULIN LANTUS 100 UNITS/ML 10 ML VIAL SUBQ SCH ×2 (16:00→21:00)
[2022-07-27] MEDS ORDERED: DEXTROSE 50% 50 ML SYR IVP PRN (16:15)
[2022-07-27] MEDS ORDERED: BLOOD GLUCOSE MONITORING 1 DEV DEV FS SCH (16:30)
--- NOTE | 2022-07-27 16:50 | NUR ---
PT WAS PROVIDED LUNCH, DID NOT LIKE WHAT WAS GIVEN. PT REQUESTED GRILLED CHEESE. PT DID NOT LIKE GRILLED CHEESE AND CLAIMS SHE WILL NOT EAT IT. SAW PT AND GAVE DISCHARGE ORDER. CRITICAL LAB VALUE REPORTED BY LAB, BLOOD GLUCOSE 552. INFORMED MD. INSULIN ORDERED. PT REFUSED INSULIN AND STATES SHE JUST WANTS TO BE DISCHARGED HOME SO SHE CAN EAT. PT VITALS ALL STABLE, NO SIGNS OF DISTRESS/DISCOMFORT/PAIN. PROVIDED DISCHARGE INSTRUCTIONS TO PT. PT VERBALIZE UNDERSTANDING. DISCHARGE PAPERWORK SIGNED. IV REMOVED, ID BAND REMOVED. PT ESCORTED OUT OF HOSPITAL VIA WHEELCHAIR. PICKED UP BY DAUGHTER. PT STABLE UPON DISCHARGE, NO SIGNS OF DISTRESS. PT LEFT HOSPITAL AT 1645.
== END 2022-07-27 16:50 | disposition home or self-care (01) | DRG 194 ==
LOC: MED 18:56 → MMU 23:38
PROVIDERS: ADMIT Internal Medicine; ATTEND Internal Medicine
DX: I13.0 Hypertensive heart and chronic kidney disease with heart failure and stage 1 through stage 4 chronic kidney disease, or unspecified chronic kidney disease (principal); R65.11 Systemic inflammatory response syndrome (SIRS) of non-infectious origin with acute organ dysfunction; E11.00 Type 2 diabetes mellitus with hyperosmolarity without nonketotic hyperglycemic-hyperosmolar coma (NKHHC); E11.22 Type 2 diabetes mellitus with diabetic chronic kidney disease; E44.0 Moderate protein-calorie malnutrition; E11.40 Type 2 diabetes mellitus with diabetic neuropathy, unspecified; E87.1 Hypo-osmolality and hyponatremia; J44.9 Chronic obstructive pulmonary disease, unspecified; R07.89 Other chest pain; Z20.822 Contact with and (suspected) exposure to COVID-19; N18.30 Chronic kidney disease, stage 3 unspecified; G47.33 Obstructive sleep apnea (adult) (pediatric); Z88.8 Allergy status to other drugs, medicaments and biological substances; Z68.41 Body mass index [BMI] 40.0-44.9, adult; E11.65 Type 2 diabetes mellitus with hyperglycemia; I50.23 Acute on chronic systolic (congestive) heart failure
CPT/HCPCS: 36415; 71045; 80048; 80053; 83880; 84484; 85025; 96374; 96375; 99285; J1815; J1940; J2270

== ENCOUNTER 2022-08-08 21:13 | Emergency (ER) | payer MEDICAID ==
[~2022-08-08] VITALS: Ht 172.7 cm; Wt 119.3 kg
[2022-08-08 22:10] VITALS: BP 159/99
--- NOTE | 2022-08-08 22:20 | NUR ---
STAT EKG in triage.
--- NOTE | 2022-08-09 00:02 | NUR ---
PATIENT LEFT WITHOUT BEING SEEN BY DR. Yan. NO FURTHER CARE PROVIDED FOR PATIENT.
== END 2022-08-09 00:02 | disposition left against medical advice (07) ==
LOC: MED 21:13
DX: R06.02 Shortness of breath (principal); Z53.21 Procedure and treatment not carried out due to patient leaving prior to being seen by health care provider
CPT/HCPCS: 93005; 99281

== ENCOUNTER 2022-08-16 13:05 | Inpatient (IN) | payer MEDICAID ==
[~2022-08-16] VITALS: Ht 172.7 cm; Wt 121.6 kg
[2022-08-16 13:09] VITALS: BP 163/100
--- NOTE | 2022-08-16 13:29 | NUR ---
ERMD BEDSIDE ASSESSING PT
[2022-08-16] MEDS ORDERED: ALBUTEROL 0.083% 2.5 MG/3 ML NEBU INH ONE (13:30)
[2022-08-16] MEDS ORDERED: IPRATROPIUM 0.02% 0.5 MG/2.5 ML NEBU INH ONE (13:30)
[2022-08-16 14:01] LABS: BASOPHILS # (AUTO) 0.1 K/uL (0.00-0.22); BASOPHILS % (AUTO) 1.7 % (0.0-2.0); EOSINOPHILS # (AUTO) 0.1 K/uL (0-0.4); EOSINOPHILS % (AUTO) 1.4 % (0.0-4.0); HEMATOCRIT 38.3 % (36-48); HEMOGLOBIN 11.9 g/dL (12.0-16.0); LYMPHOCYTES # (AUTO) 1.4 K/uL (2.5-16.5); LYMPHOCYTES % (AUTO) 24.7 % (20.5-51.1); MEAN CORPUSCULAR HEMOGLOBIN 24 pg (27-31); MEAN CORPUSCULAR HGB CONC 31 g/dL (33-37); MONOCYTES # (AUTO) 0.4 K/uL (0.8-1.0); MONOCYTES % (AUTO) 6.9 % (1.7-9.3); NEUTROPHILS # (AUTO) 3.7 K/uL (1.8-7.7); NEUTROPHILS % (AUTO) 65.3 % (42.2-75.2); PLATELET COUNT (AUTO) 218 K/uL (140-450); RED BLOOD CELL COUNT(AUTO) 4.97 MIL/uL (4.20-5.40); RED CELL DISTRIBUTION WIDTH 19.1 % (11.6-13.7); WHITE BLOOD COUNT (AUTO) 5.7 K/uL (4.8-10.8)
[2022-08-16 14:16] LABS: ALBUMIN 2.8 g/dL (3.4-5.0); CARBON DIOXIDE 26.7 mmol/L (21-32); CREATININE 1.7 mg/dL (0.6-1.3); POTASSIUM 3.7 mmol/L (3.5-5.1); TOTAL BILIRUBIN 0.4 mg/dL (0.0-1.0)
[2022-08-16 14:19] LABS: LIPASE 69 U/L (73-393)
[2022-08-16] MEDS ORDERED: INSULIN REGULAR, HUMAN 100 UNIT/ML VIAL IVP ONE (14:25)
[2022-08-16] MEDS ORDERED: NACL 0.9% 500 ML IV ONE (14:25)
--- NOTE | 2022-08-16 14:59 | NUR ---
blood sugar 639, troponin elevated, made aware new order received ad carried out
[2022-08-16] MEDS ORDERED: oxyCODONE 10 MG TABER PO ONE (15:35)
--- NOTE | 2022-08-16 17:37 | NUR ---
DR KING NOTIFIED RE BLOOD DPVOK=[id number].NEW ORDERS RECEIVED
[2022-08-16] MEDS ORDERED: DEXTROSE 50% 50 ML SYR IVP PRN (17:40)
[2022-08-16] MEDS: INSULIN LISPRO SLIDING SCALE 100 UNITS/ML VIAL SUBQ PRN ×2 (17:47→20:35)
--- NOTE | 2022-08-16 19:25 | NUR ---
RECEIVED REPORT FROM DAY SHIFT NURSE FOR CONTINUITY OF CARE. PATIENT IS AWAKE ALERT ORIENTED IN NO ACUTE DISTRESS. NO COMPLAINTS OF PAIN AT THIS TIME. SAFETY MEASURES ARE IN PLACE. CALL LIGHT WITHIN REACH. NEEDS ATTENDED TO.
--- NOTE | 2022-08-16 19:27 | NUR ---
PT ARRIVED TO UNIT 6PM, PUT PT ON PUREWICK. NO SIGNS OF DISTRESS, NO REPORTS OF PAIN. MRSA SWAB DONE AND SENT TO LAB. ENDORSED TO NIGHTSHIFT NURSE FOR CONTINUITY OF CARE.
[2022-08-16 20:00] VITALS: BP 162/99
--- NOTE | 2022-08-16 20:20 | NUR ---
PATIENT COMPLAINED OF SEVER BACK PAIN, 01/03. NOTIFIED DR. KING, AWAITING FOR ORDERS.
[2022-08-16] MEDS: BLOOD GLUCOSE MONITORING 1 DEV DEV FS SCH (20:34)
--- NOTE | 2022-08-16 20:55 | NUR ---
RECEIVED A CALL FROM DR. KING WITH ORDERS NOTED , CARRIED OUT.
[2022-08-16] MEDS ORDERED: MORPHINE SULFATE 2 MG/ML SYR IVP PRN (21:15)
[2022-08-16] MEDS ORDERED: HYDROcodone/APAP 5/325 MG 1 TAB TAB PO PRN (21:20)
[2022-08-16] MEDS ORDERED: CLONIDINE HYDROCHLORIDE 0.1 MG TAB PO PRN (21:20)
[2022-08-16] MEDS ORDERED: LORazepam 2 MG/ML VIAL IVP PRN (22:00)
[2022-08-16] MEDS ORDERED: ONDANSETRON 4 MG/2 ML VIAL IVP PRN (22:00)
[2022-08-16] MEDS ORDERED: MORPHINE SULFATE 2 MG/ML SYR ONE (22:23)
[2022-08-16] MEDS: MORPHINE SULFATE 2 MG/ML SYR IVP PRN (22:59)
[2022-08-16] MEDS ORDERED: hydrALAZINE 10 MG TAB ONE (23:17)
[2022-08-16] MEDS ORDERED: lisinopriL 5 MG TAB ONE (23:18)
[2022-08-16] MEDS ORDERED: hydrALAZINE 10 MG TAB PO ONE (23:20)
[2022-08-16] MEDS: lisinopriL 5 MG TAB PO SCH (23:22)
[2022-08-17] VITALS: BP 166/120
[2022-08-17 04:00] VITALS: BP 137/103
[2022-08-17 05:24] LABS: APPEARANCE,URINE CLEAR (CLEAR); BILIRUBIN,URINE NEGATIVE (NEGATIVE); BLOOD, URINE 1+ (NEGATIVE); COLOR,URINE YELLOW (YELLOW); LEUKOCYTE ESTERASE ,URINE TRACE (NEGATIVE); NITRITE, URINE NEGATIVE (NEGATIVE); UGLUCOSE 3+ (NEGATIVE)
[2022-08-17] MEDS: MORPHINE SULFATE 2 MG/ML SYR IVP PRN ×3 (05:53→20:22)
[2022-08-17 06:19] LABS: RBC,URINE 0-5 /HPF (0-5)
[2022-08-17] MEDS: BLOOD GLUCOSE MONITORING 1 DEV DEV FS SCH ×4 (06:41→20:53)
[2022-08-17] MEDS: INSULIN LISPRO SLIDING SCALE 100 UNITS/ML VIAL SUBQ PRN ×4 (06:42→20:32)
[2022-08-17 07:05] LABS: BASOPHILS # (AUTO) 0.1 K/uL (0.00-0.22); BASOPHILS % (AUTO) 1.8 % (0.0-2.0); EOSINOPHILS # (AUTO) 0.1 K/uL (0-0.4); EOSINOPHILS % (AUTO) 1.6 % (0.0-4.0); HEMATOCRIT 36.4 % (36-48); HEMOGLOBIN 11.6 g/dL (12.0-16.0); LYMPHOCYTES # (AUTO) 1.9 K/uL (2.5-16.5); LYMPHOCYTES % (AUTO) 35.3 % (20.5-51.1); MEAN CORPUSCULAR HEMOGLOBIN 24 pg (27-31); MEAN CORPUSCULAR HGB CONC 32 g/dL (33-37); MEAN CORPUSCULAR VOLUME 75.7 fL (80-94); MONOCYTES # (AUTO) 0.4 K/uL (0.8-1.0); MONOCYTES % (AUTO) 7.8 % (1.7-9.3); NEUTROPHILS # (AUTO) 2.9 K/uL (1.8-7.7); NEUTROPHILS % (AUTO) 53.5 % (42.2-75.2); PLATELET COUNT (AUTO) 221 K/uL (140-450); RED BLOOD CELL COUNT(AUTO) 4.81 MIL/uL (4.20-5.40); RED CELL DISTRIBUTION WIDTH 19.3 % (11.6-13.7); WHITE BLOOD COUNT (AUTO) 5.4 K/uL (4.8-10.8)
[2022-08-17 07:06] LABS: ALBUMIN 2.7 g/dL (3.4-5.0); CARBON DIOXIDE 29.3 mmol/L (21-32); CREATININE 1.2 mg/dL (0.6-1.3); MAGNESIUM 1.5 mg/dL (1.8-2.4); PHOSPHORUS 4.9 mg/dL (2.5-4.9); POTASSIUM 3.3 mmol/L (3.5-5.1); TOTAL BILIRUBIN 0.4 mg/dL (0.0-1.0)
--- NOTE | 2022-08-17 07:25 | NUR ---
RECEIVED PT FROM SOCIAL SERVICE ASSISTANT NURSE FOR CONTINUITY OF CARE. PT IS AWAKE IN BED TALKING ON CELL PHONE. PT IS AOX4. RESPIRATIONS EVEN AND UNLABORED ON RA, NO DISTRESS NOTED. PUREWICK IN PLACE. IV ON L HAND SALINE LOCK. CALL LIGHT WITHIN REACH. ALL SAFETY PRECAUTIONS IN PLACE.
[2022-08-17 08:00] VITALS: BP 156/98
--- NOTE | 2022-08-17 08:00 | NUR ---
Patient's Plan of Care was discussed and reviewed with OPERATING COST CLERK: CHARLEE VILLAFANA
[2022-08-17] MEDS: APIXABAN 2.5 MG TAB PO SCH ×2 (08:38→20:22)
[2022-08-17] MEDS: ASPIRIN 81 MG TAB.CHEW PO SCH (08:39)
[2022-08-17] MEDS: carvediloL 12.5 MG TAB PO SCH ×2 (08:40→20:19)
[2022-08-17] MEDS: hydrALAZINE 10 MG TAB PO SCH ×3 (08:40→17:36)
[2022-08-17] MEDS: oxyCODONE 5 MG TAB PO SCH ×2 (08:41→20:53)
--- NOTE | 2022-08-17 08:44 | NUR ---
ADMINISTERED SCHEDULED MEDS, PT REFUSED MEDICATION OXYCODONE. PT STATES "I DONT FEEL LIKE TAKING IT NOW, I WILL PROBABLY TAKE IT THE NEXT TIME ITS DUE". PROVIDED PT TEACHING REGARDING RISKS/BENEFITS OF TAKING ALL MEDICATION PRESCRIBED. PT REFUSED AGAIN AND STATES "I'LL TAKE IT LATER".
--- NOTE | 2022-08-17 08:58 | NUR ---
PATIENT HAS BEEN SCREENED AND CATEGORIZED HIGH NUTRITION RISK. PATIENT WILL BE SEEN WITHIN 1-2 DAYS OF ADMISSION. FNS REFERRAL RECEIVED FOR UNCONTROLLED DIABETES ON 08/17/22. 08/16/22-08/18/[address] Addendum: 08/17/22 at [address] PATIENT HAS BEEN RE-SCREENED AND CATEGORIZED MODERATE NUTRITION RISK. PATIENT WILL BE SEEN WITHIN 3-5 DAYS OF ADMISSION. FNS REFERRAL DOSE NOT MEET HIGH RISK CRITERIA FOR HOSPITAL POLICY 08/17/22. 08/19/22-08/21/[address]
[2022-08-17] MEDS ORDERED: lisinopriL 5 MG TAB PO SCH (09:00)
[2022-08-17] MEDS ORDERED: BUMETANIDE 1 MG TAB PO SCH (09:00)
[2022-08-17] MEDS ORDERED: MAG SULF 2000 MG/WATER PREMIX 50 ML IV SCH (11:00)
[2022-08-17] MEDS ORDERED: POTASSIUM CHLORIDE 10 MEQ TABER PO SCH (11:02)
--- NOTE | 2022-08-17 12:30 | NUR ---
MAG MARTIN PLUMMER GIVEN BY BELINDA ELLISON.
[2022-08-17 16:00] VITALS: BP 140/87
[2022-08-17] MEDS: BUMETANIDE 1 MG TAB PO SCH (17:36)
--- NOTE | 2022-08-17 19:13 | NUR ---
ENDORSED PT TO OCCUPATIONAL THERAPY ASST NURSE FOR CONTINUITY OF CARE. PT IS STABLE.
--- NOTE | 2022-08-17 19:14 | NUR ---
RECEIVED PT FROM MORNING SHIFT NURSE. PT IS AOX4, BEDREST, ABLE TO VERBALIZE NEEDS ANDABLE TO FOLLOW COMMANDS. PT IS ON ROOM AIR AND ON CCHO DIET. PT HAS IV ON LEFT HAND GAUGE 20, SALINE LOCK. PT SKIN IS INTACT. PT DENIES PAIN AT THIS TIME. NO S/S OF RESPIRATORY DISTRESS NOTED. ALL SAFETY MEASURES IMPLEMENTED. BED IN LOW POSITION, BED WHEELS ON LOCK AND CALL LIGHT WITHIN REACH.
--- NOTE | 2022-08-17 20:22 | NUR ---
PT WAS GIVEN PRN PAIN MEDICATION DUE TO BACK PAIN WITH PAIN SCALE OF 8/10. ALL SAFETY MEASURES IMPLEMENTED. BED IN LOW POSITION, BED WHEELS ON LOCK AND CALL LIGHT WITHIN REACH.
--- NOTE | 2022-08-17 20:53 | NUR ---
SCHEDULED AND PRESCRIBED WAS GIVEN TO PT PER MD ORDER. PT REFUSED OXYCODONE AND WANTS MORPHINE INSTEAD. PT BLOOD GLUCOSE IS 228. 4 UNITS OF INSULIN HUMALOG WAS GIVEN TO PT. ALL SAFETY MEASURES IMPLEMENTED. BED IN LOW POSITION, BED WHEELS ON LOCK AND CALL LIGHT WITHIN REACH.
[2022-08-17] MEDS: lisinopriL 5 MG TAB PO SCH (20:57)
[2022-08-17] MEDS ORDERED: ATORVASTATIN 20 MG TAB PO SCH (21:00)
[2022-08-17] MEDS ORDERED: INSULIN LANTUS 100 UNITS/ML 10 ML VIAL SUBQ SCH (21:00)
--- NOTE | 2022-08-17 22:00 | NUR ---
PT WAS GIVEN ICE CHIPS. NO COMPLAIN OF PAIN. NO S/S OF RESPIRATORY DISTRESS. ALL SAFETY MEASURES IMPLEMENTED. BED IN LOW POSITION, BED WHEELS ON LOCK AND CALL LIGHT WITHIN REACH.
[2022-08-18] VITALS: BP 155/93
--- NOTE | 2022-08-18 | NUR ---
PT IS SLEEPING. CHEST RISE AND FALL SYMMETRICALLY NOTED. RESPIRATION IS EVEN AND UNLABORED. ALL SAFETY MEASURES IMPLEMENTED. BED IN LOW POSITION, BED WHEELS ON LOCK AND CALL LIGHT WITHIN REACH.
--- NOTE | 2022-08-18 02:00 | NUR ---
CHECKED THE PT, STILL SLEEPING. CHEST RISE AND FALL SYMMETRICALLY NOTED. RESPIRATION IS EVEN AND UNLABORED. ALL SAFETY MEASURES IMPLEMENTED. BED IN LOW POSITION, BED WHEELS ON LOCK AND CALL LIGHT WITHIN REACH.
[2022-08-18] MEDS: MORPHINE SULFATE 2 MG/ML SYR IVP PRN (05:33)
--- NOTE | 2022-08-18 05:33 | NUR ---
PRN PAIN MEDICATION WAS GIVEN TO PT DUE TO BACK PAIN WITH PAIN SCALE OF 8/10. ALL SAFETY MEASURES IMPLEMENTED. BED IN LOW POSITION, BED WHEELS ON LOCK AND CALL LIGHT WITHIN REACH.
[2022-08-18 06:33] LABS: ANION GAP 10.2 (8-16); CREATININE 1.3 mg/dL (0.6-1.3); POTASSIUM 4.2 mmol/L (3.5-5.1)
[2022-08-18] MEDS: BLOOD GLUCOSE MONITORING 1 DEV DEV FS SCH (06:40)
[2022-08-18] MEDS: INSULIN LISPRO SLIDING SCALE 100 UNITS/ML VIAL SUBQ PRN (06:40)
--- NOTE | 2022-08-18 06:40 | NUR ---
PT BLOOD GLUCOSE IS 153. HUMALOG INSULIN 2 UNITS WAS GIVEN TO PT.
[2022-08-18 06:55] LABS: BASOPHILS # (AUTO) 0.1 K/uL (0.00-0.22); BASOPHILS % (AUTO) 1.4 % (0.0-2.0); EOSINOPHILS # (AUTO) 0.2 K/uL (0-0.4); EOSINOPHILS % (AUTO) 3.2 % (0.0-4.0); HEMATOCRIT 38.1 % (36-48); HEMOGLOBIN 12.1 g/dL (12.0-16.0); LYMPHOCYTES # (AUTO) 1.4 K/uL (2.5-16.5); LYMPHOCYTES % (AUTO) 26.2 % (20.5-51.1); MEAN CORPUSCULAR HEMOGLOBIN 24 pg (27-31); MEAN CORPUSCULAR HGB CONC 32 g/dL (33-37); MEAN CORPUSCULAR VOLUME 76.5 fL (80-94); MONOCYTES # (AUTO) 0.4 K/uL (0.8-1.0); MONOCYTES % (AUTO) 7.1 % (1.7-9.3); NEUTROPHILS # (AUTO) 3.4 K/uL (1.8-7.7); NEUTROPHILS % (AUTO) 62.1 % (42.2-75.2); PLATELET COUNT (AUTO) 240 K/uL (140-450); RED BLOOD CELL COUNT(AUTO) 4.98 MIL/uL (4.20-5.40); WHITE BLOOD COUNT (AUTO) 5.5 K/uL (4.8-10.8)
--- NOTE | 2022-08-18 07:19 | NUR ---
PT IS STABLE. ENDORSED PT TO MORNING SHFT NURSE FOR CONTINUITY OF CARE.
--- NOTE | 2022-08-18 07:20 | NUR ---
RECEIVED PT FROM LUNCH TRUCK DRIVER NURSE FOR CONTINUITY OF CARE. PT IS SLEEPING, VISIBLE CHEST RISE/FALL. RESPIRATIONS EVEN AND UNLABORED ON RA. IV ON L HAND 20G, SL. CALL LIGHT WITHIN REACH, ALL SAFETY PRECAUTIONS IN PLACE.
[2022-08-18 08:00] VITALS: BP 150/97
--- NOTE | 2022-08-18 08:00 | NUR ---
Patient's Plan of Care was discussed and reviewed with STRAWBERRY GROWER: CHARLEE VILLAFANA
[2022-08-18] MEDS: hydrALAZINE 10 MG TAB PO SCH (08:53)
[2022-08-18] MEDS: ASPIRIN 81 MG TAB.CHEW PO SCH (08:54)
[2022-08-18] MEDS: BUMETANIDE 1 MG TAB PO SCH (08:54)
[2022-08-18] MEDS: carvediloL 12.5 MG TAB PO SCH (08:55)
[2022-08-18] MEDS: APIXABAN 2.5 MG TAB PO SCH (08:58)
[2022-08-18] MEDS: oxyCODONE 5 MG TAB PO SCH (08:59)
[2022-08-18] MEDS ORDERED: SPIRONOLACTONE 25 MG TAB PO SCH (09:00)
[2022-08-18] MEDS ORDERED: BUME1TAB92 PO (09:40)
[2022-08-18] MEDS ORDERED: SPIR25TA PO (09:40)
[2022-08-18 10:10] VITALS: BP 150/97
--- NOTE | 2022-08-18 10:42 | NUR ---
DISCUSSED DISCHARGE PACKET WITH PATIENT. REMOVED IV AND NAME BAND. ALL BELONGINGS GATHERED AND TAKEN BY PATIENT. PT WHEELED TO FRONT HOSPITAL LOBBY. PT IN STABLE CONDITION, DC TO HOME.
== END 2022-08-18 10:42 | disposition home or self-care (01) | DRG 194 ==
LOC: MED 13:05 → MTU 16:18
PROVIDERS: ADMIT Preventive Medicine Preventive Medicine/Occupational Environmental Medicine; ATTEND Preventive Medicine Preventive Medicine/Occupational Environmental Medicine
DX: I13.0 Hypertensive heart and chronic kidney disease with heart failure and stage 1 through stage 4 chronic kidney disease, or unspecified chronic kidney disease (principal); E44.0 Moderate protein-calorie malnutrition; E83.51 Hypocalcemia; E87.1 Hypo-osmolality and hyponatremia; J96.10 Chronic respiratory failure, unspecified whether with hypoxia or hypercapnia; E11.22 Type 2 diabetes mellitus with diabetic chronic kidney disease; I48.0 Paroxysmal atrial fibrillation; I50.23 Acute on chronic systolic (congestive) heart failure; E11.65 Type 2 diabetes mellitus with hyperglycemia; I25.10 Atherosclerotic heart disease of native coronary artery without angina pectoris; E88.09 Other disorders of plasma-protein metabolism, not elsewhere classified; Z20.822 Contact with and (suspected) exposure to COVID-19; E78.5 Hyperlipidemia, unspecified; G89.4 Chronic pain syndrome; J44.1 Chronic obstructive pulmonary disease with (acute) exacerbation; I25.5 Ischemic cardiomyopathy; I44.7 Left bundle-branch block, unspecified; N18.9 Chronic kidney disease, unspecified; Z79.01 Long term (current) use of anticoagulants; I25.2 Old myocardial infarction; Z79.899 Other long term (current) drug therapy; Z86.73 Personal history of transient ischemic attack (TIA), and cerebral infarction without residual deficits; Z99.81 Dependence on supplemental oxygen; Z88.8 Allergy status to other drugs, medicaments and biological substances; Z79.82 Long term (current) use of aspirin; Z68.41 Body mass index [BMI] 40.0-44.9, adult
CPT/HCPCS: 36415; 71045; 80048; 80053; 81001; 82948; 83690; 83735; 83880; 84100; 84484; 85025; 87081; 87086; 94640; 96374; 99285; J1815; J2270; J3475; J7613; J7644; Q0092

== ENCOUNTER 2022-09-02 23:09 | Inpatient (IN) | payer MEDICAID ==
[~2022-09-02] VITALS: Ht 172.7 cm; Wt 128.4 kg
[~2022-09-02 23:09] MED LIST changes: +SPIR25TA PO
[2022-09-02 23:24] VITALS: BP 167/110
--- NOTE | 2022-09-03 00:04 | NUR ---
Pt to bed 06
--- NOTE | 2022-09-03 00:04 | NUR ---
Patient resting in bed, A/Ox4, chest rise and fall symmetrical, no s/s of distress, on monitor.
[2022-09-03 00:19] LABS: HEMOGLOBIN 12.1 g/dL (12.0-16.0); MEAN CORPUSCULAR HEMOGLOBIN 25 pg (27-31); MEAN CORPUSCULAR HGB CONC 32 g/dL (33-37); MEAN CORPUSCULAR VOLUME 76.8 fL (80-94); PLATELET COUNT (AUTO) 203 K/uL (140-450); RED BLOOD CELL COUNT(AUTO) 4.94 MIL/uL (4.20-5.40); RED CELL DISTRIBUTION WIDTH 18.6 % (11.6-13.7); WHITE BLOOD COUNT (AUTO) 6.6 K/uL (4.8-10.8)
[2022-09-03 00:33] LABS: ALBUMIN 2.9 g/dL (3.4-5.0); ANION GAP 10.7 (8-16); CARBON DIOXIDE 30.7 mmol/L (21-32); CREATININE 1.6 mg/dL (0.6-1.3); POTASSIUM 4.4 mmol/L (3.5-5.1); TOTAL BILIRUBIN 0.2 mg/dL (0.0-1.0)
--- NOTE | 2022-09-03 00:41 | NUR ---
PT TO ED WITH C/O CHEST PAIN X3-4HR. PT STATES LEFT-SIDED CHEST PAIN RADIATING TO THORACIC BACK AND LEFT ARM. PT REPORTS SOB, NUMBNESS AND TINGLING OF BILATERAL ARM. PMHX CHF, COPD, HTN, AND RENAL DISORDER. DENIES N/V, ABDOMINAL PAIN, FEVER, OR CHILLS. PT ON 2L O2 AT HOME. PT IS AAOX4, NAD, VSS, BREATHING EVEN AND UNLABORED.
[2022-09-03] MEDS ORDERED: INSULIN REGULAR, HUMAN 100 UNIT/ML VIAL IVP ONE (00:50)
[2022-09-03] MEDS ORDERED: FUROSEMIDE 40 MG/4 ML VIAL IVP ONE (00:50)
[2022-09-03 01:22] LABS: BASOPHILS % (MANUAL) 2 % (0-2); EOSINOPHILS % (MANUAL) 4 % (0-4); LYMPHOCYTES % (MANUAL) 28 % (20-46); MONOCYTES % (MANUAL) 6 % (5-12)
--- NOTE | 2022-09-03 01:39 | NUR ---
PLACED PUREWICK ON PT.
[2022-09-03] MEDS ORDERED: ACETAMINOPHEN 325 MG TAB PO ONE (02:00)
[2022-09-03] MEDS ORDERED: MORPHINE SULFATE 4 MG/ML SYR IVP ONE ×2 (02:45→13:20)
--- NOTE | 2022-09-03 02:53 | NUR ---
740ML URINE OUTPUT. CLEAR YELLOW URINE NOTED.
--- NOTE | 2022-09-03 04:36 | NUR ---
CBG 268
--- NOTE | 2022-09-03 04:40 | NUR ---
BP 182/113, NOTIFIED DR. RUDD OF BP.
--- NOTE | 2022-09-03 05:12 | NUR ---
MED RECONCILIATION COMPLETED.
[2022-09-03] MEDS ORDERED: carvediloL 6.25 MG TAB PO ONE (05:35)
--- NOTE | 2022-09-03 06:25 | NUR ---
PT STATES PRESSURE DISCOMFORT ON BUTTOCK AREA. PROVIDED EXTRA BLANKET AND SLIGHTLY ELEVATED RIGHT SIDE OF BACK WITH SHEETS, PT STATES RELIEF.
[2022-09-03] MEDS ORDERED: ONDANSETRON 4 MG/2 ML VIAL IM/IVP PRN (06:50)
[2022-09-03] MEDS ORDERED: DOCUSATE SODIUM 100 MG GELCAP PO PRN (06:50)
[2022-09-03] MEDS ORDERED: ZOLPIDEM 5 MG TAB PO PRN (06:50)
[2022-09-03] MEDS ORDERED: POTASSIUM CHLORIDE 10 MEQ TABER PO PRN (06:50)
[2022-09-03] MEDS ORDERED: guaiFENesin DM 200/20 MG-10 ML 10 ML UDC PO PRN (06:50)
[2022-09-03] MEDS ORDERED: ACETAMINOPHEN 325 MG TAB PO PRN (06:50)
[2022-09-03] MEDS ORDERED: ALBUTEROL HFA MDI 90 MCG/ACTUATION 8 GM INH PRN (06:55)
[2022-09-03] MEDS ORDERED: DEXTROSE 50% 50 ML SYR IVP PRN (07:00)
--- NOTE | 2022-09-03 07:15 | NUR ---
PT REPORT GIVEN TO RAEJNDRA SHULTZ. ALL CARE ENDORSED, QUESTIONS AND CONCERNS ADDRESSED.
[2022-09-03 07:17] LABS: BASOPHILS # (AUTO) 0.1 K/uL (0.00-0.22); BASOPHILS % (AUTO) 1.5 % (0.0-2.0); EOSINOPHILS # (AUTO) 0.2 K/uL (0-0.4); HEMATOCRIT 37.5 % (36-48); HEMOGLOBIN 11.9 g/dL (12.0-16.0); LYMPHOCYTES # (AUTO) 1.9 K/uL (2.5-16.5); LYMPHOCYTES % (AUTO) 29.3 % (20.5-51.1); MEAN CORPUSCULAR HEMOGLOBIN 25 pg (27-31); MEAN CORPUSCULAR HGB CONC 32 g/dL (33-37); MEAN CORPUSCULAR VOLUME 77.1 fL (80-94); MONOCYTES # (AUTO) 0.5 K/uL (0.8-1.0); MONOCYTES % (AUTO) 7.3 % (1.7-9.3); NEUTROPHILS # (AUTO) 3.9 K/uL (1.8-7.7); NEUTROPHILS % (AUTO) 58.9 % (42.2-75.2); PLATELET COUNT (AUTO) 202 K/uL (140-450); RED BLOOD CELL COUNT(AUTO) 4.86 MIL/uL (4.20-5.40); RED CELL DISTRIBUTION WIDTH 18.4 % (11.6-13.7); WHITE BLOOD COUNT (AUTO) 6.6 K/uL (4.8-10.8)
--- NOTE | 2022-09-03 07:20 | NUR ---
Pt report received from BELINDA Escobar. Transfer of care to RESIDENTIAL LEASING AGENTVijaya Bone.
[2022-09-03 07:26] LABS: PROTHROMBIN TIME 10.4 secs (10.8-13.4)
[2022-09-03] MEDS: BLOOD GLUCOSE MONITORING 1 DEV DEV FS SCH ×4 (07:30→21:00)
[2022-09-03 07:43] LABS: ANION GAP 10.3 (8-16); CARBON DIOXIDE 30.2 mmol/L (21-32); CREATININE 1.5 mg/dL (0.6-1.3); MAGNESIUM 1.8 mg/dL (1.8-2.4); PHOSPHORUS 5.4 mg/dL (2.5-4.9); POTASSIUM 4.5 mmol/L (3.5-5.1); TOTAL BILIRUBIN 0.3 mg/dL (0.0-1.0)
--- NOTE | 2022-09-03 08:40 | NUR ---
Patient was offered breakfast tray. Patient only wanted a banana.
[2022-09-03] MEDS: PANTOPRAZOLE 40 MG TABEC PO SCH (09:00)
[2022-09-03] MEDS: APIXABAN 2.5 MG TAB PO SCH ×2 (09:50→22:20)
[2022-09-03] MEDS: SPIRONOLACTONE 25 MG TAB PO SCH (09:51)
[2022-09-03] MEDS: ASPIRIN 81 MG TAB.CHEW PO SCH (09:52)
[2022-09-03] MEDS: BUMETANIDE 1 MG TAB PO SCH ×3 (09:53→17:44)
[2022-09-03] MEDS: carvediloL 12.5 MG TAB PO SCH ×2 (09:55→22:16)
[2022-09-03] MEDS: INSULIN LISPRO SLIDING SCALE 100 UNITS/ML VIAL SUBQ PRN ×2 (09:59→12:40)
--- NOTE | 2022-09-03 10:29 | NUR ---
Urine sample obtained walked to lab.
[2022-09-03 10:39] LABS: APPEARANCE,URINE CLEAR (CLEAR); BILIRUBIN,URINE NEGATIVE (NEGATIVE); BLOOD, URINE 1+ (NEGATIVE); COLOR,URINE YELLOW (YELLOW); LEUKOCYTE ESTERASE ,URINE 1+ (NEGATIVE); NITRITE, URINE NEGATIVE (NEGATIVE); UGLUCOSE 2+ (NEGATIVE)
[2022-09-03 10:49] LABS: BARBITURATE, URINE NEGATIVE ng/ml (NEG <=200); BENZODIAZEPINE, URINE NEGATIVE ng/mL (NEG <=200); CANNABINOID, URINE NEGATIVE ng/mL (NEG <=50); COCAINE, URINE NEGATIVE ng/mL (NEG <=300); PHENCYCLIDINE SCREEN,URINE NEGATIVE ng/mL (NEG <=25)
[2022-09-03 10:50] LABS: OPIATE, URINE POSITIVE ng/mL (NEG <=2000)
[2022-09-03] MEDS ORDERED: ALBUTEROL 0.083% 2.5 MG/3 ML NEBU INH PRN (10:50)
[2022-09-03] MEDS: HYDROcodone/APAP 7.5/325 MG 1 TAB PO PRN (11:28)
--- NOTE | 2022-09-03 12:40 | NUR ---
Patient was given lunch tray. Patient is sitting up eating lunch.
--- NOTE | 2022-09-03 14:07 | NUR ---
Patient is resting on bed, respirations even and unlabored. No signs of distress noted.
--- NOTE | 2022-09-03 17:44 | NUR ---
Patient was offered dinner tray. Patient is sitting up on bed eating.
--- NOTE | 2022-09-03 19:15 | NUR ---
Report given to RAJENDRA Schneider for transfer of care.
--- NOTE | 2022-09-03 19:57 | NUR ---
PT WILL BE GOING TO BED ASSIG 104B. REPORT TO CALL SHORTLY TO TELE. PT AWARE OF TRANSFER TO FLOOR. 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 STATES HAVING PAIN IN BACK. DENIES CP OR SOB. RESP EVEN AND UNLABORED
--- NOTE | 2022-09-03 20:25 | NUR ---
HAND-OFF REPORT RECEIVED FROM ELTON TREVINO VIA PHONE. 57 YO FEMALE WITH C/C OF CHEST PAIN AND SOB. DX: NSTEMI, CHF EXACERATION PER SERVICES OF [facility]. ROOM 104B. LASIX IV, INSULIN 5 UNITS, MORPHINE AND BETA RISHABH REPORTED GIVEN IN ER. AWAITING ARRIVAL.
--- NOTE | 2022-09-03 20:25 | NUR ---
REPORT GIVEN TO NARGIS TREVINO
--- NOTE | 2022-09-03 20:30 | NUR ---
Patient will be admitted to care of DR GREENE. Admited to TELE. Will go to [id number]. Belongings list completed. Report to NARGIS TREVINO.
[2022-09-03] MEDS: INSULIN LANTUS 100 UNITS/ML 10 ML VIAL SUBQ SCH (21:00)
[2022-09-03] MEDS: ATORVASTATIN 20 MG TAB PO SCH (21:00)
--- NOTE | 2022-09-03 21:00 | NUR ---
RECEIVED PT AT [address] [employer] A/OX4. DENIES CHEST PAIN. 02 2L SAT 98%. 98.1-74-24-151/77. ORIENTED TO ROOM. L HAND 22 [address] SL. SKIN INTACT. PUREWICK TO CONT. WALL SUCTION. CLEAR STRAW COLORED URINE QS. NOTED ELEVATED TROP 467 TRENDING UP FROM 438.. SODIUM 135. CREATININE 1.6. CXR: CARDIOMEGALY WITH PULMONARY CONGESTION. PLAN: CARDIAC CONSULT, BREATHING RX STRICT I/O AND PT EDUCATION CONCERNING MED COMPLIANCE AT HOME. CONT TO MONITOR.
--- NOTE | 2022-09-04 | NUR ---
STATED BACK PAIN "SCIATICA" RADIATING TO RLE AND "KIDNEY-LIKE PAIN" REQUESTING MORPHINE IV. TEXT TO MD REQUESTING AND STANDING BY. IN THE MEAN TIME PT REFUSED NORCO ON PROFILE.
[2022-09-04] MEDS: INSULIN LISPRO SLIDING SCALE 100 UNITS/ML VIAL SUBQ PRN ×5 (01:03→21:21)
[2022-09-04 04:00] VITALS: BP 136/82
--- NOTE | 2022-09-04 04:00 | NUR ---
NORCO TAB FOR BACK PAIN 11/03. NO RESPONSE FROM MD CONCERNING MORPHINE. EXPLAINED TO PT USUALLY MORPHINE SET ASIDE FOR CHEST PAIN. STATED UNDERSTOOD.
[2022-09-04] MEDS: HYDROcodone/APAP 7.5/325 MG 1 TAB PO PRN ×2 (04:15→17:52)
--- NOTE | 2022-09-04 05:00 | NUR ---
NORCO EFFECTIVE FOR PAIN RELIEF. PT SLEEPING SOUNDLY. NO FURTHER C/O BACK PAIN
--- NOTE | 2022-09-04 05:32 | NUR ---
NOTED PT WAS WEARING NASAL CANULA LAST NIGHT AND WAS CHARTED SUCH. PT WAS SLEEPING SO i VISITED THIS MORNING. NC WAS ON PT BUT OXYGEN WAS NOT TURNED ON. PT O2 SATURATION WAS 100%, HR 74, AND RR 16. TOOK NC OFF PATIENT.
[2022-09-04 06:07] LABS: BASOPHILS # (AUTO) 0.1 K/uL (0.00-0.22); BASOPHILS % (AUTO) 1.6 % (0.0-2.0); EOSINOPHILS # (AUTO) 0.3 K/uL (0-0.4); EOSINOPHILS % (AUTO) 5.4 % (0.0-4.0); HEMOGLOBIN 11.7 g/dL (12.0-16.0); LYMPHOCYTES # (AUTO) 1.7 K/uL (2.5-16.5); LYMPHOCYTES % (AUTO) 28.6 % (20.5-51.1); MEAN CORPUSCULAR HEMOGLOBIN 25 pg (27-31); MEAN CORPUSCULAR HGB CONC 32 g/dL (33-37); MEAN CORPUSCULAR VOLUME 77.8 fL (80-94); MONOCYTES # (AUTO) 0.4 K/uL (0.8-1.0); MONOCYTES % (AUTO) 7.2 % (1.7-9.3); NEUTROPHILS # (AUTO) 3.4 K/uL (1.8-7.7); NEUTROPHILS % (AUTO) 57.2 % (42.2-75.2); PLATELET COUNT (AUTO) 194 K/uL (140-450); RED BLOOD CELL COUNT(AUTO) 4.75 MIL/uL (4.20-5.40); RED CELL DISTRIBUTION WIDTH 18.9 % (11.6-13.7); WHITE BLOOD COUNT (AUTO) 5.9 K/uL (4.8-10.8)
[2022-09-04 06:25] LABS: ALBUMIN 2.6 g/dL (3.4-5.0); ANION GAP 8.8 (8-16); CARBON DIOXIDE 32.9 mmol/L (21-32); CREATININE 1.6 mg/dL (0.6-1.3); POTASSIUM 4.7 mmol/L (3.5-5.1); TOTAL BILIRUBIN 0.2 mg/dL (0.0-1.0)
--- NOTE | 2022-09-04 06:30 | NUR ---
PT OFF O2 PER NC AND STATED FEELS LIKE SHE HAS TO MAKE MORE EFFORT TO BREATHE. REQUESTING REPLACE. GRANTED.
[2022-09-04] MEDS: BLOOD GLUCOSE MONITORING 1 DEV DEV FS SCH ×4 (06:33→21:22)
--- NOTE | 2022-09-04 07:30 | NUR ---
HAND-OFF REPORT TO ALIZA TREVINO. CONTINUES WITHOUT C/O OFFERED OF CHEST PAIN. REQUESTED FINAL CHECK OF O2 SAT. SATTING 92-95% RELINQUISHED CARE OF PT AT THIS TIME.
[2022-09-04 08:00] VITALS: BP 139/95
--- NOTE | 2022-09-04 09:00 | NUR ---
PATIENT HAS BEEN SCREENED AND CATEGORIZED MODERATE NUTRITION RISK. PATIENT WILL BE SEEN WITHIN 3-[address]. [address]
[2022-09-04] MEDS: ASPIRIN 81 MG TAB.CHEW PO SCH (09:10)
[2022-09-04] MEDS: carvediloL 12.5 MG TAB PO SCH ×2 (09:10→20:52)
[2022-09-04] MEDS: PANTOPRAZOLE 40 MG TABEC PO SCH (09:11)
[2022-09-04] MEDS: SPIRONOLACTONE 25 MG TAB PO SCH (09:11)
[2022-09-04] MEDS: lisinopriL 5 MG TAB PO SCH (09:11)
[2022-09-04] MEDS: BUMETANIDE 1 MG TAB PO SCH ×3 (09:12→17:15)
[2022-09-04] MEDS: APIXABAN 2.5 MG TAB PO SCH ×2 (09:14→21:09)
[2022-09-04 12:00] VITALS: BP 132/84
[2022-09-04 16:00] VITALS: BP 114/68
--- NOTE | 2022-09-04 19:32 | NUR ---
ENDORSE PATIENT IN STABLE CONDITION TO PM SHIFT NURSE AFTER CHANGED PATIENT'S PUREWICK AFTER SHE WET DUDLEY. PIV AT L. HAND SALINE LOCK.
--- NOTE | 2022-09-04 19:46 | NUR ---
HAND-OFF REPORT RECEIVED FROM DONNA TREVINO FOLLOWING BEDSIDE ROUND FOR CONTINUITY OF CARE. ENDORSED PURE WICK CHANGEDX2. LAST NOTED TROP 456. EXPLAINED TO PT NO IV PAIN MEDS APPROVED BUT CONTINUES TO INQUIRE FOR IV MEDS FOR PAIN. RECEIVED RESTING QUIETLY IN BED AT THIS TIME NO COMPLAINTS OF CHEST PAIN. ALL SAFETY MEASURES IN PLACE AND CALL LIGHT WITHIN REACH.
[2022-09-04 20:00] VITALS: BP 130/79
--- NOTE | 2022-09-04 20:00 | NUR ---
C/O CP 01/03 AFFECT CALM. SHOWING PICS OF GRANDCHILDREN AND SPEAKING OF GREAT POTATOES FOR DINNER. EXPLAINED TO PT 01/03 REP WORSE PAIN IN LIFE. STATE SHE UNDERSTOOD AND CONTINUES WITH CALM DEMEANOR OF SOMEONE NOT IN DISTRESS. CHARGE NURSE MADE AWARE. INFORMED PT THAT MD IS NOT ORDERING ANYTHING STRONGER THAN ORAL MEDS OF TYLENOL AND NORCO. STATED UNDERSTOOD ACCEPTED HS SNACK, ERIN-CARE AND NO GREAT DISAPPOINTMENT EXHIBITED. CONT TO MONITOR. OS SAT 100 ON 2L. REMOVED O2
[2022-09-04] MEDS: ATORVASTATIN 20 MG TAB PO SCH (20:51)
[2022-09-04] MEDS: INSULIN LANTUS 100 UNITS/ML 10 ML VIAL SUBQ SCH (21:19)
[2022-09-05] VITALS: BP 111/65
--- NOTE | 2022-09-05 00:30 | NUR ---
SLEEPING. NO FURTHER C/O OF CP. NO REQUEST FOR NEW LLANO NURSE HAS STANDING BY PER PT REQUEST.
[2022-09-05 04:00] VITALS: BP 128/72
--- NOTE | 2022-09-05 06:00 | NUR ---
PT ERIN-CARE GIVEN AND PURE WICK ADJUSTED. STILL NO REQUEST FOR PAIN PILL. NURSE DID NOT BRING UP THE SUBJECT OF PAIN TO PT. CONT TO ASSESS FOR NON-VERBAL CUES OF PAIN.
[2022-09-05 06:12] LABS: BASOPHILS # (AUTO) 0.1 K/uL (0.00-0.22); BASOPHILS % (AUTO) 1.9 % (0.0-2.0); EOSINOPHILS # (AUTO) 0.3 K/uL (0-0.4); EOSINOPHILS % (AUTO) 6.1 % (0.0-4.0); HEMATOCRIT 35.9 % (36-48); HEMOGLOBIN 11.4 g/dL (12.0-16.0); LYMPHOCYTES # (AUTO) 1.5 K/uL (2.5-16.5); LYMPHOCYTES % (AUTO) 29.6 % (20.5-51.1); MEAN CORPUSCULAR HEMOGLOBIN 24 pg (27-31); MEAN CORPUSCULAR HGB CONC 32 g/dL (33-37); MEAN CORPUSCULAR VOLUME 76.5 fL (80-94); MONOCYTES # (AUTO) 0.5 K/uL (0.8-1.0); NEUTROPHILS # (AUTO) 2.7 K/uL (1.8-7.7); NEUTROPHILS % (AUTO) 53.4 % (42.2-75.2); PLATELET COUNT (AUTO) 207 K/uL (140-450); RED BLOOD CELL COUNT(AUTO) 4.68 MIL/uL (4.20-5.40); RED CELL DISTRIBUTION WIDTH 18.7 % (11.6-13.7); WHITE BLOOD COUNT (AUTO) 5.1 K/uL (4.8-10.8)
[2022-09-05 06:35] LABS: ALBUMIN 2.6 g/dL (3.4-5.0); ANION GAP 8.3 (8-16); CARBON DIOXIDE 36.1 mmol/L (21-32); CREATININE 1.5 mg/dL (0.6-1.3); POTASSIUM 4.4 mmol/L (3.5-5.1); TOTAL BILIRUBIN 0.3 mg/dL (0.0-1.0)
[2022-09-05] MEDS: BLOOD GLUCOSE MONITORING 1 DEV DEV FS SCH ×2 (06:48→12:53)
[2022-09-05] MEDS: INSULIN LISPRO SLIDING SCALE 100 UNITS/ML VIAL SUBQ PRN ×2 (06:49→12:56)
--- NOTE | 2022-09-05 07:18 | NUR ---
RECEIVE THE PATIENT FROM THE COMMUNITY PLANNING TECHNICIAN RN IN RM 104b WITH ADMITTING DIAGNOSIS OF NSTEMI AOX4 NO SHORTNESS OF BREATH ,, NO COMPLAIN OF PAIN . WILL CONTINUE TO MONITOR
--- NOTE | 2022-09-05 07:30 | NUR ---
HAND-OFF REPORT TO IDALIA TREVINO. ENDORSED PURE WICK ADJUSTED FOR BEST SUCTION AND FREQUENT ERIN-CARE NEEDED FOR LEAKING. 800 ML URINE OUT/PT MAY HAVE COMMODE AT BEDSIDE IF AVAILABLE. ALSO ENDORSED CONT'D PT EDUCATION ON HOME MEDICATION COMPLIANCE. PT IN NO ACUTE DISTRESS. RELAXED AND TALKING ON PHONE WITH DIETARY ARRANGING BREAKFAST MENU. RELINQUISHED CARE OF PT AT THIS TIME.
[2022-09-05] MEDS: ASPIRIN 81 MG TAB.CHEW PO SCH (08:47)
[2022-09-05] MEDS: carvediloL 12.5 MG TAB PO SCH (08:47)
[2022-09-05] MEDS: BUMETANIDE 1 MG TAB PO SCH ×2 (08:47→13:01)
[2022-09-05] MEDS: APIXABAN 2.5 MG TAB PO SCH (08:48)
[2022-09-05] MEDS: PANTOPRAZOLE 40 MG TABEC PO SCH (08:48)
[2022-09-05] MEDS: lisinopriL 5 MG TAB PO SCH (08:49)
[2022-09-05] MEDS: INSULIN LANTUS 100 UNITS/ML 10 ML VIAL SUBQ SCH (08:53)
[2022-09-05] MEDS: SPIRONOLACTONE 25 MG TAB PO SCH (13:01)
--- NOTE | 2022-09-05 13:21 | NUR ---
made discharge teaching with patient . brought to the lobby thru a wheelchair to a waiting private car with her niece . no complain of pain . no sign and symptoms of respiratory distress .
== END 2022-09-05 13:52 | disposition home or self-care (01) | DRG 133 ==
LOC: MED 23:09 → MTU 09-03 06:54
PROVIDERS: ADMIT Student in an Organized Health Care Education/Training Program; ATTEND Student in an Organized Health Care Education/Training Program
DX: J96.00 Acute respiratory failure, unspecified whether with hypoxia or hypercapnia (principal); N17.0 Acute kidney failure with tubular necrosis; I21.A1 Myocardial infarction type 2; I50.23 Acute on chronic systolic (congestive) heart failure; I25.10 Atherosclerotic heart disease of native coronary artery without angina pectoris; Z20.822 Contact with and (suspected) exposure to COVID-19; E87.1 Hypo-osmolality and hyponatremia; Z88.1 Allergy status to other antibiotic agents; Z88.8 Allergy status to other drugs, medicaments and biological substances; Z79.899 Other long term (current) drug therapy; Z79.4 Long term (current) use of insulin; Z79.891 Long term (current) use of opiate analgesic; Z82.5 Family history of asthma and other chronic lower respiratory diseases; Z82.3 Family history of stroke; Z83.3 Family history of diabetes mellitus; I13.0 Hypertensive heart and chronic kidney disease with heart failure and stage 1 through stage 4 chronic kidney disease, or unspecified chronic kidney disease; N18.9 Chronic kidney disease, unspecified; E11.22 Type 2 diabetes mellitus with diabetic chronic kidney disease; E11.65 Type 2 diabetes mellitus with hyperglycemia
CPT/HCPCS: 36415; 71045; 80053; 80305; 81001; 82948; 83735; 83880; 84100; 84484; 85025; 85610; 85730; 87081; 87086; 93005; 96374; 96375; 99285; J1815; J1940; J2270; Q0092

== ENCOUNTER 2022-09-18 23:25 | Inpatient (IN) | payer MEDICAID ==
[~2022-09-18] VITALS: Ht 172.7 cm; Wt 117.9 kg
[2022-09-18 23:30] VITALS: PULSE 111; RESP 18; TEMP 97.8; O2SAT 97
--- NOTE | 2022-09-18 23:33 | NUR ---
TO LOBBY A/W BED VIA W/C
--- NOTE | 2022-09-18 23:56 | NUR ---
PT TAKEN TO RADIOLOGY
[2022-09-19] VITALS (9 sets, daily range): BP systolic 113–175; BP diastolic 80–112; PULSE 77–105; RESP 18–20; TEMP 97.7–98.1; O2SAT 94–99
[2022-09-19 00:03] LABS: BASOPHILS # (AUTO) 0.1 K/uL (0.00-0.22); BASOPHILS % (AUTO) 1.2 % (0.0-2.0); EOSINOPHILS # (AUTO) 0.2 K/uL (0-0.4); EOSINOPHILS % (AUTO) 3.5 % (0.0-4.0); HEMATOCRIT 37.7 % (36-48); HEMOGLOBIN 12.1 g/dL (12.0-16.0); LYMPHOCYTES # (AUTO) 1.4 K/uL (2.5-16.5); LYMPHOCYTES % (AUTO) 25.2 % (20.5-51.1); MEAN CORPUSCULAR HEMOGLOBIN 25 pg (27-31); MEAN CORPUSCULAR HGB CONC 32 g/dL (33-37); MEAN CORPUSCULAR VOLUME 77.3 fL (80-94); MONOCYTES # (AUTO) 0.3 K/uL (0.8-1.0); MONOCYTES % (AUTO) 5.1 % (1.7-9.3); NEUTROPHILS # (AUTO) 3.7 K/uL (1.8-7.7); PLATELET COUNT (AUTO) 210 K/uL (140-450); RED BLOOD CELL COUNT(AUTO) 4.88 MIL/uL (4.20-5.40); RED CELL DISTRIBUTION WIDTH 18.4 % (11.6-13.7); WHITE BLOOD COUNT (AUTO) 5.7 K/uL (4.8-10.8)
[2022-09-19 00:27] LABS: ALBUMIN 2.7 g/dL (3.4-5.0); ANION GAP 11.9 (8-16); CREATININE 1.5 mg/dL (0.6-1.3); POTASSIUM 3.9 mmol/L (3.5-5.1); TOTAL BILIRUBIN 0.3 mg/dL (0.0-1.0)
--- NOTE | 2022-09-19 00:51 | NUR ---
PT TAKEN TO BED 5
--- NOTE | 2022-09-19 01:05 | NUR ---
Pt from home with c/o Left sided CP x2-3 days which has progressiely worsened. Pain radiates to back. Denies N/V, SOB.
[2022-09-19] MEDS ORDERED: ASPIRIN 325 MG TAB PO ONE (02:10)
[2022-09-19] MEDS ORDERED: MORPHINE SULFATE 4 MG/ML SYR IVP ONE (02:35)
[2022-09-19] MEDS ORDERED: FUROSEMIDE 40 MG/4 ML VIAL IVP ONE (03:15)
--- NOTE | 2022-09-19 04:10 | NUR ---
Patient will be admitted to care of MD Earl. Admited to TELE. Will go to room 105B. Belongings list completed. Report given to BELINDA Murray.
--- NOTE | 2022-09-19 04:15 | NUR ---
ADMITTED PATIENT FROM ER VIA GURNEY WITH THE CC: CHEST PAIN DX: CHF EXACERBATION, NSTEMI, UNCONTROLLED DIABETES, HYPONATREMIA. AAOX4. NO SOB NOTED IN ROOM AIR. IV ACCESS TO RIGHT HAND SALINE LOCK. CALL LIGHT IN REACH. BED WHEELS LOCKED IN LOW POSITION. MRSA SCREENING DONE.
[2022-09-19] MEDS ORDERED: DEXTROSE 50% 50 ML SYR IVP PRN (06:35)
[2022-09-19] MEDS: BLOOD GLUCOSE MONITORING 1 DEV DEV FS SCH ×4 (06:47→20:56)
--- NOTE | 2022-09-19 06:47 | NUR ---
BLOOD SUGAR CHECKED WAS 330. HUMALOG INSULIN ADMINISTERED ORDERED PER SLIDING SCALE.
[2022-09-19] MEDS: INSULIN LISPRO SLIDING SCALE 100 UNITS/ML VIAL SUBQ PRN ×4 (06:48→21:03)
--- NOTE | 2022-09-19 07:10 | NUR ---
RECEIVED REPORT FROM DIVERSIFIED CROPS I FARMWORKER NURSE FOR CONTINUITY OF CARE. PT STABLE AT THIS TIME.
--- NOTE | 2022-09-19 07:14 | NUR ---
GAVE BEDSIDE REPORT TO AM NURSE FOR CONTINUITY OF CARE. PATIENT STABLE.
--- NOTE | 2022-09-19 08:53 | NUR ---
PATIENT HAS BEEN SCREENED AND CATEGORIZED HIGH NUTRITION RISK. PATIENT WILL BE SEEN WITHIN 1-2 DAYS OF ADMISSION. 09/20/22-09/21/22 FNS REFERRAL RECEIVED FOR UNCONTROLLED DIABETES ON 09/19/22. TRIP WALKER RD
[2022-09-19] MEDS ORDERED: NITROGLYCERIN 0.4 MG TAB SL PRN (08:55)
[2022-09-19] MEDS ORDERED: ONDANSETRON 4 MG/2 ML VIAL IVP PRN (08:55)
[2022-09-19] MEDS ORDERED: HYDROcodone/APAP 5/325 MG 1 TAB TAB PO PRN (08:55)
[2022-09-19] MEDS ORDERED: CLONIDINE HYDROCHLORIDE 0.1 MG TAB PO PRN (08:55)
[2022-09-19] MEDS ORDERED: ALBUTEROL 0.083% 2.5 MG/3 ML NEBU INH PRN (08:55)
[2022-09-19] MEDS ORDERED: oxyCODONE 5 MG TAB PO SCH (09:00)
[2022-09-19] MEDS: carvediloL 12.5 MG TAB PO SCH ×2 (09:38→21:07)
[2022-09-19] MEDS: ASPIRIN 81 MG TAB.CHEW PO SCH (09:38)
[2022-09-19] MEDS: SPIRONOLACTONE 25 MG TAB PO SCH (09:38)
[2022-09-19] MEDS: lisinopriL 5 MG TAB PO SCH (09:38)
[2022-09-19] MEDS: BUMETANIDE 1 MG TAB PO SCH ×3 (09:39→17:13)
[2022-09-19] MEDS: hydrALAZINE 10 MG TAB PO SCH ×3 (09:39→17:13)
[2022-09-19] MEDS: APIXABAN 2.5 MG TAB PO SCH ×2 (09:49→21:11)
[2022-09-19] MEDS ORDERED: MORPHINE SULFATE 2 MG/ML SYR IVP PRN ×2 (12:30)
[2022-09-19] MEDS: MORPHINE SULFATE 2 MG/ML SYR IVP PRN ×2 (12:53→21:17)
--- NOTE | 2022-09-19 15:05 | NUR ---
09/19/22 RD INITIAL ASSESSMENT COMPLETED PLEASE REFER TO NUTRITION ASSESSMENT UNDER CARE ACTIVITY FOR ESTIMATED NUTRITIONAL NEEDS. 1. CONTINUE CCHO 60GM AND CARDIAC DIET TOLERATED 2. RD ENCOURAGES PATIENT TO FOLLOW DIABETES EDUCATION HANDOUTS ONCE SHE LEAVES THE HOSPITAL. 3. RD TO FOLLOW-UP 3-5 DAYS, MODERATE RISK TRIP WALKER RD
--- NOTE | 2022-09-19 19:48 | NUR ---
ENDORSED PT TO BROADCAST PRODUCER NURSE FOR CONTINUITY OF CARE. PT STABLE AT THIS TIME.
[2022-09-19] MEDS ORDERED: ATORVASTATIN 20 MG TAB PO SCH (21:00)
[2022-09-19] MEDS ORDERED: INSULIN LANTUS 100 UNITS/ML 10 ML VIAL SUBQ SCH (21:00)
[2022-09-20] VITALS: BP 161/99; PULSE 83; PULSE 92; RESP 20; TEMP 97.1; O2SAT 99
[2022-09-20 04:00] VITALS: BP 141/93; PULSE 70; PULSE 80; RESP 18; TEMP 97.7; O2SAT 99
[2022-09-20] MEDS: BLOOD GLUCOSE MONITORING 1 DEV DEV FS SCH ×2 (06:30→11:43)
[2022-09-20 06:31] LABS: BASOPHILS # (AUTO) 0.1 K/uL (0.00-0.22); BASOPHILS % (AUTO) 1.9 % (0.0-2.0); EOSINOPHILS # (AUTO) 0.3 K/uL (0-0.4); EOSINOPHILS % (AUTO) 5.3 % (0.0-4.0); HEMATOCRIT 38.7 % (36-48); HEMOGLOBIN 12.4 g/dL (12.0-16.0); LYMPHOCYTES # (AUTO) 1.6 K/uL (2.5-16.5); LYMPHOCYTES % (AUTO) 26.9 % (20.5-51.1); MEAN CORPUSCULAR HEMOGLOBIN 25 pg (27-31); MEAN CORPUSCULAR HGB CONC 32 g/dL (33-37); MEAN CORPUSCULAR VOLUME 76.9 fL (80-94); MONOCYTES # (AUTO) 0.5 K/uL (0.8-1.0); MONOCYTES % (AUTO) 8.4 % (1.7-9.3); NEUTROPHILS # (AUTO) 3.4 K/uL (1.8-7.7); NEUTROPHILS % (AUTO) 57.5 % (42.2-75.2); PLATELET COUNT (AUTO) 210 K/uL (140-450); RED BLOOD CELL COUNT(AUTO) 5.03 MIL/uL (4.20-5.40)
[2022-09-20] MEDS: INSULIN LISPRO SLIDING SCALE 100 UNITS/ML VIAL SUBQ PRN ×2 (06:33→11:46)
[2022-09-20 06:40] LABS: ANION GAP 9.7 (8-16); CARBON DIOXIDE 35.2 mmol/L (21-32); CREATININE 1.4 mg/dL (0.6-1.3); POTASSIUM 3.9 mmol/L (3.5-5.1)
[2022-09-20] MEDS: MORPHINE SULFATE 2 MG/ML SYR IVP PRN (06:44)
--- NOTE | 2022-09-20 07:10 | NUR ---
RECEIVED REPORT FROM SERVICE STATION HELPER NURSE FOR CONTINUITY OF CARE. PT STABLE AT THIS TIME.
[2022-09-20 08:00] VITALS: BP 153/99; PULSE 75; PULSE 77; RESP 18; TEMP 97.3; O2SAT 100
[2022-09-20 08:04] VITALS: PULSE 75; RESP 18; O2SAT 100
[2022-09-20] MEDS: SPIRONOLACTONE 25 MG TAB PO SCH (09:22)
[2022-09-20] MEDS: lisinopriL 5 MG TAB PO SCH (09:22)
[2022-09-20] MEDS: hydrALAZINE 10 MG TAB PO SCH (09:22)
[2022-09-20] MEDS: ASPIRIN 81 MG TAB.CHEW PO SCH (09:22)
[2022-09-20] MEDS: carvediloL 12.5 MG TAB PO SCH (09:23)
[2022-09-20] MEDS: BUMETANIDE 1 MG TAB PO SCH (09:23)
[2022-09-20] MEDS: APIXABAN 2.5 MG TAB PO SCH (09:26)
--- NOTE | 2022-09-20 10:30 | NUR ---
CALLED DR KING'S OFFICE [facility] [place] [address] [address] SPOKE WITH DEVONTE WHO WAS ABLE TO HELP ME SCHEDULE A FOLLOW UP APPOINTMENT FOR 09/23/2022 AT 1400. WENT TO PATIENTS ROOM TO INFORM HER OF THE ABOVE INFORMATION AND APPOINTMENT SLIP. I ALSO EXPLAIN THAT SHE NEED TO CALL THE OFFICE TO CONFIRM THAT SHE IS GOING AND WE WENT OVER THE IMPORTANCE OF FOLLOWING UP WITH HER .
== END 2022-09-20 14:18 | disposition home or self-care (01) | DRG 190 ==
LOC: MED 23:25 → MTU 09-19 03:19
PROVIDERS: ADMIT Preventive Medicine Preventive Medicine/Occupational Environmental Medicine; ATTEND Preventive Medicine Preventive Medicine/Occupational Environmental Medicine
DX: I21.4 Non-ST elevation (NSTEMI) myocardial infarction (principal); I50.43 Acute on chronic combined systolic (congestive) and diastolic (congestive) heart failure; E43 Unspecified severe protein-calorie malnutrition; E11.22 Type 2 diabetes mellitus with diabetic chronic kidney disease; E87.1 Hypo-osmolality and hyponatremia; I48.0 Paroxysmal atrial fibrillation; J44.1 Chronic obstructive pulmonary disease with (acute) exacerbation; I13.0 Hypertensive heart and chronic kidney disease with heart failure and stage 1 through stage 4 chronic kidney disease, or unspecified chronic kidney disease; Z79.01 Long term (current) use of anticoagulants; E88.09 Other disorders of plasma-protein metabolism, not elsewhere classified; E11.65 Type 2 diabetes mellitus with hyperglycemia; I25.10 Atherosclerotic heart disease of native coronary artery without angina pectoris; N18.9 Chronic kidney disease, unspecified; G89.4 Chronic pain syndrome; E78.5 Hyperlipidemia, unspecified; M51.36 Other intervertebral disc degeneration, lumbar region; M50.30 Other cervical disc degeneration, unspecified cervical region; Z88.8 Allergy status to other drugs, medicaments and biological substances; Z79.899 Other long term (current) drug therapy
CPT/HCPCS: 36415; 71045; 72052; 72110; 80048; 80053; 82948; 83880; 84484; 85025; 87081; 93005; J1815; J1940; J2270

== ENCOUNTER 2022-09-26 20:37 | Emergency (ER) | payer MEDICAID ==
[~2022-09-26] VITALS: Ht 172.7 cm; Wt 117.9 kg
--- NOTE | 2022-09-26 20:39 | NUR ---
DILLON ALS TO BED #7
[2022-09-26 20:40] VITALS: BP 178/104; PULSE 101; RESP 17; TEMP 98.1; O2SAT 97
--- NOTE | 2022-09-26 21:21 | NUR ---
Urine collected and handed to Distribution Driver.
--- NOTE | 2022-09-26 21:25 | NUR ---
RAD at bedside for imaging.
--- NOTE | 2022-09-26 21:27 | NUR ---
X-Ray at bedside.
[2022-09-26 21:31] LABS: HEMATOCRIT 35.8 % (36-48); HEMOGLOBIN 11.7 g/dL (12.0-16.0); MEAN CORPUSCULAR HEMOGLOBIN 25 pg (27-31); MEAN CORPUSCULAR HGB CONC 33 g/dL (33-37); MEAN CORPUSCULAR VOLUME 76.2 fL (80-94); PLATELET COUNT (AUTO) 192 K/uL (140-450); WHITE BLOOD COUNT (AUTO) 5.7 K/uL (4.8-10.8)
[2022-09-26 21:44] LABS: APPEARANCE,URINE CLEAR (CLEAR); BILIRUBIN,URINE NEGATIVE (NEGATIVE); BLOOD, URINE 1+ (NEGATIVE); COLOR,URINE YELLOW (YELLOW); LEUKOCYTE ESTERASE ,URINE NEGATIVE (NEGATIVE); NITRITE, URINE NEGATIVE (NEGATIVE); UGLUCOSE 3+ (NEGATIVE)
[2022-09-26 21:48] LABS: LYMPHOCYTES % (MANUAL) 20 % (20-46); MONOCYTES % (MANUAL) 6 % (5-12)
[2022-09-26 21:49] LABS: ALBUMIN 2.7 g/dL (3.4-5.0); ANION GAP 12.6 (8-16); BASOPHILS % (MANUAL) 0 % (0-2); BLASTS, MANUAL % 1 % (0-0); CARBON DIOXIDE 29.4 mmol/L (21-32); CREATININE 1.5 mg/dL (0.6-1.3); EOSINOPHILS % (MANUAL) 9 % (0-4); METAMYELOCYTES % 1 % (0-0); MYELOCYTES % 1 % (0-0); TOTAL BILIRUBIN 0.2 mg/dL (0.0-1.0)
[2022-09-26 21:53] LABS: YEAST,URINE Few /HPF (None Seen)
[2022-09-26] MEDS ORDERED: MORPHINE SULFATE 4 MG/ML SYR IVP ONE (23:40)
[2022-09-26] MEDS ORDERED: ASPIRIN 325 MG TAB PO ONE (23:45)
[2022-09-27] MEDS ORDERED: INSULIN REGULAR, HUMAN 100 UNIT/ML VIAL IVP ONE (00:10)
--- NOTE | 2022-09-27 00:57 | NUR ---
CL value for Troponin level of 473 called in and reported to MD Tyler. to see pt.
--- NOTE | 2022-09-27 02:19 | NUR ---
Patient discharged with v/s stable. Written and verbal after care instructions given and explained. Patient verbalized understanding. All questions addressed prior to discharge. Advised to follow up with PMD or return to ED if symptoms worsen.
[2022-09-27 02:23] VITALS: BP 160/100; PULSE 100; RESP 18; TEMP 98.1; O2SAT 96
== END 2022-09-27 02:19 | disposition home or self-care (01) ==
LOC: MED 20:37
DX: T67.5XXA Heat exhaustion, unspecified, initial encounter (principal); I13.0 Hypertensive heart and chronic kidney disease with heart failure and stage 1 through stage 4 chronic kidney disease, or unspecified chronic kidney disease; I50.9 Heart failure, unspecified; E11.22 Type 2 diabetes mellitus with diabetic chronic kidney disease; N18.9 Chronic kidney disease, unspecified; I25.10 Atherosclerotic heart disease of native coronary artery without angina pectoris; R07.9 Chest pain, unspecified; G89.29 Other chronic pain; J44.9 Chronic obstructive pulmonary disease, unspecified; Z79.899 Other long term (current) drug therapy; Z79.82 Long term (current) use of aspirin; Z79.01 Long term (current) use of anticoagulants; Z79.4 Long term (current) use of insulin; Z88.8 Allergy status to other drugs, medicaments and biological substances; Z88.6 Allergy status to analgesic agent; Z88.5 Allergy status to narcotic agent; Z88.4 Allergy status to anesthetic agent; X30.XXXA Exposure to excessive natural heat, initial encounter; Y93.89 Activity, other specified; Y92.89 Other specified places as the place of occurrence of the external cause; Y99.8 Other external cause status
CPT/HCPCS: 36415; 71045; 80053; 81001; 83880; 84484; 85025; 87086; 93005; 96374; 96375; 99285; J1815; J2270; Q0092

== ENCOUNTER 2022-09-28 20:38 | Observation (INO) | payer MEDICAID ==
[~2022-09-28] VITALS: Ht 172.7 cm; Wt 117.9 kg
[2022-09-28 20:38] VITALS: BP 169/101; PULSE 112; RESP 20; TEMP 98.1; O2SAT 98
--- NOTE | 2022-09-28 20:38 | NUR ---
TO BED , BIBA , WITH C/O CHEST PAIN FROM HOME, ASA 324 MG , NITRO SPRAY WAS GIVEN ENROUTE
[2022-09-28 21:47] LABS: BASOPHILS # (AUTO) 0.1 K/uL (0.00-0.22); BASOPHILS % (AUTO) 1.4 % (0.0-2.0); EOSINOPHILS # (AUTO) 0.3 K/uL (0-0.4); EOSINOPHILS % (AUTO) 5.3 % (0.0-4.0); HEMATOCRIT 35.1 % (36-48); HEMOGLOBIN 11.2 g/dL (12.0-16.0); LYMPHOCYTES # (AUTO) 1.5 K/uL (2.5-16.5); LYMPHOCYTES % (AUTO) 28.3 % (20.5-51.1); MEAN CORPUSCULAR HEMOGLOBIN 25 pg (27-31); MEAN CORPUSCULAR HGB CONC 32 g/dL (33-37); MEAN CORPUSCULAR VOLUME 77.1 fL (80-94); MONOCYTES # (AUTO) 0.3 K/uL (0.8-1.0); MONOCYTES % (AUTO) 5.1 % (1.7-9.3); NEUTROPHILS # (AUTO) 3.3 K/uL (1.8-7.7); NEUTROPHILS % (AUTO) 59.9 % (42.2-75.2); PLATELET COUNT (AUTO) 206 K/uL (140-450); RED BLOOD CELL COUNT(AUTO) 4.55 MIL/uL (4.20-5.40); WHITE BLOOD COUNT (AUTO) 5.5 K/uL (4.8-10.8)
[2022-09-28 22:15] LABS: ALBUMIN 2.7 g/dL (3.4-5.0); ANION GAP 13.5 (8-16); CARBON DIOXIDE 28.5 mmol/L (21-32); CREATININE 1.4 mg/dL (0.6-1.3); TOTAL BILIRUBIN 0.2 mg/dL (0.0-1.0)
--- NOTE | 2022-09-28 22:30 | NUR ---
Pt c/o chest pain, ERMD was notified.
[2022-09-29] MEDS ORDERED: MORPHINE SULFATE 4 MG/ML SYR IVP ONE (00:10)
[2022-09-29] MEDS ORDERED: FUROSEMIDE 40 MG/4 ML VIAL IVP ONE (00:10)
[2022-09-29] MEDS ORDERED: ASPIRIN 325 MG TAB PO ONE (01:00)
[2022-09-29] MEDS ORDERED: amLODIPine 5 MG TAB PO ONE (01:00)
--- NOTE | 2022-09-29 01:40 | NUR ---
Tea montero in [facility] - 09/29/22 at 0409 by [email or web address] Report given to Fady TREVINO for transfer of care
[2022-09-29] MEDS ORDERED: INSULIN REGULAR, HUMAN 100 UNIT/ML VIAL IVP ONE (02:10)
--- NOTE | 2022-09-29 03:40 | NUR ---
Report given to Fady TREVINO for transfer of care
[2022-09-29 04:00] VITALS: BP 155/95; PULSE 103; PULSE 95; RESP 18; TEMP 96.7; O2SAT 94; O2SAT 98
--- NOTE | 2022-09-29 04:00 | NUR ---
Admitted from ER, with chief complaint of CHEST PAIN , 57 y/o ,Female, Cooperative,pt awake, alert and oriented 4. on room air, breathing even and unlabored.no s/sx of distress noted. poc discussed. mrsa swab done.all precautions in place. call light in reach. will continue to monitor. oriented to call light, bed, phone,television, bathroom, smoking policy, visiting hours, procedures, ID bracelet on. Belongings list checked.
--- NOTE | 2022-09-29 06:51 | NUR ---
PT IS STABLE. NO ACUTE EVENTS THROUGHOUT THE NIGHT. ALL NEEDS MET. NO S/SX OF DISTRESS AT THE MOMENT. ALL PRECAUTIONS IN PLACE. CALL LIGHT WITHIN REACH. WILL ENDORSE TO MORNING SHIFT NURSE.
--- NOTE | 2022-09-29 07:10 | NUR ---
RECEIVED REPORT FROM NIGHTSHIFT NURSE. PT IS ASLEEP IN BED, STABLE, WOKE TO NAME AND TOUCH. CALL LIGHT WITHIN REACH. NO FURTHER NEEDS ARE TO BE MET AT THIS TIME, WILL CONTINUE WITH PT CARE.
[2022-09-29 08:00] VITALS: BP 141/98; PULSE 89; PULSE 96; RESP 18; TEMP 97.4; O2SAT 100
--- NOTE | 2022-09-29 08:52 | NUR ---
PATIENT HAS BEEN SCREENED AND CATEGORIZED LOW NUTRITION RISK. PATIENT WILL BE SEEN WITHIN 7 DAYS OF ADMISSION. 10/06/22 REVIEWED BY [address]
--- NOTE | 2022-09-29 11:59 | NUR ---
DC [age]ANN[age] YRS OLD FEMALE PATIENT WAS ADMITTED FROM HOME WITH A DX OF CHEST PAIN. PATIENT FUENTES A HX OF CHF, CHRONIC PAIN DIABETES, DYSLIPIDEMIA, HTN, ASTHMA/COPD AND CKD. CXR SHOWED STABLE MODERATE CARDIOMEGALY AND MILD PULMONARY VASCULAR CONGESTION. TROPONIN 537, 547 ADMINISTERED IV LASIX AND CONTINUED HOME MEDS. CONSULTED WITH CARDIO. DC PLAN TO GO HOME WHEN STABLE. CM TO FOLLOW
[2022-09-29 12:00] VITALS: BP 145/97; PULSE 86; PULSE 92; RESP 18; TEMP 97.5; O2SAT 100
[2022-09-29] MEDS ORDERED: ONDANSETRON 4 MG/2 ML VIAL IVP PRN ×2 (13:05→20:35)
[2022-09-29 15:00] VITALS: O2SAT 98
[2022-09-29 16:00] VITALS: BP 152/94; PULSE 81; PULSE 93; RESP 18; TEMP 97.7; O2SAT 100
--- NOTE | 2022-09-29 19:05 | NUR ---
ENDORSED TO NIGHTSHIFT NURSE FOR CONTINUITY OF CARE. PT STABLE, RESTING IN BED, NO SIGNS OF DISTRESS, NO REPORTS OF PAIN/DISCOMFORT. CALL LIGHT PLACED WITHIN REACH.
[2022-09-29] MEDS ORDERED: DEXTROSE 50% 50 ML SYR IVP PRN ×2 (19:10→20:35)
[2022-09-29] MEDS ORDERED: INSULIN LISPRO SLIDING SCALE 100 UNITS/ML VIAL SUBQ PRN (19:10)
[2022-09-29] MEDS ORDERED: NITROGLYCERIN 0.4 MG TAB SL PRN (19:10)
[2022-09-29] MEDS ORDERED: CLONIDINE HYDROCHLORIDE 0.1 MG TAB PO PRN ×2 (19:10→20:35)
--- NOTE | 2022-09-29 19:30 | NUR ---
RECEIVED PT IN BED ASLEEP, EASILY AWAKEN BY VERBAL STIMULI. DENIES AT THIS TIME. NO ACUTE RESPIRATORY DISTRESS. SKIN WARM AND DRY TO TOUCH. SAFETY PRECAUTIONS IN PLACE, CALL LIGHT WITHIN REACH.
[2022-09-29 20:00] VITALS: BP 157/105; PULSE 89; PULSE 92; PULSE 98; RESP 18; TEMP 97.8; O2SAT 98
[2022-09-29] MEDS ORDERED: oxyCODONE 5 MG TAB PO PRN (20:20)
[2022-09-29] MEDS ORDERED: HYDROcodone/APAP 5/325 MG 1 TAB TAB PO PRN ×3 (20:20→20:35)
--- NOTE | 2022-09-29 20:27 | NUR ---
SCHEDULED MEDICATIONS GIVEN ORDERED. [id number] MG/DL, INSULIN GIVEN PER [employer] COVERAGE ORDERED. HS SNACKS PROVIDED. CALL LIGHT WITHIN REACH.
[2022-09-29] MEDS ORDERED: NITROGLYCERIN 0.4 MG TAB SL SCH (20:35)
[2022-09-29] MEDS ORDERED: LORazepam 2 MG/ML VIAL IVP PRN (20:35)
[2022-09-29] MEDS ORDERED: ACETAMINOPHEN 325 MG TAB PO PRN (20:35)
[2022-09-29] MEDS ORDERED: ALBUTEROL HFA MDI 90 MCG/ACTUATION 8 GM INH PRN (20:35)
--- NOTE | 2022-09-29 20:38 | NUR ---
DR. KING IS HERE, UPDATED ON PT'S CONDITION.
[2022-09-29] MEDS ORDERED: carvediloL 12.5 MG TAB PO SCH (21:00)
[2022-09-29] MEDS: BLOOD GLUCOSE MONITORING 1 DEV DEV FS SCH (21:00)
[2022-09-29] MEDS: APIXABAN 2.5 MG TAB PO SCH (21:00)
[2022-09-29] MEDS ORDERED: ATORVASTATIN 20 MG TAB PO SCH (21:00)
[2022-09-29] MEDS ORDERED: INSULIN LANTUS 100 UNITS/ML 10 ML VIAL SUBQ SCH (21:00)
[2022-09-29] MEDS ORDERED: hydrALAZINE 10 MG TAB PO SCH (21:00)
[2022-09-29] MEDS ORDERED: BLOOD GLUCOSE MONITORING 1 DEV DEV FS SCH (21:00)
[2022-09-29] MEDS: oxyCODONE 5 MG TAB PO SCH (21:00)
[2022-09-29] MEDS ORDERED: BUMETANIDE 1 MG TAB PO SCH (21:00)
[2022-09-29] MEDS ORDERED: APIXABAN 2.5 MG TAB PO SCH (21:00)
[2022-09-29] MEDS: carvediloL 12.5 MG TAB PO SCH (21:00)
[2022-09-29] MEDS: MORPHINE SULFATE 2 MG/ML SYR IVP PRN (21:07)
[2022-09-30] VITALS (12 sets, daily range): BP systolic 114–136; BP diastolic 68–80; PULSE 71–106; RESP 16–18; TEMP 97.2–98.4; O2SAT 94–100
--- NOTE | 2022-09-30 | NUR ---
VITAL SIGNS TAKEN AND DOCUMENTED, WITHIN NORMAL LIMITS. DENIES PAIN AT THIS TIME. CALL LIGHT WITHIN REACH.
[2022-09-30] MEDS: MORPHINE SULFATE 2 MG/ML SYR IVP PRN ×3 (05:23→19:53)
--- NOTE | 2022-09-30 06:23 | NUR ---
PATIENT IS AWAKE. DENIES PAIN AT THIS TIME. ALL NEEDS ATTENDED TO. SAFETY PRECAUTIONS MAINTAINED DURING THE SHIFT, CALL LIGHT REMAINS WITHIN REACH.
[2022-09-30] MEDS: BLOOD GLUCOSE MONITORING 1 DEV DEV FS SCH ×2 (06:33→12:21)
[2022-09-30] MEDS: INSULIN LISPRO SLIDING SCALE 100 UNITS/ML VIAL SUBQ PRN ×2 (06:33→12:25)
[2022-09-30 07:20] LABS: ALBUMIN 2.5 g/dL (3.4-5.0); CARBON DIOXIDE 31.5 mmol/L (21-32); CREATININE 1.3 mg/dL (0.6-1.3); MAGNESIUM 1.6 mg/dL (1.8-2.4); PHOSPHORUS 5.3 mg/dL (2.5-4.9); POTASSIUM 4.5 mmol/L (3.5-5.1); TOTAL BILIRUBIN 0.3 mg/dL (0.0-1.0)
[2022-09-30 07:46] LABS: BASOPHILS # (AUTO) 0.1 K/uL (0.00-0.22); BASOPHILS % (AUTO) 1.1 % (0.0-2.0); EOSINOPHILS # (AUTO) 0.2 K/uL (0-0.4); EOSINOPHILS % (AUTO) 4.8 % (0.0-4.0); HEMOGLOBIN 11.3 g/dL (12.0-16.0); LYMPHOCYTES # (AUTO) 1.2 K/uL (2.5-16.5); LYMPHOCYTES % (AUTO) 23.5 % (20.5-51.1); MEAN CORPUSCULAR HEMOGLOBIN 25 pg (27-31); MEAN CORPUSCULAR HGB CONC 31 g/dL (33-37); MONOCYTES # (AUTO) 0.4 K/uL (0.8-1.0); MONOCYTES % (AUTO) 7.5 % (1.7-9.3); NEUTROPHILS # (AUTO) 3.2 K/uL (1.8-7.7); NEUTROPHILS % (AUTO) 63.1 % (42.2-75.2); PLATELET COUNT (AUTO) 205 K/uL (140-450); RED BLOOD CELL COUNT(AUTO) 4.61 MIL/uL (4.20-5.40); RED CELL DISTRIBUTION WIDTH 17.5 % (11.6-13.7); WHITE BLOOD COUNT (AUTO) 5.1 K/uL (4.8-10.8)
--- NOTE | 2022-09-30 08:10 | NUR ---
FOUND PT ON 2L THIS AM. PT STATED THAT SHE WEARS 2L AT HOME WHILE SLEEPING AND SOMETIMES IN THE AM. SHE WANTED TO REMOVE O2. TRIALED PT OFF OUT AND MONITORED FOR 10 MINS. PT SATURATIONS STAYED IN NORMAL RANGE. PT EXHIBITED NO RESPIRATORY DISTRESS. PT WAS AWARE OF CALL LIGHT AND HAD READILY AT BEDSIDE. WILL CONTINUE TO MONITOR PATIENT.
[2022-09-30] MEDS ORDERED: ALBUTEROL 0.083% 2.5 MG/3 ML NEBU INH PRN (08:45)
[2022-09-30] MEDS ORDERED: lisinopriL 5 MG TAB PO SCH (09:00)
[2022-09-30] MEDS: oxyCODONE 5 MG TAB PO SCH (09:00)
[2022-09-30] MEDS ORDERED: ATORVASTATIN 20 MG TAB PO SCH (09:00)
[2022-09-30] MEDS ORDERED: SPIRONOLACTONE 25 MG TAB PO SCH (09:00)
[2022-09-30] MEDS ORDERED: ASPIRIN 81 MG TAB.CHEW PO SCH (09:00)
[2022-09-30] MEDS: carvediloL 12.5 MG TAB PO SCH (11:20)
[2022-09-30] MEDS: APIXABAN 2.5 MG TAB PO SCH (11:24)
[2022-09-30] MEDS: hydrALAZINE 10 MG TAB PO SCH ×2 (11:33→13:00)
[2022-09-30] MEDS: BUMETANIDE 1 MG TAB PO SCH ×2 (11:33→13:00)
--- NOTE | 2022-09-30 14:05 | NUR ---
FOUND PT SLEEPING AND ON 2L NC. O2 SATURATION WAS 92%. NO RESPIRATORY DISTRESS NOTED. WILL CONTINUE TO MONITOR PATIENT. CALL LIGHT ON BED WITHIN REACH.
--- NOTE | 2022-09-30 19:44 | NUR ---
in pain , per cindy nurse - give prn morphine tiv .
--- NOTE | 2022-09-30 19:50 | NUR ---
PT C/O BACK PAIN NON RADIATING , BP 128 / 80 , RR 18 , O2 SAT 100 % , HR 80 , SHE RATES THE PAIN 8/10 - PER CHARGE NURSE GIVE MORPHINE TIV .FOR PAIN .
--- NOTE | 2022-09-30 21:35 | NUR ---
V FIB , PT IS STANDING AT THIS TIME , MOVING AROUND FIXING HER BELONGINGS TO HER BAG , DRESSING UP BY HERSELF , DENIES PAIN AT THIS TIME , BP 120/ 82 , RR 20 , FL 92 , 100 % , NO COMPLAIN MADE AT THIS TIME . WILL CONT. TO MONITOR , CALL LIGHT WITHIN REACH
--- NOTE | 2022-09-30 22:11 | NUR ---
WAITING HER GRAND DAUGHTER , REQUESTED REMOVED IV NEEDLE , DENIES PAIN Addendum: 10/01/22 at 0048 by Lizeth Barnhart RN AT 2220 IV NEEDLE REMOVED , MIN. BLEEDING , PROCEDURE TOLERATED BY PT , WILL CONT. TO MONITOR
--- NOTE | 2022-09-30 22:30 | NUR ---
RE VISIT THE PT BP 122/78 , OH 84 , RR 18 , O2 SAT 100 % ON RA , DENIES ANY PAIN AT THIS TIME , NO COMPLAIN MADE . WILL CONT. TO MONITOR
--- NOTE | 2022-09-30 22:35 | NUR ---
DISCHARGE PACKET GIVEN TO PT . HOME MEDS / INSTRUCTIONS INSTRUCTED TO PT . PT VERBALIZES UNDERSTANDING , ALL QUESTIONS AND CONCERN ANSWERED . NOT IN DISTRESS , O2 SAT 100 % ON RA , DENIES ANY PAIN , IV SITE MIN. 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 DISCHARGED .
== END 2022-09-30 22:35 | disposition home or self-care (01) ==
LOC: MED 20:38 → MTU 09-29 03:14
PROVIDERS: ADMIT Preventive Medicine Preventive Medicine/Occupational Environmental Medicine; ATTEND Preventive Medicine Preventive Medicine/Occupational Environmental Medicine
DX: R07.89 Other chest pain (principal); I13.0 Hypertensive heart and chronic kidney disease with heart failure and stage 1 through stage 4 chronic kidney disease, or unspecified chronic kidney disease; E11.22 Type 2 diabetes mellitus with diabetic chronic kidney disease; I50.9 Heart failure, unspecified; N18.9 Chronic kidney disease, unspecified; D63.1 Anemia in chronic kidney disease; J44.9 Chronic obstructive pulmonary disease, unspecified; I25.10 Atherosclerotic heart disease of native coronary artery without angina pectoris; E11.21 Type 2 diabetes mellitus with diabetic nephropathy; E11.65 Type 2 diabetes mellitus with hyperglycemia; E88.09 Other disorders of plasma-protein metabolism, not elsewhere classified; E78.5 Hyperlipidemia, unspecified; I25.5 Ischemic cardiomyopathy; I44.7 Left bundle-branch block, unspecified; I48.0 Paroxysmal atrial fibrillation; Z87.891 Personal history of nicotine dependence; Z79.899 Other long term (current) drug therapy
CPT/HCPCS: 36415; 71045; 80053; 83735; 83880; 84100; 84484; 85025; 87081; 94760; 96372; 96374; 96375; 96376; 99284; G0378; J1815; J1940; J2270; J2405; 82948

== ENCOUNTER 2022-10-24 21:13 | Inpatient (IN) | payer MEDICAID ==
[~2022-10-24] VITALS: Ht 172.7 cm; Wt 121.6 kg
[2022-10-24 21:18] VITALS: BP 178/113; PULSE 126; RESP 25; TEMP 98.8; O2SAT 98
[2022-10-24 21:35] LABS: BASOPHILS # (AUTO) 0.1 K/uL (0.00-0.22); BASOPHILS % (AUTO) 1.3 % (0.0-2.0); EOSINOPHILS # (AUTO) 0.2 K/uL (0-0.4); EOSINOPHILS % (AUTO) 3.3 % (0.0-4.0); HEMATOCRIT 36.8 % (36-48); HEMOGLOBIN 11.8 g/dL (12.0-16.0); LYMPHOCYTES # (AUTO) 1.4 K/uL (2.5-16.5); LYMPHOCYTES % (AUTO) 24.3 % (20.5-51.1); MEAN CORPUSCULAR HEMOGLOBIN 25 pg (27-31); MEAN CORPUSCULAR HGB CONC 32 g/dL (33-37); MEAN CORPUSCULAR VOLUME 78.4 fL (80-94); MONOCYTES # (AUTO) 0.3 K/uL (0.8-1.0); MONOCYTES % (AUTO) 5.7 % (1.7-9.3); NEUTROPHILS # (AUTO) 3.8 K/uL (1.8-7.7); NEUTROPHILS % (AUTO) 65.4 % (42.2-75.2); PLATELET COUNT (AUTO) 216 K/uL (140-450); RED CELL DISTRIBUTION WIDTH 16.7 % (11.6-13.7); WHITE BLOOD COUNT (AUTO) 5.8 K/uL (4.8-10.8)
[2022-10-24 21:50] LABS: ALANINE AMINOTRANSFERASE 12 U/L (12-78); ALBUMIN 2.7 g/dL (3.4-5.0); ALKALINE PHOSPHATASE 154 U/L (50-136); ANION GAP 13.6 (8-16); ASPARTATE AMINOTRANSFERASE 15 U/L (15-37); CALCIUM 7.9 mg/dL (8.5-10.1); CARBON DIOXIDE 26.1 mmol/L (21-32); CHLORIDE 95 mmol/L (98-107); CREATININE 1.5 mg/dL (0.6-1.3); GFR ARICAN-AMERICAN 46 mL/min (>90); GFR NON ARICAN-AMERICAN 38 mL/min (>90); POTASSIUM 3.7 mmol/L (3.5-5.1); SODIUM SERUM 131 mmol/L (136-145); TOTAL BILIRUBIN 0.2 mg/dL (0.0-1.0); TOTAL PROTEIN, SERUM 7.4 g/dL (6.4-8.2); UREA NITROGEN, BLOOD 15 mg/dL (7-18)
[2022-10-24 21:51] LABS: GLUCOSE 626 mg/dL (74-106)
[2022-10-24] MEDS ORDERED: MORPHINE SULFATE 4 MG/ML SYR IVP ONE (22:05)
[2022-10-24] MEDS ORDERED: ASPIRIN 325 MG TAB PO ONE (22:05)
[2022-10-24] MEDS ORDERED: INSULIN REGULAR, HUMAN 100 UNIT/ML VIAL SUBQ ONE (22:15)
[2022-10-25] VITALS (8 sets, daily range): BP systolic 119–158; BP diastolic 72–117; PULSE 73–111; RESP 18–22; TEMP 96.4–98; O2SAT 90–98
[2022-10-25] MEDS ORDERED: POTASSIUM CHLORIDE 10 MEQ TABER PO PRN (00:20)
[2022-10-25] MEDS ORDERED: HYDROcodone/APAP 7.5/325 MG 1 TAB PO PRN (00:20)
[2022-10-25] MEDS ORDERED: ZOLPIDEM 5 MG TAB PO PRN (00:20)
[2022-10-25] MEDS ORDERED: ACETAMINOPHEN 325 MG TAB PO PRN (00:20)
[2022-10-25] MEDS ORDERED: guaiFENesin DM 200/20 MG-10 ML 10 ML UDC PO PRN (00:20)
[2022-10-25] MEDS ORDERED: DOCUSATE SODIUM 100 MG GELCAP PO PRN (00:20)
[2022-10-25] MEDS ORDERED: ONDANSETRON 4 MG/2 ML VIAL IM/IVP PRN (00:20)
[2022-10-25] MEDS ORDERED: CLONIDINE HYDROCHLORIDE 0.1 MG TAB PO PRN (00:25)
[2022-10-25] MEDS ORDERED: ALBUTEROL HFA MDI 90 MCG/ACTUATION 8 GM INH PRN (00:25)
[2022-10-25] MEDS ORDERED: DEXTROSE 50% 50 ML SYR IVP PRN (00:30)
[2022-10-25] MEDS ORDERED: MORPHINE SULFATE 4 MG/ML SYR IVP ONE (02:40)
[2022-10-25 06:34] LABS: BASOPHILS # (AUTO) 0.1 K/uL (0.00-0.22); BASOPHILS % (AUTO) 1.6 % (0.0-2.0); EOSINOPHILS # (AUTO) 0.3 K/uL (0-0.4); EOSINOPHILS % (AUTO) 4.7 % (0.0-4.0); HEMATOCRIT 37.2 % (36-48); HEMOGLOBIN 11.9 g/dL (12.0-16.0); LYMPHOCYTES % (AUTO) 33.1 % (20.5-51.1); MEAN CORPUSCULAR HEMOGLOBIN 25 pg (27-31); MEAN CORPUSCULAR HGB CONC 32 g/dL (33-37); MEAN CORPUSCULAR VOLUME 78.4 fL (80-94); MONOCYTES # (AUTO) 0.4 K/uL (0.8-1.0); MONOCYTES % (AUTO) 6.2 % (1.7-9.3); NEUTROPHILS # (AUTO) 3.2 K/uL (1.8-7.7); NEUTROPHILS % (AUTO) 54.4 % (42.2-75.2); PLATELET COUNT (AUTO) 222 K/uL (140-450); RED BLOOD CELL COUNT(AUTO) 4.74 MIL/uL (4.20-5.40); RED CELL DISTRIBUTION WIDTH 16.4 % (11.6-13.7); WHITE BLOOD COUNT (AUTO) 5.9 K/uL (4.8-10.8)
[2022-10-25] MEDS: BLOOD GLUCOSE MONITORING 1 DEV DEV FS SCH ×4 (06:34→20:54)
[2022-10-25] MEDS: INSULIN LISPRO SLIDING SCALE 100 UNITS/ML VIAL SUBQ PRN ×5 (06:38→20:59)
[2022-10-25 06:56] LABS: ALBUMIN 2.7 g/dL (3.4-5.0); ANION GAP 9.8 (8-16); CALCIUM 8.1 mg/dL (8.5-10.1); CARBON DIOXIDE 30.6 mmol/L (21-32); CREATININE 1.2 mg/dL (0.6-1.3); MAGNESIUM 1.8 mg/dL (1.8-2.4); PHOSPHORUS 4.1 mg/dL (2.5-4.9); POTASSIUM 3.4 mmol/L (3.5-5.1); TOTAL BILIRUBIN 0.3 mg/dL (0.0-1.0); TOTAL PROTEIN, SERUM 7.5 g/dL (6.4-8.2)
[2022-10-25] MEDS ORDERED: ALBUTEROL 0.083% 2.5 MG/3 ML NEBU INH PRN (07:25)
[2022-10-25] MEDS: ASPIRIN 81 MG TAB.CHEW PO SCH (08:14)
[2022-10-25] MEDS: APIXABAN 2.5 MG TAB PO SCH ×2 (08:15→21:00)
[2022-10-25] MEDS: BUMETANIDE 1 MG TAB PO SCH ×3 (08:16→17:44)
[2022-10-25] MEDS: SPIRONOLACTONE 25 MG TAB PO SCH (08:16)
[2022-10-25] MEDS: PANTOPRAZOLE 40 MG TABEC PO SCH (08:17)
[2022-10-25] MEDS: lisinopriL 5 MG TAB PO SCH (08:17)
[2022-10-25] MEDS: carvediloL 12.5 MG TAB PO SCH ×2 (08:17→20:45)
[2022-10-25] MEDS ORDERED: PROCHLORPERAZINE 5 MG TAB PO PRN (09:05)
[2022-10-25 13:09] LABS: AMPHETAMINE, URINE NEGATIVE ng/ml (NEG <=1000); BARBITURATE, URINE NEGATIVE ng/ml (NEG <=200); BENZODIAZEPINE, URINE NEGATIVE ng/mL (NEG <=200); CANNABINOID, URINE NEGATIVE ng/mL (NEG <=50); COCAINE, URINE NEGATIVE ng/mL (NEG <=300); OPIATE, URINE POSITIVE ng/mL (NEG <=2000); PHENCYCLIDINE SCREEN,URINE NEGATIVE ng/mL (NEG <=25)
[2022-10-25 13:12] LABS: APPEARANCE,URINE CLEAR (CLEAR); BILIRUBIN,URINE NEGATIVE (NEGATIVE); BLOOD, URINE 1+ (NEGATIVE); COLOR,URINE YELLOW (YELLOW); LEUKOCYTE ESTERASE ,URINE NEGATIVE (NEGATIVE); NITRITE, URINE NEGATIVE (NEGATIVE); PH,URINE 5.5 (5.0-9.0); PROTEIN,URINE 3+ (NEGATIVE); UGLUCOSE 3+ (NEGATIVE)
[2022-10-25 14:12] LABS: RBC,URINE 0-5 /HPF (0-5); WBC,URINE 0-5 /HPF (0-5)
[2022-10-25 14:13] LABS: BACTERIA,URINE FEW /HPF (None Seen); CALCIUM OXALATE CRYSTALS,UR None Seen /HPF (None Seen); COARSE GRANULAR CASTS,URINE None Seen /LPF (None Seen); CYSTINE CRYSTALS,URINE None Seen /HPF (None Seen); FATTY CASTS,URINE None Seen /LPF (None Seen); FINE GRANULAR CASTS,URINE None Seen /LPF (None Seen); HYALINE CASTS, URINE None Seen /LPF (None Seen); MUCUS,URINE None Seen /LPF (None Seen); OTHER CASTS, URINE None Seen /LPF (None Seen); OTHER CRYSTALS,URINE None Seen /HPF (None Seen); RED BLOOD CELL CASTS,URINE None Seen /LPF (None Seen); SQUAMOUS EPITHELIAL CELL,UR 0-3 (FEW) /LPF (0-3 (FEW)); TRICHOMONAS,URINE None Seen /HPF (None Seen); TRIPLE PHOSPHATE CRYSTAL,UR None Seen /HPF (None Seen); URIC ACID CRYSTALS,URINE None Seen /HPF (None Seen); URINE AMORPHOUS PHOSPHATES None Seen /HPF (None Seen); URINE AMORPHOUS URATE None Seen /HPF (None Seen); WAXY CASTS,URINE None Seen /LPF (None Seen); WHITE BLOOD CELL CASTS,URINE None Seen /LPF (None Seen); YEAST,URINE None Seen /HPF (None Seen)
[2022-10-25] MEDS ORDERED: ATORVASTATIN 20 MG TAB PO SCH (21:00)
[2022-10-25] MEDS ORDERED: INSULIN LANTUS 100 UNITS/ML 10 ML VIAL SUBQ SCH (21:00)
[2022-10-26] VITALS: BP 130/97; PULSE 95; RESP 19; TEMP 97.4; O2SAT 96
[2022-10-26 03:44] VITALS: PULSE 86
[2022-10-26 04:00] VITALS: BP 98/71; PULSE 71; RESP 17; TEMP 98.2; O2SAT 95
[2022-10-26] MEDS: BLOOD GLUCOSE MONITORING 1 DEV DEV FS SCH ×2 (06:31→11:53)
[2022-10-26] MEDS: INSULIN LISPRO SLIDING SCALE 100 UNITS/ML VIAL SUBQ PRN ×2 (06:37→11:54)
[2022-10-26 06:57] LABS: BASOPHILS # (AUTO) 0.1 K/uL (0.00-0.22); BASOPHILS % (AUTO) 1.3 % (0.0-2.0); EOSINOPHILS # (AUTO) 0.3 K/uL (0-0.4); EOSINOPHILS % (AUTO) 5.2 % (0.0-4.0); HEMATOCRIT 35.2 % (36-48); HEMOGLOBIN 11.5 g/dL (12.0-16.0); LYMPHOCYTES # (AUTO) 1.4 K/uL (2.5-16.5); LYMPHOCYTES % (AUTO) 25.1 % (20.5-51.1); MEAN CORPUSCULAR HEMOGLOBIN 25 pg (27-31); MEAN CORPUSCULAR HGB CONC 33 g/dL (33-37); MEAN CORPUSCULAR VOLUME 77.2 fL (80-94); MONOCYTES # (AUTO) 0.4 K/uL (0.8-1.0); NEUTROPHILS # (AUTO) 3.4 K/uL (1.8-7.7); NEUTROPHILS % (AUTO) 61.4 % (42.2-75.2); PLATELET COUNT (AUTO) 203 K/uL (140-450); RED BLOOD CELL COUNT(AUTO) 4.56 MIL/uL (4.20-5.40); RED CELL DISTRIBUTION WIDTH 16.7 % (11.6-13.7); WHITE BLOOD COUNT (AUTO) 5.5 K/uL (4.8-10.8)
[2022-10-26 07:19] LABS: ALBUMIN 2.4 g/dL (3.4-5.0); ANION GAP 10.4 (8-16); CALCIUM 7.8 mg/dL (8.5-10.1); CREATININE 1.3 mg/dL (0.6-1.3); POTASSIUM 3.4 mmol/L (3.5-5.1); TOTAL BILIRUBIN 0.3 mg/dL (0.0-1.0); TOTAL PROTEIN, SERUM 6.9 g/dL (6.4-8.2)
[2022-10-26 08:00] VITALS: BP 128/81; PULSE 67; PULSE 87; RESP 20; TEMP 97.8; O2SAT 98
[2022-10-26] MEDS: SPIRONOLACTONE 25 MG TAB PO SCH (08:37)
[2022-10-26] MEDS: carvediloL 12.5 MG TAB PO SCH (08:37)
[2022-10-26] MEDS: BUMETANIDE 1 MG TAB PO SCH ×2 (08:37→13:05)
[2022-10-26] MEDS: APIXABAN 2.5 MG TAB PO SCH (08:38)
[2022-10-26] MEDS: ASPIRIN 81 MG TAB.CHEW PO SCH (08:38)
[2022-10-26] MEDS: PANTOPRAZOLE 40 MG TABEC PO SCH (08:39)
[2022-10-26] MEDS: lisinopriL 5 MG TAB PO SCH (08:43)
[2022-10-26 09:00] VITALS: RESP 20; O2SAT 98
[2022-10-26 12:00] VITALS: BP 110/70; PULSE 72; PULSE 87; RESP 20; TEMP 97.5; O2SAT 98
== END 2022-10-26 13:57 | disposition home health service (06) | DRG 469 ==
LOC: MED 21:13 → MTU 10-25 00:22
PROVIDERS: ADMIT Student in an Organized Health Care Education/Training Program; ATTEND Student in an Organized Health Care Education/Training Program
DX: N17.9 Acute kidney failure, unspecified (principal); R65.11 Systemic inflammatory response syndrome (SIRS) of non-infectious origin with acute organ dysfunction; I21.A1 Myocardial infarction type 2; E11.22 Type 2 diabetes mellitus with diabetic chronic kidney disease; E87.1 Hypo-osmolality and hyponatremia; I48.0 Paroxysmal atrial fibrillation; E44.0 Moderate protein-calorie malnutrition; I13.0 Hypertensive heart and chronic kidney disease with heart failure and stage 1 through stage 4 chronic kidney disease, or unspecified chronic kidney disease; I25.5 Ischemic cardiomyopathy; E11.65 Type 2 diabetes mellitus with hyperglycemia; E86.0 Dehydration; I50.22 Chronic systolic (congestive) heart failure; I44.7 Left bundle-branch block, unspecified; E78.5 Hyperlipidemia, unspecified; J44.9 Chronic obstructive pulmonary disease, unspecified; N18.9 Chronic kidney disease, unspecified; Z79.899 Other long term (current) drug therapy; Z88.8 Allergy status to other drugs, medicaments and biological substances; Z88.6 Allergy status to analgesic agent; Z79.82 Long term (current) use of aspirin; Z82.5 Family history of asthma and other chronic lower respiratory diseases; Z83.3 Family history of diabetes mellitus; Z82.3 Family history of stroke; Z82.49 Family history of ischemic heart disease and other diseases of the circulatory system; Z87.891 Personal history of nicotine dependence; Z68.41 Body mass index [BMI] 40.0-44.9, adult
CPT/HCPCS: 36415; 71045; 72110; 80053; 80305; 81001; 82948; 83540; 83735; 83880; 84100; 84484; 85025; 87081; 93005; 96372; 96374; 99285; J1815; J2270

== ENCOUNTER 2022-12-03 12:30 | Emergency (ER) | payer MEDICAID ==
[~2022-12-03] VITALS: Ht 172.7 cm; Wt 117.9 kg
[2022-12-03 12:46] VITALS: BP 179/103; PULSE 100; RESP 20; TEMP 97.6; O2SAT 93
[2022-12-03 14:24] LABS: BASOPHILS # (AUTO) 0.1 K/uL (0.00-0.22); BASOPHILS % (AUTO) 1.7 % (0.0-2.0); EOSINOPHILS # (AUTO) 0.2 K/uL (0-0.4); EOSINOPHILS % (AUTO) 4.1 % (0.0-4.0); HEMATOCRIT 37.5 % (36-48); LYMPHOCYTES # (AUTO) 1.3 K/uL (2.5-16.5); LYMPHOCYTES % (AUTO) 25.4 % (20.5-51.1); MEAN CORPUSCULAR HEMOGLOBIN 24 pg (27-31); MEAN CORPUSCULAR HGB CONC 32 g/dL (33-37); MEAN CORPUSCULAR VOLUME 75.9 fL (80-94); MONOCYTES # (AUTO) 0.4 K/uL (0.8-1.0); NEUTROPHILS # (AUTO) 3.1 K/uL (1.8-7.7); NEUTROPHILS % (AUTO) 60.8 % (42.2-75.2); PLATELET COUNT (AUTO) 232 K/uL (140-450); RED BLOOD CELL COUNT(AUTO) 4.94 MIL/uL (4.20-5.40); RED CELL DISTRIBUTION WIDTH 16.9 % (11.6-13.7); WHITE BLOOD COUNT (AUTO) 5.1 K/uL (4.8-10.8)
[2022-12-03 15:22] LABS: ALBUMIN 2.8 g/dL (3.4-5.0); ANION GAP 16.2 (8-16); CALCIUM 8.7 mg/dL (8.5-10.1); CARBON DIOXIDE 29.7 mmol/L (21-32); CREATININE 1.3 mg/dL (0.6-1.3); POTASSIUM 3.9 mmol/L (3.5-5.1); TOTAL BILIRUBIN 0.2 mg/dL (0.0-1.0); TOTAL PROTEIN, SERUM 7.6 g/dL (6.4-8.2)
[2022-12-03 15:24] LABS: INR 0.95 (0.8-1.2); PARTIAL THROMBOPLASTIN TIME 23.9 secs (22-35.6)
== END 2022-12-03 15:57 | disposition left against medical advice (07) ==
LOC: MED 12:30
DX: R07.9 Chest pain, unspecified (principal); I13.10 Hypertensive heart and chronic kidney disease without heart failure, with stage 1 through stage 4 chronic kidney disease, or unspecified chronic kidney disease; E11.22 Type 2 diabetes mellitus with diabetic chronic kidney disease; N18.9 Chronic kidney disease, unspecified; J45.909 Unspecified asthma, uncomplicated; J44.9 Chronic obstructive pulmonary disease, unspecified; Z79.4 Long term (current) use of insulin; Z79.899 Other long term (current) drug therapy; Z88.5 Allergy status to narcotic agent; Z88.8 Allergy status to other drugs, medicaments and biological substances
CPT/HCPCS: 36415; 71045; 80053; 83880; 84484; 85025; 85610; 85730; 99284; Q0092

== ENCOUNTER 2022-12-04 20:42 | Observation (INO) | payer MEDICAID ==
[~2022-12-04] VITALS: Ht 172.7 cm; Wt 121.6 kg
[2022-12-04 20:48] VITALS: BP 160/114; PULSE 104; RESP 20; TEMP 97.9; O2SAT 100
[2022-12-04 21:51] LABS: BASOPHILS # (AUTO) 0.1 K/uL (0.00-0.22); BASOPHILS % (AUTO) 1.9 % (0.0-2.0); EOSINOPHILS # (AUTO) 0.2 K/uL (0-0.4); EOSINOPHILS % (AUTO) 4.3 % (0.0-4.0); HEMATOCRIT 35.4 % (36-48); HEMOGLOBIN 11.2 g/dL (12.0-16.0); LYMPHOCYTES # (AUTO) 1.4 K/uL (2.5-16.5); LYMPHOCYTES % (AUTO) 25.5 % (20.5-51.1); MEAN CORPUSCULAR HEMOGLOBIN 24 pg (27-31); MEAN CORPUSCULAR HGB CONC 32 g/dL (33-37); MEAN CORPUSCULAR VOLUME 76.5 fL (80-94); MONOCYTES # (AUTO) 0.4 K/uL (0.8-1.0); MONOCYTES % (AUTO) 7.3 % (1.7-9.3); NEUTROPHILS # (AUTO) 3.3 K/uL (1.8-7.7); PLATELET COUNT (AUTO) 215 K/uL (140-450); RED BLOOD CELL COUNT(AUTO) 4.62 MIL/uL (4.20-5.40); RED CELL DISTRIBUTION WIDTH 16.8 % (11.6-13.7); WHITE BLOOD COUNT (AUTO) 5.4 K/uL (4.8-10.8)
[2022-12-04 22:03] LABS: ANION GAP 13.5 (8-16); CALCIUM 8.2 mg/dL (8.5-10.1); CREATININE 1.4 mg/dL (0.6-1.3); POTASSIUM 3.5 mmol/L (3.5-5.1)
[2022-12-04] MEDS ORDERED: MORPHINE SULFATE 4 MG/ML SYR IVP ONE (22:10)
[2022-12-05] MEDS ORDERED: ACETAMINOPHEN 325 MG TAB PO PRN (01:25)
[2022-12-05] MEDS ORDERED: ONDANSETRON 4 MG/2 ML VIAL IVP PRN (01:25)
[2022-12-05] MEDS ORDERED: LORazepam 2 MG/ML VIAL IVP PRN (01:25)
[2022-12-05] MEDS ORDERED: HYDROcodone/APAP 5/325 MG 1 TAB TAB PO PRN (01:25)
[2022-12-05 02:10] VITALS: PULSE 91; RESP 17; O2SAT 99
[2022-12-05 02:16] VITALS: PULSE 105
[2022-12-05 04:00] VITALS: BP 158/101; PULSE 91; RESP 17; TEMP 97.4
[2022-12-05 04:17] VITALS: PULSE 95
[2022-12-05 08:00] VITALS: BP 155/99; PULSE 104; PULSE 91; PULSE 93; RESP 18; TEMP 96.9; O2SAT 99
[2022-12-05] MEDS ORDERED: BUMETANIDE 1 MG/4 ML VIAL IV SCH ×2 (10:54→17:00)
[2022-12-05] MEDS ORDERED: metOLazone 5 MG TAB PO SCH (10:55)
[2022-12-05 16:14] VITALS: BP 155/99; PULSE 93; RESP 18; TEMP 96.9
[2022-12-05] MEDS ORDERED: APIXABAN 2.5 MG TAB PO SCH (21:00)
[2022-12-05] MEDS ORDERED: carvediloL 12.5 MG TAB PO SCH (21:00)
[2022-12-06] MEDS ORDERED: lisinopriL 5 MG TAB PO SCH (09:00)
[2022-12-06] MEDS ORDERED: ATORVASTATIN 20 MG TAB PO SCH (09:00)
[2022-12-06] MEDS ORDERED: SPIRONOLACTONE 25 MG TAB PO SCH (09:00)
[2022-12-06] MEDS ORDERED: ECOTRIN 81 MG TABEC PO SCH (09:00)
== END 2022-12-05 17:45 | disposition home or self-care (01) ==
LOC: MED 20:42 → MTU 12-05 01:29
PROVIDERS: ADMIT Internal Medicine; ATTEND Internal Medicine
DX: R07.89 Other chest pain (principal); I25.5 Ischemic cardiomyopathy; I13.0 Hypertensive heart and chronic kidney disease with heart failure and stage 1 through stage 4 chronic kidney disease, or unspecified chronic kidney disease; E11.22 Type 2 diabetes mellitus with diabetic chronic kidney disease; I50.23 Acute on chronic systolic (congestive) heart failure; N18.9 Chronic kidney disease, unspecified; I44.7 Left bundle-branch block, unspecified; J44.9 Chronic obstructive pulmonary disease, unspecified; I48.0 Paroxysmal atrial fibrillation; E78.5 Hyperlipidemia, unspecified; E66.9 Obesity, unspecified; Z79.899 Other long term (current) drug therapy
CPT/HCPCS: 36415; 71045; 80048; 83880; 84484; 85025; 87081; 96374; 96375; 99284; G0378; J2270; J3490

== ENCOUNTER 2022-12-13 05:08 | Inpatient (IN) | payer MEDICAID ==
[2022-12-13] VITALS (7 sets, daily range): BP systolic 141–180; BP diastolic 81–111; PULSE 20–113; RESP 18–26; TEMP 97.5–98.1; O2SAT 96–100
[~2022-12-13] VITALS: Ht 172.7 cm; Wt 121.6 kg
[2022-12-13] MEDS ORDERED: MORPHINE SULFATE 4 MG/ML SYR IVP ONE (05:45)
[2022-12-13] MEDS ORDERED: ONDANSETRON 4 MG/2 ML VIAL IVP ONE (06:35)
[2022-12-13 06:43] LABS: BASOPHILS # (AUTO) 0.1 K/uL (0.00-0.22); BASOPHILS % (AUTO) 1.7 % (0.0-2.0); EOSINOPHILS # (AUTO) 0.2 K/uL (0-0.4); EOSINOPHILS % (AUTO) 3.5 % (0.0-4.0); HEMATOCRIT 36.4 % (36-48); HEMOGLOBIN 11.6 g/dL (12.0-16.0); LYMPHOCYTES # (AUTO) 1.6 K/uL (2.5-16.5); MEAN CORPUSCULAR HEMOGLOBIN 24 pg (27-31); MEAN CORPUSCULAR HGB CONC 32 g/dL (33-37); MEAN CORPUSCULAR VOLUME 75.6 fL (80-94); MONOCYTES # (AUTO) 0.4 K/uL (0.8-1.0); MONOCYTES % (AUTO) 5.7 % (1.7-9.3); NEUTROPHILS # (AUTO) 3.9 K/uL (1.8-7.7); NEUTROPHILS % (AUTO) 63.1 % (42.2-75.2); PLATELET COUNT (AUTO) 221 K/uL (140-450); RED BLOOD CELL COUNT(AUTO) 4.82 MIL/uL (4.20-5.40); RED CELL DISTRIBUTION WIDTH 17.2 % (11.6-13.7); WHITE BLOOD COUNT (AUTO) 6.2 K/uL (4.8-10.8)
[2022-12-13 07:04] LABS: ALANINE AMINOTRANSFERASE 22 U/L (12-78); ALBUMIN 2.9 g/dL (3.4-5.0); ALKALINE PHOSPHATASE 153 U/L (50-136); ASPARTATE AMINOTRANSFERASE 27 U/L (15-37); CALCIUM 8.5 mg/dL (8.5-10.1); CARBON DIOXIDE 30.2 mmol/L (21-32); CHLORIDE 99 mmol/L (98-107); CREATININE 1.4 mg/dL (0.6-1.3); GFR ARICAN-AMERICAN 50 mL/min (>90); GFR NON ARICAN-AMERICAN 41 mL/min (>90); GLUCOSE 351 mg/dL (74-106); LIPASE 82 U/L (73-393); POTASSIUM 4.2 mmol/L (3.5-5.1); SODIUM SERUM 136 mmol/L (136-145); TOTAL BILIRUBIN 0.3 mg/dL (0.0-1.0); TOTAL PROTEIN, SERUM 7.8 g/dL (6.4-8.2); UREA NITROGEN, BLOOD 18 mg/dL (7-18)
[2022-12-13] MEDS ORDERED: FUROSEMIDE 20 MG/2 ML VIAL IVP ONE (07:25)
[2022-12-13] MEDS ORDERED: ENALAPRILAT 2.5 MG/2 ML VIAL IVP ONE (07:25)
[2022-12-13] MEDS ORDERED: INSULIN REGULAR, HUMAN 100 UNIT/ML VIAL SUBQ ONE (08:05)
[2022-12-13] MEDS ORDERED: MAGNESIUM OXIDE 400 MG TAB PO PRN ×2 (09:45→10:00)
[2022-12-13] MEDS ORDERED: ONDANSETRON 4 MG/2 ML VIAL IVP PRN ×2 (09:45→10:00)
[2022-12-13] MEDS ORDERED: MORPHINE SULFATE 4 MG/ML SYR IVP PRN (09:45)
[2022-12-13] MEDS ORDERED: HYDROcodone/APAP 5/325 MG 1 TAB TAB PO PRN ×2 (09:45→10:00)
[2022-12-13] MEDS ORDERED: ACETAMINOPHEN 325 MG TAB PO PRN ×2 (09:45→10:00)
[2022-12-13] MEDS ORDERED: POTASSIUM CHLORIDE 10 MEQ TABER PO PRN ×2 (09:45→10:00)
[2022-12-13] MEDS ORDERED: MORPHINE SULFATE 2 MG/ML SYR IVP ONE (10:15)
[2022-12-13] MEDS ORDERED: BUMETANIDE 1 MG/4 ML VIAL IV SCH (18:00)
[2022-12-13] MEDS: MORPHINE SULFATE 4 MG/ML SYR IVP PRN ×2 (18:42→23:14)
[2022-12-13] MEDS: carvediloL 12.5 MG TAB PO SCH (20:17)
[2022-12-13] MEDS: APIXABAN 2.5 MG TAB PO SCH (20:20)
[2022-12-13] MEDS ORDERED: FUROSEMIDE 40 MG/4 ML VIAL IVP ONE ×2 (21:00)
[2022-12-14] VITALS (7 sets, daily range): BP systolic 105–137; BP diastolic 67–93; PULSE 78–100; RESP 18–20; TEMP 97.6–98.5; O2SAT 93–100
[2022-12-14 07:02] LABS: BASOPHILS # (AUTO) 0.1 K/uL (0.00-0.22); BASOPHILS % (AUTO) 1.3 % (0.0-2.0); EOSINOPHILS # (AUTO) 0.4 K/uL (0-0.4); EOSINOPHILS % (AUTO) 7.7 % (0.0-4.0); HEMATOCRIT 35.6 % (36-48); HEMOGLOBIN 11.1 g/dL (12.0-16.0); LYMPHOCYTES # (AUTO) 1.4 K/uL (2.5-16.5); LYMPHOCYTES % (AUTO) 27.2 % (20.5-51.1); MEAN CORPUSCULAR HEMOGLOBIN 24 pg (27-31); MEAN CORPUSCULAR HGB CONC 31 g/dL (33-37); MEAN CORPUSCULAR VOLUME 76.6 fL (80-94); MONOCYTES # (AUTO) 0.3 K/uL (0.8-1.0); MONOCYTES % (AUTO) 6.5 % (1.7-9.3); NEUTROPHILS # (AUTO) 2.9 K/uL (1.8-7.7); NEUTROPHILS % (AUTO) 57.3 % (42.2-75.2); PLATELET COUNT (AUTO) 223 K/uL (140-450); RED BLOOD CELL COUNT(AUTO) 4.65 MIL/uL (4.20-5.40); RED CELL DISTRIBUTION WIDTH 17.1 % (11.6-13.7); WHITE BLOOD COUNT (AUTO) 5.1 K/uL (4.8-10.8)
[2022-12-14 07:09] LABS: ANION GAP 10.2 (8-16); CALCIUM 8.5 mg/dL (8.5-10.1); CARBON DIOXIDE 32.1 mmol/L (21-32); CREATININE 1.7 mg/dL (0.6-1.3); POTASSIUM 4.3 mmol/L (3.5-5.1)
[2022-12-14] MEDS: MORPHINE SULFATE 4 MG/ML SYR IVP PRN ×2 (08:50→19:51)
[2022-12-14] MEDS: ATORVASTATIN 20 MG TAB PO SCH (09:54)
[2022-12-14] MEDS: ECOTRIN 81 MG TABEC PO SCH (09:54)
[2022-12-14] MEDS: lisinopriL 5 MG TAB PO SCH (09:54)
[2022-12-14] MEDS: carvediloL 12.5 MG TAB PO SCH ×2 (09:55→20:10)
[2022-12-14] MEDS: APIXABAN 2.5 MG TAB PO SCH ×2 (09:55→20:11)
[2022-12-14] MEDS: SPIRONOLACTONE 25 MG TAB PO SCH (09:55)
[2022-12-14] MEDS: BUMETANIDE 1 MG/4 ML VIAL IV SCH ×2 (10:15→17:31)
[2022-12-14] MEDS ORDERED: MAG SULF 2000 MG/WATER PREMIX 50 ML IV SCH (10:30)
[2022-12-15] MEDS: MORPHINE SULFATE 4 MG/ML SYR IVP PRN ×2 (03:59→10:10)
[2022-12-15 04:00] VITALS: BP 120/62; PULSE 70; RESP 18; TEMP 97.6; O2SAT 98
[2022-12-15 06:41] LABS: ANION GAP 7.9 (8-16); CALCIUM 8.9 mg/dL (8.5-10.1); CARBON DIOXIDE 33.8 mmol/L (21-32); CREATININE 1.9 mg/dL (0.6-1.3); POTASSIUM 4.7 mmol/L (3.5-5.1)
[2022-12-15 07:12] LABS: BASOPHILS # (AUTO) 0.1 K/uL (0.00-0.22); BASOPHILS % (AUTO) 1.4 % (0.0-2.0); EOSINOPHILS # (AUTO) 0.5 K/uL (0-0.4); EOSINOPHILS % (AUTO) 7.7 % (0.0-4.0); HEMATOCRIT 36.3 % (36-48); HEMOGLOBIN 11.5 g/dL (12.0-16.0); LYMPHOCYTES # (AUTO) 1.5 K/uL (2.5-16.5); LYMPHOCYTES % (AUTO) 24.5 % (20.5-51.1); MEAN CORPUSCULAR HEMOGLOBIN 24 pg (27-31); MEAN CORPUSCULAR HGB CONC 32 g/dL (33-37); MEAN CORPUSCULAR VOLUME 76.7 fL (80-94); MONOCYTES # (AUTO) 0.4 K/uL (0.8-1.0); MONOCYTES % (AUTO) 6.9 % (1.7-9.3); NEUTROPHILS # (AUTO) 3.7 K/uL (1.8-7.7); NEUTROPHILS % (AUTO) 59.5 % (42.2-75.2); PLATELET COUNT (AUTO) 246 K/uL (140-450); RED BLOOD CELL COUNT(AUTO) 4.73 MIL/uL (4.20-5.40); WHITE BLOOD COUNT (AUTO) 6.3 K/uL (4.8-10.8)
[2022-12-15 07:32] VITALS: O2SAT 100
[2022-12-15 08:00] VITALS: PULSE 68; RESP 19; O2SAT 100; O2SAT 99
[2022-12-15] MEDS: ATORVASTATIN 20 MG TAB PO SCH (08:40)
[2022-12-15] MEDS: SPIRONOLACTONE 25 MG TAB PO SCH (08:41)
[2022-12-15] MEDS: ECOTRIN 81 MG TABEC PO SCH (08:41)
[2022-12-15] MEDS: BUMETANIDE 1 MG TAB PO SCH ×2 (08:42→13:25)
[2022-12-15] MEDS: lisinopriL 5 MG TAB PO SCH (08:42)
[2022-12-15] MEDS: carvediloL 12.5 MG TAB PO SCH (08:42)
[2022-12-15] MEDS: APIXABAN 2.5 MG TAB PO SCH (08:47)
[2022-12-23] MEDS ORDERED: BUMETANIDE 1 MG/4 ML VIAL IV SCH (09:00)
== END 2022-12-15 15:37 | disposition home or self-care (01) | DRG 194 ==
LOC: MED 05:08 → UNDOADMOB 09:45 → MED 09:45 → MTU 09:45 → OBSVTOIN 13:22
PROVIDERS: ADMIT Student in an Organized Health Care Education/Training Program; ATTEND Student in an Organized Health Care Education/Training Program
DX: I13.0 Hypertensive heart and chronic kidney disease with heart failure and stage 1 through stage 4 chronic kidney disease, or unspecified chronic kidney disease (principal); I21.A1 Myocardial infarction type 2; N17.9 Acute kidney failure, unspecified; E44.1 Mild protein-calorie malnutrition; R64 Cachexia; J96.10 Chronic respiratory failure, unspecified whether with hypoxia or hypercapnia; Z79.01 Long term (current) use of anticoagulants; G47.33 Obstructive sleep apnea (adult) (pediatric); E66.9 Obesity, unspecified; I48.0 Paroxysmal atrial fibrillation; I50.23 Acute on chronic systolic (congestive) heart failure; Z68.41 Body mass index [BMI] 40.0-44.9, adult; I25.5 Ischemic cardiomyopathy; I44.7 Left bundle-branch block, unspecified; J44.9 Chronic obstructive pulmonary disease, unspecified; I25.10 Atherosclerotic heart disease of native coronary artery without angina pectoris; N18.9 Chronic kidney disease, unspecified; Z88.1 Allergy status to other antibiotic agents; Z88.8 Allergy status to other drugs, medicaments and biological substances; Z79.899 Other long term (current) drug therapy
CPT/HCPCS: 36415; 71045; 80048; 80053; 83690; 83735; 83880; 84484; 85025; 93005; 96372; 96374; 96375; 96376; 99285; J1815; J1940; J2270; J2405; J3475; J3490; Q0092

== ENCOUNTER 2022-12-22 23:45 | Inpatient (IN) | payer MEDICAID ==
[~2022-12-22] VITALS: Ht 172.7 cm; Wt 121.6 kg
[~2022-12-22 23:45] MED LIST changes: -ALBU0.0912 INH
[2022-12-22 23:50] VITALS: BP 170/90; PULSE 102; RESP 17; TEMP 98.3; O2SAT 98
[2022-12-23 00:38] LABS: BASOPHILS # (AUTO) 0.1 K/uL (0.00-0.22); EOSINOPHILS # (AUTO) 0.2 K/uL (0-0.4); EOSINOPHILS % (AUTO) 2.8 % (0.0-4.0); HEMATOCRIT 37.8 % (36-48); LYMPHOCYTES # (AUTO) 2.6 K/uL (2.5-16.5); LYMPHOCYTES % (AUTO) 36.4 % (20.5-51.1); MEAN CORPUSCULAR HEMOGLOBIN 24 pg (27-31); MEAN CORPUSCULAR HGB CONC 32 g/dL (33-37); MEAN CORPUSCULAR VOLUME 75.4 fL (80-94); MONOCYTES # (AUTO) 0.3 K/uL (0.8-1.0); MONOCYTES % (AUTO) 4.3 % (1.7-9.3); NEUTROPHILS # (AUTO) 3.9 K/uL (1.8-7.7); NEUTROPHILS % (AUTO) 54.5 % (42.2-75.2); PLATELET COUNT (AUTO) 246 K/uL (140-450); RED BLOOD CELL COUNT(AUTO) 5.01 MIL/uL (4.20-5.40); RED CELL DISTRIBUTION WIDTH 17.7 % (11.6-13.7); WHITE BLOOD COUNT (AUTO) 7.1 K/uL (4.8-10.8)
[2022-12-23 01:01] LABS: ALANINE AMINOTRANSFERASE 14 U/L (12-78); ALBUMIN 2.9 g/dL (3.4-5.0); ALKALINE PHOSPHATASE 162 U/L (50-136); ANION GAP 12.7 (8-16); ASPARTATE AMINOTRANSFERASE 19 U/L (15-37); CALCIUM 8.9 mg/dL (8.5-10.1); CARBON DIOXIDE 27.3 mmol/L (21-32); CHLORIDE 93 mmol/L (98-107); CREATININE 1.6 mg/dL (0.6-1.3); GFR ARICAN-AMERICAN 43 mL/min (>90); GFR NON ARICAN-AMERICAN 35 mL/min (>90); LIPASE 34 U/L (73-393); SODIUM SERUM 129 mmol/L (136-145); TOTAL BILIRUBIN 0.3 mg/dL (0.0-1.0); TOTAL PROTEIN, SERUM 7.9 g/dL (6.4-8.2); UREA NITROGEN, BLOOD 17 mg/dL (7-18)
[2022-12-23 01:06] LABS: GLUCOSE 523 mg/dL (74-106)
[2022-12-23] MEDS ORDERED: ASPIRIN 325 MG TAB PO ONE (01:25)
[2022-12-23] MEDS ORDERED: INSULIN REGULAR, HUMAN 100 UNIT/ML VIAL SUBQ ONE (01:25)
[2022-12-23] MEDS ORDERED: MORPHINE SULFATE 4 MG/ML SYR IVP ONE (01:30)
[2022-12-23] MEDS ORDERED: ONDANSETRON 4 MG/2 ML VIAL IM/IVP PRN (05:10)
[2022-12-23] MEDS ORDERED: guaiFENesin DM 200/20 MG-10 ML 10 ML UDC PO PRN (05:10)
[2022-12-23] MEDS ORDERED: POTASSIUM CHLORIDE 10 MEQ TABER PO PRN (05:10)
[2022-12-23] MEDS ORDERED: ZOLPIDEM 5 MG TAB PO PRN (05:10)
[2022-12-23] MEDS ORDERED: ACETAMINOPHEN 325 MG TAB PO PRN ×2 (05:10→07:30)
[2022-12-23] MEDS ORDERED: DOCUSATE SODIUM 100 MG GELCAP PO PRN (05:10)
[2022-12-23] MEDS ORDERED: DEXTROSE 50% 50 ML SYR IVP PRN (05:15)
[2022-12-23 06:47] LABS: BASOPHILS # (AUTO) 0.1 K/uL (0.00-0.22); BASOPHILS % (AUTO) 2.2 % (0.0-2.0); EOSINOPHILS # (AUTO) 0.3 K/uL (0-0.4); EOSINOPHILS % (AUTO) 5.4 % (0.0-4.0); HEMATOCRIT 35.3 % (36-48); HEMOGLOBIN 11.2 g/dL (12.0-16.0); LYMPHOCYTES # (AUTO) 1.7 K/uL (2.5-16.5); LYMPHOCYTES % (AUTO) 27.3 % (20.5-51.1); MEAN CORPUSCULAR HEMOGLOBIN 24 pg (27-31); MEAN CORPUSCULAR HGB CONC 32 g/dL (33-37); MEAN CORPUSCULAR VOLUME 75.3 fL (80-94); MONOCYTES # (AUTO) 0.5 K/uL (0.8-1.0); MONOCYTES % (AUTO) 8.3 % (1.7-9.3); NEUTROPHILS # (AUTO) 3.6 K/uL (1.8-7.7); NEUTROPHILS % (AUTO) 56.8 % (42.2-75.2); PLATELET COUNT (AUTO) 248 K/uL (140-450); RED BLOOD CELL COUNT(AUTO) 4.69 MIL/uL (4.20-5.40); RED CELL DISTRIBUTION WIDTH 17.4 % (11.6-13.7); WHITE BLOOD COUNT (AUTO) 6.3 K/uL (4.8-10.8)
[2022-12-23] MEDS: BLOOD GLUCOSE MONITORING 1 DEV DEV FS SCH ×2 (07:06→12:01)
[2022-12-23 07:08] LABS: ALBUMIN 2.8 g/dL (3.4-5.0); ANION GAP 9.7 (8-16); CALCIUM 8.9 mg/dL (8.5-10.1); CREATININE 1.5 mg/dL (0.6-1.3); POTASSIUM 3.7 mmol/L (3.5-5.1); TOTAL BILIRUBIN 0.4 mg/dL (0.0-1.0); TOTAL PROTEIN, SERUM 7.7 g/dL (6.4-8.2)
[2022-12-23] MEDS: INSULIN LISPRO SLIDING SCALE 100 UNITS/ML VIAL SUBQ PRN ×3 (07:09→12:02)
[2022-12-23] MEDS ORDERED: ALBUTEROL SULFATE/IPRATROPIU 3 ML SOL IH PRN (07:20)
[2022-12-23 08:07] VITALS: PULSE 88; RESP 16; O2SAT 95
[2022-12-23] MEDS: hydrALAZINE 10 MG TAB PO SCH ×2 (08:24→12:05)
[2022-12-23] MEDS ORDERED: SPIRONOLACTONE 25 MG TAB PO SCH (09:00)
[2022-12-23] MEDS ORDERED: FUROSEMIDE 40 MG/4 ML VIAL IVP SCH (09:00)
[2022-12-23] MEDS ORDERED: carvediloL 12.5 MG TAB PO SCH ×2 (09:00)
[2022-12-23] MEDS ORDERED: PANTOPRAZOLE 40 MG TABEC PO SCH (09:00)
[2022-12-23] MEDS ORDERED: ASPIRIN 81 MG TAB.CHEW PO SCH (09:00)
[2022-12-23] MEDS ORDERED: APIXABAN 2.5 MG TAB PO SCH (09:00)
[2022-12-23] MEDS ORDERED: INSULIN NPH HUM/REG INSULIN HM 100 UNIT/ML 10 ML VIAL SUBQ SCH (09:00)
[2022-12-23] MEDS ORDERED: BUMETANIDE 1 MG/4 ML VIAL IV SCH (09:00)
[2022-12-23 09:32] VITALS: PULSE 81; RESP 18
[2022-12-23 11:48] VITALS: BP 117/72; PULSE 62; RESP 18; TEMP 97.4; O2SAT 99
[2022-12-23 12:21] VITALS: PULSE 110
[2022-12-23 12:47] VITALS: BP 117/72; PULSE 62; RESP 18; TEMP 97.4
[2022-12-23] MEDS ORDERED: ATORVASTATIN 20 MG TAB PO SCH (21:00)
== END 2022-12-23 13:15 | disposition home or self-care (01) | DRG 190 ==
LOC: MED 23:45 → MTU 12-23 05:11
PROVIDERS: ADMIT Student in an Organized Health Care Education/Training Program; ATTEND Student in an Organized Health Care Education/Training Program
DX: I21.4 Non-ST elevation (NSTEMI) myocardial infarction (principal); N17.0 Acute kidney failure with tubular necrosis; I50.23 Acute on chronic systolic (congestive) heart failure; E44.0 Moderate protein-calorie malnutrition; E87.1 Hypo-osmolality and hyponatremia; E78.5 Hyperlipidemia, unspecified; I48.0 Paroxysmal atrial fibrillation; F10.21 Alcohol dependence, in remission; I25.10 Atherosclerotic heart disease of native coronary artery without angina pectoris; I11.0 Hypertensive heart disease with heart failure; I44.7 Left bundle-branch block, unspecified; G47.33 Obstructive sleep apnea (adult) (pediatric); Z79.4 Long term (current) use of insulin; Z88.1 Allergy status to other antibiotic agents; Z88.8 Allergy status to other drugs, medicaments and biological substances; Z79.899 Other long term (current) drug therapy; Z79.01 Long term (current) use of anticoagulants; Z68.41 Body mass index [BMI] 40.0-44.9, adult
CPT/HCPCS: 36415; 71045; 80053; 82948; 83036; 83690; 83880; 84484; 85025; 87081; 93005; 96372; 96374; 99285; J1815; J1940; J2270; J2405; J3490; Q0092

== ENCOUNTER 2022-12-29 09:22 | Emergency (ER) | payer MEDICAID ==
[~2022-12-29] VITALS: Ht 172.7 cm; Wt 117.9 kg
[2022-12-29 09:41] VITALS: BP 172/105; PULSE 104; RESP 24; TEMP 97.8; O2SAT 92
[2022-12-29 10:48] LABS: BASOPHILS # (AUTO) 0.1 K/uL (0.00-0.22); BASOPHILS % (AUTO) 1.4 % (0.0-2.0); EOSINOPHILS # (AUTO) 0.2 K/uL (0-0.4); HEMATOCRIT 32.9 % (36-48); HEMOGLOBIN 10.5 g/dL (12.0-16.0); LYMPHOCYTES # (AUTO) 1.4 K/uL (2.5-16.5); LYMPHOCYTES % (AUTO) 27.1 % (20.5-51.1); MEAN CORPUSCULAR HEMOGLOBIN 24 pg (27-31); MEAN CORPUSCULAR HGB CONC 32 g/dL (33-37); MEAN CORPUSCULAR VOLUME 74.6 fL (80-94); MONOCYTES # (AUTO) 0.3 K/uL (0.8-1.0); MONOCYTES % (AUTO) 6.1 % (1.7-9.3); NEUTROPHILS # (AUTO) 3.1 K/uL (1.8-7.7); NEUTROPHILS % (AUTO) 61.4 % (42.2-75.2); PLATELET COUNT (AUTO) 241 K/uL (140-450); RED CELL DISTRIBUTION WIDTH 17.6 % (11.6-13.7); WHITE BLOOD COUNT (AUTO) 5.1 K/uL (4.8-10.8)
[2022-12-29 11:15] LABS: ALBUMIN 2.8 g/dL (3.4-5.0); CALCIUM 8.7 mg/dL (8.5-10.1); CARBON DIOXIDE 29.7 mmol/L (21-32); CREATININE 1.3 mg/dL (0.6-1.3); POTASSIUM 3.7 mmol/L (3.5-5.1); TOTAL BILIRUBIN 0.5 mg/dL (0.0-1.0); TOTAL PROTEIN, SERUM 7.3 g/dL (6.4-8.2)
[2022-12-29] MEDS ORDERED: FUROSEMIDE 40 MG/4 ML VIAL IVP ONE (11:20)
[2022-12-29] MEDS ORDERED: ONDANSETRON 4 MG/2 ML VIAL IVP ONE (11:20)
[2022-12-29] MEDS ORDERED: MORPHINE SULFATE 4 MG/ML SYR IVP ONE (11:20)
[2022-12-29 12:04] VITALS: BP 169/107; PULSE 109; RESP 21; O2SAT 96
== END 2022-12-29 13:34 | disposition home or self-care (01) ==
LOC: MED 09:22
DX: I50.9 Heart failure, unspecified (principal); R79.89 Other specified abnormal findings of blood chemistry; J96.11 Chronic respiratory failure with hypoxia; J44.9 Chronic obstructive pulmonary disease, unspecified; E11.9 Type 2 diabetes mellitus without complications; I11.0 Hypertensive heart disease with heart failure; Z79.899 Other long term (current) drug therapy; Z79.4 Long term (current) use of insulin; Z88.5 Allergy status to narcotic agent; Z88.6 Allergy status to analgesic agent; Z88.8 Allergy status to other drugs, medicaments and biological substances
CPT/HCPCS: 36415; 71045; 80053; 83880; 84484; 85025; 93005; 96374; 96375; 99285; J1940; J2270; J2405

== ENCOUNTER 2023-01-03 19:55 | Observation (INO) | payer MEDICAID ==
[~2023-01-03] VITALS: Ht 172.7 cm; Wt 118.4 kg
[2023-01-03 19:58] VITALS: BP 181/111; PULSE 104; RESP 24; TEMP 98.5; O2SAT 98
[2023-01-03 21:53] LABS: BASOPHILS # (AUTO) 0.2 K/uL (0.00-0.22); BASOPHILS % (AUTO) 3.2 % (0.0-2.0); EOSINOPHILS # (AUTO) 0.2 K/uL (0-0.4); EOSINOPHILS % (AUTO) 3.7 % (0.0-4.0); HEMATOCRIT 33.5 % (36-48); HEMOGLOBIN 10.5 g/dL (12.0-16.0); LYMPHOCYTES # (AUTO) 1.6 K/uL (2.5-16.5); LYMPHOCYTES % (AUTO) 30.5 % (20.5-51.1); MEAN CORPUSCULAR HEMOGLOBIN 24 pg (27-31); MEAN CORPUSCULAR HGB CONC 31 g/dL (33-37); MEAN CORPUSCULAR VOLUME 75.3 fL (80-94); MONOCYTES # (AUTO) 0.4 K/uL (0.8-1.0); MONOCYTES % (AUTO) 7.6 % (1.7-9.3); NEUTROPHILS # (AUTO) 2.9 K/uL (1.8-7.7); PLATELET COUNT (AUTO) 290 K/uL (140-450); RED BLOOD CELL COUNT(AUTO) 4.44 MIL/uL (4.20-5.40); RED CELL DISTRIBUTION WIDTH 17.4 % (11.6-13.7); WHITE BLOOD COUNT (AUTO) 5.4 K/uL (4.8-10.8)
[2023-01-03 22:11] LABS: ANION GAP 11.2 (8-16); CALCIUM 8.8 mg/dL (8.5-10.1); CARBON DIOXIDE 27.6 mmol/L (21-32); CREATININE 1.9 mg/dL (0.6-1.3); POTASSIUM 4.8 mmol/L (3.5-5.1); TOTAL BILIRUBIN 0.3 mg/dL (0.0-1.0); TOTAL PROTEIN, SERUM 7.6 g/dL (6.4-8.2)
[2023-01-03 22:12] LABS: LIPASE 19 U/L (16-77)
[2023-01-03] MEDS ORDERED: IPRATROPIUM 0.02% 0.5 MG/2.5 ML NEBU INH ONE (22:25)
[2023-01-03] MEDS ORDERED: ALBUTEROL 0.083% 2.5 MG/3 ML NEBU INH ONE (22:25)
[2023-01-03] MEDS ORDERED: FUROSEMIDE 100 MG/10 ML VIAL IVP ONE (22:50)
[2023-01-03] MEDS ORDERED: MORPHINE SULFATE 4 MG/ML SYR IVP ONE (22:50)
[2023-01-03] MEDS ORDERED: ONDANSETRON 4 MG/2 ML VIAL ONE (23:29)
[2023-01-03] MEDS ORDERED: ONDANSETRON 4 MG/2 ML VIAL IVP ONE (23:30)
[2023-01-04] VITALS (9 sets, daily range): BP systolic 115–138; BP diastolic 72–81; PULSE 63–98; RESP 14–21; TEMP 97.6–98; O2SAT 93–99
[2023-01-04] MEDS ORDERED: IPRATROPIUM 0.02% 0.5 MG/2.5 ML NEBU INH ONE (00:15)
[2023-01-04] MEDS ORDERED: ALBUTEROL 0.083% 2.5 MG/3 ML NEBU INH ONE (00:15)
[2023-01-04] MEDS ORDERED: MAG SULF 2000 MG/WATER PREMIX 50 ML IV PRN (02:30)
[2023-01-04] MEDS ORDERED: KCL 20 MEQ IN 100 mL PREMIX 200 ML IV PRN (02:30)
[2023-01-04] MEDS ORDERED: ONDANSETRON 4 MG/2 ML VIAL IVP PRN (02:30)
[2023-01-04] MEDS ORDERED: ACETAMINOPHEN 325 MG TAB PO PRN (02:30)
[2023-01-04] MEDS ORDERED: LORazepam 1 MG TAB PO PRN (02:30)
[2023-01-04] MEDS ORDERED: HYDROcodone/APAP 5/325 MG 1 TAB TAB PO PRN (02:30)
[2023-01-04] MEDS ORDERED: ZOLPIDEM 5 MG TAB PO PRN (02:30)
[2023-01-04] MEDS ORDERED: POTASSIUM CHLORIDE 10 MEQ TABER PO PRN (02:30)
[2023-01-04] MEDS: MORPHINE SULFATE 4 MG/ML SYR IVP PRN ×3 (04:14→18:46)
[2023-01-04] MEDS: ALBUTEROL SULFATE/IPRATROPIU 3 ML SOL IH SCH ×3 (08:00→20:12)
[2023-01-04] MEDS ORDERED: hydrALAZINE 20 MG/ML VIAL IVP PRN (10:15)
[2023-01-04] MEDS: ATORVASTATIN 20 MG TAB PO SCH (11:23)
[2023-01-04] MEDS: ASPIRIN 81 MG TAB.CHEW PO SCH (11:24)
[2023-01-04] MEDS: carvediloL 12.5 MG TAB PO SCH ×2 (11:24→20:46)
[2023-01-04] MEDS: BUMETANIDE 1 MG/4 ML VIAL IV SCH ×3 (11:25→18:45)
[2023-01-04] MEDS ORDERED: DEXTROSE 50% 50 ML SYR IVP PRN (14:20)
[2023-01-04] MEDS: INSULIN LISPRO SLIDING SCALE 100 UNITS/ML VIAL SUBQ PRN ×3 (14:46→20:54)
[2023-01-04] MEDS: BLOOD GLUCOSE MONITORING 1 DEV DEV FS SCH ×2 (16:30→20:48)
[2023-01-05] VITALS (7 sets, daily range): BP systolic 115–126; BP diastolic 72–87; PULSE 69–82; RESP 14–18; TEMP 96.4–97.6; O2SAT 97–100
[2023-01-05] MEDS: ALBUTEROL SULFATE/IPRATROPIU 3 ML SOL IH SCH ×3 (01:05→13:16)
[2023-01-05] MEDS: MORPHINE SULFATE 4 MG/ML SYR IVP PRN ×2 (05:34→10:04)
[2023-01-05] MEDS: BLOOD GLUCOSE MONITORING 1 DEV DEV FS SCH ×2 (07:06→12:09)
[2023-01-05 07:20] LABS: ANION GAP 10.6 (8-16); CALCIUM 9.2 mg/dL (8.5-10.1); CARBON DIOXIDE 31.7 mmol/L (21-32); CREATININE 2.2 mg/dL (0.6-1.3); POTASSIUM 5.3 mmol/L (3.5-5.1)
[2023-01-05 07:23] LABS: BASOPHILS # (AUTO) 0.1 K/uL (0.00-0.22); BASOPHILS % (AUTO) 1.3 % (0.0-2.0); EOSINOPHILS # (AUTO) 0.4 K/uL (0-0.4); EOSINOPHILS % (AUTO) 7.2 % (0.0-4.0); HEMATOCRIT 34.2 % (36-48); HEMOGLOBIN 10.8 g/dL (12.0-16.0); LYMPHOCYTES # (AUTO) 1.1 K/uL (2.5-16.5); LYMPHOCYTES % (AUTO) 22.4 % (20.5-51.1); MEAN CORPUSCULAR HEMOGLOBIN 24 pg (27-31); MEAN CORPUSCULAR HGB CONC 31 g/dL (33-37); MEAN CORPUSCULAR VOLUME 75.9 fL (80-94); MONOCYTES # (AUTO) 0.4 K/uL (0.8-1.0); MONOCYTES % (AUTO) 8.4 % (1.7-9.3); NEUTROPHILS # (AUTO) 3.1 K/uL (1.8-7.7); NEUTROPHILS % (AUTO) 60.7 % (42.2-75.2); PLATELET COUNT (AUTO) 239 K/uL (140-450); RED BLOOD CELL COUNT(AUTO) 4.51 MIL/uL (4.20-5.40); RED CELL DISTRIBUTION WIDTH 17.8 % (11.6-13.7); WHITE BLOOD COUNT (AUTO) 5.1 K/uL (4.8-10.8)
[2023-01-05] MEDS: ASPIRIN 81 MG TAB.CHEW PO SCH (09:23)
[2023-01-05] MEDS: ATORVASTATIN 20 MG TAB PO SCH (09:23)
[2023-01-05] MEDS: carvediloL 12.5 MG TAB PO SCH (09:23)
[2023-01-05] MEDS: BUMETANIDE 1 MG/4 ML VIAL IV SCH (09:55)
[2023-01-05] MEDS: INSULIN LISPRO SLIDING SCALE 100 UNITS/ML VIAL SUBQ PRN (12:10)
== END 2023-01-05 14:05 | disposition home or self-care (01) ==
LOC: MED 19:55 → MTU 01-04 02:30
PROVIDERS: ADMIT Student in an Organized Health Care Education/Training Program; ATTEND Student in an Organized Health Care Education/Training Program
DX: I21.4 Non-ST elevation (NSTEMI) myocardial infarction (principal); I13.0 Hypertensive heart and chronic kidney disease with heart failure and stage 1 through stage 4 chronic kidney disease, or unspecified chronic kidney disease; E11.22 Type 2 diabetes mellitus with diabetic chronic kidney disease; I50.23 Acute on chronic systolic (congestive) heart failure; N18.9 Chronic kidney disease, unspecified; I48.0 Paroxysmal atrial fibrillation; G47.30 Sleep apnea, unspecified; J44.9 Chronic obstructive pulmonary disease, unspecified; E66.9 Obesity, unspecified; E78.5 Hyperlipidemia, unspecified; Z79.899 Other long term (current) drug therapy; Z87.891 Personal history of nicotine dependence
CPT/HCPCS: 36415; 71045; 80048; 80053; 82948; 83690; 83735; 83880; 84484; 85025; 87081; 94640; 94644; 94760; 96372; 96374; 96375; 96376; 99284; G0378; J1644; J1815; J1940; J2270; J2405; J3490; J7613; J7644

== ENCOUNTER 2023-01-15 20:35 | Emergency (ER) | payer MEDICAID ==
[~2023-01-15] VITALS: Ht 172.7 cm; Wt 113.9 kg
[2023-01-15 20:38] VITALS: BP 201/109; PULSE 110; RESP 22; TEMP 98; O2SAT 97
[2023-01-15 21:10] LABS: BASOPHILS # (AUTO) 0.1 K/uL (0.00-0.22); BASOPHILS % (AUTO) 1.7 % (0.0-2.0); EOSINOPHILS # (AUTO) 0.3 K/uL (0-0.4); EOSINOPHILS % (AUTO) 5.5 % (0.0-4.0); HEMATOCRIT 34.1 % (36-48); HEMOGLOBIN 10.6 g/dL (12.0-16.0); LYMPHOCYTES # (AUTO) 1.4 K/uL (2.5-16.5); LYMPHOCYTES % (AUTO) 23.4 % (20.5-51.1); MEAN CORPUSCULAR HEMOGLOBIN 23 pg (27-31); MEAN CORPUSCULAR HGB CONC 31 g/dL (33-37); MEAN CORPUSCULAR VOLUME 75.5 fL (80-94); MONOCYTES # (AUTO) 0.4 K/uL (0.8-1.0); MONOCYTES % (AUTO) 6.1 % (1.7-9.3); NEUTROPHILS # (AUTO) 3.9 K/uL (1.8-7.7); NEUTROPHILS % (AUTO) 63.3 % (42.2-75.2); PLATELET COUNT (AUTO) 217 K/uL (140-450); RED BLOOD CELL COUNT(AUTO) 4.52 MIL/uL (4.20-5.40); RED CELL DISTRIBUTION WIDTH 18.1 % (11.6-13.7); WHITE BLOOD COUNT (AUTO) 6.1 K/uL (4.8-10.8)
[2023-01-15 21:22] LABS: ALBUMIN 2.9 g/dL (3.4-5.0); ANION GAP 12.9 (8-16); CALCIUM 7.9 mg/dL (8.5-10.1); CARBON DIOXIDE 28.9 mmol/L (21-32); CREATININE 1.5 mg/dL (0.6-1.3); POTASSIUM 3.8 mmol/L (3.5-5.1); TOTAL BILIRUBIN 0.3 mg/dL (0.0-1.0); TOTAL PROTEIN, SERUM 7.5 g/dL (6.4-8.2)
[2023-01-15] MEDS ORDERED: MORPHINE SULFATE 4 MG/ML SYR IVP ONE ×2 (22:20→23:45)
[2023-01-16 00:36] VITALS: BP 159/99; PULSE 90; RESP 18; TEMP 98; O2SAT 96
== END 2023-01-16 00:37 | disposition home or self-care (01) ==
LOC: MED 20:35
DX: R07.9 Chest pain, unspecified (principal); J45.909 Unspecified asthma, uncomplicated; I13.10 Hypertensive heart and chronic kidney disease without heart failure, with stage 1 through stage 4 chronic kidney disease, or unspecified chronic kidney disease; E11.22 Type 2 diabetes mellitus with diabetic chronic kidney disease; N18.9 Chronic kidney disease, unspecified; J44.9 Chronic obstructive pulmonary disease, unspecified; Z88.5 Allergy status to narcotic agent; Z79.1 Long term (current) use of non-steroidal anti-inflammatories (NSAID); Z88.8 Allergy status to other drugs, medicaments and biological substances; Z79.4 Long term (current) use of insulin; Z79.899 Other long term (current) drug therapy
CPT/HCPCS: 36415; 71045; 80053; 83880; 84484; 85025; 93005; 96374; 96376; 99285; J2270; Q0092

== ENCOUNTER 2023-01-17 20:33 | Emergency (ER) | payer MEDICAID ==
[~2023-01-17] VITALS: Ht 172.7 cm; Wt 118.4 kg
[2023-01-17 20:40] VITALS: BP 150/90; PULSE 95; RESP 18; TEMP 98.2; O2SAT 96
== END 2023-01-17 22:49 | disposition left against medical advice (07) ==
LOC: MED 20:33
DX: R07.9 Chest pain, unspecified (principal); R06.02 Shortness of breath; Z53.21 Procedure and treatment not carried out due to patient leaving prior to being seen by health care provider
CPT/HCPCS: 93005; 99281

== ENCOUNTER 2023-01-24 04:30 | Inpatient (IN) | payer MEDICAID ==
[~2023-01-24] VITALS: Ht 172.7 cm; Wt 118.4 kg
[2023-01-24] VITALS (7 sets, daily range): BP systolic 142–174; BP diastolic 76–92; PULSE 81–101; RESP 17–22; TEMP 98–98.1; O2SAT 94–100
[2023-01-24] MEDS ORDERED: ENALAPRILAT 2.5 MG/2 ML VIAL IVP ONE (05:25)
[2023-01-24] MEDS ORDERED: FUROSEMIDE 40 MG/4 ML VIAL IVP ONE (05:25)
[2023-01-24] MEDS ORDERED: ASPIRIN 325 MG TAB PO ONE (05:25)
[2023-01-24] MEDS ORDERED: methylPREDNISolone SS 125 MG in WATER STERILE 2 ML IV ONE (05:35)
[2023-01-24] MEDS ORDERED: MAG SULF 2000 MG/WATER PREMIX 50 ML IV ONE (05:35)
[2023-01-24] MEDS ORDERED: AZITHROMYCIN 500 MG in DEXTROSE 5% 250 ML IV ONE (05:50)
[2023-01-24] MEDS ORDERED: MORPHINE SULFATE 4 MG/ML SYR IVP ONE (06:00)
[2023-01-24] MEDS ORDERED: ONDANSETRON 4 MG/2 ML VIAL IVP ONE ×2 (06:05→09:50)
[2023-01-24 06:33] LABS: BASOPHILS # (AUTO) 0.2 K/uL (0.00-0.22); EOSINOPHILS # (AUTO) 0.2 K/uL (0-0.4); EOSINOPHILS % (AUTO) 4.4 % (0.0-4.0); HEMATOCRIT 33.8 % (36-48); HEMOGLOBIN 10.6 g/dL (12.0-16.0); LYMPHOCYTES # (AUTO) 1.5 K/uL (2.5-16.5); LYMPHOCYTES % (AUTO) 28.1 % (20.5-51.1); MEAN CORPUSCULAR HEMOGLOBIN 24 pg (27-31); MEAN CORPUSCULAR HGB CONC 31 g/dL (33-37); MEAN CORPUSCULAR VOLUME 74.7 fL (80-94); MONOCYTES # (AUTO) 0.3 K/uL (0.8-1.0); MONOCYTES % (AUTO) 6.6 % (1.7-9.3); NEUTROPHILS # (AUTO) 2.9 K/uL (1.8-7.7); NEUTROPHILS % (AUTO) 56.9 % (42.2-75.2); PLATELET COUNT (AUTO) 256 K/uL (140-450); RED BLOOD CELL COUNT(AUTO) 4.52 MIL/uL (4.20-5.40); RED CELL DISTRIBUTION WIDTH 18.1 % (11.6-13.7); WHITE BLOOD COUNT (AUTO) 5.2 K/uL (4.8-10.8)
[2023-01-24 07:26] LABS: LACTIC ACID 1.4 mmol/L (0.4-2.0)
[2023-01-24 07:50] LABS: ALBUMIN 3.1 g/dL (3.4-5.0); ANION GAP 11.1 (8-16); CALCIUM 8.4 mg/dL (8.5-10.1); CARBON DIOXIDE 29.7 mmol/L (21-32); CREATININE 1.6 mg/dL (0.6-1.3); POTASSIUM 3.8 mmol/L (3.5-5.1); TOTAL BILIRUBIN 0.5 mg/dL (0.0-1.0); TOTAL PROTEIN, SERUM 7.9 g/dL (6.4-8.2)
[2023-01-24] MEDS ORDERED: AZITHROMYCIN 500 MG INJ VIAL IV ONE (07:54)
[2023-01-24] MEDS ORDERED: cefTRIAXone 1,000 MG VIAL ONE (07:54)
[2023-01-24] MEDS ORDERED: methylPREDNISolone SS 125 MG/2 ML VIAL IVP SCH (08:15)
[2023-01-24] MEDS ORDERED: NITROGLYCERIN 0.4 MG TAB SL PRN ×2 (08:30→10:35)
[2023-01-24 08:35] LABS: APPEARANCE,URINE CLEAR (CLEAR); BILIRUBIN,URINE NEGATIVE (NEGATIVE); BLOOD, URINE TRACE-I (NEGATIVE); COLOR,URINE YELLOW (YELLOW); LEUKOCYTE ESTERASE ,URINE NEGATIVE (NEGATIVE); NITRITE, URINE NEGATIVE (NEGATIVE); PROTEIN,URINE 2+ (NEGATIVE); UGLUCOSE 3+ (NEGATIVE)
[2023-01-24 08:55] LABS: RBC,URINE 0-5 /HPF (0-5); WBC,URINE 0-5 /HPF (0-5)
[2023-01-24 08:56] LABS: BACTERIA,URINE 0-2 /HPF (None Seen); SQUAMOUS EPITHELIAL CELL,UR 0-3 (FEW) /LPF (0-3 (FEW))
[2023-01-24 08:57] LABS: MUCUS,URINE None Seen /LPF (None Seen)
[2023-01-24] MEDS ORDERED: fentaNYL citrate 0.05 MG/ML VIAL IVP ONE (09:50)
[2023-01-24] MEDS ORDERED: POTASSIUM CHLORIDE 10 MEQ TABER PO PRN (10:30)
[2023-01-24] MEDS ORDERED: LORazepam 1 MG TAB PO PRN (10:30)
[2023-01-24] MEDS ORDERED: HYDROcodone/APAP 5/325 MG 1 TAB TAB PO PRN (10:30)
[2023-01-24] MEDS ORDERED: KCL 20 MEQ IN 100 mL PREMIX 200 ML IV PRN (10:30)
[2023-01-24] MEDS ORDERED: ACETAMINOPHEN 325 MG TAB PO PRN (10:30)
[2023-01-24] MEDS ORDERED: ZOLPIDEM 5 MG TAB PO PRN (10:30)
[2023-01-24] MEDS ORDERED: CLONIDINE HYDROCHLORIDE 0.1 MG TAB PO PRN (10:35)
[2023-01-24] MEDS ORDERED: DEXTROSE 50% 50 ML SYR IVP PRN (10:35)
[2023-01-24 11:03] LABS: BLOOD GAS PH 7.312 (7.35-7.45)
[2023-01-24 11:04] LABS: BLOOD GAS BASE EXCESS 3.1 mmol/L (-2.0-2.0); BLOOD GAS PCO2 62.1 mmHg (35-45)
[2023-01-24 11:05] LABS: BLOOD GAS O2 SAT% 90.8 % (92.0-98.5)
[2023-01-24 11:06] LABS: BLOOD GAS HCO3 30.7 mmol/L (22-26); BLOOD GAS PO2 67.1 mmHg (75-100)
[2023-01-24] MEDS: BLOOD GLUCOSE MONITORING 1 DEV DEV FS SCH ×3 (11:31→20:35)
[2023-01-24] MEDS: INSULIN LISPRO SLIDING SCALE 100 UNITS/ML VIAL SUBQ PRN ×3 (11:39→20:37)
[2023-01-24] MEDS ORDERED: ALBUTEROL SULFATE/IPRATROPIU 3 ML SOL IH SCH (13:00)
[2023-01-24] MEDS: FUROSEMIDE 40 MG/4 ML VIAL IVP SCH ×2 (13:30→20:49)
[2023-01-24] MEDS: hydrALAZINE 25 MG TAB PO SCH ×2 (13:31→17:11)
[2023-01-24] MEDS: ALBUTEROL SULFATE/IPRATROPIU 3 ML SOL IH SCH ×2 (13:56→19:43)
[2023-01-24] MEDS: BUDESONIDE 0.5 MG/2 ML NEBU INH SCH (19:44)
[2023-01-24] MEDS: INSULIN LANTUS 100 UNITS/ML 10 ML VIAL SUBQ SCH (20:39)
[2023-01-24] MEDS: carvediloL 12.5 MG TAB PO SCH (20:50)
[2023-01-24] MEDS: APIXABAN 2.5 MG TAB PO SCH (20:51)
[2023-01-24] MEDS: ATORVASTATIN 20 MG TAB PO SCH (20:52)
[2023-01-24] MEDS: MORPHINE SULFATE 4 MG/ML SYR IVP PRN (20:54)
[2023-01-25] VITALS (14 sets, daily range): BP systolic 95–156; BP diastolic 56–94; PULSE 58–84; RESP 12–20; TEMP 97–97.8; O2SAT 97–100
[2023-01-25] MEDS: ALBUTEROL SULFATE/IPRATROPIU 3 ML SOL IH SCH ×4 (02:13→19:37)
[2023-01-25] MEDS: FUROSEMIDE 40 MG/4 ML VIAL IVP SCH ×2 (05:49→13:00)
[2023-01-25 06:25] LABS: BASOPHILS % (AUTO) 0.3 % (0.0-2.0); HEMATOCRIT 32.5 % (36-48); HEMOGLOBIN 10.2 g/dL (12.0-16.0); LYMPHOCYTES # (AUTO) 0.6 K/uL (2.5-16.5); LYMPHOCYTES % (AUTO) 7.4 % (20.5-51.1); MEAN CORPUSCULAR HEMOGLOBIN 23 pg (27-31); MEAN CORPUSCULAR HGB CONC 32 g/dL (33-37); MEAN CORPUSCULAR VOLUME 74.4 fL (80-94); MONOCYTES # (AUTO) 0.4 K/uL (0.8-1.0); MONOCYTES % (AUTO) 4.5 % (1.7-9.3); NEUTROPHILS # (AUTO) 7.4 K/uL (1.8-7.7); NEUTROPHILS % (AUTO) 87.8 % (42.2-75.2); PLATELET COUNT (AUTO) 255 K/uL (140-450); RED BLOOD CELL COUNT(AUTO) 4.36 MIL/uL (4.20-5.40); RED CELL DISTRIBUTION WIDTH 18.3 % (11.6-13.7); WHITE BLOOD COUNT (AUTO) 8.5 K/uL (4.8-10.8)
[2023-01-25 06:46] LABS: ANION GAP 11.2 (8-16); CALCIUM 8.2 mg/dL (8.5-10.1); CARBON DIOXIDE 31.8 mmol/L (21-32); CREATININE 1.8 mg/dL (0.6-1.3)
[2023-01-25] MEDS: BLOOD GLUCOSE MONITORING 1 DEV DEV FS SCH ×4 (07:15→20:43)
[2023-01-25] MEDS: BUDESONIDE 0.5 MG/2 ML NEBU INH SCH ×2 (07:16→19:38)
[2023-01-25] MEDS: INSULIN LISPRO SLIDING SCALE 100 UNITS/ML VIAL SUBQ PRN ×4 (07:18→20:41)
[2023-01-25] MEDS ORDERED: AZITHROMYCIN 250 MG TAB PO SCH (09:00)
[2023-01-25] MEDS: SPIRONOLACTONE 25 MG TAB PO SCH (10:23)
[2023-01-25] MEDS: ASPIRIN 81 MG TAB.CHEW PO SCH (10:23)
[2023-01-25] MEDS: lisinopriL 5 MG TAB PO SCH (10:25)
[2023-01-25] MEDS: hydrALAZINE 25 MG TAB PO SCH ×3 (10:25→17:45)
[2023-01-25] MEDS: APIXABAN 2.5 MG TAB PO SCH ×2 (10:27→20:40)
[2023-01-25] MEDS: AZITHROMYCIN 500 MG in DEXTROSE 5% 250 ML IV SCH (10:28)
[2023-01-25] MEDS: carvediloL 12.5 MG TAB PO SCH ×2 (10:29→20:38)
[2023-01-25] MEDS: MORPHINE SULFATE 4 MG/ML SYR IVP PRN ×2 (10:31→18:42)
[2023-01-25] MEDS: ONDANSETRON 4 MG/2 ML VIAL IVP PRN (12:22)
[2023-01-25] MEDS: BUMETANIDE 1 MG/4 ML VIAL IV SCH (18:07)
[2023-01-25] MEDS: ATORVASTATIN 20 MG TAB PO SCH (20:39)
[2023-01-25] MEDS: INSULIN LANTUS 100 UNITS/ML 10 ML VIAL SUBQ SCH (20:47)
[2023-01-26] VITALS (11 sets, daily range): BP systolic 111–154; BP diastolic 60–110; PULSE 62–86; RESP 12–20; TEMP 97–98.3; O2SAT 97–100
[2023-01-26] MEDS: ALBUTEROL SULFATE/IPRATROPIU 3 ML SOL IH SCH ×4 (00:04→19:30)
[2023-01-26] MEDS: MORPHINE SULFATE 4 MG/ML SYR IVP PRN ×4 (00:40→21:50)
[2023-01-26] MEDS: BLOOD GLUCOSE MONITORING 1 DEV DEV FS SCH ×4 (06:34→20:10)
[2023-01-26] MEDS: INSULIN LISPRO SLIDING SCALE 100 UNITS/ML VIAL SUBQ PRN ×3 (06:36→20:19)
[2023-01-26 07:06] LABS: ANION GAP 7.7 (8-16); CALCIUM 8.4 mg/dL (8.5-10.1); CARBON DIOXIDE 34.9 mmol/L (21-32); POTASSIUM 4.6 mmol/L (3.5-5.1)
[2023-01-26 07:09] LABS: BASOPHILS # (AUTO) 0.1 K/uL (0.00-0.22); EOSINOPHILS # (AUTO) 0.1 K/uL (0-0.4); EOSINOPHILS % (AUTO) 1.5 % (0.0-4.0); HEMATOCRIT 33.7 % (36-48); HEMOGLOBIN 10.5 g/dL (12.0-16.0); LYMPHOCYTES # (AUTO) 1.6 K/uL (2.5-16.5); LYMPHOCYTES % (AUTO) 25.7 % (20.5-51.1); MEAN CORPUSCULAR HEMOGLOBIN 23 pg (27-31); MEAN CORPUSCULAR HGB CONC 31 g/dL (33-37); MEAN CORPUSCULAR VOLUME 74.9 fL (80-94); MONOCYTES # (AUTO) 0.4 K/uL (0.8-1.0); MONOCYTES % (AUTO) 5.8 % (1.7-9.3); NEUTROPHILS # (AUTO) 4.2 K/uL (1.8-7.7); PLATELET COUNT (AUTO) 288 K/uL (140-450); RED CELL DISTRIBUTION WIDTH 18.1 % (11.6-13.7); WHITE BLOOD COUNT (AUTO) 6.3 K/uL (4.8-10.8)
[2023-01-26] MEDS: BUDESONIDE 0.5 MG/2 ML NEBU INH SCH ×2 (07:30→19:58)
[2023-01-26] MEDS: ASPIRIN 81 MG TAB.CHEW PO SCH (08:53)
[2023-01-26] MEDS: hydrALAZINE 25 MG TAB PO SCH ×3 (08:53→17:52)
[2023-01-26] MEDS: SPIRONOLACTONE 25 MG TAB PO SCH (08:54)
[2023-01-26] MEDS: APIXABAN 2.5 MG TAB PO SCH ×2 (08:55→20:18)
[2023-01-26] MEDS: lisinopriL 5 MG TAB PO SCH (08:59)
[2023-01-26] MEDS: carvediloL 12.5 MG TAB PO SCH ×2 (08:59→20:11)
[2023-01-26] MEDS: BUMETANIDE 1 MG/4 ML VIAL IV SCH ×2 (09:00→17:51)
[2023-01-26] MEDS: AZITHROMYCIN 500 MG in DEXTROSE 5% 250 ML IV SCH (09:00)
[2023-01-26] MEDS: ONDANSETRON 4 MG/2 ML VIAL IVP PRN (10:51)
[2023-01-26] MEDS: DOXYCYCLINE 100 MG CAP PO SCH ×2 (16:08→20:11)
[2023-01-26] MEDS: ATORVASTATIN 20 MG TAB PO SCH (20:11)
[2023-01-26] MEDS: INSULIN LANTUS 100 UNITS/ML 10 ML VIAL SUBQ SCH (20:20)
[2023-01-27] VITALS (11 sets, daily range): BP systolic 120–150; BP diastolic 61–89; PULSE 73–108; RESP 16–20; TEMP 97–98.3; O2SAT 92–100
[2023-01-27] MEDS: ALBUTEROL SULFATE/IPRATROPIU 3 ML SOL IH SCH ×4 (01:00→19:11)
[2023-01-27 06:06] LABS: BASOPHILS # (AUTO) 0.1 K/uL (0.00-0.22); BASOPHILS % (AUTO) 1.3 % (0.0-2.0); EOSINOPHILS # (AUTO) 0.2 K/uL (0-0.4); EOSINOPHILS % (AUTO) 4.2 % (0.0-4.0); HEMATOCRIT 35.4 % (36-48); HEMOGLOBIN 10.9 g/dL (12.0-16.0); LYMPHOCYTES # (AUTO) 1.2 K/uL (2.5-16.5); LYMPHOCYTES % (AUTO) 21.3 % (20.5-51.1); MEAN CORPUSCULAR HEMOGLOBIN 23 pg (27-31); MEAN CORPUSCULAR HGB CONC 31 g/dL (33-37); MEAN CORPUSCULAR VOLUME 75.4 fL (80-94); MONOCYTES # (AUTO) 0.6 K/uL (0.8-1.0); MONOCYTES % (AUTO) 10.5 % (1.7-9.3); NEUTROPHILS # (AUTO) 3.6 K/uL (1.8-7.7); NEUTROPHILS % (AUTO) 62.7 % (42.2-75.2); PLATELET COUNT (AUTO) 276 K/uL (140-450); RED CELL DISTRIBUTION WIDTH 18.8 % (11.6-13.7); WHITE BLOOD COUNT (AUTO) 5.7 K/uL (4.8-10.8)
[2023-01-27] MEDS: BLOOD GLUCOSE MONITORING 1 DEV DEV FS SCH ×4 (06:37→20:34)
[2023-01-27] MEDS: BUDESONIDE 0.5 MG/2 ML NEBU INH SCH ×2 (07:15→19:20)
[2023-01-27] MEDS: DOXYCYCLINE 100 MG CAP PO SCH ×2 (08:11→20:16)
[2023-01-27] MEDS: SPIRONOLACTONE 25 MG TAB PO SCH (08:11)
[2023-01-27] MEDS: lisinopriL 5 MG TAB PO SCH (08:12)
[2023-01-27] MEDS: carvediloL 12.5 MG TAB PO SCH ×2 (08:12→20:15)
[2023-01-27] MEDS: BUMETANIDE 1 MG/4 ML VIAL IV SCH (08:12)
[2023-01-27] MEDS: ASPIRIN 81 MG TAB.CHEW PO SCH (08:12)
[2023-01-27] MEDS: hydrALAZINE 25 MG TAB PO SCH ×3 (08:13→17:51)
[2023-01-27 08:16] LABS: ANION GAP 21.3 (8-16); CALCIUM 8.7 mg/dL (8.5-10.1); CARBON DIOXIDE 23.3 mmol/L (21-32); CREATININE 2.1 mg/dL (0.6-1.3); POTASSIUM 5.6 mmol/L (3.5-5.1)
[2023-01-27] MEDS: APIXABAN 2.5 MG TAB PO SCH ×2 (08:20→20:18)
[2023-01-27] MEDS ORDERED: SODIUM ZIRCONIUM CYCLOSILICATE 10 GM POWD.PACK PO SCH (10:45)
[2023-01-27] MEDS: SODIUM ZIRCONIUM CYCLOSILICATE 10 GM POWD.PACK PO SCH ×3 (11:29→20:15)
[2023-01-27] MEDS: MORPHINE SULFATE 4 MG/ML SYR IVP PRN ×2 (11:29→20:30)
[2023-01-27] MEDS: INSULIN LISPRO SLIDING SCALE 100 UNITS/ML VIAL SUBQ PRN ×3 (12:51→20:34)
[2023-01-27] MEDS: BUMETANIDE 1 MG TAB PO SCH (17:51)
[2023-01-27] MEDS: ATORVASTATIN 20 MG TAB PO SCH (20:15)
[2023-01-27] MEDS: INSULIN LANTUS 100 UNITS/ML 10 ML VIAL SUBQ SCH (20:20)
[2023-01-28] VITALS (11 sets, daily range): BP systolic 125–158; BP diastolic 60–84; PULSE 73–92; RESP 16–20; TEMP 97.6–98.4; O2SAT 97–100
[2023-01-28] MEDS: ALBUTEROL SULFATE/IPRATROPIU 3 ML SOL IH SCH ×4 (01:00→20:03)
[2023-01-28] MEDS: BLOOD GLUCOSE MONITORING 1 DEV DEV FS SCH ×4 (06:45→20:17)
[2023-01-28 07:03] LABS: BASOPHILS # (AUTO) 0.1 K/uL (0.00-0.22); BASOPHILS % (AUTO) 1.3 % (0.0-2.0); EOSINOPHILS # (AUTO) 0.3 K/uL (0-0.4); EOSINOPHILS % (AUTO) 5.2 % (0.0-4.0); HEMATOCRIT 34.9 % (36-48); HEMOGLOBIN 10.8 g/dL (12.0-16.0); LYMPHOCYTES % (AUTO) 17.8 % (20.5-51.1); MEAN CORPUSCULAR HEMOGLOBIN 23 pg (27-31); MEAN CORPUSCULAR HGB CONC 31 g/dL (33-37); MEAN CORPUSCULAR VOLUME 74.6 fL (80-94); MONOCYTES # (AUTO) 0.5 K/uL (0.8-1.0); MONOCYTES % (AUTO) 8.8 % (1.7-9.3); NEUTROPHILS # (AUTO) 3.7 K/uL (1.8-7.7); NEUTROPHILS % (AUTO) 66.9 % (42.2-75.2); PLATELET COUNT (AUTO) 293 K/uL (140-450); RED BLOOD CELL COUNT(AUTO) 4.68 MIL/uL (4.20-5.40); WHITE BLOOD COUNT (AUTO) 5.6 K/uL (4.8-10.8)
[2023-01-28 07:11] LABS: ANION GAP 5.2 (8-16); CALCIUM 8.6 mg/dL (8.5-10.1); CARBON DIOXIDE 38.1 mmol/L (21-32); CREATININE 1.6 mg/dL (0.6-1.3); POTASSIUM 4.3 mmol/L (3.5-5.1)
[2023-01-28] MEDS: BUDESONIDE 0.5 MG/2 ML NEBU INH SCH ×2 (07:19→20:03)
[2023-01-28] MEDS: ASPIRIN 81 MG TAB.CHEW PO SCH (08:43)
[2023-01-28] MEDS: hydrALAZINE 25 MG TAB PO SCH ×3 (08:44→16:43)
[2023-01-28] MEDS: carvediloL 12.5 MG TAB PO SCH ×2 (08:44→20:23)
[2023-01-28] MEDS: DOXYCYCLINE 100 MG CAP PO SCH ×2 (08:44→20:24)
[2023-01-28] MEDS: lisinopriL 5 MG TAB PO SCH (08:45)
[2023-01-28] MEDS: BUMETANIDE 1 MG TAB PO SCH ×3 (08:45→16:44)
[2023-01-28] MEDS: MAG SULF 2000 MG/WATER PREMIX 50 ML IV PRN (08:46)
[2023-01-28] MEDS: APIXABAN 2.5 MG TAB PO SCH ×2 (08:46→20:19)
[2023-01-28] MEDS: MORPHINE SULFATE 4 MG/ML SYR IVP PRN ×3 (08:49→22:54)
[2023-01-28] MEDS ORDERED: MAG SULF 2000 MG/WATER PREMIX 50 ML IV SCH ×2 (11:00)
[2023-01-28] MEDS: INSULIN LISPRO SLIDING SCALE 100 UNITS/ML VIAL SUBQ PRN ×3 (12:48→20:21)
[2023-01-28] MEDS ORDERED: LISI5TAB24 PO (16:06)
[2023-01-28] MEDS ORDERED: HYDR-4420 PO (16:06)
[2023-01-28] MEDS ORDERED: SPIR25TA PO (16:06)
[2023-01-28] MEDS: INSULIN LANTUS 100 UNITS/ML 10 ML VIAL SUBQ SCH (20:22)
[2023-01-28] MEDS: ATORVASTATIN 20 MG TAB PO SCH (20:24)
[2023-01-29] VITALS (8 sets, daily range): BP systolic 117–163; BP diastolic 70–90; PULSE 73–81; RESP 14–19; TEMP 97.6; O2SAT 97–100
[2023-01-29] MEDS: ALBUTEROL SULFATE/IPRATROPIU 3 ML SOL IH SCH ×2 (01:00→07:34)
[2023-01-29] MEDS: BLOOD GLUCOSE MONITORING 1 DEV DEV FS SCH ×2 (06:35→11:11)
[2023-01-29 06:40] LABS: BASOPHILS # (AUTO) 0.1 K/uL (0.00-0.22); BASOPHILS % (AUTO) 1.3 % (0.0-2.0); EOSINOPHILS # (AUTO) 0.3 K/uL (0-0.4); EOSINOPHILS % (AUTO) 5.6 % (0.0-4.0); HEMATOCRIT 35.9 % (36-48); HEMOGLOBIN 11.2 g/dL (12.0-16.0); LYMPHOCYTES # (AUTO) 0.9 K/uL (2.5-16.5); LYMPHOCYTES % (AUTO) 19.3 % (20.5-51.1); MEAN CORPUSCULAR HEMOGLOBIN 23 pg (27-31); MEAN CORPUSCULAR HGB CONC 31 g/dL (33-37); MEAN CORPUSCULAR VOLUME 73.7 fL (80-94); MONOCYTES # (AUTO) 0.6 K/uL (0.8-1.0); MONOCYTES % (AUTO) 11.3 % (1.7-9.3); NEUTROPHILS # (AUTO) 3.1 K/uL (1.8-7.7); NEUTROPHILS % (AUTO) 62.5 % (42.2-75.2); PLATELET COUNT (AUTO) 270 K/uL (140-450); RED BLOOD CELL COUNT(AUTO) 4.87 MIL/uL (4.20-5.40); RED CELL DISTRIBUTION WIDTH 18.3 % (11.6-13.7); WHITE BLOOD COUNT (AUTO) 4.9 K/uL (4.8-10.8)
[2023-01-29 06:55] LABS: ANION GAP 4.6 (8-16); CALCIUM 9.1 mg/dL (8.5-10.1); CREATININE 1.5 mg/dL (0.6-1.3); POTASSIUM 3.7 mmol/L (3.5-5.1)
[2023-01-29 07:10] LABS: CARBON DIOXIDE 41.1 mmol/L (21-32)
[2023-01-29] MEDS: BUDESONIDE 0.5 MG/2 ML NEBU INH SCH (07:35)
[2023-01-29] MEDS: BUMETANIDE 1 MG TAB PO SCH (08:05)
[2023-01-29] MEDS: lisinopriL 5 MG TAB PO SCH (08:05)
[2023-01-29] MEDS: ASPIRIN 81 MG TAB.CHEW PO SCH (08:05)
[2023-01-29] MEDS: hydrALAZINE 25 MG TAB PO SCH (08:06)
[2023-01-29] MEDS: carvediloL 12.5 MG TAB PO SCH (08:06)
[2023-01-29] MEDS: DOXYCYCLINE 100 MG CAP PO SCH (08:06)
[2023-01-29] MEDS: MORPHINE SULFATE 4 MG/ML SYR IVP PRN (08:07)
[2023-01-29] MEDS: APIXABAN 2.5 MG TAB PO SCH (08:11)
[2023-01-29] MEDS: MAG SULF 2000 MG/WATER PREMIX 50 ML IV PRN (08:14)
[2023-01-29] MEDS ORDERED: SPIRONOLACTONE 25 MG TAB PO SCH (09:00)
[2023-01-29] MEDS ORDERED: ACETAZOLAMIDE SOD 250 MG TAB PO SCH (09:45)
[2023-01-29] MEDS: INSULIN LISPRO SLIDING SCALE 100 UNITS/ML VIAL SUBQ PRN (11:26)
[2023-01-29] MEDS ORDERED: BUMETANIDE 1 MG TAB PO SCH (21:00)
== END 2023-01-29 12:40 | disposition home or self-care (01) | DRG 194 ==
LOC: MED 04:30 → MTU 10:32 → OBSVTOIN 01-25 16:08
PROVIDERS: ADMIT Internal Medicine; ATTEND Internal Medicine
DX: I13.0 Hypertensive heart and chronic kidney disease with heart failure and stage 1 through stage 4 chronic kidney disease, or unspecified chronic kidney disease (principal); J96.20 Acute and chronic respiratory failure, unspecified whether with hypoxia or hypercapnia; I21.A1 Myocardial infarction type 2; E44.0 Moderate protein-calorie malnutrition; E66.2 Morbid (severe) obesity with alveolar hypoventilation; J44.1 Chronic obstructive pulmonary disease with (acute) exacerbation; I48.0 Paroxysmal atrial fibrillation; N17.9 Acute kidney failure, unspecified; I50.23 Acute on chronic systolic (congestive) heart failure; I48.91 Unspecified atrial fibrillation; I25.10 Atherosclerotic heart disease of native coronary artery without angina pectoris; N18.9 Chronic kidney disease, unspecified; E11.65 Type 2 diabetes mellitus with hyperglycemia; E87.5 Hyperkalemia; I44.7 Left bundle-branch block, unspecified; E11.22 Type 2 diabetes mellitus with diabetic chronic kidney disease; I25.5 Ischemic cardiomyopathy; Z88.1 Allergy status to other antibiotic agents; Z88.8 Allergy status to other drugs, medicaments and biological substances; Z79.899 Other long term (current) drug therapy; Z83.3 Family history of diabetes mellitus; Z82.5 Family history of asthma and other chronic lower respiratory diseases; Z68.39 Body mass index [BMI] 39.0-39.9, adult
CPT/HCPCS: G0378 ×14; 36415; 36600; 71045; 80048; 80053; 81001; 82803; 82948; 83605; 83735; 83880; 84484; 85025; 87040; 87081; 93005; 94640; J0456; J0696; J1815; J1940; J2270; J2405; J2930; J3010; J3475; J3490; J7060; J7626

== ENCOUNTER 2023-02-10 12:06 | Observation (INO) | payer MEDICAID ==
[~2023-02-10] VITALS: Ht 172.7 cm; Wt 117.9 kg
[~2023-02-10 12:06] MED LIST changes: -HYDR-3233 PO; +HYDR-4420 PO; -OXYC5TAB4 PO
[2023-02-10 12:10] VITALS: BP 162/105; PULSE 124; RESP 17; TEMP 97.8; O2SAT 94
[2023-02-10 13:20] LABS: BASOPHILS # (AUTO) 0.1 K/uL (0.00-0.22); BASOPHILS % (AUTO) 1.6 % (0.0-2.0); EOSINOPHILS # (AUTO) 0.1 K/uL (0-0.4); EOSINOPHILS % (AUTO) 2.5 % (0.0-4.0); HEMATOCRIT 33.8 % (36-48); HEMOGLOBIN 10.5 g/dL (12.0-16.0); LYMPHOCYTES # (AUTO) 1.5 K/uL (2.5-16.5); LYMPHOCYTES % (AUTO) 27.2 % (20.5-51.1); MEAN CORPUSCULAR HEMOGLOBIN 23 pg (27-31); MEAN CORPUSCULAR HGB CONC 31 g/dL (33-37); MEAN CORPUSCULAR VOLUME 74.4 fL (80-94); MONOCYTES # (AUTO) 0.4 K/uL (0.8-1.0); MONOCYTES % (AUTO) 7.3 % (1.7-9.3); NEUTROPHILS # (AUTO) 3.4 K/uL (1.8-7.7); NEUTROPHILS % (AUTO) 61.4 % (42.2-75.2); PLATELET COUNT (AUTO) 192 K/uL (140-450); RED BLOOD CELL COUNT(AUTO) 4.54 MIL/uL (4.20-5.40); RED CELL DISTRIBUTION WIDTH 18.9 % (11.6-13.7); WHITE BLOOD COUNT (AUTO) 5.5 K/uL (4.8-10.8)
[2023-02-10 13:33] VITALS: O2SAT 94
[2023-02-10 14:11] LABS: ALBUMIN 2.8 g/dL (3.4-5.0); ANION GAP 12.1 (8-16); CALCIUM 8.4 mg/dL (8.5-10.1); CARBON DIOXIDE 29.1 mmol/L (21-32); CREATININE 1.6 mg/dL (0.6-1.3); POTASSIUM 4.2 mmol/L (3.5-5.1); TOTAL BILIRUBIN 0.4 mg/dL (0.0-1.0); TOTAL PROTEIN, SERUM 7.2 g/dL (6.4-8.2)
[2023-02-10] MEDS ORDERED: ASPIRIN 325 MG TAB PO ONE (15:10)
[2023-02-10 15:42] VITALS: O2SAT 94
[2023-02-10] MEDS ORDERED: MORPHINE SULFATE 4 MG/ML SYR IVP ONE (17:55)
[2023-02-10] MEDS ORDERED: HYDROcodone/APAP 5/325 MG 1 TAB TAB PO PRN (18:15)
[2023-02-10] MEDS ORDERED: POTASSIUM CHLORIDE 10 MEQ TABER PO PRN (18:15)
[2023-02-10] MEDS ORDERED: MAGNESIUM OXIDE 400 MG TAB PO PRN (18:15)
[2023-02-10] MEDS ORDERED: ONDANSETRON 4 MG/2 ML VIAL IVP ONE (18:15)
[2023-02-10] MEDS ORDERED: ACETAMINOPHEN 325 MG TAB PO PRN (18:15)
[2023-02-10] MEDS ORDERED: ONDANSETRON 4 MG/2 ML VIAL IVP PRN (18:15)
[2023-02-10] MEDS ORDERED: hydrALAZINE 20 MG/ML VIAL IVP PRN (18:20)
[2023-02-10] MEDS: NIFEdipine 30 MG TABER PO SCH (18:58)
[2023-02-10] MEDS: FUROSEMIDE 100 MG/10 ML VIAL IVP SCH (21:21)
[2023-02-10] MEDS: MORPHINE SULFATE 4 MG/ML SYR IVP PRN (23:57)
[2023-02-11 07:40] LABS: BASOPHILS # (AUTO) 0.1 K/uL (0.00-0.22); EOSINOPHILS # (AUTO) 0.2 K/uL (0-0.4); EOSINOPHILS % (AUTO) 4.2 % (0.0-4.0); HEMATOCRIT 35.7 % (36-48); HEMOGLOBIN 11.2 g/dL (12.0-16.0); LYMPHOCYTES # (AUTO) 1.3 K/uL (2.5-16.5); LYMPHOCYTES % (AUTO) 26.1 % (20.5-51.1); MEAN CORPUSCULAR HEMOGLOBIN 23 pg (27-31); MEAN CORPUSCULAR HGB CONC 31 g/dL (33-37); MEAN CORPUSCULAR VOLUME 74.5 fL (80-94); MONOCYTES # (AUTO) 0.4 K/uL (0.8-1.0); MONOCYTES % (AUTO) 7.7 % (1.7-9.3); NEUTROPHILS # (AUTO) 3.1 K/uL (1.8-7.7); PLATELET COUNT (AUTO) 194 K/uL (140-450); WHITE BLOOD COUNT (AUTO) 5.1 K/uL (4.8-10.8)
[2023-02-11 08:44] LABS: ANION GAP 8.1 (8-16); CALCIUM 8.8 mg/dL (8.5-10.1); CREATININE 1.5 mg/dL (0.6-1.3); POTASSIUM 4.1 mmol/L (3.5-5.1)
[2023-02-11 09:11] VITALS: PULSE 78; RESP 20; O2SAT 100
[2023-02-11] MEDS: NIFEdipine 30 MG TABER PO SCH (10:32)
[2023-02-11] MEDS: FUROSEMIDE 100 MG/10 ML VIAL IVP SCH ×2 (10:36→21:07)
[2023-02-11 12:00] VITALS: BP 156/80; PULSE 80; PULSE 81; RESP 18; TEMP 97.1; O2SAT 100
[2023-02-11] MEDS: MORPHINE SULFATE 4 MG/ML SYR IVP PRN ×2 (13:18→18:55)
[2023-02-11 16:00] VITALS: BP 161/87; PULSE 77; RESP 18; TEMP 97.1; O2SAT 99
[2023-02-11 20:00] VITALS: BP 159/96; PULSE 82; PULSE 84; PULSE 97; RESP 18; RESP 20; TEMP 98.6; O2SAT 97; O2SAT 99
[2023-02-12] VITALS: BP 141/89; PULSE 91; RESP 18; TEMP 98.4; O2SAT 97
[2023-02-12 00:02] VITALS: PULSE 85
[2023-02-12] MEDS: MORPHINE SULFATE 4 MG/ML SYR IVP PRN ×3 (01:01→16:14)
[2023-02-12 04:00] VITALS: BP 143/86; PULSE 94; PULSE 98; RESP 18; TEMP 98; O2SAT 97
[2023-02-12 07:02] LABS: BASOPHILS # (AUTO) 0.1 K/uL (0.00-0.22); BASOPHILS % (AUTO) 1.4 % (0.0-2.0); EOSINOPHILS # (AUTO) 0.2 K/uL (0-0.4); EOSINOPHILS % (AUTO) 4.8 % (0.0-4.0); HEMATOCRIT 37.2 % (36-48); HEMOGLOBIN 11.8 g/dL (12.0-16.0); LYMPHOCYTES # (AUTO) 0.9 K/uL (2.5-16.5); LYMPHOCYTES % (AUTO) 17.6 % (20.5-51.1); MEAN CORPUSCULAR HEMOGLOBIN 24 pg (27-31); MEAN CORPUSCULAR HGB CONC 32 g/dL (33-37); MEAN CORPUSCULAR VOLUME 74.4 fL (80-94); MONOCYTES # (AUTO) 0.3 K/uL (0.8-1.0); MONOCYTES % (AUTO) 6.7 % (1.7-9.3); NEUTROPHILS # (AUTO) 3.3 K/uL (1.8-7.7); NEUTROPHILS % (AUTO) 69.5 % (42.2-75.2); PLATELET COUNT (AUTO) 209 K/uL (140-450); RED BLOOD CELL COUNT(AUTO) 5.01 MIL/uL (4.20-5.40); RED CELL DISTRIBUTION WIDTH 19.1 % (11.6-13.7); WHITE BLOOD COUNT (AUTO) 4.8 K/uL (4.8-10.8)
[2023-02-12 07:12] LABS: ANION GAP 9.9 (8-16); CARBON DIOXIDE 35.9 mmol/L (21-32); CREATININE 1.5 mg/dL (0.6-1.3); POTASSIUM 3.8 mmol/L (3.5-5.1)
[2023-02-12 08:00] VITALS: BP 131/90; PULSE 85; PULSE 89; PULSE 97; RESP 18; RESP 20; TEMP 97; O2SAT 97; O2SAT 98
[2023-02-12] MEDS: FUROSEMIDE 100 MG/10 ML VIAL IVP SCH (08:33)
[2023-02-12] MEDS: NIFEdipine 30 MG TABER PO SCH (08:36)
[2023-02-12 12:00] VITALS: BP 154/98; PULSE 82; PULSE 92; RESP 18; TEMP 97.6; O2SAT 98
[2023-02-12 16:00] VITALS: BP 138/80; PULSE 82; PULSE 98; RESP 18; TEMP 98.2; O2SAT 98
== END 2023-02-12 17:00 | disposition home or self-care (01) ==
LOC: MED 12:06 → MMU 18:16 → MTU 02-11 05:02
PROVIDERS: ADMIT Student in an Organized Health Care Education/Training Program; ATTEND Student in an Organized Health Care Education/Training Program
DX: I11.0 Hypertensive heart disease with heart failure (principal); I50.23 Acute on chronic systolic (congestive) heart failure; J81.1 Chronic pulmonary edema; J96.01 Acute respiratory failure with hypoxia; I21.A1 Myocardial infarction type 2; E11.9 Type 2 diabetes mellitus without complications; J44.9 Chronic obstructive pulmonary disease, unspecified; Z79.899 Other long term (current) drug therapy
CPT/HCPCS: 36415; 71045; 80048; 80053; 83880; 84484; 85025; 87081; 93005; 96372; 96374; 96375; 96376; 99284; G0378; J0360; J1644; J1940; J2270; J2405; Q0092

== ENCOUNTER 2023-02-19 19:15 | Inpatient (IN) | payer MEDICAID ==
[~2023-02-19] VITALS: Ht 172.7 cm; Wt 117.9 kg
[2023-02-19 19:30] VITALS: BP 158/92; PULSE 16; RESP 16; TEMP 98.2; O2SAT 98
[2023-02-19 20:43] LABS: BASOPHILS # (AUTO) 0.1 K/uL (0.00-0.22); BASOPHILS % (AUTO) 2.6 % (0.0-2.0); EOSINOPHILS # (AUTO) 0.1 K/uL (0-0.4); EOSINOPHILS % (AUTO) 2.5 % (0.0-4.0); HEMATOCRIT 34.1 % (36-48); HEMOGLOBIN 10.5 g/dL (12.0-16.0); LYMPHOCYTES # (AUTO) 1.4 K/uL (2.5-16.5); LYMPHOCYTES % (AUTO) 24.3 % (20.5-51.1); MEAN CORPUSCULAR HEMOGLOBIN 23 pg (27-31); MEAN CORPUSCULAR HGB CONC 31 g/dL (33-37); MEAN CORPUSCULAR VOLUME 73.9 fL (80-94); MONOCYTES # (AUTO) 0.3 K/uL (0.8-1.0); MONOCYTES % (AUTO) 5.5 % (1.7-9.3); NEUTROPHILS # (AUTO) 3.8 K/uL (1.8-7.7); NEUTROPHILS % (AUTO) 65.1 % (42.2-75.2); PLATELET COUNT (AUTO) 222 K/uL (140-450); RED BLOOD CELL COUNT(AUTO) 4.61 MIL/uL (4.20-5.40); RED CELL DISTRIBUTION WIDTH 18.9 % (11.6-13.7); WHITE BLOOD COUNT (AUTO) 5.8 K/uL (4.8-10.8)
[2023-02-19] MEDS ORDERED: ASPIRIN 325 MG TAB PO ONE (21:10)
[2023-02-19 21:17] LABS: ALBUMIN 2.7 g/dL (3.4-5.0); CALCIUM 8.3 mg/dL (8.5-10.1); CARBON DIOXIDE 26.9 mmol/L (21-32); CREATININE 1.5 mg/dL (0.6-1.3); POTASSIUM 3.9 mmol/L (3.5-5.1); TOTAL BILIRUBIN 0.3 mg/dL (0.0-1.0); TOTAL PROTEIN, SERUM 7.2 g/dL (6.4-8.2)
[2023-02-19] MEDS ORDERED: INSULIN REGULAR, HUMAN 100 UNIT/ML VIAL SUBQ ONE (21:20)
[2023-02-19] MEDS ORDERED: MORPHINE SULFATE 4 MG/ML SYR IVP ONE (23:05)
[2023-02-19] MEDS ORDERED: ACETAMINOPHEN 325 MG TAB PO PRN (23:25)
[2023-02-19] MEDS ORDERED: MAG SULF 2000 MG/WATER PREMIX 50 ML IV PRN (23:25)
[2023-02-19] MEDS ORDERED: HYDROcodone/APAP 5/325 MG 1 TAB TAB PO PRN (23:25)
[2023-02-19] MEDS ORDERED: ONDANSETRON 4 MG/2 ML VIAL IVP PRN (23:25)
[2023-02-19] MEDS ORDERED: MORPHINE SULFATE 4 MG/ML SYR IVP PRN (23:25)
[2023-02-19] MEDS ORDERED: POTASSIUM CHLORIDE 10 MEQ TABER PO PRN (23:25)
[2023-02-19] MEDS ORDERED: KCL 20 MEQ IN 100 mL PREMIX 200 ML IV PRN (23:25)
[2023-02-20 04:05] LABS: BASOPHILS # (AUTO) 0.1 K/uL (0.00-0.22); BASOPHILS % (AUTO) 0.9 % (0.0-2.0); EOSINOPHILS # (AUTO) 0.2 K/uL (0-0.4); EOSINOPHILS % (AUTO) 3.6 % (0.0-4.0); HEMATOCRIT 35.3 % (36-48); LYMPHOCYTES # (AUTO) 2.1 K/uL (2.5-16.5); LYMPHOCYTES % (AUTO) 36.8 % (20.5-51.1); MEAN CORPUSCULAR HEMOGLOBIN 23 pg (27-31); MEAN CORPUSCULAR HGB CONC 31 g/dL (33-37); MEAN CORPUSCULAR VOLUME 73.7 fL (80-94); MONOCYTES # (AUTO) 0.4 K/uL (0.8-1.0); MONOCYTES % (AUTO) 7.5 % (1.7-9.3); NEUTROPHILS # (AUTO) 2.9 K/uL (1.8-7.7); NEUTROPHILS % (AUTO) 51.2 % (42.2-75.2); PLATELET COUNT (AUTO) 223 K/uL (140-450); RED BLOOD CELL COUNT(AUTO) 4.79 MIL/uL (4.20-5.40); RED CELL DISTRIBUTION WIDTH 19.1 % (11.6-13.7); WHITE BLOOD COUNT (AUTO) 5.6 K/uL (4.8-10.8)
[2023-02-20 04:23] LABS: ALBUMIN 2.8 g/dL (3.4-5.0); ANION GAP 12.4 (8-16); CALCIUM 8.2 mg/dL (8.5-10.1); CARBON DIOXIDE 28.7 mmol/L (21-32); CREATININE 1.5 mg/dL (0.6-1.3); POTASSIUM 4.1 mmol/L (3.5-5.1); TOTAL BILIRUBIN 0.3 mg/dL (0.0-1.0); TOTAL PROTEIN, SERUM 7.4 g/dL (6.4-8.2)
[2023-02-20] MEDS: BUMETANIDE 1 MG/4 ML VIAL IV SCH (16:41)
[2023-02-20 20:00] VITALS: O2SAT 99
[2023-02-20] MEDS: APIXABAN 2.5 MG TAB PO SCH (20:39)
[2023-02-20] MEDS: carvediloL 12.5 MG TAB PO SCH (20:39)
[2023-02-20] MEDS: INSULIN LANTUS 100 UNITS/ML 10 ML VIAL SUBQ SCH (21:53)
[2023-02-20 22:50] VITALS: BP 144/84; PULSE 72; PULSE 95; RESP 20; TEMP 98.4; O2SAT 98
[2023-02-20] MEDS: MAGNESIUM OXIDE 400 MG TAB PO PRN (23:56)
[2023-02-21] VITALS (10 sets, daily range): BP systolic 120–144; BP diastolic 64–90; PULSE 70–103; RESP 18–20; TEMP 97.1–98.2; O2SAT 96–100
[2023-02-21] MEDS: MORPHINE SULFATE 2 MG/ML SYR IVP PRN ×3 (00:01→18:45)
[2023-02-21] MEDS ORDERED: DEXTROSE 50% 50 ML SYR IVP PRN (06:15)
[2023-02-21] MEDS: BLOOD GLUCOSE MONITORING 1 DEV DEV FS SCH ×4 (07:07→21:43)
[2023-02-21] MEDS: INSULIN LISPRO SLIDING SCALE 100 UNITS/ML VIAL SUBQ PRN ×4 (07:10→21:51)
[2023-02-21 08:03] LABS: BASOPHILS # (AUTO) 0.1 K/uL (0.00-0.22); BASOPHILS % (AUTO) 1.3 % (0.0-2.0); EOSINOPHILS # (AUTO) 0.3 K/uL (0-0.4); EOSINOPHILS % (AUTO) 5.5 % (0.0-4.0); HEMATOCRIT 34.2 % (36-48); HEMOGLOBIN 10.5 g/dL (12.0-16.0); LYMPHOCYTES # (AUTO) 1.3 K/uL (2.5-16.5); LYMPHOCYTES % (AUTO) 26.1 % (20.5-51.1); MEAN CORPUSCULAR HEMOGLOBIN 23 pg (27-31); MEAN CORPUSCULAR HGB CONC 31 g/dL (33-37); MEAN CORPUSCULAR VOLUME 74.3 fL (80-94); MONOCYTES # (AUTO) 0.4 K/uL (0.8-1.0); MONOCYTES % (AUTO) 8.2 % (1.7-9.3); NEUTROPHILS % (AUTO) 58.9 % (42.2-75.2); PLATELET COUNT (AUTO) 206 K/uL (140-450); RED CELL DISTRIBUTION WIDTH 19.1 % (11.6-13.7)
[2023-02-21 08:07] LABS: ALBUMIN 2.6 g/dL (3.4-5.0); CALCIUM 8.1 mg/dL (8.5-10.1); CARBON DIOXIDE 31.3 mmol/L (21-32); CREATININE 1.5 mg/dL (0.6-1.3); MAGNESIUM 1.5 mg/dL (1.8-2.4); POTASSIUM 4.3 mmol/L (3.5-5.1); TOTAL BILIRUBIN 0.4 mg/dL (0.0-1.0); TOTAL PROTEIN, SERUM 6.8 g/dL (6.4-8.2)
[2023-02-21] MEDS: BUMETANIDE 1 MG/4 ML VIAL IV SCH ×3 (09:00→16:10)
[2023-02-21] MEDS: ECOTRIN 81 MG TABEC PO SCH (10:31)
[2023-02-21] MEDS: ATORVASTATIN 20 MG TAB PO SCH (10:31)
[2023-02-21] MEDS: SPIRONOLACTONE 25 MG TAB PO SCH (10:32)
[2023-02-21] MEDS: lisinopriL 5 MG TAB PO SCH (10:32)
[2023-02-21] MEDS: carvediloL 12.5 MG TAB PO SCH ×2 (10:32→21:47)
[2023-02-21] MEDS: APIXABAN 2.5 MG TAB PO SCH ×2 (10:33→21:46)
[2023-02-21] MEDS: INSULIN LANTUS 100 UNITS/ML 10 ML VIAL SUBQ SCH (21:51)
[2023-02-22] VITALS: BP 138/72; PULSE 69; PULSE 75; RESP 18; TEMP 97; O2SAT 100
[2023-02-22] MEDS: MORPHINE SULFATE 2 MG/ML SYR IVP PRN ×2 (01:36→09:48)
[2023-02-22 04:00] VITALS: BP 126/63; PULSE 67; PULSE 74; RESP 18; TEMP 97.2; O2SAT 100
[2023-02-22] MEDS: BLOOD GLUCOSE MONITORING 1 DEV DEV FS SCH ×2 (06:46→12:26)
[2023-02-22 07:08] LABS: BASOPHILS % (AUTO) 0.8 % (0.0-2.0); EOSINOPHILS # (AUTO) 0.3 K/uL (0-0.4); EOSINOPHILS % (AUTO) 7.3 % (0.0-4.0); HEMATOCRIT 33.6 % (36-48); HEMOGLOBIN 10.3 g/dL (12.0-16.0); LYMPHOCYTES # (AUTO) 1.2 K/uL (2.5-16.5); LYMPHOCYTES % (AUTO) 27.7 % (20.5-51.1); MEAN CORPUSCULAR HEMOGLOBIN 23 pg (27-31); MEAN CORPUSCULAR HGB CONC 31 g/dL (33-37); MEAN CORPUSCULAR VOLUME 73.7 fL (80-94); MONOCYTES # (AUTO) 0.4 K/uL (0.8-1.0); MONOCYTES % (AUTO) 8.9 % (1.7-9.3); NEUTROPHILS # (AUTO) 2.4 K/uL (1.8-7.7); NEUTROPHILS % (AUTO) 55.3 % (42.2-75.2); PLATELET COUNT (AUTO) 207 K/uL (140-450); RED BLOOD CELL COUNT(AUTO) 4.55 MIL/uL (4.20-5.40); RED CELL DISTRIBUTION WIDTH 18.8 % (11.6-13.7); WHITE BLOOD COUNT (AUTO) 4.4 K/uL (4.8-10.8)
[2023-02-22 07:16] LABS: ALBUMIN 2.5 g/dL (3.4-5.0); ANION GAP 7.7 (8-16); CALCIUM 8.4 mg/dL (8.5-10.1); CARBON DIOXIDE 36.1 mmol/L (21-32); CREATININE 1.5 mg/dL (0.6-1.3); MAGNESIUM 1.7 mg/dL (1.8-2.4); POTASSIUM 3.8 mmol/L (3.5-5.1); TOTAL BILIRUBIN 0.3 mg/dL (0.0-1.0); TOTAL PROTEIN, SERUM 6.8 g/dL (6.4-8.2)
[2023-02-22 08:00] VITALS: PULSE 66; PULSE 70; RESP 18; O2SAT 99
[2023-02-22] MEDS: lisinopriL 5 MG TAB PO SCH (09:33)
[2023-02-22] MEDS: ATORVASTATIN 20 MG TAB PO SCH (09:34)
[2023-02-22] MEDS: ECOTRIN 81 MG TABEC PO SCH (09:34)
[2023-02-22] MEDS: SPIRONOLACTONE 25 MG TAB PO SCH (09:34)
[2023-02-22] MEDS: carvediloL 12.5 MG TAB PO SCH (09:34)
[2023-02-22] MEDS: APIXABAN 2.5 MG TAB PO SCH (09:35)
[2023-02-22] MEDS: BUMETANIDE 1 MG/4 ML VIAL IV SCH (09:45)
[2023-02-22] MEDS: INSULIN LISPRO SLIDING SCALE 100 UNITS/ML VIAL SUBQ PRN (12:25)
[2023-02-22] MEDS: MAGNESIUM OXIDE 400 MG TAB PO PRN (12:46)
== END 2023-02-22 12:55 | disposition home or self-care (01) | DRG 194 ==
LOC: MED 19:15 → MTU 23:29
PROVIDERS: ADMIT Internal Medicine; ATTEND Internal Medicine
DX: I13.0 Hypertensive heart and chronic kidney disease with heart failure and stage 1 through stage 4 chronic kidney disease, or unspecified chronic kidney disease (principal); E43 Unspecified severe protein-calorie malnutrition; E11.22 Type 2 diabetes mellitus with diabetic chronic kidney disease; Z79.01 Long term (current) use of anticoagulants; I48.0 Paroxysmal atrial fibrillation; E11.65 Type 2 diabetes mellitus with hyperglycemia; I50.43 Acute on chronic combined systolic (congestive) and diastolic (congestive) heart failure; J44.9 Chronic obstructive pulmonary disease, unspecified; I44.7 Left bundle-branch block, unspecified; I25.5 Ischemic cardiomyopathy; G47.33 Obstructive sleep apnea (adult) (pediatric); N18.9 Chronic kidney disease, unspecified; Z88.1 Allergy status to other antibiotic agents; Z88.8 Allergy status to other drugs, medicaments and biological substances; Z79.899 Other long term (current) drug therapy; Z82.3 Family history of stroke; Z83.3 Family history of diabetes mellitus; Z82.49 Family history of ischemic heart disease and other diseases of the circulatory system; Z68.39 Body mass index [BMI] 39.0-39.9, adult
CPT/HCPCS: 36415; 71045; 80053; 82948; 83735; 83880; 84484; 85025; 87081; 93005; 96372; 96374; 99285; J1644; J1815; J2270; J3475; J3490

== ENCOUNTER 2023-03-05 20:56 | Observation (INO) | payer MEDICAID ==
[~2023-03-05] VITALS: Ht 172.7 cm; Wt 122.0 kg
[2023-03-05 22:00] VITALS: BP 149/81; PULSE 103; RESP 20; TEMP 98; O2SAT 98
[2023-03-05] MEDS ORDERED: NITROGLYCERIN 2% 1 GM PKT TP ONE ×2 (22:00→23:22)
[2023-03-05] MEDS ORDERED: MORPHINE SULFATE 4 MG/ML SYR IVP ONE (22:00)
[2023-03-05] MEDS ORDERED: ASPIRIN 325 MG TAB PO ONE (22:00)
[2023-03-05 22:23] LABS: BASOPHILS # (AUTO) 0.1 K/uL (0.00-0.22); BASOPHILS % (AUTO) 1.8 % (0.0-2.0); EOSINOPHILS # (AUTO) 0.1 K/uL (0-0.4); EOSINOPHILS % (AUTO) 1.7 % (0.0-4.0); HEMATOCRIT 34.4 % (36-48); HEMOGLOBIN 10.8 g/dL (12.0-16.0); LYMPHOCYTES # (AUTO) 1.5 K/uL (2.5-16.5); LYMPHOCYTES % (AUTO) 22.7 % (20.5-51.1); MEAN CORPUSCULAR HEMOGLOBIN 23 pg (27-31); MEAN CORPUSCULAR HGB CONC 31 g/dL (33-37); MEAN CORPUSCULAR VOLUME 73.4 fL (80-94); MONOCYTES # (AUTO) 0.4 K/uL (0.8-1.0); MONOCYTES % (AUTO) 5.9 % (1.7-9.3); NEUTROPHILS # (AUTO) 4.4 K/uL (1.8-7.7); NEUTROPHILS % (AUTO) 67.9 % (42.2-75.2); PLATELET COUNT (AUTO) 229 K/uL (140-450); RED BLOOD CELL COUNT(AUTO) 4.69 MIL/uL (4.20-5.40); RED CELL DISTRIBUTION WIDTH 19.1 % (11.6-13.7); WHITE BLOOD COUNT (AUTO) 6.4 K/uL (4.8-10.8)
[2023-03-05 22:45] LABS: ALANINE AMINOTRANSFERASE 10 U/L (12-78); ALBUMIN 2.6 g/dL (3.4-5.0); ALKALINE PHOSPHATASE 152 U/L (50-136); ASPARTATE AMINOTRANSFERASE 15 U/L (15-37); BILIRUBIN,DIRECT 0.2 mg/dL (0.0-0.3); TOTAL BILIRUBIN 0.4 mg/dL (0.0-1.0); TOTAL PROTEIN, SERUM 7.3 g/dL (6.4-8.2)
[2023-03-05 22:50] LABS: ANION GAP 9.7 (8-16); CALCIUM 8.5 mg/dL (8.5-10.1); CARBON DIOXIDE 31.7 mmol/L (21-32); CREATININE 1.5 mg/dL (0.6-1.3); POTASSIUM 3.4 mmol/L (3.5-5.1)
[2023-03-05] MEDS ORDERED: ASPIRIN 325 MG TAB ONE (23:22)
[2023-03-05] MEDS ORDERED: MORPHINE SULFATE 4 MG/ML SYR ONE (23:23)
[2023-03-05] MEDS ORDERED: INSULIN REGULAR, HUMAN 100 UNIT/ML VIAL IV ONE (23:50)
[2023-03-06 00:39] LABS: APPEARANCE,URINE CLEAR (CLEAR); BILIRUBIN,URINE NEGATIVE (NEGATIVE); BLOOD, URINE 1+ (NEGATIVE); COLOR,URINE YELLOW (YELLOW); LEUKOCYTE ESTERASE ,URINE NEGATIVE (NEGATIVE); NITRITE, URINE NEGATIVE (NEGATIVE); PROTEIN,URINE 3+ (NEGATIVE); UGLUCOSE 3+ (NEGATIVE)
[2023-03-06 00:42] LABS: BACTERIA,URINE FEW /HPF (None Seen); RBC,URINE 0-5 /HPF (0-5); WBC,URINE 0-5 /HPF (0-5)
[2023-03-06 00:43] LABS: MUCUS,URINE 1+ /LPF (None Seen); SQUAMOUS EPITHELIAL CELL,UR 0-3 (FEW) /LPF (0-3 (FEW))
[2023-03-06] MEDS ORDERED: DEXTROSE 50% 50 ML SYR IVP PRN ×2 (02:50→03:00)
[2023-03-06] MEDS ORDERED: INSULIN LISPRO SLIDING SCALE 100 UNITS/ML VIAL SUBQ PRN (02:50)
[2023-03-06] MEDS ORDERED: BLOOD GLUCOSE MONITORING 1 DEV DEV FS SCH (07:30)
[2023-03-06] MEDS: BLOOD GLUCOSE MONITORING 1 DEV DEV FS SCH ×3 (07:30→16:36)
[2023-03-06] MEDS: INSULIN LISPRO SLIDING SCALE 100 UNITS/ML VIAL SUBQ PRN ×3 (08:36→17:13)
[2023-03-06] MEDS ORDERED: BUMETANIDE 1 MG TAB PO SCH ×3 (09:00→17:00)
[2023-03-06] MEDS ORDERED: APIXABAN 2.5 MG TAB PO SCH ×3 (09:00→21:00)
[2023-03-06] MEDS ORDERED: carvediloL 6.25 MG TAB PO SCH ×2 (09:00)
[2023-03-06] MEDS ORDERED: SPIRONOLACTONE 25 MG TAB PO SCH ×2 (09:00)
[2023-03-06] MEDS ORDERED: ATORVASTATIN 20 MG TAB PO SCH ×3 (09:00→21:00)
[2023-03-06] MEDS ORDERED: lisinopriL 20 MG TAB PO SCH ×2 (09:00)
[2023-03-06] MEDS: MORPHINE SULFATE 4 MG/ML SYR IVP PRN ×2 (09:04→17:06)
[2023-03-06] MEDS ORDERED: CLONIDINE HYDROCHLORIDE 0.1 MG TAB PO PRN (13:20)
[2023-03-06] MEDS ORDERED: INSULIN LISPRO 100 UNITS/ML VIAL SUBQ SCH (13:20)
[2023-03-06] MEDS ORDERED: NITROGLYCERIN 0.4 MG TAB SL PRN (13:20)
[2023-03-06] MEDS ORDERED: HYDROcodone/APAP 5/325 MG 1 TAB TAB PO PRN (13:20)
[2023-03-06] MEDS ORDERED: hydrALAZINE 25 MG TAB PO SCH (17:00)
[2023-03-06 19:20] VITALS: BP 136/79; PULSE 73; RESP 13; TEMP 98.2; O2SAT 96
[2023-03-06] MEDS ORDERED: INSULIN LANTUS 100 UNITS/ML 10 ML VIAL SUBQ SCH ×3 (21:00)
[2023-03-06] MEDS ORDERED: carvediloL 12.5 MG TAB PO SCH (21:00)
[2023-03-07] MEDS ORDERED: ASPIRIN 81 MG TAB.CHEW PO SCH ×3 (09:00)
[2023-03-07] MEDS ORDERED: lisinopriL 5 MG TAB PO SCH (09:00)
[2023-03-07] MEDS ORDERED: SPIRONOLACTONE 25 MG TAB PO SCH (09:00)
== END 2023-03-06 19:20 | disposition home or self-care (01) ==
LOC: MED 20:56 → MTU 03-06 02:46 → MED 03-06 02:46
PROVIDERS: ADMIT Hospitalist; ATTEND Hospitalist
DX: R07.89 Other chest pain (principal); I11.0 Hypertensive heart disease with heart failure; I50.9 Heart failure, unspecified; I25.119 Atherosclerotic heart disease of native coronary artery with unspecified angina pectoris; E11.9 Type 2 diabetes mellitus without complications; D63.8 Anemia in other chronic diseases classified elsewhere; E66.01 Morbid (severe) obesity due to excess calories; J44.9 Chronic obstructive pulmonary disease, unspecified; Z79.82 Long term (current) use of aspirin; Z79.899 Other long term (current) drug therapy
CPT/HCPCS: 36415; 71045; 80048; 80076; 81001; 82948; 83880; 84484; 85025; 85379; 93005; 96372; 96374; 96375; 96376; 99285; G0378; J1815; J2270; Q0092

== ENCOUNTER 2023-03-08 17:43 | Inpatient (IN) | payer MEDICAID ==
[~2023-03-08] VITALS: Ht 172.7 cm; Wt 122.0 kg
[2023-03-08 17:48] VITALS: BP 163/106; PULSE 103; RESP 18; TEMP 98; O2SAT 97
[2023-03-08 19:19] LABS: BASOPHILS # (AUTO) 0.1 K/uL (0.00-0.22); BASOPHILS % (AUTO) 2.7 % (0.0-2.0); EOSINOPHILS # (AUTO) 0.2 K/uL (0-0.4); EOSINOPHILS % (AUTO) 2.9 % (0.0-4.0); HEMATOCRIT 33.5 % (36-48); HEMOGLOBIN 10.5 g/dL (12.0-16.0); LYMPHOCYTES # (AUTO) 1.5 K/uL (2.5-16.5); LYMPHOCYTES % (AUTO) 28.5 % (20.5-51.1); MEAN CORPUSCULAR HEMOGLOBIN 23 pg (27-31); MEAN CORPUSCULAR HGB CONC 31 g/dL (33-37); MONOCYTES # (AUTO) 0.4 K/uL (0.8-1.0); MONOCYTES % (AUTO) 7.5 % (1.7-9.3); NEUTROPHILS # (AUTO) 3.2 K/uL (1.8-7.7); NEUTROPHILS % (AUTO) 58.4 % (42.2-75.2); PLATELET COUNT (AUTO) 261 K/uL (140-450); RED BLOOD CELL COUNT(AUTO) 4.58 MIL/uL (4.20-5.40); WHITE BLOOD COUNT (AUTO) 5.4 K/uL (4.8-10.8)
[2023-03-08 19:24] LABS: ANION GAP 12.5 (8-16); CALCIUM 8.5 mg/dL (8.5-10.1); CARBON DIOXIDE 28.1 mmol/L (21-32); CREATININE 1.5 mg/dL (0.6-1.3); POTASSIUM 3.6 mmol/L (3.5-5.1)
[2023-03-08] MEDS ORDERED: MORPHINE SULFATE 4 MG/ML SYR IVP ONE (19:40)
[2023-03-08] MEDS ORDERED: ASPIRIN 81 MG TAB.CHEW PO ONE (19:40)
[2023-03-08] MEDS ORDERED: ONDANSETRON 4 MG/2 ML VIAL ONE (19:53)
[2023-03-08] MEDS ORDERED: ONDANSETRON 4 MG/2 ML VIAL IVP ONE (19:55)
[2023-03-08] MEDS ORDERED: ACETAMINOPHEN 325 MG TAB PO PRN (20:50)
[2023-03-08] MEDS ORDERED: MAG SULF 2000 MG/WATER PREMIX 50 ML IV PRN (20:50)
[2023-03-08] MEDS ORDERED: HYDROcodone/APAP 5/325 MG 1 TAB TAB PO PRN (20:50)
[2023-03-08] MEDS ORDERED: POTASSIUM CHLORIDE 10 MEQ TABER PO PRN (20:50)
[2023-03-08] MEDS ORDERED: ONDANSETRON 4 MG/2 ML VIAL IVP PRN (20:50)
[2023-03-08 21:50] VITALS: PULSE 97; RESP 20; O2SAT 99
[2023-03-08 22:03] VITALS: BP 156/99; PULSE 97; PULSE 99; RESP 20; TEMP 98; O2SAT 99
[2023-03-08] MEDS: FUROSEMIDE 100 MG/10 ML VIAL IVP SCH (22:27)
[2023-03-09] VITALS (8 sets, daily range): BP systolic 119–180; BP diastolic 63–98; PULSE 73–99; RESP 18–20; TEMP 97.4–98.2; O2SAT 98–100
[2023-03-09] MEDS: MORPHINE SULFATE 4 MG/ML SYR IVP PRN ×4 (00:16→21:03)
[2023-03-09 06:32] LABS: BASOPHILS # (AUTO) 0.2 K/uL (0.00-0.22); BASOPHILS % (AUTO) 2.7 % (0.0-2.0); EOSINOPHILS # (AUTO) 0.2 K/uL (0-0.4); EOSINOPHILS % (AUTO) 3.6 % (0.0-4.0); HEMATOCRIT 34.6 % (36-48); HEMOGLOBIN 10.7 g/dL (12.0-16.0); LYMPHOCYTES # (AUTO) 2.4 K/uL (2.5-16.5); LYMPHOCYTES % (AUTO) 41.3 % (20.5-51.1); MEAN CORPUSCULAR HEMOGLOBIN 23 pg (27-31); MEAN CORPUSCULAR HGB CONC 31 g/dL (33-37); MEAN CORPUSCULAR VOLUME 74.1 fL (80-94); MONOCYTES # (AUTO) 0.5 K/uL (0.8-1.0); NEUTROPHILS # (AUTO) 2.5 K/uL (1.8-7.7); NEUTROPHILS % (AUTO) 43.4 % (42.2-75.2); PLATELET COUNT (AUTO) 275 K/uL (140-450); RED BLOOD CELL COUNT(AUTO) 4.67 MIL/uL (4.20-5.40); RED CELL DISTRIBUTION WIDTH 19.2 % (11.6-13.7); WHITE BLOOD COUNT (AUTO) 5.8 K/uL (4.8-10.8)
[2023-03-09 06:54] LABS: ANION GAP 12.3 (8-16); CALCIUM 8.7 mg/dL (8.5-10.1); CARBON DIOXIDE 29.5 mmol/L (21-32); CREATININE 1.7 mg/dL (0.6-1.3); POTASSIUM 3.8 mmol/L (3.5-5.1)
[2023-03-09] MEDS: FUROSEMIDE 100 MG/10 ML VIAL IVP SCH ×2 (09:51→21:04)
[2023-03-09] MEDS ORDERED: NITROGLYCERIN 0.4 MG TAB SL SCH (14:20)
[2023-03-09] MEDS ORDERED: CLONIDINE HYDROCHLORIDE 0.1 MG TAB PO PRN (14:20)
[2023-03-09] MEDS: hydrALAZINE 25 MG TAB PO SCH (16:15)
[2023-03-09] MEDS: BUMETANIDE 1 MG TAB PO SCH (16:16)
[2023-03-09] MEDS: INSULIN LISPRO 100 UNITS/ML VIAL SUBQ SCH ×2 (16:30→21:00)
[2023-03-09] MEDS: carvediloL 12.5 MG TAB PO SCH (21:04)
[2023-03-09] MEDS: ATORVASTATIN 20 MG TAB PO SCH (21:05)
[2023-03-09] MEDS: APIXABAN 2.5 MG TAB PO SCH (21:15)
[2023-03-09] MEDS: INSULIN LANTUS 100 UNITS/ML 10 ML VIAL SUBQ SCH (21:16)
[2023-03-09] MEDS: BLOOD GLUCOSE MONITORING 1 DEV DEV FS SCH (21:17)
[2023-03-09] MEDS: INSULIN LISPRO SLIDING SCALE 100 UNITS/ML VIAL SUBQ PRN (21:17)
[2023-03-10] VITALS (9 sets, daily range): BP systolic 128–142; BP diastolic 72–83; PULSE 74–112; RESP 18–19; TEMP 96.8–98.8; O2SAT 97–100
[2023-03-10] MEDS: MORPHINE SULFATE 4 MG/ML SYR IVP PRN ×3 (05:32→21:27)
[2023-03-10] MEDS: BLOOD GLUCOSE MONITORING 1 DEV DEV FS SCH ×4 (06:38→21:36)
[2023-03-10] MEDS: INSULIN LISPRO 100 UNITS/ML VIAL SUBQ SCH ×4 (06:39→21:00)
[2023-03-10 06:56] LABS: ANION GAP 9.6 (8-16); CALCIUM 8.3 mg/dL (8.5-10.1); CARBON DIOXIDE 33.9 mmol/L (21-32); CREATININE 1.8 mg/dL (0.6-1.3); POTASSIUM 4.5 mmol/L (3.5-5.1)
[2023-03-10 07:12] LABS: BASOPHILS # (AUTO) 0.1 K/uL (0.00-0.22); BASOPHILS % (AUTO) 1.1 % (0.0-2.0); EOSINOPHILS # (AUTO) 0.3 K/uL (0-0.4); EOSINOPHILS % (AUTO) 4.3 % (0.0-4.0); HEMATOCRIT 34.4 % (36-48); HEMOGLOBIN 10.7 g/dL (12.0-16.0); LYMPHOCYTES # (AUTO) 1.1 K/uL (2.5-16.5); LYMPHOCYTES % (AUTO) 16.2 % (20.5-51.1); MEAN CORPUSCULAR HEMOGLOBIN 23 pg (27-31); MEAN CORPUSCULAR HGB CONC 31 g/dL (33-37); MEAN CORPUSCULAR VOLUME 74.9 fL (80-94); MONOCYTES # (AUTO) 0.5 K/uL (0.8-1.0); MONOCYTES % (AUTO) 6.9 % (1.7-9.3); NEUTROPHILS # (AUTO) 4.8 K/uL (1.8-7.7); NEUTROPHILS % (AUTO) 71.5 % (42.2-75.2); PLATELET COUNT (AUTO) 250 K/uL (140-450); RED BLOOD CELL COUNT(AUTO) 4.59 MIL/uL (4.20-5.40); RED CELL DISTRIBUTION WIDTH 19.4 % (11.6-13.7); WHITE BLOOD COUNT (AUTO) 6.7 K/uL (4.8-10.8)
[2023-03-10] MEDS: APIXABAN 2.5 MG TAB PO SCH ×2 (08:17→21:23)
[2023-03-10] MEDS: carvediloL 12.5 MG TAB PO SCH ×2 (08:17→21:23)
[2023-03-10] MEDS: lisinopriL 5 MG TAB PO SCH (08:17)
[2023-03-10] MEDS: hydrALAZINE 25 MG TAB PO SCH ×3 (08:18→17:00)
[2023-03-10] MEDS: SPIRONOLACTONE 25 MG TAB PO SCH (08:18)
[2023-03-10] MEDS: ASPIRIN 81 MG TAB.CHEW PO SCH (08:18)
[2023-03-10] MEDS: BUMETANIDE 1 MG TAB PO SCH ×3 (08:24→17:00)
[2023-03-10] MEDS: FUROSEMIDE 100 MG/10 ML VIAL IVP SCH ×2 (08:24→21:23)
[2023-03-10] MEDS: INSULIN LISPRO SLIDING SCALE 100 UNITS/ML VIAL SUBQ PRN (15:33)
[2023-03-10] MEDS: ATORVASTATIN 20 MG TAB PO SCH (21:23)
[2023-03-10] MEDS: INSULIN LANTUS 100 UNITS/ML 10 ML VIAL SUBQ SCH (21:35)
[2023-03-11] VITALS: BP 134/66; PULSE 80; PULSE 91; RESP 18; TEMP 97.6; O2SAT 96
[2023-03-11 04:00] VITALS: BP 136/75; PULSE 88; PULSE 91; RESP 18; TEMP 98.8; O2SAT 98
[2023-03-11] MEDS: MORPHINE SULFATE 4 MG/ML SYR IVP PRN ×2 (04:51→13:38)
[2023-03-11] MEDS: INSULIN LISPRO 100 UNITS/ML VIAL SUBQ SCH ×2 (06:20→11:30)
[2023-03-11 06:30] LABS: BASOPHILS # (AUTO) 0.1 K/uL (0.00-0.22); BASOPHILS % (AUTO) 1.1 % (0.0-2.0); EOSINOPHILS # (AUTO) 0.2 K/uL (0-0.4); EOSINOPHILS % (AUTO) 4.3 % (0.0-4.0); HEMATOCRIT 33.9 % (36-48); HEMOGLOBIN 10.6 g/dL (12.0-16.0); LYMPHOCYTES # (AUTO) 0.9 K/uL (2.5-16.5); LYMPHOCYTES % (AUTO) 15.7 % (20.5-51.1); MEAN CORPUSCULAR HEMOGLOBIN 23 pg (27-31); MEAN CORPUSCULAR HGB CONC 31 g/dL (33-37); MEAN CORPUSCULAR VOLUME 73.2 fL (80-94); MONOCYTES # (AUTO) 0.4 K/uL (0.8-1.0); MONOCYTES % (AUTO) 7.9 % (1.7-9.3); NEUTROPHILS # (AUTO) 3.9 K/uL (1.8-7.7); PLATELET COUNT (AUTO) 247 K/uL (140-450); RED BLOOD CELL COUNT(AUTO) 4.64 MIL/uL (4.20-5.40); RED CELL DISTRIBUTION WIDTH 18.9 % (11.6-13.7); WHITE BLOOD COUNT (AUTO) 5.4 K/uL (4.8-10.8)
[2023-03-11 06:35] LABS: ANION GAP 7.7 (8-16); CALCIUM 8.5 mg/dL (8.5-10.1); CREATININE 1.6 mg/dL (0.6-1.3); POTASSIUM 3.7 mmol/L (3.5-5.1)
[2023-03-11] MEDS: BLOOD GLUCOSE MONITORING 1 DEV DEV FS SCH ×2 (07:30→12:28)
[2023-03-11 08:00] VITALS: BP 146/77; PULSE 74; PULSE 82; RESP 18; TEMP 97.4; O2SAT 98; O2SAT 99
[2023-03-11] MEDS: FUROSEMIDE 100 MG/10 ML VIAL IVP SCH (10:11)
[2023-03-11] MEDS: SPIRONOLACTONE 25 MG TAB PO SCH (10:15)
[2023-03-11] MEDS: carvediloL 12.5 MG TAB PO SCH (10:15)
[2023-03-11] MEDS: ASPIRIN 81 MG TAB.CHEW PO SCH (10:16)
[2023-03-11] MEDS: lisinopriL 5 MG TAB PO SCH (10:16)
[2023-03-11] MEDS: BUMETANIDE 1 MG TAB PO SCH ×2 (10:16→13:35)
[2023-03-11] MEDS: hydrALAZINE 25 MG TAB PO SCH ×2 (10:17→13:36)
[2023-03-11] MEDS: APIXABAN 2.5 MG TAB PO SCH (10:18)
[2023-03-11 10:54] VITALS: O2SAT 98
[2023-03-11 12:00] VITALS: BP 151/86; PULSE 73; PULSE 77; RESP 18; TEMP 97.2; O2SAT 100
[2023-03-11 16:00] VITALS: BP 143/71; PULSE 70; RESP 18; TEMP 97.4; O2SAT 99
== END 2023-03-11 16:35 | disposition home or self-care (01) | DRG 203 ==
LOC: MED 17:43 → MTU 20:47 → OBSVTOIN 20:50
PROVIDERS: ADMIT Hospitalist; ATTEND Hospitalist
DX: M94.0 Chondrocostal junction syndrome [Tietze] (principal); I21.A1 Myocardial infarction type 2; I50.33 Acute on chronic diastolic (congestive) heart failure; I27.21 Secondary pulmonary arterial hypertension; I13.0 Hypertensive heart and chronic kidney disease with heart failure and stage 1 through stage 4 chronic kidney disease, or unspecified chronic kidney disease; E11.9 Type 2 diabetes mellitus without complications; E66.01 Morbid (severe) obesity due to excess calories; I10 Essential (primary) hypertension; Z88.1 Allergy status to other antibiotic agents; E78.5 Hyperlipidemia, unspecified; Z79.82 Long term (current) use of aspirin; Z88.8 Allergy status to other drugs, medicaments and biological substances; Z83.3 Family history of diabetes mellitus; Z82.5 Family history of asthma and other chronic lower respiratory diseases; Z82.49 Family history of ischemic heart disease and other diseases of the circulatory system; Z79.899 Other long term (current) drug therapy; Z68.41 Body mass index [BMI] 40.0-44.9, adult; N18.2 Chronic kidney disease, stage 2 (mild)
CPT/HCPCS: 36415; 71045; 80048; 82948; 83735; 83880; 84484; 85025; 87081; 93005; J1644; J1815; J1940; J2270; J2405

== ENCOUNTER 2023-03-20 02:24 | Observation (INO) | payer MEDICAID ==
[~2023-03-20] VITALS: Ht 172.7 cm; Wt 117.9 kg
[2023-03-20 02:29] VITALS: BP 187/80; PULSE 120; RESP 22; TEMP 98; O2SAT 98
[2023-03-20] MEDS ORDERED: NITROGLYCERIN 2% 1 GM PKT TP ONE (03:00)
[2023-03-20] MEDS ORDERED: MORPHINE SULFATE 4 MG/ML SYR IVP ONE (03:00)
[2023-03-20] MEDS ORDERED: ASPIRIN 325 MG TAB PO ONE (03:00)
[2023-03-20 03:13] LABS: BASOPHILS # (AUTO) 0.1 K/uL (0.00-0.22); BASOPHILS % (AUTO) 1.9 % (0.0-2.0); EOSINOPHILS # (AUTO) 0.2 K/uL (0-0.4); EOSINOPHILS % (AUTO) 3.1 % (0.0-4.0); HEMATOCRIT 34.4 % (36-48); LYMPHOCYTES # (AUTO) 1.8 K/uL (2.5-16.5); LYMPHOCYTES % (AUTO) 23.1 % (20.5-51.1); MEAN CORPUSCULAR HEMOGLOBIN 23 pg (27-31); MEAN CORPUSCULAR HGB CONC 32 g/dL (33-37); MEAN CORPUSCULAR VOLUME 72.6 fL (80-94); MONOCYTES # (AUTO) 0.6 K/uL (0.8-1.0); MONOCYTES % (AUTO) 7.5 % (1.7-9.3); NEUTROPHILS % (AUTO) 64.4 % (42.2-75.2); PLATELET COUNT (AUTO) 196 K/uL (140-450); RED BLOOD CELL COUNT(AUTO) 4.74 MIL/uL (4.20-5.40); RED CELL DISTRIBUTION WIDTH 19.5 % (11.6-13.7); WHITE BLOOD COUNT (AUTO) 7.7 K/uL (4.8-10.8)
[2023-03-20 03:26] LABS: ANION GAP 10.2 (8-16); CALCIUM 8.8 mg/dL (8.5-10.1); CARBON DIOXIDE 28.6 mmol/L (21-32); CREATININE 1.3 mg/dL (0.6-1.3); POTASSIUM 3.8 mmol/L (3.5-5.1)
[2023-03-20] MEDS ORDERED: HYDROcodone/APAP 5/325 MG 1 TAB TAB PO PRN (05:50)
[2023-03-20] MEDS ORDERED: MORPHINE SULFATE 4 MG/ML SYR IVP PRN (05:50)
[2023-03-20] MEDS ORDERED: ONDANSETRON 4 MG/2 ML VIAL IVP PRN (05:50)
[2023-03-20] MEDS ORDERED: POTASSIUM CHLORIDE 10 MEQ TABER PO PRN (05:50)
[2023-03-20] MEDS ORDERED: MAGNESIUM OXIDE 400 MG TAB PO PRN (05:50)
[2023-03-20] MEDS ORDERED: ACETAMINOPHEN 325 MG TAB PO PRN (05:50)
[2023-03-20] MEDS ORDERED: DEXTROSE 50% 50 ML SYR IVP PRN (05:55)
[2023-03-20] MEDS ORDERED: INSULIN LISPRO 100 UNITS/ML VIAL SUBQ ONE (05:55)
[2023-03-20 06:04] VITALS: O2SAT 91
[2023-03-20 07:47] VITALS: O2SAT 91
[2023-03-20] MEDS: BLOOD GLUCOSE MONITORING 1 DEV DEV FS SCH ×2 (07:55→12:13)
[2023-03-20] MEDS: INSULIN LISPRO SLIDING SCALE 100 UNITS/ML VIAL SUBQ PRN ×2 (07:58→12:16)
[2023-03-20] MEDS ORDERED: carvediloL 6.25 MG TAB PO SCH (09:00)
[2023-03-20] MEDS ORDERED: FUROSEMIDE 40 MG/4 ML VIAL IVP SCH (09:00)
[2023-03-20] MEDS ORDERED: INSULIN LANTUS 100 UNITS/ML 10 ML VIAL SUBQ SCH (09:00)
[2023-03-20 12:26] VITALS: BP 140/76; PULSE 96; RESP 21; TEMP 98
[2023-03-20 12:48] VITALS: BP 151/97; PULSE 77; RESP 14; TEMP 98.6; O2SAT 99
[2023-03-20] MEDS ORDERED: carvediloL 12.5 MG TAB PO SCH (21:00)
== END 2023-03-20 12:50 | disposition home or self-care (01) ==
LOC: MED 02:24 → MTU 05:52
PROVIDERS: ADMIT Student in an Organized Health Care Education/Training Program; ATTEND Student in an Organized Health Care Education/Training Program
DX: I21.A1 Myocardial infarction type 2 (principal); I25.10 Atherosclerotic heart disease of native coronary artery without angina pectoris; J96.11 Chronic respiratory failure with hypoxia; J44.9 Chronic obstructive pulmonary disease, unspecified; E11.9 Type 2 diabetes mellitus without complications; I11.0 Hypertensive heart disease with heart failure; I50.9 Heart failure, unspecified; E66.9 Obesity, unspecified; E78.5 Hyperlipidemia, unspecified; Z79.82 Long term (current) use of aspirin; Z79.899 Other long term (current) drug therapy
CPT/HCPCS: 36415; 71045; 80048; 83880; 84484; 85025; 85379; 93005; 96372; 96374; 96375; 99285; G0378; J1644; J1815; J1940; J2270

== ENCOUNTER 2023-03-22 20:09 | Observation (INO) | payer MEDICAID ==
[~2023-03-22] VITALS: Ht 172.7 cm; Wt 117.0 kg
[2023-03-22 20:10] VITALS: BP 150/70; PULSE 99; RESP 18; TEMP 97.7; O2SAT 100
[2023-03-22 21:54] LABS: BASOPHILS # (AUTO) 0.2 K/uL (0.00-0.22); BASOPHILS % (AUTO) 3.3 % (0.0-2.0); EOSINOPHILS # (AUTO) 0.2 K/uL (0-0.4); EOSINOPHILS % (AUTO) 3.8 % (0.0-4.0); HEMATOCRIT 33.5 % (36-48); HEMOGLOBIN 10.7 g/dL (12.0-16.0); LYMPHOCYTES # (AUTO) 1.8 K/uL (2.5-16.5); LYMPHOCYTES % (AUTO) 30.1 % (20.5-51.1); MEAN CORPUSCULAR HEMOGLOBIN 23 pg (27-31); MEAN CORPUSCULAR HGB CONC 32 g/dL (33-37); MONOCYTES # (AUTO) 0.4 K/uL (0.8-1.0); MONOCYTES % (AUTO) 7.4 % (1.7-9.3); NEUTROPHILS # (AUTO) 3.3 K/uL (1.8-7.7); NEUTROPHILS % (AUTO) 55.4 % (42.2-75.2); PLATELET COUNT (AUTO) 262 K/uL (140-450); RED BLOOD CELL COUNT(AUTO) 4.59 MIL/uL (4.20-5.40); RED CELL DISTRIBUTION WIDTH 19.5 % (11.6-13.7)
[2023-03-22 22:08] LABS: ANION GAP 7.8 (8-16); CALCIUM 8.5 mg/dL (8.5-10.1); CARBON DIOXIDE 31.8 mmol/L (21-32); CREATININE 1.5 mg/dL (0.6-1.3); POTASSIUM 4.6 mmol/L (3.5-5.1)
[2023-03-22 22:09] LABS: PARTIAL THROMBOPLASTIN TIME 24.4 secs (22-35.6); PROTHROMBIN TIME 10.5 secs (10.8-13.4)
[2023-03-22 22:16] LABS: ALBUMIN 2.8 g/dL (3.4-5.0); BILIRUBIN,DIRECT 0.1 mg/dL (0.0-0.3); TOTAL BILIRUBIN 0.3 mg/dL (0.0-1.0); TOTAL PROTEIN, SERUM 7.5 g/dL (6.4-8.2)
[2023-03-22] MEDS ORDERED: IPRATROPIUM 0.02% 0.5 MG/2.5 ML NEBU INH ONE (22:50)
[2023-03-22] MEDS ORDERED: NITROGLYCERIN 0.4 MG TAB SL ONE (22:50)
[2023-03-22] MEDS ORDERED: ALBUTEROL 0.083% 2.5 MG/3 ML NEBU INH ONE (22:50)
[2023-03-22] MEDS ORDERED: MORPHINE SULFATE 4 MG/ML SYR IVP ONE (23:30)
[2023-03-22] MEDS ORDERED: ONDANSETRON 4 MG/2 ML VIAL IVP ONE (23:30)
[2023-03-22 23:59] VITALS: PULSE 100; PULSE 102; RESP 18; O2SAT 99
[2023-03-23] MEDS ORDERED: ACETAMINOPHEN 325 MG TAB PO PRN ×2 (01:00→01:15)
[2023-03-23] MEDS ORDERED: ONDANSETRON 4 MG/2 ML VIAL IVP PRN ×2 (01:00→01:15)
[2023-03-23] MEDS ORDERED: HYDROcodone/APAP 5/325 MG 1 TAB TAB PO PRN ×2 (01:00→01:15)
[2023-03-23] MEDS ORDERED: MORPHINE SULFATE 4 MG/ML SYR IVP PRN ×2 (01:00→01:15)
[2023-03-23] MEDS ORDERED: POTASSIUM CHLORIDE 10 MEQ TABER PO PRN ×2 (01:00→01:15)
[2023-03-23] MEDS ORDERED: MAGNESIUM OXIDE 400 MG TAB PO PRN ×2 (01:00→01:15)
[2023-03-23] MEDS ORDERED: KCL 20 MEQ IN 100 mL PREMIX 200 ML IV PRN ×2 (01:00→01:15)
[2023-03-23] MEDS ORDERED: MAG SULF 2000 MG/WATER PREMIX 50 ML IV PRN ×2 (01:00→01:15)
[2023-03-23 03:58] VITALS: PULSE 101; RESP 18; O2SAT 96
[2023-03-23 04:00] VITALS: BP 148/88; PULSE 101; PULSE 86; RESP 18; TEMP 97.8; O2SAT 96
[2023-03-23 08:00] VITALS: BP 139/87; PULSE 84; PULSE 85; RESP 18; TEMP 96.9; O2SAT 100
[2023-03-23 12:00] VITALS: BP 162/94; PULSE 83; RESP 18; TEMP 96.9; O2SAT 100
== END 2023-03-23 14:15 | disposition home or self-care (01) ==
LOC: MED 20:09 → MTU 03-23 01:03 → MED 03-23 01:09 → MTU 03-23 02:27
PROVIDERS: ADMIT Hospitalist; ATTEND Hospitalist
DX: R07.89 Other chest pain (principal); R10.9 Unspecified abdominal pain; I25.10 Atherosclerotic heart disease of native coronary artery without angina pectoris; I11.0 Hypertensive heart disease with heart failure; I50.9 Heart failure, unspecified; J44.9 Chronic obstructive pulmonary disease, unspecified; E11.9 Type 2 diabetes mellitus without complications; E78.5 Hyperlipidemia, unspecified; Z79.899 Other long term (current) drug therapy
CPT/HCPCS: 36415; 71045; 80048; 80076; 83880; 84484; 85025; 85610; 85730; 93005; 94640; 94760; 96372; 96374; 96375; 96376; 99285; G0378; J1644; J2270; J2405; J7613; J7644

== ENCOUNTER 2023-03-27 22:50 | Emergency (ER) | payer MEDICAID ==
[~2023-03-27] VITALS: Ht 167.6 cm; Wt 113.9 kg
[2023-03-27 22:59] VITALS: BP 184/115; PULSE 110; RESP 24; TEMP 98.4; O2SAT 94
[2023-03-27] MEDS ORDERED: MORPHINE SULFATE 4 MG/ML SYR IVP ONE (23:05)
[2023-03-28] MEDS ORDERED: MORPHINE SULFATE 4 MG/ML SYR IVP ONE
[2023-03-28 00:26] VITALS: BP 178/94; PULSE 88; RESP 25; O2SAT 95
== END 2023-03-28 00:26 | disposition home or self-care (01) ==
LOC: MED 22:50
DX: R07.9 Chest pain, unspecified (principal); R06.02 Shortness of breath; R00.0 Tachycardia, unspecified; I11.0 Hypertensive heart disease with heart failure; I50.9 Heart failure, unspecified; I25.10 Atherosclerotic heart disease of native coronary artery without angina pectoris; J44.9 Chronic obstructive pulmonary disease, unspecified; E11.9 Type 2 diabetes mellitus without complications; N19 Unspecified kidney failure; Z98.51 Tubal ligation status; Z79.899 Other long term (current) drug therapy; Z79.82 Long term (current) use of aspirin; Z79.01 Long term (current) use of anticoagulants; Z79.4 Long term (current) use of insulin; Z88.8 Allergy status to other drugs, medicaments and biological substances; Z88.6 Allergy status to analgesic agent; Z88.5 Allergy status to narcotic agent
CPT/HCPCS: 71045; 93005; 96374; 96376; 99284; J2270; Q0092

== ENCOUNTER 2023-04-02 20:01 | Emergency (ER) | payer MEDICAID ==
[~2023-04-02] VITALS: Ht 162.6 cm; Wt 113.4 kg
[2023-04-02 20:09] VITALS: BP 167/101; PULSE 99; RESP 18; TEMP 97; O2SAT 95
[2023-04-02 22:09] LABS: BASOPHILS # (AUTO) 0.1 K/uL (0.00-0.22); BASOPHILS % (AUTO) 1.6 % (0.0-2.0); EOSINOPHILS # (AUTO) 0.2 K/uL (0-0.4); EOSINOPHILS % (AUTO) 2.9 % (0.0-4.0); HEMATOCRIT 32.6 % (36-48); HEMOGLOBIN 10.3 g/dL (12.0-16.0); LYMPHOCYTES # (AUTO) 1.6 K/uL (2.5-16.5); LYMPHOCYTES % (AUTO) 29.4 % (20.5-51.1); MEAN CORPUSCULAR HEMOGLOBIN 23 pg (27-31); MEAN CORPUSCULAR HGB CONC 32 g/dL (33-37); MEAN CORPUSCULAR VOLUME 72.7 fL (80-94); MONOCYTES # (AUTO) 0.4 K/uL (0.8-1.0); NEUTROPHILS # (AUTO) 3.1 K/uL (1.8-7.7); NEUTROPHILS % (AUTO) 59.1 % (42.2-75.2); PLATELET COUNT (AUTO) 307 K/uL (140-450); RED BLOOD CELL COUNT(AUTO) 4.48 MIL/uL (4.20-5.40); RED CELL DISTRIBUTION WIDTH 19.5 % (11.6-13.7); WHITE BLOOD COUNT (AUTO) 5.3 K/uL (4.8-10.8)
[2023-04-02] MEDS ORDERED: MORPHINE SULFATE 4 MG/ML SYR IVP ONE (22:10)
[2023-04-02 22:36] LABS: CALCIUM 8.1 mg/dL (8.5-10.1); CREATININE 1.5 mg/dL (0.6-1.3); INR 1.02 (0.8-1.2); PARTIAL THROMBOPLASTIN TIME 24.1 secs (22-35.6); PROTHROMBIN TIME 10.7 secs (10.8-13.4)
[2023-04-02 22:47] LABS: ALBUMIN 2.7 g/dL (3.4-5.0); BILIRUBIN,DIRECT 0.2 mg/dL (0.0-0.3); TOTAL BILIRUBIN 0.4 mg/dL (0.0-1.0); TOTAL PROTEIN, SERUM 8.1 g/dL (6.4-8.2)
[2023-04-03 00:11] LABS: APPEARANCE,URINE CLEAR (CLEAR); BILIRUBIN,URINE NEGATIVE (NEGATIVE); BLOOD, URINE 1+ (NEGATIVE); COLOR,URINE YELLOW (YELLOW); LEUKOCYTE ESTERASE ,URINE NEGATIVE (NEGATIVE); NITRITE, URINE NEGATIVE (NEGATIVE); PROTEIN,URINE 2+ (NEGATIVE); UGLUCOSE 3+ (NEGATIVE)
[2023-04-03 00:34] VITALS: BP 167/101; PULSE 99; RESP 18; TEMP 97; O2SAT 95
[2023-04-03 02:31] LABS: BACTERIA,URINE 10-30 (MOD) /HPF (None Seen); MUCUS,URINE 1+ /LPF (None Seen); RBC,URINE 0-5 /HPF (0-5); SQUAMOUS EPITHELIAL CELL,UR 0-3 (FEW) /LPF (0-3 (FEW)); WBC,URINE 0-5 /HPF (0-5)
== END 2023-04-03 00:35 | disposition home or self-care (01) ==
LOC: MED 20:01
DX: R10.9 Unspecified abdominal pain (principal); R79.89 Other specified abnormal findings of blood chemistry; R07.9 Chest pain, unspecified; I13.0 Hypertensive heart and chronic kidney disease with heart failure and stage 1 through stage 4 chronic kidney disease, or unspecified chronic kidney disease; J44.9 Chronic obstructive pulmonary disease, unspecified; E11.22 Type 2 diabetes mellitus with diabetic chronic kidney disease; N18.9 Chronic kidney disease, unspecified; Z79.4 Long term (current) use of insulin; Z88.5 Allergy status to narcotic agent; Z79.899 Other long term (current) drug therapy
CPT/HCPCS: 36415; 71045; 74176; 80048; 80076; 81001; 83690; 83880; 84484; 85025; 85610; 85730; 87086; 93005; 96374; 99285; J2270

== ENCOUNTER 2023-04-13 18:38 | Observation (INO) | payer MEDICAID ==
[~2023-04-13] VITALS: Ht 172.7 cm; Wt 121.1 kg
[2023-04-13 19:05] VITALS: BP 185/101; PULSE 89; RESP 20; TEMP 98; O2SAT 98
[2023-04-13 19:50] LABS: BASOPHILS # (AUTO) 0.1 K/uL (0.00-0.22); BASOPHILS % (AUTO) 1.2 % (0.0-2.0); EOSINOPHILS # (AUTO) 0.2 K/uL (0-0.4); EOSINOPHILS % (AUTO) 3.5 % (0.0-4.0); HEMATOCRIT 33.3 % (36-48); HEMOGLOBIN 10.4 g/dL (12.0-16.0); LYMPHOCYTES # (AUTO) 1.1 K/uL (2.5-16.5); LYMPHOCYTES % (AUTO) 19.4 % (20.5-51.1); MEAN CORPUSCULAR HEMOGLOBIN 22 pg (27-31); MEAN CORPUSCULAR HGB CONC 31 g/dL (33-37); MEAN CORPUSCULAR VOLUME 71.6 fL (80-94); MONOCYTES # (AUTO) 0.4 K/uL (0.8-1.0); MONOCYTES % (AUTO) 6.8 % (1.7-9.3); NEUTROPHILS # (AUTO) 3.9 K/uL (1.8-7.7); NEUTROPHILS % (AUTO) 69.1 % (42.2-75.2); PLATELET COUNT (AUTO) 197 K/uL (140-450); RED BLOOD CELL COUNT(AUTO) 4.65 MIL/uL (4.20-5.40); RED CELL DISTRIBUTION WIDTH 20.1 % (11.6-13.7); WHITE BLOOD COUNT (AUTO) 5.7 K/uL (4.8-10.8)
[2023-04-13] MEDS ORDERED: IPRATROPIUM 0.02% 0.5 MG/2.5 ML NEBU INH ONE (19:50)
[2023-04-13] MEDS ORDERED: ALBUTEROL 0.083% 2.5 MG/3 ML NEBU INH ONE (19:50)
[2023-04-13] MEDS ORDERED: MORPHINE SULFATE 4 MG/ML SYR IM ONE (19:50)
[2023-04-13] MEDS ORDERED: methylPREDNISolone SS 125 MG in WATER STERILE 2 ML IM ONE (19:55)
[2023-04-13 20:07] LABS: ANION GAP 12.1 (8-16); CALCIUM 8.4 mg/dL (8.5-10.1); CARBON DIOXIDE 31.7 mmol/L (21-32); CREATININE 1.5 mg/dL (0.6-1.3); POTASSIUM 3.8 mmol/L (3.5-5.1)
[2023-04-13] MEDS ORDERED: INSULIN REGULAR, HUMAN 100 UNIT/ML VIAL IVP ONE (20:35)
[2023-04-13] MEDS ORDERED: FUROSEMIDE 40 MG/4 ML VIAL IVP ONE ×2 (20:35→22:02)
[2023-04-13 20:39] VITALS: PULSE 104; RESP 20; O2SAT 96
[2023-04-13] MEDS ORDERED: MORPHINE SULFATE 4 MG/ML SYR ONE (22:02)
[2023-04-13] MEDS ORDERED: methylPREDNISolone SS 125 MG/2 ML VIAL ONE (22:02)
[2023-04-13] MEDS ORDERED: ONDANSETRON 4 MG/2 ML VIAL ONE (22:06)
[2023-04-13] MEDS ORDERED: ONDANSETRON 4 MG/2 ML VIAL IVP ONE (22:35)
[2023-04-13] MEDS ORDERED: MAGNESIUM OXIDE 400 MG TAB PO PRN (23:00)
[2023-04-13] MEDS ORDERED: LORazepam 1 MG TAB PO PRN (23:00)
[2023-04-13] MEDS ORDERED: POTASSIUM CHLORIDE 10 MEQ TABER PO PRN (23:00)
[2023-04-13] MEDS ORDERED: HYDROcodone/APAP 5/325 MG 1 TAB TAB PO PRN (23:00)
[2023-04-13] MEDS ORDERED: MAG SULF 2000 MG/WATER PREMIX 50 ML IV PRN (23:00)
[2023-04-13] MEDS ORDERED: ZOLPIDEM 5 MG TAB PO PRN (23:00)
[2023-04-13] MEDS ORDERED: ONDANSETRON 4 MG/2 ML VIAL IVP PRN (23:00)
[2023-04-13] MEDS ORDERED: ACETAMINOPHEN 325 MG TAB PO PRN (23:00)
[2023-04-13] MEDS ORDERED: DEXTROSE 50% 50 ML SYR IVP PRN (23:05)
[2023-04-13] MEDS ORDERED: INSULIN LANTUS 100 UNITS/ML 10 ML VIAL SUBQ SCH (23:05)
[2023-04-13] MEDS ORDERED: CLONIDINE HYDROCHLORIDE 0.1 MG TAB PO PRN (23:10)
[2023-04-14] VITALS (13 sets, daily range): BP systolic 122–154; BP diastolic 56–94; PULSE 70–113; RESP 18–20; TEMP 96.8–97.9; O2SAT 95–100
[2023-04-14] MEDS: MORPHINE SULFATE 4 MG/ML SYR IVP PRN ×4 (00:49→20:14)
[2023-04-14 05:30] LABS: BASOPHILS # (AUTO) 0.1 K/uL (0.00-0.22); BASOPHILS % (AUTO) 0.5 % (0.0-2.0); HEMATOCRIT 35.8 % (36-48); HEMOGLOBIN 11.1 g/dL (12.0-16.0); LYMPHOCYTES # (AUTO) 0.3 K/uL (2.5-16.5); LYMPHOCYTES % (AUTO) 2.8 % (20.5-51.1); MEAN CORPUSCULAR HEMOGLOBIN 22 pg (27-31); MEAN CORPUSCULAR HGB CONC 31 g/dL (33-37); MEAN CORPUSCULAR VOLUME 71.7 fL (80-94); MONOCYTES # (AUTO) 0.1 K/uL (0.8-1.0); MONOCYTES % (AUTO) 0.8 % (1.7-9.3); NEUTROPHILS # (AUTO) 11.4 K/uL (1.8-7.7); NEUTROPHILS % (AUTO) 95.9 % (42.2-75.2); PLATELET COUNT (AUTO) 207 K/uL (140-450); RED BLOOD CELL COUNT(AUTO) 4.99 MIL/uL (4.20-5.40); WHITE BLOOD COUNT (AUTO) 11.8 K/uL (4.8-10.8)
[2023-04-14 06:36] LABS: ANION GAP 14.4 (8-16); CALCIUM 8.8 mg/dL (8.5-10.1); CREATININE 1.6 mg/dL (0.6-1.3); POTASSIUM 4.4 mmol/L (3.5-5.1)
[2023-04-14] MEDS: INSULIN LISPRO SLIDING SCALE 100 UNITS/ML VIAL SUBQ PRN ×5 (06:52→20:44)
[2023-04-14] MEDS: BLOOD GLUCOSE MONITORING 1 DEV DEV FS SCH ×4 (07:02→20:45)
[2023-04-14] MEDS: ALBUTEROL SULFATE/IPRATROPIU 3 ML SOL IH SCH ×3 (07:43→19:54)
[2023-04-14] MEDS: ASPIRIN 81 MG TAB.CHEW PO SCH (10:12)
[2023-04-14] MEDS: carvediloL 12.5 MG TAB PO SCH ×2 (10:13→20:36)
[2023-04-14] MEDS: hydrALAZINE 25 MG TAB PO SCH ×3 (10:13→18:20)
[2023-04-14] MEDS ORDERED: INSULIN LISPRO 100 UNITS/ML VIAL SUBQ SCH (11:45)
[2023-04-14] MEDS ORDERED: CLONIDINE HYDROCHLORIDE 0.1 MG TAB PO PRN (14:45)
[2023-04-14] MEDS ORDERED: NITROGLYCERIN 0.4 MG TAB SL PRN (14:45)
[2023-04-14] MEDS: BUMETANIDE 1 MG TAB PO SCH (18:20)
[2023-04-14] MEDS ORDERED: INSULIN LISPRO 100 UNITS/ML VIAL SUBQ ONE (18:55)
[2023-04-14] MEDS: APIXABAN 2.5 MG TAB PO SCH (20:41)
[2023-04-14] MEDS: INSULIN LANTUS 100 UNITS/ML 10 ML VIAL SUBQ SCH (20:47)
[2023-04-14] MEDS ORDERED: ATORVASTATIN 20 MG TAB PO SCH (21:00)
[2023-04-15] VITALS (7 sets, daily range): BP systolic 103–121; BP diastolic 54–77; PULSE 65–76; RESP 18–65; TEMP 97.4–97.8; O2SAT 98–100
[2023-04-15] MEDS: HYDRAGUARD CREAM TP SCH ×2 (01:13→12:06)
[2023-04-15 06:17] LABS: ANION GAP 5.9 (8-16); CALCIUM 8.1 mg/dL (8.5-10.1); CARBON DIOXIDE 35.1 mmol/L (21-32); CREATININE 1.6 mg/dL (0.6-1.3)
[2023-04-15] MEDS: MORPHINE SULFATE 4 MG/ML SYR IVP PRN ×2 (06:30→11:05)
[2023-04-15] MEDS: BLOOD GLUCOSE MONITORING 1 DEV DEV FS SCH ×2 (06:38→11:03)
[2023-04-15] MEDS: ALBUTEROL SULFATE/IPRATROPIU 3 ML SOL IH SCH ×2 (06:38→14:05)
[2023-04-15 07:52] LABS: HEMATOCRIT 32.2 % (36-48); HEMOGLOBIN 10.2 g/dL (12.0-16.0); MEAN CORPUSCULAR HEMOGLOBIN 22 pg (27-31); MEAN CORPUSCULAR HGB CONC 32 g/dL (33-37); MEAN CORPUSCULAR VOLUME 70.4 fL (80-94); PLATELET COUNT (AUTO) 214 K/uL (140-450); RED BLOOD CELL COUNT(AUTO) 4.57 MIL/uL (4.20-5.40); RED CELL DISTRIBUTION WIDTH 19.3 % (11.6-13.7); WHITE BLOOD COUNT (AUTO) 9.4 K/uL (4.8-10.8)
[2023-04-15 07:53] LABS: BASOPHILS % (MANUAL) 0 % (0-2); BLASTS, MANUAL % 0 % (0-0); EOSINOPHILS % (MANUAL) 0 % (0-4); LYMPHOCYTES % (MANUAL) 20 % (20-46); METAMYELOCYTES % 0 % (0-0); MONOCYTES % (MANUAL) 5 % (5-12); MYELOCYTES % 0 % (0-0); OTHER CELLS,MANUAL % 0 (0-0); PROMYELOCYTES % 0 % (0-0)
[2023-04-15 07:54] LABS: PLATELET ESTIMATE ADEQUATE
[2023-04-15 07:55] LABS: ANISOCYTOSIS 1+; OVALOCYTES 1+
[2023-04-15] MEDS: carvediloL 12.5 MG TAB PO SCH (08:08)
[2023-04-15] MEDS: ASPIRIN 81 MG TAB.CHEW PO SCH (08:09)
[2023-04-15] MEDS: BUMETANIDE 1 MG TAB PO SCH ×2 (08:09→12:04)
[2023-04-15] MEDS: hydrALAZINE 25 MG TAB PO SCH ×2 (08:10→12:04)
[2023-04-15] MEDS: APIXABAN 2.5 MG TAB PO SCH (08:12)
[2023-04-15] MEDS: INSULIN LANTUS 100 UNITS/ML 10 ML VIAL SUBQ SCH (08:15)
[2023-04-15] MEDS ORDERED: lisinopriL 5 MG TAB PO SCH (09:00)
[2023-04-15] MEDS ORDERED: SPIRONOLACTONE 25 MG TAB PO SCH (09:00)
[2023-04-15] MEDS: INSULIN LISPRO SLIDING SCALE 100 UNITS/ML VIAL SUBQ PRN (11:05)
[2023-04-15] MEDS ORDERED: MILD SOAP AND WATER TP SCH (13:00)
[2023-04-17] MEDS ORDERED: FOAM DRESSING TP SCH (09:00)
== END 2023-04-15 15:47 | disposition home or self-care (01) ==
LOC: MED 18:38 → MTU 23:00 → INTOOBSV 23:00 → MMU 23:38
PROVIDERS: ADMIT Internal Medicine; ATTEND Internal Medicine
DX: I13.0 Hypertensive heart and chronic kidney disease with heart failure and stage 1 through stage 4 chronic kidney disease, or unspecified chronic kidney disease (principal); E11.22 Type 2 diabetes mellitus with diabetic chronic kidney disease; I50.23 Acute on chronic systolic (congestive) heart failure; N18.9 Chronic kidney disease, unspecified; E11.65 Type 2 diabetes mellitus with hyperglycemia; E66.01 Morbid (severe) obesity due to excess calories; G47.33 Obstructive sleep apnea (adult) (pediatric); J44.1 Chronic obstructive pulmonary disease with (acute) exacerbation; E78.5 Hyperlipidemia, unspecified; I48.91 Unspecified atrial fibrillation; I21.4 Non-ST elevation (NSTEMI) myocardial infarction; Z79.899 Other long term (current) drug therapy
CPT/HCPCS: 36415; 71045; 80048; 82948; 83036; 83735; 83880; 84484; 85025; 87081; 93005; 94640; 94760; 96365; 96366; 96372; 96375; 96376; 99291; G0378; J1815; J1940; J2270; J2405; J2930; J3475; J7613; J7644

== ENCOUNTER 2023-04-24 17:28 | Emergency (ER) | payer MEDICAID ==
[~2023-04-24] VITALS: Ht 167.6 cm; Wt 99.8 kg
[2023-04-24 17:31] VITALS: BP 180/95; PULSE 101; RESP 22; TEMP 97.8; O2SAT 96
[2023-04-24] MEDS ORDERED: ONDANSETRON 4 MG/2 ML VIAL IVP ONE (18:30)
[2023-04-24] MEDS ORDERED: ALBUTEROL SULFATE/IPRATROPIU 3 ML SOL IH ONE (18:30)
[2023-04-24] MEDS ORDERED: MORPHINE SULFATE 4 MG/ML SYR IVP ONE ×2 (18:30→20:25)
[2023-04-24 18:39] VITALS: PULSE 107; RESP 18; O2SAT 95; O2SAT 96
[2023-04-24 19:03] LABS: BASOPHILS % (AUTO) 0.4 % (0.0-2.0); EOSINOPHILS # (AUTO) 0.2 K/uL (0-0.4); EOSINOPHILS % (AUTO) 2.5 % (0.0-4.0); HEMATOCRIT 33.6 % (36-48); HEMOGLOBIN 10.6 g/dL (12.0-16.0); LYMPHOCYTES # (AUTO) 1.8 K/uL (2.5-16.5); LYMPHOCYTES % (AUTO) 28.2 % (20.5-51.1); MEAN CORPUSCULAR HEMOGLOBIN 22 pg (27-31); MEAN CORPUSCULAR HGB CONC 32 g/dL (33-37); MEAN CORPUSCULAR VOLUME 70.9 fL (80-94); MONOCYTES # (AUTO) 0.4 K/uL (0.8-1.0); MONOCYTES % (AUTO) 6.7 % (1.7-9.3); NEUTROPHILS # (AUTO) 3.9 K/uL (1.8-7.7); NEUTROPHILS % (AUTO) 62.2 % (42.2-75.2); PLATELET COUNT (AUTO) 290 K/uL (140-450); RED BLOOD CELL COUNT(AUTO) 4.74 MIL/uL (4.20-5.40); RED CELL DISTRIBUTION WIDTH 19.8 % (11.6-13.7); WHITE BLOOD COUNT (AUTO) 6.3 K/uL (4.8-10.8)
[2023-04-24 19:12] LABS: ANION GAP 8.7 (8-16); CALCIUM 8.6 mg/dL (8.5-10.1); CARBON DIOXIDE 31.2 mmol/L (21-32); CREATININE 1.4 mg/dL (0.6-1.3); POTASSIUM 3.9 mmol/L (3.5-5.1)
[2023-04-24 19:25] LABS: FLU A ANTIGEN negative (NEGATIVE); FLU B ANTIGEN NEGATIVE (NEGATIVE)
[2023-04-24 19:34] LABS: LIPASE 17 U/L (16-77)
[2023-04-24] MEDS ORDERED: guaiFENesin DM 200/20 MG-10 ML 10 ML UDC PO ONE (20:25)
[2023-04-24] MEDS ORDERED: BENZ200C4 PO (22:00)
[2023-04-24] MEDS ORDERED: PROM118S5 PO (22:00)
[2023-04-24] MEDS ORDERED: ALBU0.0912 INH (22:00)
[2023-04-24] MEDS ORDERED: SPIMDI INH (22:00)
[2023-04-24 23:28] VITALS: BP 180/95; PULSE 103; RESP 15; TEMP 98.3; O2SAT 100
== END 2023-04-24 23:28 | disposition home or self-care (01) ==
LOC: MED 17:28
DX: J44.1 Chronic obstructive pulmonary disease with (acute) exacerbation (principal); Z20.822 Contact with and (suspected) exposure to COVID-19; D64.9 Anemia, unspecified; I13.0 Hypertensive heart and chronic kidney disease with heart failure and stage 1 through stage 4 chronic kidney disease, or unspecified chronic kidney disease; E11.22 Type 2 diabetes mellitus with diabetic chronic kidney disease; N18.9 Chronic kidney disease, unspecified; Z79.4 Long term (current) use of insulin; Z79.899 Other long term (current) drug therapy; Z88.8 Allergy status to other drugs, medicaments and biological substances; Z79.1 Long term (current) use of non-steroidal anti-inflammatories (NSAID)
CPT/HCPCS: 36415; 71045; 80048; 83690; 83880; 84484; 85025; 87426; 87804; 93005; 94640; 96374; 96375; 96376; 99285; J2270; J2405; Q0092

== ENCOUNTER 2023-04-30 00:59 | Emergency (ER) | payer MEDICAID ==
[~2023-04-30] VITALS: Ht 172.7 cm; Wt 122.0 kg
[~2023-04-30 00:59] MED LIST changes: +ALBU0.0912 INH; +BENZ200C4 PO; +PROM118S5 PO; +SPIMDI INH
[2023-04-30 01:05] VITALS: BP 150/100; PULSE 90; RESP 22; TEMP 97.7; O2SAT 97
[2023-04-30 01:51] VITALS: BP 167/106
[2023-04-30] MEDS: MORPHINE SULFATE 4 MG/ML SYR IM ONE ×2 (02:42→02:46)
[2023-04-30] MEDS ORDERED: HYDROcodone/APAP 5/325 MG 1 TAB TAB PO ONE (02:45)
[2023-04-30] MEDS ORDERED: ALBUTEROL SULFATE/IPRATROPIU 3 ML SOL IH ONE (02:50)
[2023-04-30 02:59] VITALS: PULSE 99; RESP 18; O2SAT 94
== END 2023-04-30 04:54 | disposition home or self-care (01) ==
LOC: MED 00:59
DX: R07.9 Chest pain, unspecified (principal); M79.89 Other specified soft tissue disorders; I13.0 Hypertensive heart and chronic kidney disease with heart failure and stage 1 through stage 4 chronic kidney disease, or unspecified chronic kidney disease; E11.22 Type 2 diabetes mellitus with diabetic chronic kidney disease; N18.9 Chronic kidney disease, unspecified; J44.9 Chronic obstructive pulmonary disease, unspecified; Z79.4 Long term (current) use of insulin; Z79.899 Other long term (current) drug therapy; Z88.8 Allergy status to other drugs, medicaments and biological substances; Z79.1 Long term (current) use of non-steroidal anti-inflammatories (NSAID)
CPT/HCPCS: 93005; 94640; 96372; 99283; J2270

== ENCOUNTER 2023-05-12 23:43 | Observation (INO) | payer MEDICAID ==
[~2023-05-12] VITALS: Ht 172.7 cm; Wt 121.6 kg
[2023-05-12 23:49] VITALS: BP 169/101; PULSE 101; RESP 20; TEMP 97.4; O2SAT 98
[2023-05-13] VITALS (8 sets, daily range): BP systolic 139–166; BP diastolic 78–94; PULSE 72–107; RESP 16–20; TEMP 97.5–98.2; O2SAT 97–100
[2023-05-13 01:04] LABS: HEMATOCRIT 33.8 % (36-48); HEMOGLOBIN 10.5 g/dL (12.0-16.0); MEAN CORPUSCULAR HEMOGLOBIN 22 pg (27-31); MEAN CORPUSCULAR HGB CONC 31 g/dL (33-37); MEAN CORPUSCULAR VOLUME 69.6 fL (80-94); PLATELET COUNT (AUTO) 235 K/uL (140-450); RED BLOOD CELL COUNT(AUTO) 4.86 MIL/uL (4.20-5.40); RED CELL DISTRIBUTION WIDTH 19.8 % (11.6-13.7); WHITE BLOOD COUNT (AUTO) 6.4 K/uL (4.8-10.8)
[2023-05-13] MEDS: MORPHINE SULFATE 4 MG/ML SYR IVP ONE ×2 (01:11→05:31)
[2023-05-13 01:25] LABS: ALBUMIN 2.6 g/dL (3.4-5.0); CALCIUM 8.2 mg/dL (8.5-10.1); CARBON DIOXIDE 34.1 mmol/L (21-32); CREATININE 1.4 mg/dL (0.6-1.3); POTASSIUM 4.1 mmol/L (3.5-5.1); TOTAL BILIRUBIN 0.4 mg/dL (0.0-1.0); TOTAL PROTEIN, SERUM 7.9 g/dL (6.4-8.2)
[2023-05-13 01:40] LABS: FLU A ANTIGEN negative (NEGATIVE); FLU B ANTIGEN negative (NEGATIVE)
[2023-05-13 01:41] LABS: EOSINOPHILS % (MANUAL) 3 % (0-4); LYMPHOCYTES % (MANUAL) 27 % (20-46); MONOCYTES % (MANUAL) 4 % (5-12)
[2023-05-13] MEDS: ONDANSETRON 4 MG/2 ML VIAL IVP ONE (03:58)
[2023-05-13] MEDS: NITROGLYCERIN 0.4 MG TAB SL ONE (04:38)
[2023-05-13] MEDS: ALBUTEROL SULFATE/IPRATROPIU 3 ML SOL IH ONE (04:41)
[2023-05-13] MEDS ORDERED: ACETAMINOPHEN 325 MG TAB PO PRN (05:15)
[2023-05-13] MEDS ORDERED: HYDROcodone/APAP 5/325 MG 1 TAB TAB PO PRN (05:15)
[2023-05-13] MEDS ORDERED: LORazepam 1 MG TAB PO PRN (05:15)
[2023-05-13] MEDS ORDERED: DEXTROSE 50% 50 ML SYR IVP PRN (05:20)
[2023-05-13] MEDS ORDERED: hydrALAZINE 20 MG/ML VIAL IVP PRN (05:20)
[2023-05-13] MEDS: BLOOD GLUCOSE MONITORING 1 DEV DEV FS SCH (07:48)
[2023-05-13] MEDS: INSULIN LISPRO SLIDING SCALE 100 UNITS/ML VIAL SUBQ PRN (08:08)
[2023-05-13] MEDS: FUROSEMIDE 100 MG/10 ML VIAL IVP SCH (10:44)
[2023-05-13] MEDS: MORPHINE SULFATE 4 MG/ML SYR IVP PRN (11:31)
[2023-05-13] MEDS: hydrALAZINE 25 MG TAB PO SCH (16:47)
[2023-05-13] MEDS: ATORVASTATIN 20 MG TAB PO SCH (20:40)
[2023-05-13] MEDS: ZOLPIDEM 5 MG TAB PO PRN (20:40)
[2023-05-13] MEDS: carvediloL 12.5 MG TAB PO SCH (20:40)
[2023-05-13] MEDS: APIXABAN 2.5 MG TAB PO SCH (20:42)
[2023-05-13] MEDS: INSULIN LANTUS 100 UNITS/ML 10 ML VIAL SUBQ SCH (20:55)
[2023-05-14] VITALS: BP 143/77; PULSE 72; PULSE 78; RESP 19; TEMP 97.2; O2SAT 99
[2023-05-14 04:00] VITALS: BP 146/84; PULSE 78; RESP 20; TEMP 97.7; O2SAT 99
[2023-05-14 07:19] LABS: BASOPHILS # (AUTO) 0.1 K/uL (0.00-0.22); EOSINOPHILS # (AUTO) 0.2 K/uL (0-0.4); EOSINOPHILS % (AUTO) 4.1 % (0.0-4.0); HEMATOCRIT 34.9 % (36-48); HEMOGLOBIN 10.9 g/dL (12.0-16.0); LYMPHOCYTES # (AUTO) 1.8 K/uL (2.5-16.5); LYMPHOCYTES % (AUTO) 31.8 % (20.5-51.1); MEAN CORPUSCULAR HEMOGLOBIN 22 pg (27-31); MEAN CORPUSCULAR HGB CONC 31 g/dL (33-37); MEAN CORPUSCULAR VOLUME 69.3 fL (80-94); MONOCYTES # (AUTO) 0.4 K/uL (0.8-1.0); MONOCYTES % (AUTO) 7.1 % (1.7-9.3); NEUTROPHILS # (AUTO) 3.1 K/uL (1.8-7.7); RED BLOOD CELL COUNT(AUTO) 5.03 MIL/uL (4.20-5.40); RED CELL DISTRIBUTION WIDTH 19.7 % (11.6-13.7); WHITE BLOOD COUNT (AUTO) 5.7 K/uL (4.8-10.8)
[2023-05-14 07:51] LABS: PLATELET COUNT (AUTO) 164 K/uL (140-450)
[2023-05-14 07:56] VITALS: O2SAT 99
[2023-05-14 08:00] VITALS: BP 149/99; PULSE 75; PULSE 77; PULSE 78; RESP 20; TEMP 97.4; O2SAT 100; O2SAT 99
[2023-05-14] MEDS: ASPIRIN 81 MG TAB.CHEW PO SCH (09:07)
[2023-05-14] MEDS: lisinopriL 5 MG TAB PO SCH (09:07)
[2023-05-14] MEDS: SPIRONOLACTONE 25 MG TAB PO SCH (09:07)
[2023-05-14] MEDS: ONDANSETRON 4 MG/2 ML VIAL IVP PRN (09:10)
[2023-05-14 09:55] LABS: ANION GAP 11.2 (8-16); CALCIUM 7.9 mg/dL (8.5-10.1); CARBON DIOXIDE 34.9 mmol/L (21-32); CREATININE 1.5 mg/dL (0.6-1.3); POTASSIUM 4.1 mmol/L (3.5-5.1)
[2023-05-14 12:00] VITALS: BP 95/51; PULSE 71; PULSE 75; RESP 20; TEMP 97.8; O2SAT 100
[2023-05-14] MEDS ORDERED: ALBUTEROL SULFATE/IPRATROPIU 3 ML SOL IH PRN (12:10)
[2023-05-14] MEDS: MAGNESIUM OXIDE 400 MG TAB PO ONE (16:17)
[2023-05-14 16:18] VITALS: BP 95/51; PULSE 75; RESP 20; TEMP 97.8
== END 2023-05-14 17:15 | disposition home or self-care (01) ==
LOC: MED 23:43 → MTU 05-13 05:18
PROVIDERS: ADMIT Hospitalist; ATTEND Hospitalist
DX: I13.0 Hypertensive heart and chronic kidney disease with heart failure and stage 1 through stage 4 chronic kidney disease, or unspecified chronic kidney disease (principal); Z20.822 Contact with and (suspected) exposure to COVID-19; E11.22 Type 2 diabetes mellitus with diabetic chronic kidney disease; I50.23 Acute on chronic systolic (congestive) heart failure; N18.30 Chronic kidney disease, stage 3 unspecified; I48.0 Paroxysmal atrial fibrillation; G47.33 Obstructive sleep apnea (adult) (pediatric); E11.65 Type 2 diabetes mellitus with hyperglycemia; I27.20 Pulmonary hypertension, unspecified; I42.9 Cardiomyopathy, unspecified; G89.4 Chronic pain syndrome; M94.0 Chondrocostal junction syndrome [Tietze]; J44.1 Chronic obstructive pulmonary disease with (acute) exacerbation; J81.1 Chronic pulmonary edema; Z79.899 Other long term (current) drug therapy
CPT/HCPCS: 36415; 71045; 71275; 80048; 80053; 82948; 83036; 83735; 83880; 84484; 85025; 85379; 87081; 87426; 87804; 94640; 94760; 96372; 96374; 96375; 96376; 99291; G0378; J1815; J1940; J2270; J2405; Q0092; Q9967

== ENCOUNTER 2023-05-24 09:44 | Inpatient (IN) | payer MEDICAID ==
[~2023-05-24] VITALS: Ht 172.7 cm; Wt 121.1 kg
[2023-05-24 10:03] VITALS: BP 165/93; PULSE 94; RESP 18; TEMP 97.8; O2SAT 93
[2023-05-24] MEDS: ONDANSETRON 4 MG/2 ML VIAL IVP ONE (11:43)
[2023-05-24] MEDS: MORPHINE SULFATE 2 MG/ML SYR IVP ONE (11:50)
[2023-05-24 11:53] LABS: HEMATOCRIT 34.2 % (36-48); HEMOGLOBIN 10.8 g/dL (12.0-16.0); MEAN CORPUSCULAR HEMOGLOBIN 22 pg (27-31); MEAN CORPUSCULAR HGB CONC 32 g/dL (33-37); MEAN CORPUSCULAR VOLUME 68.9 fL (80-94); PLATELET COUNT (AUTO) 295 K/uL (140-450); RED BLOOD CELL COUNT(AUTO) 4.96 MIL/uL (4.20-5.40); RED CELL DISTRIBUTION WIDTH 19.9 % (11.6-13.7); WHITE BLOOD COUNT (AUTO) 5.5 K/uL (4.8-10.8)
[2023-05-24 12:03] LABS: ANION GAP 11.8 (8-16); CALCIUM 9.1 mg/dL (8.5-10.1); CARBON DIOXIDE 28.6 mmol/L (21-32); CREATININE 1.5 mg/dL (0.6-1.3); POTASSIUM 4.4 mmol/L (3.5-5.1)
[2023-05-24 12:27] LABS: INR 1.07 (0.8-1.2); PARTIAL THROMBOPLASTIN TIME 26.2 secs (22-35.6); PROTHROMBIN TIME 11.2 secs (10.8-13.4)
[2023-05-24 12:36] LABS: APPEARANCE,URINE CLEAR (CLEAR); BILIRUBIN,URINE NEGATIVE (NEGATIVE); BLOOD, URINE 2+ (NEGATIVE); COLOR,URINE YELLOW (YELLOW); LEUKOCYTE ESTERASE ,URINE NEGATIVE (NEGATIVE); NITRITE, URINE NEGATIVE (NEGATIVE); PROTEIN,URINE 2+ (NEGATIVE); UGLUCOSE 1+ (NEGATIVE)
[2023-05-24 12:36] LABS: BASOPHILS % (MANUAL) 0 % (0-2); BLASTS, MANUAL % 0 % (0-0); EOSINOPHILS % (MANUAL) 5 % (0-4); LYMPHOCYTES % (MANUAL) 25 % (20-46); METAMYELOCYTES % 0 % (0-0); MONOCYTES % (MANUAL) 10 % (5-12); MYELOCYTES % 0 % (0-0); OTHER CELLS,MANUAL % 0 (0-0); PROMYELOCYTES % 0 % (0-0)
[2023-05-24 12:37] LABS: ANISOCYTOSIS 2+; PLASMA CELLS 0; PLATELET ESTIMATE ADEQUATE
[2023-05-24 13:56] LABS: BACTERIA,URINE 0-2 /HPF (None Seen); MUCUS,URINE 1+ /LPF (None Seen); RBC,URINE 11-20 (MOD) /HPF (0-5); SQUAMOUS EPITHELIAL CELL,UR 0-3 (FEW) /LPF (0-3 (FEW)); WBC,URINE 0-5 /HPF (0-5)
[2023-05-24] MEDS ORDERED: HYDROcodone/APAP 5/325 MG 1 TAB TAB PO PRN (15:30)
[2023-05-24] MEDS ORDERED: ZOLPIDEM 5 MG TAB PO PRN (15:30)
[2023-05-24] MEDS ORDERED: LORazepam 1 MG TAB PO PRN (15:30)
[2023-05-24] MEDS ORDERED: KCL 20 MEQ IN 100 mL PREMIX 200 ML IV PRN (15:30)
[2023-05-24] MEDS ORDERED: POTASSIUM CHLORIDE 10 MEQ TABER PO PRN (15:30)
[2023-05-24] MEDS ORDERED: ACETAMINOPHEN 325 MG TAB PO PRN (15:30)
[2023-05-24] MEDS: MORPHINE SULFATE 4 MG/ML SYR IVP PRN (17:04)
[2023-05-24] MEDS: BUMETANIDE 1 MG/4 ML VIAL IV SCH (17:11)
[2023-05-24 22:50] VITALS: O2SAT 94
[2023-05-25 07:25] LABS: BASOPHILS # (AUTO) 0.1 K/uL (0.00-0.22); BASOPHILS % (AUTO) 1.6 % (0.0-2.0); EOSINOPHILS # (AUTO) 0.3 K/uL (0-0.4); HEMATOCRIT 34.2 % (36-48); HEMOGLOBIN 10.7 g/dL (12.0-16.0); LYMPHOCYTES # (AUTO) 1.9 K/uL (2.5-16.5); LYMPHOCYTES % (AUTO) 43.1 % (20.5-51.1); MEAN CORPUSCULAR HEMOGLOBIN 22 pg (27-31); MEAN CORPUSCULAR HGB CONC 31 g/dL (33-37); MEAN CORPUSCULAR VOLUME 69.3 fL (80-94); MONOCYTES # (AUTO) 0.4 K/uL (0.8-1.0); NEUTROPHILS # (AUTO) 1.8 K/uL (1.8-7.7); NEUTROPHILS % (AUTO) 40.3 % (42.2-75.2); PLATELET COUNT (AUTO) 280 K/uL (140-450); RED BLOOD CELL COUNT(AUTO) 4.94 MIL/uL (4.20-5.40); RED CELL DISTRIBUTION WIDTH 20.1 % (11.6-13.7); WHITE BLOOD COUNT (AUTO) 4.4 K/uL (4.8-10.8)
[2023-05-25 07:31] LABS: ANION GAP 7.7 (8-16); CALCIUM 8.6 mg/dL (8.5-10.1); CARBON DIOXIDE 31.4 mmol/L (21-32); CREATININE 1.7 mg/dL (0.6-1.3); POTASSIUM 4.1 mmol/L (3.5-5.1)
[2023-05-25 11:11] VITALS: RESP 18; O2SAT 96
[2023-05-25 12:00] VITALS: BP 153/87; PULSE 86; RESP 18; TEMP 96.5; O2SAT 96
[2023-05-25] MEDS: MAG SULF 2000 MG/WATER PREMIX 50 ML IV PRN (12:05)
[2023-05-25] MEDS ORDERED: DEXTROSE 50% 50 ML SYR IVP PRN ×2 (13:35→13:40)
[2023-05-25] MEDS ORDERED: INSULIN LISPRO SLIDING SCALE 100 UNITS/ML VIAL SUBQ PRN (13:35)
[2023-05-25 16:00] VITALS: BP 146/83; RESP 18; TEMP 98; O2SAT 94
[2023-05-25] MEDS: BLOOD GLUCOSE MONITORING 1 DEV DEV FS SCH (16:30)
[2023-05-25] MEDS ORDERED: BLOOD GLUCOSE MONITORING 1 DEV DEV FS SCH (16:30)
[2023-05-25] MEDS: BUMETANIDE 1 MG/4 ML VIAL IV SCH (17:27)
[2023-05-25] MEDS: INSULIN LISPRO SLIDING SCALE 100 UNITS/ML VIAL SUBQ PRN (17:31)
[2023-05-25 20:00] VITALS: BP 172/103; PULSE 90; PULSE 94; RESP 18; TEMP 96.9; O2SAT 92; O2SAT 94
[2023-05-25] MEDS: APIXABAN 2.5 MG TAB PO SCH (21:08)
[2023-05-25] MEDS: carvediloL 12.5 MG TAB PO SCH (21:09)
[2023-05-25] MEDS ORDERED: hydrALAZINE 20 MG/ML VIAL IVP PRN (21:20)
[2023-05-25] MEDS: ONDANSETRON 4 MG/2 ML VIAL IVP PRN (22:47)
[2023-05-26 07:22] LABS: BASOPHILS # (AUTO) 0.1 K/uL (0.00-0.22); BASOPHILS % (AUTO) 1.6 % (0.0-2.0); EOSINOPHILS # (AUTO) 0.4 K/uL (0-0.4); EOSINOPHILS % (AUTO) 7.5 % (0.0-4.0); HEMATOCRIT 36.2 % (36-48); HEMOGLOBIN 11.2 g/dL (12.0-16.0); LYMPHOCYTES # (AUTO) 1.6 K/uL (2.5-16.5); MEAN CORPUSCULAR HEMOGLOBIN 22 pg (27-31); MEAN CORPUSCULAR HGB CONC 31 g/dL (33-37); MEAN CORPUSCULAR VOLUME 69.8 fL (80-94); MONOCYTES # (AUTO) 0.5 K/uL (0.8-1.0); MONOCYTES % (AUTO) 8.8 % (1.7-9.3); NEUTROPHILS # (AUTO) 2.9 K/uL (1.8-7.7); NEUTROPHILS % (AUTO) 53.1 % (42.2-75.2); PLATELET COUNT (AUTO) 314 K/uL (140-450); RED BLOOD CELL COUNT(AUTO) 5.19 MIL/uL (4.20-5.40); RED CELL DISTRIBUTION WIDTH 20.7 % (11.6-13.7); WHITE BLOOD COUNT (AUTO) 5.5 K/uL (4.8-10.8)
[2023-05-26 07:39] LABS: ANION GAP 11.8 (8-16); CALCIUM 8.9 mg/dL (8.5-10.1); CARBON DIOXIDE 33.4 mmol/L (21-32); CREATININE 1.8 mg/dL (0.6-1.3); POTASSIUM 4.2 mmol/L (3.5-5.1)
[2023-05-26 08:00] VITALS: BP 156/90; PULSE 67; RESP 18; TEMP 96.5; O2SAT 94; O2SAT 95
[2023-05-26] MEDS: ATORVASTATIN 20 MG TAB PO SCH (09:06)
[2023-05-26] MEDS: lisinopriL 5 MG TAB PO SCH ×2 (09:07→21:16)
[2023-05-26] MEDS: SPIRONOLACTONE 25 MG TAB PO SCH (09:08)
[2023-05-26] MEDS: ECOTRIN 81 MG TABEC PO SCH (09:09)
[2023-05-26 16:00] VITALS: BP 156/90; PULSE 63; RESP 18; TEMP 97; O2SAT 99
[2023-05-26] MEDS ORDERED: hydrALAZINE 25 MG TAB PO PRN (16:10)
[2023-05-26 20:57] VITALS: BP 129/64; PULSE 75; RESP 20; TEMP 98.2; O2SAT 95
[2023-05-26] MEDS: carvediloL 12.5 MG TAB PO SCH (21:18)
[2023-05-27 06:00] VITALS: BP 138/72; PULSE 72; RESP 18; TEMP 98.3; O2SAT 98
[2023-05-27 07:04] LABS: BASOPHILS # (AUTO) 0.1 K/uL (0.00-0.22); BASOPHILS % (AUTO) 1.6 % (0.0-2.0); EOSINOPHILS # (AUTO) 0.4 K/uL (0-0.4); EOSINOPHILS % (AUTO) 7.4 % (0.0-4.0); HEMOGLOBIN 10.3 g/dL (12.0-16.0); LYMPHOCYTES # (AUTO) 1.3 K/uL (2.5-16.5); LYMPHOCYTES % (AUTO) 24.8 % (20.5-51.1); MEAN CORPUSCULAR HEMOGLOBIN 21 pg (27-31); MEAN CORPUSCULAR HGB CONC 31 g/dL (33-37); MEAN CORPUSCULAR VOLUME 68.7 fL (80-94); MONOCYTES # (AUTO) 0.4 K/uL (0.8-1.0); MONOCYTES % (AUTO) 8.2 % (1.7-9.3); PLATELET COUNT (AUTO) 303 K/uL (140-450); RED BLOOD CELL COUNT(AUTO) 4.81 MIL/uL (4.20-5.40); RED CELL DISTRIBUTION WIDTH 20.3 % (11.6-13.7); WHITE BLOOD COUNT (AUTO) 5.2 K/uL (4.8-10.8)
[2023-05-27 07:18] LABS: ANION GAP 9.8 (8-16); CALCIUM 8.4 mg/dL (8.5-10.1); CARBON DIOXIDE 30.2 mmol/L (21-32); CREATININE 1.6 mg/dL (0.6-1.3)
[2023-05-27 08:00] VITALS: BP 141/67; PULSE 67; PULSE 72; RESP 18; TEMP 97.9; O2SAT 90; O2SAT 95
[2023-05-27] MEDS ORDERED: LANTUS SUBQ (08:41)
[2023-05-27 13:40] VITALS: BP 141/67; PULSE 72; RESP 18; TEMP 97.9
[2023-05-27] MEDS ORDERED: BUMETANIDE 1 MG TAB PO SCH (17:00)
== END 2023-05-27 15:32 | disposition home or self-care (01) | DRG 194 ==
LOC: MED 09:44 → MTU 15:29 → OBSVTOIN 05-25 10:15
PROVIDERS: ADMIT Internal Medicine; ATTEND Internal Medicine
DX: I13.0 Hypertensive heart and chronic kidney disease with heart failure and stage 1 through stage 4 chronic kidney disease, or unspecified chronic kidney disease (principal); R65.10 Systemic inflammatory response syndrome (SIRS) of non-infectious origin without acute organ dysfunction; E11.22 Type 2 diabetes mellitus with diabetic chronic kidney disease; I50.23 Acute on chronic systolic (congestive) heart failure; N18.9 Chronic kidney disease, unspecified; E66.9 Obesity, unspecified; I25.5 Ischemic cardiomyopathy; I16.0 Hypertensive urgency; I48.0 Paroxysmal atrial fibrillation; J44.9 Chronic obstructive pulmonary disease, unspecified; I44.7 Left bundle-branch block, unspecified; E78.5 Hyperlipidemia, unspecified; Z79.4 Long term (current) use of insulin; Z79.82 Long term (current) use of aspirin; Z88.8 Allergy status to other drugs, medicaments and biological substances; Z79.899 Other long term (current) drug therapy; Z68.41 Body mass index [BMI] 40.0-44.9, adult; Z79.51 Long term (current) use of inhaled steroids
CPT/HCPCS: 99285; G0378; 36415; 71045; 80048; 81001; 82948; 83735; 83880; 84484; 85025; 85610; 85730; 87081; 93005; 96372; 96375; 96376; J1815; J2270; J2405; J3475; J3490

== ENCOUNTER 2023-06-06 16:05 | Emergency (ER) | payer MEDICAID ==
[~2023-06-06] VITALS: Ht 172.7 cm; Wt 122.0 kg
[~2023-06-06 16:05] MED LIST changes: -BENZ200C4 PO
[2023-06-06 16:36] VITALS: BP 160/96; PULSE 89; RESP 18; TEMP 97.8; O2SAT 98
[2023-06-06 17:30] LABS: BASOPHILS # (AUTO) 0.2 K/uL (0.00-0.22); BASOPHILS % (AUTO) 3.6 % (0.0-2.0); EOSINOPHILS # (AUTO) 0.2 K/uL (0-0.4); EOSINOPHILS % (AUTO) 5.1 % (0.0-4.0); HEMOGLOBIN 10.6 g/dL (12.0-16.0); LYMPHOCYTES # (AUTO) 1.3 K/uL (2.5-16.5); LYMPHOCYTES % (AUTO) 30.8 % (20.5-51.1); MEAN CORPUSCULAR HEMOGLOBIN 22 pg (27-31); MEAN CORPUSCULAR HGB CONC 32 g/dL (33-37); MEAN CORPUSCULAR VOLUME 67.7 fL (80-94); MONOCYTES # (AUTO) 0.3 K/uL (0.8-1.0); MONOCYTES % (AUTO) 7.3 % (1.7-9.3); NEUTROPHILS # (AUTO) 2.3 K/uL (1.8-7.7); NEUTROPHILS % (AUTO) 53.2 % (42.2-75.2); PLATELET COUNT (AUTO) 245 K/uL (140-450); RED BLOOD CELL COUNT(AUTO) 4.88 MIL/uL (4.20-5.40); RED CELL DISTRIBUTION WIDTH 19.6 % (11.6-13.7); WHITE BLOOD COUNT (AUTO) 4.3 K/uL (4.8-10.8)
[2023-06-06 17:44] LABS: ANION GAP 11.2 (8-16); CALCIUM 8.1 mg/dL (8.5-10.1); CARBON DIOXIDE 27.9 mmol/L (21-32); CREATININE 1.3 mg/dL (0.6-1.3); POTASSIUM 4.1 mmol/L (3.5-5.1)
[2023-06-06] MEDS: FUROSEMIDE 40 MG/4 ML VIAL IVP ONE (18:08)
[2023-06-06] MEDS: ONDANSETRON 4 MG/2 ML VIAL IVP ONE (18:13)
[2023-06-06] MEDS: MORPHINE SULFATE 4 MG/ML SYR IVP ONE ×2 (18:15→20:30)
[2023-06-06 18:19] VITALS: TEMP 97.5
[2023-06-06 21:15] VITALS: BP 169/107; PULSE 94; RESP 20; O2SAT 100
== END 2023-06-06 21:10 | disposition home or self-care (01) ==
LOC: MED 16:05
DX: I21.4 Non-ST elevation (NSTEMI) myocardial infarction (principal); G89.29 Other chronic pain; J45.909 Unspecified asthma, uncomplicated; J44.9 Chronic obstructive pulmonary disease, unspecified; I13.0 Hypertensive heart and chronic kidney disease with heart failure and stage 1 through stage 4 chronic kidney disease, or unspecified chronic kidney disease; E11.22 Type 2 diabetes mellitus with diabetic chronic kidney disease; N28.9 Disorder of kidney and ureter, unspecified; Z79.4 Long term (current) use of insulin; Z79.899 Other long term (current) drug therapy; Z88.5 Allergy status to narcotic agent; Z79.1 Long term (current) use of non-steroidal anti-inflammatories (NSAID); Z88.8 Allergy status to other drugs, medicaments and biological substances
CPT/HCPCS: 36415; 71045; 80048; 83880; 84484; 85025; 93005; 96374; 96375; 96376; 99285; J1940; J2270; J2405

== ENCOUNTER 2023-06-08 21:06 | Inpatient (IN) | payer MEDICAID ==
[~2023-06-08] VITALS: Ht 172.7 cm; Wt 122.0 kg
[2023-06-08 21:08] VITALS: BP 182/119; PULSE 104; RESP 24; TEMP 97.4; O2SAT 100
[2023-06-08 21:30] VITALS: O2SAT 98
[2023-06-08 22:01] LABS: BASOPHILS # (AUTO) 0.1 K/uL (0.00-0.22); BASOPHILS % (AUTO) 2.3 % (0.0-2.0); EOSINOPHILS # (AUTO) 0.2 K/uL (0-0.4); EOSINOPHILS % (AUTO) 3.6 % (0.0-4.0); HEMATOCRIT 33.5 % (36-48); HEMOGLOBIN 10.7 g/dL (12.0-16.0); LYMPHOCYTES # (AUTO) 1.6 K/uL (2.5-16.5); LYMPHOCYTES % (AUTO) 32.3 % (20.5-51.1); MEAN CORPUSCULAR HEMOGLOBIN 22 pg (27-31); MEAN CORPUSCULAR HGB CONC 32 g/dL (33-37); MEAN CORPUSCULAR VOLUME 68.1 fL (80-94); MONOCYTES # (AUTO) 0.4 K/uL (0.8-1.0); MONOCYTES % (AUTO) 8.1 % (1.7-9.3); NEUTROPHILS # (AUTO) 2.7 K/uL (1.8-7.7); NEUTROPHILS % (AUTO) 53.7 % (42.2-75.2); PLATELET COUNT (AUTO) 230 K/uL (140-450); RED BLOOD CELL COUNT(AUTO) 4.91 MIL/uL (4.20-5.40); RED CELL DISTRIBUTION WIDTH 20.4 % (11.6-13.7); WHITE BLOOD COUNT (AUTO) 5.1 K/uL (4.8-10.8)
[2023-06-08 22:16] LABS: ANION GAP 9.5 (8-16); CARBON DIOXIDE 30.8 mmol/L (21-32); CREATININE 1.6 mg/dL (0.6-1.3); POTASSIUM 4.3 mmol/L (3.5-5.1)
[2023-06-08 22:24] LABS: ALBUMIN 2.8 g/dL (3.4-5.0); BILIRUBIN,DIRECT 0.2 mg/dL (0.0-0.3); TOTAL BILIRUBIN 0.5 mg/dL (0.0-1.0)
[2023-06-08] MEDS: MORPHINE SULFATE 4 MG/ML SYR IVP ONE (22:43)
[2023-06-08] MEDS: ONDANSETRON 4 MG/2 ML VIAL IVP ONE (22:44)
[2023-06-08] MEDS: NITROGLYCERIN 0.4 MG TAB SL ONE (22:51)
[2023-06-08] MEDS: NITROGLYCERIN 2% 1 GM PKT TP ONE (22:54)
[2023-06-08] MEDS: FUROSEMIDE 40 MG/4 ML VIAL IVP ONE (23:38)
[2023-06-09] VITALS (8 sets, daily range): BP systolic 130–175; BP diastolic 88–99; PULSE 80–116; RESP 18–20; TEMP 97.3–97.7; O2SAT 93–100
[2023-06-09] MEDS ORDERED: MAGNESIUM OXIDE 400 MG TAB PO PRN (00:40)
[2023-06-09] MEDS ORDERED: POTASSIUM CHLORIDE 10 MEQ TABER PO PRN (00:40)
[2023-06-09] MEDS ORDERED: ACETAMINOPHEN 325 MG TAB PO PRN (00:40)
[2023-06-09] MEDS ORDERED: MAG SULF 2000 MG/WATER PREMIX 50 ML IV PRN (00:40)
[2023-06-09] MEDS ORDERED: KCL 20 MEQ IN 100 mL PREMIX 200 ML IV PRN (00:40)
[2023-06-09] MEDS: ONDANSETRON 4 MG/2 ML VIAL IVP ONE (00:49)
[2023-06-09] MEDS: MORPHINE SULFATE 4 MG/ML SYR IVP ONE (00:53)
[2023-06-09] MEDS: ALBUTEROL SULFATE/IPRATROPIU 3 ML SOL IH SCH (01:00)
[2023-06-09] MEDS ORDERED: DEXTROSE 50% 50 ML SYR IVP PRN (03:10)
[2023-06-09] MEDS: MORPHINE SULFATE 4 MG/ML SYR IVP PRN (06:12)
[2023-06-09] MEDS: BLOOD GLUCOSE MONITORING 1 DEV DEV FS SCH (06:32)
[2023-06-09] MEDS: INSULIN LISPRO SLIDING SCALE 100 UNITS/ML VIAL SUBQ PRN (06:37)
[2023-06-09] MEDS: BUDESONIDE 0.5 MG/2 ML NEBU INH SCH (07:30)
[2023-06-09] MEDS: ONDANSETRON 4 MG/2 ML VIAL IVP PRN (09:05)
[2023-06-09] MEDS: METOCLOPRAMIDE 10 MG/2 ML INJ VIAL IVP SCH (17:57)
[2023-06-09] MEDS: FUROSEMIDE 40 MG/4 ML VIAL IVP SCH (17:57)
[2023-06-09] MEDS: hydrALAZINE 25 MG TAB PO SCH (20:04)
[2023-06-09] MEDS: carvediloL 12.5 MG TAB PO SCH (20:04)
[2023-06-09] MEDS: APIXABAN 2.5 MG TAB PO SCH (20:05)
[2023-06-09] MEDS: INSULIN LANTUS 100 UNITS/ML 10 ML VIAL SUBQ SCH (20:20)
[2023-06-10] VITALS: BP 146/100; PULSE 76; PULSE 78; RESP 21; TEMP 97.5; O2SAT 99
[2023-06-10 04:00] VITALS: BP 129/79; PULSE 72; PULSE 74; RESP 20; TEMP 97.3; O2SAT 95
[2023-06-10 07:06] VITALS: O2SAT 95
[2023-06-10 07:11] LABS: BASOPHILS # (AUTO) 0.1 K/uL (0.00-0.22); BASOPHILS % (AUTO) 1.7 % (0.0-2.0); EOSINOPHILS # (AUTO) 0.3 K/uL (0-0.4); HEMATOCRIT 33.1 % (36-48); HEMOGLOBIN 10.3 g/dL (12.0-16.0); LYMPHOCYTES # (AUTO) 1.8 K/uL (2.5-16.5); LYMPHOCYTES % (AUTO) 39.2 % (20.5-51.1); MEAN CORPUSCULAR HEMOGLOBIN 21 pg (27-31); MEAN CORPUSCULAR HGB CONC 31 g/dL (33-37); MEAN CORPUSCULAR VOLUME 68.4 fL (80-94); MONOCYTES # (AUTO) 0.4 K/uL (0.8-1.0); MONOCYTES % (AUTO) 8.4 % (1.7-9.3); NEUTROPHILS # (AUTO) 2.1 K/uL (1.8-7.7); NEUTROPHILS % (AUTO) 44.7 % (42.2-75.2); PLATELET COUNT (AUTO) 223 K/uL (140-450); RED BLOOD CELL COUNT(AUTO) 4.84 MIL/uL (4.20-5.40); WHITE BLOOD COUNT (AUTO) 4.6 K/uL (4.8-10.8)
[2023-06-10 07:49] LABS: ANION GAP 10.6 (8-16); CALCIUM 7.8 mg/dL (8.5-10.1); CARBON DIOXIDE 31.5 mmol/L (21-32); CREATININE 1.7 mg/dL (0.6-1.3); POTASSIUM 4.1 mmol/L (3.5-5.1)
[2023-06-10 07:51] LABS: MAGNESIUM 1.6 mg/dL (1.8-2.4); PHOSPHORUS 5.5 mg/dL (2.5-4.9)
[2023-06-10] MEDS: SPIRONOLACTONE 25 MG TAB PO SCH (10:07)
[2023-06-10] MEDS: ATORVASTATIN 20 MG TAB PO SCH (10:10)
[2023-06-10] MEDS: HYDROcodone/APAP 5/325 MG 1 TAB TAB PO PRN (12:08)
[2023-06-10] MEDS ORDERED: ONDA-188 SL (13:29)
[2023-06-10 14:47] VITALS: BP 129/79; PULSE 74; RESP 20; TEMP 97.3
[2023-06-10] MEDS ORDERED: ALBUTEROL SULFATE/IPRATROPIU 3 ML SOL IH PRN (15:05)
== END 2023-06-10 16:40 | disposition home or self-care (01) | DRG 198 ==
LOC: MED 21:06 → MTU 06-09 00:40
PROVIDERS: ADMIT Internal Medicine; ATTEND Internal Medicine
DX: R07.89 Other chest pain (principal); I25.2 Old myocardial infarction; I50.23 Acute on chronic systolic (congestive) heart failure; I13.0 Hypertensive heart and chronic kidney disease with heart failure and stage 1 through stage 4 chronic kidney disease, or unspecified chronic kidney disease; I42.9 Cardiomyopathy, unspecified; Z79.01 Long term (current) use of anticoagulants; E11.9 Type 2 diabetes mellitus without complications; E66.9 Obesity, unspecified; N18.30 Chronic kidney disease, stage 3 unspecified; J44.9 Chronic obstructive pulmonary disease, unspecified; Z68.41 Body mass index [BMI] 40.0-44.9, adult; I48.91 Unspecified atrial fibrillation; E78.5 Hyperlipidemia, unspecified; Z79.82 Long term (current) use of aspirin; Z79.4 Long term (current) use of insulin; Z79.899 Other long term (current) drug therapy; Z88.8 Allergy status to other drugs, medicaments and biological substances; I44.7 Left bundle-branch block, unspecified
CPT/HCPCS: 36415; 71045; 74021; 80048; 80076; 82948; 83735; 83880; 84100; 84484; 85025; 87081; 93005; 96374; 96375; 96376; 99285; J1644; J1815; J1940; J2270; J2405; J2765; J7626; Q0092

== ENCOUNTER 2023-06-12 13:14 | Emergency (ER) | payer MEDICAID ==
[~2023-06-12] VITALS: Ht 172.7 cm; Wt 81.6 kg
[~2023-06-12 13:14] MED LIST changes: +ONDA-188 SL; -PROM118S5 PO
[2023-06-12 13:31] VITALS: BP 160/100; PULSE 90; RESP 16; TEMP 98.1; O2SAT 98
[2023-06-12 13:57] LABS: BASOPHILS # (AUTO) 0.1 K/uL (0.00-0.22); BASOPHILS % (AUTO) 2.3 % (0.0-2.0); EOSINOPHILS # (AUTO) 0.2 K/uL (0-0.4); EOSINOPHILS % (AUTO) 5.1 % (0.0-4.0); HEMATOCRIT 32.7 % (36-48); HEMOGLOBIN 10.3 g/dL (12.0-16.0); LYMPHOCYTES # (AUTO) 1.2 K/uL (2.5-16.5); LYMPHOCYTES % (AUTO) 26.2 % (20.5-51.1); MEAN CORPUSCULAR HEMOGLOBIN 21 pg (27-31); MEAN CORPUSCULAR HGB CONC 32 g/dL (33-37); MEAN CORPUSCULAR VOLUME 67.7 fL (80-94); MONOCYTES # (AUTO) 0.5 K/uL (0.8-1.0); MONOCYTES % (AUTO) 10.3 % (1.7-9.3); NEUTROPHILS # (AUTO) 2.6 K/uL (1.8-7.7); NEUTROPHILS % (AUTO) 56.1 % (42.2-75.2); PLATELET COUNT (AUTO) 200 K/uL (140-450); RED BLOOD CELL COUNT(AUTO) 4.83 MIL/uL (4.20-5.40); RED CELL DISTRIBUTION WIDTH 20.4 % (11.6-13.7); WHITE BLOOD COUNT (AUTO) 4.6 K/uL (4.8-10.8)
[2023-06-12] MEDS: NITROGLYCERIN 0.4 MG TAB SL ONE (14:00)
[2023-06-12 14:12] LABS: CALCIUM 8.7 mg/dL (8.5-10.1); CREATININE 1.3 mg/dL (0.6-1.3)
[2023-06-12 14:21] LABS: ALBUMIN 2.9 g/dL (3.4-5.0); BILIRUBIN,DIRECT 0.2 mg/dL (0.0-0.3); TOTAL BILIRUBIN 0.4 mg/dL (0.0-1.0)
[2023-06-12] MEDS ORDERED: FUROSEMIDE 40 MG/4 ML VIAL IVP ONE (15:00)
[2023-06-12] MEDS ORDERED: MORPHINE SULFATE 4 MG/ML SYR IVP ONE (15:00)
[2023-06-12] MEDS ORDERED: ONDANSETRON 4 MG/2 ML VIAL IVP ONE (15:00)
[2023-06-12] MEDS: MORPHINE SULFATE 4 MG/ML SYR IM ONE (15:30)
[2023-06-12] MEDS: ONDANSETRON 4 MG ODT PO ONE (15:32)
[2023-06-12] MEDS: FUROSEMIDE 40 MG TAB PO ONE (15:32)
[2023-06-12 16:14] VITALS: BP 177/89; PULSE 93; RESP 16; TEMP 36.22512; O2SAT 97
== END 2023-06-12 16:14 | disposition home or self-care (01) ==
LOC: MED 13:14
DX: E11.22 Type 2 diabetes mellitus with diabetic chronic kidney disease (principal); I13.0 Hypertensive heart and chronic kidney disease with heart failure and stage 1 through stage 4 chronic kidney disease, or unspecified chronic kidney disease; N18.9 Chronic kidney disease, unspecified; I50.9 Heart failure, unspecified; R79.89 Other specified abnormal findings of blood chemistry; R07.9 Chest pain, unspecified; J44.9 Chronic obstructive pulmonary disease, unspecified; I25.2 Old myocardial infarction; I48.0 Paroxysmal atrial fibrillation; E78.5 Hyperlipidemia, unspecified; Z79.899 Other long term (current) drug therapy; Z79.4 Long term (current) use of insulin; Z79.82 Long term (current) use of aspirin; Z79.01 Long term (current) use of anticoagulants; Z88.8 Allergy status to other drugs, medicaments and biological substances; Z88.6 Allergy status to analgesic agent; Z88.5 Allergy status to narcotic agent
CPT/HCPCS: 36415; 71045; 80048; 80076; 83880; 84484; 85025; 93005; 96372; 99285; J1940; J2270; J2405; Q0162

== ENCOUNTER 2023-06-15 23:20 | Emergency (ER) | payer MEDICAID ==
[~2023-06-15] VITALS: Ht 172.7 cm; Wt 76.7 kg
[2023-06-15 23:25] VITALS: BP 146/98; PULSE 98; RESP 19; TEMP 98.2; O2SAT 95
[2023-06-16 01:05] VITALS: BP 170/102; PULSE 111; RESP 14; TEMP 98.2; O2SAT 91
[2023-06-16] MEDS ORDERED: ONDANSETRON 4 MG/2 ML VIAL ONE (01:25)
[2023-06-16] MEDS ORDERED: MORPHINE SULFATE 10 MG/ML VIAL ONE (01:26)
[2023-06-16] MEDS ORDERED: MORPHINE SULFATE 4 MG/ML SYR IVP ONE (02:50)
== END 2023-06-16 02:34 | disposition home or self-care (01) ==
LOC: MED 23:20
DX: G89.29 Other chronic pain (principal); R07.89 Other chest pain; R60.0 Localized edema; I25.2 Old myocardial infarction; J44.9 Chronic obstructive pulmonary disease, unspecified; E11.22 Type 2 diabetes mellitus with diabetic chronic kidney disease; I13.0 Hypertensive heart and chronic kidney disease with heart failure and stage 1 through stage 4 chronic kidney disease, or unspecified chronic kidney disease; N18.9 Chronic kidney disease, unspecified; I50.9 Heart failure, unspecified; E78.5 Hyperlipidemia, unspecified; I48.0 Paroxysmal atrial fibrillation; Z79.899 Other long term (current) drug therapy; Z79.4 Long term (current) use of insulin; Z79.82 Long term (current) use of aspirin; Z79.01 Long term (current) use of anticoagulants; Z88.8 Allergy status to other drugs, medicaments and biological substances; Z88.6 Allergy status to analgesic agent; Z88.4 Allergy status to anesthetic agent; Z88.5 Allergy status to narcotic agent
CPT/HCPCS: 93005; 99283; J2270; J2405

== ENCOUNTER 2023-06-17 19:20 | Emergency (ER) | payer MEDICAID ==
[~2023-06-17] VITALS: Ht 172.7 cm; Wt 122.0 kg
[2023-06-17 19:26] VITALS: BP 183/114; PULSE 98; RESP 16; TEMP 98.2; O2SAT 99
[2023-06-17] MEDS: MORPHINE SULFATE 4 MG/ML SYR IM ONE (19:45)
[2023-06-17 19:48] VITALS: BP 183/114; PULSE 98; RESP 16; TEMP 98.2; O2SAT 99
[2023-06-17] MEDS: FUROSEMIDE 40 MG/4 ML VIAL IVP ONE (20:00)
[2023-06-17] MEDS: MORPHINE SULFATE 4 MG/ML SYR IVP ONE (20:15)
[2023-06-17] MEDS: ONDANSETRON 4 MG/2 ML VIAL IVP ONE (20:20)
== END 2023-06-17 22:20 | disposition home or self-care (01) ==
LOC: MED 19:20
DX: R07.9 Chest pain, unspecified (principal); R60.0 Localized edema; I11.0 Hypertensive heart disease with heart failure; I50.9 Heart failure, unspecified; I25.2 Old myocardial infarction; J44.9 Chronic obstructive pulmonary disease, unspecified; E11.9 Type 2 diabetes mellitus without complications; Z87.448 Personal history of other diseases of urinary system; Z98.890 Other specified postprocedural states; Z79.899 Other long term (current) drug therapy; Z79.4 Long term (current) use of insulin; Z79.82 Long term (current) use of aspirin; Z79.01 Long term (current) use of anticoagulants; Z88.8 Allergy status to other drugs, medicaments and biological substances; Z88.6 Allergy status to analgesic agent; Z88.5 Allergy status to narcotic agent
CPT/HCPCS: 93005; 96372; 96374; 96375; 99284; J1940; J2270; J2405

== ENCOUNTER 2023-06-23 03:00 | Emergency (ER) | payer MEDICAID ==
[~2023-06-23] VITALS: Ht 167.6 cm; Wt 127.0 kg
[~2023-06-23 03:00] MED LIST changes: +PROM118S5 PO
[2023-06-23 03:08] VITALS: BP 179/118; PULSE 109; RESP 16; TEMP 98.7; O2SAT 99
[2023-06-23] MEDS ORDERED: ONDANSETRON 4 MG/2 ML VIAL ONE (03:27)
[2023-06-23] MEDS ORDERED: MORPHINE SULFATE 4 MG/ML SYR ONE (03:27)
[2023-06-23] MEDS: ONDANSETRON 4 MG/2 ML VIAL IVP ONE (03:29)
[2023-06-23] MEDS: MORPHINE SULFATE 4 MG/ML SYR IVP ONE ×2 (03:30→04:17)
[2023-06-23] MEDS: FUROSEMIDE 40 MG/4 ML VIAL IVP ONE (03:39)
[2023-06-23 04:46] VITALS: BP 172/118; PULSE 102; RESP 16; TEMP 98.7; O2SAT 99
== END 2023-06-23 04:30 | disposition home or self-care (01) ==
LOC: MED 03:00
DX: R07.9 Chest pain, unspecified (principal); R06.02 Shortness of breath; I11.0 Hypertensive heart disease with heart failure; R60.0 Localized edema; I50.9 Heart failure, unspecified; E11.9 Type 2 diabetes mellitus without complications; J45.909 Unspecified asthma, uncomplicated; I25.2 Old myocardial infarction; Z79.4 Long term (current) use of insulin; Z79.82 Long term (current) use of aspirin; Z79.899 Other long term (current) drug therapy; Z88.6 Allergy status to analgesic agent; Z88.8 Allergy status to other drugs, medicaments and biological substances
CPT/HCPCS: 96374; 96375; 96376; 99284; J1940; J2270; J2405

== ENCOUNTER 2023-06-25 09:10 | Emergency (ER) | payer MEDICAID ==
[~2023-06-25] VITALS: Ht 172.7 cm; Wt 122.0 kg
[~2023-06-25 09:10] MED LIST changes: -PROM118S5 PO
[2023-06-25 09:23] VITALS: BP 161/98; PULSE 101; RESP 20; TEMP 98; O2SAT 96
[2023-06-25] MEDS: MORPHINE SULFATE 10 MG/ML VIAL IVP ONE (10:05)
[2023-06-25 10:55] LABS: BASOPHILS # (AUTO) 0.1 K/uL (0.00-0.22); BASOPHILS % (AUTO) 2.4 % (0.0-2.0); EOSINOPHILS # (AUTO) 0.2 K/uL (0-0.4); EOSINOPHILS % (AUTO) 3.6 % (0.0-4.0); HEMATOCRIT 35.3 % (36-48); HEMOGLOBIN 10.8 g/dL (12.0-16.0); LYMPHOCYTES # (AUTO) 1.7 K/uL (2.5-16.5); LYMPHOCYTES % (AUTO) 33.4 % (20.5-51.1); MEAN CORPUSCULAR HEMOGLOBIN 21 pg (27-31); MEAN CORPUSCULAR HGB CONC 31 g/dL (33-37); MEAN CORPUSCULAR VOLUME 67.5 fL (80-94); MONOCYTES # (AUTO) 0.2 K/uL (0.8-1.0); MONOCYTES % (AUTO) 4.6 % (1.7-9.3); NEUTROPHILS # (AUTO) 2.9 K/uL (1.8-7.7); PLATELET COUNT (AUTO) 316 K/uL (140-450); RED BLOOD CELL COUNT(AUTO) 5.23 MIL/uL (4.20-5.40); RED CELL DISTRIBUTION WIDTH 20.5 % (11.6-13.7); WHITE BLOOD COUNT (AUTO) 5.2 K/uL (4.8-10.8)
[2023-06-25 11:14] LABS: CALCIUM 8.7 mg/dL (8.5-10.1); CARBON DIOXIDE 32.5 mmol/L (21-32); CREATININE 1.7 mg/dL (0.6-1.3); POTASSIUM 4.5 mmol/L (3.5-5.1)
[2023-06-25] MEDS: BUMETANIDE 1 MG/4 ML VIAL IV ONE ×2 (11:30→12:11)
[2023-06-25] MEDS ORDERED: BUMETANIDE 1 MG/4 ML VIAL IV SCH (11:45)
[2023-06-25] MEDS: MORPHINE SULFATE 4 MG/ML SYR IVP ONE (15:15)
[2023-06-25 15:35] VITALS: BP 187/99; PULSE 87; RESP 17; TEMP 98.5; O2SAT 96
== END 2023-06-25 15:35 | disposition home or self-care (01) ==
LOC: MED 09:10
DX: R07.9 Chest pain, unspecified (principal); G89.29 Other chronic pain; J45.909 Unspecified asthma, uncomplicated; J44.9 Chronic obstructive pulmonary disease, unspecified; I13.0 Hypertensive heart and chronic kidney disease with heart failure and stage 1 through stage 4 chronic kidney disease, or unspecified chronic kidney disease; E11.22 Type 2 diabetes mellitus with diabetic chronic kidney disease; N18.9 Chronic kidney disease, unspecified; Z79.4 Long term (current) use of insulin; Z79.1 Long term (current) use of non-steroidal anti-inflammatories (NSAID); Z88.8 Allergy status to other drugs, medicaments and biological substances; Z88.5 Allergy status to narcotic agent; Z79.899 Other long term (current) drug therapy
CPT/HCPCS: 36415; 71045; 80048; 83880; 84484; 85025; 96374; 96375; 96376; 99284; J2270; J3490; Q0092

== ENCOUNTER 2023-07-04 19:45 | Emergency (ER) | payer MEDICAID ==
[~2023-07-04] VITALS: Ht 172.7 cm; Wt 122.0 kg
[~2023-07-04 19:45] MED LIST changes: -HYDR-4420 PO; +HYDR-5856 PO
[2023-07-04 19:51] VITALS: BP 160/102; PULSE 104; RESP 20; TEMP 98.1; O2SAT 97
[2023-07-04 21:20] LABS: BASOPHILS # (AUTO) 0.1 K/uL (0.00-0.22); BASOPHILS % (AUTO) 2.9 % (0.0-2.0); EOSINOPHILS # (AUTO) 0.2 K/uL (0-0.4); EOSINOPHILS % (AUTO) 4.9 % (0.0-4.0); HEMATOCRIT 32.3 % (36-48); LYMPHOCYTES # (AUTO) 1.2 K/uL (2.5-16.5); LYMPHOCYTES % (AUTO) 25.4 % (20.5-51.1); MEAN CORPUSCULAR HEMOGLOBIN 21 pg (27-31); MEAN CORPUSCULAR HGB CONC 31 g/dL (33-37); MONOCYTES # (AUTO) 0.5 K/uL (0.8-1.0); MONOCYTES % (AUTO) 9.9 % (1.7-9.3); NEUTROPHILS # (AUTO) 2.8 K/uL (1.8-7.7); NEUTROPHILS % (AUTO) 56.9 % (42.2-75.2); PLATELET COUNT (AUTO) 277 K/uL (140-450); RED BLOOD CELL COUNT(AUTO) 4.82 MIL/uL (4.20-5.40); RED CELL DISTRIBUTION WIDTH 20.8 % (11.6-13.7); WHITE BLOOD COUNT (AUTO) 4.9 K/uL (4.8-10.8)
[2023-07-04 21:34] LABS: INR 0.98 (0.8-1.2); PARTIAL THROMBOPLASTIN TIME 25.2 secs (22-35.6); PROTHROMBIN TIME 10.3 secs (10.8-13.4)
[2023-07-04 21:35] LABS: ANION GAP 10.5 (8-16); CALCIUM 8.3 mg/dL (8.5-10.1); CARBON DIOXIDE 31.3 mmol/L (21-32); CREATININE 1.3 mg/dL (0.6-1.3); POTASSIUM 3.8 mmol/L (3.5-5.1)
[2023-07-04 21:41] LABS: ALANINE AMINOTRANSFERASE 14 U/L (12-78); ALBUMIN 2.7 g/dL (3.4-5.0); ALKALINE PHOSPHATASE 115 U/L (50-136); ASPARTATE AMINOTRANSFERASE 17 U/L (15-37); BILIRUBIN,DIRECT 0.1 mg/dL (0.0-0.3); TOTAL BILIRUBIN 0.3 mg/dL (0.0-1.0); TOTAL PROTEIN, SERUM 6.9 g/dL (6.4-8.2)
[2023-07-04] MEDS: MORPHINE SULFATE 10 MG/ML VIAL IVP ONE (22:22)
[2023-07-04] MEDS: BUMETANIDE 1 MG/4 ML VIAL IV STA (22:34)
[2023-07-04 23:45] VITALS: BP 131/86; PULSE 93; RESP 18; TEMP 98; O2SAT 95
== END 2023-07-04 23:45 | disposition home or self-care (01) ==
LOC: MED 19:45
DX: R07.9 Chest pain, unspecified (principal); G89.29 Other chronic pain; J45.909 Unspecified asthma, uncomplicated; J44.9 Chronic obstructive pulmonary disease, unspecified; I10 Essential (primary) hypertension; N28.9 Disorder of kidney and ureter, unspecified; E11.9 Type 2 diabetes mellitus without complications; Z79.4 Long term (current) use of insulin; Z79.899 Other long term (current) drug therapy; Z79.1 Long term (current) use of non-steroidal anti-inflammatories (NSAID); Z88.8 Allergy status to other drugs, medicaments and biological substances
CPT/HCPCS: 36415; 71045; 80048; 80076; 83880; 84484; 85025; 85610; 85730; 93005; 96374; 96375; 99285; J2270; J3490

== ENCOUNTER 2023-07-06 19:28 | Inpatient (IN) | payer MEDICAID ==
[~2023-07-06] VITALS: Ht 167.6 cm; Wt 90.7 kg
[~2023-07-06 19:28] MED LIST changes: +HYDR-4420 PO; -HYDR-5856 PO
[2023-07-06 19:30] VITALS: BP 172/101; PULSE 100; RESP 16; TEMP 98.1; O2SAT 97
[2023-07-06 20:57] LABS: BASOPHILS # (AUTO) 0.1 K/uL (0.00-0.22); BASOPHILS % (AUTO) 2.1 % (0.0-2.0); EOSINOPHILS # (AUTO) 0.2 K/uL (0-0.4); EOSINOPHILS % (AUTO) 3.7 % (0.0-4.0); HEMATOCRIT 32.8 % (36-48); HEMOGLOBIN 10.1 g/dL (12.0-16.0); LYMPHOCYTES # (AUTO) 1.6 K/uL (2.5-16.5); LYMPHOCYTES % (AUTO) 32.5 % (20.5-51.1); MEAN CORPUSCULAR HEMOGLOBIN 21 pg (27-31); MEAN CORPUSCULAR HGB CONC 31 g/dL (33-37); MEAN CORPUSCULAR VOLUME 67.1 fL (80-94); MONOCYTES # (AUTO) 0.4 K/uL (0.8-1.0); MONOCYTES % (AUTO) 7.6 % (1.7-9.3); NEUTROPHILS # (AUTO) 2.7 K/uL (1.8-7.7); NEUTROPHILS % (AUTO) 54.1 % (42.2-75.2); PLATELET COUNT (AUTO) 246 K/uL (140-450); RED BLOOD CELL COUNT(AUTO) 4.88 MIL/uL (4.20-5.40); RED CELL DISTRIBUTION WIDTH 20.5 % (11.6-13.7)
[2023-07-06] MEDS: MORPHINE SULFATE 4 MG/ML SYR IVP ONE (21:02)
[2023-07-06] MEDS: ONDANSETRON 4 MG/2 ML VIAL IVP ONE (21:02)
[2023-07-06 21:08] LABS: ANION GAP 11.8 (8-16); CALCIUM 8.6 mg/dL (8.5-10.1); CARBON DIOXIDE 29.3 mmol/L (21-32); CREATININE 1.5 mg/dL (0.6-1.3); POTASSIUM 4.1 mmol/L (3.5-5.1)
[2023-07-06 21:19] LABS: ALBUMIN 2.9 g/dL (3.4-5.0); BILIRUBIN,DIRECT 0.1 mg/dL (0.0-0.3); TOTAL BILIRUBIN 0.2 mg/dL (0.0-1.0); TOTAL PROTEIN, SERUM 7.2 g/dL (6.4-8.2)
[2023-07-06 21:21] LABS: LACTIC ACID 1.6 mmol/L (0.4-2.0)
[2023-07-06 21:33] LABS: FLU A ANTIGEN negative (NEGATIVE); FLU B ANTIGEN NEGATIVE (NEGATIVE)
[2023-07-06 21:42] LABS: INR 0.94 (0.8-1.2); PARTIAL THROMBOPLASTIN TIME 25.5 secs (22-35.6); PROTHROMBIN TIME 9.9 secs (10.8-13.4)
[2023-07-06] MEDS: ASPIRIN 325 MG TAB PO ONE (22:27)
[2023-07-06] MEDS ORDERED: CLONIDINE HYDROCHLORIDE 0.1 MG TAB PO PRN (22:35)
[2023-07-06] MEDS ORDERED: DEXTROSE 50% 50 ML SYR IVP PRN (22:50)
[2023-07-06] MEDS ORDERED: ACETAMINOPHEN 325 MG TAB PO PRN (22:55)
[2023-07-07] VITALS (10 sets, daily range): BP systolic 108–153; BP diastolic 69–100; PULSE 76–100; RESP 15–20; TEMP 97–97.6; O2SAT 97–100
[2023-07-07] MEDS: MORPHINE SULFATE 2 MG/ML SYR IVP PRN (00:15)
[2023-07-07] MEDS: hydrALAZINE 25 MG TAB PO SCH (06:06)
[2023-07-07 06:49] LABS: HEMATOCRIT 32.3 % (36-48); HEMOGLOBIN 9.8 g/dL (12.0-16.0); MEAN CORPUSCULAR HEMOGLOBIN 20 pg (27-31); MEAN CORPUSCULAR HGB CONC 30 g/dL (33-37); MEAN CORPUSCULAR VOLUME 67.3 fL (80-94); PLATELET COUNT (AUTO) 240 K/uL (140-450); RED CELL DISTRIBUTION WIDTH 20.3 % (11.6-13.7); WHITE BLOOD COUNT (AUTO) 5.1 K/uL (4.8-10.8)
[2023-07-07 06:56] LABS: ALBUMIN 2.8 g/dL (3.4-5.0); ANION GAP 11.3 (8-16); CALCIUM 8.4 mg/dL (8.5-10.1); CARBON DIOXIDE 29.9 mmol/L (21-32); CREATININE 1.4 mg/dL (0.6-1.3); MAGNESIUM 1.8 mg/dL (1.8-2.4); POTASSIUM 4.2 mmol/L (3.5-5.1); TOTAL BILIRUBIN 0.3 mg/dL (0.0-1.0); TOTAL PROTEIN, SERUM 6.9 g/dL (6.4-8.2)
[2023-07-07] MEDS: BLOOD GLUCOSE MONITORING 1 DEV DEV FS SCH (07:50)
[2023-07-07 07:53] LABS: EOSINOPHILS % (MANUAL) 7 % (0-4); LYMPHOCYTES % (MANUAL) 37 % (20-46); MONOCYTES % (MANUAL) 6 % (5-12)
[2023-07-07 07:54] LABS: PLATELET ESTIMATE ADEQUATE; POLYCHROMASIA 1+
[2023-07-07 07:55] LABS: OVALOCYTES 1+
[2023-07-07] MEDS: INSULIN LANTUS 100 UNITS/ML 10 ML VIAL SUBQ SCH (08:16)
[2023-07-07] MEDS: FUROSEMIDE 40 MG/4 ML VIAL IVP SCH (08:16)
[2023-07-07] MEDS: INSULIN LISPRO SLIDING SCALE 100 UNITS/ML VIAL SUBQ PRN (08:17)
[2023-07-07] MEDS: ASPIRIN 325 MG TABEC PO SCH (08:18)
[2023-07-07] MEDS: carvediloL 6.25 MG TAB PO SCH (08:18)
[2023-07-07] MEDS: ATORVASTATIN 20 MG TAB PO SCH (08:21)
[2023-07-07] MEDS: lisinopriL 5 MG TAB PO SCH (08:21)
[2023-07-07] MEDS: SPIRONOLACTONE 25 MG TAB PO SCH (08:30)
[2023-07-07] MEDS: APIXABAN 2.5 MG TAB PO SCH (08:30)
[2023-07-07] MEDS: BUMETANIDE 1 MG/4 ML VIAL IV SCH (17:05)
[2023-07-07] MEDS: ALBUTEROL 0.083% 2.5 MG/3 ML NEBU INH SCH (19:20)
[2023-07-07] MEDS: IPRATROPIUM 0.02% 0.5 MG/2.5 ML NEBU INH SCH (19:20)
[2023-07-07] MEDS ORDERED: methylPREDNISolone SS 40 MG/ML VIAL IVP SCH (21:00)
[2023-07-08] VITALS (14 sets, daily range): BP systolic 96–130; BP diastolic 54–78; PULSE 73–91; RESP 14–20; TEMP 97.3–98; O2SAT 92–100
[2023-07-08] MEDS: PREGABALIN 50 MG CAP PO SCH (08:48)
[2023-07-08 14:46] LABS: BASOPHILS # (AUTO) 0.1 K/uL (0.00-0.22); BASOPHILS % (AUTO) 1.8 % (0.0-2.0); EOSINOPHILS # (AUTO) 0.2 K/uL (0-0.4); HEMATOCRIT 31.1 % (36-48); HEMOGLOBIN 9.5 g/dL (12.0-16.0); LYMPHOCYTES # (AUTO) 1.1 K/uL (2.5-16.5); LYMPHOCYTES % (AUTO) 25.2 % (20.5-51.1); MEAN CORPUSCULAR HEMOGLOBIN 21 pg (27-31); MEAN CORPUSCULAR HGB CONC 31 g/dL (33-37); MEAN CORPUSCULAR VOLUME 67.1 fL (80-94); MONOCYTES # (AUTO) 0.3 K/uL (0.8-1.0); MONOCYTES % (AUTO) 8.1 % (1.7-9.3); NEUTROPHILS # (AUTO) 2.6 K/uL (1.8-7.7); NEUTROPHILS % (AUTO) 59.9 % (42.2-75.2); PLATELET COUNT (AUTO) 217 K/uL (140-450); RED BLOOD CELL COUNT(AUTO) 4.64 MIL/uL (4.20-5.40); RED CELL DISTRIBUTION WIDTH 20.5 % (11.6-13.7); WHITE BLOOD COUNT (AUTO) 4.3 K/uL (4.8-10.8)
[2023-07-08 14:56] LABS: ANION GAP 10.2 (8-16); CREATININE 1.8 mg/dL (0.6-1.3); POTASSIUM 4.2 mmol/L (3.5-5.1)
[2023-07-09] VITALS (8 sets, daily range): BP systolic 111–163; BP diastolic 67–78; PULSE 68–94; RESP 17–18; TEMP 97.4–97.9; O2SAT 96–99
[2023-07-09] MEDS ORDERED: BUMETANIDE 1 MG TAB PO SCH (17:00)
== END 2023-07-09 14:30 | disposition home or self-care (01) | DRG 199 ==
LOC: MED 19:28 → MTU 22:51 → UNDOADMIN 22:51
PROVIDERS: ADMIT Student in an Organized Health Care Education/Training Program; ATTEND Student in an Organized Health Care Education/Training Program
DX: I16.0 Hypertensive urgency (principal); J96.01 Acute respiratory failure with hypoxia; I21.A1 Myocardial infarction type 2; I50.23 Acute on chronic systolic (congestive) heart failure; I13.0 Hypertensive heart and chronic kidney disease with heart failure and stage 1 through stage 4 chronic kidney disease, or unspecified chronic kidney disease; Z20.822 Contact with and (suspected) exposure to COVID-19; R07.89 Other chest pain; E11.22 Type 2 diabetes mellitus with diabetic chronic kidney disease; N18.9 Chronic kidney disease, unspecified; E11.65 Type 2 diabetes mellitus with hyperglycemia; I48.91 Unspecified atrial fibrillation; E78.5 Hyperlipidemia, unspecified; J44.9 Chronic obstructive pulmonary disease, unspecified; Z88.8 Allergy status to other drugs, medicaments and biological substances; Z79.4 Long term (current) use of insulin; Z79.2 Long term (current) use of antibiotics; Z79.82 Long term (current) use of aspirin; Z79.899 Other long term (current) drug therapy
CPT/HCPCS: 36415; 71045; 80048; 80053; 80076; 82948; 83605; 83735; 83880; 84484; 85025; 85610; 85730; 87040; 87081; 93005; 94640; 96374; 96375; 99285; J1815; J1940; J2270; J2405; J3490; J7613; J7644; Q0163

== ENCOUNTER 2023-07-12 18:11 | Observation (INO) | payer MEDICAID ==
[~2023-07-12] VITALS: Ht 172.7 cm; Wt 117.9 kg
[~2023-07-12 18:11] MED LIST changes: -HYDR-4420 PO; +HYDR-5856 PO
[2023-07-12 18:15] VITALS: BP 174/114; PULSE 100; RESP 22; TEMP 98.1; O2SAT 99
[2023-07-12 18:46] LABS: BASOPHILS # (AUTO) 0.1 K/uL (0.00-0.22); BASOPHILS % (AUTO) 1.7 % (0.0-2.0); EOSINOPHILS # (AUTO) 0.2 K/uL (0-0.4); EOSINOPHILS % (AUTO) 4.2 % (0.0-4.0); HEMATOCRIT 30.8 % (36-48); HEMOGLOBIN 9.6 g/dL (12.0-16.0); LYMPHOCYTES # (AUTO) 1.5 K/uL (2.5-16.5); LYMPHOCYTES % (AUTO) 25.7 % (20.5-51.1); MEAN CORPUSCULAR HEMOGLOBIN 21 pg (27-31); MEAN CORPUSCULAR HGB CONC 31 g/dL (33-37); MEAN CORPUSCULAR VOLUME 65.9 fL (80-94); MONOCYTES # (AUTO) 0.5 K/uL (0.8-1.0); MONOCYTES % (AUTO) 8.3 % (1.7-9.3); NEUTROPHILS # (AUTO) 3.5 K/uL (1.8-7.7); NEUTROPHILS % (AUTO) 60.1 % (42.2-75.2); PLATELET COUNT (AUTO) 192 K/uL (140-450); RED BLOOD CELL COUNT(AUTO) 4.68 MIL/uL (4.20-5.40); RED CELL DISTRIBUTION WIDTH 20.4 % (11.6-13.7); WHITE BLOOD COUNT (AUTO) 5.8 K/uL (4.8-10.8)
[2023-07-12 19:06] LABS: ALBUMIN 2.8 g/dL (3.4-5.0); ANION GAP 11.9 (8-16); CALCIUM 8.3 mg/dL (8.5-10.1); CARBON DIOXIDE 30.8 mmol/L (21-32); CREATININE 1.5 mg/dL (0.6-1.3); POTASSIUM 3.7 mmol/L (3.5-5.1); TOTAL BILIRUBIN 0.4 mg/dL (0.0-1.0); TOTAL PROTEIN, SERUM 7.1 g/dL (6.4-8.2)
[2023-07-12] MEDS: MORPHINE SULFATE 4 MG/ML SYR IVP ONE ×2 (19:27→22:29)
[2023-07-12] MEDS: ALBUTEROL SULFATE/IPRATROPIU 3 ML SOL IH ONE (19:34)
[2023-07-12 19:38] VITALS: PULSE 86; RESP 14; O2SAT 100
[2023-07-12 20:49] VITALS: O2SAT 100
[2023-07-12] MEDS: ONDANSETRON 4 MG/2 ML VIAL IVP ONE (22:29)
[2023-07-12] MEDS ORDERED: ONDANSETRON 4 MG/2 ML VIAL IVP PRN (22:40)
[2023-07-12] MEDS ORDERED: ACETAMINOPHEN 325 MG TAB PO PRN (22:40)
[2023-07-12] MEDS ORDERED: HYDROcodone/APAP 5/325 MG 1 TAB TAB PO PRN ×2 (22:40→22:50)
[2023-07-12] MEDS ORDERED: LORazepam 2 MG/ML VIAL IVP PRN (22:40)
[2023-07-12] MEDS ORDERED: NITROGLYCERIN 0.4 MG TAB SL PRN (22:50)
[2023-07-12] MEDS ORDERED: ALBUTEROL HFA MDI 90 MCG/ACTUATION 8 GM INH PRN (22:50)
[2023-07-12] MEDS: CLONIDINE HYDROCHLORIDE 0.1 MG TAB PO PRN (23:50)
[2023-07-13] MEDS ORDERED: DEXTROSE 50% 50 ML SYR IVP PRN (01:20)
[2023-07-13 01:26] VITALS: PULSE 86; RESP 18; O2SAT 97
[2023-07-13 02:01] VITALS: PULSE 86; RESP 18; O2SAT 97
[2023-07-13 04:00] VITALS: BP 128/78; PULSE 67; PULSE 74; RESP 18; TEMP 97.2; O2SAT 97
[2023-07-13] MEDS: MORPHINE SULFATE 2 MG/ML SYR IVP PRN (06:36)
[2023-07-13] MEDS: BLOOD GLUCOSE MONITORING 1 DEV DEV FS SCH (06:41)
[2023-07-13] MEDS: INSULIN LISPRO SLIDING SCALE 100 UNITS/ML VIAL SUBQ PRN (06:47)
[2023-07-13 07:08] LABS: BASOPHILS # (AUTO) 0.1 K/uL (0.00-0.22); EOSINOPHILS # (AUTO) 0.2 K/uL (0-0.4); EOSINOPHILS % (AUTO) 3.9 % (0.0-4.0); HEMATOCRIT 31.2 % (36-48); HEMOGLOBIN 9.5 g/dL (12.0-16.0); LYMPHOCYTES # (AUTO) 1.8 K/uL (2.5-16.5); MEAN CORPUSCULAR HEMOGLOBIN 20 pg (27-31); MEAN CORPUSCULAR HGB CONC 31 g/dL (33-37); MEAN CORPUSCULAR VOLUME 66.8 fL (80-94); MONOCYTES # (AUTO) 0.5 K/uL (0.8-1.0); MONOCYTES % (AUTO) 7.6 % (1.7-9.3); NEUTROPHILS # (AUTO) 3.3 K/uL (1.8-7.7); NEUTROPHILS % (AUTO) 56.5 % (42.2-75.2); PLATELET COUNT (AUTO) 178 K/uL (140-450); RED BLOOD CELL COUNT(AUTO) 4.67 MIL/uL (4.20-5.40); RED CELL DISTRIBUTION WIDTH 20.8 % (11.6-13.7); WHITE BLOOD COUNT (AUTO) 5.9 K/uL (4.8-10.8)
[2023-07-13 07:50] LABS: ALBUMIN 2.8 g/dL (3.4-5.0); ANION GAP 9.7 (8-16); CALCIUM 8.2 mg/dL (8.5-10.1); CARBON DIOXIDE 34.1 mmol/L (21-32); CREATININE 1.7 mg/dL (0.6-1.3); MAGNESIUM 1.7 mg/dL (1.8-2.4); POTASSIUM 3.8 mmol/L (3.5-5.1); TOTAL BILIRUBIN 0.5 mg/dL (0.0-1.0); TOTAL PROTEIN, SERUM 6.9 g/dL (6.4-8.2)
[2023-07-13 07:57] VITALS: O2SAT 99
[2023-07-13 08:00] VITALS: BP 148/90; PULSE 68; PULSE 79; RESP 18; TEMP 97.2; O2SAT 100; O2SAT 97
[2023-07-13] MEDS: APIXABAN 2.5 MG TAB PO SCH (08:23)
[2023-07-13] MEDS: hydrALAZINE 25 MG TAB PO SCH (08:23)
[2023-07-13] MEDS: SPIRONOLACTONE 25 MG TAB PO SCH (08:24)
[2023-07-13] MEDS: lisinopriL 5 MG TAB PO SCH (08:24)
[2023-07-13] MEDS: carvediloL 12.5 MG TAB PO SCH (08:24)
[2023-07-13] MEDS: FUROSEMIDE 40 MG/4 ML VIAL IVP SCH (08:25)
[2023-07-13] MEDS: ASPIRIN 81 MG TAB.CHEW PO SCH (08:25)
[2023-07-13] MEDS ORDERED: ASPIRIN 81 MG TAB.CHEW PO SCH (09:00)
[2023-07-13] MEDS ORDERED: ENOXAPARIN 40 MG/0.4 ML SYR SUBQ SCH (09:00)
[2023-07-13] MEDS ORDERED: NON-FORMULARY ITEM (Tiotropium Bromide* (Spiriva Mdi*) 1 CAP) INH SCH (09:00)
[2023-07-13] MEDS: MAG SULF 2000 MG/WATER PREMIX 50 ML IV SCH (09:51)
[2023-07-13] MEDS ORDERED: ATORVASTATIN 20 MG TAB PO SCH (21:00)
[2023-07-13] MEDS ORDERED: INSULIN LANTUS 100 UNITS/ML 10 ML VIAL SUBQ SCH (21:00)
== END 2023-07-13 11:47 | disposition home or self-care (01) ==
LOC: MED 18:11 → MTU 22:44
PROVIDERS: ADMIT Internal Medicine; ATTEND Internal Medicine
DX: I13.0 Hypertensive heart and chronic kidney disease with heart failure and stage 1 through stage 4 chronic kidney disease, or unspecified chronic kidney disease (principal); E11.22 Type 2 diabetes mellitus with diabetic chronic kidney disease; N18.30 Chronic kidney disease, stage 3 unspecified; I50.9 Heart failure, unspecified; I16.0 Hypertensive urgency; I48.0 Paroxysmal atrial fibrillation; I25.10 Atherosclerotic heart disease of native coronary artery without angina pectoris; E11.65 Type 2 diabetes mellitus with hyperglycemia; I21.4 Non-ST elevation (NSTEMI) myocardial infarction; E66.01 Morbid (severe) obesity due to excess calories; J44.9 Chronic obstructive pulmonary disease, unspecified; Z79.82 Long term (current) use of aspirin; Z88.6 Allergy status to analgesic agent; Z88.5 Allergy status to narcotic agent; Z79.899 Other long term (current) drug therapy; Z79.4 Long term (current) use of insulin; Z68.39 Body mass index [BMI] 39.0-39.9, adult
CPT/HCPCS: 36415; 71045; 80053; 82948; 83735; 83880; 84484; 85025; 87081; 93005; 94760; 96365; 96366; 96372; 96375; 96376; 99285; G0378; J1940; J2270; J2405; J3475; Q0092; J1815

== ENCOUNTER 2023-07-15 23:09 | Emergency (ER) | payer MEDICAID ==
[~2023-07-15] VITALS: Ht 172.7 cm; Wt 122.5 kg
[2023-07-15 23:13] VITALS: BP 168/116; PULSE 98; RESP 16; TEMP 98.3; O2SAT 98
[2023-07-15] MEDS: MORPHINE SULFATE 4 MG/ML SYR IVP ONE (23:59)
[2023-07-16 00:20] LABS: BASOPHILS # (AUTO) 0.1 K/uL (0.00-0.22); BASOPHILS % (AUTO) 2.1 % (0.0-2.0); EOSINOPHILS # (AUTO) 0.2 K/uL (0-0.4); EOSINOPHILS % (AUTO) 3.9 % (0.0-4.0); HEMATOCRIT 31.9 % (36-48); HEMOGLOBIN 9.8 g/dL (12.0-16.0); LYMPHOCYTES % (AUTO) 36.2 % (20.5-51.1); MEAN CORPUSCULAR HEMOGLOBIN 21 pg (27-31); MEAN CORPUSCULAR HGB CONC 31 g/dL (33-37); MEAN CORPUSCULAR VOLUME 66.6 fL (80-94); MONOCYTES # (AUTO) 0.4 K/uL (0.8-1.0); MONOCYTES % (AUTO) 7.6 % (1.7-9.3); NEUTROPHILS # (AUTO) 2.8 K/uL (1.8-7.7); NEUTROPHILS % (AUTO) 50.2 % (42.2-75.2); PLATELET COUNT (AUTO) 221 K/uL (140-450); RED BLOOD CELL COUNT(AUTO) 4.78 MIL/uL (4.20-5.40); RED CELL DISTRIBUTION WIDTH 20.5 % (11.6-13.7); WHITE BLOOD COUNT (AUTO) 5.5 K/uL (4.8-10.8)
[2023-07-16 00:29] LABS: ANION GAP 9.5 (8-16); CALCIUM 8.6 mg/dL (8.5-10.1); CARBON DIOXIDE 32.3 mmol/L (21-32); CREATININE 1.2 mg/dL (0.6-1.3); POTASSIUM 3.8 mmol/L (3.5-5.1)
[2023-07-16 00:33] LABS: INR 0.99 (0.8-1.2); PARTIAL THROMBOPLASTIN TIME 26.2 secs (22-35.6); PROTHROMBIN TIME 10.4 secs (10.8-13.4)
[2023-07-16 00:39] LABS: ALANINE AMINOTRANSFERASE 15 U/L (12-78); ALBUMIN 2.8 g/dL (3.4-5.0); ALKALINE PHOSPHATASE 153 U/L (50-136); ASPARTATE AMINOTRANSFERASE 19 U/L (15-37); BILIRUBIN,DIRECT 0.1 mg/dL (0.0-0.3); TOTAL BILIRUBIN 0.3 mg/dL (0.0-1.0); TOTAL PROTEIN, SERUM 7.1 g/dL (6.4-8.2)
[2023-07-16] MEDS: FUROSEMIDE 40 MG/4 ML VIAL IVP ONE (03:22)
[2023-07-16] MEDS: MORPHINE SULFATE 4 MG/ML SYR IVP ONE (03:23)
[2023-07-16 04:00] VITALS: BP 156/78; PULSE 74; RESP 15; TEMP 98.2; O2SAT 98
== END 2023-07-16 04:17 | disposition home or self-care (01) ==
LOC: MED 23:09
DX: R07.9 Chest pain, unspecified (principal); R79.89 Other specified abnormal findings of blood chemistry; J44.9 Chronic obstructive pulmonary disease, unspecified; E11.9 Type 2 diabetes mellitus without complications; I11.0 Hypertensive heart disease with heart failure; I50.9 Heart failure, unspecified; I25.2 Old myocardial infarction; Z79.4 Long term (current) use of insulin; Z79.82 Long term (current) use of aspirin; Z79.899 Other long term (current) drug therapy; Z88.5 Allergy status to narcotic agent; Z88.8 Allergy status to other drugs, medicaments and biological substances
CPT/HCPCS: 36415; 71045; 80048; 80076; 83880; 84484; 85025; 85610; 85730; 93005; 96374; 96375; 96376; 99285; J1940; J2270; Q0092

== ENCOUNTER 2023-07-18 21:33 | Observation (INO) | payer MEDICAID ==
[~2023-07-18] VITALS: Ht 172.7 cm; Wt 117.9 kg
[2023-07-18 21:57] VITALS: BP 172/88; PULSE 86; RESP 20; TEMP 98; O2SAT 97
[2023-07-18 22:34] LABS: BASOPHILS % (AUTO) 0.5 % (0.0-2.0); EOSINOPHILS # (AUTO) 0.3 K/uL (0-0.4); EOSINOPHILS % (AUTO) 5.1 % (0.0-4.0); HEMATOCRIT 32.6 % (36-48); LYMPHOCYTES # (AUTO) 1.1 K/uL (2.5-16.5); LYMPHOCYTES % (AUTO) 19.4 % (20.5-51.1); MEAN CORPUSCULAR HEMOGLOBIN 21 pg (27-31); MEAN CORPUSCULAR HGB CONC 31 g/dL (33-37); MONOCYTES # (AUTO) 0.3 K/uL (0.8-1.0); MONOCYTES % (AUTO) 6.1 % (1.7-9.3); NEUTROPHILS # (AUTO) 3.8 K/uL (1.8-7.7); NEUTROPHILS % (AUTO) 68.9 % (42.2-75.2); PLATELET COUNT (AUTO) 234 K/uL (140-450); RED BLOOD CELL COUNT(AUTO) 4.86 MIL/uL (4.20-5.40); RED CELL DISTRIBUTION WIDTH 20.7 % (11.6-13.7); WHITE BLOOD COUNT (AUTO) 5.6 K/uL (4.8-10.8)
[2023-07-18 22:50] LABS: ANION GAP 9.6 (8-16); CARBON DIOXIDE 34.6 mmol/L (21-32); CREATININE 1.7 mg/dL (0.6-1.3); POTASSIUM 4.2 mmol/L (3.5-5.1)
[2023-07-18] MEDS: MORPHINE SULFATE 4 MG/ML SYR IVP ONE (22:52)
[2023-07-18] MEDS: INSULIN LISPRO 100 UNITS/ML VIAL SUBQ ONE (23:36)
[2023-07-18] MEDS: ENOXAPARIN 100 MG/ML SYR SUBQ ONE (23:36)
[2023-07-19] VITALS (7 sets, daily range): BP systolic 146–165; BP diastolic 89–97; PULSE 79–95; RESP 18–19; TEMP 97.7–98; O2SAT 91–100
[2023-07-19] MEDS ORDERED: ACETAMINOPHEN 325 MG TAB PO PRN (00:40)
[2023-07-19] MEDS ORDERED: ONDANSETRON 4 MG/2 ML VIAL IVP PRN (00:40)
[2023-07-19] MEDS: MORPHINE SULFATE 2 MG/ML SYR IVP PRN (01:43)
[2023-07-19] MEDS ORDERED: DEXTROSE 50% 50 ML SYR IVP PRN (03:40)
[2023-07-19] MEDS: BLOOD GLUCOSE MONITORING 1 DEV DEV FS SCH (06:41)
[2023-07-19] MEDS: INSULIN LISPRO SLIDING SCALE 100 UNITS/ML VIAL SUBQ PRN (06:43)
== END 2023-07-19 16:40 | disposition home or self-care (01) ==
LOC: MED 21:33 → MTU 07-19 00:39
PROVIDERS: ADMIT Hospitalist; ATTEND Hospitalist
DX: R07.89 Other chest pain (principal); I13.0 Hypertensive heart and chronic kidney disease with heart failure and stage 1 through stage 4 chronic kidney disease, or unspecified chronic kidney disease; E11.22 Type 2 diabetes mellitus with diabetic chronic kidney disease; I50.9 Heart failure, unspecified; N18.9 Chronic kidney disease, unspecified; E11.65 Type 2 diabetes mellitus with hyperglycemia; N17.9 Acute kidney failure, unspecified; E66.9 Obesity, unspecified; J44.9 Chronic obstructive pulmonary disease, unspecified; Z79.899 Other long term (current) drug therapy
CPT/HCPCS: 36415; 71045; 80048; 82948; 83880; 84484; 85025; 87081; 93005; 94760; 96372; 96374; 96376; 99291; C8929; G0378; J1650; J1815; J2270; Q0092

== ENCOUNTER 2023-07-25 19:14 | Emergency (ER) | payer MEDICAID ==
[~2023-07-25] VITALS: Ht 172.7 cm; Wt 122.0 kg
[2023-07-25 19:38] VITALS: BP 162/96; PULSE 92; RESP 20; TEMP 98.2; O2SAT 96
[2023-07-25 21:00] LABS: BASOPHILS # (AUTO) 0.1 K/uL (0.00-0.22); BASOPHILS % (AUTO) 2.2 % (0.0-2.0); EOSINOPHILS # (AUTO) 0.3 K/uL (0-0.4); EOSINOPHILS % (AUTO) 4.9 % (0.0-4.0); HEMATOCRIT 34.4 % (36-48); HEMOGLOBIN 10.4 g/dL (12.0-16.0); LYMPHOCYTES # (AUTO) 1.8 K/uL (2.5-16.5); LYMPHOCYTES % (AUTO) 30.2 % (20.5-51.1); MEAN CORPUSCULAR HEMOGLOBIN 20 pg (27-31); MEAN CORPUSCULAR HGB CONC 30 g/dL (33-37); MEAN CORPUSCULAR VOLUME 67.7 fL (80-94); MONOCYTES # (AUTO) 0.3 K/uL (0.8-1.0); MONOCYTES % (AUTO) 5.7 % (1.7-9.3); NEUTROPHILS # (AUTO) 3.3 K/uL (1.8-7.7); PLATELET COUNT (AUTO) 294 K/uL (140-450); RED BLOOD CELL COUNT(AUTO) 5.09 MIL/uL (4.20-5.40); RED CELL DISTRIBUTION WIDTH 21.3 % (11.6-13.7); WHITE BLOOD COUNT (AUTO) 5.9 K/uL (4.8-10.8)
[2023-07-25 21:09] LABS: CARBON DIOXIDE 30.8 mmol/L (21-32); CREATININE 1.4 mg/dL (0.6-1.3); POTASSIUM 3.8 mmol/L (3.5-5.1)
[2023-07-25] MEDS: MORPHINE SULFATE 4 MG/ML SYR IM ONE (21:28)
[2023-07-25 23:00] VITALS: BP 162/96; PULSE 92; RESP 20; TEMP 98.2; O2SAT 96
== END 2023-07-25 23:00 | disposition home or self-care (01) ==
LOC: MED 19:14
DX: R07.9 Chest pain, unspecified (principal); R79.89 Other specified abnormal findings of blood chemistry; I13.0 Hypertensive heart and chronic kidney disease with heart failure and stage 1 through stage 4 chronic kidney disease, or unspecified chronic kidney disease; E11.22 Type 2 diabetes mellitus with diabetic chronic kidney disease; N18.9 Chronic kidney disease, unspecified; J45.909 Unspecified asthma, uncomplicated; J44.9 Chronic obstructive pulmonary disease, unspecified; Z79.4 Long term (current) use of insulin; Z79.899 Other long term (current) drug therapy; Z79.1 Long term (current) use of non-steroidal anti-inflammatories (NSAID); Z88.6 Allergy status to analgesic agent; Z88.8 Allergy status to other drugs, medicaments and biological substances
CPT/HCPCS: 36415; 71045; 80048; 83880; 84484; 85025; 93005; 96372; 99285; J2270

== ENCOUNTER 2023-07-28 07:41 | Emergency (ER) | payer MEDICAID ==
[~2023-07-28] VITALS: Ht 172.7 cm; Wt 122.0 kg
[2023-07-28 07:42] VITALS: BP 176/105; PULSE 98; RESP 20; TEMP 97.9; O2SAT 98
[2023-07-28] MEDS: MORPHINE SULFATE 4 MG/ML SYR IM ONE (08:37)
[2023-07-28 08:52] LABS: BASOPHILS # (AUTO) 0.1 K/uL (0.00-0.22); BASOPHILS % (AUTO) 1.5 % (0.0-2.0); EOSINOPHILS # (AUTO) 0.2 K/uL (0-0.4); HEMATOCRIT 31.3 % (36-48); HEMOGLOBIN 9.5 g/dL (12.0-16.0); LYMPHOCYTES # (AUTO) 1.1 K/uL (2.5-16.5); LYMPHOCYTES % (AUTO) 21.1 % (20.5-51.1); MEAN CORPUSCULAR HEMOGLOBIN 20 pg (27-31); MEAN CORPUSCULAR HGB CONC 30 g/dL (33-37); MEAN CORPUSCULAR VOLUME 66.4 fL (80-94); MONOCYTES # (AUTO) 0.3 K/uL (0.8-1.0); MONOCYTES % (AUTO) 6.4 % (1.7-9.3); NEUTROPHILS # (AUTO) 3.5 K/uL (1.8-7.7); PLATELET COUNT (AUTO) 273 K/uL (140-450); RED BLOOD CELL COUNT(AUTO) 4.72 MIL/uL (4.20-5.40); RED CELL DISTRIBUTION WIDTH 21.3 % (11.6-13.7); WHITE BLOOD COUNT (AUTO) 5.2 K/uL (4.8-10.8)
[2023-07-28 09:10] LABS: ANION GAP 11.7 (8-16); CALCIUM 8.6 mg/dL (8.5-10.1); CARBON DIOXIDE 28.9 mmol/L (21-32); CREATININE 1.3 mg/dL (0.6-1.3); POTASSIUM 3.6 mmol/L (3.5-5.1)
[2023-07-28 09:19] LABS: INR 1.13 (0.8-1.2); PARTIAL THROMBOPLASTIN TIME 25.2 secs (22-35.6); PROTHROMBIN TIME 11.8 secs (10.8-13.4)
[2023-07-28] MEDS: ASPIRIN 81 MG TAB.CHEW PO ONE (11:57)
[2023-07-28] MEDS: HYDROcodone/APAP 10/325 MG 1 TAB TAB PO ONE (11:57)
[2023-07-28 12:16] VITALS: BP 181/135; PULSE 97; RESP 17; O2SAT 100
== END 2023-07-28 12:16 | disposition left against medical advice (07) ==
LOC: MED 07:41
DX: R07.89 Other chest pain (principal); J44.9 Chronic obstructive pulmonary disease, unspecified; I25.2 Old myocardial infarction; I13.2 Hypertensive heart and chronic kidney disease with heart failure and with stage 5 chronic kidney disease, or end stage renal disease; I50.9 Heart failure, unspecified; E11.22 Type 2 diabetes mellitus with diabetic chronic kidney disease; N18.9 Chronic kidney disease, unspecified; Z79.4 Long term (current) use of insulin; Z79.82 Long term (current) use of aspirin; Z79.899 Other long term (current) drug therapy; Z88.6 Allergy status to analgesic agent; Z88.8 Allergy status to other drugs, medicaments and biological substances
CPT/HCPCS: 36415; 71045; 80048; 83880; 84484; 85025; 85610; 85730; 93005; 96372; 99285; J2270

== ENCOUNTER 2023-07-29 21:00 | Emergency (ER) | payer MEDICAID ==
[~2023-07-29] VITALS: Ht 172.7 cm; Wt 122.0 kg
[2023-07-29 21:02] VITALS: BP 182/116; PULSE 96; RESP 20; TEMP 97.9; O2SAT 98
[2023-07-29 21:12] VITALS: O2SAT 100
[2023-07-29 21:18] VITALS: TEMP 98.6
[2023-07-29 21:55] LABS: BASOPHILS % (AUTO) 0.8 % (0.0-2.0); EOSINOPHILS # (AUTO) 0.3 K/uL (0-0.4); HEMATOCRIT 31.7 % (36-48); HEMOGLOBIN 9.6 g/dL (12.0-16.0); LYMPHOCYTES # (AUTO) 1.1 K/uL (2.5-16.5); LYMPHOCYTES % (AUTO) 22.8 % (20.5-51.1); MEAN CORPUSCULAR HEMOGLOBIN 20 pg (27-31); MEAN CORPUSCULAR HGB CONC 30 g/dL (33-37); MEAN CORPUSCULAR VOLUME 67.1 fL (80-94); MONOCYTES # (AUTO) 0.3 K/uL (0.8-1.0); MONOCYTES % (AUTO) 7.3 % (1.7-9.3); NEUTROPHILS # (AUTO) 2.9 K/uL (1.8-7.7); NEUTROPHILS % (AUTO) 63.1 % (42.2-75.2); PLATELET COUNT (AUTO) 269 K/uL (140-450); RED BLOOD CELL COUNT(AUTO) 4.73 MIL/uL (4.20-5.40); RED CELL DISTRIBUTION WIDTH 21.4 % (11.6-13.7); WHITE BLOOD COUNT (AUTO) 4.6 K/uL (4.8-10.8)
[2023-07-29 22:34] LABS: ANION GAP 12.1 (8-16); CALCIUM 8.6 mg/dL (8.5-10.1); CARBON DIOXIDE 28.1 mmol/L (21-32); CREATININE 1.5 mg/dL (0.6-1.3); POTASSIUM 4.2 mmol/L (3.5-5.1)
[2023-07-29 22:39] VITALS: BP 182/104; PULSE 104; RESP 18; O2SAT 98
[2023-07-29] MEDS: MORPHINE SULFATE 10 MG/ML VIAL IM ONE (22:39)
[2023-07-29] MEDS: MORPHINE SULFATE 4 MG/ML SYR IVP ONE (23:55)
== END 2023-07-30 00:25 | disposition home or self-care (01) ==
LOC: MED 21:00
DX: R07.89 Other chest pain (principal); R79.89 Other specified abnormal findings of blood chemistry; J44.9 Chronic obstructive pulmonary disease, unspecified; E11.22 Type 2 diabetes mellitus with diabetic chronic kidney disease; I13.0 Hypertensive heart and chronic kidney disease with heart failure and stage 1 through stage 4 chronic kidney disease, or unspecified chronic kidney disease; N18.9 Chronic kidney disease, unspecified; I50.9 Heart failure, unspecified; I25.2 Old myocardial infarction; Z79.1 Long term (current) use of non-steroidal anti-inflammatories (NSAID); Z79.899 Other long term (current) drug therapy; Z79.82 Long term (current) use of aspirin; Z79.4 Long term (current) use of insulin; Z88.6 Allergy status to analgesic agent; Z88.8 Allergy status to other drugs, medicaments and biological substances
CPT/HCPCS: 36415; 71045; 80048; 84484; 85025; 93005; 96372; 96374; 99285; J2270; Q0092

== ENCOUNTER 2023-08-02 20:43 | Emergency (ER) | payer MEDICAID ==
[~2023-08-02] VITALS: Ht 172.7 cm; Wt 122.0 kg
[2023-08-02 21:07] VITALS: BP 168/117; PULSE 101; RESP 20; TEMP 97.2; O2SAT 98
[2023-08-02 22:13] LABS: BASOPHILS # (AUTO) 0.1 K/uL (0.00-0.22); BASOPHILS % (AUTO) 1.8 % (0.0-2.0); EOSINOPHILS # (AUTO) 0.3 K/uL (0-0.4); EOSINOPHILS % (AUTO) 4.8 % (0.0-4.0); HEMATOCRIT 32.3 % (36-48); HEMOGLOBIN 9.9 g/dL (12.0-16.0); LYMPHOCYTES # (AUTO) 1.4 K/uL (2.5-16.5); LYMPHOCYTES % (AUTO) 25.5 % (20.5-51.1); MEAN CORPUSCULAR HEMOGLOBIN 20 pg (27-31); MEAN CORPUSCULAR HGB CONC 31 g/dL (33-37); MONOCYTES # (AUTO) 0.4 K/uL (0.8-1.0); MONOCYTES % (AUTO) 8.1 % (1.7-9.3); NEUTROPHILS # (AUTO) 3.2 K/uL (1.8-7.7); NEUTROPHILS % (AUTO) 59.8 % (42.2-75.2); PLATELET COUNT (AUTO) 276 K/uL (140-450); RED BLOOD CELL COUNT(AUTO) 4.89 MIL/uL (4.20-5.40); RED CELL DISTRIBUTION WIDTH 21.2 % (11.6-13.7); WHITE BLOOD COUNT (AUTO) 5.4 K/uL (4.8-10.8)
[2023-08-02] MEDS ORDERED: ONDANSETRON 4 MG/2 ML VIAL ONE (22:14)
[2023-08-02] MEDS: MORPHINE SULFATE 10 MG/ML VIAL IVP ONE (22:23)
[2023-08-02] MEDS: ONDANSETRON 4 MG/2 ML VIAL IVP ONE (22:25)
[2023-08-02 22:38] LABS: ALBUMIN 2.9 g/dL (3.4-5.0); ANION GAP 11.2 (8-16); CALCIUM 8.4 mg/dL (8.5-10.1); CARBON DIOXIDE 28.9 mmol/L (21-32); CREATININE 1.4 mg/dL (0.6-1.3); POTASSIUM 4.1 mmol/L (3.5-5.1); TOTAL BILIRUBIN 0.5 mg/dL (0.0-1.0); TOTAL PROTEIN, SERUM 7.1 g/dL (6.4-8.2)
[2023-08-02] MEDS: HYDROcodone/APAP 5/325 MG 1 TAB TAB PO ONE (23:47)
[2023-08-02 23:54] VITALS: BP 165/99; PULSE 89; RESP 20; TEMP 98; O2SAT 100
== END 2023-08-02 23:54 | disposition home or self-care (01) ==
LOC: MED 20:43
DX: G89.29 Other chronic pain (principal); R07.9 Chest pain, unspecified; J45.909 Unspecified asthma, uncomplicated; E11.9 Type 2 diabetes mellitus without complications; J44.9 Chronic obstructive pulmonary disease, unspecified; I11.0 Hypertensive heart disease with heart failure; N28.9 Disorder of kidney and ureter, unspecified; Z79.4 Long term (current) use of insulin; Z79.899 Other long term (current) drug therapy; Z79.1 Long term (current) use of non-steroidal anti-inflammatories (NSAID); Z88.5 Allergy status to narcotic agent; Z88.6 Allergy status to analgesic agent; Z88.8 Allergy status to other drugs, medicaments and biological substances
CPT/HCPCS: 36415; 71045; 80053; 83880; 84484; 85025; 93005; 96374; 96375; 99285; J2270; J2405

== ENCOUNTER 2023-08-13 14:31 | Inpatient (IN) | payer MEDICAID ==
[~2023-08-13] VITALS: Ht 172.7 cm; Wt 127.9 kg
[2023-08-13 14:39] VITALS: BP 153/102; PULSE 102; RESP 18; TEMP 98.9; O2SAT 100
[2023-08-13 15:35] LABS: BASOPHILS # (AUTO) 0.1 K/uL (0.00-0.22); BASOPHILS % (AUTO) 1.2 % (0.0-2.0); EOSINOPHILS # (AUTO) 0.2 K/uL (0-0.4); EOSINOPHILS % (AUTO) 3.9 % (0.0-4.0); HEMATOCRIT 31.1 % (36-48); HEMOGLOBIN 9.7 g/dL (12.0-16.0); LYMPHOCYTES # (AUTO) 1.5 K/uL (2.5-16.5); MEAN CORPUSCULAR HEMOGLOBIN 21 pg (27-31); MEAN CORPUSCULAR HGB CONC 31 g/dL (33-37); MEAN CORPUSCULAR VOLUME 65.5 fL (80-94); MONOCYTES # (AUTO) 0.5 K/uL (0.8-1.0); MONOCYTES % (AUTO) 8.5 % (1.7-9.3); NEUTROPHILS # (AUTO) 3.9 K/uL (1.8-7.7); NEUTROPHILS % (AUTO) 62.4 % (42.2-75.2); PLATELET COUNT (AUTO) 220 K/uL (140-450); RED BLOOD CELL COUNT(AUTO) 4.76 MIL/uL (4.20-5.40); RED CELL DISTRIBUTION WIDTH 21.1 % (11.6-13.7); WHITE BLOOD COUNT (AUTO) 6.3 K/uL (4.8-10.8)
[2023-08-13 15:54] LABS: CALCIUM 8.4 mg/dL (8.5-10.1); CREATININE 1.2 mg/dL (0.6-1.3)
[2023-08-13] MEDS: MORPHINE SULFATE 4 MG/ML SYR IM ONE (16:27)
[2023-08-13] MEDS: BUMETANIDE 1 MG TAB PO ONE (16:46)
[2023-08-13] MEDS ORDERED: ONDANSETRON 4 MG/2 ML VIAL IVP PRN (18:55)
[2023-08-13] MEDS ORDERED: ACETAMINOPHEN 325 MG TAB PO PRN (18:55)
[2023-08-13] MEDS ORDERED: DEXTROSE 50% 50 ML SYR IVP PRN (18:55)
[2023-08-13] MEDS ORDERED: HYDROcodone/APAP 5/325 MG 1 TAB TAB PO PRN ×2 (18:55→19:00)
[2023-08-13] MEDS ORDERED: CLONIDINE HYDROCHLORIDE 0.1 MG TAB PO PRN (19:00)
[2023-08-13] MEDS ORDERED: NITROGLYCERIN 0.4 MG TAB SL SCH (19:00)
[2023-08-13 21:04] VITALS: BP 151/98; PULSE 101; RESP 18; TEMP 97.2; O2SAT 98
[2023-08-13 21:14] VITALS: PULSE 108
[2023-08-13] MEDS: ATORVASTATIN 20 MG TAB PO SCH (21:17)
[2023-08-13] MEDS: BLOOD GLUCOSE MONITORING 1 DEV DEV FS SCH (21:17)
[2023-08-13] MEDS: carvediloL 12.5 MG TAB PO SCH (21:17)
[2023-08-13] MEDS: INSULIN LISPRO SLIDING SCALE 100 UNITS/ML VIAL SUBQ PRN (21:19)
[2023-08-13] MEDS: INSULIN LANTUS 100 UNITS/ML 10 ML VIAL SUBQ SCH (21:19)
[2023-08-13] MEDS: MORPHINE SULFATE 2 MG/ML SYR IVP PRN (21:24)
[2023-08-13 23:56] VITALS: PULSE 93
[2023-08-14] VITALS (9 sets, daily range): BP systolic 122–148; BP diastolic 77–89; PULSE 71–101; RESP 18–20; TEMP 97–98; O2SAT 98–100
[2023-08-14] MEDS: IPRATROPIUM 0.02% 0.5 MG/2.5 ML NEBU INH SCH (01:39)
[2023-08-14 05:48] LABS: ALBUMIN 2.6 g/dL (3.4-5.0); ANION GAP 8.2 (8-16); CALCIUM 8.4 mg/dL (8.5-10.1); CARBON DIOXIDE 34.1 mmol/L (21-32); CREATININE 1.5 mg/dL (0.6-1.3); MAGNESIUM 1.7 mg/dL (1.8-2.4); POTASSIUM 4.3 mmol/L (3.5-5.1); TOTAL BILIRUBIN 0.9 mg/dL (0.0-1.0); TOTAL PROTEIN, SERUM 6.8 g/dL (6.4-8.2)
[2023-08-14 06:55] LABS: BASOPHILS # (AUTO) 0.1 K/uL (0.00-0.22); BASOPHILS % (AUTO) 1.7 % (0.0-2.0); EOSINOPHILS # (AUTO) 0.4 K/uL (0-0.4); EOSINOPHILS % (AUTO) 7.1 % (0.0-4.0); HEMATOCRIT 31.6 % (36-48); HEMOGLOBIN 9.6 g/dL (12.0-16.0); LYMPHOCYTES # (AUTO) 1.6 K/uL (2.5-16.5); LYMPHOCYTES % (AUTO) 32.5 % (20.5-51.1); MEAN CORPUSCULAR HEMOGLOBIN 20 pg (27-31); MEAN CORPUSCULAR HGB CONC 30 g/dL (33-37); MEAN CORPUSCULAR VOLUME 66.2 fL (80-94); MONOCYTES # (AUTO) 0.4 K/uL (0.8-1.0); MONOCYTES % (AUTO) 8.9 % (1.7-9.3); NEUTROPHILS # (AUTO) 2.5 K/uL (1.8-7.7); NEUTROPHILS % (AUTO) 49.8 % (42.2-75.2); PLATELET COUNT (AUTO) 224 K/uL (140-450); RED BLOOD CELL COUNT(AUTO) 4.77 MIL/uL (4.20-5.40); RED CELL DISTRIBUTION WIDTH 21.6 % (11.6-13.7)
[2023-08-14] MEDS ORDERED: NITROGLYCERIN 0.4 MG TAB SL PRN (07:23)
[2023-08-14] MEDS: hydrALAZINE 25 MG TAB PO SCH (09:32)
[2023-08-14] MEDS: ASPIRIN 81 MG TAB.CHEW PO SCH (09:32)
[2023-08-14] MEDS: BUMETANIDE 1 MG/4 ML VIAL IV SCH (09:32)
[2023-08-14] MEDS: SPIRONOLACTONE 25 MG TAB PO SCH (09:33)
[2023-08-14] MEDS: lisinopriL 5 MG TAB PO SCH (09:33)
[2023-08-14] MEDS: APIXABAN 2.5 MG TAB PO SCH (12:11)
[2023-08-15] VITALS (8 sets, daily range): BP systolic 113–128; BP diastolic 61–75; PULSE 63–82; RESP 18–20; TEMP 97–98; O2SAT 97–99
[2023-08-15] MEDS ORDERED: IPRATROPIUM 0.02% 0.5 MG/2.5 ML NEBU INH PRN (08:20)
== END 2023-08-15 18:30 | disposition home or self-care (01) | DRG 194 ==
LOC: MED 14:31 → OBSVTOIN 19:20 → MTU 19:20
PROVIDERS: ADMIT Hospitalist; ATTEND Hospitalist
DX: I13.0 Hypertensive heart and chronic kidney disease with heart failure and stage 1 through stage 4 chronic kidney disease, or unspecified chronic kidney disease (principal); J96.10 Chronic respiratory failure, unspecified whether with hypoxia or hypercapnia; E44.1 Mild protein-calorie malnutrition; E11.22 Type 2 diabetes mellitus with diabetic chronic kidney disease; D63.8 Anemia in other chronic diseases classified elsewhere; Z79.01 Long term (current) use of anticoagulants; N18.9 Chronic kidney disease, unspecified; E78.5 Hyperlipidemia, unspecified; I50.23 Acute on chronic systolic (congestive) heart failure; E66.01 Morbid (severe) obesity due to excess calories; I25.118 Atherosclerotic heart disease of native coronary artery with other forms of angina pectoris; J44.9 Chronic obstructive pulmonary disease, unspecified; Z88.8 Allergy status to other drugs, medicaments and biological substances; Z79.4 Long term (current) use of insulin; Z79.82 Long term (current) use of aspirin; Z79.899 Other long term (current) drug therapy; I25.2 Old myocardial infarction; Z68.41 Body mass index [BMI] 40.0-44.9, adult; Z68.42 Body mass index [BMI] 45.0-49.9, adult
CPT/HCPCS: 36415; 71045; 80048; 80053; 82948; 83735; 84484; 85025; 87081; 93005; 94640; 94760; 96372; 99285; J1815; J2270; J3490; J7644

== ENCOUNTER 2023-08-24 19:51 | Emergency (ER) | payer MEDICAID ==
[~2023-08-24] VITALS: Ht 172.7 cm; Wt 122.0 kg
[2023-08-24 20:09] VITALS: BP 168/95; PULSE 103; RESP 20; TEMP 98.2; O2SAT 99
[2023-08-24] MEDS: MORPHINE SULFATE 4 MG/ML SYR IM ONE (22:10)
[2023-08-24 22:29] VITALS: BP 152/92; PULSE 98; RESP 19; TEMP 98.2; O2SAT 99
== END 2023-08-24 22:29 | disposition home or self-care (01) ==
LOC: MED 19:51
DX: G89.29 Other chronic pain (principal); R07.89 Other chest pain; J44.9 Chronic obstructive pulmonary disease, unspecified; E11.9 Type 2 diabetes mellitus without complications; I11.0 Hypertensive heart disease with heart failure; I50.9 Heart failure, unspecified; I25.2 Old myocardial infarction; I48.91 Unspecified atrial fibrillation; Z98.890 Other specified postprocedural states; Z79.4 Long term (current) use of insulin; Z79.82 Long term (current) use of aspirin; Z79.1 Long term (current) use of non-steroidal anti-inflammatories (NSAID); Z79.899 Other long term (current) drug therapy; Z88.6 Allergy status to analgesic agent; Z88.8 Allergy status to other drugs, medicaments and biological substances; Z88.5 Allergy status to narcotic agent
CPT/HCPCS: 93005; 96372; 99283; J2270

== ENCOUNTER 2023-08-29 21:30 | Emergency (ER) | payer MEDICAID ==
[~2023-08-29] VITALS: Ht 182.9 cm; Wt 117.9 kg
[2023-08-29] MEDS: FUROSEMIDE 40 MG/4 ML VIAL IVP ONE (00:50)
[2023-08-29 21:37] VITALS: BP 160/92; PULSE 108; RESP 16; TEMP 98.1; O2SAT 98
[2023-08-29] MEDS: MORPHINE SULFATE 4 MG/ML SYR IVP ONE (22:10)
[2023-08-29 22:11] LABS: BASOPHILS # (AUTO) 0.2 K/uL (0.00-0.22); BASOPHILS % (AUTO) 2.8 % (0.0-2.0); EOSINOPHILS # (AUTO) 0.2 K/uL (0-0.4); EOSINOPHILS % (AUTO) 3.7 % (0.0-4.0); HEMATOCRIT 32.5 % (36-48); HEMOGLOBIN 10.3 g/dL (12.0-16.0); LYMPHOCYTES # (AUTO) 1.7 K/uL (2.5-16.5); LYMPHOCYTES % (AUTO) 30.6 % (20.5-51.1); MEAN CORPUSCULAR HEMOGLOBIN 21 pg (27-31); MEAN CORPUSCULAR HGB CONC 32 g/dL (33-37); MEAN CORPUSCULAR VOLUME 65.1 fL (80-94); MONOCYTES # (AUTO) 0.4 K/uL (0.8-1.0); MONOCYTES % (AUTO) 6.4 % (1.7-9.3); NEUTROPHILS # (AUTO) 3.2 K/uL (1.8-7.7); NEUTROPHILS % (AUTO) 56.5 % (42.2-75.2); PLATELET COUNT (AUTO) 266 K/uL (140-450); RED BLOOD CELL COUNT(AUTO) 4.99 MIL/uL (4.20-5.40); RED CELL DISTRIBUTION WIDTH 21.6 % (11.6-13.7); WHITE BLOOD COUNT (AUTO) 5.7 K/uL (4.8-10.8)
[2023-08-29] MEDS: ONDANSETRON 4 MG/2 ML VIAL IVP ONE (22:13)
[2023-08-29 22:40] LABS: ALBUMIN 2.8 g/dL (3.4-5.0); ANION GAP 10.8 (8-16); CALCIUM 8.9 mg/dL (8.5-10.1); CARBON DIOXIDE 27.6 mmol/L (21-32); CREATININE 1.4 mg/dL (0.6-1.3); POTASSIUM 4.4 mmol/L (3.5-5.1); TOTAL BILIRUBIN 0.4 mg/dL (0.0-1.0); TOTAL PROTEIN, SERUM 7.5 g/dL (6.4-8.2)
[2023-08-30] MEDS: hydrALAZINE 20 MG/ML VIAL IVP ONE ×2 (00:45→02:30)
[2023-08-30] MEDS ORDERED: FUROSEMIDE 40 MG/4 ML VIAL IVP ONE (00:55)
[2023-08-30] MEDS: ASPIRIN 325 MG TAB PO ONE (00:57)
[2023-08-30] MEDS: MORPHINE SULFATE 4 MG/ML SYR IVP ONE (01:08)
[2023-08-30 03:00] VITALS: TEMP 98.1
[2023-08-30 05:20] LABS: APPEARANCE,URINE CLEAR (CLEAR); BILIRUBIN,URINE NEGATIVE (NEGATIVE); BLOOD, URINE NEGATIVE (NEGATIVE); COLOR,URINE YELLOW (YELLOW); LEUKOCYTE ESTERASE ,URINE NEGATIVE (NEGATIVE); NITRITE, URINE NEGATIVE (NEGATIVE); PROTEIN,URINE 2+ (NEGATIVE); UGLUCOSE TRACE (NEGATIVE); UROBILINOGEN,URINE 0.2 EU/dL (0.2 - 1)
[2023-08-30 05:27] VITALS: BP 139/77; PULSE 100; RESP 15; O2SAT 99
== END 2023-08-30 05:27 | disposition home or self-care (01) ==
LOC: MED 21:30
DX: R07.9 Chest pain, unspecified (principal); I11.0 Hypertensive heart disease with heart failure; J45.909 Unspecified asthma, uncomplicated; J44.9 Chronic obstructive pulmonary disease, unspecified; N28.9 Disorder of kidney and ureter, unspecified; E11.9 Type 2 diabetes mellitus without complications; Z88.5 Allergy status to narcotic agent; Z88.8 Allergy status to other drugs, medicaments and biological substances; Z79.1 Long term (current) use of non-steroidal anti-inflammatories (NSAID); Z79.899 Other long term (current) drug therapy
CPT/HCPCS: 36415; 71045; 80053; 81003; 83880; 84484; 85025; 93005; 96374; 96375; 96376; 99285; J0360; J1940; J2270; J2405; Q0092

== ENCOUNTER 2023-09-01 21:44 | Emergency (ER) | payer MEDICAID ==
[~2023-09-01] VITALS: Ht 172.7 cm; Wt 122.0 kg
[2023-09-01 21:52] VITALS: BP 172/105; PULSE 91; RESP 16; TEMP 98.3; O2SAT 98
[2023-09-01] MEDS: MORPHINE SULFATE 4 MG/ML SYR IM ONE (22:34)
[2023-09-01 23:17] VITALS: BP 162/107; PULSE 96; RESP 19; O2SAT 94
== END 2023-09-01 23:17 | disposition home or self-care (01) ==
LOC: MED 21:44
DX: G89.29 Other chronic pain (principal); R07.9 Chest pain, unspecified; J45.909 Unspecified asthma, uncomplicated; J44.9 Chronic obstructive pulmonary disease, unspecified; I25.2 Old myocardial infarction; I48.91 Unspecified atrial fibrillation; I11.0 Hypertensive heart disease with heart failure; I50.9 Heart failure, unspecified; E11.9 Type 2 diabetes mellitus without complications; Z98.890 Other specified postprocedural states; Z79.82 Long term (current) use of aspirin; Z79.84 Long term (current) use of oral hypoglycemic drugs; Z79.4 Long term (current) use of insulin; Z79.1 Long term (current) use of non-steroidal anti-inflammatories (NSAID); Z79.899 Other long term (current) drug therapy; Z88.6 Allergy status to analgesic agent; Z88.8 Allergy status to other drugs, medicaments and biological substances; Z88.4 Allergy status to anesthetic agent; Z88.5 Allergy status to narcotic agent
CPT/HCPCS: 93005; 96372; 99283; J2270

== ENCOUNTER 2023-09-13 16:36 | Inpatient (IN) | payer MEDICAID ==
[~2023-09-13] VITALS: Ht 172.7 cm; Wt 122.0 kg
[2023-09-13 16:37] VITALS: BP 170/99; PULSE 107; RESP 19; TEMP 98.9; O2SAT 97
[2023-09-13 17:12] LABS: BASOPHILS # (AUTO) 0.1 K/uL (0.00-0.22); BASOPHILS % (AUTO) 0.9 % (0.0-2.0); EOSINOPHILS # (AUTO) 0.2 K/uL (0-0.4); HEMATOCRIT 33.1 % (36-48); LYMPHOCYTES # (AUTO) 1.7 K/uL (2.5-16.5); LYMPHOCYTES % (AUTO) 25.6 % (20.5-51.1); MEAN CORPUSCULAR HEMOGLOBIN 20 pg (27-31); MEAN CORPUSCULAR HGB CONC 30 g/dL (33-37); MEAN CORPUSCULAR VOLUME 65.6 fL (80-94); MONOCYTES # (AUTO) 0.3 K/uL (0.8-1.0); MONOCYTES % (AUTO) 5.1 % (1.7-9.3); NEUTROPHILS # (AUTO) 4.4 K/uL (1.8-7.7); NEUTROPHILS % (AUTO) 65.4 % (42.2-75.2); PLATELET COUNT (AUTO) 212 K/uL (140-450); RED BLOOD CELL COUNT(AUTO) 5.04 MIL/uL (4.20-5.40); RED CELL DISTRIBUTION WIDTH 22.5 % (11.6-13.7); WHITE BLOOD COUNT (AUTO) 6.8 K/uL (4.8-10.8)
[2023-09-13] MEDS: MORPHINE SULFATE 4 MG/ML SYR IVP ONE ×2 (17:17→19:41)
[2023-09-13] MEDS: ALBUTEROL SULFATE/IPRATROPIU 3 ML SOL IH ONE (17:17)
[2023-09-13 17:18] VITALS: PULSE 96; PULSE 99; RESP 18; RESP 19; O2SAT 92
[2023-09-13 17:46] LABS: ANION GAP 11.3 (8-16); CALCIUM 8.2 mg/dL (8.5-10.1); CARBON DIOXIDE 29.1 mmol/L (21-32); CREATININE 1.4 mg/dL (0.6-1.3); POTASSIUM 4.4 mmol/L (3.5-5.1)
[2023-09-13] MEDS ORDERED: ALBUTEROL 0.083% 2.5 MG/3 ML NEBU INH PRN (20:25)
[2023-09-13] MEDS ORDERED: ACETAMINOPHEN 325 MG TAB PO PRN (20:25)
[2023-09-13 21:30] VITALS: BP 157/98; PULSE 116; PULSE 97; RESP 18; TEMP 97; O2SAT 97
[2023-09-13] MEDS ORDERED: DEXTROSE 50% 50 ML SYR IVP PRN (22:35)
[2023-09-13] MEDS: ONDANSETRON 4 MG/2 ML VIAL IVP PRN (23:30)
[2023-09-14] VITALS (9 sets, daily range): BP systolic 132–169; BP diastolic 72–102; PULSE 92–107; RESP 18–20; TEMP 96.9–99; O2SAT 93–100
[2023-09-14] MEDS: MORPHINE SULFATE 2 MG/ML SYR IVP PRN (05:15)
[2023-09-14 05:49] LABS: BASOPHILS # (AUTO) 0.1 K/uL (0.00-0.22); BASOPHILS % (AUTO) 0.9 % (0.0-2.0); EOSINOPHILS # (AUTO) 0.2 K/uL (0-0.4); EOSINOPHILS % (AUTO) 1.3 % (0.0-4.0); HEMATOCRIT 34.3 % (36-48); HEMOGLOBIN 10.5 g/dL (12.0-16.0); LYMPHOCYTES # (AUTO) 1.2 K/uL (2.5-16.5); LYMPHOCYTES % (AUTO) 9.7 % (20.5-51.1); MEAN CORPUSCULAR HEMOGLOBIN 20 pg (27-31); MEAN CORPUSCULAR HGB CONC 31 g/dL (33-37); MEAN CORPUSCULAR VOLUME 65.7 fL (80-94); MONOCYTES # (AUTO) 0.6 K/uL (0.8-1.0); MONOCYTES % (AUTO) 5.3 % (1.7-9.3); NEUTROPHILS # (AUTO) 9.9 K/uL (1.8-7.7); NEUTROPHILS % (AUTO) 82.8 % (42.2-75.2); PLATELET COUNT (AUTO) 192 K/uL (140-450); RED BLOOD CELL COUNT(AUTO) 5.22 MIL/uL (4.20-5.40); RED CELL DISTRIBUTION WIDTH 22.2 % (11.6-13.7)
[2023-09-14 06:23] LABS: ANION GAP 14.4 (8-16); CALCIUM 8.5 mg/dL (8.5-10.1); CREATININE 1.5 mg/dL (0.6-1.3); POTASSIUM 4.4 mmol/L (3.5-5.1)
[2023-09-14] MEDS: BLOOD GLUCOSE MONITORING 1 DEV DEV FS SCH (06:25)
[2023-09-14] MEDS: INSULIN LISPRO SLIDING SCALE 100 UNITS/ML VIAL SUBQ PRN (06:26)
[2023-09-14] MEDS: SPIRONOLACTONE 25 MG TAB PO SCH (11:11)
[2023-09-14] MEDS: BUMETANIDE 1 MG/4 ML VIAL IV SCH ×2 (11:18→16:35)
[2023-09-14] MEDS: APIXABAN 2.5 MG TAB PO SCH (20:35)
[2023-09-14] MEDS: carvediloL 12.5 MG TAB PO SCH (20:36)
[2023-09-15] VITALS: BP 112/75; PULSE 104; PULSE 96; RESP 18; TEMP 98.1; O2SAT 95
[2023-09-15 04:00] VITALS: BP 121/76; PULSE 94; PULSE 97; RESP 18; TEMP 98.3; O2SAT 98
[2023-09-15 08:00] VITALS: BP 112/67; PULSE 77; PULSE 78; RESP 18; TEMP 98; O2SAT 98
[2023-09-15] MEDS: lisinopriL 5 MG TAB PO SCH (09:16)
[2023-09-15] MEDS: ECOTRIN 81 MG TABEC PO SCH (09:16)
[2023-09-15] MEDS: SPIRONOLACTONE 25 MG TAB PO SCH (09:17)
[2023-09-15] MEDS: ATORVASTATIN 20 MG TAB PO SCH (09:17)
[2023-09-15 12:00] VITALS: BP 117/67; PULSE 75; RESP 19; TEMP 97.8; O2SAT 94
[2023-09-15 14:18] VITALS: BP 117/67; PULSE 78; RESP 18; TEMP 97.8
[2023-09-15 16:00] VITALS: BP 102/62; PULSE 75; RESP 19; TEMP 98.8; O2SAT 98
== END 2023-09-15 17:38 | disposition home or self-care (01) | DRG 190 ==
LOC: MED 16:36 → MTU 20:26 → MMU 21:10
PROVIDERS: ADMIT Hospitalist; ATTEND Hospitalist
DX: I21.4 Non-ST elevation (NSTEMI) myocardial infarction (principal); R65.11 Systemic inflammatory response syndrome (SIRS) of non-infectious origin with acute organ dysfunction; I50.23 Acute on chronic systolic (congestive) heart failure; E11.22 Type 2 diabetes mellitus with diabetic chronic kidney disease; I44.7 Left bundle-branch block, unspecified; I13.0 Hypertensive heart and chronic kidney disease with heart failure and stage 1 through stage 4 chronic kidney disease, or unspecified chronic kidney disease; N18.9 Chronic kidney disease, unspecified; E83.51 Hypocalcemia; I10 Essential (primary) hypertension; E66.9 Obesity, unspecified; I48.0 Paroxysmal atrial fibrillation; E78.5 Hyperlipidemia, unspecified; J44.9 Chronic obstructive pulmonary disease, unspecified; Z68.41 Body mass index [BMI] 40.0-44.9, adult; Z79.01 Long term (current) use of anticoagulants; Z88.8 Allergy status to other drugs, medicaments and biological substances; Z79.82 Long term (current) use of aspirin; Z79.4 Long term (current) use of insulin; Z79.899 Other long term (current) drug therapy
CPT/HCPCS: 36415; 71045; 80048; 82948; 83735; 83880; 84484; 85025; 87081; 93005; 94640; 96374; 96375; 99285; J1815; J2270; J2405; J3490

== ENCOUNTER 2023-09-16 03:28 | Emergency (ER) | payer MEDICAID ==
[~2023-09-16] VITALS: Ht 172.7 cm; Wt 122.0 kg
[2023-09-16 03:28] VITALS: BP 151/86; PULSE 102; RESP 22; TEMP 98; O2SAT 99
[2023-09-16] MEDS: ALBUTEROL SULFATE/IPRATROPIU 3 ML SOL IH ONE (03:42)
[2023-09-16] MEDS: methylPREDNISolone SS 125 MG/2 ML VIAL IVP ONE (03:43)
[2023-09-16 03:45] VITALS: PULSE 102; PULSE 90; RESP 20; O2SAT 94; O2SAT 96; O2SAT 99
[2023-09-16] MEDS ORDERED: ONDANSETRON 4 MG/2 ML VIAL ONE (03:45)
[2023-09-16] MEDS: ONDANSETRON 4 MG/2 ML VIAL IVP ONE (03:49)
[2023-09-16 03:51] LABS: PLATELET COUNT (AUTO) 219 K/uL (140-450); RED CELL DISTRIBUTION WIDTH 22.3 % (11.6-13.7)
[2023-09-16 04:00] LABS: HEMOGLOBIN 9.4 g/dL (12.0-16.0); MEAN CORPUSCULAR HEMOGLOBIN 20 pg (27-31); MEAN CORPUSCULAR HGB CONC 30 g/dL (33-37); RED BLOOD CELL COUNT(AUTO) 4.77 MIL/uL (4.20-5.40); WHITE BLOOD COUNT (AUTO) 9.5 K/uL (4.8-10.8)
[2023-09-16 04:04] LABS: ANION GAP 9.2 (8-16); CALCIUM 8.5 mg/dL (8.5-10.1); CARBON DIOXIDE 32.5 mmol/L (21-32); CREATININE 1.6 mg/dL (0.6-1.3); POTASSIUM 4.7 mmol/L (3.5-5.1)
[2023-09-16 04:13] LABS: EOSINOPHILS % (MANUAL) 2 % (0-4); LYMPHOCYTES % (MANUAL) 13 % (20-46); MONOCYTES % (MANUAL) 3 % (5-12)
[2023-09-16 04:27] LABS: INR 1.07 (0.8-1.2); PROTHROMBIN TIME 11.2 secs (10.8-13.4)
[2023-09-16 04:34] LABS: PARTIAL THROMBOPLASTIN TIME 50.1 secs (22-35.6)
[2023-09-16] MEDS: MORPHINE SULFATE 4 MG/ML SYR IVP ONE (04:36)
[2023-09-16 06:01] VITALS: TEMP 98
[2023-09-16 08:38] VITALS: O2SAT 95
[2023-09-16 08:57] VITALS: BP 155/85; PULSE 97; RESP 17; O2SAT 95
== END 2023-09-16 08:59 | disposition home or self-care (01) ==
LOC: MED 03:28
DX: J44.1 Chronic obstructive pulmonary disease with (acute) exacerbation (principal); J45.909 Unspecified asthma, uncomplicated; I13.0 Hypertensive heart and chronic kidney disease with heart failure and stage 1 through stage 4 chronic kidney disease, or unspecified chronic kidney disease; E11.22 Type 2 diabetes mellitus with diabetic chronic kidney disease; N18.9 Chronic kidney disease, unspecified; Z79.4 Long term (current) use of insulin; Z79.899 Other long term (current) drug therapy; Z88.5 Allergy status to narcotic agent; Z88.6 Allergy status to analgesic agent; Z88.8 Allergy status to other drugs, medicaments and biological substances
CPT/HCPCS: 36415; 71045; 80048; 83880; 84484; 85025; 85610; 85730; 93005; 94640; 96374; 96375; 99285; J2270; J2405; J2919

== ENCOUNTER 2023-09-17 10:37 | Observation (INO) | payer MEDICAID ==
[~2023-09-17] VITALS: Ht 172.7 cm; Wt 122.5 kg
[2023-09-17 10:41] VITALS: BP 160/76; PULSE 91; RESP 17; TEMP 97.3; O2SAT 85
[2023-09-17] MEDS ORDERED: ALBUTEROL SULFATE/IPRATROPIU 3 ML SOL IH ONE (10:48)
[2023-09-17 10:53] VITALS: PULSE 89; PULSE 90; RESP 18; RESP 20; O2SAT 95; O2SAT 96
[2023-09-17 11:05] LABS: HEMOGLOBIN 9.4 g/dL (12.0-16.0); MEAN CORPUSCULAR HEMOGLOBIN 20 pg (27-31); MEAN CORPUSCULAR HGB CONC 30 g/dL (33-37); PLATELET COUNT (AUTO) 272 K/uL (140-450); RED CELL DISTRIBUTION WIDTH 22.1 % (11.6-13.7); WHITE BLOOD COUNT (AUTO) 15.4 K/uL (4.8-10.8)
[2023-09-17 11:39] LABS: ALBUMIN 2.6 g/dL (3.4-5.0); ANION GAP 10.4 (8-16); CALCIUM 8.6 mg/dL (8.5-10.1); CARBON DIOXIDE 32.2 mmol/L (21-32); CREATININE 2.4 mg/dL (0.6-1.3); POTASSIUM 4.6 mmol/L (3.5-5.1); TOTAL BILIRUBIN 0.5 mg/dL (0.0-1.0)
[2023-09-17 11:50] LABS: MONOCYTES % (MANUAL) 7 % (5-12)
[2023-09-17 11:51] LABS: EOSINOPHILS % (MANUAL) 2 % (0-4); LYMPHOCYTES % (MANUAL) 12 % (20-46)
[2023-09-17] MEDS: ASPIRIN 81 MG TAB.CHEW PO ONE (11:59)
[2023-09-17] MEDS: MORPHINE SULFATE 4 MG/ML SYR IVP ONE (11:59)
[2023-09-17] MEDS: FUROSEMIDE 40 MG/4 ML VIAL IVP SCH (12:00)
[2023-09-17] MEDS ORDERED: POTASSIUM CHLORIDE 10 MEQ TABER PO PRN (13:20)
[2023-09-17] MEDS ORDERED: ACETAMINOPHEN 325 MG TAB PO PRN (13:20)
[2023-09-17] MEDS ORDERED: HYDROcodone/APAP 5/325 MG 1 TAB TAB PO PRN (13:20)
[2023-09-17] MEDS ORDERED: ONDANSETRON 4 MG/2 ML VIAL IVP PRN (13:20)
[2023-09-17] MEDS ORDERED: MAGNESIUM OXIDE 400 MG TAB PO PRN (13:20)
[2023-09-17] MEDS ORDERED: KCL 20 MEQ IN 100 mL PREMIX 200 ML IV PRN (13:20)
[2023-09-17] MEDS ORDERED: MAG SULF 2000 MG/WATER PREMIX 50 ML IV PRN (13:20)
[2023-09-17] MEDS: MORPHINE SULFATE 4 MG/ML SYR IVP PRN (17:07)
[2023-09-17] MEDS: hydrALAZINE 20 MG/ML VIAL IVP STA (21:39)
[2023-09-17 23:00] VITALS: BP 125/58; PULSE 100; PULSE 92; RESP 20; TEMP 97; O2SAT 96
[2023-09-18 04:00] VITALS: BP 140/101; PULSE 111; PULSE 99; RESP 20; TEMP 97.3; O2SAT 93
[2023-09-18 06:59] LABS: BASOPHILS % (AUTO) 0.3 % (0.0-2.0); HEMATOCRIT 32.5 % (36-48); HEMOGLOBIN 9.8 g/dL (12.0-16.0); LYMPHOCYTES # (AUTO) 1.9 K/uL (2.5-16.5); LYMPHOCYTES % (AUTO) 13.3 % (20.5-51.1); MEAN CORPUSCULAR HEMOGLOBIN 20 pg (27-31); MEAN CORPUSCULAR HGB CONC 30 g/dL (33-37); MEAN CORPUSCULAR VOLUME 65.8 fL (80-94); MONOCYTES # (AUTO) 1.2 K/uL (0.8-1.0); MONOCYTES % (AUTO) 8.5 % (1.7-9.3); NEUTROPHILS # (AUTO) 11.2 K/uL (1.8-7.7); NEUTROPHILS % (AUTO) 77.9 % (42.2-75.2); PLATELET COUNT (AUTO) 301 K/uL (140-450); RED BLOOD CELL COUNT(AUTO) 4.94 MIL/uL (4.20-5.40); WHITE BLOOD COUNT (AUTO) 14.4 K/uL (4.8-10.8)
[2023-09-18 07:31] LABS: ALBUMIN 2.6 g/dL (3.4-5.0); ANION GAP 12.8 (8-16); CALCIUM 8.8 mg/dL (8.5-10.1); CARBON DIOXIDE 31.1 mmol/L (21-32); CREATININE 2.1 mg/dL (0.6-1.3); MAGNESIUM 2.1 mg/dL (1.8-2.4); POTASSIUM 4.9 mmol/L (3.5-5.1); TOTAL BILIRUBIN 0.4 mg/dL (0.0-1.0); TOTAL PROTEIN, SERUM 8.2 g/dL (6.4-8.2)
[2023-09-18 08:00] VITALS: BP 131/82; PULSE 89; PULSE 94; PULSE 99; RESP 18; TEMP 97.3; O2SAT 94
[2023-09-18] MEDS: FUROSEMIDE 40 MG/4 ML VIAL IVP SCH (09:29)
[2023-09-18 12:00] VITALS: BP 147/92; PULSE 84; PULSE 90; RESP 18; TEMP 97.3; O2SAT 97
[2023-09-18 12:40] VITALS: O2SAT 99
[2023-09-18 16:00] VITALS: BP 143/79; PULSE 87; PULSE 88; RESP 18; TEMP 97.4; O2SAT 98
[2023-09-18] MEDS: BUMETANIDE 1 MG/4 ML VIAL IV SCH (17:55)
[2023-09-19] MEDS ORDERED: PROPOFOL 200 MG/20 ML VIAL IV ONE ×2 (16:36→17:36)
[2023-09-19] MEDS ORDERED: PHENYLEPHRINE 10 MG/ML VIAL ONE (17:36)
== END 2023-09-18 19:28 | disposition home or self-care (01) ==
LOC: MED 10:37 → MMU 13:51 → MTU 20:42
PROVIDERS: ADMIT Hospitalist; ATTEND Hospitalist
DX: I13.0 Hypertensive heart and chronic kidney disease with heart failure and stage 1 through stage 4 chronic kidney disease, or unspecified chronic kidney disease (principal); E11.22 Type 2 diabetes mellitus with diabetic chronic kidney disease; N18.9 Chronic kidney disease, unspecified; I50.23 Acute on chronic systolic (congestive) heart failure; J44.1 Chronic obstructive pulmonary disease with (acute) exacerbation; R79.89 Other specified abnormal findings of blood chemistry; E66.9 Obesity, unspecified; I25.2 Old myocardial infarction; I48.0 Paroxysmal atrial fibrillation; S01.111A Laceration without foreign body of right eyelid and periocular area, initial encounter; R51.9 Headache, unspecified; N17.9 Acute kidney failure, unspecified; I25.5 Ischemic cardiomyopathy; Z79.82 Long term (current) use of aspirin; Z79.4 Long term (current) use of insulin; Z79.899 Other long term (current) drug therapy; Z88.6 Allergy status to analgesic agent; Z88.5 Allergy status to narcotic agent; Z88.8 Allergy status to other drugs, medicaments and biological substances; Z68.41 Body mass index [BMI] 40.0-44.9, adult; W19.XXXA Unspecified fall, initial encounter; Y93.89 Activity, other specified; Y92.89 Other specified places as the place of occurrence of the external cause; Y99.8 Other external cause status
CPT/HCPCS: 36415; 70450; 71045; 80053; 83735; 83880; 84484; 85025; 87081; 93005; 96374; 96375; 96376; 99285; G0378; J0360; J1940; J2270; J3490; J2370; J2704

== ENCOUNTER 2023-09-20 03:40 | Emergency (ER) | payer MEDICAID ==
[~2023-09-20] VITALS: Ht 167.6 cm; Wt 108.9 kg
[2023-09-20 04:12] VITALS: BP 187/100; PULSE 99; RESP 16; TEMP 98.3; O2SAT 90
[2023-09-20] MEDS: MORPHINE SULFATE 4 MG/ML SYR IVP ONE (05:36)
[2023-09-20 06:07] VITALS: BP 170/96; PULSE 94; RESP 18; TEMP 98; O2SAT 92
== END 2023-09-20 06:07 | disposition home or self-care (01) ==
LOC: MED 03:40
DX: J44.9 Chronic obstructive pulmonary disease, unspecified (principal); I13.0 Hypertensive heart and chronic kidney disease with heart failure and stage 1 through stage 4 chronic kidney disease, or unspecified chronic kidney disease; E11.22 Type 2 diabetes mellitus with diabetic chronic kidney disease; N18.9 Chronic kidney disease, unspecified; I50.9 Heart failure, unspecified; I48.91 Unspecified atrial fibrillation; I25.2 Old myocardial infarction; Z79.82 Long term (current) use of aspirin; Z79.4 Long term (current) use of insulin; Z79.1 Long term (current) use of non-steroidal anti-inflammatories (NSAID); Z79.899 Other long term (current) drug therapy; Z88.6 Allergy status to analgesic agent; Z88.5 Allergy status to narcotic agent; Z88.8 Allergy status to other drugs, medicaments and biological substances
CPT/HCPCS: 93005; 96374; 99283; J2270

== ENCOUNTER 2023-09-21 17:36 | Inpatient (IN) | payer MEDICAID ==
[~2023-09-21] VITALS: Ht 172.7 cm; Wt 122.0 kg
[2023-09-21] MEDS ORDERED: ALBUTEROL SULFATE/IPRATROPIU 3 ML SOL IH ONE (18:04)
[2023-09-21 18:05] VITALS: BP 191/96; PULSE 97; RESP 22; TEMP 98.4; O2SAT 79
[2023-09-21 18:06] VITALS: PULSE 94; RESP 18; O2SAT 98
[2023-09-21] MEDS: ALBUTEROL SULFATE/IPRATROPIU 3 ML SOL IH ONE (18:12)
[2023-09-21 19:17] LABS: BASOPHILS # (AUTO) 0.1 K/uL (0.00-0.22); BASOPHILS % (AUTO) 1.2 % (0.0-2.0); EOSINOPHILS # (AUTO) 0.2 K/uL (0-0.4); EOSINOPHILS % (AUTO) 1.7 % (0.0-4.0); HEMOGLOBIN 9.8 g/dL (12.0-16.0); LYMPHOCYTES # (AUTO) 1.6 K/uL (2.5-16.5); LYMPHOCYTES % (AUTO) 17.4 % (20.5-51.1); MEAN CORPUSCULAR HEMOGLOBIN 20 pg (27-31); MEAN CORPUSCULAR HGB CONC 31 g/dL (33-37); MEAN CORPUSCULAR VOLUME 64.9 fL (80-94); MONOCYTES % (AUTO) 10.8 % (1.7-9.3); NEUTROPHILS # (AUTO) 6.2 K/uL (1.8-7.7); NEUTROPHILS % (AUTO) 68.9 % (42.2-75.2); PLATELET COUNT (AUTO) 376 K/uL (140-450); RED BLOOD CELL COUNT(AUTO) 4.94 MIL/uL (4.20-5.40); RED CELL DISTRIBUTION WIDTH 22.4 % (11.6-13.7); WHITE BLOOD COUNT (AUTO) 8.9 K/uL (4.8-10.8)
[2023-09-21 19:32] LABS: ALBUMIN 2.5 g/dL (3.4-5.0); ANION GAP 9.2 (8-16); CALCIUM 8.5 mg/dL (8.5-10.1); CARBON DIOXIDE 34.9 mmol/L (21-32); CREATININE 1.7 mg/dL (0.6-1.3); POTASSIUM 4.1 mmol/L (3.5-5.1); TOTAL BILIRUBIN 0.5 mg/dL (0.0-1.0); TOTAL PROTEIN, SERUM 7.7 g/dL (6.4-8.2)
[2023-09-21 20:46] LABS: BLOOD GAS BASE EXCESS 1.7 mmol/L (-2.0-2.0); BLOOD GAS HCO3 28.2 mmol/L (22-26); BLOOD GAS PCO2 52.9 mmHg (35-45); BLOOD GAS PH 7.344 (7.35-7.45); BLOOD GAS PO2 111.4 mmHg (75-100)
[2023-09-21 20:47] LABS: BLOOD GAS O2 SAT% 98.2 % (92.0-98.5)
[2023-09-21] MEDS: INSULIN REGULAR, HUMAN 100 UNIT/ML VIAL SUBQ ONE (20:53)
[2023-09-21] MEDS: MORPHINE SULFATE 4 MG/ML SYR IVP ONE (21:00)
[2023-09-22] VITALS (11 sets, daily range): BP systolic 136–170; BP diastolic 67–95; PULSE 82–105; RESP 18–21; TEMP 97.3–98.2; O2SAT 92–99
[2023-09-22] MEDS: hydrALAZINE 20 MG/ML VIAL IVP PRN (00:58)
[2023-09-22 06:56] LABS: BASOPHILS # (AUTO) 0.1 K/uL (0.00-0.22); BASOPHILS % (AUTO) 0.6 % (0.0-2.0); EOSINOPHILS # (AUTO) 0.2 K/uL (0-0.4); EOSINOPHILS % (AUTO) 2.1 % (0.0-4.0); HEMATOCRIT 31.3 % (36-48); HEMOGLOBIN 9.4 g/dL (12.0-16.0); LYMPHOCYTES # (AUTO) 1.8 K/uL (2.5-16.5); LYMPHOCYTES % (AUTO) 16.2 % (20.5-51.1); MEAN CORPUSCULAR HEMOGLOBIN 20 pg (27-31); MEAN CORPUSCULAR HGB CONC 30 g/dL (33-37); MEAN CORPUSCULAR VOLUME 65.5 fL (80-94); MONOCYTES # (AUTO) 1.3 K/uL (0.8-1.0); MONOCYTES % (AUTO) 11.9 % (1.7-9.3); NEUTROPHILS # (AUTO) 7.8 K/uL (1.8-7.7); NEUTROPHILS % (AUTO) 69.2 % (42.2-75.2); PLATELET COUNT (AUTO) 367 K/uL (140-450); RED BLOOD CELL COUNT(AUTO) 4.79 MIL/uL (4.20-5.40); RED CELL DISTRIBUTION WIDTH 22.3 % (11.6-13.7); WHITE BLOOD COUNT (AUTO) 11.2 K/uL (4.8-10.8)
[2023-09-22 07:05] LABS: ANION GAP 8.4 (8-16); CALCIUM 8.5 mg/dL (8.5-10.1); CARBON DIOXIDE 35.4 mmol/L (21-32); CREATININE 1.5 mg/dL (0.6-1.3); POTASSIUM 3.8 mmol/L (3.5-5.1)
[2023-09-22] MEDS: BLOOD GLUCOSE MONITORING 1 DEV DEV FS SCH (08:03)
[2023-09-22] MEDS: INSULIN LISPRO SLIDING SCALE 100 UNITS/ML VIAL SUBQ PRN (08:06)
[2023-09-22] MEDS: ONDANSETRON 4 MG/2 ML VIAL IVP PRN (08:51)
[2023-09-22] MEDS: ACETAMINOPHEN 325 MG TAB PO PRN (08:52)
[2023-09-22] MEDS: FUROSEMIDE 40 MG/4 ML VIAL IVP SCH (08:52)
[2023-09-22] MEDS: MORPHINE SULFATE 2 MG/ML SYR IVP PRN (20:34)
[2023-09-23] VITALS: BP 141/88; PULSE 102; PULSE 98; RESP 20; TEMP 97.4; O2SAT 92
[2023-09-23 01:52] VITALS: O2SAT 90
[2023-09-23 04:00] VITALS: BP 143/82; PULSE 95; PULSE 96; RESP 20; TEMP 97.9; O2SAT 96
[2023-09-23 07:35] VITALS: O2SAT 98
[2023-09-23 08:00] VITALS: BP 158/85; PULSE 89; PULSE 96; RESP 16; TEMP 96.9; O2SAT 99
== END 2023-09-23 09:30 | disposition home or self-care (01) | DRG 190 ==
LOC: MED 17:36 → MTU 22:28
PROVIDERS: ADMIT Hospitalist; ATTEND Hospitalist
DX: I21.4 Non-ST elevation (NSTEMI) myocardial infarction (principal); J96.21 Acute and chronic respiratory failure with hypoxia; I50.23 Acute on chronic systolic (congestive) heart failure; I13.0 Hypertensive heart and chronic kidney disease with heart failure and stage 1 through stage 4 chronic kidney disease, or unspecified chronic kidney disease; E11.22 Type 2 diabetes mellitus with diabetic chronic kidney disease; Z79.01 Long term (current) use of anticoagulants; E78.5 Hyperlipidemia, unspecified; I48.0 Paroxysmal atrial fibrillation; I25.118 Atherosclerotic heart disease of native coronary artery with other forms of angina pectoris; E66.01 Morbid (severe) obesity due to excess calories; N18.9 Chronic kidney disease, unspecified; I25.2 Old myocardial infarction; Z88.8 Allergy status to other drugs, medicaments and biological substances; Z79.4 Long term (current) use of insulin; Z79.82 Long term (current) use of aspirin; Z79.899 Other long term (current) drug therapy; Z68.41 Body mass index [BMI] 40.0-44.9, adult; Z79.51 Long term (current) use of inhaled steroids
CPT/HCPCS: 36415; 36600; 71045; 80048; 80053; 82803; 82948; 83735; 83880; 84484; 85025; 87081; 93005; 96372; 96374; 99285; J0360; J1815; J1940; J2270; J2405